=== PATIENT | female | born 1965 | race Caucasian/White ===

== ENCOUNTER 2023-09-03 10:05 | Outpatient (OUT) | payer OTHER, SELFPAY ==
[2023-09-03 11:19] LABS: Basophils Absolute Auto 0.1 10^3/uL (0.0-0.1); Basophils Percent Auto 0.9 % (0.2-2.0); Eosinophils Absolute Auto 0.2 10^3/uL (0.0-0.7); Eosinophils Percent Auto 3.5 % (0.9-7.0); Hematocrit 45.5 % (36.0-48.0); Hemoglobin 14.6 g/dL (12.0-16.0); Immature Granulocytes Abs Auto 0.02 10^3/uL (0.00-0.03); Immature Granulocytes Pct Auto 0.3 % (0.0-0.5); Lymphocytes Absolute Auto 1.7 10^3/uL (1.2-3.8); Lymphocytes Percent Auto 25.4 % (20.5-60.0); Mean Corpuscular HGB Conc 32.1 g/dL (29.9-35.2); Mean Corpuscular Hemoglobin 28.2 pg (26.7-34.0); Mean Platelet Volume 10.2 fL (9.5-13.5); Monocytes Absolute Auto 0.7 10^3/uL (0.3-0.8); Monocytes Percent Auto 10.6 % (1.7-12.0); Neutrophils Absolute Auto 3.9 10^3/uL (1.4-6.5); Neutrophils Percent Auto 59.3 % (43.0-75.0); Platelet Count 218 10^3/uL (150-450); Red Blood Count 5.17 10^6/uL (4.20-5.40); Red Cell Distribution Width 13.8 % (11.0-15.0); White Blood Count 6.5 10^3/uL (4.0-11.0)
[2023-09-03 11:46] LABS: Alanine Aminotransferase 18 U/L (14-59); Albumin Level 3.9 g/dL (3.4-5.0); Alkaline Phosphatase 105 U/L (46-116); Anion Gap 13.9; Aspartate Amino Transferase 27 U/L (15-37); BUN Creatinine Ratio 13.2; Bilirubin Total 1.2 mg/dL (0.2-1.0); Calcium 9.4 mg/dL (8.5-10.1); Carbon Dioxide 26.7 mmol/L (21.0-32.0); Chloride 105 mmol/L (98-107); Chol HDL Ratio 2.3; Cholesterol 183 mg/dL (<=200); Estimated GFR (African America >60 (>=60); Estimated GFR (Non-African Ame >60 (>=60); Globulin 4.1 g/dL; Glucose 107 mg/dL (74-106); HDL Cholesterol 79 mg/dL (40-60); Potassium 3.6 mmol/L (3.5-5.1); Sodium 142 mmol/L (136-145); Triglycerides 94 mg/dL (<=150); VLDL CHOLESTEROL 18.8 mg/dL
[2023-09-03 12:11] LABS: Estimated Average Glucose 114 mg/dL; Glycohemoglobin A1C 5.6 % (4.5-6.2)
[2023-09-05 12:07] LABS: Insulin 35.9 uIU/mL (2.6-24.9)
== END 2023-09-03 10:06 | disposition home or self-care (01) ==
LOC: LAB 10:13
PROVIDERS: PCP Family Medicine; Visit Provider Family Medicine
DX: Z00.00 Encounter for general adult medical examination without abnormal findings (principal)
CPT/HCPCS: 36415; 80053; 80061; 82306; 83036; 83525; 83540; 84436; 84443; 84481; 85025

== ENCOUNTER 2023-12-31 10:54 | Outpatient (OUT) | payer OTHER, SELFPAY ==
--- NOTE | 2023-12-31 10:56 | MM_ITS ---
Patient Name: RICHELLE MONTES MR#: [id number] : 1965 Exam Date: 12/31/2023 Ordering Doctor: DR Nick Ledbetter . RADIOLOGY REPORT PROCEDURE: MM TOMOSYNTHESIS SCREENING BI COMPARISON: None. INDICATIONS: Screening Calculator Name NCI Breast Cancer Risk Assessment Tool 5 Year Breast Cancer Risk n/a% Lifetime Breast Cancer Risk n/a% Personal Breast Cancer Yes Personal Ovarian Cancer No Treatments Breast cancer right breast Age 47 Chemo/Radiation with lumpectomy Family Cancers Mother with breast cancer at age 42; Grandmother-maternal with breast cancer at age 73. LOCATION: [facility] BREAST COMPOSITION: Almost entirely fatty. FINDINGS: DIAGNOSTIC CATEGORY 2--BENIGN FINDING: RIGHT BREAST: No significant suspicious finding. Scattered benign-appearing calcifications are present. Stable surgical changes and scarring posterior upper-outer quadrant. No significant change has occurred. LEFT BREAST: No significant suspicious finding. Scattered benign-appearing calcifications are present. No significant change has occurred. RECOMMENDATIONS: ROUTINE MAMMOGRAM AND CLINICAL EVALUATION IN 12 MONTHS. PLEASE NOTE: A NORMAL MAMMOGRAM DOES NOT EXCLUDE THE POSSIBILITY OF BREAST CANCER. A CLINICALLY SUSPICIOUS PALPABLE LUMP SHOULD BE BIOPSIED. Dictated by: Jose M Castillo M.D. on 12/31/2023 at 14:20 Approved by: Jose M Castillo M.D. on 12/31/2023 at 14:23
--- OUTSIDE RECORDS SUMMARY | 2023-12-31 11:15 | XMS_ITS | CCD ---
Author Name Unknown Address [address] [place] [address] Organization [facility] Care Team Providers Care Plastics Engineer Name Role Phone PHYSICIAN, DEFAULT Unavailable Unavailable PHYSICIAN, DEFAULT Unavailable Unavailable JUICE NAPOLES Unavailable Unavailable Heath Silva Unavailable CRISTINA, DR BURNHAM Primary Care Unavailable ENGSHANNAN, DR NORA Zamorano Admitting Unavailable ENGELELeni, DR NORA Zamorano Consulting Unavailable CECILIA, DR NORA Zamorano Attending Unavailable ZIEBER, DR JOSE M Farrar Consulting Unavailable CRISTINA, DR BURNHAM Primary Care Unavailable MISC, DR BOWERS Attending Unavailable MISC, DR BOWERS Admitting Unavailable MISC, DR BOWERS Consulting Unavailable CRISTINA, DR BURNHAM Primary Care Unavailable CRISTINA, DR BURNHAM Consulting Unavailable CRISTINA, DR BURNHAM Attending Unavailable CRISTINA, DR BURNHAM Admitting Unavailable CRISTINA, DR BURNHAM Consulting Unavailable CRISTINA, DR BURNHAM Attending Unavailable CRISTINA, DR BURNHAM Admitting Unavailable CRISTINA, DR BURNHAM Primary Care Unavailable ENGSHANNAN, DR NORA Zamorano Admitting Unavailable ENGELELeni, DR NORA Zamorano Attending Unavailable SHAWANDA, DR JTET Burns Consulting Unavailable CRISTINA, DR BURNHAM Primary Care Unavailable CECILIA, DR NORA Zamorano Consulting Unavailable Chacha Ledbetter MD Primary Care Provider [phone] FAHEEM ROCK Referring Unavailable CHACHA LEDBETTER Primary Care Unavailable Chacha Ledbetter MD Primary Care Provider [phone] JOSUE HINOJOSA Attending Unavailable JOSUE HINOJOSA Attending Unavailable JOSUE HINOJOSA Attending Unavailable Chacha Ledbetter MD Primary Care Provider [phone] Medications Current Medications Medication Drug Class(es) Dates Sig (Normalized) Sig (Original) acetaminophen 325 mg / HYDROcodone bitartrate 5 mg oral tablet (6 sources) Opioid Agonist Start: 07-08-2021 take 1 tablet by mouth every four hours as needed for pain HYDROcodone-Acetam inophen 5-325 MG 1 tablet as needed for pain Orally up to every 4 hrs for 3 days Jun, Active [id number] actuat albuterol 0.09 mg/actuat metered dose inhaler (3 sources) beta2-Adrenergic Agonist Start: 02-13-2019 take 2 puff(s) by inhalation every four hours as needed for wheezing albuterol (PROVENTIL HFA;VENTOLIN HFA) 90 mcg/actuation inhaler Indications: Upper respiratory tract infection, unspecified type , Cough in adult Inhale 2 puffs every 4 (four) hours as needed for wheezing. 18 g 4 02/13/2019 Active Start: 08-13-2017 PROAIR HFA 90 mcg/actuation inhaler albuterol HFA (P roAir HFA) 90 mcg/act inhaler every 4 (four) hours. 0 Active amLODIPine 10 mg oral tablet (8 sources) Dihydropyridine Calcium Channel Thalia Start: 10-13-2020 take 1 tablet by mouth in the morning amLODIPine (Norvasc) 10 MG tablet Take 10 mg by mouth in the morning. 0 03/14/2023 Active Comment on above: TK 1 T PO QD cholecalciferol 0.025 mg oral tablet (3 sources) Vitamin D take 1 tablet by mouth every twenty-four hours Vitamin D3 25 MCG (1000 UT) 1 tablet Orally Once a day Active diclofenac sodium 75 mg delayed release oral tablet (6 sources) Nonsteroidal Anti-inflammatory Drug take 1 tablet by mouth every twelve hours Diclofenac Sodium 75 MG 1 tablet Orally Twice a day Active doxepin hydrochloride 10 mg oral capsule (1 source) Tricyclic Antidepressant take 1 capsule by mouth once daily doxepin (SINEquan) 10 mg capsule Take 1 capsule (10 mg total) by mouth nightly. 0 Active ferrous sulfate 325 mg oral tablet (3 sources) take 1 tablet by mouth every twenty-four hours Iron 325 (65 Fe) MG 1 tablet Orally Once a day Active fluocinonide 0.0005 mg/mg topical ointment (1 source) Corticosteroid Start: 03-10-2023 fluocinonide (Lidex) 0.05 % ointment APPLY TOPICALLY TO HANDS AND KNEES TWICE DAILY 0 03/10/2023 Active Iron (3 sources) take 1 tablet by mouth once daily Iron 325 (65 Fe) MG 1 tablet Orally Once a day Active levoFLOXacin 500 mg oral tablet (1 source) Quinolone Antimicrobial Start: 10-22-2022 take 1 tablet by mouth in the morning levoFLOXacin (Levaquin) 500 MG tablet Take 1 tablet by mouth in the morning. 0 10/22/2022 Active levothyroxine sodium 0.15 mg oral tablet (9 sources) l-Thyroxine Start: 04-16-2023 levothyroxine (SYNTHROID, LEVOTHROID) 150 MCG tablet Indications: Postablative hypothyroidism Take 1 tablet (150 mcg total) by mouth in the morning. 2 tabs on Saturdays and Sundays. 114 tablet 3 09/03/2023 Active Start: 09-19-2012 take 1 tablet by marcelina th once daily levothyroxine (SYNTHROID) 150 mcg tablet Take 1 tablet by mouth once daily. 0 09/19/2012 Active take 1 tablet by marcelina th once daily in the morning Levothyroxine Sodium 150 MCG 1 tablet in the morning on an empty stomach Orally Once a day Active Comment on above: Take 1 tablet by marcelina th once daily. 24 hr metFORMIN hydrochloride 500 mg extended release oral tablet (9 sources) Biguanide Start: 09-03-2023 take 1 tablet by mouth once daily at dinner metFORMIN XR (GLUCOPHAGE XR) 500 mg 24 hr tablet Indications: Type 2 diabetes mellitus without complication, without long-term current use of insulin ([facility]) Take 1 tablet (500 mg total) by mouth daily with dinner. 90 tablet 3 09/03/2023 Active Start: 10-21-2022 take 1 tablet by marcelina th at mealtime metFORMIN (Glucophage) 500 MG tablet Take 500 mg by mouth in the evening. Take with meals. 0 10/21/2022 Active Start: 03-14-2017 take 2 tablets by mo uth twice daily at mealtime metFORMIN ER (GLUCOPHAGE XR) 500 mg 24 hr tablet TK 2 TS PO BID WITH A MEAL 1 03/14/2017 Active take 1 tablet by marcelina th every twenty-four hours metFORMIN HCl ER 500 MG 1 tablet with evening meal Orally Once a day Active Comment on above: TK 2 TS PO BID WITH A MEAL methylPREDNISolone (1 source) Corticosteroid Start: 2021 methylPREDNISolone (Medrol Dospak) 4 MG tablets FOLLOW PACKAGE DIRECTIONS 0 09/11/2022 Active multivitamin capsule (1 source) take 1 capsule by mouth in the morning multivitamin capsule Take 1 capsule by mouth in the morning. 0 Active Multivitamin preparation (6 sources) take 1 tablet by mouth once daily Multi Vitamin - 1 tablet Orally Once a day Active predniSONE 10 mg oral tablet (1 source) Start: 2022 take 2 tablets by mouth twice daily, then take 1 tablet by mouth twice daily, then take 1 tablet by mouth once daily predniSONE (Deltasone) 10 MG tablet Indications: Osteoarthritis of right ankle and foot Take 2 pills by mouth twice daily for 5 days, take 1 pill twice daily for 5 days then 1 pill once daily for 5 days. 35 tablet 1 08/02/2023 Active simvastatin 20 mg oral tablet (7 sources) HMG-CoA Reductase Inhibitor Start: 2022 take 1 tablet by mouth in the evening simvastatin (Zocor) 20 MG tablet Take 20 mg by mouth in the evening. 0 03/18/2023 Active take 1 tablet by marcelina th every twenty-four hours Simvastatin 20 MG 1 tablet in the evenin g Orally Once a day Active 24 hr verapamil hydrochloride 200 mg extended release oral capsule (2 sources) Calcium Channel Thalia Start: 04-18-2019 take 2 capsules by mouth once daily in the evening verapamil HCl ER (VERELAN PM) 200 mg capsule, [address] Indications: Essential hypertension Take 2 capsules (400 mg total) by mouth daily. 180 capsule 0 04/18/2019 Active Start: 09-19-2012 take 200 mg by mouth once daily at bedtime verapamil PM 200 mg CPCT Take 200 mg by mouth daily at bedtime. 0 09/19/2012 Active Comment on above: Take 200 mg by mouth daily at bedtime. Vitamin D3 25 MCG (1000 UT) (3 sources) take 1 tablet by mouth once daily Vitamin D3 25 MCG (1000 UT) 1 tablet Orally Once a day Active Completed/Discontinued Medications Medication Drug Class(es) Dates Sig (Normalized) Sig (Original) amitriptyline hydrochloride 25 mg oral tablet (8 sources) Tricyclic Antidepressant Start: 09-19-2012 take 1 tablet by mouth once daily at bedtime amitriptyline 25 mg tablet Take 1 tablet by mouth daily at bedtime. 0 09/19/2012 Active take 1 tablet by mouth once stephen y amitriptyline (ELAVIL) 10 mg tablet Take 1 tablet (10 mg total) by mouth nightly. 0 Active Comment on above: Take 1 tablet by marcelina th daily at bedtime. lisinopril 5 mg oral tablet (2 sources) Angiotensin Converting Enzyme Inhibitor Start: 04-11-20 take 1 tablet by mouth once daily lisinopril (ZESTRIL, PRINIVIL) 5 mg tablet TK 1 T PO QD 1 04/11/2017 Active Comment on above: TK 1 T PO QD MULTIVITAMIN TABLET (1 source) Start: 07-08-20 MULTIVITAMIN TABLET Triamcinolone (5 sources) Corticosteroid Start: 01-13-20 Kenalog -40 mg Jan, 40 mg Start: 06-17-2021 Kenalog -40 mg Jun, 40 mg Problems Active Problems Problem Classification Problem Date Documented Date Episodic/Chronic Cancer of breast (3 sources) Intraductal carcinoma in situ of breast; Translations: [Intraductal carcinoma in situ of unspecified breast] Onset: 08-11-2013 08-11-2013 Chronic Complications of surgical procedures or medical care (2 sources) Postprocedural hypothyroidism; 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] Onset: 10-08-2018 11-15-2023 Chronic Diabetes mellitus without complication (2 sources) Type 2 diabetes mellitus without complications; Translations: [Type 2 diabetes mellitus] Onset: 05-21-2017 05-21-2017 Chronic Essential hypertension (1 source) Hypertensive disorder; Translations: [Essential (primary) hypertension] Onset: 05-21-2017 05-21-2017 Chronic Menstrual disorders (1 source) Irregular periods; Translations: [Irregular menstruation, unspecified] Onset: 04-20-2013 04-20-2013 Chronic Osteoarthritis (12 sources) Osteoarthritis of left knee joint; Translations: [Unilateral primary osteoarthritis, left knee] Onset: 11-04-2021 Resolved: 02-03-2022 Chronic Other congenital anomalies (1 source) Congenital deformity of toe; Translations: [Congenital deformity of feet, unspecified, unspecified foot] Onset: 04-30-2023 04-30-2023 Chronic Other female genital disorders (1 source) Complex atypical endometrial hyperplasia; 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]] Onset: 10-07-2018 10-07-2018 Chronic Other upper respiratory infections (1 source) Acute sinusitis, unspecified; Translations: [ACUTE SINUSITIS UNSPECIFIED] Onset: 09-30-2022 Episodic Residual codes; unclassified (1 source) Family history of malignant neoplasm of breast; Translations: [FAMILY HX MALIG NEOPLASM OF BREAST] Onset: 12-25-2022 Episodic Thyroid disorders (1 source) Hypothyroidism; Translations: [Hypothyroidism, unspecified] Onset: 10-08-2018 10-08-2018 Chronic Unclassified (3 sources) CONTACT W/AND (SUSP) EXPOS COVID-19; Translations: [CONTACT W/AND (SUSP) EXPOS COVID-19] Onset: 09-30-2022 Past or Other Problems Problem Classification Problem Date Documented Date Episodic/Chronic Cancer of breast (6 sources) Personal history of malignant neoplasm of breast; Translations: [History of malignant neoplasm of breast] Onset: 06-27-2014 Episodic Complications of surgical procedures or medical care (1 source) Non-healing surgical wound; Translations: [Other complications of procedures, not elsewhere classified, initial encounter] Onset: 11-16-2018 11-16-2018 Episodic Joint disorders and dislocations; trauma-related (4 sources) Other tear of medial meniscus, current injury, left knee, subsequent encounter Onset: 10-14-2021 Resolved: 01-12-2022 Episodic Mood disorders (1 source) Mood disorders Onset: 12-17-2017 12-17-2017 Mycoses (1 source) Onychomycosis; Translations: [Tinea unguium] Onset: 04-30-2023 04-30-2023 Episodic Other connective tissue disease (1 source) Pain in both feet; Translations: [Pain in right foot] Onset: 04-30-2023 04-30-2023 Episodic Other connective tissue disease (1 source) Tendinitis of right posterior tibial tendon; Translations: [Posterior tibial tendinitis, right leg] Onset: 04-30-2023 04-30-2023 Episodic Other diseases of veins and lymphatics (1 source) Vascular insufficiency; Translations: [Venous insufficiency (chronic) (peripheral)] Onset: 04-30-2023 04-30-2023 Episodic Other ear and sense organ disorders (1 source) Subjective tinnitus; Translations: [Tinnitus, unspecified ear] Onset: 07-08-2004 07-08-2004 Episodic Other skin disorders (1 source) Callosity; Translations: [Corns and callosities] Onset: 04-30-2023 04-30-2023 Episodic Residual codes; unclassified (4 sources) Other specified postprocedural states Onset: 10-14-2021 Resolved: 01-12-2022 Episodic Respiratory failure; insufficiency; arrest (adult) (1 source) Hypoxemic respiratory failure; Translations: [Respiratory failure, unspecified with hypoxia] Onset: 10-21-2018 10-21-2018 Episodic Unclassified (1 source) CONTACT W/AND (SUSP) EXPOS COVID-19; Translations: [CONTACT W/AND (SUSP) EXPOS COVID-19] Onset: 09-28-2022 Unclassified (1 source) Onset: 05-10-2018 05-10-2018 Results Test Name Value Interpretation Reference Range Facility MICROALBUMIN - ALBUMIN:CREAT ININE URINE RATIOon 11-12-2023 ALB/CREAT RATIO 13.5 mg/g creat Normal 0.0-30.0 [facility] Comment on above: Performed By: #### M ALBU #### [facility] ([id number]) [address] [place] [address], [address] [place] [address] Albumin DL <= 20 mg/L (U) [Mass/Vol] 0.7 mg/dL Normal 0.0-1.9 [facility] Comment on above: Performed By: #### M ALBU #### [facility] ([id number]) [address] [place] [address], [address] [place] [address] URINE CREAT 51.79 mg/dL Normal [facility] Comment on above: Performed By: #### M ALBU #### [facility] ([id number]) [address] [place] [address], [address] [place] [address] THYROID PROFILEon 11-12-2023 Free T4 [Mass/Vol] 1.37 ng/dL Normal 0.61-1.60 [facility] Comment on above: Performed By: #### T HYR #### [facility] ([id number]) [address] [place] [address] TSH 0.06 uIU/mL Low 0.49-4.67 [facility] Comment on above: Performed By: #### T HYR #### [facility] ([id number]) [address] [place] [id number] Binta 04-06-2023 CNPN Telephone (RADTSA) RICHELLE PELAEZ ([id number]) 1965 F Date Time Provider Department 04/06/23 Adam LINDO During your visit today, we recorded the following information about you: Courtney Garcia LPN 04/06/2023 8:48 AM Signed Richelle called wondering if she needs to continue follow up with Dr. Lindo. She said she completed radiation therapy years ago, 2011. She said Dr. Ledbetter is her pcp and she sees him when she needs to. I explained that if Dr. Lindo agrees to releasing her as a patient that Dr. Ledbetter will need to order her yearly mammograms. Please advise. KRISHNA Geronimo LPN 04/06/2023 3:00 PM Signed I left a message notifying Richelle that she can continue follow up with her PCP. She is due for a bilateral mammogram mid Dec 2023 and she will need her PCP to order it. I encouraged her to call with further questions/concerns. Courtney Garcia LPN Allergies As of Date: 04/06/2023 (No Known Allergies) Date Reviewed: 01/15/2022 Reviewed by: Laurie Suresh, AMBER - Fully Assessed Reason for Visit: Patient Question [5817] Prescriptions as of 04/06/2023 - amLODIPine (NORVASC) 10 mg tablet TK 1 T PO QD - PROAIR HFA 90 mcg/actuation inhaler - lisinopril (ZESTRIL, PRINIVIL) 5 mg tablet TK 1 T PO QD - metFORMIN ER (GLUCOPHAGE XR) 500 mg 24 hr tablet TK 2 TS PO BID WITH A MEAL - amitriptyline 25 mg tablet Take 1 tablet by mouth daily at bedtime. - levothyroxine (SYNTHROID) 150 mcg tablet Take 1 tablet by mouth once daily. - verapamil PM 200 mg CPCT Take 200 mg by mouth daily at bedtime. 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 Admission #: [id number] Family : Order #: [id number] CLICK HERE TO VIEW EXAM RADIOLOGY REPORT PROCEDURE: MAMMOGRAM DIAGNOSTIC 3D BILATERAL CAD COMPARISON: MG MAMM DIAGNOSTIC 3D MARGARITA CAD, 01/01/2022. MG MAMM MARGARITA DIAG W CAD, 12/20/2020. INDICATIONS: Personal history of malignant neoplasm of breast Calculator Name NCI Breast Cancer Risk Assessment Tool 5 Year Breast Cancer Risk n/a% Lifetime Breast Cancer Risk n/a% Personal Breast Cancer Yes Personal Ovarian Cancer No Treatments Breast cancer right breast Age 47 Chemo/Radiation with lumpectomy Family Cancers Mother with breast cancer at age 42; Grandmother-maternal with breast cancer at age 73. LOCATION: [facility] BREAST COMPOSITION: Almost entirely fatty. FINDINGS: DIAGNOSTIC CATEGORY 2--BENIGN FINDING. NO CHANGE FROM COMPARISON. Scattered benign-appearing calcifications are present. Scattered benign-appearing lymph nodes are present. RIGHT BREAST: Asymmetrically small. Architectural distortion and microcalcifications quadrant, stable, postsurgical changes. LEFT BREAST: No significant suspicious finding. RECOMMENDATIONS: ROUTINE MAMMOGRAM AND CLINICAL EVALUATION IN 12 MONTHS. PLEASE NOTE: A NORMAL MAMMOGRAM DOES NOT EXCLUDE THE POSSIBILITY OF BREAST CANCER. A CLINICALLY SUSPICIOUS PALPABLE LUMP SHOULD BE BIOPSIED. Dictated by: Jett Magdaleno MD on 12/21/2022 at 13:46 Approved by: Jett Magdaleno MD on 12/21/2022 at 13:48 Normal [facility] Covid-19 PCR (CVDTBH)on 09-09 SARS-CoV-2 (COVID-19) RNA ERIC+probe Ql (Unsp spec) Not detected Normal NOT DETECTED [facility] Comment on above: Result Comment: When diagnostic testing is negative, the possibility of a false negative should be considered in the context of a patient's recent exposures and the presence of clinical signs and symptoms consistent with SARS-CoV-2. This test is not yet approved or cleared by the [place] FDA. When there are no FDA-approved or cleared tests available, and other criteria are met, FDA can make tests available under an emergency access mechanism called an Emergency Use Authorization (EUA). The EUA for this test is supported by the [place] of Health and Human Service's declaration that circumstances exist to justify the emergency use of in vitro diagnostics for the detection and/or diagnosis of the virus that causes COVID-19. This EUA will remain in effect for the duration of the COVID-19 declaration justifying emergency of IVDs, unless it is terminated or revoked by the FDA (after which the test may no longer be used). Performed By: #### C VDTBH #### [facility] [address] [place] [address] Dr. Lisbeth Ramirez INFLUENZA A AND B [facility] 09-28 [facility] SEE BELOW Normal [facility] Comment on above: Result Comment: Nega tive for Flu A protein angiten. Infection due to Flu A cannot be ruled out. Flu A angiten in the sample may be below the detection limit of the test. Performed By: #### I NFLUAB #### [facility] [address] [place] [address] Dr. [facility] Normal [facility] Comment on above: Result Comment: Nega tive for Flu B protein antigen. Infection due to Flu B cannot be ruled out. Flu B antigen in the sample may be below the detection limit of the test. Performed By: #### I NFLUAB #### [facility] [address] [place] [address] Dr. Lisbeth Ramirez INFLUENZA A AG Negative Normal NEGATIVE SEE COMMENT [facility] Comment on above: Performed By: #### I NFLUAB #### [facility] [address] [place] [address] Dr. Lisbeth Ramirez INFLUENZA B AG Negative Normal NEGATIVE SEE COMMENT [facility] Comment on above: Performed By: #### I NFLUAB #### [facility] [address] [place] [address] Dr. Lisbeth Ramirez INTERNAL CONTROLS Within Normal Limits Normal Wi thin Normal Limits [facility] Comment on above: Performed By: #### I NFLUAB #### [facility] [address] [place] [address] Dr. Lisbeth Ramirez INSULINon 08-29-2022 Insulin 30.4 uIU/mL Critically high 2.6-24.9 [facility] Comment on above: Performed By: #### I NSULIN #### [facility] [address] [place] [address] Dr. Lisbeth Ramirez CBC AUTO DIFFon 08-28-2022 BASO # 0.1 103/ul Normal 0.0-0.1 [facility] Comment on above: Performed By: #### C BC #### [facility] [address] [place] [address] Dr. Lisbeth Ramirez Basophils/100 WBC (Bld) 0.8 % Normal 0.2-2.0 [facility] Comment on above: Performed By: #### C BC #### [facility] [address] [place] [address] Dr. Lisbeth Ramirez EO # 0.2 103/ul Normal 0.0-0.7 [facility] Comment on above: Performed By: #### C BC #### [facility] [address] [place] [address] Dr. Lisbeth Ramirez Eosinophils/100 WBC (Bld) 2.5 % Normal 0.9-7.0 [facility] Comment on above: Performed By: #### C BC #### [facility] [address] [place] [address] Dr. Lisbeth Ramirez Erythrocyte distribution width (RBC) [Ratio] 13.0 % Normal 11.0-15.0 [facility] Comment on above: Performed By: #### C BC #### [facility] [address] [place] [address] Dr. Lisbeth Ramirez Hematocrit (Bld) [Volume fraction] 42.1 % Normal 36.0-48.0 [facility] Comment on above: Performed By: #### C BC #### [facility] [address] [place] [address] Dr. Lisbeth Ramirez Hemoglobin (Bld) [Mass/Vol] 14.0 g/dL Normal 12.0-16.0 [facility] Comment on above: Performed By: #### C BC #### [facility] [address] [place] [address] Dr. Lisbeth Ramirez IG # 0.02 10e3/ul Normal 0.00-0.03 [facility] Comment on above: Performed By: #### C BC #### [facility] [address] [place] [address] Dr. Lisbeth Ramirez IG % 0.2 % Normal 0.0-0.5 [facility] Comment on above: Performed By: #### C BC #### [facility] [address] [place] [address] Dr. Lisbeth Ramirez LYMPH # 1.8 103/ul Normal 1.2-3.8 [facility] Comment on above: Performed By: #### C BC #### [facility] [address] [place] [address] Dr. Lisbeth Ramirez Lymphocytes/100 WBC (Bld) 20.9 % Normal 20.5-60.0 [facility] Comment on above: Performed By: #### C BC #### [facility] [address] [place] [address] Dr. Lisbeth Ramirez MANUAL DIFF REQ NO Normal [facility] Comment on above: Performed By: #### C BC #### [facility] [address] [place] [address] Dr. Lisbeth Ramirez MCH (RBC) [Entitic mass] 28.7 pg Normal 26.7-34.0 [facility] Comment on above: Performed By: #### C BC #### [facility] [address] [place] [address] Dr. Lisbeth Ramirez MCHC (RBC) [Mass/Vol] 33.3 g/dL Normal 29.9-35.2 [facility] [facility] Comment on above: Performed By: #### C BC #### [facility] Laboratory [address] [place] [address] Dr. Lisbeth Ramirez MCV (RBC) [Entitic vol] 86.4 fL Normal 81.0-99.0 [facility] Comment on above: Performed By: #### C BC #### [facility] [address] [place] [address] Dr. Lisbeth Ramirez MONO # 0.8 103/ul Normal 0.3-0.8 [facility] Comment on above: Performed By: #### C BC #### [facility] [address] [place] [address] Dr. Lisbeth Ramirez Monocytes/100 WBC (Bld) 8.8 % Normal 1.7-12.0 [facility] Comment on above: Performed By: #### C BC #### [facility] [address] [place] [address] Dr. Lisbeth Ramirez NEUT # 5.8 103/ul Normal 1.4-6.5 [facility] Comment on above: Performed By: #### C BC #### [facility] [address] [place] [address] Dr. Lisbeth Ramirez Neutrophils/100 WBC (Bld) 66.8 % Normal 43.0-75.0 [facility] Comment on above: Performed By: #### C BC #### [facility] [address] [place] [address] Dr. Lisbeth Ramirez Platelet mean volume (Bld) [Entitic vol] 10.5 fL Normal 9.5-13.5 [facility] Comment on above: Performed By: #### C BC #### [facility] [address] [place] [address] Dr. Lisbeth Ramirez PLT 222 103/ul Normal 150-450 [facility] Comment on above: Performed By: #### C BC #### [facility] [address] [address] [address] Lisbeth Ramirez RBC 4.87 106/ul Normal 4.20-5.40 [facility] Comment on above: Performed By: #### C BC #### [facility] [address] [address] [address] Lisbeth Ramirez WBC 8.7 103/ul Normal 4.0-11.0 [facility] Comment on above: Performed By: #### C BC #### [facility] [address] [address] [address] Lisbeth Ramirez FREE THYROXINE INDEX T7on FTI 3.80 Normal 1.30-4.50 [facility] Comment on above: Performed By: #### T SH, CMP, LIPID, T7 ####[facility] [address] [place] [address]Dr. Lisbeth Ramirez T3U 33.0 % Normal 30.0-39.0 [facility] Comment on above: Performed By: #### T SH, CMP, LIPID, T7 ####[facility] [address] [place] [address]Dr. Lisbeth Ramirez T4 [Mass/Vol] 11.50 ug/dL Normal 4.80-13.90 [facility] Comment on above: Performed By: #### T SH, CMP, LIPID, T7 ####[facility] [address] [place] [address]Dr. Lisbeth Ramirez GLYCOHEMOGLOBIN A1Con 2021 ADA RECOMMENDATION SEE BELOW Normal [facility] Comment on above: Result Comment: ADA RECOMMENDED LIMIT 4.0 - 6.0 ADA THERAPEUTIC TARGET < 7.0 ACTION SUGGESTED > 7.0 Performed By: #### A 1C #### [facility] [address] [address] [address] Lisbeth Ramirez Glucose [Mass/Vol] 105 mg/dL Normal [facility] Comment on above: Performed By: #### A 1C #### [facility] [address] [place], [place] [address] Dr. Lisbeth Ramirez HbA1c (Bld) [Mass fraction] 5.3 % Normal 4.5-6.2 [facility] Comment on above: Performed By: #### A 1C #### [facility] [address] [address] Lisbeth Ramirez IRONon 08-28-2022 Iron [Mass/Vol] 54.0 ug/dL Normal 50.0-170.0 [facility] Comment on above: Performed By: #### I DAGO #### [facility] [address] [address] [address] Lisbeth Ramirez LIPID PROFILEon 08-28-2022 CHOL-HDL RATIO NORM SEE BELOW Normal [facility] Comment on above: Result Comment: 3.3 - 4.4 LOW RISK 4.4 - 7.1 AVERAGE RISK 7.1 - 11.0 MODERATE RISK >11.0 HIGH RISK Performed By: #### T SH, CMP, LIPID, T7 ####[facility] [address] [place] [address]Dr. Lisbeth Ramirez Cholesterol [Mass/Vol] 187 mg/dL Normal <=200 [facility] Comment on above: Performed By: #### T SH, CMP, LIPID, T7 ####[facility] [address] [place], [place] [address]Hs. Lisbeth Ramirez Cholesterol in HDL [Mass/Vol] 67 mg/dL Critically high 40-60 [facility] Comment on above: Performed By: #### T SH, CMP, LIPID, T7 ####[facility] [address] [place], [place] [address]Bd. Lisbeth Ramirez Cholesterol in LDL [Mass/Vol] 95.8 mg/dL Normal [facility] Comment on above: Performed By: #### T SH, CMP, LIPID, T7 ####[facility] [address] [place] [address]Dr. Lisbeth Ramirez Cholesterol.total/Cho lesterol in HDL [Mass ratio] 2.8 {ratio} Normal [facility] Comment on above: Performed By: #### T SH, CMP, LIPID, T7 ####[facility] [address] [place] [address]Dr. Lisbeth Ramirez HDL NORMAL > or = 60 mg/dl - LOW CARDIOVASCULAR RISK <40 mg/dl - HIGH CARDIOVASCULAR RISK Normal [facility] Comment on above: Performed By: #### T SH, CMP, LIPID, T7 ####[facility] [address] [place] [address]Dr. Lisbeth Ramirez LDL CALC NORMAL SEE BELOW Normal [facility] Comment on above: Result Comment: <100 mg/dl OPTIMAL 100 - 129 mg/dl NEAR OR ABOVE OPTIMAL 130 - 159 mg/dl BORDERLINE HIGH 160 - 189 mg/dl HIGH >190 mg/dl VERY HIGH Performed By: #### T SH, CMP, LIPID, T7 ####[facility] [address] [place] [address]Dr. Lisbeth Ramirez Triglyceride [Mass/Vol] 121 mg/dL Normal <=150 [facility] Comment on above: Performed By: #### T SH, CMP, LIPID, T7 ####[facility] [address] [place] [address]Dr. Lisbeth Ramirez VLDL CALC 24.2 mg/dL Normal [facility] Comment on above: Performed By: #### T SH, CMP, LIPID, T7 ####[facility] [address] [place] [address]Dr. Lisbeth Ramirez PROF 14(COMP METB)on 022 Albumin [Mass/Vol] 4.1 g/dL Normal 3.4-5.0 [facility] Comment on above: Performed By: #### T SH, CMP, LIPID, T7 ####[facility] [address] [place] [address]Dr. Lisbeth Ramirez Albumin/Globulin [Mass ratio] 0.9 {ratio} Normal [facility] Comment on above: Performed By: #### T SH, CMP, LIPID, T7 ####[facility] [address] [place] [address]Dr. Lisbeth Ramirez ALP [Catalytic activity/Vol] 94 U/L Normal 46-116 [facility] Comment on above: Performed By: #### T SH, CMP, LIPID, T7 ####[facility] [address] [place] [address]Dr. Lisbeth Ramirez ALT [Catalytic activity/Vol] 13 U/L Critically low 14-59 [facility] Comment on above: Performed By: #### T SH, CMP, LIPID, T7 ####[facility] [address] [place] [address]Dr. Lisbeth Ramirez Anion gap [Moles/Vol] 11.4 mmol/L Normal [facility] Comment on above: Performed By: #### T SH, CMP, LIPID, T7 ####[facility] [address] [place] [address]Dr. Lisbeth Ramirez AST [Catalytic activity/Vol] 23 U/L Normal 15-37 [facility] Comment on above: Performed By: #### T SH, CMP, LIPID, T7 ####[facility] [address] [place] [address]Dr. Davidajorge Ramirez Bilirubin [Mass/Vol] 0.7 mg/dL Normal 0.2-1.0 [facility] Comment on above: Performed By: #### T SH, CMP, LIPID, T7 ####[facility] [address] [place] [address]Dr. Davidajorge Ramirez Calcium [Mass/Vol] 9.5 mg/dL Normal 8.5-10.1 [facility] Comment on above: Performed By: #### T SH, CMP, LIPID, T7 ####[facility] [address] [place] [address]Dr. Davidajorge Ramirez Chloride [Moles/Vol] 104 mmol/L Normal 98-107 [facility] Comment on above: Performed By: #### T SH, CMP, LIPID, T7 ####[facility] [address] [place] [address]Dr. Lisbeth Ramirez CO2 [Moles/Vol] 25.9 mmol/L Normal 21.0-32.0 [facility] Comment on above: Performed By: #### T SH, CMP, LIPID, T7 ####[facility] [address] [place] [address]Dr. Lisbeth Ramirez Creatinine [Mass/Vol] 0.67 mg/dL Normal 0.55-1.02 [facility] Comment on above: Performed By: #### T SH, CMP, LIPID, T7 ####[facility] [address] [place] [address]Dr. Lisbeth Ramirez EGFR-AF CANADIAN >60 Normal >=60 [facility] [place] Comment on above: Performed By: #### T SH, CMP, LIPID, T7 ####[facility] [address] [place] [address]Dr. Lisbeth Ramirez EGFR-NON AF CANADIAN >60 Normal >=60 [facility] Comment on above: Performed By: #### T SH, CMP, LIPID, T7 ####[facility] [address] [place] [address]Dr. Lisbeth Ramirez Globulin (S) [Mass/Vol] 4.2 g/dL Normal [facility] Comment on above: Performed By: #### T SH, CMP, LIPID, T7 ####[facility] [address] [address]Dr. Lisbeth Ramirez Glucose [Mass/Vol] 103 mg/dL Normal 74-106 [facility] Comment on above: Performed By: #### T SH, CMP, LIPID, T7 ####[facility] [address] [place] [address]Dr. Davidajorge Ramirez Potassium [Moles/Vol] 3.6 mmol/L Normal 3.5-5.1 [facility] Comment on above: Performed By: #### T SH, CMP, LIPID, T7 ####[facility] [address] [place] [address]Dr. Davidajorge Ramirez Protein [Mass/Vol] 8.3 g/dL Critically high 6.4-8.2 [facility] Comment on above: Performed By: #### T SH, CMP, LIPID, T7 ####[facility] [address] [place] [address]Dr. Lisbeth Ramirez Sodium [Moles/Vol] 138 mmol/L Normal 136-145 [facility] Comment on above: Performed By: #### T SH, CMP, LIPID, T7 ####[facility] [address] [place] [address]Dr. Lisbeth Ramirez Urea nitrogen [Mass/Vol] 12.0 mg/dL Normal 7.0-18.0 [facility] Comment on above: Performed By: #### T SH, CMP, LIPID, T7 ####[facility] [address] [place] [address]Dr. Lisbeth Ramirez Urea nitrogen/Creatinine [Mass ratio] 17.9 mg/mg Normal [facility] Comment on above: Performed By: #### T SH, CMP, LIPID, T7 ####[facility] [address] [place] [address]Dr. Lisbeth Ramirez TSHon 08-28-2022 TSH 0.572 uIU/mL Normal 0.358-3.740 [facility] Comment on above: Performed By: #### T SH, CMP, LIPID, T7 ####[facility] [address] [place] [address]DrJuliana Ramirez UA (CLEAN/CATCH) COURSE INSTRUCTOR/MICRO I F IND.on 06-10-2022 Bilirubin Ql (U) Negative Normal NEGATIVE [facility] Comment on above: Performed By: #### U SUMI UMICRO #### [facility] [address] [place] [address] Dr. Lisbeth Ramirez Clarity (U) CLEAR Normal CLEAR [facility] Comment on above: Performed By: #### U SUMI UMICRO #### [facility] [address] [address] [address] Lisbeth Ramirez Color (U) YELLOW Normal YELLOW [facility] Comment on above: Performed By: #### U ACSBLAISE UMICRO #### [facility] [address] [address] [address] Lisbeth Ramirez Glucose Ql (U) Negative Normal NEGATIVE [facility] Comment on above: Performed By: #### U ACSBLAISE UMICRO #### [facility] [address] [address] [address] Lisbeth Ramirez Hemoglobin Ql (U) MODERATE Abnormal NEGATIVE [facility] Comment on above: Performed By: #### U ACSIND, UMICRO #### [facility] [address] [address] [address] Lisbeth Ramirez Ketones Ql (U) Negative Normal NEGATIVE [facility] Comment on above: Performed By: #### U ACSIND, UMICRO #### [facility] [address] [address] [address] Lisbeth Ramirez LEUKOCYTES TRACE Abnormal NEGATIVE [facility] Comment on above: Performed By: #### U ACSIND, UMICRO #### [facility] [address] [address] [address] Lisbeth Ramirez Nitrite Ql (U) Negative Normal NEGATIVE [facility] Comment on above: Performed By: #### U ACSIND, UMICRO #### [facility] [address] [place] [address] Dr. Lisbeth Ramirez pH (U) 6.0 [pH] Normal 5-9 [facility] Comment on above: Performed By: #### U ACSIND, UMICRO #### [facility] [address] [place] [address] Dr. Lisbeth Ramirez SPEC GRAVITY 1.025 Normal 1.005-<=1.025 [facility] Comment on above: Performed By: #### U ACSIND, UMICRO #### [facility] [address] [place] [address] Dr. Lisbeth Ramirez UA PROTEIN Negative Normal NEGATIVE/ TRACE [facility] Comment on above: Performed By: #### U ACSIND, UMICRO #### [facility] [address] [place] [address] Dr. Lisbeth Ramirez UR MICRO IND INDICATED Normal [facility] Comment on above: Performed By: #### U ACSIND, UMICRO #### [facility] [address] [place] [address] Dr. Lisbeth Ramirez Urobilinogen Qn (U) 0.2 {Ricci'U}/dL Normal 0.2 - 1. 0 [facility] Comment on above: Performed By: #### U ACSIND, UMICRO #### [facility] [address] [address] [address] Lisbeth Ramirez URINE MICROSCOPIC ONLYon BACTERIA NONE SEEN Normal NONE SEEN [facility] Comment on above: Performed By: #### U ACSBLAISE, UMICRO #### [facility] [address] [address] [address] Lisbeth Ramirez Bacteria identified Cx Nom (U) NOT INDICATED Normal [facility] Comment on above: Performed By: #### U ACSBLAISE, UMICRO #### [facility] [address] [place] [address] Dr. Lisbeth Ramirez CAST NONE SEEN Normal NONE SEEN [facility] Comment on above: Performed By: #### U ACSBLAISE, UMICRO #### [facility] [address] [place] [address] Dr. Lisbeth Ramirez Crystals LM Nom (Urine sed) NONE SEEN Normal NONE SEEN [facility] Comment on above: Performed By: #### U ACSBLAISE ICRO #### [facility] [address] [place] [address] Dr. Lisbeth Ramirez Epithelial cells LM Ql (Urine sed) FEW Abnormal NONE SEEN /RARE [facility] Comment on above: Performed By: #### U SUMI ICRO #### [facility] [address] [place] [address] Dr. Lisbeth Ramirez MUCOUS NONE SEEN Normal NONE SEEN [facility] Comment on above: Performed By: #### U SUMI UMICRO #### [facility] [address] [place] [address] Dr. Lisbeth Ramirez RBC 2-5 Abnormal 0-2 [facility] Comment on above: Performed By: #### U SUMI UMICRO #### [facility] [address] [place] [address] Dr. Lisbeth Ramirez WBC 0-2 Abnormal NONE SEEN [facility] Comment on above: Performed By: #### U SUMI UMICRO #### [facility] [address] [place] [address] Dr. Lisbeth Ramirez XR knee LT 2Von 01-12-2022 XR knee LT 2V [facility] Main Surveyor [address] [place] [address] XRay Report Signed Patient: Richelle Pelaez MR#: [id number] : 1965 Acct:[id number] Age/Sex: 56 / F ADM Date: 01/12/22 Loc: [facility] Room: Type: [facility] Attending Dr: Heath Silva MD Ordering Provider: Heath Silva MD Date of Service: 01/12/22 XR/XR knee LT 2V: Other tear of medial meniscus, current injury, left knee, lyons Copies to: Heath Silva MD Left knee 01/12/2022. CLINICAL DATA: Left knee pain. FINDINGS: Standing AP and lateral views of the left knee were obtained. No acute fracture or dislocation is identified. There is loss of the joint space in the medial femorotibial compartment. Marginal osteophyte formation is seen in this location and in the patellofemoral compartment. No bony erosion or destruction is visualized. There are a small amount of fluid and collections of air in the suprapatellar region. XR/XR knee LT 2V IMPRESSION: Degenerative changes. No acute bony abnormality. Subcutaneous air in the suprapatellar region, potentially iatrogenic and related to recent intervention. Impression dictated by: Andrea Carney Jr., M.D.01/12/2022 4:14 PM Dictation Location: [place] [address] Transcribed By: [facility] 01/12/22 1614 Dictated By: Andrea Carney Jr, MD 01/12/22 1608 Signed By: 01/12/22 1614 Normal [facility] MG MAMM DIAGNOSTIC 3D MARGARITA CA Don 01-01-2022 MG MAMM DIAGNOSTIC 3D MARGARITA CAD Patient: RICHELLE PELAEZ Exam Date: 01/01/2022 : 1965 Gender:F Ordering : DR NORA LINDO M.D. Admission #: [id number] Family : Order #: [id number] CLICK HERE TO VIEW EXAM RADIOLOGY REPORT PROCEDURE: MAMMOGRAM DIAGNOSTIC 3D BILATERAL CAD COMPARISON: MG MAMM MARGARITA DIAG W CAD, 12/05/2019. MG MAMM MARGARITA DIAG W CAD, 12/20/2020. INDICATIONS: Personal history of malignant neoplasm of breast Calculator Name NCI Breast Cancer Risk Assessment Tool 5 Year Breast Cancer Risk n/a% Lifetime Breast Cancer Risk n/a% Personal Breast Cancer Yes Personal Ovarian Cancer No Treatments Breast cancer right breast Age 47 Chemo/Radiation with lumpectomy Family Cancers Mother with breast cancer at age 42; Grandmother-maternal with breast cancer at age 73. LOCATION: [facility] BREAST COMPOSITION: Almost entirely fatty. FINDINGS: DIAGNOSTIC CATEGORY 2--BENIGN FINDING: RIGHT BREAST: No significant suspicious finding. Stable surgical scarring within upper-outer quadrant. Scattered benign-appearing calcifications are present and stable. No significant change has occurred. LEFT BREAST: No significant suspicious finding. Scattered benign-appearing calcifications are present. No significant change has occurred. RECOMMENDATIONS: ROUTINE MAMMOGRAM AND CLINICAL EVALUATION IN 12 MONTHS. PLEASE NOTE: A NORMAL MAMMOGRAM DOES NOT EXCLUDE THE POSSIBILITY OF BREAST CANCER. A CLINICALLY SUSPICIOUS PALPABLE LUMP SHOULD BE BIOPSIED. Dictated by: Jose M Castillo M.D. on 01/01/2022 at 15:32 Approved by: Jose M Castillo M.D. on 01/01/2022 at 15:42 Normal [facility] TSHon 05-22-2019 TSH Qn 2.23 uIU/ml Normal 0.47-4.68 [facility] Comment on above: Performed By: #### 7 50, 800, 1000, 1005, 4500, 4520, 4575 #### [facility] Unless Otherwise Noted [address] [place], [place] [id number] / [facility] #1824/CLIA # [id number] VITAMIN B12on 05-22-2019 Cobalamin (Vitamin B12) [Mass/Vol] 713.0 pg/mL Normal 239.0-931.0 [facility] Comment on above: Performed By: #### 7 50, 800, 1000, 1005, 4500, 4520, 4575 #### [facility] Unless Otherwise Noted [address] [address] / [facility] #3424/CLIA # [id number] AFINION A1Con 05-19-2019 HbA1c (Bld) [Mass fraction] 5.6 G/DL Normal 4.5-6.0 [facility] Comment on above: Performed By: #### 7 50, 800, 1000, 1005, 4500, 4520, 4575 #### [facility] Unless Otherwise Noted [address] [place] [address] / [facility] #4724/CLIA # [id number] Comprehensiveon 05-19-2019 Albumin [Mass/Vol] 4.4 g/dL Normal 3.5-5.0 [facility] Comment on above: Performed By: #### 7 50, 800, 1000, 1005, 4500, 4520, 4575 #### [facility] Unless Otherwise Noted [address] [place] [address] / [facility] #4724/CLIA # [id number] ALP [Catalytic activity/Vol] 98.0 U/L Normal 38.0-126.0 [facility] Comment on above: Performed By: #### 7 50, 800, 1000, 1005, 4500, 4520, 4575 #### [facility] Unless Otherwise Noted [address] [address] / [facility] #4724/CLIA # [id number] ALT [Catalytic activity/Vol] 16.0 U/L Normal 13.0-69.0 [facility] Comment on above: Performed By: #### 7 50, 800, 1000, 1005, 4500, 4520, 4575 #### [facility] Unless Otherwise Noted [address] [address] / [facility] #4724/CLIA # [id number] Anion gap [Moles/Vol] 7.0 mmol/L Low 10.0-15.0 [facility] Comment on above: Performed By: #### 7 50, 800, 1000, 1005, 4500, 4520, 4575 #### [facility] Unless Otherwise Noted [address] [address] / [facility] #4724/CLIA # [id number] AST [Catalytic activity/Vol] 39.0 U/L Normal 15.0-46.0 [facility] Comment on above: Performed By: #### 7 50, 800, 1000, 1005, 4500, 4520, 4575 #### [facility] Unless Otherwise Noted [address] [address] / [facility] #4724/CLIA # [id number] Bilirubin Ql (U) 0.40 mg/dL Normal 0.20-1.30 [facility] Comment on above: Performed By: #### 7 50, 800, 1000, 1005, 4500, 4520, 4575 #### [facility] Unless Otherwise Noted [address] [address] / [facility] #4724/CLIA # [id number] BUN/Cre Ratio 18.8 Ratio Normal 7.0-27.0 [facility] Comment on above: Performed By: #### 7 50, 800, 1000, 1005, 4500, 4520, 4575 #### [facility] Unless Otherwise Noted [address] [address] / [facility] #4724/CLIA # [id number] Calcium [Mass/Vol] 9.6 mg/dL Normal 8.4-10.2 [facility] Comment on above: Performed By: #### 7 50, 800, 1000, 1005, 4500, 4520, 4575 #### [facility] Unless Otherwise Noted [address] [place] [address] / COLA #4724/CLIA # [id number] Chloride [Moles/Vol] 107.0 mmol/L Normal 98.0-107.0 [facility] [place] Comment on above: Performed By: #### 7 50, 800, 1000, 1005, 4500, 4520, 4575 #### [facility] Unless Otherwise Noted [address] [place] [address] / COLA #4724/CLIA # [id number] CO2 [Moles/Vol] 28.0 mmol/L Normal 22.0-30.0 [facility] Comment on above: Performed By: #### 7 50, 800, 1000, 1005, 4500, 4520, 4575 #### [facility] Unless Otherwise Noted [address] [place] [address] / COLA #4724/CLIA # [id number] Creatinine [Mass/Vol] 0.8 mg/dL Normal 0.5-1.0 [facility] Comment on above: Performed By: #### 7 50, 800, 1000, 1005, 4500, 4520, 4575 #### [facility] Unless Otherwise Noted [address] [place] [address] / COLA #4724/CLIA # [id number] GFR/1.73 sq M predicted among blacks MDRD (S/P/Bld) [Vol rate/Area] 96.9 ml/m1.73 Normal [facility] Comment on above: Performed By: #### 7 50, 800, 1000, 1005, 4500, 4520, 4575 #### [facility] Unless Otherwise Noted [address] [place] [address] / COLA #4724/CLIA # [id number] GFR/1.73 sq M predicted among non-blacks MDRD (S/P/Bld) [Vol rate/Area] 80.1 ml/m1.73 Normal [facility] Comment on above: Performed By: #### 7 50, 800, 1000, 1005, 4500, 4520, 4575 #### [facility] Unless Otherwise Noted [address] [place] [address] / COLA #4724/CLIA # [id number] GFR/1.73 sq M predicted among non-blacks MDRD (S/P/Bld) [Vol rate/Area] 139.1 ml/m1.73 Normal [facility] Comment on above: Performed By: #### 7 50, 800, 1000, 1005, 4500, 4520, 4575 #### [facility] Unless Otherwise Noted [address] [place] [address] / COLA #4724/CLIA # [id number] Glucose [Mass/Vol] 91.0 mg/dL Normal 74.0-106.0 [facility] Comment on above: Performed By: #### 7 50, 800, 1000, 1005, 4500, 4520, 4575 #### [facility] Unless Otherwise Noted [address] [place] [address] / COLA #4724/CLIA # [id number] Potassium [Moles/Vol] 3.9 mmol/L Normal 3.5-5.1 [facility] Comment on above: Performed By: #### 7 50, 800, 1000, 1005, 4500, 4520, 4575 #### [facility] Unless Otherwise Noted [address] [place] [address] / COLA #4724/CLIA # [id number] Protein [Mass/Vol] 7.6 g/dL Normal 6.3-8.2 [facility] Comment on above: Performed By: #### 7 50, 800, 1000, 1005, 4500, 4520, 4575 #### [facility] Unless Otherwise Noted [address] [place] [address] / COLA #4724/CLIA # [id number] Sodium [Moles/Vol] 142.0 mmol/L Normal 137.0-145.0 End [facility] [place] Comment on above: Performed By: #### 7 50, 800, 1000, 1005, 4500, 4562, 4575 #### [facility] Unless Otherwise Noted [address] [place] [address] / COLA #4724/CLIA # [id number] Urea nitrogen [Mass/Vol] 15.0 mg/dL Normal 7.0-17.0 [facility] Comment on above: Performed By: #### 7 50, 800, 1000, 1005, 4500, 4520, 4575 #### [facility] Unless Otherwise Noted [address] [place] [address] / COLA #4724/CLIA # [id number] [facility] 05-19-2019 Free T4 [Mass/Vol] 1.10 ng/dL Normal 0.64-1.79 [facility] Comment on above: Performed By: #### 7 50, 800, 1000, 1005, 4500, 4520, 4575 #### [facility] Unless Otherwise Noted [address] [address] / COLA #4724/CLIA # [id number] [facility] 05-19-2019 Cholesterol [Mass/Vol] 209.0 mg/dL High 0.0-199.0 [facility] Comment on above: Performed By: #### 7 50, 800, 1000, 1005, 4500, 4520, 4575 #### [facility] Unless Otherwise Noted [address] [address] / COLA #4724/CLIA # [id number] Cholesterol in HDL [Mass/Vol] 66.0 mg/dL High 40.0-60.0 [facility] Comment on above: Performed By: #### 7 50, 800, 1000, 1005, 4500, 4520, 4575 #### [facility] Unless Otherwise Noted [address] [address] / COLA #4724/CLIA # [id number] Cholesterol in LDL [Mass/Vol] 118.4 mg/dL High 0.0-100.0 [facility] Comment on above: Performed By: #### 7 50, 800, 1000, 1005, 4500, 4520, 4575 #### [facility] Unless Otherwise Noted [address] [address] / COLA #4724/CLIA # [id number] Cholesterol in VLDL [Mass/Vol] 24.6 mg/dL Normal [facility] Comment on above: Performed By: #### 7 50, 800, 1000, 1005, 4500, 4520, 4575 #### [facility] Unless Otherwise Noted [address] [address] / COLA #4724/CLIA # [id number] Cholesterol.total/Cho lesterol in HDL [Mass ratio] 3.2 {ratio} Normal [facility] Comment on above: Performed By: #### 7 50, 800, 1000, 1005, 4500, 4520, 4575 #### [facility] Unless Otherwise Noted [address] [address] / COLA #4724/CLIA # [id number] Triglyceride [Mass/Vol] 123.0 mg/dL Normal 0.0-150.0 [facility] Comment on above: Performed By: #### 7 50, 800, 1000, 1005, 4500, 4520, 4575 #### [facility] Unless Otherwise Noted [address] [address] / COLA #4724/CLIA # [id number] NEW MICROALBUMINon 9 Creatinine (U) [Mass/Vol] 128.3 mg/dL Normal [facility] Comment on above: Performed By: #### 7 50, 800, 1000, 1005, 4500, 4520, 4575 #### [facility] Unless Otherwise Noted [address] [address] / COLA #4724/CLIA # [id number] Microalbumin 37.0 mg/L High 0.0-30.0 [facility] Comment on above: Performed By: #### 7 50, 800, 1000, 1005, 4500, 4520, 4575 #### [facility] Unless Otherwise Noted [address] [address] / COLA #4724/CLIA # [id number] Urine A/C Ratio 28.8 mg/g Normal 0.0-30.0 [facility] Comment on above: Performed By: #### 7 50, 800, 1000, 1005, 4500, 4520, 4575 #### [facility] Unless Otherwise Noted [address] [place] [address] / COLA #4724/CLIA # [id number] Vital Signs Date Time Vital Sign Value Performing Clinician Facility 01-12-2022 16:00-0500 Body height 157.48 cm Heath Olexa Other [facility] Other 01-12-2022 16:00-0500 Body mass index (BMI) [Ratio] 45.17 kg/m2 Heath Olexa Other [facility] 01-12-2022 16:00-0500 Body weight 112.04 kg Heath Olexa Other [facility] Other 11-04-2021 10:00-0500 Body height 157.48 cm Heath Olexa Other [facility] Other 11-04-2021 10:00-0500 Body mass index (BMI) [Ratio] 46.82 kg/m2 Heath Olexa Other [facility] Other 11-04-2021 10:00-0500 Body weight 116.12 kg Heath Olexa Other [facility] Other 10-14-2021 14:30-0500 Body height 157.48 cm Heath Olexa Other [facility] Other 10-14-2021 14:30-0500 Body mass index (BMI) [Ratio] 46.16 kg/m2 Heath Olexa Other [facility] Other 10-14-2021 14:30-0500 Body weight 114.49 kg Heath Silva Other [facility] Other 05-19-2019 18:58-0400 Body weight 107.1 Kg [facility] Comment on above: Performed By: #### 750, 800, 1000, 1005, 4500, 4520, 4575 #### [facility] Unless Otherwise Noted [address] [place] [address] / COLA #4724/ANTONY # [id number] Encounters Encounter Date Encounter Type Care Provider Facility Start: 11-26-2023 End: 11-26-2023 Patient encounter procedure Josue Hinojosa DPM Work Phone: [facility] Comment on above: Primary osteoarthrit is, left ankle and foot (Primary Dx); Primary osteoarthritis, right ankle and foot Start: 11-22-2023 End: 11-22-2023 ambulatory JOSUE HINOJOSA Not Available Start: 11-16-2023 End: 11-16-2023 ambulatory JOSUE HINOJOSA Not Available Start: 11-15-2023 Orders Only Faheem willson RADIOLOGY NURSE-SENIOR PROGRAM PLANNER Work Phone: [facility] Comment on above: Postablative hypothy roidism (Primary Dx) Start: 11-12-2023 End: 11-13-2023 ambulatory FAHEEM ROCK [facility] Start: 11-03-2023 End: 11-03-2023 ambulatory JOSUE HINOJOSA Not Available Start: 04-06-2023 Telephone encounter Adam Lindo MD Work Phone: [facility] Oncology Comment on above: Patient Question Start: 12-21-2022 End: 12-22-[address] NORA LINDO Facility:[facility] Start: 09-28-2022 End: 09-28-[address] CHACHA LEDBETTER Facility:[facility] Start: 09-02-2022 Encounter for genera l adult medical examination without abnormal findings DR CHACHA LEDBETTER [facility] Start: 08-28-2022 End: 08-29-[address] CHACAH LEDBETTER Facility:[facility] Start: 08-28-2022 End: 08-29-2022 Encounter for general adult medical examination without abnormal findings DR CHACHA LEDBETTER Facility:[facility] Start: 06-14-2022 Encounter for other preprocedural examination DR DOCTOR SCHULZ [facility] Start: 06-10-2022 End: 06-11-[address] CHACHA LEDBETTER Facility:[facility] Start: 06-10-2022 End: 06-11-2022 Encounter for other preprocedural examination DR CHACHA LEDBETTER Facility:[facility] Start: 02-03-2022 End: 02-03-2022 ambulatory Heath Olexa Other [facility] Other Start: 02-03-2022 Office outpatient vi sit 15 minutes Heath Olexa [facility] Start: 01-12-2022 End: 01-12-2022 ambulatory Heath Olexa Other [facility] Other Start: 01-12-2022 Office outpatient vi sit 15 minutes Heath Olexa [facility] Start: 01-01-2022 End: 01-02-[address] CHACHA LEDBETTER Facility:[facility] Start: 11-04-2021 End: 11-04-2021 ambulatory Heath Olexa Other [facility] Other Start: 11-04-2021 Office outpatient vi sit 15 minutes Heath Olexa [facility] [place] [facility] Start: 10-14-2021 End: 10-14-2021 ambulatory Heath Olexa Other [facility] Other Start: 10-14-2021 Office outpatient vi sit 15 minutes Heath Olexa [facility] [place] [facility] Start: 09-11-2021 End: 09-11-2021 ambulatory Heath Olexa Other [facility] Other Start: 09-11-2021 Telephone encounter Heath [facility] Start: 10-24-2018 End: 10-25-2018 Patient encounter procedure DEFAULT PHYSICIAN Facility:[facility] Start: 10-04-2018 Patient encounter procedure Faheem Yuriy RADIOLOGY NURSE-SENIOR PROGRAM PLANNER Work Phone: [facility] Procedures Date Procedure Procedure Detail Performing Clinician Start: 11-12-2023 Microalbumin [Mass/v olume] in Urine by Test strip Faheemlida Rock RADIOLOGY NURSE-SENIOR PROGRAM PLANNER Work Phone: Start: 11-15-2018 Mammography Faheem Joel chahal RADIOLOGY NURSE-SENIOR PROGRAM PLANNER Work Phone: Plan of Treatment Date Care Activity Detail Author Start: 11-12-2024 Urine screening for protein [facility] Start: 09-03-2024 Adult BMI [facility]ening [facility] Start: 09-03-2024 Diabetic foot examination Diabetic Foot [facility] Start: 09-03-2024 Tobacco Screening [facility] Start: 07-03-2024 End: 07-03-2024 Patient encounter procedure 07/03/2024 3:00 PM EDT Office Visit [facility] [address] [place] [address] Chris Nielsen PA [address] [place] [address] [facility] Start: 03-03-2024 End: 03-03-2024 Patient encounter procedure 03/03/2024 11:45 AM EDT Office Visit [facility] [address] [place] [id number] Nadia Antonio MD [address] [place] [address] [facility] Start: 01-26-2024 End: 01-26-2024 Patient encounter procedure 01/26/2024 4:15 PM EDT Procedure Visit [facility] [address] [place] [phone] Josue Hinojosa DPM [address] [place] [address] [facility] Start: 01-10-2024 End: 11-15-2024 Thyroid profile includes TSH FT4 Thyroid profile includes TSH FT4 Lab Routine Postablative hypothyroidism Expected: 01/10/2024 (Approximate), Expires: 11/15/2024 [facility] Work Phone: Comment on above: Expected: 01/10/2024 (Approximate), Expires: 11/15/2024 Start: 07-09-2023 COVID-19 Vaccine ( season) COVID-[address] () [facility] Start: 07-09-2023 Influenza vaccination [facility] Start: 11-08-2022 DEPRESSION ASSESSMENT DEPRESSION ASS ESSMENT [facility] Start: 01-16-2022 COVID-19 VACCINE (4 - Booster for Pfizer series) COVID-19 VACCINE (4 - Booster for Pfizer series) [facility] Start: 10-04-2021 DIABETES SCREEN DIABETES SCREEN [facility] Start: 11-15-2019 Screening for malign ant neoplasm of breast Mammogram [facility] Start: 2017 SHINGRIX VACCINE (1 of 2) SHINGRIX VACCINE (1 of 2) [facility] Start: 2012 COLOGUARD (FIT-DNA) COLOGUARD (FIT-D NA) [facility] Start: 2012 Colonoscopy COLONOSCOPY [facility] Start: 2012 COLORECTAL CANCER SCREENING COLORECTAL CANCER SCREENING [facility] Start: [address] COLONOGRAPHY [facility] Start: 2012 FECAL OCCULT BLOOD FECAL OCCULT BLOO D [facility] Start: 2012 LIPID SCREEN LIPID SCREEN [facility] Start: 2012 SIGMOIDOSCOPY SIGMOIDOSCOPY [facility] Start: 2007 Mammography MAMMOGRAM [facility] Start: 1997 HPV TESTING HPV TESTING [facility] Start: 1997 Screening for malign ant neoplasm of cervix [facility] Start: 1988 PAP TESTING PAP TESTING [facility] Start: 1988 Screening for malign ant neoplasm of cervix Pap Smear [facility] Start: 1986 Administration of varicella zoster vaccine Zoster (Shingles) Vaccine (1 of 2) [facility] Start: 1986 DTaP,Tdap and Td Vaccines (1 - Tdap) DTaP,Tdap and Td Vaccines (1 - Tdap) [facility] Start: 1986 Urine microalbumin profile DTAP,TDAP,TD (1 - Tdap) [facility] Start: 1985 HEPATITIS C SCREENING HEPATITIS C SC REENING [facility] Start: 1985 HIV SCREENING HIV SCREENING [facility] Start: 1979 Depression Screening Depression Scre ening [facility] Start: 1967 Glaucoma screening Diabetic Op hthalmology Exam [facility] Start: 1967 HEPATITIS B (1 of 3 - 3-dose series) HEPATITIS B (1 of 3 - 3-dose series) [facility] Start: 1967 Screening for malign ant neoplasm of colon [facility] Immunizations Immunization Date Immunization Notes Care Provider Kevin hair NEGATED: Highlighted row has not occurred!10-21-2018 influenza, injectable, quadrivalent, preservative free Faheemlida Rock RADIOLOGY NURSE-SENIOR PROGRAM PLANNER Work Phone: [facility] Comment on above: Deferred: Patient Re fused Payers Date Payer Category Payer Private Health Insurance [facility] [employer] [id number] 2022-Present [phone] [address] [address] [place] [address] [id number] 2020 Unknown 1967 Unknown [id number] [id number]. 2.647 1967 Unknown [id number] [id number]. 2.593 1967 Unknown [id number] [id number]. 2.593 1967 Unknown [id number] 2.16.840.1.682623.3.579. 2.593 1967 Unknown [id number] 2.16.840.1.244937.3.579. 2.593 1967 Unknown [id number] 2.16.840.1.858576.3.579. 2.593 1967 Unknown [id number] 2.16.840.1.353413.3.579. 2.1286 1967 Unknown [id number] 2.16.840.1.996925.3.579. 2.1259 1967 Unknown [id number] 2.16.840.1.086196.3.579. 2.1259 1967 Unknown [id number] 2.16.840.1.295737.3.579. 2.1259 1959 Unknown [id number] [id number] 1959 Unknown [id number] Social History Date Type Detail Facility Start: 10-07-2018 End: 11-03-2023 Sex Assigned At [facility] Other Start: 09-22-2012 End: 04-27-2023 Tobacco smoking status [facility] Never smoked tobacco [facility] Start: 09-22-2012 End: 04-27-2023 Tobacco use and exposure Smokeless tobacco non-user [facility] Start: 06-25-2022 Alcohol intake Not Asked Cleyasmin baron [facility] Start: 1965 Sex Assigned At Not on file [facility] Start: 09-03-2023 End: 11-03-2023 Alcohol intake Current drinker of alcohol (finding) [facility] Start: 10-07-2018 End: 11-03-[address] [facility] Frequency of Alcohol Consumption Never [facility] Start: 11-02-2018 Alcohol Comment [facility] Start: 07-05-2023 Alcohol Comment caffeine intak e: 1-2 cups per day. [facility] Medical Equipment Procedure Code Equipment Code Equipment Origin al Text Equipment Identifier Dates TEST ONCE DAILY [id number] Start: 05-23-2019 Monitor blood lyons gar daily [id number] Start: 11-03-2018 Goals Date Patient Goal Desired Activity /State Personal health goal Comment on above: Formatting of this n ote might be different from the original. Evaluation of progress towards goal:Discharge home self care w/spouse/family support Clinical Notes 10-14-2021 to 11-26-2023 Josue Hinojosa DPM - 11/26/2023 9:30 AM ESTTelephone Encounter - Courtney Garcia LPN - 04/06/2023 2:59 PM EDTTelephone Encounter - Courtney Garcia LPN - 04/06/2023 8:40 AM EDT Note Date & Type Note Facility 11-26-2023 History of Presen t illness Narrative See scanned Op note documented in this encounter [facility] 04-06-2023 Miscellaneous Notes Formattin g of this note might be different from the original. I left a message notifying Richelle that she can continue follow up with her PCP. She is due for a bilateral mammogram mid Dec 2023 and she will need her PCP to order it. I encouraged her to call with further questions/concerns. Courtney Garcia LPN Richelle called wondering if she needs to continue follow up with Dr. Lindo. She said she completed radiation therapy years ago, 2011. She [address] Ledbetter is her pcp and she sees him when she needs to. I explained that if Dr. Lindo agrees to releasing her as a patient that Dr. Ledbetter will need to order her yearly mammograms. Please advise. Courtney Garcia LPN documented in this encounter [facility] 02-03-2022 Evaluation note Encounter Date Diagnosis Assessment Notes Jan, Primary osteoarthritis of left knee (ICD-10 - M17.12) Radiographs reviewed with patient and company as advancing degenerative changes at the knee. The patient is suffering from degenerative arthritis involving the knee. We discussed the conservative treatment options which can be beneficial in relieving pain, including gentle non-impact motion exercise and non-steroidal anti-inflammato ry medication. We discussed the use of occasional cortisone injections that can provide pain relief as well as hyaluronan lubricant injection. Patient today opts to work on weight loss to aid in pain relief at the knee. [facility] Other 03-07-2022 Evaluation note* Encounter Date Diagnosis Assessment Notes Treatment Notes Treatment Clinical Notes Jan, Other tear of medial meniscus, current injury, left knee, subsequent encounter (ICD-10 - S83.242D) We performed a kenalog cortisone injection into the knee joint under sterile technique. Patient tolerated the injection well without adverse reaction. We discussed and demonstrated gentle motion exericses as well as quadriceps and hamstring strengthening exerices. Obtained xrays .Call with any questions or concerns. Jan, Primary osteoarthritis of left knee (ICD-10 - M17.12) Jan, Other specified postprocedural states (ICD-10 - Z98.890) [facility] Other 12-28-2021 Evaluation note* Encounter Date Diagnosis Assessment Notes Treatment Notes Treatment Clinical Notes Oct, Other tear of medial meniscus, current injury, left knee, subsequent encounter (ICD-10 - S83.242D) We discussed and demonstrated gentle motion exericses as well as quadriceps and hamstring strengthening exerices. Oct, Primary osteoarthritis of left knee (ICD-10 - M17.12) Oct, Other specified postprocedural states (ICD-10 - Z98.890) Patient off work until 11/19/21 [facility] Other 12-07-2021 Evaluation note* Encounter Date Diagnosis Assessment Notes Treatment Notes Treatment Clinical Notes Oct, Other specified postprocedural states (ICD-10 - Z98.890) Oct, Other tear of medial meniscus, current injury, left knee, subsequent encounter (ICD-10 - S83.242D) We discussed and demonstrated gentle motion exericses as well as quadriceps and hamstring strengthening exerices. Patient will be sending [employer] paper work for off work until next appointment [facility] Other Evaluation noteNo InformationNort [employer] Other Evaluation note* Diagnosis Postablative hypothyroidism- Primary Other postablative hypothyroidism [facility] this [facility] System[facility] note* Diagnosis Primary osteoarthritis, left ankle and foot- Primary Primary osteoarthritis, right ankle and foot documented in this encounter [facility] N[facility]ative - Reported* Type Description Date Medical History asthma Medical History thyroid disease Medical History high blood pressure Medical History diabetes mallitus Medical History high cholesterol Medical History breast nodule Surgical History hysterectomy Surgical History foot surgeries Surgical History sinus surgery Surgical History left knee arthroscopy, medial m enisecectomy. DOS 07/08/21 [facility] Other InstructionsNot on filedocumented in this encounter [facility] Summary Purpose Family History No Family History Records FoundNo Family History Records FoundNo Family History Records FoundNo Family History Records FoundNo Family History Records FoundNo Family History Records FoundNo Family History Records Found Advance Directives Latest Code Status on File Code Status Date Activated Date Inactivated Comments Full Code 10/21/2018 5:41 AM 10/26/2018 5:32 PM Code Status History Code Status Date Activated Date Inactivated Comments Full Code 10/09/2018 5:39 PM 10/12/2018 6:49 PM Additional Source Comments INFORMATION SOURCE (unrecogn ized section and content) DATE CREATED AUTHOR 10/27/2018 [facility] DATE CREATED AUTHOR AUTHOR'S ORGANIZ ATION 05/29/2019 [facility] DATE CREATED AUTHOR AUTHOR'S ORGANIZ ATION 01/13/2022 [facility] DATE CREATED AUTHOR AUTHOR'S ORGANIZ ATION 12/26/2022 [facility] DATE CREATED AUTHOR AUTHOR'S ORGANIZ ATION 04/16/2023 [facility] DATE CREATED AUTHOR AUTHOR'S ORGANIZ ATION 11/14/2023 [facility] DATE CREATED AUTHOR AUTHOR'S ORGANIZ ATION 11/23/2023 [facility] EPIC REASON FOR VISIT (unrecogniz ed section and content) Reason Comments Patient Question Recheck Left Knee Source Comments (unrecognize d section and content) In the event this informatio n is protected by the Federal Confidentiality of Alcohol and Drug Abuse Patient Records regulations: The Federal rules restrict any use of the information to criminally investigate or prosecute any alcohol or drug abuse patient.[facility] Care Teams (unrecognized sec tion and content) Plastics Engineer Relationship Specialty Start Date End Date Chacha Ledbetter MD PCP - General Family Medicine 08/30/19 Plastics Engineer Relationship Specialty Start Date End Date Chacha Ledbetter MD [address] [place] [id number] PCP - General Family Medicine 10/21/22 Plastics Engineer Relationship Specialty Start Date End Date Chacha Ledbetter MD [address] [place] [phone] PCP - General Family Medicine 04/27/23 FOR RECORDS PERTAINING TO PATIENTS WHO ARE OR HAVE BEEN ENROLLED IN A CHEMICAL DEPENDENCY/SUBSTANCEABUSE PROGRAM, SOME INFORMATION MAY BE OMITTED. This clinical summary was aggregated from multiple sources. Caution should be exercised in using it in the provision of clinical care. This summary normalizes information from multiple sources, and as a consequence, information in this document may materially change the coding, format and clinical context of patient data. In addition, data may be omitted in some cases. CLINICAL DECISIONS SHOULD BE BASED ON THE PRIMARY CLINICAL RECORDS. [facility]. provides no warranty or guarantee of the accuracy or completeness of information in this document.
== END 2023-12-31 10:55 | disposition home or self-care (01) ==
LOC: MAMMO 10:54
PROVIDERS: PCP Family Medicine; Visit Provider Family Medicine
DX: Z12.31 Encounter for screening mammogram for malignant neoplasm of breast (principal); Z80.3 Family history of malignant neoplasm of breast
CPT/HCPCS: 77063; 77067

== ENCOUNTER 2024-08-01 15:18 | Outpatient (OUT) | payer OTHER, SELFPAY ==
--- OUTSIDE RECORDS SUMMARY | 2024-05-25 16:23 | XMS_ITS | CCD ---
Author Organization [place] [facility] Team Providers Care Slag Mixer Name Role Phone PHYSICIAN, DEFAULT Unavailable Unavailable PHYSICIAN, DEFAULT Unavailable Unavailable JUICE NAPOLES Unavailable Unavailable Heath Silva Unavailable CRISTINA, DR BURNHAM Primary Care Unavailable ENGELER, DR NORA Zamorano Admitting Unavailable ENGELER, DR NORA Zamorano Consulting Unavailable ENGELER, DR NORA Zamorano Attending Unavailable ZIEBER, DR JOSE M Farrar Consulting Unavailable CRISTINA, DR BURNHAM Primary Care Unavailable MISC, DR BOWERS Attending Unavailable MISC, DR BOWERS Admitting Unavailable MISC, DR BOWERS Consulting Unavailable CRISTINA, DR BURNHAM Primary Care Unavailable HOY, DR BURNHAM Consulting Unavailable ANNEM-ARIEY, DR BURNHAM Attending Unavailable HOY, DR BURNHAM Admitting Unavailable HOY, DR BURNHAM Consulting Unavailable CRISTINA, DR BURNHAM Attending Unavailable HOY, DR BURNHAM Admitting Unavailable HOY, DR BURNHAM Primary Care Unavailable ENGELER, DR NORA Zamorano Admitting Unavailable ENGELER, DR NORA Zamorano Attending Unavailable WEST, DR JETT Burns Consulting Unavailable CRISTINA, DR BURNHAM Primary Care Unavailable ENGELER, DR NORA Zamorano Consulting Unavailable Chacha Ledbetter MD Primary Care Provider FAHEEM ROCK Referring Unavailable CHACHA LEDBETTER Primary Care Unavailable Chacha Ledbetter MD Primary Care Provider [phone] Chacha Ledbetter MD Primary Care Provider NADIA SOTOMAYOR Attending Unavailable CHACHA LEDBETTER Referring Unavailable CHACHA LEDBETTER Primary Care Unavailable CHACHA LEDBETTER Referring Unavailable CHACHA LEDBETTER Primary Care Unavailable JOSUE HINOJOSA Attending Unavailable JOSUE HINOJOSA Attending Unavailable JOSUE HINOJOSA Attending Unavailable JOSUE HINOJOSA Attending Unavailable JOSUE HINOJOSA Attending Unavailable Medications Current Medications Medication Drug Class(es) Dates Sig (Normalized) Sig (Original) acetaminophen 325 mg / HYDROcodone bitartrate 5 mg oral tablet (6 sources) Opioid Agonist Start: 07-08-2021 take 1 tablet by mouth every four hours as needed for pain HYDROcodone-Acetam inophen 5-325 MG 1 tablet as needed for pain Orally up to every 4 hrs for 3 days Jun, Active [id number] 200 actuat albuterol 0.09 mg/actuat metered dose [...] complication, without long-term current use of insulin ([facility]) Take 1 tablet (500 mg total) by [...] sources) Angiotensin Converting Enzyme Inhibitor Start: 04-11-20 17 take 1 tablet by mouth once daily [...] Complications of surgical procedures or medical care (4 sources) Postprocedural hypothyroidism; 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] Onset: 10-08-2018 11-15-2023 Chronic Diabetes mellitus without complication (4 sources) Type 2 diabetes mellitus without complications; [...] Test Name Value Interpretation Reference Range Facility THYROID PROFILEon 03-03-2024 Free T4 [Mass/Vol] 1.40 ng/dL Normal 0.61-1.60 [facility] Comment on above: Performed By: #### T HYR #### [facility] ([id number]) [address] [place] [address], [address] [address] TSH 0.10 uIU/mL Low 0.49-4.67 [facility] [place] Comment on above: Performed By: #### T HYR #### [facility] ([id number]) [address] [place] [address], [address] [place] [address] MICROALBUMIN - ALBUMIN:CREAT ININE URINE RATIOon 11-12-2023 ALB/CREAT RATIO 13.5 mg/g creat Normal 0.0-30.0 [facility] [place] Comment on above: Performed By: #### M ALBU #### [facility] ([id number]) [address] [place] [address], [address] [place] [address] Albumin DL <= 20 mg/L (U) [Mass/Vol] 0.7 mg/dL Normal 0.0-1.9 [facility] Comment on above: Performed By: #### M ALBU #### [facility] ([id number]) [address], [address] [place] [address] URINE CREAT 51.79 mg/dL Normal [facility] Comment on above: Performed By: #### M ALBU #### [facility] ([id number]) [address], [address] [place] [address] THYROID PROFILEon 11-12-2023 Free T4 [Mass/Vol] 1.37 ng/dL Normal 0.61-1.60 [facility] Comment on above: Performed By: #### T HYR #### [facility] ([id number]) [address] [place] [address] TSH 0.06 uIU/mL Low 0.49-4.67 [facility] Comment on above: Performed By: #### T HYR #### [facility] ([id number]) [address] [place] [address] CNPNon 04-06-2023 YVETTEN Telephone (BHANUA) RICHELLE PELAEZ ([id number]) 1965 F Date Time Provider Department 04/06/23 Adam LINDO During your visit today, we recorded the following information about you: Courtney KRISHNA Garcia 04/06/2023 8:48 AM Jagdish Newman called wondering if she needs to continue [...] Fully Assessed Reason for Visit: Patient Question [7665] Prescriptions as of 04/06/2023 - amLODIPine (NORVASC) [...] Encounter Status:Closed by COURTNEY GARCIA on 04/06/23 [facility] MG MAMM DIAGNOSTIC 3D MARGARITA CA Don 12-21-2022 MG MAMM DIAGNOSTIC 3D MARGARITA CAD Patient: RICHELLE PELAEZ Exam Date: 12/21/2022 : 1965 Gender:F Ordering : DR NORA LINDO M.D. Admission #: [id number] Family : Order #: [id number] CLICK HERE TO VIEW EXAM RADIOLOGY REPORT [...] [facility] Covid-19 PCR (CVDTB)on 09-09 SARS-CoV-2 (COVID-19) RNA ERIC+probe Ql (Unsp [...] for this test is supported by the Inspector Conveyor Line of Health and Human Service's declaration that [...] longer be used). Performed By: #### C VDTB #### [facility] [address] [place] [address] Dr. Lisbeth Ramirez INFLUENZA A AND B AGon 09-28 INFLUANEGH SEE BELOW Normal [facility] Comment on above: Result Comment: Nega tive for Flu A protein angiten. Infection due to Flu A cannot be ruled out. Flu A angiten in the sample may be below the detection limit of the test. Performed By: #### I NFLUAB #### [facility] [address] [place] [address] Dr. Lisbeth Ramirez INFLUBNEG SEE BELOW Normal [facility] Comment on above: Result Comment: Nega tive for Flu B protein antigen. Infection due to Flu B cannot be ruled out. Flu B antigen in the sample may be below the detection limit of the test. Performed By: #### I NFLUAB #### [facility] [address] [place] [address] Dr. Lisbeth Ramirez INFLUENZA A AG Negative Normal NEGATIVE SEE COMMENT [facility] Comment on above: Performed By: #### I NFLUAB #### [facility] [address] [place] [address] Dr. Lisbeth Ramirez INFLUENZA B AG Negative Normal NEGATIVE SEE COMMENT [facility] Comment on above: Performed By: #### I NFLUAB #### [facility] [address] [place] [address] Dr. Lisbeth Ramirez INTERNAL CONTROLS Within Normal Limits Normal Wi thin Normal Limits [facility] Comment on above: Performed By: #### I NFLUAB #### [facility] [address] [place] [address] Dr. Lisbeth Ramirez INSULINon 08-29-2022 Insulin 30.4 uIU/mL Critically high 2.6-24.9 [facility] Comment on above: Performed By: #### I NSULIN #### [facility] [address] [place] [address] Dr. Lisbeth Ramirez CBC AUTO DIFFon 08-28-2022 BASO # 0.1 103/ul Normal 0.0-0.1 [facility] Comment on above: Performed By: #### C BC #### [facility] [address] [place] [address] Dr. Lisbeth Ramirez Basophils/100 WBC (Bld) 0.8 % Normal 0.2-2.0 [facility] Comment on above: Performed By: #### C BC #### [facility] [address] [place] [address] Dr. Lisbeth Ramirez EO # 0.2 103/ul Normal 0.0-0.7 [facility] Comment on above: Performed By: #### C BC #### [facility] [address] [place] [address] Dr. Lisbeth Ramirez Eosinophils/100 WBC (Bld) 2.5 % Normal 0.9-7.0 [facility] Comment on above: Performed By: #### C BC #### [facility] [address] [place] [address] Dr. Lisbeth Ramirez Erythrocyte distribution width (RBC) [Ratio] 13.0 % Normal 11.0-15.0 [facility] Comment on above: Performed By: #### C BC #### [facility] [address] [place] [address] Dr. Lisbeth Ramirez Hematocrit (Bld) [Volume fraction] 42.1 % Normal 36.0-48.0 [facility] Comment on above: Performed By: #### C BC #### [facility] [address] [place] [address] Dr. Lisbeth Ramirez Hemoglobin (Bld) [Mass/Vol] 14.0 g/dL Normal 12.0-16.0 [facility] Comment on above: Performed By: #### C BC #### [facility] [address] [place] [address] Dr. Lisbeth Ramirez IG # 0.02 10e3/ul Normal 0.00-0.03 [facility] Comment on above: Performed By: #### C BC #### [facility] [address] [place] [address] Dr. Lisbeth Ramirez IG % 0.2 % Normal 0.0-0.5 [facility] Comment on above: Performed By: #### C BC #### [facility] [address] [place] [address] Dr. Lisbeth Ramirez LYMPH # 1.8 103/ul Normal 1.2-3.8 [facility] Comment on above: Performed By: #### C BC #### [facility] [address] [place] [address] Dr. Lisbeth Ramirez Lymphocytes/100 WBC (Bld) 20.9 % Normal 20.5-60.0 [facility] Comment on above: Performed By: #### C BC #### [facility] [address] [place] [address] Dr. Lisbeth Ramirez MANUAL DIFF REQ NO Normal [facility] Comment on above: Performed By: #### C BC #### [facility] [address] [place] [address] Dr. Lisbeth Ramirez MCH (RBC) [Entitic mass] 28.7 pg Normal 26.7-34.0 [facility] Comment on above: Performed By: #### C BC #### [facility] [address] [place] [address] Dr. Lisbeth Ramirez MCHC (RBC) [Mass/Vol] 33.3 g/dL Normal 29.9-35.2 [facility] Comment on above: Performed By: #### C BC #### [facility] [address] [place] [address] Dr. Lisbeth Ramirez MCV (RBC) [Entitic vol] 86.4 fL Normal 81.0-99.0 [facility] Comment on above: Performed By: #### C BC #### [facility] [address] [place] [address] Dr. Lisbeth Ramirez MONO # 0.8 103/ul Normal 0.3-0.8 [facility] Comment on above: Performed By: #### C BC #### [facility] [address] [place] [address] Dr. Lisbeth Ramirez Monocytes/100 WBC (Bld) 8.8 % Normal 1.7-12.0 [facility] Comment on above: Performed By: #### C BC #### [facility] [address] [place] [address] Dr. Lisbeth Ramirez NEUT # 5.8 103/ul Normal 1.4-6.5 [facility] Comment on above: Performed By: #### C BC #### [facility] [address] [address] [address] Lisbeth Ramirez Neutrophils/100 WBC (Bld) 66.8 % Normal 43.0-75.0 [facility] Comment on above: Performed By: #### C BC #### [facility] [address] [address] [address] Lisbeth Ramirez Platelet mean volume (Bld) [Entitic vol] 10.5 fL Normal 9.5-13.5 [facility] Comment on above: Performed By: #### C BC #### [facility] [address] [place] [address] Dr. Lisbeth Ramirez PLT 222 103/ul Normal 150-450 [facility] Comment on above: Performed By: #### C BC #### [facility] [address] [place] [address] Dr. Lisbeth Ramirez RBC 4.87 106/ul Normal 4.20-5.40 [facility] Comment on above: Performed By: #### C BC #### [facility] [address] [place] [address] Dr. Lisbeth Ramirez WBC 8.7 103/ul Normal 4.0-11.0 [facility] Comment on above: Performed By: #### C BC #### [facility] [address] [place] [address] Dr. Lisbeth Ramirez FREE THYROXINE INDEX T7on FTI 3.80 Normal 1.30-4.50 [facility] Comment on above: Performed By: #### T SH, CMP, LIPID, T7 ####[facility] [address] [address]Dr. Lisbeth Ramirez T3U 33.0 % Normal 30.0-39.0 [facility] Comment on above: Performed By: #### T SH, CMP, LIPID, T7 ####[facility] [address] [address]Dr. Lisbeth Ramirez T4 [Mass/Vol] 11.50 ug/dL Normal 4.80-13.90 [facility] Comment on above: Performed By: #### T SH, CMP, LIPID, T7 ####[facility] [address] [place], [place] [address]Dr. Lisbeth Ramirez GLYCOHEMOGLOBIN A1Con 2021 ADA RECOMMENDATION SEE BELOW Normal [facility] Comment on above: Result Comment: ADA RECOMMENDED LIMIT 4.0 - 6.0 ADA THERAPEUTIC TARGET < 7.0 ACTION SUGGESTED > 7.0 Performed By: #### A 1C #### [facility] [address] [address] [address] Lisbeth Ramirez Glucose [Mass/Vol] 105 mg/dL Normal [facility] Comment on above: Performed By: #### A 1C #### [facility] [address] [address] [address] Lisbeth Ramirez HbA1c (Bld) [Mass fraction] 5.3 % Normal 4.5-6.2 [facility] Comment on above: Performed By: #### A 1C #### [facility] [address] [address] [address] Lisbeth Ramirez IRONon 08-28-2022 Iron [Mass/Vol] 54.0 ug/dL Normal 50.0-170.0 [facility] Comment on above: Performed By: #### I DAGO #### [facility] [address] [address] [address] Lisbeth Ramirez LIPID PROFILEon 08-28-2022 CHOL-HDL RATIO NORM SEE BELOW Normal [facility] Comment on above: Result Comment: 3.3 - 4.4 LOW RISK 4.4 - 7.1 AVERAGE RISK 7.1 - 11.0 MODERATE RISK >11.0 HIGH RISK Performed By: #### T SH, CMP, LIPID, T7 ####[facility] [address] [place], [place] [address]Dr. Lisbeth Ramirez Cholesterol [Mass/Vol] 187 mg/dL Normal <=200 [facility] Comment on above: Performed By: #### T SH, CMP, LIPID, T7 ####[facility] [address] [place], [place] [address]Cr. Lisbeth Ramirez Cholesterol in HDL [Mass/Vol] 67 mg/dL Critically high 40-60 [facility] Comment on above: Performed By: #### T SH, CMP, LIPID, T7 ####[facility] [address] [place], [place] [address]Kj. Lisbeth Ramirez Cholesterol in LDL [Mass/Vol] 95.8 mg/dL Normal [facility] Comment on above: Performed By: #### T SH, CMP, LIPID, T7 ####[facility] [address] [place], [place] [address]Mc. Lisbeth Ramirez Cholesterol.total/Cho lesterol in HDL [Mass ratio] 2.8 {ratio} Normal [facility] Comment on above: Performed By: #### T SH, CMP, LIPID, T7 ####[facility] [address] [id number]. Lisbeth Ramirez HDL NORMAL > or = 60 mg/dl - LOW CARDIOVASCULAR RISK <40 mg/dl - HIGH CARDIOVASCULAR RISK Normal [facility] Comment on above: Performed By: #### T SH, CMP, LIPID, T7 ####[facility] [address] [phone]. Lisbeth Ramirez LDL CALC NORMAL SEE BELOW Normal [facility] Comment on above: Result Comment: <100 mg/dl OPTIMAL 100 - 129 mg/dl NEAR OR ABOVE OPTIMAL 130 - 159 mg/dl BORDERLINE HIGH 160 - 189 mg/dl HIGH >190 mg/dl VERY HIGH Performed By: #### T SH, CMP, LIPID, T7 ####[facility] [address] [place] [id number]. Lisbeth Ramirez Triglyceride [Mass/Vol] 121 mg/dL Normal <=150 [facility] Comment on above: Performed By: #### T SH, CMP, LIPID, T7 ####[facility] [address] [place] [phone]. Lisbeth Ramirez VLDL CALC 24.2 mg/dL Normal [facility] Comment on above: Performed By: #### T SH, CMP, LIPID, T7 ####[facility] [address] [address]Dr. Lisbeth Ramirez PROF 14(COMP METB)on 022 Albumin [Mass/Vol] 4.1 g/dL Normal 3.4-5.0 [facility] Comment on above: Performed By: #### T SH, CMP, LIPID, T7 ####[facility] [address] [address]Dr. Lisbeth Ramirez Albumin/Globulin [Mass ratio] 0.9 {ratio} Normal [facility] Comment on above: Performed By: #### T SH, CMP, LIPID, T7 ####[facility] [address] [address]Dr. Lisbeth Ramirez ALP [Catalytic activity/Vol] 94 U/L Normal 46-116 [facility] Comment on above: Performed By: #### T SH, CMP, LIPID, T7 ####[facility] [address] [place], [place] [address]Dr. Lisbeth Ramirez ALT [Catalytic activity/Vol] 13 U/L Critically low 14-59 [facility] Comment on above: Performed By: #### T SH, CMP, LIPID, T7 ####[facility] [address] [place], [place] [address]Dr. Lisbeth Ramirez Anion gap [Moles/Vol] 11.4 mmol/L Normal [facility] Comment on above: Performed By: #### T SH, CMP, LIPID, T7 ####[facility] [address] [address]Dr. Lisbeth Ramirez AST [Catalytic activity/Vol] 23 U/L Normal 15-37 [facility] Comment on above: Performed By: #### T SH, CMP, LIPID, T7 ####[facility] [address] [address]Dr. Lisbeth Ramirez Bilirubin [Mass/Vol] 0.7 mg/dL Normal 0.2-1.0 [facility] Comment on above: Performed By: #### T SH, CMP, LIPID, T7 ####[facility] [address] [address]Dr. Lisbeth Ramirez Calcium [Mass/Vol] 9.5 mg/dL Normal 8.5-10.1 [facility] Comment on above: Performed By: #### T SH, CMP, LIPID, T7 ####[facility] [address] [address]Dr. Lisbeth Ramirez Chloride [Moles/Vol] 104 mmol/L Normal 98-107 [facility] Comment on above: Performed By: #### T SH, CMP, LIPID, T7 ####[facility] [address] [address]Dr. Lisbeth Ramirez CO2 [Moles/Vol] 25.9 mmol/L Normal 21.0-32.0 [facility] Comment on above: Performed By: #### T SH, CMP, LIPID, T7 ####[facility] [address] [address]Dr. Lisbeth Ramirez Creatinine [Mass/Vol] 0.67 mg/dL Normal 0.55-1.02 [facility] Comment on above: Performed By: #### T SH, CMP, LIPID, T7 ####[facility] [address] [address]Dr. Lisbeth Ramirez EGFR-AF SOUTH KOREAN >60 Normal >=60 [facility] Comment on above: Performed By: #### T SH, CMP, LIPID, T7 ####[facility] [address] [address]Dr. Lisbeth Ramirez EGFR-NON AF [place]OUTH [place]OREAN >60 Normal >=60 [facility] Comment on above: Performed By: #### T SH, CMP, LIPID, T7 ####[facility] [address] [address]Dr. Lisbeth Ramirez Globulin (S) [Mass/Vol] 4.2 g/dL Normal [facility] Comment on above: Performed By: #### T SH, CMP, LIPID, T7 ####[facility] [address] [address]Dr. Lisbeth Ramirez Glucose [Mass/Vol] 103 mg/dL Normal 74-106 [facility] Comment on above: Performed By: #### T SH, CMP, LIPID, T7 ####[facility] [address] [address]Dr. Lisbeth Ramirez Potassium [Moles/Vol] 3.6 mmol/L Normal 3.5-5.1 [facility] Comment on above: Performed By: #### T SH, CMP, LIPID, T7 ####[facility] [address] [address]Dr. Lisbeth Ramirez Protein [Mass/Vol] 8.3 g/dL Critically high 6.4-8.2 [facility] Comment on above: Performed By: #### T SH, CMP, LIPID, T7 ####[facility] [address] [address]Dr. Lisbeth Ramirez Sodium [Moles/Vol] 138 mmol/L Normal 136-145 [facility] Comment on above: Performed By: #### T SH, CMP, LIPID, T7 ####[facility] [address] [address]Dr. Lisbeth Ramirez Urea nitrogen [Mass/Vol] 12.0 mg/dL Normal 7.0-18.0 [facility] Comment on above: Performed By: #### T SH, CMP, LIPID, T7 ####[facility] [address] [address]Dr. Lisbeth Ramirez Urea nitrogen/Creatinine [Mass ratio] 17.9 mg/mg Normal [facility] Comment on above: Performed By: #### T SH, CMP, LIPID, T7 ####[facility] [address] [address]Dr. Lisbeth Ramirez TSHon 08-28-2022 TSH 0.572 uIU/mL Normal 0.358-3.740 [facility] Comment on above: Performed By: #### T SH, CMP, LIPID, T7 ####[facility] [address] [address]Dr. Lisbeth Ramirez UA (CLEAN/CATCH) BELT MAKER/MICRO I F IND.on 06-10-2022 Bilirubin Ql (U) Negative Normal NEGATIVE [facility] Comment on above: Performed By: #### U ACSIND, UMICRO #### [facility] [address] [address] [address] Lisbeth Ramirez Clarity (U) CLEAR Normal CLEAR [facility] Comment on above: Performed By: #### U ACSIND, UMICRO #### [facility] [address] [address] [address] Lisbeth Ramirez Color (U) YELLOW Normal YELLOW [facility] Comment on above: Performed By: #### U ACSIND, UMICRO #### [facility] [facility] [address] [address] [address] Lisbeth Ramirez Glucose Ql (U) Negative Normal NEGATIVE [facility] Comment on above: Performed By: #### U ACSIND, UMICRO #### [facility] [address] [address] [address] Lisbeth Ramirez Hemoglobin Ql (U) MODERATE Abnormal NEGATIVE [facility] Comment on above: Performed By: #### U ACSIND, UMICRO #### [facility] [address] [address] [address] Lisbeth Ramirez Ketones Ql (U) Negative Normal NEGATIVE [facility] Comment on above: Performed By: #### U ACSIND, UMICRO #### [facility] [address] [place] [address] Dr. Lisbeth Ramirez LEUKOCYTES TRACE Abnormal NEGATIVE [facility] Comment on above: Performed By: #### U ACSIND, UMICRO #### [facility] [address] [address] [address] Lisbeth Ramirez Nitrite Ql (U) Negative Normal NEGATIVE [facility] Comment on above: Performed By: #### U ACSIND, UMICRO #### [facility] [address] [address] [address] Lisbeth Ramirez pH (U) 6.0 [pH] Normal 5-9 [facility] Comment on above: Performed By: #### U ACSIND, UMICRO #### [facility] [address] [address] [address] Lisbeth Ramirez SPEC GRAVITY 1.025 Normal 1.005-<=1.025 [facility] Comment on above: Performed By: #### U ACSIND, UMICRO #### [facility] [address] [address] [address] Lisbeth Ramirez UA PROTEIN Negative Normal NEGATIVE/ TRACE The [facility] Comment on above: Performed By: #### U ACSIND, UMICRO #### [facility] [address] [address] [address] Lisbeth Ramirez UR MICRO IND INDICATED Normal The [facility] Comment on above: Performed By: #### U ACSIND, UMICRO #### [facility] [address] [address] [address] Lisbeth Ramirez Urobilinogen Qn (U) 0.2 {Ricci'U}/dL Normal 0.2 - 1. 0 The [facility] Comment on above: Performed By: #### U ACSIND, UMICRO #### [facility] [address] [place] [address] Dr. Lisbeth Ramirez URINE MICROSCOPIC ONLYon BACTERIA NONE SEEN Normal NONE SEEN The [facility] Comment on above: Performed By: #### U ACSIND, UMICRO #### [facility] [address] [address] [address] Lisbeth Ramirez Bacteria identified Cx Nom (U) NOT INDICATED Normal The [facility] Comment on above: Performed By: #### U ACSIND, UMICRO #### [facility] [address] [place] [address] Dr. Lisbeth Ramirez CAST NONE SEEN Normal NONE SEEN The [facility] Comment on above: Performed By: #### U ACSIND, UMICRO #### [facility] [address] [address] [address] Lisbeth Ramirez Crystals LM Nom (Urine sed) NONE SEEN Normal NONE SEEN The [facility] Comment on above: Performed By: #### U ACSIND, UMICRO #### [facility] [address] [address] [address] Lisbeth Ramirez Epithelial cells LM Ql (Urine sed) FEW Abnormal NONE SEEN /RARE The [facility] Comment on above: Performed By: #### U ACSIND, UMICRO #### [facility] [address] [address] [address] Lisbeth Ramirez MUCOUS NONE SEEN Normal NONE SEEN The [facility] Comment on above: Performed By: #### U SMITA JONASICRO #### [facility] [address] [address] [address] Lisbeth Ramirez RBC 2-5 Abnormal 0-2 The [facility] Comment on above: Performed By: #### U SUMI UMICRO #### [facility] [address] [address] [address] Lisbeth Ramirez WBC 0-2 Abnormal NONE SEEN The [facility] Comment on above: Performed By: #### U SUMI UMICRO #### [facility] [address] [address] [address] Lisbeth Ramirez XR knee LT 2Von 01-12-2022 XR knee LT 2V [facility] [place] [address] XRay Report Signed Patient: Richelle Pelaez MR#: [id number] : 1965 Acct:[id number] Age/Sex: 56 / F ADM Date: 01/12/22 Loc: [facility] Room: Type: [facility] Attending Dr: Heath Silva MD Ordering Provider: [...] Carney Jr., M.D.01/12/2022 4:14 PM Dictation Location: [address] [address] Transcribed By: MARI 01/12/22 1614 Dictated By: Andrea Carney Jr, MD 01/12/22 1608 Signed By: 01/12/22 1614 [facility] MAMM DIAGNOSTIC 3D MARGARITA CA Don 01-01-2022 MG MAMM DIAGNOSTIC 3D MARGARITA CAD Patient: RICHELLE PELAEZ Exam Date: 01/01/2022 : 1965 Gender:F Ordering : DR NORA LINDO M.D. Admission #: [id number] Family : Order #: [id number] CLICK HERE TO VIEW EXAM RADIOLOGY REPORT [...] [facility] Unless Otherwise Noted [address] [place] [address] / [facility] #4724/CLIA # [id number] VITAMIN B12on 05-22-2019 Cobalamin (Vitamin B12) [Mass/Vol] 713.0 pg/mL Normal 239.0-931.0 [facility] Comment on above: Performed By: #### 7 50, 800, 1000, 1005, 4500, 4520, 4575 #### [facility] Unless Otherwise Noted [address] [place] [address] / [facility] #4724/CLIA # [id number] AFINION A1Con 05-19-2019 HbA1c (Bld) [Mass fraction] 5.6 G/DL Normal 4.5-6.0 [facility] Comment on above: Performed By: #### 7 50, 800, 1000, 1005, 4500, 4520, 4575 #### [facility] Unless Otherwise Noted [address] [place] [address] / [facility] #4724/CLIA # [id number] Comprehensiveon 05-19-2019 Albumin [Mass/Vol] 4.4 g/dL Normal 3.5-5.0 Endocr [facility] Comment on above: Performed By: #### 7 50, 800, 1000, 1005, 4500, 4520, 4575 #### [facility] Unless Otherwise Noted [address] [place] [address] / [facility] #4724/CLIA # [id number] ALP [Catalytic activity/Vol] 98.0 U/L Normal 38.0-126.0 [facility] Comment on above: Performed By: #### 7 50, 800, 1000, 1005, 4500, 4520, 4575 #### [facility] Unless Otherwise Noted [address] [place] [address] / [facility] #4724/CLIA # [id number] ALT [Catalytic activity/Vol] 16.0 U/L Normal 13.0-69.0 [facility] Comment on above: Performed By: #### 7 50, 800, 1000, 1005, 4500, 4520, 4575 #### [facility] Unless Otherwise Noted [address] [place] [address] / [facility] #4724/CLIA # [id number] Anion gap [Moles/Vol] 7.0 mmol/L Low 10.0-15.0 End [facility] Comment on above: Performed By: #### 7 50, 800, 1000, 1005, 4500, 4590, 4575 #### [facility] Unless Otherwise Noted [address] [place] [address] / [facility] #4724/CLIA # [id number] AST [Catalytic activity/Vol] 39.0 U/L Normal 15.0-46.0 [facility] Comment on above: Performed By: #### 7 50, 800, 1000, 1005, 4500, 4520, 4575 #### [facility] Unless Otherwise Noted [address] [address] / [facility] #4724/CLIA # [id number] Bilirubin Ql (U) 0.40 mg/dL Normal 0.20-1.30 [facility] Comment on above: Performed By: #### 7 50, 800, 1000, 1005, 4500, 4520, 4575 #### [facility] Unless Otherwise Noted [address] [address] / [facility] #4724/CLIA # [id number] BUN/Cre Ratio 18.8 Ratio Normal 7.0-27.0 Endocrine [facility] Comment on above: Performed By: #### 7 50, 800, 1000, 1005, 4500, 4520, 4575 #### [facility] Unless Otherwise Noted [address] / [facility] #4724/CLIA # [id number] Calcium [Mass/Vol] 9.6 mg/dL Normal 8.4-10.2 [facility] Comment on above: Performed By: #### 7 50, 800, 1000, 1005, 4500, 4520, 4575 #### [facility] Unless Otherwise Noted [address] [address] / [facility] #4724/CLIA # [id number] Chloride [Moles/Vol] 107.0 mmol/L Normal 98.0-107.0 En [facility] Comment on above: Performed By: #### 7 50, 800, 1000, 1005, 4500, 4520, 4575 #### [facility] Unless Otherwise Noted [address] [address] / [facility] #4724/CLIA # [id number] CO2 [Moles/Vol] 28.0 mmol/L Normal 22.0-30.0 Endocrin [facility] Comment on above: Performed By: #### 7 50, 800, 1000, 1005, 4500, 4520, 4575 #### [facility] Unless Otherwise Noted [address] [address] / [facility] #4724/CLIA # [id number] Creatinine [Mass/Vol] 0.8 mg/dL Normal 0.5-1.0 End [facility] Comment on above: Performed By: #### 7 50, 800, 1000, 1005, 4500, 4520, 4575 #### [facility] Unless Otherwise Noted [address] [place] [address] / [facility] #4724/CLIA # [id number] GFR/1.73 sq M predicted among blacks MDRD (S/P/Bld) [Vol rate/Area] 96.9 ml/m1.73 Normal [facility] Comment on above: Performed By: #### 7 50, 800, 1000, 1005, 4500, 4520, 4575 #### [facility] Unless Otherwise Noted [address] [place] [address] / [facility] #4724/CLIA # [id number] GFR/1.73 sq M predicted among non-blacks MDRD (S/P/Bld) [Vol rate/Area] 80.1 ml/m1.73 Normal [facility] Comment on above: Performed By: #### 7 50, 800, 1000, 1005, 4500, 4520, 4575 #### [facility] Unless Otherwise Noted [address] [place] [address] / [facility] #4724/CLIA # [id number] GFR/1.73 sq M predicted among non-blacks MDRD (S/P/Bld) [Vol rate/Area] 139.1 ml/m1.73 Normal [facility] Comment on above: Performed By: #### 7 50, 800, 1000, 1005, 4500, 4520, 4575 #### Endocrine and Diabetes [facility] Unless Otherwise Noted [address] / [facility] #4724/CLIA # [id number] Glucose [Mass/Vol] 91.0 mg/dL Normal 74.0-106.0 [facility] Comment on above: Performed By: #### 7 50, 800, 1000, 1005, 4500, 4520, 4575 #### [facility] Unless Otherwise Noted [address] / [facility] #4724/CLIA # [id number] Potassium [Moles/Vol] 3.9 mmol/L Normal 3.5-5.1 End [facility] Comment on above: Performed By: #### 7 50, 800, 1000, 1005, 4500, 4520, 4575 #### [facility] Unless Otherwise Noted [address] [address] / [facility] #4724/CLIA # [id number] Protein [Mass/Vol] 7.6 g/dL Normal 6.3-8.2 [facility] Comment on above: Performed By: #### 7 50, 800, 1000, 1005, 4500, 4520, 4575 #### Endocrine and [facility] Unless Otherwise Noted [address] / [facility] #4724/CLIA # [id number] Sodium [Moles/Vol] 142.0 mmol/L Normal 137.0-145.0 End [facility] Comment on above: Performed By: #### 7 50, 800, 1000, 1005, 4500, 4520, 4575 #### Endocrine and [facility] Unless Otherwise Noted [address] / [facility] #4724/CLIA # [id number] Urea nitrogen [Mass/Vol] 15.0 mg/dL Normal 7.0-17.0 [facility] Comment on above: Performed By: #### 7 50, 800, 1000, 1005, 4500, 4520, 4575 #### [facility] Unless Otherwise Noted [address] [place] [address] / [facility] #4724/CLIA # [id number] FT4on 05-19-2019 Free T4 [Mass/Vol] 1.10 ng/dL Normal 0.64-1.79 [facility] Comment on above: Performed By: #### 7 50, 800, 1000, 1005, 4500, 4520, 4575 #### [facility] Unless Otherwise Noted [address] [place] [address] / [facility] #4724/CLIA # [id number] Lipidson 05-19-2019 Cholesterol [Mass/Vol] 209.0 mg/dL High 0.0-199.0 [facility] Comment on above: Performed By: #### 7 50, 800, 1000, 1005, 4500, 4520, 4575 #### [facility] and Diabetes [facility] Unless Otherwise Noted [address] [place] [address] / [facility] #4724/CLIA # [id number] Cholesterol in HDL [Mass/Vol] 66.0 mg/dL High 40.0-60.0 [facility] Comment on above: Performed By: #### 7 50, 800, 1000, 1005, 4500, 4520, 4575 #### [facility] Unless Otherwise Noted [address] [address] / [facility] #4724/CLIA # [id number] Cholesterol in LDL [Mass/Vol] 118.4 mg/dL High 0.0-100.0 [facility] Comment on above: Performed By: #### 7 50, 800, 1000, 1005, 4500, 4520, 4575 #### [facility] Unless Otherwise Noted [address] [address] / [facility] #4724/CLIA # [id number] Cholesterol in VLDL [Mass/Vol] 24.6 mg/dL Normal [facility] Comment on above: Performed By: #### 7 50, 800, 1000, 1005, 4500, 4520, 4575 #### [facility] Unless Otherwise Noted [address] [address] / [facility] #4724/CLIA # [id number] Cholesterol.total/Cho lesterol in HDL [Mass ratio] 3.2 {ratio} Normal [facility] Comment on above: Performed By: #### 7 50, 800, 1000, 1005, 4500, 4520, 4575 #### [facility] Unless Otherwise Noted [address] [address] / [facility] #4724/CLIA # [id number] Triglyceride [Mass/Vol] 123.0 mg/dL Normal 0.0-150.0 [facility] Comment on above: Performed By: #### 7 50, 800, 1000, 1005, 4500, 4520, 4575 #### [facility] Unless Otherwise Noted [address] [address] / [facility] #4724/CLIA # [id number] NEW MICROALBUMINon 9 Creatinine (U) [Mass/Vol] 128.3 mg/dL Normal [facility] Comment on above: Performed By: #### 7 50, 800, 1000, 1005, 4500, 4520, 4575 #### [facility] Unless Otherwise Noted [address] [address] / [facility] #4724/CLIA # [id number] Microalbumin 37.0 mg/L High 0.0-30.0 [facility] Comment on above: Performed By: #### 7 50, 800, 1000, 1005, 4500, 4520, 4575 #### [facility] Unless Otherwise Noted [address] [place] [address] / [facility] #4724/CLIA # [id number] Urine A/C Ratio 28.8 mg/g Normal 0.0-30.0 [facility] Comment on above: Performed By: #### 7 50, 800, 1000, 1005, 4500, 4520, 4575 #### [facility] Unless Otherwise Noted [address] [place], [place] [address] / [facility] #4724/CLIA # [id number] Vital Signs Date Time Vital Sign Value Performing Clinician Facility 01-12-2022 16:00-0500 Body height 157.48 cm Heath Silva Other [facility] Other 01-12-2022 16:00-0500 Body mass index (BMI) [Ratio] 45.17 kg/m2 Heath Silva Other [facility] Other 01-12-2022 16:00-0500 Body weight 112.04 kg Heath Silva Other [facility] Other 11-04-2021 10:00-0500 Body height 157.48 cm Heath Olexa Other [facility] Other 11-04-2021 10:00-0500 Body mass index (BMI) [Ratio] 46.82 kg/m2 Heath Olexa Other [facility] Other 11-04-2021 10:00-0500 Body weight 116.12 kg Heath Olexa Other [facility] Other 10-14-2021 14:30-0500 Body height 157.48 cm Heath Olexa Other [facility] Other 10-14-2021 14:30-0500 Body mass index (BMI) [Ratio] 46.16 kg/m2 Heath Olexa Other [facility] Other 10-14-2021 14:30-0500 Body weight 114.49 kg Heath Olexa Other [facility] Other 05-19-2019 18:58-0400 Body weight 107.1 Kg [facility] Comment on above: Performed By: #### 750, 800, 1000, 1005, 4500, 4520, 4575 #### [facility] Unless Otherwise Noted [address] [place] [address] / [facility] #4724/IONAIA # [id number] Encounters Encounter Date Encounter Type Care Provider Facility Start: 04-27-2024 End: 04-27-2024 ambulatory JOSUE HINOJOSA Not Available Start: 03-03-2024 End: 03-04-2024 ambulatory [facility] Start: 01-26-2024 End: 01-26-2024 ambulatory JOSUE HINOJOSA Not Available Start: 11-26-2023 End: 11-26-2023 Patient encounter procedure Josue Hinojosa DPM Work Phone: [facility] Comment on above: Primary osteoarthrit is, left ankle and foot (Primary Dx); Primary osteoarthritis, right ankle and foot Start: 11-22-2023 End: 11-22-2023 ambulatory JOSUE HINOJOSA Not Available Start: 11-16-2023 End: 11-16-2023 ambulatory JOSUE HINOJOSA Not Available Start: 11-15-2023 Orders Only Faheem willson FOREST RANGER-PROCESS COORDINATOR Work Phone: [facility] Comment on above: Postablative hypothy roidism (Primary Dx) Start: 11-12-2023 End: 11-13-2023 ambulatory FAHEEM ROCK [facility] Start: 11-03-2023 End: 11-03-2023 ambulatory JOSUE HINOJOSA Not Available Start: 04-06-2023 Telephone encounter Adam Lindo MD Work Phone: Radiation Oncology Comment on above: Patient Question Start: 12-21-2022 End: 12-22-[address] NORA LINDO Facility:[facility] Start: 09-28-2022 End: 09-28-[address] CHACHA LEDBETTER Facility:[facility] Start: 09-02-2022 Encounter for genera l adult medical examination without abnormal findings DR CHACHA LEDBETTER [facility] Start: 08-28-2022 End: 08-29-[address] CHACHA LEDBETTER Facility:[facility] Start: 08-28-2022 End: 08-29-2022 Encounter for general adult medical examination without abnormal findings DR CHACHA LEDBETTER Facility:[facility] Start: 06-14-2022 Encounter for other preprocedural examination DR DOCTOR SCHULZ [facility] Start: 06-10-2022 End: 06-11-[address] CHACHA LEDBETTER Facility:[facility] Start: 06-10-2022 End: 06-11-2022 Encounter for other preprocedural examination DR CHACHA LEDBETTER Facility:[facility] Start: 02-03-2022 End: 02-03-2022 ambulatory Heath Silva Other [facility] Other Start: 02-03-2022 Office outpatient vi sit 15 minutes Heath Olexa [facility] Start: 01-12-2022 End: 01-12-2022 ambulatory Heath Olexa Other [facility] Other Start: 01-12-2022 Office outpatient vi sit 15 minutes Heath Olexa [facility] Start: 01-01-2022 End: 01-02-[address] CHACHA LEDBETTER Facility: Start: 11-04-2021 End: 11-04-2021 ambulatory Heath Olexa Other [facility] Other Start: 11-04-2021 Office outpatient vi sit 15 minutes Heath Olexa [facility] Start: 10-14-2021 End: 10-14-2021 ambulatory Heath Olexa Other [facility] Other Start: 10-14-2021 Office outpatient vi sit 15 minutes Heath Olexa [facility] Start: 09-11-2021 End: 09-11-2021 ambulatory Heath Olexa Other [facility] Other Start: 09-11-2021 Telephone encounter Heath Olexa [facility] Start: 10-24-2018 End: 10-25-2018 Patient encounter procedure DEFAULT PHYSICIAN Facility:[facility] Start: 10-04-2018 Patient encounter procedure Faheem Rock FOREST RANGER-PROCESS COORDINATOR Work Phone: [facility] Procedures Date Procedure Procedure Detail Performing Clinician Start: 11-12-2023 Microalbumin [Mass/v olume] in Urine by Test strip Faheem Rock FOREST RANGER-PROCESS COORDINATOR Work Phone: Start: 11-15-2018 Mammography Faheem chahal FOREST RANGER-PROCESS COORDINATOR Work Phone: Plan of Treatment Date Care Activity Detail Author Start: 11-12-2024 Urine screening for protein Urine Microalbumin [facility] Start: 09-03-2024 Adult BMI Screening Adult BMI Screen ing [facility] Start: 09-03-2024 Diabetic foot examination Diabetic Foot Exam [facility] Start: 09-03-2024 Tobacco Screening Tobacco Screening [facility] Start: 07-03-2024 End: 07-03-2024 Patient encounter procedure 07/03/2024 3:00 PM EDT Office Visit [facility] [address] [facility] [address] [place] [address] Chris Nielsen PA [address] [facility] [address] [place] [address] [facility] Start: 03-03-2024 End: 03-03-2024 Patient encounter procedure 03/03/2024 11:45 AM EDT Office Visit [facility] [address] [place] [address] Nadia Sotomayor MD [address] [place] [address] [facility] Start: 01-26-2024 End: 01-26-2024 Patient encounter procedure 01/26/2024 4:15 PM EDT Procedure Visit [facility] [address] [place] [address] Josue Hinojosa DPM [address] [place] [address] [facility] Start: 01-10-2024 End: 11-15-2024 Thyroid profile includes TSH FT4 Thyroid profile includes TSH FT4 Lab Routine Postablative hypothyroidism Expected: 01/10/2024 (Approximate), Expires: 11/15/2024 [facility] Work Phone: Comment on above: Expected: 01/10/2024 (Approximate), Expires: 11/15/2024 Start: 07-09-2023 COVID-19 Vaccine () COVID-19 Vaccine () [facility] Start: 07-09-2023 Influenza vaccination [facility] Start: 11-08-2022 DEPRESSION ASSESSMENT DEPRESSION ASS ESSMENT [facility] Start: 01-16-2022 COVID-19 VACCINE (4 - Booster for Pfizer series) COVID-19 VACCINE (4 - Booster for Pfizer series) [facility] Start: 10-04-2021 DIABETES SCREEN DIABETES SCREEN [facility] Start: 11-15-2019 Screening for malign ant neoplasm of breast Mammogram [facility] Start: 2017 SHINGRIX VACCINE (1 of 2) SHINGRIX VACCINE (1 of 2) [facility] Start: 2012 COLOGUARD (FIT-DNA) COLOGUARD (FIT-D NA) [facility] Start: 2012 Colonoscopy COLONOSCOPY [facility] Start: 2012 COLORECTAL CANCER SCREENING COLORECTAL CANCER SCREENING [facility] Start: [address] COLONOGRAPHY [facility] Start: 2012 FECAL OCCULT BLOOD FECAL OCCULT BLOO D [facility] Start: 2012 LIPID SCREEN LIPID SCREEN [facility] Start: 2012 SIGMOIDOSCOPY SIGMOIDOSCOPY [facility] Start: 2007 Mammography MAMMOGRAM [facility] Start: 1997 HPV TESTING HPV TESTING [facility] Start: 1997 Screening for malign ant neoplasm of cervix [facility] Start: 1988 PAP TESTING PAP TESTING [facility] Start: 1988 Screening for malign ant neoplasm of cervix Pap Smear [facility] Start: 1986 Administration of varicella zoster vaccine Zoster (Shingles) Vaccine (1 of 2) [facility] Start: 1986 DTaP,Tdap and Td Vaccines (1 - Tdap) DTaP,Tdap and Td Vaccines (1 - Tdap) [facility] Start: 1986 Urine microalbumin profile DTAP,TDAP,TD (1 - Tdap) [facility] Start: 1985 HEPATITIS C SCREENING HEPATITIS C SC REENING [facility] Start: 1985 HIV SCREENING HIV SCREENING [facility] Start: 1979 Depression Screening Depression Scre ening [facility] Start: 1967 Glaucoma screening Diabetic Op hthalmology Exam [facility] Start: 1967 HEPATITIS B (1 of 3 - 3-dose series) HEPATITIS B (1 of 3 - 3-dose series) [facility] Start: 1967 Screening for malign ant neoplasm of colon [facility] Immunizations Immunization Date Immunization Notes Care Provider Kevin hair NEGATED: Highlighted row has not occurred!10-21-2018 influenza, injectable, quadrivalent, preservative free Faheem Rock FOREST RANGER-PROCESS COORDINATOR Work Phone: [facility] Comment on above: Deferred: Patient Re fused Payers Date Payer Category Payer Private Health [facility] [id number] 2022-Present [phone] [address] [address] [place] [address] [id number] 2020 Unknown 1967 Unknown [id number] 2.16.840.1.686147.3.579. 2.647 1967 Unknown [id number] 2.16.840.1.011161.3.579. 2.593 1967 Unknown [id number] 2.16.840.1.114890.3.579. 2.593 1967 Unknown [id number] 2.16.840.1.431249.3.579. 2.593 1967 Unknown [id number] 2.16.840.1.958122.3.579. 2.593 1967 Unknown [id number] 2.16.840.1.755542.3.579. 2.593 1967 Unknown [id number] 2.16.840.1.447597.3.579. 2.1286 1967 Unknown [id number] 2.16.840.1.412110.3.579. 2.1286 1967 Unknown [id number] 2.16.840.1.086800.3.579. 2.1286 1967 Unknown [id number] 2.16.840.1.263756.3.579. 2.9 1967 Unknown [id number] 2.16.840.1.788346.3.579. 2.1258 1967 Unknown [id number] 2.16.840.1.413473.3.579. 2.1258 1967 Unknown [id number] 2.16.840.1.880391.3.579. 2.1258 1967 Unknown [id number] 2.16.840.1.116713.3.579. 2.1259 1959 Unknown [id number] 2.16.840.1.121279.19 1959 Unknown [id number] Social History Date Type Detail Facility Start: 10-07-2018 End: 11-03-2023 Sex Assigned At [facility] Other Start: 09-22-2012 End: 04-27-2023 Tobacco smoking status [facility] Never smoked tobacco [facility] Start: 09-22-2012 End: 04-27-2023 Tobacco use and exposure Smokeless tobacco non-user [facility] Start: 06-25-2022 [facility] intake [facility] Start: 1965 Sex Assigned At Not on file [facility] Start: 09-03-2023 End: 11-03-2023 Alcohol intake Current drinker of alcohol (finding) [facility] Start: 10-07-2018 End: 11-03-2023 History of Social function [facility] Frequency of Alcohol Consumption Never [facility] Start: 11-02-2018 Alcohol Comment Rarely [facility] Start: 07-05-2023 Alcohol Comment caffeine intak e: 1-2 cups per day. [facility] Medical Equipment Procedure Code Equipment Code Equipment Origin al Text Equipment Identifier Dates TEST ONCE DAILY [id number] Start: 05-23-2019 Monitor blood [facility] daily [id number] Start: 11-03-2018 Goals Date Patient Goal Desired [...] scanned Op note documented in this encounter [facility] 04-06-2023 Miscellaneous Notes Formattin g of this [...] Courtney Garcia LPN documented in this encounter [facility] 02-03-2022 Evaluation note Encounter Date Diagnosis [...] aid in pain relief at the knee. [employer] Other 03-07-2022 Evaluation note* Encounter Date Diagnosis [...] Other specified postprocedural states (ICD-10 - Z98.890) [employer] Other 12-28-2021 Evaluation note* Encounter Date Diagnosis [...] - Z98.890) Patient off work until 11/19/21 [employer] Other 12-07-2021 Evaluation note* Encounter Date Diagnosis [...] work for off work until next appointment [employer] Other Evaluation noteNo InformationNort [employer] Other Evaluation note* Diagnosis Postablative hypothyroidism- Primary Other postablative hypothyroidism [facility] Primary osteoarthritis, left ankle [...] knee arthroscopy, medial m enisecectomy. DOS 07/08/21 [employer] Other InstructionsNot on filedocumented in this encounter [facility] [employer] [facility] Summary Purpose Family History No Family History Records FoundNo Family History Records FoundNo Family History Records FoundNo Family History Records FoundNo Family History Records FoundNo Family History Records FoundNo Family History Records FoundNo Family History Records FoundNo Family History Records Found Advance Directives No Advanced Directives Records FoundLatest Code Status on File Code Status Date Activated Date Inactivated Comments Full Code 10/21/2018 5:41 AM 10/26/2018 5:32 PM Code Status History Code Status Date Activated Date Inactivated Comments Full Code 10/09/2018 5:39 PM 10/12/2018 6:49 PM Additional Source Comments INFORMATION SOURCE (unrecogn ized section and content) DATE CREATED AUTHOR 10/27/2018 [facility] DATE CREATED AUTHOR AUTHOR'S ORGANIZ ATION 05/29/2019 [facility] DATE CREATED AUTHOR AUTHOR'S ORGANIZ ATION 01/13/2022 [facility] DATE CREATED AUTHOR AUTHOR'S ORGANIZ ATION 12/26/2022 [facility] DATE CREATED AUTHOR AUTHOR'S ORGANIZ ATION 04/16/2023 [facility] DATE CREATED AUTHOR AUTHOR'S ORGANIZ ATION 11/14/2023 [facility] DATE CREATED AUTHOR AUTHOR'S ORGANIZ ATION 03/05/2024 [facility] DATE CREATED AUTHOR AUTHOR'S ORGANIZ ATION 03/05/2024 [facility] DATE CREATED AUTHOR AUTHOR'S ORGANIZ ATION 04/29/2024 [facility] EPIC REASON FOR VISIT (unrecogniz [...] or prosecute any alcohol or drug abuse patient.[facility] Care Teams (unrecognized sec tion and content) [employer]ag [employer] Relationship Specialty Start Date End Date Chacha Ledbetter MD PCP - General Family Medicine 08/30/19 [employer] Relationship Specialty Start Date End Date Chacha Ledbetter MD [address] [place] [id number] PCP - General Family Medicine 10/21/22 [employer] Relationship Specialty Start Date End Date Chacha Ledbetter MD [address] [place] [phone] PCP - General Family Medicine 04/27/23 FOR [...] BE BASED ON THE PRIMARY CLINICAL RECORDS. [employer] [facility]. provides no warranty or guarantee of the accuracy or completeness of information in this document.
--- OUTSIDE RECORDS SUMMARY | 2024-08-01 15:29 | XMS_ITS | CCD ---
Author Organization [facility] Team Providers Care Blueberry Grower Name Role Phone PHYSICIAN, DEFAULT Unavailable Unavailable [...] Care Unavailable HOY, DR BURNHAM Consulting Unavailable CRISTINA, DR BURNHAM Attending Unavailable HOY, DR BURNHAM Admitting Unavailable HOY, DR BURNHAM Consulting Unavailable HOY, DR BURNHAM Attending Unavailable HOY, DR BURNHAM Admitting Unavailable HOY, DR BURNHAM Primary Care Unavailable ENGELER, DR NORA Zamorano Admitting Unavailable ENGELER, DR NORA Zamorano Attending Unavailable SHAWANDA, DR JETT Burns Consulting Unavailable CRISTINA, DR BURNHAM Primary Care Unavailable ENGELER, DR NORA Zamorano Consulting Unavailable Chacha Ledbetter MD Primary Care Provider [phone] [place]EM R[place] Referring Unavailable CHACHA LEDBETTER Primary Care Unavailable Chacha Ledbetter MD Primary Care Provider [phone] Chacha Ledbetter MD Primary Care Provider [phone] NADIA SOTOMAYOR Attending Unavailable CHACHA LEDBETTER Referring Unavailable CHACHA LEDBETTER Primary Care Unavailable CHACHA LEDBETTER Referring Unavailable CHACHA LEDBETTRE Primary Care Unavailable JOSUE HINOJOSA Attending Unavailable JOSUE HINOJOSA Attending Unavailable JOSUE HINOJOSA Attending Unavailable JOSUE HINOJOSA Attending Unavailable JOSUE HINOJOSA Attending Unavailable DIEGO DUNNE Attending Unavailable JOSUE HINOJOSA Attending Unavailable Medications [...] 4 hrs for 3 days Jun, Active [id number] actuat albuterol 0.09 mg/actuat metered dose [...] complication, without long-term current use of insulin ([facility]) Take 1 tablet (500 mg total) by mouth daily with dinner. 90 tablet 3 09/03/2023 Active Start: 10-21-2022 take 1 tablet by marcelina th at mealtime metFORMIN (Glucophage) 500 MG tablet Take 500 mg by mouth in the evening. Take with meals. 0 10/21/2022 Active Start: 03-14-2017 take 2 tablets by mo [facility] twice daily at mealtime metFORMIN ER (GLUCOPHAGE [...] Free T4 [Mass/Vol] 1.40 ng/dL Normal 0.61-1.60 [facility] Comment on above: Performed By: #### T HYR #### [facility] ([id number]) [address] [facility], [address] [place] [address] TSH 0.10 uIU/mL Low 0.49-4.67 [facility] Comment on above: Performed By: #### T HYR #### [facility] ([id number]) [address] [facility], [address] [place] [address] MICROALBUMIN - ALBUMIN:CREAT ININE URINE RATIOon 11-12-2023 ALB/CREAT RATIO 13.5 mg/g creat Normal 0.0-30.0 [facility] Comment on above: Performed By: #### M ALBU #### [facility] ([id number]) [address] [facility], [address] [place] [address] Albumin DL <= 20 mg/L (U) [Mass/Vol] 0.7 mg/dL Normal 0.0-1.9 [facility] Comment on above: Performed By: #### M ALBU #### [facility] ([id number]) [address] [place] [address], [address] [place] [address] URINE CREAT 51.79 mg/dL Normal [facility] Comment on above: Performed By: #### M ALBU #### [facility] ([id number]) [address] [place] [address], [address] [place] [address] THYROID PROFILEon 11-12-2023 Free T4 [Mass/Vol] 1.37 ng/dL Normal 0.61-1.60 [facility] Comment on above: Performed By: #### T HYR #### [facility] ([id number]) [address] [place] [address] TSH 0.06 uIU/mL Low 0.49-4.67 [facility] Comment on above: Performed By: #### T HYR #### [facility] ([id number]) [address] [place] [address] [facility] 04-06-2023 YVETTEN Telephone (BHANUA) RICHELLE PELAEZ ([id number]) 1965 F Date Time Provider Department 04/06/23 Adam LINDO During your visit today, we recorded the following information about you: Courtneythom Garcia LPN 04/06/2023 8:48 AM Jagdish Newman called wondering [...] Fully Assessed Reason for Visit: Patient Question [5314] Prescriptions as of 04/06/2023 - amLODIPine (NORVASC) [...] Status:Closed by COURTNEY GARCIA on 04/06/23 Normal [facility] MG MAMM DIAGNOSTIC 3D MARGARITA CA Don 12-21-2022 MG MAMM DIAGNOSTIC 3D MARGARITA CAD Patient: RICHELLE PELAEZ Exam Date: 12/21/2022 : 1965 Gender:F Ordering : DR NORA LINDO M.D. Admission #: [id number] Family : Order #: [id number] CLICK HERE TO VIEW EXAM RADIOLOGY REPORT [...] breast cancer at age 75. LOCATION: [facility] BREAST COMPOSITION: Almost entirely fatty. FINDINGS: DIAGNOSTIC [...] MD on 12/21/2022 at 13:48 Normal [facility] Covid-19 PCR (CVDTB)on 09-09 SARS-CoV-2 (COVID-19) RNA ERIC+probe Ql (Unsp spec) Not detected Normal NOT DETECTED [facility] Comment on above: Result Comment: When diagnostic [...] for this test is supported by the [place] Inspector of Health and Human Service's declaration that [...] used). Performed By: #### C VDTBH #### [facility] [address] [place] [address] Dr. Lisbeth Ramirez INFLUENZA A AND B AGon 09-28 INFLUANE SEE BELOW Normal [facility] Comment on above: Result Comment: Nega tive for Flu A protein angiten. Infection due to Flu A cannot be ruled out. Flu A angiten in the sample may be below the detection limit of the test. Performed By: #### I NFLUAB #### [facility] [address] [place] [address] Dr. Lisbeth Ramirez INFLUBNEG SEE BELOW Normal [facility] Comment on above: Result Comment: Nega tive for Flu B protein antigen. Infection due to Flu B cannot be ruled out. Flu B antigen in the sample may be below the detection limit of the test. Performed By: #### I NFLUAB #### [facility] [address] [place] [address] Dr. iLsbeth Ramirez INFLUENZA A AG Negative Normal NEGATIVE SEE COMMENT [facility] Comment on above: Performed By: #### I NFLUAB #### [facility] [address] [place] [address] Dr. Lisbeth Ramirez INFLUENZA B AG Negative Normal NEGATIVE SEE COMMENT [facility] Comment on above: Performed By: #### I NFLUAB #### [facility] [address] [place] [address] Dr. Lisbeth Ramirez INTERNAL CONTROLS Within Normal Limits Normal Wi thin Normal Limits [facility] Comment on above: Performed By: #### I NFLUAB #### [facility] [address] [place] [address] Dr. Lisbeth Ramirez INSULINon 08-29-2022 Insulin 30.4 uIU/mL Critically high 2.6-24.9 [facility] Comment on above: Performed By: #### I NSULIN #### [facility] [address] [place] [address] Dr. Lisbeth Ramirez CBC AUTO DIFFon 08-28-2022 BASO # 0.1 103/ul Normal 0.0-0.1 [facility] Comment on above: Performed By: #### C BC #### [facility] [address] [place] [address] Dr. Lisbeth Ramirez Basophils/100 WBC (Bld) 0.8 % Normal 0.2-2.0 [facility] Comment on above: Performed By: #### C BC #### [facility] [address] [place] [address] Dr. Lisbeth Ramirez EO # 0.2 103/ul Normal 0.0-0.7 [facility] Comment on above: Performed By: #### C BC #### [facility] [address] [place] [address] Dr. Lisbeth Ramirez Eosinophils/100 WBC (Bld) 2.5 % Normal 0.9-7.0 [facility] Comment on above: Performed By: #### C BC #### [facility] [address] [place] [address] Dr. Lisbeth Ramirze Erythrocyte distribution width (RBC) [Ratio] 13.0 % Normal 11.0-15.0 [facility] Comment on above: Performed By: #### C BC #### [facility] [address] [place] [address] Dr. Lisbeth Ramirez Hematocrit (Bld) [Volume fraction] 42.1 % Normal 36.0-48.0 [facility] Comment on above: Performed By: #### C BC #### [facility] [address] [place] [address] Dr. Lisbeth Ramirez Hemoglobin (Bld) [Mass/Vol] 14.0 g/dL Normal 12.0-16.0 [facility] Comment on above: Performed By: #### C BC #### [facility] [address] [place] [address] Dr. Lisbeth Ramirez IG # 0.02 10e3/ul Normal 0.00-0.03 [facility] Comment on above: Performed By: #### C BC #### [facility] [address] [place] [address] Dr. Lisbeth Ramirez IG % 0.2 % Normal 0.0-0.5 [facility] Comment on above: Performed By: #### C BC #### [facility] [address] [address] [address] Lisbeth Ramirez LYMPH # 1.8 103/ul Normal 1.2-3.8 [facility] Comment on above: Performed By: #### C BC #### [facility] [address] [address] [address] Lisbeth Ramirez Lymphocytes/100 WBC (Bld) 20.9 % Normal 20.5-60.0 [facility] Comment on above: Performed By: #### C BC #### [facility] [address] [place] [address] Dr. Lisbeth Ramirez MANUAL DIFF REQ NO Normal [facility] Comment on above: Performed By: #### C BC #### [facility] [address] [place] [address] Dr. Lisbeth Ramirez MCH (RBC) [Entitic mass] 28.7 pg Normal 26.7-34.0 [facility] Comment on above: Performed By: #### C BC #### [facility] [address] [place] [address] Dr. Lisbeth Ramirez MCHC (RBC) [Mass/Vol] 33.3 g/dL Normal 29.9-35.2 [facility] Comment on above: Performed By: #### C BC #### [facility] [address] [place] [address] Dr. Lisbeth Ramirez MCV (RBC) [Entitic vol] 86.4 fL Normal 81.0-99.0 [facility] Comment on above: Performed By: #### C BC #### [facility] [address] [place] [address] Dr. Lisbeth Ramirez MONO # 0.8 103/ul Normal 0.3-0.8 [facility] Comment on above: Performed By: #### C BC #### [facility] [address] [place] [address] Dr. Lisbeth Ramirez Monocytes/100 WBC (Bld) 8.8 % Normal 1.7-12.0 [facility] Comment on above: Performed By: #### C BC #### [facility] [address] [address] [address] Lisbeth Ramirez NEUT # 5.8 103/ul Normal 1.4-6.5 [facility] Comment on above: Performed By: #### C BC #### [facility] [address] [address] [address] Lisbeth Ramirez Neutrophils/100 WBC (Bld) 66.8 % Normal 43.0-75.0 [facility] Comment on above: Performed By: #### C BC #### [facility] [address] [address] [address] Lisbeth Ramirez Platelet mean volume (Bld) [Entitic vol] 10.5 fL Normal 9.5-13.5 [facility] Comment on above: Performed By: #### C BC #### [facility] [address] [address] [address] Lisbeth Ramirez PLT 222 103/ul Normal 150-450 [facility] Comment on above: Performed By: #### C BC #### [facility] [address] [address] [address] Lisbeth Ramirez RBC 4.87 106/ul Normal 4.20-5.40 [facility] Comment on above: Performed By: #### C BC #### [facility] [address] [address] [address] Lisbeth Ramirez WBC 8.7 103/ul Normal 4.0-11.0 [facility] Comment on above: Performed By: #### C BC #### [facility] [address] [address] [address] Lisbeth Ramirez FREE THYROXINE INDEX T7on FTI 3.80 Normal 1.30-4.50 [facility] Comment on above: Performed By: #### T SH, CMP, LIPID, T7 ####[facility] [address] [id number]. Lisbeth Ramirez T3U 33.0 % Normal 30.0-39.0 [facility] Comment on above: Performed By: #### T SH, CMP, LIPID, T7 ####[facility] [address] [place], [place] [address]OaDr. Lisbeth Ramirez T4 [Mass/Vol] 11.50 ug/dL Normal 4.80-13.90 [facility] Comment on above: Performed By: #### T SH, CMP, LIPID, T7 ####[facility] [address] [place], [place] [address]ZoDr. Lisbeth Ramirez GLYCOHEMOGLOBIN A1Con 2021 ADA RECOMMENDATION SEE BELOW Normal [facility] Comment on above: Result Comment: ADA RECOMMENDED LIMIT 4.0 - 6.0 ADA THERAPEUTIC TARGET < 7.0 ACTION SUGGESTED > 7.0 Performed By: #### A 1C #### [facility] [address] [address] [address] Lisbeth Ramirez Glucose [Mass/Vol] 105 mg/dL Normal [facility] Comment on above: Performed By: #### A 1C #### [facility] [address] [address] [address] Lisbeth Ramirez HbA1c (Bld) [Mass fraction] 5.3 % Normal 4.5-6.2 [facility] Comment on above: Performed By: #### A 1C #### [facility] [address] [address] [address] Lisbeth Ramirez IRONon 08-28-2022 Iron [Mass/Vol] 54.0 ug/dL Normal 50.0-170.0 [facility] Comment on above: Performed By: #### I DAGO #### [facility] [address] [address] [address] Lisbeth Ramirez LIPID PROFILEon 08-28-2022 CHOL-HDL RATIO NORM SEE BELOW Normal [facility] Comment on above: Result Comment: 3.3 - 4.4 LOW RISK 4.4 - 7.1 AVERAGE RISK 7.1 - 11.0 MODERATE RISK >11.0 HIGH RISK Performed By: #### T SH, CMP, LIPID, T7 ####[facility] [address] [place], [place] [address]Dr. Lisbeth Ramirez Cholesterol [Mass/Vol] 187 mg/dL Normal <=200 [facility] Comment on above: Performed By: #### T SH, CMP, LIPID, T7 ####[facility] [address] [place], [place] [address]Xr. Lisbeth Ramirez Cholesterol in HDL [Mass/Vol] 67 mg/dL Critically high 40-60 [facility] Comment on above: Performed By: #### T SH, CMP, LIPID, T7 ####[facility] [address] [place], [place] [address]Hs. Lisbeth Ramirez Cholesterol in LDL [Mass/Vol] 95.8 mg/dL Normal [facility] Comment on above: Performed By: #### T SH, CMP, LIPID, T7 ####[facility] [address] [id number]. Lisbeth Ramirez Cholesterol.total/Cho lesterol in HDL [Mass ratio] 2.8 {ratio} Normal [facility] Comment on above: Performed By: #### T SH, CMP, LIPID, T7 ####[facility] [address] [id number]. Lisbeth Ramirez HDL NORMAL > or = 60 mg/dl - LOW CARDIOVASCULAR RISK <40 mg/dl - HIGH CARDIOVASCULAR RISK Normal [facility] Comment on above: Performed By: #### T SH, CMP, LIPID, T7 ####[facility] [address] [place] [id number]. Lisbeth Ramirez LDL CALC NORMAL SEE BELOW Normal [facility] [place] Comment on above: Result Comment: <100 mg/dl OPTIMAL 100 - 129 mg/dl NEAR OR ABOVE OPTIMAL 130 - 159 mg/dl BORDERLINE HIGH 160 - 189 mg/dl HIGH >190 mg/dl VERY HIGH Performed By: #### T SH, CMP, LIPID, T7 ####[facility] [address] [place] [id number]. Lisbeth Ramirez Triglyceride [Mass/Vol] 121 mg/dL Normal <=150 [facility] Comment on above: Performed By: #### T SH, CMP, LIPID, T7 ####[facility] [address] [id number]. Lisbeth Ramirez VLDL CALC 24.2 mg/dL Normal [facility] Comment on above: Performed By: #### T SH, CMP, LIPID, T7 ####[facility] [address] [place] [address]Dr. Lisbeth Ramirez PROF 14(COMP METB)on 022 Albumin [Mass/Vol] 4.1 g/dL Normal 3.4-5.0 [facility] Comment on above: Performed By: #### T SH, CMP, LIPID, T7 ####[facility] [address] [place] [address]Dr. Lisbeth Ramirez Albumin/Globulin [Mass ratio] 0.9 {ratio} Normal [facility] Comment on above: Performed By: #### T SH, CMP, LIPID, T7 ####[facility] [address] [place] [address]Dr. Lisbeth Ramirez ALP [Catalytic activity/Vol] 94 U/L Normal 46-116 [facility] Comment on above: Performed By: #### T SH, CMP, LIPID, T7 ####[facility] [address] [place] [address]Dr. Lisbeth Ramirez ALT [Catalytic activity/Vol] 13 U/L Critically low 14-59 [facility] Comment on above: Performed By: #### T SH, CMP, LIPID, T7 ####[facility] [address] [place] [address]Dr. Lisbeth Ramirez Anion gap [Moles/Vol] 11.4 mmol/L Normal [facility] Comment on above: Performed By: #### T SH, CMP, LIPID, T7 ####[facility] [address] [address]Dr. Lisbeth Ramirez AST [Catalytic activity/Vol] 23 U/L Normal 15-37 [facility] Comment on above: Performed By: #### T SH, CMP, LIPID, T7 ####[facility] [address] [place] [address]Dr. Lisbeth Ramirez Bilirubin [Mass/Vol] 0.7 mg/dL Normal 0.2-1.0 [facility] Comment on above: Performed By: #### T SH, CMP, LIPID, T7 ####[facility] [address] [place] [address]Dr. Lisbeth Ramirez Calcium [Mass/Vol] 9.5 mg/dL Normal 8.5-10.1 [facility] Comment on above: Performed By: #### T SH, CMP, LIPID, T7 ####[facility] [address] [place] [address]Dr. Lisbeth Ramirez Chloride [Moles/Vol] 104 mmol/L Normal 98-107 [facility] Comment on above: Performed By: #### T SH, CMP, LIPID, T7 ####[facility] [address] [place] [address]Dr. Lisbeth Ramirez CO2 [Moles/Vol] 25.9 mmol/L Normal 21.0-32.0 [facility] Comment on above: Performed By: #### T SH, CMP, LIPID, T7 ####[facility] [address] [place] [address]Dr. Lisbeth Ramirez Creatinine [Mass/Vol] 0.67 mg/dL Normal 0.55-1.02 [facility] Comment on above: Performed By: #### T SH, CMP, LIPID, T7 ####[facility] [address] [place] [address]Dr. Lisbeth Ramirez EGFR-AF CITIZEN [place] >60 Normal >=60 [facility] Comment on above: Performed By: #### T SH, CMP, LIPID, T7 ####[facility] [address] [place] [address]Dr. Lisbeth Ramirez EGFR-NON AF CITIZEN OF [place] >60 Normal >=60 [facility] Comment on above: Performed By: #### T SH, CMP, LIPID, T7 ####[facility] [address] [place] [address]Dr. Lisbeth Ramirez Globulin (S) [Mass/Vol] 4.2 g/dL Normal [facility] Comment on above: Performed By: #### T SH, CMP, LIPID, T7 ####[facility] [address] [address]Dr. Lisbeth Ramirez Glucose [Mass/Vol] 103 mg/dL Normal 74-106 [facility] Comment on above: Performed By: #### T SH, CMP, LIPID, T7 ####[facility] [address] [place] [address]Dr. Lisbeth Ramirez Potassium [Moles/Vol] 3.6 mmol/L Normal 3.5-5.1 [facility] Comment on above: Performed By: #### T SH, CMP, LIPID, T7 ####[facility] [address] [place] [address]Dr. Lisbeth Ramirez Protein [Mass/Vol] 8.3 g/dL Critically high 6.4-8.2 [facility] Comment on above: Performed By: #### T SH, CMP, LIPID, T7 ####[facility] [address] [place] [address]Dr. Lisbeth Ramirez Sodium [Moles/Vol] 138 mmol/L Normal 136-145 [facility] Comment on above: Performed By: #### T SH, CMP, LIPID, T7 ####[facility] [address] [address]Dr. Lisbeth Ramirez Urea nitrogen [Mass/Vol] 12.0 mg/dL Normal 7.0-18.0 [facility] Comment on above: Performed By: #### T SH, CMP, LIPID, T7 ####[facility] [address] [place], [place] [address]Dr. Lisbeth Ramirez Urea nitrogen/Creatinine [Mass ratio] 17.9 mg/mg Normal [facility] Comment on above: Performed By: #### T SH, CMP, LIPID, T7 ####[facility] [address] [address]Dr. Lisbeth Ramirez TSHon 08-28-2022 TSH 0.572 uIU/mL Normal 0.358-3.740 [facility] Comment on above: Performed By: #### T SH, CMP, LIPID, T7 ####[facility] [address] [place] [address]Dr. Lisbeth Ramirez UA (CLEAN/CATCH) RECORDS ADMINISTRATOR/MICRO I F IND.on 06-10-2022 Bilirubin Ql (U) Negative Normal NEGATIVE [facility] Comment on above: Performed By: #### U ACSIND, UMICRO #### [facility] [address] [address] [address] Lisbeth Ramirez Clarity (U) CLEAR Normal CLEAR [facility] Comment on above: Performed By: #### U ACSIND, UMICRO #### [facility] [address] [address] [address] Lisbeth Ramirez Color (U) YELLOW Normal YELLOW [facility] Comment on above: Performed By: #### U ACSIND, UMICRO #### [facility] [address] [address] [address] Lisbeth Ramirez Glucose Ql (U) Negative Normal NEGATIVE [facility] Comment on above: Performed By: #### U ACSIND, UMICRO #### [facility] [facility] [address] [place] [address] Dr. Lisbeth Ramirez Hemoglobin Ql (U) MODERATE Abnormal NEGATIVE [facility] Comment on above: Performed By: #### U ACSIND, UMICRO #### [facility] [address] [place] [address] Dr. Lisbeth Ramirez Ketones Ql (U) Negative Normal NEGATIVE [facility] Comment on above: Performed By: #### U ACSIND, UMICRO #### [facility] [address] [address] [address] Lisbeth Ramirez LEUKOCYTES TRACE Abnormal NEGATIVE [facility] Comment on above: Performed By: #### U ACSIND, UMICRO #### [facility] [address] [address] [address] Lisbeth Ramirez Nitrite Ql (U) Negative Normal NEGATIVE [facility] Comment on above: Performed By: #### U ACSIND, UMICRO #### [facility] [address] [address] [address] Lisbeth Ramirez pH (U) 6.0 [pH] Normal 5-9 [facility] Comment on above: Performed By: #### U ACSIND, UMICRO #### [facility] [address] [address] [address] Lisbeth Ramirez SPEC GRAVITY 1.025 Normal 1.005-<=1.025 The [facility] Comment on above: Performed By: #### U ACSIND, UMICRO #### [facility] [address] [place] [address] Dr. Lisbeth Ramirez UA PROTEIN Negative Normal NEGATIVE/ TRACE [facility] Comment on above: Performed By: #### U ACSIND, UMICRO #### [facility] [address] [place] [address] Dr. Lisbeth Ramirez UR MICRO IND INDICATED Normal [facility] Comment on above: Performed By: #### U ACSIND, UMICRO #### [facility] [address] [place] [address] Dr. Lisbeth Ramirez Urobilinogen Qn (U) 0.2 {Ricci'U}/dL Normal 0.2 - 1. 0 [facility] Comment on above: Performed By: #### U ACSIND, UMICRO #### [facility] [address] [place] [address] Dr. Lisbeth Ramirez URINE MICROSCOPIC ONLYon BACTERIA NONE SEEN Normal NONE SEEN [facility] Comment on above: Performed By: #### U ACSIND, UMICRO #### [facility] [address] [place] [address] Dr. Lisbeth Ramirez Bacteria identified Cx Nom (U) NOT INDICATED Normal [facility] Comment on above: Performed By: #### U ACSIND, UMICRO #### [facility] [address] [place] [address] Dr. Lisbeth Ramirez CAST NONE SEEN Normal NONE SEEN [facility] Comment on above: Performed By: #### U ACSIND, UMICRO #### [facility] [address] [place] [address] Dr. Lisbeth Ramirez Crystals LM Nom (Urine sed) NONE SEEN Normal NONE SEEN [facility] Comment on above: Performed By: #### U ACSIND, UMICRO #### [facility] [address] [place] [address] Dr. Lisbeth Ramirez Epithelial cells LM Ql (Urine sed) FEW Abnormal NONE SEEN /RARE [facility] Comment on above: Performed By: #### U ACSIND, UMICRO #### [facility] [address] [address] [address] Lisbeth Ramirez MUCOUS NONE SEEN Normal NONE SEEN The [facility] Comment on above: Performed By: #### U ACSIND, UMICRO #### [facility] [address] [place], [place] [address] Dr. Lisbeth Ramirez RBC 2-5 Abnormal 0-2 [facility] Comment on above: Performed By: #### U ACSBLAISE, UMICRO #### [facility] [address] [address] [address] Lisbeth Ramirez WBC 0-2 Abnormal NONE SEEN [facility] Comment on above: Performed By: #### U ACSBLAISE, UMICRO #### [facility] [address] [address] [address] Lisbeth Ramirez XR knee LT 2Von 01-12-2022 XR knee LT 2V [place] [address] XRay Report Signed Patient: Richelle Pelaez MR#: [id number] : 1965 Acct:[id number] Age/Sex: 56 / F ADM Date: 01/12/22 Loc: [facility] Room: Type: [facility] Attending Dr: Heath Silva MD Ordering Provider: Heath Silva MD Date of Service: 01/12/22 XR/XR knee LT 2V: Other tear of medial meniscus, current injury, left knee, lyons Copies to: Heath Silav MD Left knee 01/12/2022. CLINICAL DATA: Left [...] Carney Jr., M.D.01/12/2022 4:14 PM Dictation Location: [place] [address] Transcribed By: [facility] 01/12/22 1614 Dictated By: Andrea Carney Jr, MD 01/12/22 1608 Signed By: 01/12/[address] [facility] MG MAMM DIAGNOSTIC 3D MARGARITA CA Don 01-01-2022 MG MAMM DIAGNOSTIC 3D MARGARITA CAD Patient: RICHELLE PELAEZ Exam Date: 01/01/2022 : 1965 Gender:F Ordering : DR NORA LINDO M.D. Admission #: [id number] Family : Order #: [id number] CLICK HERE TO VIEW EXAM RADIOLOGY REPORT [...] breast cancer at age 75. LOCATION: [facility] BREAST COMPOSITION: Almost entirely fatty. FINDINGS: DIAGNOSTIC [...] M.D. on 01/01/2022 at 15:42 Normal [facility] TSHon 05-22-2019 TSH Qn 2.23 uIU/ml Normal 0.47-4.68 [facility] Comment on above: Performed By: #### 7 50, 800, 1000, 1005, 4500, 4520, 4575 #### [facility] Unless Otherwise Noted [address] [place] [address] / [facility] #4724/CLIA # [id number] VITAMIN B12on 05-22-2019 Cobalamin (Vitamin B12) [Mass/Vol] 713.0 pg/mL Normal 239.0-931.0 [facility] Comment on above: Performed By: #### 7 50, 800, 1000, 1005, 4500, 4520, 4575 #### [facility] Unless Otherwise Noted [address] [place] [address] / [facility] #4724/CLIA # [id number] AFINION A1Con 05-19-2019 HbA1c (Bld) [Mass fraction] 5.6 G/DL Normal 4.5-6.0 [facility] Comment on above: Performed By: #### 7 50, 800, 1000, 1005, 4500, 4520, 4575 #### [facility] Unless Otherwise Noted [address] [place] [address] / [facility] #4724/CLIA # [id number] Comprehensiveon 05-19-2019 Albumin [Mass/Vol] 4.4 g/dL Normal 3.5-5.0 [facility] Comment on above: Performed By: #### 7 50, 800, 1000, 1005, 4500, 4520, 4575 #### [facility] Unless Otherwise Noted [address] [place] [address] / [facility] #4724/CLIA # [id number] ALP [Catalytic activity/Vol] 98.0 U/L Normal 38.0-126.0 [facility] Comment on above: Performed By: #### 7 50, 800, 1000, 1005, 4500, 4520, 4575 #### [facility] Unless Otherwise Noted [address] [place] [address] / [facility] #4724/CLIA # [id number] ALT [Catalytic activity/Vol] 16.0 U/L Normal 13.0-69.0 [facility] Comment on above: Performed By: #### 7 50, 800, 1000, 1005, 4500, 4520, 4575 #### [facility] Unless Otherwise Noted [address] [place] [address] / [facility] #4724/CLIA # [id number] Anion gap [Moles/Vol] 7.0 mmol/L Low 10.0-15.0 End [facility] Comment on above: Performed By: #### 7 50, 800, 1000, 1005, 4500, 4520, 4575 #### [facility] Unless Otherwise Noted [address] [place] [address] / [facility] #4724/CLIA # [id number] AST [Catalytic activity/Vol] 39.0 U/L Normal 15.0-46.0 [facility] Comment on above: Performed By: #### 7 50, 800, 1000, 1005, 4500, 4520, 4575 #### [facility] Unless Otherwise Noted [address] [place] [address] / [facility] #4724/CLIA # [id number] Bilirubin Ql (U) 0.40 mg/dL Normal 0.20-1.30 [facility] Comment on above: Performed By: #### 7 50, 800, 1000, 1005, 4500, 4520, 4575 #### [facility] Unless Otherwise Noted [address] [address] / [facility] #4724/CLIA # [id number] BUN/Cre Ratio 18.8 Ratio Normal 7.0-27.0 Endocrine [facility] Diabetes [facility] Comment on above: Performed By: #### 7 50, 800, 1000, 1005, 4500, 4520, 4575 #### [facility] Unless Otherwise Noted [address] [address] / [facility] #4724/CLIA # [id number] Calcium [Mass/Vol] 9.6 mg/dL Normal 8.4-10.2 [facility] Comment on above: Performed By: #### 7 50, 800, 1000, 1005, 4500, 4520, 4575 #### [facility] Unless Otherwise Noted [address] [address] / [facility] #4724/CLIA # [id number] Chloride [Moles/Vol] 107.0 mmol/L Normal 98.0-107.0 En [facility] Comment on above: Performed By: #### 7 50, 800, 1000, 1005, 4500, 4520, 4575 #### [facility] Unless Otherwise Noted [address] [address] / [facility] #4724/CLIA # [id number] CO2 [Moles/Vol] 28.0 mmol/L Normal 22.0-30.0 Endocrin [facility] Comment on above: Performed By: #### 7 50, 800, 1000, 1005, 4500, 4520, 4575 #### [facility] Unless Otherwise Noted [address] [address] / [facility] #4724/CLIA # [id number] Creatinine [Mass/Vol] 0.8 mg/dL Normal 0.5-1.0 End [facility] Comment on above: Performed By: #### 7 50, 800, 1000, 1005, 4500, 4520, 4575 #### [facility] [place] Unless Otherwise Noted [address] [place] [address] / [facility] #4724/CLIA # [id number] GFR/1.73 sq M predicted among blacks MDRD (S/P/Bld) [Vol rate/Area] 96.9 ml/m1.[address] [facility] Comment on above: Performed By: #### 7 50, 800, 1000, 1005, 4500, 4520, 4575 #### [facility] Unless Otherwise Noted [address] [place] [address] / [facility] #4724/CLIA # [id number] GFR/1.73 sq M predicted among non-blacks MDRD (S/P/Bld) [Vol rate/Area] 80.1 ml/m1.[address] [facility] Comment on above: Performed By: #### 7 50, 800, 1000, 1005, 4500, 4520, 4575 #### [facility] [place] Unless Otherwise Noted [address] [place] [address] / [facility] #4724/CLIA # [id number] GFR/1.73 sq M predicted among non-blacks MDRD (S/P/Bld) [Vol rate/Area] 139.1 ml/m1.[address] [facility] Comment on above: Performed By: #### 7 50, 800, 1000, 1005, 4500, 4520, 4575 #### [facility] Unless Otherwise Noted [address] [address] / [facility] #4724/CLIA # [id number] Glucose [Mass/Vol] 91.0 mg/dL Normal 74.0-106.0 [facility] Comment on above: Performed By: #### 7 50, 800, 1000, 1005, 4500, 4520, 4575 #### [facility] Unless Otherwise Noted [address] [address] / [facility] #4724/CLIA # [id number] Potassium [Moles/Vol] 3.9 mmol/L Normal 3.5-5.1 End [facility] Comment on above: Performed By: #### 7 50, 800, 1000, 1005, 4500, 4520, 4575 #### [facility] Unless Otherwise Noted [address] [address] / [facility] #4724/CLIA # [id number] Protein [Mass/Vol] 7.6 g/dL Normal 6.3-8.2 [facility] Comment on above: Performed By: #### 7 50, 800, 1000, 1005, 4500, 4520, 4575 #### [facility] Unless Otherwise Noted [address] [address] / [facility] #4724/CLIA # [id number] Sodium [Moles/Vol] 142.0 mmol/L Normal 137.0-145.0 End [facility] Comment on above: Performed By: #### 7 50, 800, 1000, 1005, 4500, 4520, 4575 #### [facility] Unless Otherwise Noted [address] [address] / [facility] #4724/CLIA # [id number] Urea nitrogen [Mass/Vol] 15.0 mg/dL Normal 7.0-17.0 [facility] Comment on above: Performed By: #### 7 50, 800, 1000, 1005, 4500, 4520, 4575 #### [facility] [place] Unless Otherwise Noted [address] [address] / [facility] #4724/CLIA # [id number] FT4on 05-19-2019 Free T4 [Mass/Vol] 1.10 ng/dL Normal 0.64-1.79 [facility] Comment on above: Performed By: #### 7 50, 800, 1000, 1005, 4500, 4520, 4575 #### [facility] and [facility] Unless Otherwise Noted [address] [address] / [facility] #4724/CLIA # [id number] Lipidson 05-19-2019 Cholesterol [Mass/Vol] 209.0 mg/dL High 0.0-199.0 [facility] Comment on above: Performed By: #### 7 50, 800, 1000, 1005, 4500, 4520, 4575 #### [facility] and [facility] Unless Otherwise Noted [address] [address] / [facility] #4724/CLIA # [id number] Cholesterol in HDL [Mass/Vol] 66.0 mg/dL High 40.0-60.0 [facility] Comment on above: Performed By: #### 7 50, 800, 1000, 1005, 4500, 4520, 4575 #### [facility] and [facility] Unless Otherwise Noted [address] [address] / [facility] #4724/CLIA # [id number] Cholesterol in LDL [Mass/Vol] 118.4 mg/dL High 0.0-100.0 [facility] Comment on above: Performed By: #### 7 50, 800, 1000, 1005, 4500, 4520, 4575 #### [facility] Unless Otherwise Noted [address] [address] / [facility] #4724/CLIA # [id number] Cholesterol in VLDL [Mass/Vol] 24.6 mg/dL Normal [facility] Comment on above: Performed By: #### 7 50, 800, 1000, 1005, 4500, 4520, 4575 #### [facility] Unless Otherwise Noted [address] [address] / [facility] #4724/CLIA # [id number] Cholesterol.total/Cho lesterol in HDL [Mass ratio] 3.2 {ratio} Normal [facility] and Diabetes [facility] Comment on above: Performed By: #### 7 50, 800, 1000, 1005, 4500, 4520, 4575 #### [facility] Unless Otherwise Noted [address] [address] / [facility] #4724/CLIA # [id number] Triglyceride [Mass/Vol] 123.0 mg/dL Normal 0.0-150.0 [facility] Comment on above: Performed By: #### 7 50, 800, 1000, 1005, 4500, 4520, 4575 #### [facility] Unless Otherwise Noted [address] [address] / [facility] #9624/CLIA # [id number] NEW MICROALBUMINon 9 Creatinine (U) [Mass/Vol] 128.3 mg/dL Normal [facility] Comment on above: Performed By: #### 7 50, 800, 1000, 1005, 4500, 4520, 4575 #### [facility] and [facility] Unless Otherwise Noted [address] [address] / [facility] #4724/CLIA # [id number] Microalbumin 37.0 mg/L High 0.0-30.0 Endocrine [facility] Diabetes [facility] Comment on above: Performed By: #### 7 50, 800, 1000, 1005, 4500, 4520, 4575 #### Endocrine and Diabetes [facility] Unless Otherwise Noted [address] [place] [address] / [facility] #4724/CLIA # [id number] Urine A/C Ratio 28.8 mg/g Normal 0.0-30.0 [facility] and [facility] Comment on above: Performed By: #### 7 50, 800, 1000, 1005, 4500, 4520, 4575 #### [facility] and [facility] Unless Otherwise Noted [address] [place] [address] / [facility] #4724/CLIA # [id number] Vital Signs Date Time Vital Sign Value Performing Clinician Facility 01-12-2022 16:00-0500 Body height 157.48 cm Heath Silva Other [facility] Other 01-12-2022 16:00-0500 Body mass index (BMI) [Ratio] 45.17 kg/m2 Heath Silva Other [facility] Other 01-12-2022 16:00-0500 Body weight 112.04 kg Heath Silva Other [facility] Other 11-04-2021 10:00-0500 Body height 157.48 cm Heath Olexa Other [facility] Other 11-04-2021 10:00-0500 Body mass index (BMI) [Ratio] 46.82 kg/m2 Heath Olexa Other [facility] Other 11-04-2021 10:00-0500 Body weight 116.12 kg Heath Olexa Other [facility] Other 10-14-2021 14:30-0500 Body height 157.48 cm Heath Olexa Other [facility] Other 10-14-2021 14:30-0500 Body mass index (BMI) [Ratio] 46.16 kg/m2 Heath Olexa Other [facility] Other 10-14-2021 14:30-0500 Body weight 114.49 kg Heath Olexa Other [facility] Other 05-19-2019 18:58-0400 Body weight 107.1 Kg [facility] Comment on above: Performed By: #### 750, 800, 1000, 1005, 4500, 4520, 4575 #### [facility] Unless Otherwise Noted [address] [place] [address] / [facility] #4724/CLIA # [id number] Encounters Encounter Date Encounter Type Care Provider Facility Start: 07-24-2024 End: 07-24-2024 ambulatory JOSUE HINOJOSA Not Available Start: 07-04-2024 End: 07-04-2024 ambulatory DIEGO DUNNE Not Available Start: 04-27-2024 End: 04-27-2024 ambulatory JOSUE HINOJOSA Not Available Start: 03-03-2024 End: 03-04-2024 ambulatory [facility] Start: 01-26-2024 End: [...] Available Start: 11-15-2023 Orders Only Faheem willson CHAINSTITCH SEWING MACHINE OPERATOR-TELEMETRY NURSE Work Phone: [facility] Comment on above: Postablative hypothy roidism (Primary Dx) Start: 11-12-2023 End: 11-13-2023 ambulatory FAHEEM ROCK [facility] Start: 11-03-2023 End: 11-03-2023 ambulatory JOSUE HINOJOSA Not Available Start: 04-06-2023 Telephone encounter G Yuri Lindo MD Work Phone: Radiation Oncology Comment on above: Patient Question Start: 12-21-2022 End: 12-22-[address] NORA LINDO Facility:[facility] Start: 09-28-2022 End: 09-28-[address] CHACHA LEDBETTER Facility:[facility] Start: 09-02-2022 Encounter for genera l adult medical examination without abnormal findings DR CHACHA LEDBETTER [facility] Start: 08-28-2022 End: 08-29-[address] CHACHA LEDBETTER Facility:[facility] Start: 08-28-2022 End: 08-29-2022 Encounter for general adult medical examination without abnormal findings DR CHACHA LEDBETTER Facility:[facility] Start: 06-14-2022 Encounter for other preprocedural examination DR DOCTOR SCHULZ [facility] Start: 06-10-2022 End: 06-11-[address] CHACHA LEDBETTER Facility:[facility] Start: 06-10-2022 End: 06-11-2022 Encounter for other preprocedural examination DR CHACHA LEDBETTER Facility:[facility] Start: 02-03-2022 End: 02-03-2022 ambulatory Heath Olexa Other [facility] Other Start: 02-03-2022 Office outpatient vi sit 15 minutes Heath Olexa [facility] Start: 01-12-2022 End: 01-12-2022 ambulatory Heath Olexa Other [facility] Other Start: 01-12-2022 Office outpatient vi sit 15 minutes Heath Olexa [facility] Start: 01-01-2022 End: 01-02-[address] CHACHA LEDBETTER Facility:[facility] Start: 11-04-2021 End: 11-04-2021 ambulatory Heath Olexa Other [facility] Other Start: 11-04-2021 Office outpatient vi sit 15 minutes Heath Olexa [facility] Start: 10-14-2021 End: 10-14-2021 ambulatory Heath Olexa Other [facility] Other Start: 10-14-2021 Office outpatient vi sit 15 minutes Heath Olexa [facility] Start: 09-11-2021 End: 09-11-2021 ambulatory Heath Olexa Other [facility] Other Start: 09-11-2021 Telephone encounter Heath Olexa [facility] Start: 10-24-2018 End: 10-25-2018 Patient encounter procedure DEFAULT PHYSICIAN Facility:[facility] Start: 10-04-2018 Patient encounter procedure Faheem Rock CHAINSTITCH SEWING MACHINE OPERATOR-TELEMETRY NURSE Work Phone: [facility] Procedures Date Procedure Procedure Detail Performing Clinician Start: 11-12-2023 Microalbumin [Mass/v olume] in Urine by Test strip Faheem Rock CHAINSTITCH SEWING MACHINE OPERATOR-TELEMETRY NURSE Work Phone: Start: 11-15-2018 Mammography Faheem chahal CHAINSTITCH SEWING MACHINE OPERATOR-TELEMETRY NURSE Work Phone: Plan of Treatment Date Care Activity Detail Author Start: 11-12-2024 Urine screening for protein Urine Microalbumin [facility] Start: 09-03-2024 Adult BMI Screening Adult BMI Screen ing [facility] Start: 09-03-2024 Diabetic foot examination Diabetic Foot Exam [facility] Start: 09-03-2024 Tobacco Screening Tobacco Screening [facility] Start: 07-03-2024 End: 07-03-2024 Patient encounter procedure 07/03/2024 3:00 PM EDT Office Visit [facility] [address] [facility] [address] [place] [address] Chris Nielsen PA [address] [place] [address] [facility] Start: 03-03-2024 End: 03-03-2024 Patient encounter procedure 03/03/2024 11:45 AM EDT Office Visit [facility] [address] [place] [address] Nadia Sotomayor MD [address] [place] [address] [facility] Start: 01-26-2024 End: 01-26-2024 Patient encounter procedure 01/26/2024 4:15 PM EDT Procedure Visit [facility] [address] [place] [address] Josue Hinojosa DPM [address] [place] [address] [facility] Start: 01-10-2024 End: 11-15-2024 Thyroid profile includes TSH FT4 Thyroid profile includes TSH FT4 Lab Routine Postablative hypothyroidism Expected: 01/10/2024 (Approximate), Expires: 11/15/2024 [facility] Work Phone: Comment on above: Expected: 01/10/2024 (Approximate), Expires: 11/15/2024 Start: 07-09-2023 COVID-19 Vaccine ( season) COVID-19 Vaccine ( season) [facility] Start: 07-09-2023 Influenza vaccination [facility] Start: 11-08-2022 DEPRESSION ASSESSMENT DEPRESSION ASS ESSMENT [facility] Start: 01-16-2022 COVID-19 VACCINE (4 - Booster for Pfizer series) COVID-19 VACCINE (4 - Booster for Pfizer series) [facility] Start: 10-04-2021 DIABETES SCREEN DIABETES SCREEN [facility] Start: 11-15-2019 Screening for malign ant neoplasm of breast Mammogram [facility] Start: 2017 SHINGRIX VACCINE (1 of 2) SHINGRIX VACCINE (1 of 2) [facility] Start: 2012 COLOGUARD (FIT-DNA) COLOGUARD (FIT-D NA) [facility] Start: 2012 Colonoscopy COLONOSCOPY [facility] Start: 2012 COLORECTAL CANCER SCREENING COLORECTAL CANCER SCREENING [facility] Start: [address] COLONOGRAPHY [facility] Start: 2012 FECAL OCCULT BLOOD FECAL OCCULT BLOO D [facility] Start: 2012 LIPID SCREEN LIPID SCREEN [facility] Start: 2012 SIGMOIDOSCOPY SIGMOIDOSCOPY [facility] Start: 2007 Mammography MAMMOGRAM [facility] Start: 1997 HPV TESTING HPV TESTING [facility] Start: 1997 Screening for malign ant neoplasm of cervix [facility] Start: 1988 PAP TESTING PAP TESTING [facility] Start: 1988 Screening for malign ant neoplasm of cervix Pap Smear [facility] Start: 1986 Administration of varicella zoster vaccine Zoster (Shingles) Vaccine (1 of 2) [facility] Start: 1986 DTaP,Tdap and Td Vaccines (1 - Tdap) DTaP,Tdap and Td Vaccines (1 - Tdap) [facility] Start: 1986 Urine microalbumin profile DTAP,TDAP,TD (1 - Tdap) [facility] Start: 1985 HEPATITIS C SCREENING HEPATITIS C SC REENING [facility] Start: 1985 HIV SCREENING HIV SCREENING [facility] Start: 1979 Depression Screening Depression Scre ening [facility] Start: 1967 Glaucoma screening Diabetic Op hthalmology Exam [facility] Start: 1967 HEPATITIS B (1 of 3 - 3-dose series) HEPATITIS B (1 of 3 - 3-dose series) [facility] Start: 1967 Screening for malign ant neoplasm of colon [facility] Immunizations Immunization Date Immunization Notes Care Provider Fa reginaldo NEGATED: Highlighted row has not occurred!10-21-2018 influenza, injectable, quadrivalent, preservative free Faheemlida Rock CHAINSTITCH SEWING MACHINE OPERATOR-TELEMETRY NURSE Work Phone: [facility] Comment on above: Deferred: Patient Re fused Payers Date Payer Category Payer Private Health [facility] [id number] 2022-Present [phone] [address] [address] [place] [address] [id number] 2020 Unknown 1967 Unknown [id number] 2.16.840.1.263085.3.579. 2.647 1967 Unknown [id number] 2.16.840.1.071281.3.579. 2.593 1967 Unknown [id number] 2.16.840.1.718709.3.579. 2.593 1967 Unknown [id number] 2.16.840.1.837624.3.579. 2.593 1967 Unknown [id number] 2.16.840.1.649002.3.579. 2.593 1967 Unknown [id number] 2.16.840.1.489726.3.579. 2.593 1967 Unknown [id number] 2.16.840.1.412973.3.579. 2.1286 1967 Unknown [id number] 2.16.840.1.982336.3.579. 2.6 1967 Unknown [id number] 2.16.840.1.652853.3.579. 2.6 1967 Unknown [id number] 2.16.840.1.598567.3.579. 2.1258 1967 Unknown [id number] 2.16.840.1.360215.3.579. 2.1258 1967 Unknown [id number] 2.16.840.1.098235.3.579. 2.1258 1967 Unknown [id number] 2.16.840.1.098140.3.579. 2.1258 1967 Unknown [id number] 2.16.840.1.636006.3.579. 2.1258 1967 Unknown [id number] 2.16.840.1.905317.3.579. 2.1258 1967 Unknown [id number] 2.16.840.1.041387.3.579. 2.1259 1959 Unknown [id number] 2.16.840.1.754321.19 1959 Unknown [id number] Social History Date Type Detail Facility Start: 10-07-2018 End: 11-03-2023 Sex Assigned At [facility] [employer] Other Start: 09-22-2012 End: 04-27-2023 Tobacco smoking status WAIS Never smoked tobacco [facility] Start: 09-22-2012 End: 04-27-2023 Tobacco use and exposure Smokeless tobacco non-user [facility] Start: 06-25-2022 Alcohol intake Not Asked Iraida baron [facility] Start: 1965 Sex Assigned At Not on file [facility] Start: 09-03-2023 End: 11-03-2023 Alcohol intake Current drinker of alcohol (finding) [facility] Start: 10-07-2018 End: 11-03-2023 History of Social function [facility] Frequency of Alcohol Consumption Never [facility] Start: 11-02-2018 [facility] Start: 07-05-2023 Alcohol Comment caffeine intak e: 1-2 cups per day. [facility] Medical Equipment Procedure Code Equipment Code Equipment Origin al Text Equipment Identifier Dates TEST ONCE DAILY [id number] Start: 05-23-2019 Monitor blood [facility] daily [id number] Start: 11-03-2018 Goals Date Patient Goal Desired [...] scanned Op note documented in this encounter [facility] 04-06-2023 Miscellaneous Notes Formattin g of [...] Courtney Garcia LPN documented in this encounter [facility] 02-03-2022 Evaluation note Encounter Date Diagnosis Assessment [...] aid in pain relief at the knee. [employer] Other 03-07-2022 Evaluation note* Encounter Date Diagnosis [...] Other specified postprocedural states (ICD-10 - Z98.890) [employer] Other 12-28-2021 Evaluation note* Encounter Date Diagnosis [...] - Z98.890) Patient off work until 11/19/21 [employer] Other 12-07-2021 Evaluation note* Encounter Date Diagnosis [...] work for off work until next appointment [employer] Other Evaluation noteNo InformationN[employer] Other Evaluation note* Diagnosis Postablative hypothyroidism- Primary Other postablative hypothyroidism documented in this encounter [employer]* Diagnosis Primary osteoarthritis, left ankle [...] knee arthroscopy, medial m enisecectomy. DOS 07/08/21 [employer] Other InstructionsNot on filedocumented in this encounter [employer] Summary Purpose Family History No Family History [...] section and content) DATE CREATED AUTHOR 10/27/2018 [facility] DATE CREATED AUTHOR AUTHOR'S ORGANIZ ATION 05/29/2019 [facility] DATE CREATED AUTHOR AUTHOR'S ORGANIZ ATION 01/13/2022 [facility] DATE CREATED AUTHOR AUTHOR'S ORGANIZ ATION 12/26/2022 [facility] DATE CREATED AUTHOR AUTHOR'S ORGANIZ ATION 04/16/2023 [facility] DATE CREATED AUTHOR AUTHOR'S ORGANIZ ATION 11/14/2023 [facility] DATE CREATED AUTHOR AUTHOR'S ORGANIZ ATION 03/05/2024 [facility] DATE CREATED AUTHOR AUTHOR'S ORGANIZ ATION 03/05/2024 [facility] DATE CREATED AUTHOR AUTHOR'S ORGANIZ ATION 07/26/2024 [facility] d[facility] Specialists EPIC REASON FOR VISIT [...] or prosecute any alcohol or drug abuse patient.[facility] Care Teams (unrecognized sec tion and content) [employer] Relationship Specialty Start Date End Date Chacha Ledbetter MD PCP - General Family Medicine 08/30/19 [employer] Relationship Specialty Start Date End Date Chacha Ledbetter MD [address] [place] [id number] PCP - General Family Medicine 10/21/22 [employer] Relationship Specialty Start Date End Date Chacha Ledbetter MD [address] [place] [id number] PCP - General Family Medicine 04/27/23 FOR [...] BE BASED ON THE PRIMARY CLINICAL RECORDS. [employer] [facility]. provides no warranty or guarantee of the accuracy or completeness of information in this document.
[2024-08-01 15:53] LABS: Anion Gap 12.4; Calcium 9.8 mg/dL (8.5-10.1); Carbon Dioxide 28.1 mmol/L (21.0-32.0); Chloride 102 mmol/L (98-107); Estimated GFR (African America 59 (>=60); Estimated GFR (Non-African Ame 49 (>=60); Glucose 95 mg/dL (74-106); Potassium 3.5 mmol/L (3.5-5.1); Sodium 139 mmol/L (136-145)
== END 2024-08-01 15:19 | disposition home or self-care (01) ==
LOC: LAB 15:18
PROVIDERS: PCP Family Medicine
DX: Z01.818 Encounter for other preprocedural examination (principal)
CPT/HCPCS: 36415; 80048

== ENCOUNTER 2024-08-02 15:45 | Outpatient (OUT) | payer OTHER, SELFPAY ==
--- OUTSIDE RECORDS SUMMARY | 2024-08-02 15:54 | XMS_ITS | CCD ---
Author Organization [facility] Care Team Providers Care Machine Adjuster Leader Name Role Phone PHYSICIAN, DEFAULT Unavailable Unavailable [...] Unavailable ENGELER, DR NORA Zamorano Consulting Unavailable Chcaha Ledbetter MD Primary Care Provider FAHEEM ROCK Referring Unavailable CHACHA LEDBETTER Primary Care Unavailable Chacha Ledbetter MD Primary Care Provider [phone] Chacha Ledbetter MD Primary Care Provider NADIA [...] 4 hrs for 3 days Jun, Active [id number] 200 actuat albuterol 0.09 mg/actuat metered dose [...] complication, without long-term current use of insulin ([facility]) Take 1 tablet (500 mg total) by mouth daily with dinner. 90 tablet 3 09/03/2023 Active Start: 10-21-2022 take 1 tablet by marcelina th at mealtime metFORMIN (Glucophage) 500 MG tablet Take 500 mg by mouth in the evening. Take with meals. 0 10/21/2022 Active Start: 03-14-2017 take 2 tablets by mo [facility] twice daily at mealtime metFORMIN ER [...] Free T4 [Mass/Vol] 1.40 ng/dL Normal 0.61-1.60 [facility] Comment on above: Performed By: #### T HYR #### [facility] ([id number]) [address] [facility] [place] [address] TSH 0.10 uIU/mL Low 0.49-4.67 [facility] Comment on above: Performed By: #### T HYR #### [facility] ([id number]) [address] [facility], [address] [place] [address] MICROALBUMIN - ALBUMIN:CREAT ININE URINE RATIOon 11-12-2023 ALB/CREAT RATIO 13.5 mg/g creat Normal 0.0-30.0 [facility] Comment on above: Performed By: #### M ALBU #### [facility] ([id number]) [address] [address] [place] [address] Albumin DL <= 20 mg/L (U) [Mass/Vol] 0.7 mg/dL Normal 0.0-1.9 [facility] Comment on above: Performed By: #### M ALBU #### [facility] ([id number]) [address] [place] [address], [address] [place] [address] URINE CREAT 51.79 mg/dL Normal [facility] Comment on above: Performed By: #### M ALBU #### [facility] ([id number]) [address] [place] [address], [address] [place] [address] THYROID PROFILEon 11-12-2023 Free T4 [Mass/Vol] 1.37 ng/dL Normal 0.61-1.60 [facility] Comment on above: Performed By: #### T HYR #### [facility] ([id number]) [address] [place] [address] TSH 0.06 uIU/mL Low 0.49-4.67 [facility] Comment on above: Performed By: #### T HYR #### [facility] ([id number]) [address] [place] [address] [facility] 04-06-2023 YVETTEN Telephone (BHANUA) RICHELLE PELAEZ ([id number]) 1965 F Date Time Provider Department 04/06/23 [...] encouraged her to call with further questions/concerns. oCurtney Garcia LPN Allergies As of Date: 04/06/2023 (No Known Allergies) Date Reviewed: 01/15/2022 Reviewed by: Laurie Suresh, AMBER - Fully Assessed Reason for Visit: Patient Question [[id number]] Prescriptions as of 04/06/2023 - amLODIPine (NORVASC) [...] Status:Closed by COURTNEY GARCIA on 04/06/23 Normal [facility] MG MAMM DIAGNOSTIC 3D MARGARITA CA Don 12-21-2022 MG MAMM DIAGNOSTIC 3D MARGARITA CAD Patient: RICHELLE PELAEZ Exam Date: 12/21/2022 : 1965 Gender:F Ordering : DR NORA LINDO M.D. Admission #: [id number] Family : Order #: [id number] CLICK HERE TO VIEW EXAM RADIOLOGY REPORT [...] breast cancer at age 75. LOCATION: [facility] BREAST COMPOSITION: Almost entirely fatty. FINDINGS: DIAGNOSTIC [...] MD on 12/21/2022 at 13:48 Normal [facility] Covid-19 PCR (CVDTB)on 09-09 SARS-CoV-2 (COVID-19) RNA ERIC+probe Ql (Unsp spec) Not detected Normal NOT DETECTED [facility] Comment on above: Result Comment: When diagnostic [...] for this test is supported by the Transmission Line Engineer of Health and Human Service's declaration that [...] used). Performed By: #### C VDTBH #### [facility] [address] [place] [address] Dr. Lisbeth Ramirez INFLUENZA A AND B AGon 09-28 INFLUANE SEE BELOW Normal [facility] Comment on above: Result Comment: Nega tive for Flu A protein angiten. Infection due to Flu A cannot be ruled out. Flu A angiten in the sample may be below the detection limit of the test. Performed By: #### I NFLUAB #### [facility] [address] [place] [address] Dr. Lisbeth Ramirez INFLUBNEG SEE BELOW Normal [facility] Comment on above: Result Comment: Nega tive for Flu B protein antigen. Infection due to Flu B cannot be ruled out. Flu B antigen in the sample may be below the detection limit of the test. Performed By: #### I NFLUAB #### [facility] [address] [place] [address] Dr. Lisbeth Ramirez INFLUENZA A AG Negative Normal NEGATIVE SEE COMMENT [facility] Comment on above: Performed By: #### I NFLUAB #### [facility] [address] [place] [address] Dr. Lisbeth Ramirez INFLUENZA B AG Negative Normal NEGATIVE SEE COMMENT [facility] Comment on above: Performed By: #### I NFLUAB #### [facility] [address] [place] [address] Dr. Lisbeth Ramirez INTERNAL CONTROLS Within Normal Limits Normal Wi thin Normal Limits [facility] Comment on above: Performed By: #### I NFLUAB #### [facility] [address] [place] [address] Dr. Lisbeth Ramirez INSULINon 08-29-2022 Insulin 30.4 uIU/mL Critically high 2.6-24.9 [facility] Comment on above: Performed By: #### I NSULIN #### [facility] [address] [place] [address] Dr. Lisbeth Ramirez CBC AUTO DIFFon 08-28-2022 BASO # 0.1 103/ul Normal 0.0-0.1 [facility] Comment on above: Performed By: #### C BC #### [facility] [address] [place] [address] Dr. Lisbeth Ramirez Basophils/100 WBC (Bld) 0.8 % Normal 0.2-2.0 [facility] Comment on above: Performed By: #### C BC #### [facility] [address] [place] [address] Dr. Lisbeth Ramirez EO # 0.2 103/ul Normal 0.0-0.7 [facility] Comment on above: Performed By: #### C BC #### [facility] [address] [place] [address] Dr. Lisbeth Ramirez Eosinophils/100 WBC (Bld) 2.5 % Normal 0.9-7.0 [facility] Comment on above: Performed By: #### C BC #### [facility] [address] [place] [address] Dr. Lisbeth Ramirez Erythrocyte distribution width (RBC) [Ratio] 13.0 % Normal 11.0-15.0 [facility] Comment on above: Performed By: #### C BC #### [facility] [address] [place] [address] Dr. Lisbeth Ramirez Hematocrit (Bld) [Volume fraction] 42.1 % Normal 36.0-48.0 [facility] Comment on above: Performed By: #### C BC #### [facility] [address] [place] [address] Dr. Lisbeth Ramirez Hemoglobin (Bld) [Mass/Vol] 14.0 g/dL Normal 12.0-16.0 [facility] Comment on above: Performed By: #### C BC #### [facility] [address] [place] [address] Dr. Lisbeth Ramirez IG # 0.02 10e3/ul Normal 0.00-0.03 [facility] Comment on above: Performed By: #### C BC #### [facility] [address] [place] [address] Dr. Lisbeth Ramirez IG % 0.2 % Normal 0.0-0.5 [facility] Comment on above: Performed By: #### C BC #### [facility] [address] [address] [address] Lisbeth Ramirez LYMPH # 1.8 103/ul Normal 1.2-3.8 [facility] Comment on above: Performed By: #### C BC #### [facility] [address] [address] [address] Lisbeth Ramirez Lymphocytes/100 WBC (Bld) 20.9 % Normal 20.5-60.0 [facility] Comment on above: Performed By: #### C BC #### [facility] [address] [place] [address] Dr. Lisbeth Ramirez MANUAL DIFF REQ NO Normal [facility] Comment on above: Performed By: #### C BC #### [facility] [address] [place] [address] Dr. Lisbeth Ramirez MCH (RBC) [Entitic mass] 28.7 pg Normal 26.7-34.0 [facility] Comment on above: Performed By: #### C BC #### [facility] [address] [place] [address] Dr. Lisbeth Ramirez MCHC (RBC) [Mass/Vol] 33.3 g/dL Normal 29.9-35.2 [facility] Comment on above: Performed By: #### C BC #### [facility] [address] [place] [address] Dr. Lisbeth Ramirez MCV (RBC) [Entitic vol] 86.4 fL Normal 81.0-99.0 [facility] Comment on above: Performed By: #### C BC #### [facility] [address] [place] [address] Dr. Lisbeth Ramirez MONO # 0.8 103/ul Normal 0.3-0.8 [facility] Comment on above: Performed By: #### C BC #### [facility] [address] [place] [address] Dr. Lisbeth Ramirez Monocytes/100 WBC (Bld) 8.8 % Normal 1.7-12.0 [facility] Comment on above: Performed By: #### C BC #### [facility] [address] [address] [address] Lisbeth Ramirez NEUT # 5.8 103/ul Normal 1.4-6.5 [facility] Comment on above: Performed By: #### C BC #### [facility] [address] [address] [address] Lisbeth Ramirez Neutrophils/100 WBC (Bld) 66.8 % Normal 43.0-75.0 [facility] Comment on above: Performed By: #### C BC #### [facility] [address] [address] [address] Lisbeth Ramirez Platelet mean volume (Bld) [Entitic vol] 10.5 fL Normal 9.5-13.5 [facility] Comment on above: Performed By: #### C BC #### [facility] [address] [address] [address] Lisbeth Ramirez PLT 222 103/ul Normal 150-450 [facility] Comment on above: Performed By: #### C BC #### [facility] [address] [address] [address] Lisbeth Ramirez RBC 4.87 106/ul Normal 4.20-5.40 [facility] Comment on above: Performed By: #### C BC #### [facility] [address] [address] [address] Lisbeth Ramirez WBC 8.7 103/ul Normal 4.0-11.0 [facility] Comment on above: Performed By: #### C BC #### [facility] [address] [address] [address] Lisbeth Ramirez FREE THYROXINE INDEX T7on FTI 3.80 Normal 1.30-4.50 [facility] Comment on above: Performed By: #### T SH, CMP, LIPID, T7 ####[facility] [address] [place] [id number]. Lisbeth Ramirez T3U 33.0 % Normal 30.0-39.0 [facility] Comment on above: Performed By: #### T SH, CMP, LIPID, T7 ####[facility] [address] [place], [place] [address]Dr. Lisbeth Ramirez T4 [Mass/Vol] 11.50 ug/dL Normal 4.80-13.90 [facility] Comment on above: Performed By: #### T SH, CMP, LIPID, T7 ####[facility] [address] [place], [place] [address]Dr. Lisbeth Ramirez GLYCOHEMOGLOBIN A1Con 2021 ADA RECOMMENDATION SEE BELOW Normal [facility] Comment on above: Result Comment: ADA RECOMMENDED LIMIT 4.0 - 6.0 ADA THERAPEUTIC TARGET < 7.0 ACTION SUGGESTED > 7.0 Performed By: #### A 1C #### [facility] [address] [address] [address] Lisbeth Ramirez Glucose [Mass/Vol] 105 mg/dL Normal [facility] Comment on above: Performed By: #### A 1C #### [facility] [address] [address] [address] Lisbeth Ramirez HbA1c (Bld) [Mass fraction] 5.3 % Normal 4.5-6.2 [facility] Comment on above: Performed By: #### A 1C #### [facility] [address] [address] [address] Lisbeth Ramirez IRONon 08-28-2022 Iron [Mass/Vol] 54.0 ug/dL Normal 50.0-170.0 [facility] Comment on above: Performed By: #### I DAGO #### [facility] [address] [address] [address] Lisbeth Ramirez LIPID PROFILEon 08-28-2022 CHOL-HDL RATIO NORM SEE BELOW Normal [facility] Comment on above: Result Comment: 3.3 - 4.4 LOW RISK 4.4 - 7.1 AVERAGE RISK 7.1 - 11.0 MODERATE RISK >11.0 HIGH RISK Performed By: #### T SH, CMP, LIPID, T7 ####[facility] [address] [place], [place] [address]LgDr. Lisbeth Ramirez Cholesterol [Mass/Vol] 187 mg/dL Normal <=200 [facility] Comment on above: Performed By: #### T SH, CMP, LIPID, T7 ####[facility] [address] [place], [place] [address]Ay. Lisbeth Ramirez Cholesterol in HDL [Mass/Vol] 67 mg/dL Critically high 40-60 [facility] Comment on above: Performed By: #### T SH, CMP, LIPID, T7 ####[facility] [address] [place], [place] [address]Na. Lisbeth Ramirez Cholesterol in LDL [Mass/Vol] 95.8 mg/dL Normal [facility] Comment on above: Performed By: #### T SH, CMP, LIPID, T7 ####[facility] [address] [place] [id number]. Lisbeth Ramirez Cholesterol.total/Cho lesterol in HDL [Mass ratio] 2.8 {ratio} Normal [facility] Comment on above: Performed By: #### T SH, CMP, LIPID, T7 ####[facility] [address] [place] [id number]. Lisbeth Ramirez HDL NORMAL > or = 60 mg/dl - LOW CARDIOVASCULAR RISK <40 mg/dl - HIGH CARDIOVASCULAR RISK Normal [facility] Comment on above: Performed By: #### T SH, CMP, LIPID, T7 ####[facility] [address] [place] [id number]. Lisbeth Ramirez LDL CALC NORMAL SEE BELOW Normal [facility] Comment on above: Result Comment: <100 mg/dl OPTIMAL 100 - 129 mg/dl NEAR OR ABOVE OPTIMAL 130 - 159 mg/dl BORDERLINE HIGH 160 - 189 mg/dl HIGH >190 mg/dl VERY HIGH Performed By: #### T SH, CMP, LIPID, T7 ####[facility] [address] [place] [id number]. Lisbeth Ramirez Triglyceride [Mass/Vol] 121 mg/dL Normal <=150 [facility] Comment on above: Performed By: #### T SH, CMP, LIPID, T7 ####[facility] [address] [place] [id number]. Lisbeth Ramirez VLDL CALC 24.2 mg/dL Normal [facility] Comment on above: Performed By: #### T SH, CMP, LIPID, T7 ####[facility] [address] [place] [address]Dr. Lisbeth Ramirez PROF 14(COMP METB)on 022 Albumin [Mass/Vol] 4.1 g/dL Normal 3.4-5.0 [facility] Comment on above: Performed By: #### T SH, CMP, LIPID, T7 ####[facility] [address] [place] [address]Dr. Lisbeth Ramirez Albumin/Globulin [Mass ratio] 0.9 {ratio} Normal [facility] Comment on above: Performed By: #### T SH, CMP, LIPID, T7 ####[facility] [address] [address]Dr. Lisbeth Ramirez ALP [Catalytic activity/Vol] 94 U/L Normal 46-116 [facility] Comment on above: Performed By: #### T SH, CMP, LIPID, T7 ####[facility] [address] [place] [address]Dr. Lisbeth Ramirez ALT [Catalytic activity/Vol] 13 U/L Critically low 14-59 [facility] Comment on above: Performed By: #### T SH, CMP, LIPID, T7 ####[facility] [address] [place] [address]Dr. Lisbeth Ramirez Anion gap [Moles/Vol] 11.4 mmol/L Normal [facility] Comment on above: Performed By: #### T SH, CMP, LIPID, T7 ####[facility] [address] [place] [address]Dr. Lisbeth Ramirez AST [Catalytic activity/Vol] 23 U/L Normal 15-37 [facility] Comment on above: Performed By: #### T SH, CMP, LIPID, T7 ####[facility] [address] [address]Dr. Lisbeth Ramirez Bilirubin [Mass/Vol] 0.7 mg/dL Normal 0.2-1.0 [facility] Comment on above: Performed By: #### T SH, CMP, LIPID, T7 ####[facility] [address] [place] [address]Dr. Lisbeth Ramirez Calcium [Mass/Vol] 9.5 mg/dL Normal 8.5-10.1 [facility] Comment on above: Performed By: #### T SH, CMP, LIPID, T7 ####[facility] [address] [place] [address]Dr. Lisbeth Ramirez Chloride [Moles/Vol] 104 mmol/L Normal 98-107 [facility] Comment on above: Performed By: #### T SH, CMP, LIPID, T7 ####[facility] [address] [place] [address]Dr. Lisbeth Ramirez CO2 [Moles/Vol] 25.9 mmol/L Normal 21.0-32.0 [facility] Comment on above: Performed By: #### T SH, CMP, LIPID, T7 ####[facility] [address] [place] [address]Dr. Lisbeth Ramirez Creatinine [Mass/Vol] 0.67 mg/dL Normal 0.55-1.02 [facility] Comment on above: Performed By: #### T SH, CMP, LIPID, T7 ####[facility] [address] [place] [address]Dr. Lisbeth Ramirez EGFR-AF MOZAMBICAN >60 Normal >=60 [facility] Comment on above: Performed By: #### T SH, CMP, LIPID, T7 ####[facility] [address] [place] [address]Dr. Lisbeth Ramirez EGFR-NON AF MOZAMBICAN >60 Normal >=60 [facility] Comment on above: Performed By: #### T SH, CMP, LIPID, T7 ####[facility] [address] [place] [address]Dr. Lisbeth Ramirez Globulin (S) [Mass/Vol] 4.2 g/dL Normal [facility] Comment on above: Performed By: #### T SH, CMP, LIPID, T7 ####[facility] [address] [place] [address]Dr. Lisbeth Ramirez Glucose [Mass/Vol] 103 mg/dL Normal 74-106 [facility] Comment on above: Performed By: #### T SH, CMP, LIPID, T7 ####[facility] [address] [place] [address]Dr. Lisbeth Ramirez Potassium [Moles/Vol] 3.6 mmol/L Normal 3.5-5.1 [facility] Comment on above: Performed By: #### T SH, CMP, LIPID, T7 ####[facility] [address] [place] [address]Dr. Lisbeth Ramirez Protein [Mass/Vol] 8.3 g/dL Critically high 6.4-8.2 [facility] Comment on above: Performed By: #### T SH, CMP, LIPID, T7 ####[facility] [address] [place] [address]Dr. Lisbeth Ramirez Sodium [Moles/Vol] 138 mmol/L Normal 136-145 [facility] Comment on above: Performed By: #### T SH, CMP, LIPID, T7 ####[facility] [address] [place] [address]Dr. Lisbeth Ramirez Urea nitrogen [Mass/Vol] 12.0 mg/dL Normal 7.0-18.0 [facility] Comment on above: Performed By: #### T SH, CMP, LIPID, T7 ####[facility] [address] [place], [place] [address]Dr. Lisbeth Ramirez Urea nitrogen/Creatinine [Mass ratio] 17.9 mg/mg Normal [facility] Comment on above: Performed By: #### T SH, CMP, LIPID, T7 ####[facility] [address] [place] [address]Dr. Lisbeth Ramirez TSHon 08-28-2022 TSH 0.572 uIU/mL Normal 0.358-3.740 [facility] Comment on above: Performed By: #### T SH, CMP, LIPID, T7 ####[facility] [address] [place] [address]Dr. Lisbeth Ramirez UA (CLEAN/CATCH) DIRECTOR OF ENTERPRISE ARCHITECTURE/MICRO I F IND.on 06-10-2022 Bilirubin Ql (U) Negative Normal NEGATIVE [facility] Comment on above: Performed By: #### U ACSIND, UMICRO #### [facility] [address] [address] [address] Lisbeth Ramirez Clarity (U) CLEAR Normal CLEAR [facility] Comment on above: Performed By: #### U ACSIND, UMICRO #### [facility] [address] [address] [address] Lisbeth Ramirez Color (U) YELLOW Normal YELLOW [facility] Comment on above: Performed By: #### U ACSIND, UMICRO #### [facility] [address] [address] [address] Lisbeth Ramirez Glucose Ql (U) Negative Normal NEGATIVE [facility] Comment on above: Performed By: #### U ACSIND, UMICRO #### [facility] [address] [place] [address] Dr. Lisbeth Ramirez Hemoglobin Ql (U) MODERATE Abnormal NEGATIVE [facility] Comment on above: Performed By: #### U ACSIND, UMICRO #### [facility] [address] [place] [address] Dr. Lisbeth Ramirez Ketones Ql (U) Negative Normal NEGATIVE [facility] Comment on above: Performed By: #### U ACSIND, UMICRO #### [facility] [address] [address] [address] Lisbeth Ramirez LEUKOCYTES TRACE Abnormal NEGATIVE [facility] Comment on above: Performed By: #### U ACSIND, UMICRO #### [facility] [address] [address] [address] Lisbeth Ramirez Nitrite Ql (U) Negative Normal NEGATIVE [facility] Comment on above: Performed By: #### U ACSIND, UMICRO #### [facility] [address] [address] [address] Lisbeth Ramirez pH (U) 6.0 [pH] Normal 5-9 [facility] Comment on above: Performed By: #### U ACSIND, UMICRO #### [facility] [address] [address] [address] Lisbeth Ramirez SPEC GRAVITY 1.025 Normal 1.005-<=1.025 [facility] Comment on above: Performed By: #### U ACSIND, UMICRO #### [facility] [address] [place] [address] Dr. Lisbeth Ramirez UA PROTEIN Negative Normal NEGATIVE/ TRACE [facility] Comment on above: Performed By: #### U ACSIND, UMICRO #### [facility] [address] [place] [address] Dr. Lisbeth Ramirez UR MICRO IND INDICATED Normal [facility] Comment on above: Performed By: #### U ACSIND, UMICRO #### [facility] [address] [place] [address] Dr. Lisbeth Ramirez Urobilinogen Qn (U) 0.2 {Ricci'U}/dL Normal 0.2 - 1. 0 [facility] Comment on above: Performed By: #### U ACSIND, UMICRO #### [facility] [address] [place] [address] Dr. Lisbeth Ramirez URINE MICROSCOPIC ONLYon BACTERIA NONE SEEN Normal NONE SEEN [facility] Comment on above: Performed By: #### U ACSIND, UMICRO #### [facility] [address] [place] [address] Dr. Lisbeth Ramirez Bacteria identified Cx Nom (U) NOT INDICATED Normal [facility] Comment on above: Performed By: #### U ACSIND, UMICRO #### [facility] [address] [place] [address] Dr. Lisbeth Ramirez CAST NONE SEEN Normal NONE SEEN [facility] Comment on above: Performed By: #### U ACSIND, UMICRO #### [facility] [address] [place] [address] Dr. Lisbeth Ramirez Crystals LM Nom (Urine sed) NONE SEEN Normal NONE SEEN [facility] Comment on above: Performed By: #### U ACSIND, UMICRO #### [facility] [address] [place] [address] Dr. Lisbeth Ramirez Epithelial cells LM Ql (Urine sed) FEW Abnormal NONE SEEN /RARE [facility] Comment on above: Performed By: #### U ACSIND, UMICRO #### [facility] [address] [address] [address] Lisbeth Ramirez MUCOUS NONE SEEN Normal NONE SEEN [facility] Comment on above: Performed By: #### U ACSIND, UMICRO #### [facility] [address] [place], [place] [address] Dr. Lisbeth Ramirez RBC 2-5 Abnormal 0-2 [facility] Comment on above: Performed By: #### U ACSBLAISE, UMICRO #### [facility] [address] [address] [address] Lisbeth Ramirez WBC 0-2 Abnormal NONE SEEN [facility] Comment on above: Performed By: #### U ACSBLAISE, UMICRO #### [facility] [address] [address] [address] Lisbeth Ramirez XR knee LT 2Von 01-12-2022 XR knee LT 2V [facility] [place] [address] XRay Report Signed Patient: Richelle Pelaez MR#: [id number] : 1965 Acct:[id number] Age/Sex: 56 / F ADM Date: 01/12/22 Loc: [facility] Room: Type: [facility] Attending Dr: Heath Silva MD Ordering Provider: [...] Carney Jr., M.D.01/12/2022 4:14 PM Dictation Location: [place] [address] Transcribed By: [facility] 01/12/22 1614 Dictated By: Andrea Carney Jr, MD 01/12/22 1608 Signed By: 01/12/22 1614 [facility] MG MAMM DIAGNOSTIC 3D MARGARITA CA Don 01-01-2022 MG MAMM DIAGNOSTIC 3D MARGARITA CAD Patient: RICHELLE PELAEZ Exam Date: 01/01/2022 : 1965 Gender:F Ordering : DR NORA LINDO M.D. Admission #: [id number] Family : Order #: [id number] CLICK HERE TO VIEW EXAM RADIOLOGY REPORT [...] breast cancer at age 75. LOCATION: [facility] BREAST COMPOSITION: Almost entirely fatty. FINDINGS: DIAGNOSTIC [...] M.D. on 01/01/2022 at 15:42 Normal [facility] TSHon 05-22-2019 TSH Qn 2.23 uIU/ml Normal 0.47-4.68 [facility] Comment on above: Performed By: #### 7 50, 800, 1000, 1005, 4500, 4520, 4575 #### [facility] Unless Otherwise Noted [address] [place] [address] / [facility] #4724/CLIA # [id number] VITAMIN B12on 05-22-2019 Cobalamin (Vitamin B12) [Mass/Vol] 713.0 pg/mL Normal 239.0-931.0 [facility] Comment on above: Performed By: #### 7 50, 800, 1000, 1005, 4500, 4520, 4575 #### [facility] Unless Otherwise Noted [address] [place] [address] / COLA #4724/CLIA # [id number] AFINION A1Con 05-19-2019 HbA1c (Bld) [Mass fraction] 5.6 G/DL Normal 4.5-6.0 [facility] Comment on above: Performed By: #### 7 50, 800, 1000, 1005, 4500, 4520, 4575 #### [facility] Unless Otherwise Noted [address] [place] [address] / COLA #4724/CLIA # [id number] Comprehensiveon 05-19-2019 Albumin [Mass/Vol] 4.4 g/dL Normal 3.5-5.0 [facility] Comment on above: Performed By: #### 7 50, 800, 1000, 1005, 4500, 4520, 4575 #### [facility] Unless Otherwise Noted [address] [place] [address] / COLA #4724/CLIA # [id number] ALP [Catalytic activity/Vol] 98.0 U/L Normal 38.0-126.0 [facility] Comment on above: Performed By: #### 7 50, 800, 1000, 1005, 4500, 4520, 4575 #### [facility] Unless Otherwise Noted [address] [place] [address] / COLA #4724/CLIA # [id number] ALT [Catalytic activity/Vol] 16.0 U/L Normal 13.0-69.0 [facility] Comment on above: Performed By: #### 7 50, 800, 1000, 1005, 4500, 4520, 4575 #### [facility] Unless Otherwise Noted [address] [place] [address] / COLA #4724/CLIA # [id number] Anion gap [Moles/Vol] 7.0 mmol/L Low 10.0-15.0 End [facility] Comment on above: Performed By: #### 7 50, 800, 1000, 1005, 4500, 4520, 4575 #### [facility] Unless Otherwise Noted [address] [place] [address] / COLA #4724/CLIA # [id number] AST [Catalytic activity/Vol] 39.0 U/L Normal 15.0-46.0 [facility] Comment on above: Performed By: #### 7 50, 800, 1000, 1005, 4500, 4520, 4575 #### [facility] Unless Otherwise Noted [address] [place] [address] / COLA #4724/CLIA # [id number] Bilirubin Ql (U) 0.40 mg/dL Normal 0.20-1.30 [facility] Comment on above: Performed By: #### 7 50, 800, 1000, 1005, 4500, 4520, 4575 #### [facility] Unless Otherwise Noted [address] [address] / COLA #4724/CLIA # [id number] BUN/Cre Ratio 18.8 Ratio Normal 7.0-27.0 Endocrine [facility] Comment on above: Performed By: #### 7 50, 800, 1000, 1005, 4500, 4520, 4575 #### [facility] Unless Otherwise Noted [address] [address] / COLA #4724/CLIA # [id number] Calcium [Mass/Vol] 9.6 mg/dL Normal 8.4-10.2 [facility] Comment on above: Performed By: #### 7 50, 800, 1000, 1005, 4500, 4520, 4575 #### [facility] Unless Otherwise Noted [address] [address] / COLA #4724/CLIA # [id number] Chloride [Moles/Vol] 107.0 mmol/L Normal 98.0-107.0 En [facility] Comment on above: Performed By: #### 7 50, 800, 1000, 1005, 4500, 4520, 4575 #### [facility] Unless Otherwise Noted [address] [address] / COLA #4724/CLIA # [id number] CO2 [Moles/Vol] 28.0 mmol/L Normal 22.0-30.0 Endocrin [facility] Comment on above: Performed By: #### 7 50, 800, 1000, 1005, 4500, 4520, 4575 #### [facility] Unless Otherwise Noted [address] [address] / COLA #4724/CLIA # [id number] Creatinine [Mass/Vol] 0.8 mg/dL Normal 0.5-1.0 End [facility] Comment on above: Performed By: #### 7 50, 800, 1000, 1005, 4500, 4520, 4575 #### [facility] Unless Otherwise Noted [address] [place] [address] / COLA #4724/CLIA # [id number] GFR/1.73 sq M predicted among blacks MDRD (S/P/Bld) [Vol rate/Area] 96.9 ml/m1.73 Normal [facility] Comment on above: Performed By: #### 7 50, 800, 1000, 1005, 4500, 4520, 4575 #### Endocrine [facility] Diabetes [facility] Unless Otherwise Noted [address] [place] [address] / COLA #4724/CLIA # [id number] GFR/1.73 sq M predicted among non-blacks MDRD (S/P/Bld) [Vol rate/Area] 80.1 ml/m1.73 Normal [facility] Comment on above: Performed By: #### 7 50, 800, 1000, 1005, 4500, 4520, 4575 #### [facility] Unless Otherwise Noted [address] [place] [address] / COLA #4724/CLIA # [id number] GFR/1.73 sq M predicted among non-blacks MDRD (S/P/Bld) [Vol rate/Area] 139.1 ml/m1.73 Normal [facility] Comment on above: Performed By: #### 7 50, 800, 1000, 1005, 4500, 4520, 4575 #### [facility] Unless Otherwise Noted [address] [address] / COLA #4724/CLIA # [id number] Glucose [Mass/Vol] 91.0 mg/dL Normal 74.0-106.0 [facility] Comment on above: Performed By: #### 7 50, 800, 1000, 1005, 4500, 4520, 4575 #### [facility] Unless Otherwise Noted [address] [address] / COLA #4724/CLIA # [id number] Potassium [Moles/Vol] 3.9 mmol/L Normal 3.5-5.1 End [facility] Comment on above: Performed By: #### 7 50, 800, 1000, 1005, 4500, 4520, 4575 #### [facility] Unless Otherwise Noted [address] [address] / COLA #4724/CLIA # [id number] Protein [Mass/Vol] 7.6 g/dL Normal 6.3-8.2 [facility] Comment on above: Performed By: #### 7 50, 800, 1000, 1005, 4500, 4520, 4575 #### [facility] Unless Otherwise Noted [address] [address] / COLA #4724/CLIA # [id number] Sodium [Moles/Vol] 142.0 mmol/L Normal 137.0-145.0 End [facility] Comment on above: Performed By: #### 7 50, 800, 1000, 1005, 4500, 4520, 4575 #### [facility] Unless Otherwise Noted [address] [address] / COLA #4724/CLIA # [id number] Urea nitrogen [Mass/Vol] 15.0 mg/dL Normal 7.0-17.0 [facility] Comment on above: Performed By: #### 7 50, 800, 1000, 1005, 4500, 4520, 4575 #### [facility] [place] Unless Otherwise Noted [address] [address] / COL[facility] #4724/CLIA # [id number] FT4on 05-19-2019 Free T4 [Mass/Vol] 1.10 ng/dL Normal 0.64-1.79 [facility] Comment on above: Performed By: #### 7 50, 800, 1000, 1005, 4500, 4520, 4575 #### [facility] Unless Otherwise Noted [address] [address] / COLA #4724/CLIA # [id number] Lipidson 05-19-2019 Cholesterol [Mass/Vol] 209.0 mg/dL High 0.0-199.0 [facility] Comment on above: Performed By: #### 7 50, 800, 1000, 1005, 4500, 4520, 4575 #### [facility] Unless Otherwise Noted [address] [address] / COLA #4724/CLIA # [id number] Cholesterol in HDL [Mass/Vol] 66.0 mg/dL High 40.0-60.0 [facility] Comment on above: Performed By: #### 7 50, 800, 1000, 1005, 4500, 4520, 4575 #### [facility] Unless Otherwise Noted [address] [address] / COLA #4724/CLIA # [id number] Cholesterol in LDL [Mass/Vol] 118.4 mg/dL High 0.0-100.0 [facility] Comment on above: Performed By: #### 7 50, 800, 1000, 1005, 4500, 4520, 4575 #### [facility] Unless Otherwise Noted [address] [address] / [facility] #4724/CLIA # [id number] Cholesterol in VLDL [Mass/Vol] 24.6 mg/dL Normal [facility] Comment on above: Performed By: #### 7 50, 800, 1000, 1005, 4500, 4520, 4575 #### [facility] Unless Otherwise Noted [address] [address] / [facility] #4724/CLIA # [id number] Cholesterol.total/Cho lesterol in HDL [Mass ratio] 3.2 {ratio} Normal [facility] Comment on above: Performed By: #### 7 50, 800, 1000, 1005, 4500, 4520, 4575 #### [facility] Unless Otherwise Noted [address] [address] / [facility] #4724/CLIA # [id number] Triglyceride [Mass/Vol] 123.0 mg/dL Normal 0.0-150.0 [facility] Comment on above: Performed By: #### 7 50, 800, 1000, 1005, 4500, 4520, 4575 #### [facility] Unless Otherwise Noted [address] [address] / COLA #7224/CLIA # [id number] NEW MICROALBUMINon 9 Creatinine (U) [Mass/Vol] 128.3 mg/dL Normal [facility] Comment on above: Performed By: #### 7 50, 800, 1000, 1005, 4500, 4520, 4575 #### [facility] Unless Otherwise Noted [address] [address] / COLA #4724/CLIA # [id number] Microalbumin 37.0 mg/L High 0.0-30.0 Endocrine [facility] Comment on above: Performed By: #### 7 50, 800, 1000, 1005, 4500, 4520, 4575 #### Endocrine and Diabetes [facility] Unless Otherwise Noted [address] [place] [address] / COLA #4724/CLIA # [id number] Urine A/C Ratio 28.8 mg/g Normal 0.0-30.0 [facility] Comment on above: Performed By: #### 7 50, 800, 1000, 1005, 4500, 4520, 4575 #### [facility] Unless Otherwise Noted [address] [place] [address] / COL[facility] #4724/CLIA # [id number] Vital Signs Date Time Vital Sign Value Performing Clinician Facility 01-12-2022 16:00-0500 Body height 157.48 cm Heath Silva Other [employer] Other 01-12-2022 16:00-0500 Body mass index (BMI) [Ratio] 45.17 kg/m2 Heath Silva Other [employer] Other 01-12-2022 16:00-0500 Body weight 112.04 kg Heath Silva Other [employer] Other 11-04-2021 10:00-0500 Body height 157.48 cm Heath Olexa Other [employer] Other 11-04-2021 10:00-0500 Body mass index (BMI) [Ratio] 46.82 kg/m2 Heath Olexa Other [employer] Other 11-04-2021 10:00-0500 Body weight 116.12 kg Heath Olexa Other [employer] Other 10-14-2021 14:30-0500 Body height 157.48 cm Heath Olexa Other [employer] Other 10-14-2021 14:30-0500 Body mass index (BMI) [Ratio] 46.16 kg/m2 Heath Olexa Other [employer] Other 10-14-2021 14:30-0500 Body weight 114.49 kg Heath Olexa Other [employer] Other 05-19-2019 18:58-0400 Body weight 107.1 Kg [facility] Comment on above: Performed By: #### 750, 800, 1000, 1005, 4500, 4520, 4575 #### [facility] Unless Otherwise Noted [address] [place] [address] / [facility] #4724/CLIA # [id number] Encounters Encounter Date Encounter Type Care Provider Facility Start: 07-24-2024 End: 07-24-2024 ambulatory JOSUE HINOJOSA Not Available Start: 07-04-2024 End: 07-04-2024 ambulatory DIEGO DUNNE Not Available Start: 04-27-2024 End: 04-27-2024 ambulatory JOSUE HINOJOSA Not Available Start: 03-03-2024 End: 03-04-2024 ambulatory [facility] Start: 01-26-2024 End: 01-26-2024 [...] Available Start: 11-15-2023 Orders Only Faheem willson [employer] Work Phone: [facility] Comment on above: Postablative hypothy roidism (Primary Dx) Start: 11-12-2023 End: 11-13-2023 ambulatory FAHEEM ROCK [facility] Start: 11-03-2023 End: 11-03-2023 ambulatory JOSUE HINOJOSA Not Available Start: 04-06-2023 Telephone encounter G Yuri Lindo MD Work Phone: Radiation Oncology Comment on above: Patient Question Start: 12-21-2022 End: 12-22-[address] NORA LINDO Facility:[facility] Start: 09-28-2022 End: 09-28-[address] CHACHA LEDBETTER Facility:[facility] Start: 09-02-2022 Encounter for genera l adult medical examination without abnormal findings DR CHACHA LEDBETTER [facility] Start: 08-28-2022 End: 08-29-[address] CHACHA LEDBETTER Facility:[facility] Start: 08-28-2022 End: 08-29-2022 Encounter for general adult medical examination without abnormal findings DR CHACHA LEDBETTER Facility:[facility] Start: 06-14-2022 Encounter for other preprocedural examination DR DOCTOR SCHULZ [facility] Start: 06-10-2022 End: 06-11-[address] CHACHA LEDBETTER Facility:[facility] Start: 06-10-2022 End: 06-11-2022 Encounter for other preprocedural examination DR CHACHA LEDBETTER Facility:[facility] Start: 02-03-2022 End: 02-03-2022 ambulatory Heath Olexa Other [employer] Other Start: 02-03-2022 Office outpatient vi sit 15 minutes Heath Olexa [facility] Start: 01-12-2022 End: 01-12-2022 ambulatory Heath Olexa Other [employer] Other Start: 01-12-2022 Office outpatient vi sit 15 minutes Heath Olexa [facility] Start: 01-01-2022 End: 01-02-[address] CHACHA LEDBETTER Facility:[facility] Start: 11-04-2021 End: 11-04-2021 ambulatory Heath Olexa Other [employer] Other Start: 11-04-2021 Office outpatient vi sit 15 minutes Heath Olexa [facility] Start: 10-14-2021 End: 10-14-2021 ambulatory Heath Olexa Other [employer] Other Start: 10-14-2021 Office outpatient vi sit 15 minutes Heath Olexa [facility] Start: 09-11-2021 End: 09-11-2021 ambulatory Heath Olexa Other [employer] Other Start: 09-11-2021 Telephone encounter Heath Olexa [facility] Start: 10-24-2018 End: 10-25-2018 Patient encounter procedure DEFAULT PHYSICIAN Facility:[facility] Start: 10-04-2018 Patient encounter procedure Faheem Rock [employer] Work Phone: [employer] Procedures Date Procedure Procedure Detail Performing Clinician Start: 11-12-2023 Microalbumin [Mass/v olume] in Urine by Test strip Faheem Rock [employer] Work Phone: Start: 11-15-2018 Mammography Faheem chahal [employer] Work Phone: Plan of Treatment Date Care Activity Detail Author Start: 11-12-2024 Urine screening for protein Urine Microalbumin [facility] Start: 09-03-2024 Adult BMI Screening Adult BMI Screen ing [facility] Start: 09-03-2024 Diabetic foot examination Diabetic Foot Exam [facility] Start: 09-03-2024 Tobacco Screening Tobacco Screening [facility] Start: 07-03-2024 End: 07-03-2024 Patient encounter procedure 07/03/2024 3:00 PM EDT Office Visit [facility] [address] [facility] [address] [place] [address] Chris Nielsen PA [address] [place] [address] [facility] Start: 03-03-2024 End: 03-03-2024 Patient encounter procedure 03/03/2024 11:45 AM EDT Office Visit [facility] [address] [place] [address] Nadia Sotomayor MD [address] [place] [address] [facility] Start: 01-26-2024 End: 01-26-2024 Patient encounter procedure 01/26/2024 4:15 PM EDT Procedure Visit [facility] [address] [place] [address] Josue Hinojoas DPM [address] [place] [address] [facility] Start: 01-10-2024 End: 11-15-2024 Thyroid profile includes TSH FT4 Thyroid profile includes TSH FT4 Lab Routine Postablative hypothyroidism Expected: 01/10/2024 (Approximate), Expires: 11/15/2024 [facility] Work Phone: Comment on above: Expected: 01/10/2024 (Approximate), Expires: 11/15/2024 Start: 07-09-2023 COVID-19 Vaccine ( season) COVID-19 Vaccine ( season) [facility] Start: 07-09-2023 Influenza vaccination [facility] Start: 11-08-2022 DEPRESSION ASSESSMENT DEPRESSION ASS ESSMENT [facility] Start: 01-16-2022 COVID-19 VACCINE (4 - Booster for Pfizer series) COVID-19 VACCINE (4 - Booster for Pfizer series) [facility] Start: 10-04-2021 DIABETES SCREEN DIABETES SCREEN [facility] Start: 11-15-2019 Screening for malign ant neoplasm of breast Mammogram [facility] Start: 2017 SHINGRIX VACCINE (1 of 2) SHINGRIX VACCINE (1 of 2) [facility] Start: 2012 COLOGUARD (FIT-DNA) COLOGUARD (FIT-D NA) [facility] Start: 2012 Colonoscopy COLONOSCOPY [facility] Start: 2012 COLORECTAL CANCER SCREENING COLORECTAL CANCER SCREENING [facility] Start: [address] COLONOGRAPHY [facility] Start: 2012 FECAL OCCULT BLOOD FECAL OCCULT BLOO D [facility] Start: 2012 LIPID SCREEN LIPID SCREEN [facility] Start: 2012 SIGMOIDOSCOPY SIGMOIDOSCOPY [facility] Start: 2007 Mammography MAMMOGRAM [facility] Start: 1997 HPV TESTING HPV TESTING [facility] Start: 1997 Screening for malign ant neoplasm of cervix [facility] Start: 1988 PAP TESTING PAP TESTING [facility] Start: 1988 Screening for malign ant neoplasm of cervix Pap Smear [facility] Start: 1986 Administration of varicella zoster vaccine Zoster (Shingles) Vaccine (1 of 2) [facility] Start: 1986 DTaP,Tdap and Td Vaccines (1 - Tdap) DTaP,Tdap and Td Vaccines (1 - Tdap) [facility] Start: 1986 Urine microalbumin profile DTAP,TDAP,TD (1 - Tdap) [facility] Start: 1985 HEPATITIS C SCREENING HEPATITIS C SC REENING [facility] Start: 1985 HIV SCREENING HIV SCREENING [facility] Start: 1979 Depression Screening Depression Scre ening [facility] Start: 1967 Glaucoma screening Diabetic Op hthalmology Exam [facility] Start: 1967 HEPATITIS B (1 of 3 - 3-dose series) HEPATITIS B (1 of 3 - 3-dose series) [facility] Start: 1965 Screening for malign ant neoplasm of colon [facility] Immunizations Immunization Date Immunization Notes Care Provider Fa reginaldo NEGATED: Highlighted row has not occurred!10-21-2018 influenza, injectable, quadrivalent, preservative free Faheemlida Rock [employer] Work Phone: [facility] Comment on above: Deferred: Patient Re fused Payers Date Payer Category Payer Private Health [facility] [id number] 2022-Present [phone] [address] [address] [place] [address] [id number] 2020 Unknown 1965 Unknown [id number] 2.16.840.1.886924.3.579. 2.647 1965 Unknown [id number] 2.16.840.1.707172.3.579. 2.593 1965 Unknown [id number] 2.16.840.1.024406.3.579. 2.593 1967 Unknown [id number] 2.16.840.1.268902.3.579. 2.593 1967 Unknown [id number] 2.16.840.1.527858.3.579. 2.593 1967 Unknown [id number] 2.16.840.1.602368.3.579. 2.593 1967 Unknown [id number] 2.16.840.1.999314.3.579. 2.1286 1967 Unknown [id number] 2.16.840.1.825220.3.579. 2.6 1965 Unknown [id number] 2.16.840.1.234696.3.579. 2.6 1965 Unknown [id number] 2.16.840.1.811929.3.579. 2.1258 1967 Unknown [id number] 2.16.840.1.443243.3.579. 2.1258 1967 Unknown [id number] 2.16.840.1.905607.3.579. 2.1258 1967 Unknown [id number] 2.16.840.1.633498.3.579. 2.1258 1967 Unknown [id number] 2.16.840.1.921491.3.579. 2.1258 1967 Unknown [id number] 2.16.840.1.038201.3.579. 2.1258 1967 Unknown [id number] 2.16.840.1.748180.3.579. 2.1259 1959 Unknown [id number] 2.16.840.1.033320.19 1959 Unknown [id number] Social History Date Type Detail Facility Start: 10-07-2018 End: 11-03-2023 Sex Assigned At [facility] [employer] Other Start: 09-22-2012 End: 04-27-2023 Tobacco smoking status NJIS Never smoked tobacco [facility] Start: 09-22-2012 End: 04-27-2023 Tobacco use and exposure Smokeless tobacco non-user [facility] Start: 06-25-2022 Alcohol intake Not Asked Iraida baron [facility] Start: 1965 Sex Assigned At Not on file [facility] Start: 09-03-2023 End: 11-03-2023 Alcohol intake Current drinker of alcohol (finding) [facility] Start: 10-07-2018 End: 11-03-2023 History of Social function [facility] Frequency of Alcohol Consumption Never [facility] Start: 11-02-2018 Alcohol Comment [facility] Start: 07-05-2023 Alcohol Comment caffeine intak e: 1-2 cups per day. [facility] Medical Equipment Procedure Code Equipment Code Equipment Origin al Text Equipment Identifier Dates TEST ONCE DAILY [id number] Start: 05-23-2019 Monitor blood [facility] daily [id number] Start: 11-03-2018 Goals Date Patient Goal Desired [...] scanned Op note documented in this encounter [facility] 04-06-2023 Miscellaneous Notes Formattin g of [...] Courtney Garcia LPN documented in this encounter [facility] 02-03-2022 Evaluation note Encounter Date Diagnosis [...] aid in pain relief at the knee. [employer] Other 03-07-2022 Evaluation note* Encounter Date Diagnosis [...] Other specified postprocedural states (ICD-10 - Z98.890) [employer] Other 12-28-2021 Evaluation note* Encounter Date Diagnosis [...] - Z98.890) Patient off work until 11/19/21 [employer] Other 12-07-2021 Evaluation note* Encounter Date Diagnosis [...] work for off work until next appointment [employer] Other Evaluation noteNo InformationNort [employer] Other Evaluation note* Diagnosis Postablative hypothyroidism- Primary Other postablative hypothyroidism documented in this encounter [employer] System[facility] note* Diagnosis Primary osteoarthritis, left ankle [...] knee arthroscopy, medial m enisecectomy. DOS 07/08/21 [employer] Other InstructionsNot on filedocumented in this encounter [employer] Summary Purpose Family History No Family History [...] section and content) DATE CREATED AUTHOR 10/27/2018 [facility] DATE CREATED AUTHOR AUTHOR'S ORGANIZ ATION 05/29/2019 [facility] DATE CREATED AUTHOR AUTHOR'S ORGANIZ ATION 01/13/2022 [facility] DATE CREATED AUTHOR AUTHOR'S ORGANIZ ATION 12/26/2022 [facility] DATE CREATED AUTHOR AUTHOR'S ORGANIZ ATION 04/16/2023 [facility] DATE CREATED AUTHOR AUTHOR'S ORGANIZ ATION 11/14/2023 [facility] DATE CREATED AUTHOR AUTHOR'S ORGANIZ ATION 03/05/2024 [facility] DATE CREATED AUTHOR AUTHOR'S ORGANIZ ATION 03/05/2024 [facility] DATE CREATED AUTHOR AUTHOR'S ORGANIZ ATION 07/26/2024 [facility] EPIC REASON FOR VISIT [...] or prosecute any alcohol or drug abuse patient.[facility] Care Teams (unrecognized sec tion and content) Machine Adjuster Leader Relationship Specialty Start Date End Date Chacha Ledbetter MD PCP - General Family Medicine 08/30/19 Machine Adjuster Leader Relationship Specialty Start Date End Date Chacha Ledbetter MD [address] [place] [id number] PCP - General Family Medicine 10/21/22 Machine Adjuster Leader Relationship Specialty Start Date End Date Chacha Ledbetter MD [address] [place] [id number] PCP - General Family Medicine 04/27/23 FOR [...] BE BASED ON THE PRIMARY CLINICAL RECORDS. [email or web address] [facility]. provides no warranty or guarantee of the accuracy or completeness of information in this document.
[2024-08-02 16:30] LABS: Anion Gap 10.2; BUN Creatinine Ratio 20.7; Calcium 9.6 mg/dL (8.5-10.1); Carbon Dioxide 27.5 mmol/L (21.0-32.0); Chloride 105 mmol/L (98-107); Estimated GFR (African America >60 (>=60); Estimated GFR (Non-African Ame >60 (>=60); Glucose 94 mg/dL (74-106); Potassium 3.7 mmol/L (3.5-5.1); Sodium 139 mmol/L (136-145)
== END 2024-08-02 15:46 | disposition home or self-care (01) ==
LOC: LAB 15:45
PROVIDERS: PCP Family Medicine; Visit Provider Family Medicine
DX: G43.909 Migraine, unspecified, not intractable, without status migrainosus (principal)
CPT/HCPCS: 36415; 80048

== ENCOUNTER 2024-09-30 14:13 | Outpatient (OUT) | payer OTHER, SELFPAY ==
--- OUTSIDE RECORDS SUMMARY | 2024-09-29 16:05 | XMS_ITS | CCD ---
Author Organization [facility] CliniSytn Care Team Providers Care Store Facility Technician Name Role Phone PHYSICIAN, DEFAULT Unavailable Unavailable [...] Care Unavailable HOY, DR BURNHAM Consulting Unavailable HOY, DR BURNHAM Attending Unavailable HOY, DR BURNHAM Admitting Unavailable HOY, DR BURNHAM Consulting Unavailable HOY, DR BURNHAM Attending Unavailable HOMichelle, DR BURNHAM Admitting Unavailable CRISTINA, DR BURNHAM Primary Care Unavailable ENGELER, DR NORA Zamorano Admitting Unavailable ENGELER, DR NORA Zamorano Attending Unavailable WEST, DR JETT Burns Consulting Unavailable CRISTINA, DR BURNHAM Primary Care Unavailable ENGSHANNAN, DR NORA Zamorano Consulting Unavailable Chacha Ledbetter MD Primary Care Provider [phone] FAHEEM ROCK Referring Unavailable CAHCHA LEDBETTER Primary Care Unavailable Chacha Ledbetter MD Primary Care Provider [phone] Chacha Ledbetter MD Primary Care Provider [phone] Diego Dunne DO Unavailable Chacha Ledbetter MD Primary Care Provider [phone] NADIA SOTOMAYOR Attending Unavailable CHACHA LEDBETTER Referring Unavailable CHACHA LEDBETTER Primary Care Unavailable FAHEEM ROCK Attending Unavailable CHACHA LEDBETTER Referring Unavailable CHACHA LEDBETTER Primary Care Unavailable CHACHA LEDBETTER Referring Unavailable CHACHA LEDBETTER Primary Care Unavailable CHACHA LEDBETTER Referring Unavailable CHACHA LEDBETTER Primary Care Unavailable JOSUE HINOJOSA Attending Unavailable JOSUE HINOJOSA Attending Unavailable JOSUE HINOJOSA Attending Unavailable JOSUE HINOJOSA Attending Unavailable JOSUE HINOJOSA Attending Unavailable DIEGO DUNNE Attending Unavailable JOSUE HINOJOSA Attending Unavailable JOSUE HINOJOSA Attending Unavailable JOSUE HINOJOSA Attending Unavailable PERI NIELSEN Attending Unavailable PERI NIELSEN Referring Unavailable JOSUE HINOJOSA Attending Unavailable JOSUE HINOJOSA Attending Unavailable Medications Current Medications Medication Drug Class(es) Dates Sig (Normalized) Sig (Original) [id number] actuat albuterol 0.09 mg/actuat metered dose inhaler (20 sources) beta2-Adrenergic Agonist Start: 02-13-2019 take 2 [...] 90 mcg/act inhaler every 4 (four) hours. Active amLODIPine 10 mg oral tablet (20 sources) Dihydropyridine Calcium Channel Thalia Start: 10-13-2020 take 1 tablet by mouth in the morning amLODIPine (Norvasc) 10 MG tablet Take 10 mg by mouth in the morning. 03/14/2023 Active Comment on above: TK 1 [...] Active doxepin hydrochloride 10 mg oral capsule (19 sources) Tricyclic Antidepressant Start: 07-04-2024 doxepin (SINEquan) 10 MG capsule Indications: Insomnia, unspecified type 2 po q hs 180 capsule 1 07/04/2024 Active take 1 capsule by mouth once george ly doxepin (SINEquan) 10 mg capsule Take 1 capsule (10 mg total) by mouth nightly. Active ferrous sulfate 325 mg oral tablet (3 sources) take 1 tablet by mouth every twenty-four hours Iron 325 (65 Fe) MG 1 tablet Orally Once a day Active fluocinonide 0.0005 mg/mg topical ointment (16 sources) Corticosteroid Start: 023 fluocinonide (Lidex) 0.05 % ointment APPLY TOPICALLY TO HANDS AND KNEES TWICE DAILY 03/10/2023 Active Iron (3 sources) take 1 tablet by mouth once daily Iron 325 (65 Fe) MG 1 tablet Orally Once a day Active levoFLOXacin 500 mg oral tablet (16 sources) Quinolone Antimicrobial Start: 022 take 1 tablet by mouth in the morning levoFLOXacin (Levaquin) 500 MG tablet Take 1 tablet by mouth in the morning. 10/22/2022 Active levothyroxine sodium 0.15 mg oral tablet (20 sources) l-Thyroxine Start: 024 levothyroxine (SYNTHROID, LEVOTHROID) 150 MCG tablet Indications: Postablative hypothyroidism TAKE 1 TABLET BY MOUTH EVERY MORNING EXCEPT TAKE 2 TABLETS ON SATURDAYS AND SUNDAYS 114 tablet 3 09/19/2024 Active Start: 04-16-2023 End: 09-19-2024 levothyroxine (SYNTHROID, LE VOTHROID) 150 MCG tablet Indications: Postablative hypothyroidism Take 1 tablet (150 mcg total) by mouth in the morning. 2 tabs on Saturdays and Sundays. 114 tablet 3 09/03/2023 09/19/2024 Discontinued Start: 09-19-2012 take 1 tablet by marcelina [...] hydrochloride 500 mg extended release oral tablet (20 sources) Biguanide Start: 09-03-2023 End: 08-21-2024 take 1 tablet by mouth once daily at dinner metFORMIN XR (GLUCOPHAGE XR) 500 mg 24 hr tablet Indications: Type 2 diabetes mellitus without complication, without long-term current use of insulin ([facility]) TAKE 1 TABLET(500 MG) BY MOUTH DAILY WITH DINNER 90 tablet 3 08/21/2024 Active Start: 10-21-2022 take 1 tablet by marcelina th at mealtime metFORMIN (Glucophage) 500 MG tablet Take 500 mg by mouth in the evening. Take with meals. 10/21/2022 Active Start: 03-14-2017 take 2 tablets [...] 2 TS PO BID WITH A MEAL multivitamin capsule (4 sources) take 1 capsule by mouth in the morning multivitamin capsule Take 1 capsule by mouth in the morning. Active take 1 capsule by mouth in the m orning multivitamin capsule Take 1 capsule by mouth in the morning. 0 Active Multivitamin preparation (6 sources) take 1 tablet by mouth once daily Multi Vitamin - 1 tablet Orally Once a day Active rimegepant 75 mg disintegrating oral tablet (15 sources) Start: 4 End: 4 take 1 tablet by mouth once daily as needed, then take 1 tablet by mouth every other day as needed Rimegepant Sulfate (Nurtec) 75 MG tablet dispersible Indications: Insomnia, unspecified type Take 75 mg by mouth Daily as needed (migraine qod) 15 tablet 2 07/04/2024 10/02/2024 Active simvastatin 20 mg oral tablet (20 sources) HMG-CoA Reductase Inhibitor Start: 3 take 1 tablet by mouth in the evening simvastatin (Zocor) 20 MG tablet Take 20 mg by mouth in the evening. 03/18/2023 Active take 1 tablet by marcelina th every twenty-four hours Simvastatin 20 MG 1 tablet in the evenin g Orally Once a day Active 24 hr verapamil hydrochloride 200 mg extended release oral capsule (5 sources) Calcium Channel Thalia Start: 04-18-2019 take 2 capsules by mouth once daily in the evening verapamil HCl ER (VERELAN PM) 200 mg capsule, [address] Indications: Essential hypertension Take 2 capsules (400 mg total) by mouth daily. 180 capsule 04/18/2019 Active Start: 09-19-2012 take 200 mg [...] / HYDROcodone bitartrate 5 mg oral tablet (11 sources) Opioid Agonist Start: 08-10-2024 End: 08-15-2024 take 1 tablet by mouth every six hours for pain HYDROcodone-aceta minophen ([place]) 5-325 MG tablet Indications: Exostosis of left foot Take 1 tablet by mouth every 6 (six) hours if needed for severe pain for up to 5 days 20 tablet 08/10/2024 08/15/2024 Start: 07-08-2021 take 1 tablet by marcelina th every four hours as needed for pain HYDROcodone-Acetaminophen 5-325 MG 1 tab let as needed for pain Orally up to every 4 hrs for 3 days Jun, Active amitriptyline hydrochloride 25 mg oral tablet (11 sources) Tricyclic Antidepressant Start: 09-19-2012 take 1 tablet by mouth once daily at bedtime amitriptyline 25 mg tablet Take 1 tablet by mouth daily at bedtime. 0 09/19/2012 Active take 1 tablet by mouth once stephen y amitriptyline (ELAVIL) 10 mg tablet Take 1 tablet (10 mg total) by mouth nightly. Active Comment on above: Take 1 tablet by marcelina th daily at bedtime. lisinopril 5 mg oral tablet (5 sources) Angiotensin Converting Enzyme Inhibitor Start: 2016 take 1 tablet by mouth once daily lisinopril (ZESTRIL, PRINIVIL) 5 mg tablet TK 1 T PO QD 1 04/11/2017 Active Comment on above: TK 1 T PO QD methylPREDNISolone (10 sources) Corticosteroid Start: 2021 End: 2023 methylPREDNISolone (Medrol Dospak) 4 MG tablets FOLLOW PACKAGE DIRECTIONS 09/11/2022 08/16/2024 Discontinued (Therapy completed) Start: 09-11-2022 methylPREDNISo lone (Medrol Dospak) 4 MG tablets FOLLOW PACKAGE DIRECTIONS 09/11/2022 Active Start: 09-11-2022 methylPREDNISo lone (Medrol Dospak) 4 MG tablets FOLLOW PACKAGE DIRECTIONS 0 09/11/2022 Active MULTIVITAMIN TABLET (1 source) Start: 07-08-2004 MULTIVITAMIN T ABLET predniSONE 10 mg oral tablet (10 sources) Start: 08-02-2023 End: 08-16-2024 take 2 tablets by mouth twice daily, [...] for 5 days. 35 tablet 1 08/02/2023 08/16/2024 Discontinued (Therapy completed) Triamcinolone (5 sources) Corticosteroid Start: 01-12-2022 Kenalog -40 mg Jan, 40 mg Start: 06-17-2021 Kenalog -40 mg Jun, 40 mg Problems Active Problems Problem Classification Problem Date Documented Date Episodic/Chronic Cancer of breast (9 sources) Intraductal carcinoma in situ of breast; Translations: [Intraductal carcinoma in situ of unspecified breast] Onset: 08-11-2013 08-11-2013 Chronic Complications of surgical procedures or medical care (6 sources) Postprocedural hypothyroidism; 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] Onset: 10-08-2018 11-15-2023 Chronic Diabetes mellitus without complication (10 sources) Type 2 diabetes mellitus without complications; Translations: [Type 2 diabetes mellitus] Onset: 05-21-2017 05-21-2017 Chronic Essential hypertension (4 sources) Hypertensive disorder; Translations: [Essential (primary) hypertension] Onset: 05-21-2017 05-21-2017 Chronic Menstrual disorders (1 source) Irregular periods; Translations: [Irregular menstruation, unspecified] Onset: 04-20-2013 04-20-2013 Chronic Osteoarthritis (16 sources) Osteoarthritis of left knee joint; Translations: [Unilateral primary osteoarthritis, left knee] Onset: 11-04-2021 Resolved: 02-03-2022 Chronic Other aftercare (6 sources) Surgical follow-up; Translations: [Encounter for follow-up examination after completed treatment for conditions other than malignant neoplasm] 08-17-2024 Episodic Other bone disease and musculoskeletal deformities (8 sources) Exostosis of left foot; Translations: [Other specified disorders of bone, ankle and foot] 08-10-2024 Episodic Other congenital anomalies (16 sources) Congenital deformity of toe; Translations: [Congenital deformity of feet, unspecified, unspecified foot] Onset: 04-30-2023 04-30-2023 Chronic Other connective tissue disease (8 sources) Pain in left foot; Translations: [Pain in left foot] 08-10-2024 Episodic Other female genital disorders (4 sources) Complex atypical endometrial hyperplasia; 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]] Onset: 10-07-2018 10-07-2018 Chronic Other non-traumatic joint disorders (2 sources) Pain in left knee; Translations: [Pain in joint, lower leg] 08-15-2024 Episodic Other upper respiratory infections (1 source) Acute sinusitis, unspecified; Translations: [ACUTE SINUSITIS UNSPECIFIED] Onset: 09-30-2022 Episodic Residual codes; unclassified (1 source) Family history of malignant neoplasm of breast; Translations: [FAMILY HX MALIG NEOPLASM OF BREAST] Onset: 12-25-2022 Episodic Thyroid disorders (4 sources) Hypothyroidism; Translations: [Hypothyroidism, unspecified] Onset: 10-08-2018 10-08-2018 Chronic Unclassified (3 sources) CONTACT W/AND (SUSP) EXPOS COVID-19; Translations: [CONTACT W/AND (SUSP) EXPOS COVID-19] Onset: 09-30-2022 Past or Other Problems Problem Classification Problem Date Documented Date Episodic/Chronic Cancer of breast (9 sources) Personal history of malignant neoplasm of breast; Translations: [History of malignant neoplasm of breast] Onset: 06-27-2014 Episodic Complications of surgical procedures or medical care (4 sources) Non-healing surgical wound; Translations: [Other complications of procedures, not elsewhere classified, initial encounter] Onset: 11-16-2018 11-16-2018 Episodic Joint disorders and dislocations; trauma-related (4 sources) Other tear of medial meniscus, current injury, left knee, subsequent encounter Onset: 10-14-2021 Resolved: 01-12-2022 Episodic Mood disorders (4 sources) Mood disorders Onset: 12-17-2017 12-17-2017 Mycoses (16 sources) Onychomycosis; Translations: [Tinea unguium] Onset: 04-30-2023 04-30-2023 Episodic Other connective tissue disease (16 sources) Pain in both feet; Translations: [Pain in right foot] Onset: 04-30-2023 04-30-2023 Episodic Other connective tissue disease (16 sources) Tendinitis of right posterior tibial tendon; Translations: [Posterior tibial tendinitis, right leg] Onset: 04-30-2023 04-30-2023 Episodic Other diseases of veins and lymphatics (16 sources) Vascular insufficiency; Translations: [Venous insufficiency (chronic) (peripheral)] Onset: 04-30-2023 04-30-2023 Episodic Other ear and sense organ disorders (1 source) Subjective tinnitus; Translations: [Tinnitus, unspecified ear] Onset: 07-08-2004 07-08-2004 Episodic Other skin disorders (16 sources) Callosity; Translations: [Corns and callosities] Onset: 04-30-2023 04-30-2023 Episodic Residual codes; unclassified (4 sources) Other specified postprocedural states Onset: 10-14-2021 Resolved: 01-12-2022 Episodic Respiratory failure; insufficiency; arrest (adult) (4 sources) Hypoxemic respiratory failure; Translations: [Respiratory failure, unspecified with hypoxia] Onset: 10-21-2018 10-21-2018 Episodic Unclassified (1 source) CONTACT W/AND (SUSP) EXPOS COVID-19; Translations: [CONTACT W/AND (SUSP) EXPOS COVID-19] Onset: 09-28-2022 Unclassified (4 sources) Onset: 05-10-2018 05-10-2018 Results Test Name Value Interpretation Reference Range Facility COMPREHENSIVE METABOLIC PANE Nehemiah 08-25-2024 Albumin [Mass/Vol] 4.1 g/dL Normal 3.2-5.3 [facility] Comment on above: Performed By: #### C LIZETH, THYR, 2-9 #### [facility] ([id number]) [address], [address] [place] [address] ALP [Catalytic activity/Vol] 81 U/L Normal 39-130 [facility] Comment on above: Performed By: #### C LIZETH THYR, 2132-07 #### [facility] ([id number]) [address], [address] [place] [address] ALT [Catalytic activity/Vol] 13 U/L Normal 0-31 [facility] Comment on above: Performed By: #### C LIZETH THYR, 2132-07 #### [facility] ([id number]) [address], [address] [place] [address] Anion gap [Moles/Vol] 10 mmol/L Normal 5-15 [facility] Comment on above: Performed By: #### C LIZETH THYR, 2132-07 #### [facility] ([id number]) [address], [address] [place] [address] AST [Catalytic activity/Vol] 22 U/L Normal 0-41 [facility] Comment on above: Performed By: #### C LIZETH, THYR, 2132-07 #### [facility] ([id number]) [address], [address] [place] [address] Bilirubin [Mass/Vol] 0.8 mg/dL Normal 0.3-1.2 [facility] Comment on above: Performed By: #### Smitha STANLEY THYR, 2132-07 #### [facility] ([id number]) [address], [address] [place] [address] Calcium [Mass/Vol] 9.0 mg/dL Normal 8.5-10.5 [facility] Comment on above: Performed By: #### C LIZETH THYR, 2132-07 #### [facility] ([id number]) [address], [address] [place] [address] Chloride [Moles/Vol] 104 mmol/L Normal 98-109 [facility] Comment on above: Performed By: #### Smitha STANLEY, THYR, 2132-07 #### [facility] ([id number]) [address], [address] [place] [address] CO2 [Moles/Vol] 27 mmol/L Normal 22-32 [facility] Comment on above: Performed By: #### C ASHLEY STANLEY, 2132-07 #### [facility] ([id number]) [address], [address] [place] [address] Creatinine [Mass/Vol] 0.90 mg/dL Normal 0.40-1.00 [facility] Comment on above: Result Comment: METH OD TRACEABLE TO IDMS STANDARD Performed By: #### C ASHLEY STANLEY, 2132-07 #### [facility] ([id number]) [address], [address] [place] [address] GFR/1.73 sq M.predicted among non-blacks MDRD (S/P/Bld) [Vol rate/Area] 75 mL/min/{1.73_m2} Normal >59 [facility] Comment on above: Result Comment: Reported eGFR is based on the CKD-EPI 2020 equation that does not use a race coefficient. Performed By: #### C ASHLEY STANLEY, 2132-07 #### [facility] ([id number]) [address], [address] [place] [address] Glucose [Mass/Vol] 101 mg/dL High 65-99 [facility] Comment on above: Performed By: #### C ASHLEY STANLEY, 2132-07 #### [facility] ([id number]) [address], [address] [place] [address] Potassium [Moles/Vol] 3.8 mmol/L Normal 3.5-5.0 [facility] Comment on above: Performed By: #### C ASHLEY STANLEY, 2132-07 #### [facility] ([id number]) [address], [address] [place] [address] Protein [Mass/Vol] 6.8 g/dL Normal 6.0-8.0 [facility] Comment on above: Performed By: #### C LIZETH THYLeni, 2132-07 #### [facility] ([id number]) [address], [address] [place] [address] Sodium [Moles/Vol] 141 mmol/L Normal 134-146 [facility] Comment on above: Performed By: #### C LIZETH THYLeni, 2132-07 #### [facility] ([id number]) [address], [address] [place] [address] Urea nitrogen [Mass/Vol] 22 mg/dL Normal 5-23 [facility] Comment on above: Performed By: #### C LIZETH THYLeni, 2132-07 #### [facility] ([id number]) [address], [address] [place] [address] MICROALBUMIN - ALBUMIN:CREAT ININE URINE RATIOon 08-25-2024 ALB/CREAT RATIO 12.6 mg/g creat Normal 0.0-30.0 [facility] Comment on above: Performed By: #### M ALBU #### [facility] ([id number]) [address], [address] [place] [address] Albumin DL <= 20 mg/L (U) [Mass/Vol] 2.3 mg/dL High 0.0-1.9 [facility] Comment on above: Performed By: #### M ALBU #### [facility] ([id number]) [address], [address] [place] [address] URINE CREAT 183.00 mg/dL Normal [facility] Comment on above: Performed By: #### M ALBU #### [facility] ([id number]) [address], [address] [place] [address] POCT Glucose Fingerstickon 1 Glucose [Mass/Vol] 145 mg/dL Abnormal 65 - 99 mg/dL [facility] Interpretation and review of laboratory results Abnormal [facility] POCT Hemoglobin A1con 2023 HbA1c (Bld) [Mass fraction] 5.7 % 4 - 7 % [facility] Interpretation and review of laboratory results Abnormal [facility] THYROID PROFILEon 08-25-2024 Free T4 [Mass/Vol] 1.23 ng/dL Normal 0.61-1.60 [facility] Comment on above: Performed By: #### C MP, THYR, 2132-07 #### [facility] ([id number]) [address], [address] [place] [address] TSH 2.05 uIU/mL Normal 0.49-4.67 [facility] Comment on above: Performed By: #### C MP, THYR, 2132-07 #### [facility] ([id number]) [address], [address] [place] [address] VITAMIN B12on 08-25-2024 Cobalamin (Vitamin B12) [Mass/Vol] 619 pg/mL Normal 180-914 [facility] Comment on above: Performed By: #### C , THYR, 2132-07 #### [facility] ([id number]) [address], [address] [place] [address] XR Foot - left 3 [facility] Result: Three views of the left foot: AP, MO, LAT were performed today in the office. Radiographs were read by myself and demonstrate: No evidence of acute fracture or dislocation. Normal joint spaces noted with no evidence of narrowing or osteophyte formation. Resection of the exostosis and bone along the end of the 3rd digit left. 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 Radiographs were read by myself and demonstrate: No evidence of acute fracture or dislocation. Narrowing to the tarsometatarsal joint left. 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 There is enlargement and prominence to the distal left 3rd digit [facility] Radiology Study observation (narrative) [facility] THYROID PROFILEon 03-03-2024 Free T4 [Mass/Vol] 1.40 ng/dL Normal 0.61-1.60 [facility] Comment on above: Performed By: #### T HYR #### [facility] ([id number]) [address], [address] [place] [address] TSH 0.10 uIU/mL Low 0.49-4.67 [facility] Comment on above: Performed By: #### T HYR #### [facility] ([id number]) [address] [place] [address] MICROALBUMIN - ALBUMIN:CREAT ININE URINE RATIOon 11-12-2023 ALB/CREAT RATIO 13.5 mg/g creat Normal 0.0-30.0 [facility] Comment on above: Performed By: #### M ALBU #### [facility] ([id number]) [address], [address] [place] [address] Albumin DL <= 20 mg/L (U) [Mass/Vol] 0.7 mg/dL Normal 0.0-1.9 [facility] Comment on above: Performed By: #### M ALBU #### [facility] ([id number]) [address], [address] [place] [address] URINE CREAT 51.79 mg/dL Normal [facility] Comment on above: Performed By: #### M ALBU #### [facility] ([id number]) [address], [address] [place] [address] THYROID PROFILEon 11-12-2023 Free T4 [Mass/Vol] 1.37 ng/dL Normal 0.61-1.60 [facility] Comment on above: Performed By: #### T HYR #### [facility] ([id number]) [address] [place] [address] TSH 0.06 uIU/mL Low 0.49-4.67 [facility] Comment on above: Performed By: #### T HYR #### [facility] ([id number]) [address] [place] [address] CNPNon 04-06-2023 CNPN Telephone (RADTSA) RICHELLE PELAEZ ([id number]) 1965 F Date Time Provider Department 04/06/23 [...] Fully Assessed Reason for Visit: Patient Question [5197] Prescriptions as of 04/06/2023 - amLODIPine (NORVASC) [...] Encounter Status:Closed by COURTNEY GARCIA on 04/06/23 [facility] MG MAMM DIAGNOSTIC 3D MARGARITA CA Don 12-21-2022 MG MAMM DIAGNOSTIC 3D MARGARITA CAD Patient: RICHELLE PELAEZ Exam Date: 12/21/2022 : 1965 Gender:F Ordering : DR NORA LINDO M.D. Admission #: [id number] Family : Order #: [id number] CLICK HERE TO VIEW EXAM RADIOLOGY REPORT [...] breast cancer at age 75. LOCATION: [facility] BREAST COMPOSITION: Almost entirely fatty. FINDINGS: DIAGNOSTIC [...] MD on 12/21/2022 at 13:48 Normal [facility] Covid-19 PCR (CVDTBH)on 09-09 SARS-CoV-2 (COVID-19) RNA ERIC+probe Ql (Unsp spec) Not detected Normal NOT DETECTED [facility] Comment on above: Result Comment: When diagnostic [...] for this test is supported by the Poultry Picker of Health and Human Service's declaration that [...] used). Performed By: #### C VDTBH #### [facility] [address] [place] [address] Dr. Lisbeth Ramirez INFLUENZA A AND B AGon 09-28 INFLUBANNER SEE BELOW Normal [facility] Comment on above: Result Comment: Nega tive for Flu A protein angiten. Infection due to Flu A cannot be ruled out. Flu A angiten in the sample may be below the detection limit of the test. Performed By: #### I NFLUAB #### [facility] [address] [place] [address] Dr. Lis[facility] BEL[facility] Normal [facility] Comment on above: Result Comment: Nega tive for Flu B protein antigen. Infection due to Flu B cannot be ruled out. Flu B antigen in the sample may be below the detection limit of the test. Performed By: #### I NFLUAB #### [facility] [address] [place] [address] Dr. Lisbeth Ramirez INFLUENZA A AG Negative Normal NEGATIVE SEE COMMENT [facility] Comment on above: Performed By: #### I NFLUAB #### [facility] [address] [place] [address] Dr. Lisbeth Ramirez INFLUENZA B AG Negative Normal NEGATIVE SEE COMMENT [facility] Comment on above: Performed By: #### I NFLUAB #### [facility] [address] [place] [address] Dr. Lisbeth Ramirez INTERNAL CONTROLS Within Normal Limits Normal Wi thin Normal Limits [facility] Comment on above: Performed By: #### I NFLUAB #### [facility] [address] [place] [address] Dr. Lisbeth Ramirez INSULINon 08-29-2022 Insulin 30.4 uIU/mL Critically high 2.6-24.9 [facility] [facility] Comment on above: Performed By: #### I NSULIN #### [facility] [place] [facility] [address] [place] [address] Dr. Lisbeth Ramirez CBC AUTO DIFFon 08-28-2022 BASO # 0.1 103/ul Normal 0.0-0.1 [facility] Comment on above: Performed By: #### C BC #### [facility] [place] [facility] [address] [place] [address] Dr. Lisbeth Ramirez Basophils/100 WBC (Bld) 0.8 % Normal 0.2-2.0 [facility] Comment on above: Performed By: #### C BC #### [facility] [place] [facility] [address] [place] [address] Dr. Lisbeth Ramirez EO # 0.2 103/ul Normal 0.0-0.7 [facility] Comment on above: Performed By: #### C BC #### [facility] [place] [facility] [address] [place] [address] Dr. Lisbeth Ramirez Eosinophils/100 WBC (Bld) 2.5 % Normal 0.9-7.0 [facility] Comment on above: Performed By: #### C BC #### [facility] [place] [facility] [address] [place] [address] Dr. Lisbeth Ramirez Erythrocyte distribution width (RBC) [Ratio] 13.0 % Normal 11.0-15.0 [facility] Comment on above: Performed By: #### C BC #### [facility] [place] [facility] [address] [place] [address] Dr. Lisbeth Ramirez Hematocrit (Bld) [Volume fraction] 42.1 % Normal 36.0-48.0 [facility] Comment on above: Performed By: #### C BC #### [facility] [place] [facility] [address] [place] [address] Dr. Lisbeth Ramirez Hemoglobin (Bld) [Mass/Vol] 14.0 g/dL Normal 12.0-16.0 [facility] Comment on above: Performed By: #### C BC #### [facility] [place] [facility] [address] [place] [address] Dr. Lisbeth Ramirez IG # 0.02 10e3/ul Normal 0.00-0.03 [facility] Comment on above: Performed By: #### C BC #### [facility] [place] [facility] [address] [place] [address] Dr. Lisbeth Ramirez IG % 0.2 % Normal 0.0-0.5 [facility] Comment on above: Performed By: #### C BC #### [facility] [place] [facility] [address] [place] [address] Dr. Lisbeth Ramirez LYMPH # 1.8 103/ul Normal 1.2-3.8 [facility] Comment on above: Performed By: #### C BC #### [facility] [place] [facility] [address] [place] [address] Dr. Lisbeth Ramirez Lymphocytes/100 WBC (Bld) 20.9 % Normal 20.5-60.0 [facility] Comment on above: Performed By: #### C BC #### [facility] [place] [facility] [address] [place] [address] Dr. Lisbeth Ramirez MANUAL DIFF REQ NO Normal [facility] Comment on above: Performed By: #### C BC #### [facility] [place] [facility] [address] [address] [address] Lisbeth Ramirez MCH (RBC) [Entitic mass] 28.7 pg Normal 26.7-34.0 [facility] Comment on above: Performed By: #### C BC #### [facility] [place] [facility] [address] [place] [address] Dr. Lisbeth Ramirez MCHC (RBC) [Mass/Vol] 33.3 g/dL Normal 29.9-35.2 [facility] [place] [facility] Comment on above: Performed By: #### C BC #### [facility] [place] [facility] [address] [place] [address] Dr. Lisbeth Ramirez MCV (RBC) [Entitic vol] 86.4 fL Normal 81.0-99.0 [facility] Comment on above: Performed By: #### C BC #### [facility] [place] [facility] [address] [place] [address] Dr. Lisbeth Ramirez MONO # 0.8 103/ul Normal 0.3-0.8 [facility] [place] [facility] Comment on above: Performed By: #### C BC #### [facility] [address] [place] [address] Dr. Lisbeth Ramirez Monocytes/100 WBC (Bld) 8.8 % Normal 1.7-12.0 [facility] Comment on above: Performed By: #### C BC #### [facility] [place] [facility] [address] [place] [address] Dr. Lisbeth Ramirez NEUT # 5.8 103/ul Normal 1.4-6.5 [facility] [place] [facility] Comment on above: Performed By: #### C BC #### [facility] [address] [place] [address] Dr. Lisbeth Ramirez Neutrophils/100 WBC (Bld) 66.8 % Normal 43.0-75.0 [facility] Comment on above: Performed By: #### C BC #### [facility] [address] [place] [address] Dr. Lisbeth Ramirez Platelet mean volume (Bld) [Entitic vol] 10.5 fL Normal 9.5-13.5 [facility] Comment on above: Performed By: #### C BC #### [facility] [address] [address] [address] Lisbeth Ramirez PLT 222 103/ul Normal 150-450 [facility] Comment on above: Performed By: #### C BC #### [facility] [place] [facility] [address] [id number] [address] Lisbeth Ramirez RBC 4.87 106/ul Normal 4.20-5.40 [facility] Comment on above: Performed By: #### C BC #### [facility] [place] [facility] [address] [address] [address] Lisbeth Ramirez WBC 8.7 103/ul Normal 4.0-11.0 [facility] Comment on above: Performed By: #### C BC #### [facility] [address] [address] [address] Lisbeth Ramirez FREE THYROXINE INDEX T7on FTI 3.80 Normal 1.30-4.50 [facility] Comment on above: Performed By: #### T SH, CMP, LIPID, T7 ####[facility] [place] [facility] [address] [place], [place] [address]IvDr. Lisbeth Ramirez T3U 33.0 % Normal 30.0-39.0 [facility] Comment on above: Performed By: #### T SH, CMP, LIPID, T7 ####[facility] [place] [facility] [address] [place], [place] [address]VdDr. Lisbeth Ramirez T4 [Mass/Vol] 11.50 ug/dL Normal 4.80-13.90 [facility] Comment on above: Performed By: #### T SH, CMP, LIPID, T7 ####[facility] [place] [facility] [address] [place], [place] [address]AvDr. Lisbeth Ramirez GLYCOHEMOGLOBIN A1Con 2021 ADA RECOMMENDATION SEE BELOW Normal [facility] Comment on above: Result Comment: ADA RECOMMENDED LIMIT 4.0 - 6.0 ADA THERAPEUTIC TARGET < 7.0 ACTION SUGGESTED > 7.0 Performed By: #### A 1C #### [facility] [place] [facility] [address] [address] [address] Lisbeth Ramirez Glucose [Mass/Vol] 105 mg/dL Normal [facility] Comment on above: Performed By: #### A 1C #### [facility] [place] [facility] [address] [id number] Lisbeth Ramirez HbA1c (Bld) [Mass fraction] 5.3 % Normal 4.5-6.2 [facility] Comment on above: Performed By: #### A 1C #### [facility] [place] [facility] [address] [id number] Lisbeth Ramirez IRONon 08-28-2022 Iron [Mass/Vol] 54.0 ug/dL Normal 50.0-170.0 [facility] Comment on above: Performed By: #### I DAGO #### [facility] [address] [address] [address] Lisbeth Ramirez LIPID PROFILEon 08-28-2022 CHOL-HDL RATIO NORM SEE BELOW Normal [facility] Comment on above: Result Comment: 3.3 - 4.4 LOW RISK 4.4 - 7.1 AVERAGE RISK 7.1 - 11.0 MODERATE RISK >11.0 HIGH RISK Performed By: #### T SH, CMP, LIPID, T7 ####[facility] [place] [facility] [address] [id number] Ramirez Cholesterol [Mass/Vol] 187 mg/dL Normal <=200 [facility] Comment on above: Performed By: #### T SH, CMP, LIPID, T7 ####[facility] [place] [facility] [address] [id number] Ramirez Cholesterol in HDL [Mass/Vol] 67 mg/dL Critically high 40-60 [facility] Comment on above: Performed By: #### T SH, CMP, LIPID, T7 ####[facility] [place] [facility] [address] [place] [id number] Ramirez Cholesterol in LDL [Mass/Vol] 95.8 mg/dL Normal [facility] Comment on above: Performed By: #### T SH, CMP, LIPID, T7 ####[facility] [place] [facility] [address] [place] [id number] Ramirez Cholesterol.total/Ch olesterol in HDL [Mass ratio] 2.8 {ratio} Normal [facility] Comment on above: Performed By: #### T SH, CMP, LIPID, T7 ####[facility] [place] [facility] [address] [address]Dr. Lisbeth Ramirez HDL NORMAL > or = 60 mg/dl - LOW CARDIOVASCULAR RISK <40 mg/dl - HIGH CARDIOVASCULAR RISK Normal [facility] Comment on above: Performed By: #### T SH, CMP, LIPID, T7 ####[facility] [place] [facility] [address] [address]Dr. Lisbeth Ramirez LDL CALC NORMAL SEE BELOW Normal [facility] Comment on above: Result Comment: <100 mg/dl OPTIMAL 100 - 129 mg/dl NEAR OR ABOVE OPTIMAL 130 - 159 mg/dl BORDERLINE HIGH 160 - 189 mg/dl HIGH >190 mg/dl VERY HIGH Performed By: #### T SH, CMP, LIPID, T7 ####[facility] [place] [facility] [address] [address]Dr. Lisbeth Ramirez Triglyceride [Mass/Vol] 121 mg/dL Normal <=150 [facility] Comment on above: Performed By: #### T SH, CMP, LIPID, T7 ####[facility] [place] [facility] [address] [address]Dr. Lisbeth Ramirez VLDL CALC 24.2 mg/dL Normal [facility] Comment on above: Performed By: #### T SH, CMP, LIPID, T7 ####[facility] [place] [facility] [address] [address]Dr. Lisbeth Ramirez PROF 14(COMP METB)on 022 Albumin [Mass/Vol] 4.1 g/dL Normal 3.4-5.0 [facility] Comment on above: Performed By: #### T SH, CMP, LIPID, T7 ####[facility] [place] [facility] [address] [address]Dr. Lisbeth Ramirez Albumin/Globulin [Mass ratio] 0.9 {ratio} Normal [facility] Comment on above: Performed By: #### T SH, CMP, LIPID, T7 ####[facility] [place] [facility] [address] [address]Dr. Lisbeth Ramirez ALP [Catalytic activity/Vol] 94 U/L Normal 46-116 [facility] [place] [facility] Comment on above: Performed By: #### T SH, CMP, LIPID, T7 ####[facility] [place] [facility] [address] [address]Dr. Lisbeth Ramirez ALT [Catalytic activity/Vol] 13 U/L Critically low 14-59 [facility] [place] [facility] Comment on above: Performed By: #### T SH, CMP, LIPID, T7 ####[facility] [place] [facility] [address] [address]Dr. Lisbeth Ramirez Anion gap [Moles/Vol] 11.4 mmol/L Normal [facility] Comment on above: Performed By: #### T SH, CMP, LIPID, T7 ####[facility] [place] [facility] [address] [address]Dr. Lisbeth Ramirez AST [Catalytic activity/Vol] 23 U/L Normal 15-37 [facility] [place] [facility] Comment on above: Performed By: #### T SH, CMP, LIPID, T7 ####[facility] [place] [facility] [address] [address]Dr. Lisbeth Ramirez Bilirubin [Mass/Vol] 0.7 mg/dL Normal 0.2-1.0 [facility] Comment on above: Performed By: #### T SH, CMP, LIPID, T7 ####[facility] [place] [facility] [address] [address]Dr. Lisbeth Ramirez Calcium [Mass/Vol] 9.5 mg/dL Normal 8.5-10.1 [facility] Comment on above: Performed By: #### T SH, CMP, LIPID, T7 ####[facility] [place] [facility] [address] [address]Dr. Lisbeth Ramirez Chloride [Moles/Vol] 104 mmol/L Normal 98-107 [facility] [place] [facility] Comment on above: Performed By: #### T SH, CMP, LIPID, T7 ####[facility] [place] [facility] [address] [address]Dr. Lisbeth Ramirez CO2 [Moles/Vol] 25.9 mmol/L Normal 21.0-32.0 [facility] Comment on above: Performed By: #### T SH, CMP, LIPID, T7 ####[facility] [place] [facility] [address] [address]Dr. Lisbeth Ramirez Creatinine [Mass/Vol] 0.67 mg/dL Normal 0.55-1.02 [facility] Comment on above: Performed By: #### T SH, CMP, LIPID, T7 ####[facility] [place] [facility] [address] [address]Dr. Lisbeth James EGFR-AF BURKINAN >60 Normal >=60 [facility] Comment on above: Performed By: #### T SH, CMP, LIPID, T7 ####[facility] [place] [facility] [address] [address]Dr. Lisbeth James EGFR-NON AF BURKINAN >60 Normal >=60 [facility] Comment on above: Performed By: #### T SH, CMP, LIPID, T7 ####[facility] [place] [facility] [address] [address]Dr. Lisbeth James Globulin (S) [Mass/Vol] 4.2 g/dL Normal [facility] Comment on above: Performed By: #### T SH, CMP, LIPID, T7 ####[facility] [place] [facility] [address] [place], [place] [address]Dr. Lisbeth James Glucose [Mass/Vol] 103 mg/dL Normal 74-106 [facility] Comment on above: Performed By: #### T SH, CMP, LIPID, T7 ####[facility] [place] [facility] [address] [address]Dr. Lisbeth Ramirez Potassium [Moles/Vol] 3.6 mmol/L Normal 3.5-5.1 [facility] Comment on above: Performed By: #### T SH, CMP, LIPID, T7 ####[facility] [place] [facility] [address] [place], [place] [address]Dr. Davidajorge Ramirez Protein [Mass/Vol] 8.3 g/dL Critically high 6.4-8.2 [facility] Comment on above: Performed By: #### T SH, CMP, LIPID, T7 ####[facility] [place] [facility] [address] [address]Dr. Lisbeth Ramirez Sodium [Moles/Vol] 138 mmol/L Normal 136-145 [facility] Comment on above: Performed By: #### T SH, CMP, LIPID, T7 ####[facility] [place] [facility] [address] [address]Dr. Lisbeth Ramirez Urea nitrogen [Mass/Vol] 12.0 mg/dL Normal 7.0-18.0 [facility] Comment on above: Performed By: #### T SH, CMP, LIPID, T7 ####[facility] [place] [facility] [address] [address]Dr. Lisbeth Ramirez Urea nitrogen/Creatinine [Mass ratio] 17.9 mg/mg Normal [facility] Comment on above: Performed By: #### T SH, CMP, LIPID, T7 ####[facility] [place] [facility] [address] [address]Dr. Lisbeth Ramirez TSHon 08-28-2022 TSH 0.572 uIU/mL Normal 0.358-3.740 [facility] Comment on above: Performed By: #### T SH, CMP, LIPID, T7 ####[facility] [place] [facility] [address] [address]Dr. 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 Lisbeth Ramirez Clarity (U) CLEAR Normal CLEAR [facility] Comment on above: Performed By: #### U ACSIND, UMICRO #### [facility] [place] [facility] [address] [address] [address] Lisbeth Ramirez Color (U) YELLOW Normal YELLOW [facility] Comment on above: Performed By: #### U ACSIND, UMICRO #### [facility] [place] [facility] [address] [address] [address] Lisbeth Ramirez Glucose Ql (U) Negative Normal NEGATIVE [facility] Comment on above: Performed By: #### U ACSIND, UMICRO #### [facility] [place] [facility] [address] [address] [address] Lisbeth Ramirez Hemoglobin Ql (U) MODERATE Abnormal NEGATIVE [facility] Comment on above: Performed By: #### U ACSIND, UMICRO #### [facility] [place] [facility] [address] [address] [address] Lisbeth Ramirez Ketones Ql (U) Negative Normal NEGATIVE [facility] Comment on above: Performed By: #### U ACSIND, UMICRO #### [facility] [address] [address] [address] Lisbeth Ramirez LEUKOCYTES TRACE Abnormal NEGATIVE [facility] Comment on above: Performed By: #### U ACSIND, UMICRO #### [facility] [place] [facility] [address] [place] [address] Dr. Lisbeth Ramirez Nitrite Ql (U) Negative Normal NEGATIVE [facility] Comment on above: Performed By: #### U ACSBLAISE ICRO #### [facility] [place] [facility] [address] [place] [address] Dr. Lisbeth Ramirez pH (U) 6.0 [pH] Normal 5-9 [facility] Comment on above: Performed By: #### U ACSBLAISE, ICRO #### [facility] [address] [place] [address] Dr. Lisbeth Ramirez SPEC GRAVITY 1.025 Normal 1.005-<=1.025 [facility] Comment on above: Performed By: #### U ACSBLAISE UMICRO #### [facility] [address] [place] [address] Dr. Lisbeth Ramirez UA PROTEIN Negative Normal NEGATIVE/ TRACE [facility] Comment on above: Performed By: #### U ACSBLAISE, UMICRO #### [facility] [address] [place] [address] Dr. Lisbeth Ramirez UR MICRO IND INDICATED Normal [facility] Comment on above: Performed By: #### U ACSBLAISE, UMICRO #### [facility] [address] [place] [address] Dr. Lisbeth Ramirez Urobilinogen Qn (U) 0.2 {Ricci'U}/dL Normal 0.2 - 1. 0 [facility] Comment on above: Performed By: #### U ACSIND, UMICRO #### [facility] [address] [place] [address] Dr. Lisbeth Ramirez URINE MICROSCOPIC ONLYon BACTERIA NONE SEEN Normal NONE SEEN [facility] Comment on above: Performed By: #### U ACSIND, UMICRO #### [facility] [address] [place] [address] Dr. Lisbeth Ramirez Bacteria identified Cx Nom (U) NOT INDICATED Normal [facility] Comment on above: Performed By: #### U ACSIND, UMICRO #### [facility] [address] [place] [address] Dr. Lisbeth Ramirez CAST NONE SEEN Normal NONE SEEN [facility] Comment on above: Performed By: #### U ACSIND, UMICRO #### [facility] [address] [place] [address] Dr. Lisbeth Ramirez Crystals LM Nom (Urine sed) NONE SEEN Normal NONE SEEN [facility] Comment on above: Performed By: #### U ACSIND UMICRO #### [facility] [address] [place] [address] Dr. Lisbeth Ramirez Epithelial cells LM Ql (Urine sed) FEW Abnormal NONE SEEN /RARE [facility] Comment on above: Performed By: #### U ACSBLAISE, UMICRO #### [facility] [address] [place] [address] Dr. Lisbeth Ramirez MUCOUS NONE SEEN Normal NONE SEEN [facility] Comment on above: Performed By: #### U ACSIND, UMICRO #### [facility] [address] [place] [address] Dr. Lisbeth Ramirez RBC 2-5 Abnormal 0-2 [facility] Comment on above: Performed By: #### U ACSIND, UMICRO #### [facility] [address] [place] [address] Dr. Lisbeth Ramirez WBC 0-2 Abnormal NONE SEEN [facility] Comment on above: Performed By: #### U ACSIND, UMICRO #### [facility] [address] [address] [address] Lisbeth Ramirez XR knee LT 2Von 01-12-2022 XR knee LT 2V [facility] [address] [place] [address] XRay Report Signed Patient: Richelle Pelaez MR#: [id number] : 1965 Acct:[id number] Age/Sex: 56 / F ADM Date: 01/12/22 Loc: [facility] Room: Type: [facility] CLI Attending Dr: Heath Silva MD Ordering Provider: [...] Carney Jr., M.D.01/12/2022 4:14 PM Dictation Location: [place] [address] Transcribed By: [facility] 01/12/22 1614 Dictated By: Andrea Carney Jr, MD 01/12/22 1608 Signed By: 01/12/22 1614 Normal [facility] MG [facility] DIAGNOSTIC 3D MARGARITA CA Don 01-01-2022 MG [facility]AMM DIAGNOSTIC 3D MARGARITA CAD Patient: RICHELLE PELAEZ Exam Date: 01/01/2022 : 1965 Gender:F Ordering : DR NORA LINDO M.D. Admission #: [id number] Family : Order #: [id number] CLICK HERE TO VIEW EXAM RADIOLOGY REPORT [...] breast cancer at age 75. LOCATION: [facility] BREAST COMPOSITION: Almost entirely fatty. FINDINGS: DIAGNOSTIC [...] M.D. on 01/01/2022 at 15:42 Normal [facility] TSHon 05-22-2019 TSH Qn 2.23 uIU/ml Normal 0.47-4.68 [facility] Comment on above: Performed By: #### 7 50, 800, 1000, 1005, 4500, 4520, 4575 #### [facility] Unless Otherwise Noted [address] [place] [address] / [facility] #4724/CLIA # [id number] VITAMIN B12on 05-22-2019 Cobalamin (Vitamin B12) [Mass/Vol] 713.0 pg/mL Normal 239.0-931.0 [facility] Comment on above: Performed By: #### 7 50, 800, 1000, 1005, 4500, 4520, 4575 #### [facility] Unless Otherwise Noted [address] [address] / [facility] #4724/CLIA # [id number] AFINION [facility] 05-19-2019 HbA1c (Bld) [Mass fraction] 5.6 G/DL Normal 4.5-6.0 [facility] Comment on above: Performed By: #### 7 50, 800, 1000, 1005, 4500, 4520, 4575 #### [facility] Unless Otherwise Noted [address] [address] / [facility] #4724/CLIA # [id number] [facility] Albumin [Mass/Vol] 4.4 g/dL Normal 3.5-5.0 [facility] Comment on above: Performed By: #### 7 50, 800, 1000, 1005, 4500, 4520, 4575 #### [facility] Unless Otherwise Noted [address] [address] / [facility] #4724/CLIA # [id number] ALP [Catalytic activity/Vol] 98.0 U/L Normal 38.0-126.0 [facility] Comment on above: Performed By: #### 7 50, 800, 1000, 1005, 4500, 4520, 4575 #### [facility] Unless Otherwise Noted [address] [address] / [facility] #4724/CLIA # [id number] ALT [Catalytic activity/Vol] 16.0 U/L Normal 13.0-69.0 [facility] Comment on above: Performed By: #### 7 50, 800, 1000, 1005, 4500, 4520, 4575 #### [facility] Unless Otherwise Noted [address] [address] / [facility] #4724/CLIA # [id number] Anion gap [Moles/Vol] 7.0 mmol/L Low 10.0-15.0 [facility] Comment on above: Performed By: #### 7 50, 800, 1000, 1005, 4500, 4520, 4575 #### [facility] Unless Otherwise Noted [address] / [facility] #4724/CLIA # [id number] AST [Catalytic activity/Vol] 39.0 U/L Normal 15.0-46.0 [facility] Comment on above: Performed By: #### 7 50, 800, 1000, 1005, 4500, 4520, 4575 #### [facility] Unless Otherwise Noted [address] / [facility] #4724/CLIA # [id number] Bilirubin Ql (U) 0.40 mg/dL Normal 0.20-1.30 [facility] Comment on above: Performed By: #### 7 50, 800, 1000, 1005, 4500, 4520, 4575 #### [facility] Unless Otherwise Noted [address] / [facility] #4724/CLIA # [id number] BUN/Cre Ratio 18.8 Ratio Normal 7.0-27.0 [facility] Comment on above: Performed By: #### 7 50, 800, 1000, 1005, 4500, 4520, 4575 #### [facility] Unless Otherwise Noted [address] / [facility] #4724/CLIA # [id number] Calcium [Mass/Vol] 9.6 mg/dL Normal 8.4-10.2 [facility] Comment on above: Performed By: #### 7 50, 800, 1000, 1005, 4500, 4520, 4575 #### [facility] Unless Otherwise Noted [address] [address] / [facility] #4724/CLIA # [id number] Chloride [Moles/Vol] 107.0 mmol/L Normal 98.0-107.0 [facility] Comment on above: Performed By: #### 7 50, 800, 1000, 1005, 4500, 4520, 4575 #### [facility] Unless Otherwise Noted [address] [address] / [facility] #4724/CLIA # [id number] CO2 [Moles/Vol] 28.0 mmol/L Normal 22.0-30.0 [facility] Comment on above: Performed By: #### 7 50, 800, 1000, 1005, 4500, 4520, 4575 #### [facility] Unless Otherwise Noted [address] [address] / [facility] #4724/CLIA # [id number] Creatinine [Mass/Vol] 0.8 mg/dL Normal 0.5-1.0 [facility] Comment on above: Performed By: #### 7 50, 800, 1000, 1005, 4500, 4520, 4575 #### [facility] Unless Otherwise Noted [address] [address] / COLA #4724/CLIA # [id number] GFR/1.73 sq M predicted among blacks MDRD (S/P/Bld) [Vol rate/Area] 96.9 ml/m1.73 Normal [facility] Comment on above: Performed By: #### 7 50, 800, 1000, 1005, 4500, 4520, 4575 #### [facility] Unless Otherwise Noted [address] [address] / COLA #4724/CLIA # [id number] GFR/1.73 sq M predicted among non-blacks MDRD (S/P/Bld) [Vol rate/Area] 80.1 ml/m1.73 Normal [facility] Comment on above: Performed By: #### 7 50, 800, 1000, 1005, 4500, 4520, 4575 #### [facility] Unless Otherwise Noted [address] [address] / COLA #4724/CLIA # [id number] GFR/1.73 sq M predicted among non-blacks MDRD (S/P/Bld) [Vol rate/Area] 139.1 ml/m1.73 Normal [facility] Comment on above: Performed By: #### 7 50, 800, 1000, 1005, 4500, 4520, 4575 #### [facility] Unless Otherwise Noted 2099 [place] [address] / COLA #4724/CLIA # [id number] Glucose [Mass/Vol] 91.0 mg/dL Normal 74.0-106.0 [facility] Comment on above: Performed By: #### 7 50, 800, 1000, 1005, 4500, 4520, 4575 #### [facility] Unless Otherwise Noted [address] [address] / COLA #4724/CLIA # [id number] Potassium [Moles/Vol] 3.9 mmol/L Normal 3.5-5.1 [facility] Comment on above: Performed By: #### 7 50, 800, 1000, 1005, 4500, 4520, 4575 #### [facility] Unless Otherwise Noted [address] [address] / COLA #4724/CLIA # [id number] Protein [Mass/Vol] 7.6 g/dL Normal 6.3-8.2 [facility] Comment on above: Performed By: #### 7 50, 800, 1000, 1005, 4500, 4520, 4575 #### [facility] Unless Otherwise Noted [address] [address] / COLA #4724/CLIA # [id number] Sodium [Moles/Vol] 142.0 mmol/L Normal 137.0-145.0 [facility] Comment on above: Performed By: #### 7 50, 800, 1000, 1005, 4500, 4520, 4575 #### [facility] Unless Otherwise Noted [address] [address] / COLA #4724/CLIA # [id number] Urea nitrogen [Mass/Vol] 15.0 mg/dL Normal 7.0-17.0 [facility] Comment on above: Performed By: #### 7 50, 800, 1000, 1005, 4500, 4520, 4575 #### [facility] Unless Otherwise Noted [address] [address] / COLA #4724/CLIA # [id number] 4on 05-19-2019 Free T4 [Mass/Vol] 1.10 ng/dL Normal 0.64-1.79 [facility] Comment on above: Performed By: #### 7 50, 800, 1000, 1005, 4500, 4520, 4575 #### [facility] Unless Otherwise Noted [address] [address] / COLA #4724/CLIA # [id number] Lipidson 05-19-2019 Cholesterol [Mass/Vol] 209.0 mg/dL High 0.0-199.0 [facility] Comment on above: Performed By: #### 7 50, 800, 1000, 1005, 4500, 4520, 4575 #### [facility] Unless Otherwise Noted [address] [address] / COLA #4724/CLIA # [id number] Cholesterol in HDL [Mass/Vol] 66.0 mg/dL High 40.0-60.0 [facility] Comment on above: Performed By: #### 7 50, 800, 1000, 1005, 4500, 4520, 4575 #### [facility] Unless Otherwise Noted [address] [address] / COLA #4724/CLIA # [id number] Cholesterol in LDL [Mass/Vol] 118.4 mg/dL High 0.0-100.0 [facility] Comment on above: Performed By: #### 7 50, 800, 1000, 1005, 4500, 4520, 4575 #### [facility] Unless Otherwise Noted [address] [address] / COLA #4724/CLIA # [id number] Cholesterol in VLDL [Mass/Vol] 24.6 mg/dL Normal [facility] Comment on above: Performed By: #### 7 50, 800, 1000, 1005, 4500, 4520, 4575 #### [facility] Unless Otherwise Noted [address] [place] [address] / COLA #4724/CLIA # [id number] Cholesterol.total/Ch olesterol in HDL [Mass ratio] 3.2 {ratio} Normal [facility] Comment on above: Performed By: #### 7 50, 800, 1000, 1005, 4500, 4520, 4575 #### [facility] Unless Otherwise Noted [address] [address] / COLA #4724/CLIA # [id number] Triglyceride [Mass/Vol] 123.0 mg/dL Normal 0.0-150.0 [facility] Comment on above: Performed By: #### 7 50, 800, 1000, 1005, 4500, 4520, 4575 #### [facility] Unless Otherwise Noted [address] [place] [address] / COLA #4724/CLIA # [id number] NEW MICROALBUMINon 9 Creatinine (U) [Mass/Vol] 128.3 mg/dL Normal [facility] Comment on above: Performed By: #### 7 50, 800, 1000, 1005, 4500, 4520, 4575 #### [facility] Unless Otherwise Noted [address] [address] / COLA #4724/CLIA # [id number] Microalbumin 37.0 mg/L High 0.0-30.0 [facility] Comment on above: Performed By: #### 7 50, 800, 1000, 1005, 4500, 4520, 4575 #### [facility] Unless Otherwise Noted 2100 [facility] [address] [place] [address] / COLA #4724/CLIA # [id number] Urine A/C Ratio 28.8 mg/g Normal 0.0-30.0 [facility] Comment on above: Performed By: #### 7 50, 800, 1000, 1005, 4500, 4520, 4575 #### [facility] Unless Otherwise Noted 2099 [facility] 100 [place] [address] / COLA #4724/CLIA # [id number] Vital Signs Date Time Vital Sign Value Performing Clinician Facility 08-25-2024 12:39-0400 Body mass index (BMI) [Ratio] 43.48 kg/m2 Faheem Rock [employer] Work Phone: [facility] 08-25-2024 12:39-0400 Body weight 107.86 kg Faheem Rock [employer] Work Phone: [facility] 08-25-2024 12:39-0400 Diastolic blood pressure 85 mm[Hg] Faheem Rock [employer] Work Phone: [facility] 08-25-2024 12:39-0400 Heart rate 88 /min Faheem Rock [employer] Work Phone: [facility] 08-25-2024 12:39-0400 Systolic blood pressure 128 mm[Hg] Faheem Rock [employer] Work Phone: [facility] 01-12-2022 16:00-0500 Body height 157.48 cm Heath Silva Other [facility] Other 01-12-2022 16:00-0500 Body mass index (BMI) [Ratio] 45.17 kg/m2 Heath Silva Other [facility] Other 01-12-2022 16:00-0500 Body weight 112.04 kg Heath Olexa Other [facility] Other 11-04-2021 10:00-0500 Body height 157.48 cm Heath Olexa Other [facility] Other 11-04-2021 10:00-0500 Body mass index (BMI) [Ratio] 46.82 kg/m2 Heath Olexa Other [facility] Other 11-04-2021 10:00-0500 Body weight 116.12 kg Heath Olexa Other [facility] Other 10-14-2021 14:30-0500 Body height 157.48 cm Heath Olexa Other [facility] Other 10-14-2021 14:30-0500 Body mass index (BMI) [Ratio] 46.16 kg/m2 Heath Olexa Other [facility] Other 10-14-2021 14:30-0500 Body weight 114.49 kg Heath Olexa Other [facility] Other 05-19-2019 18:58-0400 Body weight 107.1 Kg [facility] Comment on above: Performed By: #### 750, 800, 1000, 1005, 4500, 4520, 4575 #### [facility] Unless Otherwise Noted [address] [place] [address] [place], [place] [id number] / WILLIE #4724/ANTONY # [id number] Encounters Encounter Date Encounter Type Care Provider Facility Start: 09-19-2024 End: 09-19-2024 Miguel Rock [employer] Work Phone: [facility] Comment on above: Postablative hypothy roidism Start: 09-04-2024 End: 09-04-2024 ambulatory JOSUE HINOJOSA Not Available Start: 09-04-2024 End: 09-04-2024 Postop follow up visit related to original px Josue Hinojosa DPM Work Phone: [facility] Comment on above: Surgery follow-up ex amination (Primary Dx); Exostosis of left foot; Left foot pain Start: 09-04-2024 End: 09-04-2024 Bamboo flowsheet Josue uHber Ashish DPM Work Phone: [facility] Start: 09-04-2024 End: 09-04-2024 Bamboo flowsheet Josue Huber Ashish DPM Work Phone: [facility] Start: 08-25-2024 End: 08-25-2024 ambulatory [facility] Start: 08-25-2024 End: 08-25-2024 Office outpatient visit 25 minutes Faheem Rock [employer]N Work Phone: [facility] Comment on above: Type 2 diabetes lisa itus without complication, without long- term current use of insulin ([facility]) (Primary Dx); Postablative hypothyroidism Start: 08-25-2024 End: 08-25-2024 ambulatory [facility] Start: 08-21-2024 End: 08-21-2024 Postop follow up visit related to original px Josue Hinojosa DPM Work Phone: [facility] Comment on above: Surgery follow-up ex amination (Primary Dx); Exostosis of left foot; Left foot pain Start: 08-21-2024 End: 08-21-2024 ambulatory JOSUE HINOJOSA Not Available Start: 08-21-2024 End: 08-21-2024 Bamboo flowsheet Josue Huber Ashish DPM Work Phone: [facility] Start: 08-21-2024 End: 08-21-2024 Bamboo flowsheet Josue Hinojosa DPM Work Phone: [facility] Start: 08-20-2024 End: 08-21-2024 Refill Faheem Rock [employer]N [facility] Comment on above: Type 2 diabetes lisa itus without complication, without long- term current use of insulin ([facility]) Start: 08-16-2024 End: 08-16-2024 Office outpatient visit 15 minutes Peri VALDEZ Work Phone: [facility] Comment on above: Acute pain of left k nee (Primary Dx); History of left knee replacement Start: 08-16-2024 End: 08-16-2024 ambulatory PERI NIELSEN Not Available Start: 08-16-2024 End: 08-16-2024 Bamboo flowsheet Peri VALDEZ Work Phone: [facility] Start: 08-16-2024 End: 08-16-2024 Bamboo flowsheet Peri Nielsen PA Work Phone: [facility] Start: 08-14-2024 End: 08-14-2024 Postop follow up visit related to original px Josue Hinojosa DPM Work Phone: [facility] Comment on above: Surgery follow-up ex amination (Primary Dx); Exostosis of left foot; Left foot pain Start: 08-14-2024 End: 08-14-2024 ambulatory JOSUE HINOJOSA Not Available Start: 08-14-2024 End: 08-14-2024 Bamboo flowsheet Josue Hinojosa DPM Work Phone: [facility] Start: 08-14-2024 End: 08-14-2024 Bamboo flowsheet Josue Hinojosa DPM Work Phone: [facility] Start: 08-10-2024 End: 08-10-2024 Bamboo flowsheet Josue Hinojosa DPM Work Phone: [facility] Start: 08-10-2024 End: 08-10-2024 Bamboo flowsheet Josue Hinojosa DPM Work Phone: [facility] Start: 08-10-2024 End: 08-10-2024 ambulatory JOSUE HINOJOSA Not Available Start: 08-10-2024 End: 08-10-2024 Office outpatient visit 15 minutes Josue Hinojosa DPM Work Phone: [facility] Comment on above: Exostosis of left fo ot (Primary Dx); Left foot pain; Osteoarthritis of midtarsal joint of left foot; Osteoarthritis of right ankle and foot Start: 07-24-2024 End: 07-24-2024 ambulatory JOSUE HINOJOSA Not Available Start: 07-04-2024 End: 07-04-2024 ambulatory DIEGO UDNNE Not Available Start: 04-27-2024 End: 04-27-2024 ambulatory JOSUE HINOJOSA Not Available Start: 03-03-2024 End: 03-03-2024 ambulatory [facility] Start: 01-26-2024 End: 01-26-2024 ambulatory JOSUE HINOJOSA Not Available Start: 11-26-2023 End: 11-26-2023 Patient encounter procedure Josue Hinojosa DPM Work Phone: [facility] Comment on above: Primary osteoarthrit is, left ankle and foot (Primary Dx); Primary osteoarthritis, right ankle and foot Start: 11-22-2023 End: 11-22-2023 ambulatory JOSUE HINOJOSA Not Available Start: 11-16-2023 End: 11-16-2023 ambulatory JOSUE HINOJOSA Not Available Start: 11-15-2023 Orders Only Faheem willson [employer]ARDENER [employer]N Work Phone: [facility] Comment on above: Postablative hypothy roidism (Primary Dx) Start: 11-12-2023 End: 11-13-2023 ambulatory FAHEEM ROCK [facility] Start: 11-03-2023 End: 11-03-2023 ambulatory JOSUE Huber ASHISH Not Available Start: 04-06-2023 Telephone encounter G Yuri Lindo MD Work Phone: [facility] Comment on above: Patient Question Start: 12-21-2022 End: 12-22-[address] NORA LINDO Facility:[facility] Start: 09-28-2022 End: 09-28-[address] CHACHA LEDBETTER Facility:[facility] Start: 09-02-2022 Encounter for genera l adult medical examination without abnormal findings DR CHACHA LEDBETTER [facility] Start: 08-28-2022 End: 08-29-[address] CHACHA LEDBETTER Facility:[facility] Start: 08-28-2022 End: 08-29-2022 Encounter for general adult medical examination without abnormal findings DR CHACHA LEDBETTER Facility:[facility] Start: 06-14-2022 Encounter for other preprocedural examination DR DOCTOR SCHULZ [facility] Start: 06-10-2022 End: 06-11-[address] CHACHA LEDBETTER Facility:[facility] Start: 06-10-2022 End: 06-11-2022 Encounter for other preprocedural examination DR CHACHA LEDBETTER Facility:[facility] Start: 02-03-2022 End: 02-03-2022 ambulatory Heath Olexa Other [facility] Other Start: 02-03-2022 Office outpatient vi sit 15 minutes Heath Olexa [facility] Start: 01-12-2022 End: 01-12-2022 ambulatory Heath Olexa Other [facility] Other Start: 01-12-2022 Office outpatient vi sit 15 minutes Heath Olexa [facility] Start: 01-01-2022 End: 01-02-[address] CHACHA LEDBETTER Facility:[facility] Start: 11-04-2021 End: 11-04-2021 ambulatory Heath Olexa Other [facility] Other Start: 11-04-2021 Office outpatient vi sit 15 minutes Heath Olexa [facility] Start: 10-14-2021 End: 10-14-2021 ambulatory Heath Silva Other [facility] Other Start: 10-14-2021 Office outpatient vi sit 15 minutes Heath Silva [facility] Start: 09-11-2021 End: 09-11-2021 ambulatory Heath Silva Other [facility] Other Start: 09-11-2021 Telephone encounter Heath Silva [facility] Start: 10-24-2018 End: 10-25-2018 Patient encounter procedure DEFAULT PHYSICIAN Facility:[facility] Start: 10-04-2018 Patient encounter procedure Faheem Rock [employer] INTERN Work Phone: [facility] Procedures Date Procedure Procedure Detail Performing Clinician Start: 08-25-2024 Gluc bld gluc mntr dev cleared fda spec home use Faheem Rock [employer]N Work Phone: Start: 08-25-2024 Microalbumin [Mass/volume] in Urine by Test strip Faheem Rock [employer]N Work Phone: Start: 08-17-2024 Radex foot complete minimum 3 views Josue Hinojosa DPM Work Phone: Start: 08-10-2024 Radex foot complete minimum 3 views Josue Hinojosa DPM Work Phone: Start: 11-12-2023 Microalbumin [Mass/volume] in Urine by Test strip Faheem Rock [employer] INTERN Work Phone: Start: 11-15-2018 Mammography Faheem Rock [employer]ENER [employer] INTERN Work Phone: History of operative procedure on knee History of left knee replacement Peri VALDEZ Work Phone: Plan of Treatment Date Care Activity Detail Author Start: 08-25-2025 Adult BMI Screening [facility] Start: 08-25-2025 Diabetic foot examination [facility] Start: 08-25-2025 Tobacco Screening [facility] Start: 08-25-2025 Urine screening for protein Urine Microalbumin [facility] Start: 08-17-2025 End: 08-17-2025 Patient encounter procedure 08/17/2025 11:30 AM EDT Office Visit [facility] [address] [facility] [place] [address] Peri Nielsne, PA [address] [facility] [address] [place] [address] [facility] Start: 04-27-2025 End: 04-27-2025 Patient encounter procedure 04/27/2025 11:30 AM EDT Office Visit [facility] [address] [facility] [address] [place] [address] Nadia Sotomayor MD [address] [facility] [address] [place] [address] [facility] Start: 03-03-2025 Adult BMI Screening Adult BMI Screen ing [facility] Start: 03-03-2025 Tobacco Screening Tobacco Screening [facility] Start: 12-29-2024 End: 12-29-2024 Patient encounter procedure 12/29/2024 2:00 PM EST Office Visit [facility] [address] [facility] [address] [place] [address] Faheem Rock, HARDENER HEL[employer]FINANCE INTERN [address] [facility] [place] [address] [facility] Start: 11-12-2024 Urine screening for protein Urine Microalbumin [facility] Start: 10-25-2024 End: 10-25-2024 Patient encounter procedure 10/25/2024 4:15 PM EST Procedure Visit [facility] [address] [place] [address] [place] [address] Josue Hinojosa DPM [address] [place] [address] [place] [address] [facility] Start: 09-27-2024 End: 09-27-2024 Patient encounter procedure 09/27/2024 4:00 PM EST Office Visit [facility] [address] [place] [phone] Josue Hinojosa, DPM [address] [place] [address] [place] [address] [facility] Start: 09-12-2024 End: 09-12-2024 Patient encounter procedure 09/12/2024 5:45 PM EST Office Visit [facility] [address] [facility] [address] [place] [phone] Diego Dunne, DO [address] [place] [address] [facility] Start: 09-04-2024 End: 09-04-2024 Patient encounter procedure 09/04/2024 4:00 PM EDT Office Visit [facility] [address] [place] [phone] Josue Hinojosa, DPM [address] [place] [place] [address] [facility] Start: 09-03-2024 Adult BMI Screening Adult BMI Screen ing [facility] Start: 09-03-2024 Diabetic foot examination Diabetic Foot Exam [facility] Start: 09-03-2024 Tobacco Screening Tobacco Screening [facility] Start: 08-28-2024 End: 08-28-2024 Patient encounter procedure 08/28/2024 4:00 PM EDT Office Visit [facility] [address] [place] [phone] Josue Hinojosa, DPM [address] [place] [place] [address] [facility] Start: 08-25-2024 End: 08-25-2024 Patient encounter procedure 08/25/2024 1:30 PM EDT Office Visit [facility] [address] [place] [place] [address] Faheem Rock, [employer]ENER [employer] INTERN [address] [place] [place] [address] [facility] Start: 08-21-2024 End: 08-21-2024 Patient encounter procedure [facility] Comment on above: Arrived Start: 08-16-2024 End: 08-16-2024 Patient encounter procedure [facility] Comment on above: Acute pain of left k nee (Primary Dx); History of left knee replacement Start: 08-14-2024 End: 08-14-2024 Patient encounter procedure [facility] Comment on above: Arrived Start: 08-11-2024 End: 08-11-2024 Patient encounter procedure 08/11/2024 7:30 AM EDT Procedure Visit [facility] Josue Hinojosa, DPSerge [address] [place] [address] [facility] Start: 07-09-2024 COVID-19 Vaccine ( season) COVID-19 Vaccine ( season) [facility] Start: 07-09-2024 COVID-19 Vaccine ( season) COVID-19 Vaccine ( season) [facility] Start: 07-09-2024 Influenza [facility] Start: 07-03-2024 End: 07-03-2024 Patient encounter procedure 07/03/2024 3:00 PM EDT Office Visit [facility] [address] [facility] 150 [place] [address] Peri Nielsen, PA [address] [place] [facility] [address] [place] [address] [facility] Start: 03-03-2024 End: 03-03-2024 Patient encounter procedure 03/03/2024 11:45 AM EDT Office Visit [facility] [address] [place] [phone] Nadia Sotomayor MD [address] [place] [address] [facility] Start: 01-26-2024 End: 01-26-2024 Patient encounter procedure 01/26/2024 4:15 PM EDT Procedure Visit [facility] [address] [place] [address] Josue Hinojosa DPM [address] [place] [address] [facility] Start: 01-10-2024 End: 11-15-2024 Thyroid profile includes TSH FT4 Thyroid profile includes TSH FT4 Lab Routine Postablative hypothyroidism Expected: 01/10/2024 (Approximate), Expires: 11/15/2024 [facility] Work Phone: Comment on above: Expected: 01/10/2024 (Approximate), Expires: 11/15/2024 Start: 07-09-2023 COVID-19 Vaccine ( season) COVID-19 Vaccine ( season) [facility] Start: 07-09-[address] [facility] Start: 05-05-2023 Screening for malign ant neoplasm of cervix [facility] Start: 11-08-2022 DEPRESSION ASSESSMENT DEPRESSION ASS ESSMENT [facility] Start: 01-16-2022 COVID-19 VACCINE (4 - Booster for Pfizer series) COVID-19 VACCINE (4 - Booster for Pfizer series) [facility] Start: 10-04-2021 DIABETES SCREEN DIABETES SCREEN [facility] Start: 11-15-2019 Screening for malign ant neoplasm of breast Mammogram [facility] Start: 2017 SHINGRIX VACCINE (1 of 2) SHINGRIX VACCINE (1 of 2) [facility] Start: 2012 COLOGUARD (FIT-DNA) COLOGUARD (FIT-D NA) [facility] Start: 2012 Colonoscopy COLONOSCOPY [facility] Start: 2012 COLORECTAL CANCER SCREENING COLORECTAL CANCER SCREENING [facility] Start: [address] [facility] Start: 2012 FECAL OCCULT BLOOD FECAL OCCULT BLOO D [facility] Start: 2012 LIPID SCREEN LIPID SCREEN [facility] Start: 2012 SIGMOIDOSCOPY SIGMOIDOSCOPY [facility] Start: 2007 Mammography MAMMOGRAM [facility] Start: 1997 HPV TESTING HPV TESTING [facility] Start: 1997 Screening for malign ant neoplasm of cervix [facility] Start: 1988 PAP TESTING PAP TESTING [facility] Start: 1988 Screening for malign ant neoplasm of cervix Pap Smear [facility] Start: 1986 Administration of varicella zoster vaccine Zoster (Shingles) Vaccine (1 of 2) [facility] Start: 1986 DTaP,Tdap and Td Vaccines (1 - Tdap) DTaP,Tdap and Td Vaccines (1 - Tdap) [facility] Start: 1986 Urine microalbumin profile DTAP,TDAP,TD (1 - Tdap) [facility] Start: 1985 HEPATITIS C SCREENING HEPATITIS C SC REENING [facility] Start: 1985 HIV SCREENING HIV SCREENING [facility] Start: 1979 Depression Screening Depression Scre ening [facility] Start: 1967 Glaucoma screening Diabetic Op hthalmology Exam [facility] Start: 1967 HEPATITIS B (1 of 3 - 3-dose series) HEPATITIS B (1 of 3 - 3-dose series) [facility] Start: 1967 Screening for malign ant neoplasm of colon [facility] End: 08-25-2025 Comprehensive metabolic 2000 panel - Serum or Plasma Comprehensive metabolic panel Lab Routine Type 2 diabetes mellitus without complication, without long-term current use of insulin (CMS-HCC) 1 Occurrences starting 08/25/2024 until 08/25/2025 [employer] Work Phone: Comment on above: 1 Occurrences starti ng 08/25/2024 until 08/25/2025 End: 08-25-2025 Cyanocobalamin vitamin b-12 Vitamin B12 Lab Routine Type 2 diabetes mellitus without complication, without long-term current use of insulin ([facility]) 1 Occurrences starting 08/25/2024 until 08/25/2025 [facility] Comment on above: 1 Occurrences starti ng 08/25/2024 until 08/25/2025 End: 08-25-2025 Lipid 1996 panel - Serum or Plasma Lipid profile Lab Routine Type 2 diabetes mellitus without complication, without long-term current use of insulin ([facility]) 1 Occurrences starting 08/25/2024 until 08/25/2025 [facility] Comment on above: 1 Occurrences starti ng 08/25/2024 until 08/25/2025 End: 08-25-2025 Microalbumin - Albumin: Creatinine Urine Ratio Microalbumin - Albumin: Creatinine Urine Ratio Lab Routine Type 2 diabetes mellitus without complication, without long-term current use of insulin ([facility]) 1 Occurrences starting 08/25/2024 until 08/25/2025 [facility] Comment on above: 1 Occurrences starti ng 08/25/2024 until 08/25/2025 End: 08-25-2025 Thyroid profile includes TSH FT4 Thyroid profile includes TSH FT4 Lab Routine Postablative hypothyroidism 1 Occurrences starting 08/25/2024 until 08/25/2025 [facility] Comment on above: 1 Occurrences starti ng 08/25/2024 until 08/25/2025 XR Knee - left 1 or 2 Views XR knee 1 or 2 views left Imaging Routine Acute pain of left knee 08/16/2024 3:04 PM EDT [facility] Work Phone: Immunizations Immunization Date Immunization Notes Care Provider Fa cility NEGATED: Highlighted row has not occurred!10-21-2018 influenza, injectable, quadrivalent, preservative free Faheem Rock [employer] Work Phone: [employer] Comment on above: Deferred: Patient Re fused Payers Date Payer Category Payer Managed Care Other (unspecified) [employer] [id number] 2022 Private Health Insurance [id number] 2020 Unknown 1967 Unknown [id number] 2.16.840.1.781545.3.579. 2.647 1967 Unknown [id number] 2.16.840.1.001031.3.579. 2.593 1967 Unknown [id number] 2.16.840.1.563627.3.579. 2.593 1967 Unknown [id number] 2.16.840.1.912163.3.579. 2.593 1967 Unknown [id number] 2.16.840.1.151952.3.579. 2.593 1967 Unknown [id number] 2.16.840.1.297247.3.579. 2.593 1967 Unknown [id number] 2.16.840.1.717007.3.579. 2.1286 1967 Unknown [id number] 2.16.840.1.674145.3.579. 2.1286 1967 Unknown [id number] 2.16.840.1.516027.3.579. 2.1286 1967 Unknown [id number] 2.16.840.1.131471.3.579. 2.1286 1967 Unknown [id number] 2.16.840.1.573282.3.579. 2.1285 1967 Unknown [id number] 2.16.840.1.478022.3.579. 2.1258 1967 Unknown [id number] 2.16.840.1.694040.3.579. 2.1258 1967 Unknown [id number] 2.16.840.1.801913.3.579. 2.1258 1967 Unknown [id number] 2.16.840.1.541763.3.579. 2.1258 1967 Unknown [id number] 2.16.840.1.127432.3.579. 2.1258 1967 Unknown [id number] 2.16.840.1.030837.3.579. 2.1258 1967 Unknown [id number] 2.16.840.1.218847.3.579. 2.1258 1967 Unknown [id number] 2.16.840.1.379574.3.579. 2.1258 1967 Unknown [id number] 2.16.840.1.543446.3.579. 2.1258 1967 Unknown [id number] 2.16.840.1.571409.3.579. 2.1258 1967 Unknown [id number] 2.16.840.1.035217.3.579. 2.1258 1967 Unknown [id number] 2.16.840.1.377850.3.579. 2.1258 1967 Unknown [id number] 2.16.840.1.909728.3.579. 2.1259 1959 Unknown [id number] 2.16.840.1.882300.19 1959 Unknown [id number] Social History Date Type Detail Facility Start: 10-07-2018 End: 12-19-2020 Sex Assigned At [facility] Jeannine [employer] Other Start: 09-22-2012 End: 10-21-2022 Tobacco smoking status NHIS Never smoked tobacco [facility] Start: 09-22-2012 End: 10-21-2022 Tobacco use and exposure Smokeless tobacco non-user [facility] Start: 06-25-2022 Alcohol intake Not Asked Iraida baron [facility] Start: 1965 Sex Assigned At Not on file [facility] Start: 09-03-2023 End: 08-25-2024 Alcohol intake Current drinker of alcohol (finding) [facility] Start: 10-07-2018 End: 12-19-2020 History of Social function [facility] Frequency of Alcohol Consumption Never [facility] Start: 11-02-2018 Alcohol Comment Rarely [facility] Start: 07-05-2023 Alcohol Comment caffeine intak e: 1-2 cups per day. [facility] Start: 06-13-2015 Sex Female (finding) [facility] Medical Equipment Procedure Code Equipment Code Equipment Origin al Text Equipment Identifier Dates TEST ONCE DAILY [id number] Start: 05-23-2019 Monitor blood [facility] daily [id number] Start: 11-03-2018 Goals Date Patient Goal Desired Activity /State Personal health goal Comment on above: Formatting of this n ote might be different from the original. Evaluation of progress towards goal:Discharge home self care w/spouse/family support Clinical Notes 10-14-2021 to 09-04-2024 Josue Hinojosa DPM - 09/04/2024 4:00 PM Concepción Hinojosa DPM - 08/21/2024 4:30 PM COURTNEY Richards - 08/16/2024 3:15 PM Concepción Hinojosa DPM - 08/14/2024 4:15 PM EDT Note Date & Type Note Facility 09-04-2024 History of Presen t illness Narrative Images from the original note were not included. HPI: Richelle Pelaez presents today for post-op appointment of removal of bone left 3rd toe. Surgery was performed on 08/11/2024 at [facility]. Patient complains of pain 0. Current symptoms are dull. Majority of her symptoms are along the surgical sites. Patient has been elevating as instructed. Examination: General Examination: GENERAL EXAMINATION: awake, aware of surroundings, in no acute distress. Foot exam: 09/04/24 Vascular: DORSALIS PEDIS PULSE: 2/4, bilaterally. POSTERIOR TIBIAL PULSE: 1/4, right 0/4 left. TEMPERATURE GRADIENT: warm to cool. EDEMA: moderate to the bilateral ankle. CAPILLARY FILLING TIME(sec): capillary fill intact bilateral digits less than 3 secs. Neurologic: NEUROLOGIC: light touch is intact to the plantar foot. Dermatologic: SKIN FINDINGS: incision site to the 3rd digit is well healed. There is dried blood along the incision that was removed. No underlying opening noted. Hyperkeratosis along the distal digit is loosening from surgery and loosened skin was removed. HYPERKERATOSIS: distal 2nd digit left NAIL PATHOLOGY: digits 1, 5 bilateral, for right are intact. NAIL PATHOLOGY: Nails 1 bilateral, Fifth left, forth right are thickened, discolored, dystrophic crumbly and with subungual debris. Orthopedic: FOOT MORPHOLOGY:Cavus. JOINT RANGE OF MOTION:Limited range of motion to the lesser MPJs, mostly second and third, normal range of motion to the ankle and subtalar joint bilateral. 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 PAIN ELICITED WITH PALPATION OFalong the callous sites bilateral foot. PAIN ELICITED WITH ROM:tarsometatarsal joint bilateral ankle. MUSCLE STRENGTH5/5 for all pedal groups tested. Orthotics fit well with no evidence of rubbing and good support noted to the arch with adequate width and length. Assessments: ICD-10-CM 1. Surgery follow-up examination Z09 2. 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 Left foot pain M79.672 Plan: Surgery Follow-up Examination: Dried blood and callous along the 3rd toe was removed. The toe is in a good anatomic position with no residual evidence of pressure. Patient has return to normal shoe gear, activity and bathing without any restrictions. They should follow-up if they notice any persistent pain or problems. Patient will return to work on Wednesday without any restrictions. She has a [place] appointment in 3 weeks and will follow-up then. documented in this encounter [facility] 08-21-2024 History of Presen t illness Narrative Images from the original note were not included. HPI: Richelle Pelaez presents today for post-op appointment of removal of bone left 3rd toe. Surgery was performed on 08/11/2024 at [facility]. Patient complains of pain 4. Current symptoms are pulling, tightness . Majority of her symptoms are along the surgical sites. Patient has been icing and elevating as instructed. Examination: General Examination: GENERAL EXAMINATION: awake, aware of surroundings, in no acute distress. Foot exam: 08/17/24 Vascular: DORSALIS PEDIS PULSE: 2/4, bilaterally. POSTERIOR TIBIAL PULSE: 1/4, right 0/4 left. TEMPERATURE GRADIENT: warm to cool. EDEMA: to the left foot CAPILLARY FILLING TIME(sec): capillary fill intact bilateral digits less than 3 secs. Neurologic: NEUROLOGIC: light touch is intact to the plantar foot. Dermatologic: SKIN FINDINGS: Incision to the distal third digit is well coapted with sutures intact. There is mild ecchymosis around the third toe. No evidence of streaking or warmth is noted. HYPERKERATOSIS: Distal aspect of the second, third stomp bilateral NAIL PATHOLOGY: digits 1, 5 bilateral, for right are intact. NAIL PATHOLOGY: Nails 1 bilateral, Fifth left, forth right are thickened, discolored, dystrophic crumbly and with subungual debris. Orthopedic: FOOT MORPHOLOGY:Cavus. JOINT RANGE OF MOTION:Limited range of motion to the lesser MPJs, mostly second and third, normal range of motion to the ankle and subtalar joint bilateral. 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 PAIN ELICITED WITH PALPATION OF: along the callous sites bilateral foot. PAIN ELICITED WITH ROM: tarsometatarsal joint bilateral ankle. MUSCLE STRENGTH: 5/5 for all pedal groups tested. Assessments: ICD-10-CM 1. Surgery follow-up examination Z09 2. 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 Left foot pain M79.671 Plan: Surgery Follow-up Examination: Sutures were removed from the incision site. Advised that she can begin to get the area wet, but to avoid soaking for the next 2-3 weeks until the skin is completely healed. She can start light touch massage to help prevent nerve pain or symptoms along the incision site. Patient can return to normal shoe gear as long as she does not have any increased pain or symptoms. RTC: 3 weeks. documented in this encounter [facility] 08-16-2024 History of Presen t illness Narrative HISTORY OF PRESENT ILLNESS: EST PT Richelle Pelaez is an 59 y.o. @ female. EST PT HERE FOR YEARLY RECHECK (L) TKA 07/02/22 (2YRS)- DOING WELL XRAY LT KNEE TODAY 08/16/24 EPIC XRAY LT KNEE CHANGE 07/05/23 XRAY EXA 11/03/22 XRAYS, (L) KNEE 09/14/22 IN EXA XRAYS, (L) HIP 09/11/22 IN EXA C/O PAIN AND SWELLING LATERAL KNEE-SOME WEAKNESS PT IS WEARING A SURGICAL SHOE ON LT FOOT; RECENT FOOT SURGERY 08/12/24 SASCHA: PT NOTES INCREASE PAIN AFTER SHE WAS SQUATTING TO PUT AIR IN HER TIRE. ALLERGIES: No Known Allergies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 - General Family Medicine 04/27/23 Diego Dunne DO [address] [place] [address] Referring Physician Neurology 01/04/24 Store Facility Technician Relationship Specialty Start Date End Date Chacha Ledbetter MD [address] [facility] [place] [address] PCP - General Family Medicine 04/27/23 Diego Dunne DO [address] [place] [address] Referring Physician Neurology 01/04/24 Store Facility Technician Relationship Specialty Start Date End Date Chacha Ledbetter MD [address] [facility] [place] [address] PCP - General Family Medicine 04/27/23 Diego Dunne DO [address] [place] [address] Referring Physician Neurology 01/04/24 Store Facility Technician Relationship Specialty Start Date End Date Chacha Ledbetter MD PCP - General Family Medicine 10/21/22 Store Facility Technician Relationship Specialty Start Date End Date Chacha Ledbetter MD [address] [facility] [place] [address] PCP - General Family Medicine 04/27/23 Diego Dunne DO [address] [place] [address] Referring Physician Neurology 01/04/24 Store Facility Technician Relationship Specialty Start Date End Date Chacha Ledbetter MD PCP - General Family Medicine 10/21/22 Store Facility Technician Relationship Specialty Start Date End Date Chacha Ledbetter MD [address] [place] [address] [place] [address] PCP - General Family Medicine 04/27/23 Diego Dunne DO [address] [place] [address] Referring Physician Neurology 01/04/24 Store Facility Technician Relationship Specialty Start Date End Date Chacha Ledbetter MD PCP - General Family Medicine 10/21/22 FOR RECORDS PERTAINING TO PATIENTS WHO ARE [...] BE BASED ON THE PRIMARY CLINICAL RECORDS. [employer] [facility] provides no warranty or guarantee of the accuracy or completeness of information in this document.
[2024-09-30 10:10] LABS: Basophils Absolute Auto 0.1 10^3/uL (0.0-0.1); Basophils Percent Auto 0.9 % (0.2-2.0); Eosinophils Absolute Auto 0.2 10^3/uL (0.0-0.7); Eosinophils Percent Auto 2.6 % (0.9-7.0); Hematocrit 44.7 % (36.0-48.0); Hemoglobin 14.8 g/dL (12.0-16.0); Immature Granulocytes Abs Auto 0.02 10^3/uL (0.00-0.03); Immature Granulocytes Pct Auto 0.3 % (0.0-0.5); Lymphocytes Absolute Auto 1.7 10^3/uL (1.2-3.8); Lymphocytes Percent Auto 22.8 % (20.5-60.0); Mean Corpuscular HGB Conc 33.1 g/dL (29.9-35.2); Mean Corpuscular Hemoglobin 29.7 pg (26.7-34.0); Mean Corpuscular Volume 89.8 fL (81.0-99.0); Mean Platelet Volume 10.6 fL (9.5-13.5); Monocytes Absolute Auto 0.7 10^3/uL (0.3-0.8); Monocytes Percent Auto 9.8 % (1.7-12.0); Neutrophils Absolute Auto 4.8 10^3/uL (1.4-6.5); Neutrophils Percent Auto 63.6 % (43.0-75.0); Platelet Count 198 10^3/uL (150-450); Red Blood Count 4.98 10^6/uL (4.20-5.40); Red Cell Distribution Width 14.4 % (11.0-15.0); White Blood Count 7.6 10^3/uL (4.0-11.0)
[2024-09-30 10:23] LABS: Estimated Average Glucose 114 mg/dL; Glycohemoglobin A1C 5.6 % (4.5-6.2)
[2024-09-30 10:46] LABS: Chol HDL Ratio 1.7; Cholesterol 183 mg/dL (<=200); HDL Cholesterol 105 mg/dL (40-60); Triglycerides 53 mg/dL (<=150); VLDL CHOLESTEROL 10.6 mg/dL
[2024-09-30 10:54] LABS: Alanine Aminotransferase 16 U/L (14-59); Albumin Globulin Ratio 1.1; Albumin Level 3.9 g/dL (3.4-5.0); Alkaline Phosphatase 89 U/L (46-116); Anion Gap 14.7; Aspartate Amino Transferase 27 U/L (15-37); BUN Creatinine Ratio 15.6; Bilirubin Total 1.3 mg/dL (0.2-1.0); Calcium 9.2 mg/dL (8.5-10.1); Carbon Dioxide 27.3 mmol/L (21.0-32.0); Chloride 106 mmol/L (98-107); Estimated GFR (African America >60 (>=60 mL/min/1.73m^2); Estimated GFR (Non-African Ame >60 (>=60 mL/min/1.73m^2); Free T3 2.97 pg/mL (2.18-3.98); Globulin 3.5 g/dL; Glucose 107 mg/dL (74-106); Sodium 144 mmol/L (136-145); Thyroid Stimulating Hormone 0.341 uIU/mL (0.358-3.740); Total Protein 7.4 g/dL (6.4-8.2)
--- OUTSIDE RECORDS SUMMARY | 2024-10-04 14:34 | XMS_ITS | CCD ---
Author Organization [facility] [employer] Care Team Providers Care Kickboxing Instructor Name Role Phone PHYSICIAN, DEFAULT Unavailable Unavailable [...] Unavailable Chacha Ledbetter MD Primary Care Provider [phone] Chacha Ledbetter MD Primary Care Provider [phone] Diego Dunne DO Unavailable Chacha Ledbetter MD Primary Care Provider [phone] NADIA SOTOMAYOR Attending Unavailable HCACHA LEDBETTER Referring Unavailable CHACHA LEDBETTER Primary Care [...] Drug Class(es) Dates Sig (Normalized) Sig (Original) [id number] 200 actuat albuterol 0.09 mg/actuat metered dose [...] complication, without long-term current use of insulin ([facility]) TAKE 1 TABLET(500 MG) BY [...] every six hours for pain HYDROcodone-aceta minophen ([employer]) 5-325 MG tablet Indications: Exostosis of left [...] 08-25-2024 Albumin [Mass/Vol] 4.1 g/dL Normal 3.2-5.3 [facility] Comment on above: Performed By: #### C LIZETH, THYR, 2-9 #### [facility] ([id number]) [address], [address] [place] [address] ALP [Catalytic activity/Vol] 81 U/L Normal 39-130 [facility] Comment on above: Performed By: #### C LIZETH THYR, 2132-07 #### [facility] ([id number]) [address], [address] [place] [address] ALT [Catalytic activity/Vol] 13 U/L Normal 0-31 [facility] Comment on above: Performed By: #### C LIZETH THYR, 2132-07 #### [facility] ([id number]) [address], [address] [place] [address] Anion gap [Moles/Vol] 10 mmol/L Normal 5-15 [facility] Comment on above: Performed By: #### C LIZETH THYR, 2132-07 #### [facility] ([id number]) [address], [address] [place] [address] AST [Catalytic activity/Vol] 22 U/L Normal 0-41 [facility] Comment on above: Performed By: #### C LIZETH, THYR, 2132-07 #### [facility] ([id number]) [address], [address] [place] [address] Bilirubin [Mass/Vol] 0.8 mg/dL Normal 0.3-1.2 [facility] Comment on above: Performed By: #### Smitha STANLEY THYR, 2132-07 #### [facility] ([id number]) [address], [address] [place] [address] Calcium [Mass/Vol] 9.0 mg/dL Normal 8.5-10.5 [facility] Comment on above: Performed By: #### C LIZETH THYR, 2132-07 #### [facility] ([id number]) [address], [address] [place] [address] Chloride [Moles/Vol] 104 mmol/L Normal 98-109 [facility] Comment on above: Performed By: #### Smitha STANLEY, THYR, 2132-07 #### [facility] ([id number]) [address], [address] [place] [address] CO2 [Moles/Vol] 27 mmol/L Normal 22-32 [facility] Comment on above: Performed By: #### C ASHLEY STANLEY, 2132-07 #### [facility] ([id number]) [address], [address] [place] [address] Creatinine [Mass/Vol] 0.90 mg/dL Normal 0.40-1.00 [facility] Comment on above: Result Comment: METH OD TRACEABLE TO IDMS STANDARD Performed By: #### C ASHLEY STANLEY, 2132-07 #### [facility] ([id number]) [address], [address] [place] [address] GFR/1.73 sq M.predicted among non-blacks MDRD (S/P/Bld) [Vol rate/Area] 75 mL/min/{1.73_m2} Normal >59 [facility] Comment on above: Result Comment: Reported eGFR is based on the CKD-EPI 2020 equation that does not use a race coefficient. Performed By: #### C ASHLEY STANLEY, 2132-07 #### [facility] ([id number]) [address], [address] [place] [address] Glucose [Mass/Vol] 101 mg/dL High 65-99 [facility] Comment on above: Performed By: #### C ASHLEY STANLEY, 2132-07 #### [facility] ([id number]) [address], [address] [place] [address] Potassium [Moles/Vol] 3.8 mmol/L Normal 3.5-5.0 [facility] Comment on above: Performed By: #### C ASHLEY STANLEY, 2132-07 #### [facility] ([id number]) [address], [address] [place] [address] Protein [Mass/Vol] 6.8 g/dL Normal 6.0-8.0 [facility] Comment on above: Performed By: #### C LIZETH THYLeni, 2132-07 #### [facility] ([id number]) [address], [address] [place] [address] Sodium [Moles/Vol] 141 mmol/L Normal 134-146 [facility] Comment on above: Performed By: #### C LIZETH THYLeni, 2132-07 #### [facility] ([id number]) [address], [address] [place] [address] Urea nitrogen [Mass/Vol] 22 mg/dL Normal 5-23 [facility] Comment on above: Performed By: #### C LIZETH THYLeni, 2132-07 #### [facility] ([id number]) [address], [address] [place] [address] MICROALBUMIN - ALBUMIN:CREAT ININE URINE RATIOon 08-25-2024 ALB/CREAT RATIO 12.6 mg/g creat Normal 0.0-30.0 [facility] Comment on above: Performed By: #### M ALBU #### [facility] ([id number]) [address], [address] [place] [address] Albumin DL <= 20 mg/L (U) [Mass/Vol] 2.3 mg/dL High 0.0-1.9 [facility] Comment on above: Performed By: #### M ALBU #### [facility] ([id number]) [address], [address] [place] [address] URINE CREAT 183.00 mg/dL Normal [facility] Comment on above: Performed By: #### M ALBU #### [facility] ([id number]) [address], [address] [place] [address] POCT Glucose Fingerstickon 1 Glucose [Mass/Vol] 145 mg/dL Abnormal 65 - 99 mg/dL [facility] Interpretation and review of laboratory results Abnormal [facility] POCT Hemoglobin A1con 2023 HbA1c (Bld) [Mass fraction] 5.7 % 4 - 7 % [facility] Interpretation and review of laboratory results Abnormal [facility] THYROID PROFILEon 08-25-2024 Free T4 [Mass/Vol] 1.23 ng/dL Normal 0.61-1.60 [facility] Comment on above: Performed By: #### C MP, THYR, 2132-07 #### [facility] ([id number]) [address], [address] [place] [address] TSH 2.05 uIU/mL Normal 0.49-4.67 [facility] Comment on above: Performed By: #### C MP, THYR, 2132-07 #### [facility] ([id number]) [address], [address] [place] [address] VITAMIN B12on 08-25-2024 Cobalamin (Vitamin B12) [Mass/Vol] 619 pg/mL Normal 180-914 [facility] Comment on above: Performed By: #### C , THYR, 2132-07 #### [facility] ([id number]) [address], [address] [place] [address] XR Foot - left 3 [facility] [...] of the ends of the toes 2,3,4 [facility] [facility] Radiology Study observation (narrative) [employer] XR Foot - left 3 [employer] [facility] Result: Three views of the left foot: AP, MO, LAT were performed today in the office. Radiographs were read by myself and demonstrate: No evidence of acute fracture or dislocation. Narrowing to the tarsometatarsal joint left. 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 There is enlargement and prominence to the distal left 3rd digit [facility] Radiology Study observation (narrative) [facility] THYROID PROFILEon 03-03-2024 Free T4 [Mass/Vol] 1.40 ng/dL Normal 0.61-1.60 [facility] Comment on above: Performed By: #### T HYR #### [facility] ([id number]) [address], [address] [place] [address] TSH 0.10 uIU/mL Low 0.49-4.67 [facility] Comment on above: Performed By: #### T HYR #### [facility] ([id number]) [address] [place] [address] MICROALBUMIN - ALBUMIN:CREAT ININE URINE RATIOon 11-12-2023 ALB/CREAT RATIO 13.5 mg/g creat Normal 0.0-30.0 [facility] Comment on above: Performed By: #### M ALBU #### [facility] ([id number]) [address], [address] [place] [address] Albumin DL <= 20 mg/L (U) [Mass/Vol] 0.7 mg/dL Normal 0.0-1.9 [facility] Comment on above: Performed By: #### M ALBU #### [facility] ([id number]) [address], [address] [place] [address] URINE CREAT 51.79 mg/dL Normal [facility] Comment on above: Performed By: #### M ALBU #### [facility] ([id number]) [address], [address] [place] [address] THYROID PROFILEon 11-12-2023 Free T4 [Mass/Vol] 1.37 ng/dL Normal 0.61-1.60 [facility] Comment on above: Performed By: #### T HYR #### [facility] ([id number]) [address] [place] [address] TSH 0.06 uIU/mL Low 0.49-4.67 [facility] Comment on above: Performed By: #### T HYR #### [facility] ([id number]) [address] [place] [address] CNPNon 04-06-2023 CNPN Telephone (RADTSA) RICHELLE PELAEZ ([id number]) 1965 F Date Time Provider Department 04/06/23 [...] Fully Assessed Reason for Visit: Patient Question [6747] Prescriptions as of 04/06/2023 - amLODIPine (NORVASC) [...] Encounter Status:Closed by COURTNEY GARCIA on 04/06/23 [facility] MG MAMM DIAGNOSTIC 3D MARGARITA CA Don 12-21-2022 MG MAMM DIAGNOSTIC 3D MARGARITA CAD Patient: RICHELLE PELAEZ Exam Date: 12/21/2022 : 1965 Gender:F Ordering : DR NORA LINDO M.D. Admission #: [id number] Family : Order #: [id number] CLICK HERE TO VIEW EXAM RADIOLOGY REPORT [...] breast cancer at age 75. LOCATION: [facility] BREAST COMPOSITION: Almost entirely fatty. FINDINGS: [...] MD on 12/21/2022 at 13:48 Normal [facility] Covid-19 PCR (CVDTBH)on 09-09 SARS-CoV-2 (COVID-19) RNA ERIC+probe Ql (Unsp spec) Not detected Normal NOT DETECTED [facility] Comment on above: Result Comment: When [...] for this test is supported by the Airplane Cabin Attendant of Health and Human Service's declaration that [...] used). Performed By: #### C VDTBH #### [facility] [address] [place] [address] Dr. Lisbeth Ramirez INFLUENZA A AND B AGon 09-[facility] SEE BELOW Normal [facility] Comment on above: Result Comment: Nega tive for Flu A protein angiten. Infection due to Flu A cannot be ruled out. Flu A angiten in the sample may be below the detection limit of the test. Performed By: #### I NFLUAB #### [facility] [address] [place] [address] Dr. Lisbeth [facility] Normal [facility] Comment on above: Result Comment: Nega tive for Flu B protein antigen. Infection due to Flu B cannot be ruled out. Flu B antigen in the sample may be below the detection limit of the test. Performed By: #### I NFLUAB #### [facility] [address] [place] [address] Dr. Lisbeth Ramirez INFLUENZA A AG Negative Normal NEGATIVE SEE COMMENT [facility] Comment on above: Performed By: #### I NFLUAB #### [facility] [address] [place] [address] Dr. Lisbeth Ramirez INFLUENZA B AG Negative Normal NEGATIVE SEE COMMENT [facility] Comment on above: Performed By: #### I NFLUAB #### [facility] [address] [place] [address] Dr. Lisbeth Ramirez INTERNAL CONTROLS Within Normal Limits Normal Wi thin Normal Limits [facility] Comment on above: Performed By: #### I NFLUAB #### [facility] [address] [place] [address] Dr. Lisbeth Ramirez INSULINon 08-29-2022 Insulin 30.4 uIU/mL Critically high 2.6-24.9 [facility] Comment on above: Performed By: #### I NSULIN #### [facility] [address] [place] [address] Dr. Lisbeth Ramirez CBC AUTO DIFFon 08-28-2022 BASO # 0.1 103/ul Normal 0.0-0.1 [facility] Comment on above: Performed By: #### C BC #### [facility] [address] [place] [address] Dr. Lisbeth Ramirez Basophils/100 WBC (Bld) 0.8 % Normal 0.2-2.0 [facility] Comment on above: Performed By: #### C BC #### [facility] [address] [place] [address] Dr. Lisbeth Ramirez EO # 0.2 103/ul Normal 0.0-0.7 [facility] Comment on above: Performed By: #### C BC #### [facility] [address] [place] [address] Dr. Lisbeth Ramirez Eosinophils/100 WBC (Bld) 2.5 % Normal 0.9-7.0 [facility] Comment on above: Performed By: #### C BC #### [facility] [address] [place] [address] Dr. iLsbeth Ramirez Erythrocyte distribution width (RBC) [Ratio] 13.0 % Normal 11.0-15.0 [facility] Comment on above: Performed By: #### C BC #### [facility] [address] [place] [address] Dr. Lisbeth Ramirez Hematocrit (Bld) [Volume fraction] 42.1 % Normal 36.0-48.0 [facility] Comment on above: Performed By: #### C BC #### [facility] [address] [place] [address] Dr. Lisbeth Ramirez Hemoglobin (Bld) [Mass/Vol] 14.0 g/dL Normal 12.0-16.0 [facility] Comment on above: Performed By: #### C BC #### [facility] [address] [place] [address] Dr. Lisbeth Ramirez IG # 0.02 10e3/ul Normal 0.00-0.03 [facility] Comment on above: Performed By: #### C BC #### [facility] [address] [place] [address] Dr. Lisbeth Ramirez IG % 0.2 % Normal 0.0-0.5 [facility] Comment on above: Performed By: #### C BC #### [facility] [address] [place] [address] Dr. Lisbeth Ramirez LYMPH # 1.8 103/ul Normal 1.2-3.8 [facility] Comment on above: Performed By: #### C BC #### [facility] [address] [place] [address] Dr. Lisbeth Ramirez Lymphocytes/100 WBC (Bld) 20.9 % Normal 20.5-60.0 [facility] Comment on above: Performed By: #### C BC #### [facility] [address] [place] [address] Dr. Lisbeth Ramirez MANUAL DIFF REQ NO Normal [facility] Comment on above: Performed By: #### C BC #### [facility] [address] [address] [address] Lisbeth Ramirez MCH (RBC) [Entitic mass] 28.7 pg Normal 26.7-34.0 [facility] Comment on above: Performed By: #### C BC #### [facility] [address] [place] [address] Dr. Lisbeth Ramirez MCHC (RBC) [Mass/Vol] 33.3 g/dL Normal 29.9-35.2 [facility] Comment on above: Performed By: #### C BC #### [facility] [address] [place] [address] Dr. Lisbeth Ramirez MCV (RBC) [Entitic vol] 86.4 fL Normal 81.0-99.0 [facility] Comment on above: Performed By: #### C BC #### [facility] [address] [place] [address] Dr. Lisbeth Ramirez MONO # 0.8 103/ul Normal 0.3-0.8 [facility] Comment on above: Performed By: #### C BC #### [facility] [address] [place] [address] Dr. Lisbeth Ramirez Monocytes/100 WBC (Bld) 8.8 % Normal 1.7-12.0 [facility] Comment on above: Performed By: #### C BC #### [facility] [address] [place] [address] Dr. Lisbeth Ramirez NEUT # 5.8 103/ul Normal 1.4-6.5 [facility] Comment on above: Performed By: #### C BC #### [facility] [address] [place] [address] Dr. Lisbeth Ramirez Neutrophils/100 WBC (Bld) 66.8 % Normal 43.0-75.0 [facility] Comment on above: Performed By: #### C BC #### [facility] [address] [place] [address] Dr. Lisbeth Ramirez Platelet mean volume (Bld) [Entitic vol] 10.5 fL Normal 9.5-13.5 [facility] Comment on above: Performed By: #### C BC #### [facility] [address] [address] [address] Lisbeth Ramirez PLT 222 103/ul Normal 150-450 [facility] Comment on above: Performed By: #### C BC #### [facility] [id number] Lisbeth Ramirez RBC 4.87 106/ul Normal 4.20-5.40 [facility] Comment on above: Performed By: #### C BC #### [facility] [address] [address] [address] Lisbeth Ramirez WBC 8.7 103/ul Normal 4.0-11.0 [facility] Comment on above: Performed By: #### C BC #### [facility] [address] [address] [address] Lisbeth Ramirez FREE THYROXINE INDEX T7on FTI 3.80 Normal 1.30-4.50 [facility] Comment on above: Performed By: #### T SH, CMP, LIPID, T7 ####[facility] [address] [place], [place] [address]OrDr. Lisbeth Ramirez T3U 33.0 % Normal 30.0-39.0 [facility] Comment on above: Performed By: #### T SH, CMP, LIPID, T7 ####[facility] [address] [place], [place] [address]YgDr. Lisbeth Ramirez T4 [Mass/Vol] 11.50 ug/dL Normal 4.80-13.90 [facility] Comment on above: Performed By: #### T SH, CMP, LIPID, T7 ####[facility] [address] [place], [place] [address]SyDr. Lisbeth Ramirez GLYCOHEMOGLOBIN A1Con 2021 ADA RECOMMENDATION SEE BELOW Normal [facility] Comment on above: Result Comment: ADA RECOMMENDED LIMIT 4.0 - 6.0 ADA THERAPEUTIC TARGET < 7.0 ACTION SUGGESTED > 7.0 Performed By: #### A 1C #### [facility] [address] [address] [address] Lisbeth Ramirez Glucose [Mass/Vol] 105 mg/dL Normal [facility] Comment on above: Performed By: #### A 1C #### [facility] [id number] Lisbeth Ramirez HbA1c (Bld) [Mass fraction] 5.3 % Normal 4.5-6.2 [facility] Comment on above: Performed By: #### A 1C #### [facility] [id number] Lisbeth Ramirez IRONon 08-28-2022 Iron [Mass/Vol] 54.0 ug/dL Normal 50.0-170.0 [facility] Comment on above: Performed By: #### I DAGO #### [facility] [address] [address] [address] Lisbeth Ramirez LIPID PROFILEon 08-28-2022 CHOL-HDL RATIO NORM SEE BELOW Normal [facility] Comment on above: Result Comment: 3.3 - 4.4 LOW RISK 4.4 - 7.1 AVERAGE RISK 7.1 - 11.0 MODERATE RISK >11.0 HIGH RISK Performed By: #### T SH, CMP, LIPID, T7 ####[facility] [address] [id number] Ramirez Cholesterol [Mass/Vol] 187 mg/dL Normal <=200 [facility] Comment on above: Performed By: #### T SH, CMP, LIPID, T7 ####[facility] [address] [id number] Ramirez Cholesterol in HDL [Mass/Vol] 67 mg/dL Critically high 40-60 [facility] Comment on above: Performed By: #### T SH, CMP, LIPID, T7 ####[facility] [address] [id number] Ramirez Cholesterol in LDL [Mass/Vol] 95.8 mg/dL Normal [facility] Comment on above: Performed By: #### T SH, CMP, LIPID, T7 ####[facility] [address] [place] [id number] Ramirez Cholesterol.total/Ch olesterol in HDL [Mass ratio] 2.8 {ratio} Normal [facility] Comment on above: Performed By: #### T SH, CMP, LIPID, T7 ####[facility] [address] [address]Dr. Lisbeth Ramirez HDL NORMAL > or = 60 mg/dl - LOW CARDIOVASCULAR RISK <40 mg/dl - HIGH CARDIOVASCULAR RISK Normal [facility] Comment on above: Performed By: #### T SH, CMP, LIPID, T7 ####[facility] [address] [address]Dr. Lisbeth Ramirez LDL CALC NORMAL SEE BELOW Normal [facility] Comment on above: Result Comment: <100 mg/dl OPTIMAL 100 - 129 mg/dl NEAR OR ABOVE OPTIMAL 130 - 159 mg/dl BORDERLINE HIGH 160 - 189 mg/dl HIGH >190 mg/dl VERY HIGH Performed By: #### T SH, CMP, LIPID, T7 ####[facility] [address] [address]Dr. Lisbeth Ramirez Triglyceride [Mass/Vol] 121 mg/dL Normal <=150 [facility] Comment on above: Performed By: #### T SH, CMP, LIPID, T7 ####[facility] [address] [address]Dr. Lisbeth Ramirez VLDL CALC 24.2 mg/dL Normal [facility] Comment on above: Performed By: #### T SH, CMP, LIPID, T7 ####[facility] [address] [address]Dr. Lisbeth Ramirez PROF 14(COMP METB)on 022 Albumin [Mass/Vol] 4.1 g/dL Normal 3.4-5.0 [facility] Comment on above: Performed By: #### T SH, CMP, LIPID, T7 ####[facility] [address] [address]Dr. Lisbeth Ramirez Albumin/Globulin [Mass ratio] 0.9 {ratio} Normal [facility] Comment on above: Performed By: #### T SH, CMP, LIPID, T7 ####[facility] [address] [address]Dr. Lisbeth Ramirez ALP [Catalytic activity/Vol] 94 U/L Normal 46-116 [facility] Comment on above: Performed By: #### T SH, CMP, LIPID, T7 ####[facility] [address] [address]Dr. Lisbeth Ramirez ALT [Catalytic activity/Vol] 13 U/L Critically low 14-59 [facility] Comment on above: Performed By: #### T SH, CMP, LIPID, T7 ####[facility] [address] [address]Dr. Lisbeth Ramirez Anion gap [Moles/Vol] 11.4 mmol/L Normal [facility] Comment on above: Performed By: #### T SH, CMP, LIPID, T7 ####[facility] [address] [address]Dr. Lisbeth Ramirez AST [Catalytic activity/Vol] 23 U/L Normal 15-37 [facility] Comment on above: Performed By: #### T SH, CMP, LIPID, T7 ####[facility] [address] [place] [address]Dr. Lisbeth Ramirez Bilirubin [Mass/Vol] 0.7 mg/dL Normal 0.2-1.0 [facility] Comment on above: Performed By: #### T SH, CMP, LIPID, T7 ####[facility] [address] [place] [address]Dr. Lisbeth Ramirez Calcium [Mass/Vol] 9.5 mg/dL Normal 8.5-10.1 [facility] Comment on above: Performed By: #### T SH, CMP, LIPID, T7 ####[facility] [address] [place] [address]Dr. Lisbeth Ramirez Chloride [Moles/Vol] 104 mmol/L Normal 98-107 [facility] Comment on above: Performed By: #### T SH, CMP, LIPID, T7 ####[facility] [address] [place] [address]Dr. Lisbeth Ramirez CO2 [Moles/Vol] 25.9 mmol/L Normal 21.0-32.0 [facility] Comment on above: Performed By: #### T SH, CMP, LIPID, T7 ####[facility] [address] [place] [address]Dr. Lisbeth Ramirez Creatinine [Mass/Vol] 0.67 mg/dL Normal 0.55-1.02 [facility] Comment on above: Performed By: #### T SH, CMP, LIPID, T7 ####[facility] [address] [place] [address]Dr. Lisbeth James EGFR-AF CYPRIOT >60 Normal >=60 [facility] Comment on above: Performed By: #### T SH, CMP, LIPID, T7 ####[facility] [address] [place] [address]Dr. Lisbeth James EGFR-NON AF CYPRIOT >60 Normal >=60 [facility] Comment on above: Performed By: #### T SH, CMP, LIPID, T7 ####[facility] [address] [place] [address]Dr. Lisbeth James Globulin (S) [Mass/Vol] 4.2 g/dL Normal [facility] Comment on above: Performed By: #### T SH, CMP, LIPID, T7 ####[facility] [address] [place], [place] [address]Dr. Lisbeth James Glucose [Mass/Vol] 103 mg/dL Normal 74-106 [facility] Comment on above: Performed By: #### T SH, CMP, LIPID, T7 ####[facility] [address] [place] [address]Dr. Lisbeth Ramirez Potassium [Moles/Vol] 3.6 mmol/L Normal 3.5-5.1 [facility] Comment on above: Performed By: #### T SH, CMP, LIPID, T7 ####[facility] [address] [place], [place] [address]Dr. Davidajorge Ramirez Protein [Mass/Vol] 8.3 g/dL Critically high 6.4-8.2 [facility] Comment on above: Performed By: #### T SH, CMP, LIPID, T7 ####[facility] [address] [place] [address]Dr. Lisbeth Ramirez Sodium [Moles/Vol] 138 mmol/L Normal 136-145 [facility] Comment on above: Performed By: #### T SH, CMP, LIPID, T7 ####[facility] [address] [place] [address]Dr. Lisbeth Ramirez Urea nitrogen [Mass/Vol] 12.0 mg/dL Normal 7.0-18.0 [facility] Comment on above: Performed By: #### T SH, CMP, LIPID, T7 ####[facility] [address] [place] [address]Dr. Lisbeth Ramirez Urea nitrogen/Creatinine [Mass ratio] 17.9 mg/mg Normal [facility] Comment on above: Performed By: #### T SH, CMP, LIPID, T7 ####[facility] [address] [place] [address]Dr. Lisbeth Ramirez TSHon 08-28-2022 TSH 0.572 uIU/mL Normal 0.358-3.740 [facility] Comment on above: Performed By: #### T SH, CMP, LIPID, T7 ####[facility] [address] [place] [address]Dr. Lisbeth Ramirez UA (CLEAN/CATCH) FLOOR PLAN ADJUSTER/MICRO I F IND.on 06-10-2022 Bilirubin Ql (U) Negative Normal NEGATIVE [facility] Comment on above: Performed By: #### U ACSBLAISE, UMICRO #### [facility] [address] [place] [address] Dr. Lisbeth Ramirez Clarity (U) CLEAR Normal CLEAR [facility] Comment on above: Performed By: #### U ACSIND, UMICRO #### [facility] [address] [address] [address] Lisbeth Ramirez Color (U) YELLOW Normal YELLOW [facility] Comment on above: Performed By: #### U ACSIND, UMICRO #### [facility] [address] [address] [address] Lisbeth Ramirez Glucose Ql (U) Negative Normal NEGATIVE [facility] Comment on above: Performed By: #### U ACSIND, UMICRO #### [facility] [address] [address] [address] Lisbeth Ramirez Hemoglobin Ql (U) MODERATE Abnormal NEGATIVE [facility] Comment on above: Performed By: #### U ACSIND, UMICRO #### [facility] [address] [address] [address] Lisbeth Ramirez Ketones Ql (U) Negative Normal NEGATIVE [facility] Comment on above: Performed By: #### U ACSIND, UMICRO #### [facility] [address] [address] [address] Lisbeth Ramirez LEUKOCYTES TRACE Abnormal NEGATIVE [facility] Comment on above: Performed By: #### U ACSIND, UMICRO #### [facility] [address] [place] [address] Dr. Lisbeth Ramirez Nitrite Ql (U) Negative Normal NEGATIVE [facility] Comment on above: Performed By: #### U ACSBLAISE ICRO #### [facility] [address] [place] [address] Dr. Lisbeth Ramirez pH (U) 6.0 [pH] Normal 5-9 [facility] Comment on above: Performed By: #### U ACSBLAISE, ICRO #### [facility] [address] [place] [address] Dr. Lisbeth Ramirez SPEC GRAVITY 1.025 Normal 1.005-<=1.025 [facility] Comment on above: Performed By: #### U ACSBLAISE UMICRO #### [facility] [address] [place] [address] Dr. Lisbeth Ramirez UA PROTEIN Negative Normal NEGATIVE/ TRACE [facility] Comment on above: Performed By: #### U ACSBLAISE, UMICRO #### [facility] [address] [place] [address] Dr. Lisbeth Ramirez UR MICRO IND INDICATED Normal [facility] Comment on above: Performed By: #### U ACSBLAISE, UMICRO #### [facility] [address] [place] [address] Dr. Lisbeth Ramirez Urobilinogen Qn (U) 0.2 {Ricci'U}/dL Normal 0.2 - 1. 0 [facility] Comment on above: Performed By: #### U ACSIND, UMICRO #### [facility] [address] [place] [address] Dr. Lisbeth Ramirez URINE MICROSCOPIC ONLYon BACTERIA NONE SEEN Normal NONE SEEN [facility] Comment on above: Performed By: #### U ACSIND, UMICRO #### [facility] [address] [place] [address] Dr. Lisbeth Ramirez Bacteria identified Cx Nom (U) NOT INDICATED Normal [facility] Comment on above: Performed By: #### U ACSIND, UMICRO #### [facility] [address] [place] [address] Dr. Lisbeth Ramirez CAST NONE SEEN Normal NONE SEEN [facility] Comment on above: Performed By: #### U ACSIND, UMICRO #### [facility] [address] [place] [address] Dr. Lisbeth Ramirez Crystals LM Nom (Urine sed) NONE SEEN Normal NONE SEEN [facility] Comment on above: Performed By: #### U ACSIND UMICRO #### [facility] [address] [place] [address] Dr. Lisbeth Ramirez Epithelial cells LM Ql (Urine sed) FEW Abnormal NONE SEEN /RARE [facility] Comment on above: Performed By: #### U ACSBLAISE, UMICRO #### [facility] [address] [place] [address] Dr. Lisbeth Ramirez MUCOUS NONE SEEN Normal NONE SEEN [facility] Comment on above: Performed By: #### U ACSIND, UMICRO #### [facility] [address] [place] [address] Dr. Lisbeth Ramirez RBC 2-5 Abnormal 0-2 [facility] Comment on above: Performed By: #### U ACSIND, UMICRO #### [facility] [address] [place] [address] Dr. Lisbeth Ramirez WBC 0-2 Abnormal NONE SEEN [facility] Comment on above: Performed By: #### U ACSIND, UMICRO #### [facility] [address] [address] [address] Lisbeth Ramirez XR knee LT 2Von 01-12-2022 XR knee LT 2V [facility] [place] [address] [place] [address] XRay Report Signed Patient: Richelle Pelaez MR#: [id number] : 1965 Acct:[id number] Age/Sex: 56 / F ADM Date: 01/12/22 Loc: [facility] Room: Type: [facility] CLI Attending [...] Carney Jr., M.D.01/12/2022 4:14 PM Dictation Location: [place] [address] Transcribed By: [facility] 01/12/22 1614 Dictated By: Andrea Carney Jr, MD 01/12/22 1608 Signed By: 01/12/22 1614 Normal [facility] MG MAMM DIAGNOSTIC 3D MARGARITA CA Don 01-01-2022 MG MAMM DIAGNOSTIC 3D MARGARITA CAD Patient: RICHELLE PELAEZ Exam Date: 01/01/2022 : 1965 Gender:F Ordering : DR NORA LINDO M.D. Admission #: [id number] Family : Order #: [id number] CLICK HERE TO VIEW EXAM RADIOLOGY REPORT [...] breast cancer at age 75. LOCATION: [facility] BREAST COMPOSITION: Almost entirely fatty. FINDINGS: [...] M.D. on 01/01/2022 at 15:42 Normal [facility] TSHon 05-22-2019 TSH Qn 2.23 uIU/ml Normal 0.47-4.68 [facility] Comment on above: Performed By: #### 7 50, 800, 1000, 1005, 4500, 4520, 4575 #### [facility] Unless Otherwise Noted [address] [place] [address] / COLA #4724/CLIA # [id number] VITAMIN B12on 05-22-2019 Cobalamin (Vitamin B12) [Mass/Vol] 713.0 pg/mL Normal 239.0-931.0 [facility] Comment on above: Performed By: #### 7 50, 800, 1000, 1005, 4500, 4520, 4575 #### [facility] Unless Otherwise Noted [address] [address] / COLA #4724/CLIA # [id number] AFINION [facility] 05-19-2019 HbA1c (Bld) [Mass fraction] 5.6 G/DL Normal 4.5-6.0 [facility] Comment on above: Performed By: #### 7 50, 800, 1000, 1005, 4500, 4520, 4575 #### [facility] Unless Otherwise Noted [address] [address] / COLA #4724/CLIA # [id number] [facility] Albumin [Mass/Vol] 4.4 g/dL Normal 3.5-5.0 [facility] Comment on above: Performed By: #### 7 50, 800, 1000, 1005, 4500, 4520, 4575 #### [facility] Unless Otherwise Noted [address] [address] / COLA #4724/CLIA # [id number] ALP [Catalytic activity/Vol] 98.0 U/L Normal 38.0-126.0 [facility] Comment on above: Performed By: #### 7 50, 800, 1000, 1005, 4500, 4520, 4575 #### [facility] Unless Otherwise Noted [address] [address] / COLA #4724/CLIA # [id number] ALT [Catalytic activity/Vol] 16.0 U/L Normal 13.0-69.0 [facility] Comment on above: Performed By: #### 7 50, 800, 1000, 1005, 4500, 4520, 4575 #### [facility] Unless Otherwise Noted [address] [address] / COLA #4724/CLIA # [id number] Anion gap [Moles/Vol] 7.0 mmol/L Low 10.0-15.0 [facility] Comment on above: Performed By: #### 7 50, 800, 1000, 1005, 4500, 4520, 4575 #### [facility] Unless Otherwise Noted [address] / COLA #4724/CLIA # [id number] AST [Catalytic activity/Vol] 39.0 U/L Normal 15.0-46.0 [facility] Comment on above: Performed By: #### 7 50, 800, 1000, 1005, 4500, 4520, 4575 #### [facility] [place] Unless Otherwise Noted [address] / COLA #4724/CLIA # [id number] Bilirubin Ql (U) 0.40 mg/dL Normal 0.20-1.30 [facility] Comment on above: Performed By: #### 7 50, 800, 1000, 1005, 4500, 4520, 4575 #### [facility] Unless Otherwise Noted [address] / COLA #4724/CLIA # [id number] BUN/Cre Ratio 18.8 Ratio Normal 7.0-27.0 [facility] Comment on above: Performed By: #### 7 50, 800, 1000, 1005, 4500, 4520, 4575 #### [facility] Unless Otherwise Noted [address] / COLA #4724/CLIA # [id number] Calcium [Mass/Vol] 9.6 mg/dL Normal 8.4-10.2 [facility] Comment on above: Performed By: #### 7 50, 800, 1000, 1005, 4500, 4520, 4575 #### [facility] Unless Otherwise Noted [address] [address] / COLA #4724/CLIA # [id number] Chloride [Moles/Vol] 107.0 mmol/L Normal 98.0-107.0 [facility] Comment on above: Performed By: #### 7 50, 800, 1000, 1005, 4500, 4520, 4575 #### [facility] Unless Otherwise Noted [address] [address] / COLA #4724/CLIA # [id number] CO2 [Moles/Vol] 28.0 mmol/L Normal 22.0-30.0 [facility] Comment on above: Performed By: #### 7 50, 800, 1000, 1005, 4500, 4520, 4575 #### [facility] Unless Otherwise Noted [address] [address] / COLA #4724/CLIA # [id number] Creatinine [Mass/Vol] 0.8 mg/dL Normal 0.5-1.0 [facility] Comment on above: Performed By: #### 7 50, 800, 1000, 1005, 4500, 4520, 4575 #### [facility] Unless Otherwise Noted [address] [address] / COLA #4724/CLIA # [id number] GFR/1.73 sq M predicted among blacks MDRD (S/P/Bld) [Vol rate/Area] 96.9 ml/m1.73 Normal [facility] Comment on above: Performed By: #### 7 50, 800, 1000, 1005, 4500, 4520, 4575 #### [facility] Unless Otherwise Noted [address] [address] / COLA #4724/CLIA # [id number] GFR/1.73 sq M predicted among non-blacks MDRD (S/P/Bld) [Vol rate/Area] 80.1 ml/m1.73 Normal [facility] Comment on above: Performed By: #### 7 50, 800, 1000, 1005, 4500, 4520, 4575 #### [facility] Unless Otherwise Noted [address] [address] / COL[facility] #4724/CLIA # [id number] GFR/1.73 sq M predicted among non-blacks MDRD (S/P/Bld) [Vol rate/Area] 139.1 ml/m1.73 Normal [facility] Comment on above: Performed By: #### 7 50, 800, 1000, 1005, 4500, 4520, 4575 #### [facility] Unless Otherwise Noted [address] [place] [address] / COLA #4724/CLIA # [id number] Glucose [Mass/Vol] 91.0 mg/dL Normal 74.0-106.0 [facility] Comment on above: Performed By: #### 7 50, 800, 1000, 1005, 4500, 4520, 4575 #### [facility] Unless Otherwise Noted [address] [address] / COLA #4724/CLIA # [id number] Potassium [Moles/Vol] 3.9 mmol/L Normal 3.5-5.1 [facility] Comment on above: Performed By: #### 7 50, 800, 1000, 1005, 4500, 4520, 4575 #### [facility] Unless Otherwise Noted [address] [address] / COLA #4724/CLIA # [id number] Protein [Mass/Vol] 7.6 g/dL Normal 6.3-8.2 [facility] Comment on above: Performed By: #### 7 50, 800, 1000, 1005, 4500, 4520, 4575 #### [facility] Unless Otherwise Noted [address] [address] / COLA #4724/CLIA # [id number] Sodium [Moles/Vol] 142.0 mmol/L Normal 137.0-145.0 [facility] Comment on above: Performed By: #### 7 50, 800, 1000, 1005, 4500, 4520, 4575 #### [facility] Unless Otherwise Noted [address] [address] / COLA #4724/CLIA # [id number] Urea nitrogen [Mass/Vol] 15.0 mg/dL Normal 7.0-17.0 [facility] Comment on above: Performed By: #### 7 50, 800, 1000, 1005, 4500, 4520, 4575 #### [facility] Unless Otherwise Noted [address] [address] / COLA #4724/CLIA # [id number] 4on 05-19-2019 Free T4 [Mass/Vol] 1.10 ng/dL Normal 0.64-1.79 [facility] Comment on above: Performed By: #### 7 50, 800, 1000, 1005, 4500, 4520, 4575 #### [facility] Unless Otherwise Noted [address] [address] / COLA #4724/CLIA # [id number] Lipidson 05-19-2019 Cholesterol [Mass/Vol] 209.0 mg/dL High 0.0-199.0 [facility] Comment on above: Performed By: #### 7 50, 800, 1000, 1005, 4500, 4520, 4575 #### [facility] [place] Unless Otherwise Noted [address] [address] / COLA #4724/CLIA # [id number] Cholesterol in HDL [Mass/Vol] 66.0 mg/dL High 40.0-60.0 [facility] Comment on above: Performed By: #### 7 50, 800, 1000, 1005, 4500, 4520, 4575 #### [facility] Unless Otherwise Noted [address] [address] / COLA #4724/CLIA # [id number] Cholesterol in LDL [Mass/Vol] 118.4 mg/dL High 0.0-100.0 [facility] Comment on above: Performed By: #### 7 50, 800, 1000, 1005, 4500, 4520, 4575 #### [facility] Unless Otherwise Noted [address] [address] / COLA #4724/CLIA # [id number] Cholesterol in VLDL [Mass/Vol] 24.6 mg/dL Normal [facility] Comment on above: Performed By: #### 7 50, 800, 1000, 1005, 4500, 4520, 4575 #### [facility] Unless Otherwise Noted [address] [place] [address] / COLA #4724/CLIA # [id number] Cholesterol.total/Ch olesterol in HDL [Mass ratio] 3.2 {ratio} Normal [facility] Comment on above: Performed By: #### 7 50, 800, 1000, 1005, 4500, 4520, 4575 #### [facility] Unless Otherwise Noted [address] [address] / [facility]A #4724/CLIA # [id number] Triglyceride [Mass/Vol] 123.0 mg/dL Normal 0.0-150.0 [facility] Comment on above: Performed By: #### 7 50, 800, 1000, 1005, 4500, 4520, 4575 #### [facility] Unless Otherwise Noted [address] [place] [address] / COL[facility] #4724/CLIA # [id number] NEW MICROALBUMINon 9 Creatinine (U) [Mass/Vol] 128.3 mg/dL Normal [facility] Comment on above: Performed By: #### 7 50, 800, 1000, 1005, 4500, 4520, 4575 #### [facility] Unless Otherwise Noted [address] [address] / [facility] #4724/CLIA # [id number] Microalbumin 37.0 mg/L High 0.0-30.0 [facility] Comment on above: Performed By: #### 7 50, 800, 1000, 1005, 4500, 4520, 4575 #### [facility] Unless Otherwise Noted [address] [facility] [address] [place] [address] / COLA #4724/CLIA # [id number] Urine A/C Ratio 28.8 mg/g Normal 0.0-30.0 [facility] Comment on above: Performed By: #### 7 50, 800, 1000, 1005, 4500, 4520, 4575 #### [facility] Unless Otherwise Noted 20[address] [facility] 100 [place] [address] / COLA #4724/CLIA # [id number] Vital Signs Date Time Vital Sign Value Performing Clinician Facility 08-25-2024 12:39-0400 Body mass index (BMI) [Ratio] 43.48 kg/m2 Faheem Rock LASTING ROOM SUPERVISOR-[employer]ET [employer]ADER Work Phone: [employer] 08-25-2024 12:39-0400 Body weight 107.86 kg Faheem Rock LASTING ROOM SUPERVISOR-[employer]ADER Work Phone: [employer] 08-25-2024 12:39-0400 Diastolic blood pressure 85 mm[Hg] Faheem Rock LASTING ROOM SUPERVISOR-[employer]ASKET GRADER Work Phone: [employer] 08-25-2024 12:39-0400 Heart rate 88 /min Faheem Rock LASTING ROOM SUPERVISOR-[employer]ASKET [employer]ADER Work Phone: [employer] 08-25-2024 12:39-0400 Systolic blood pressure 128 mm[Hg] Faheem Rock LASTING ROOM SUPERVISOR-[employer]ASKET GRADER Work Phone: [employer] 01-12-2022 16:00-0500 Body height 157.48 cm Heath Silva Other [facility] Other 01-12-2022 16:00-0500 Body mass index (BMI) [Ratio] 45.17 kg/m2 Heath Silva Other [facility] Other 01-12-2022 16:00-0500 Body weight 112.04 kg Heath Olexa Other [facility] Other 11-04-2021 10:00-0500 Body height 157.48 cm Heath Olexa Other [facility] Other 11-04-2021 10:00-0500 Body mass index (BMI) [Ratio] 46.82 kg/m2 Heath Olexa Other [facility] Other 11-04-2021 10:00-0500 Body weight 116.12 kg Heath Olexa Other [facility] Other 10-14-2021 14:30-0500 Body height 157.48 cm Heath Olexa Other [facility] Other 10-14-2021 14:30-0500 Body mass index (BMI) [Ratio] 46.16 kg/m2 Heath Olexa Other [facility] Other 10-14-2021 14:30-0500 Body weight 114.49 kg Heath Olexa Other [facility] Other 05-19-2019 18:58-0400 Body weight 107.1 Kg [facility] Comment on above: Performed By: #### 750, 800, 1000, 1005, 4500, 4520, 4575 #### [facility] Unless Otherwise Noted [address] [place] [address] [place], [place] [address] / WILLIE #4724/ANTONY # [id number] Encounters Encounter Date Encounter Type Care Provider Facility Start: 09-19-2024 End: 09-19-2024 Miguel Rock LASTING ROOM SUPERVISOR-[employer]ASKET [employer]ADER Work Phone: [facility] Comment on above: Postablative hypothy roidism Start: 09-04-2024 End: 09-04-2024 ambulatory JOSUE HINOJOSA Not Available Start: 09-04-2024 End: 09-04-2024 Postop follow up visit related to original px Josue Hinojosa DPM Work Phone: [facility] Comment on above: Surgery follow-up ex amination (Primary Dx); Exostosis of left foot; Left foot pain Start: 09-04-2024 End: 09-04-2024 Bamboo flowsheet Josue Huber Ashish DPM Work Phone: [facility] Start: 09-04-2024 End: 09-04-2024 Bamboo flowsheet Josue Huber Ashish DPM Work Phone: [facility] Start: 08-25-2024 End: 08-25-2024 ambulatory [facility] Start: 08-25-2024 End: 08-25-2024 Office outpatient visit 25 minutes Faheem Rock LASTING ROOM SUPERVISOR-BASKET GRADER Work Phone: [facility] Comment on above: Type 2 diabetes lisa itus without complication, without long- term current use of insulin ([facility]) (Primary Dx); Postablative hypothyroidism Start: 08-25-2024 End: 08-25-2024 ambulatory [facility] Start: 08-21-2024 End: 08-21-2024 Postop follow up visit related to original px Josue Hinojosa DPM Work Phone: [facility] Comment on above: Surgery follow-up ex amination (Primary Dx); Exostosis of left foot; Left foot pain Start: 08-21-2024 End: 08-21-2024 ambulatory JOSUE HINOJOSA Not Available Start: 08-21-2024 End: 08-21-2024 Bamboo flowsheet Josue Huber Ashish DPM Work Phone: [facility] Start: 08-21-2024 End: 08-21-2024 Bamboo flowsheet Josue Hinojosa DPM Work Phone: [facility] Start: 08-20-2024 End: 08-21-2024 Refill Faheem Rock LASTING ROOM SUPERVISOR-BASKET GRADER Work Phone: [facility] Comment on above: Type 2 diabetes lisa itus without complication, without long- term current use of insulin ([facility] Start: 08-16-2024 End: 08-16-2024 Office outpatient visit 15 minutes Peri VALDEZ Work Phone: [facility] Comment on above: Acute pain of left k nee (Primary Dx); History of left knee replacement Start: 08-16-2024 End: 08-16-2024 ambulatory PERI NIELSEN Not Available Start: 08-16-2024 End: 08-16-2024 Bamboo flowsheet Peri VALDEZ Work Phone: [facility] Start: 08-16-2024 End: 08-16-2024 Bamboo flowsheet Peri Nielsen PA Work Phone: [facility] Start: 08-14-2024 End: 08-14-2024 Postop follow up visit related to original px Josue Hinojosa DPM Work Phone: [facility] Comment on above: Surgery follow-up ex amination (Primary Dx); Exostosis of left foot; Left foot pain Start: 08-14-2024 End: 08-14-2024 ambulatory JOSUE HINOJOSA Not Available Start: 08-14-2024 End: 08-14-2024 Bamboo flowsheet Josue Hinojosa DPM Work Phone: [facility] Start: 08-14-2024 End: 08-14-2024 Bamboo flowsheet Josue Hinojosa DPM Work Phone: [facility] Start: 08-10-2024 End: 08-10-2024 Bamboo flowsheet Josue Hinojosa DPM Work Phone: [facility] Start: 08-10-2024 End: 08-10-2024 Bamboo flowsheet Josue Hinojosa DPM Work Phone: [facility] Start: 08-10-2024 End: 08-10-2024 ambulatory JOSUE HINOJOSA Not Available Start: 08-10-2024 End: 08-10-2024 Office outpatient visit 15 minutes Josue Hinojosa DPM Work Phone: [facility] Comment on above: Exostosis of left fo ot (Primary Dx); Left foot pain; Osteoarthritis of midtarsal joint of left foot; Osteoarthritis of right ankle and foot Start: 07-24-2024 End: 07-24-2024 ambulatory JOSUE HINOJOSA Not Available Start: 07-04-2024 End: 07-04-2024 ambulatory DIEGO DUNNE Not Available Start: 04-27-2024 End: 04-27-2024 ambulatory JOSUE HINOJOSA Not Available Start: 03-03-2024 End: 03-03-2024 ambulatory [facility] Start: 01-26-2024 End: 01-26-2024 ambulatory JOSUE HINOJOSA Not Available Start: 11-26-2023 End: 11-26-2023 Patient encounter procedure Josue Hinojosa DPM Work Phone: [facility] Comment on above: Primary osteoarthrit is, left ankle and foot (Primary Dx); Primary osteoarthritis, right ankle and foot Start: 11-22-2023 End: 11-22-2023 ambulatory JOSUE HINOJOSA Not Available Start: 11-16-2023 End: 11-16-2023 ambulatory JOSUE HINOJOSA Not Available Start: 11-15-2023 Orders Only Faheem willson LASTING ROOM SUPERVISOR-BASKET GRADER Work Phone: [facility] Comment on above: Postablative hypothy roidism (Primary Dx) Start: 11-12-2023 End: 11-13-2023 ambulatory FAHEEM ROCK [facility] Start: 11-03-2023 End: 11-03-2023 ambulatory JOSUE Huber ASHISH Not Available Start: 04-06-2023 Telephone encounter G Yuri Lindo MD Work Phone: Radiation Oncology Comment on above: Patient Question Start: 12-21-2022 End: 12-22-[address] NORA LINDO Facility:[facility] Start: 09-28-2022 End: 09-28-[address] CHACHA LEDBETTER Facility:[facility] Start: 09-02-2022 Encounter for genera l adult medical examination without abnormal findings DR CHACHA LEDBETTER [facility] Start: 08-28-2022 End: 08-29-[address] CHACHA LEDBETTER Facility:[facility] Start: 08-28-2022 End: 08-29-2022 Encounter for general adult medical examination without abnormal findings DR CHACHA LEDBETTER Facility:[facility] Start: 06-14-2022 Encounter for other preprocedural examination DR DOCTOR SCHULZ [facility] Start: 06-10-2022 End: 06-11-[address] CHACHA LEDBETTER Facility:[facility] Start: 06-10-2022 End: 06-11-2022 Encounter for other preprocedural examination DR CHACHA LEDBETTER Facility:[facility] Start: 02-03-2022 End: 02-03-2022 ambulatory Heath Olexa Other [facility] Other Start: 02-03-2022 Office outpatient vi sit 15 minutes Heath Olexa [facility] [place] [facility] Start: 01-12-2022 End: 01-12-2022 ambulatory Heath Olexa Other [facility] Other Start: 01-12-2022 Office outpatient vi sit 15 minutes Heath Olexa [facility] Start: 01-01-2022 End: 01-02-[address] CHACHA LEDBETTER Facility:[facility] Start: 11-04-2021 End: 11-04-2021 ambulatory Heath Olexa Other [facility] Other Start: 11-04-2021 Office outpatient vi sit 15 minutes Heath Olexa [facility] [place] [facility] Start: 10-14-2021 End: 10-14-2021 ambulatory Heath Silva Other [facility] Other Start: 10-14-2021 Office outpatient vi sit 15 minutes Heath Silva [facility] [place] [facility] [place] Start: 09-11-2021 End: 09-11-2021 ambulatory Heath Silva Other [facility] Other Start: 09-11-2021 Telephone encounter Heath Silva [facility] [place] [facility] Start: 10-24-2018 End: 10-25-2018 Patient encounter procedure DEFAULT PHYSICIAN Facility:[facility] Start: 10-04-2018 Patient encounter procedure Faheem Rock LASTING ROOM SUPERVISOR-BASKET GRADER Work Phone: [facility] Procedures Date Procedure Procedure Detail Performing Clinician Start: 08-25-2024 Gluc bld gluc mntr dev cleared fda spec home use Faheem Rock LASTING ROOM SUPERVISOR-BASKET GRADER Work Phone: Start: 08-25-2024 Microalbumin [Mass/volume] in Urine by Test strip Faheem Rock LASTING ROOM SUPERVISOR-BASKET GRADER Work Phone: Start: 08-17-2024 Radex foot complete minimum 3 views Josue Hinoojsa DPM Work Phone: Start: 08-10-2024 Radex foot complete minimum 3 views Josue Hinojosa DPM Work Phone: Start: 11-12-2023 Microalbumin [Mass/volume] in Urine by Test strip Faheem Rock LASTING ROOM SUPERVISOR-BASKET GRADER Work Phone: Start: 11-15-2018 Mammography Faheem Rock LASTING ROOM SUPERVISOR-BASKET GRADER Work Phone: History of operative procedure on knee History of left knee replacement Peri VALDEZ Work Phone: Plan of Treatment Date Care Activity Detail Author Start: 08-25-2025 Adult BMI Screening [facility] Start: 08-25-2025 Diabetic foot examination [facility] Start: 08-25-2025 [facility] Start: 08-25-2025 Urine screening for protein Urine Microalbumin [facility] Start: 08-17-2025 End: 08-17-2025 Patient encounter procedure 08/17/2025 11:30 AM EDT Office Visit [facility] [address] [facility] [place] [address] Peri Nielsen, PA [address] [facility] [address] [place] [address] [facility] Start: 04-27-2025 End: 04-27-2025 Patient encounter procedure 04/27/2025 11:30 AM EDT Office Visit [facility] [address] [facility] [address] [place] [address] Nadia Sotomayor MD [address] [facility] [address] [place] [address] [facility] Start: 03-03-2025 Adult BMI Screening Adult BMI Screen ing [facility] Start: 03-03-2025 Tobacco Screening Tobacco Screening [facility] Start: 12-29-2024 End: 12-29-2024 Patient encounter procedure 12/29/2024 2:00 PM EST Office Visit [facility] [address] [facility] [address] [place] [address] Faheem Rock, LASTING ROOM SUPERVISOR-BASKET GRADER [address] [facility] [address] [place] [address] [facility] Start: 11-12-2024 Urine screening for protein Urine Microalbumin [facility] Start: 10-25-2024 End: 10-25-2024 Patient encounter procedure 10/25/2024 4:15 PM EST Procedure Visit [facility] [address] [place] [address] Josue Hinojosa DPM [address] [place] [address] [facility] Start: 09-27-2024 End: 09-27-2024 Patient encounter procedure 09/27/2024 4:00 PM EST Office Visit [facility] [address] [place] [phone] Josue Hinojosa, DPM [address] [place] [address] [facility] Start: 09-12-2024 End: 09-12-2024 Patient encounter procedure 09/12/2024 5:45 PM EST Office Visit [facility] [address] [facility] [address] [place] [phone] Diego Dunne, DO [address] [place] [address] [facility] Start: 09-04-2024 End: 09-04-2024 Patient encounter procedure 09/04/2024 4:00 PM EDT Office Visit [facility] [address] [place] [address] Josue Hinojosa, DPM [address] [place] [address] [facility] Start: 09-03-2024 Adult BMI Screening Adult BMI Screen ing [facility] Start: 09-03-2024 Diabetic foot examination Diabetic Foot Exam [facility] Start: 09-03-2024 Tobacco Screening Tobacco Screening [facility] Start: 08-28-2024 End: 08-28-2024 Patient encounter procedure 08/28/2024 4:00 PM EDT Office Visit [facility] [address] [place] [phone] Josue Hinojosa, DPM [address] [place] [address] [facility] Start: 08-25-2024 End: 08-25-2024 Patient encounter procedure 08/25/2024 1:30 PM EDT Office Visit [facility] [address] [place] [address] Faheem Rock, LASTING ROOM SUPERVISOR-BASKET GRADER [address] [place] [address] [facility] Start: 08-21-2024 End: [...] DPSerge [address] [place] [address] [facility] Start: 07-09-2024 COVID-19 Vaccine ( season) COVID-19 Vaccine ( season) [facility] Start: 07-09-2024 COVID-19 Vaccine ( season) COVID-19 Vaccine ( season) [facility] Start: 07-09-2024 Influenza [facility] Start: 07-03-2024 End: 07-03-2024 Patient encounter procedure 07/03/2024 3:00 PM EDT Office Visit [facility] [address] [facility] [address] [place] [address] Peri Nielsen, PA [address] [facility] [address] [place] [address] [facility] Start: 03-03-2024 End: 03-03-2024 Patient encounter procedure 03/03/2024 11:45 AM EDT Office Visit [facility] [address] [place] [phone] Nadia Sotomayor MD [address] [place] [address] [facility] Start: 01-26-2024 End: 01-26-2024 Patient encounter procedure 01/26/2024 4:15 PM EDT Procedure Visit [facility] [address] [place] [address] Josue Hinojosa DPM [address] [place] [address] [facility] Start: 01-10-2024 End: 11-15-2024 Thyroid profile includes TSH FT4 Thyroid profile includes TSH FT4 Lab Routine Postablative hypothyroidism Expected: 01/10/2024 (Approximate), Expires: 11/15/2024 [facility] Work Phone: Comment on above: Expected: 01/10/2024 (Approximate), Expires: 11/15/2024 Start: 07-09-2023 COVID-19 Vaccine ( season) COVID-19 Vaccine ( season) [facility] Start: 07-09-2023 Influenza vaccination [facility] Start: 05-05-2023 Screening for malign ant neoplasm of cervix [facility] Start: 11-08-2022 DEPRESSION ASSESSMENT DEPRESSION ASS ESSMENT [facility] Start: 01-16-2022 COVID-19 VACCINE (4 - Booster for Pfizer series) COVID-19 VACCINE (4 - Booster for Pfizer series) [facility] Start: 10-04-2021 DIABETES SCREEN DIABETES SCREEN [facility] Start: 11-15-2019 Screening for malign ant neoplasm of breast Mammogram [facility] Start: 2017 SHINGRIX VACCINE (1 of 2) SHINGRIX VACCINE (1 of 2) [facility] Start: 2012 COLOGUARD (FIT-DNA) COLOGUARD (FIT-D NA) [facility] Start: [address] [facility] Start: 2012 COLORECTAL CANCER SCREENING COLORECTAL CANCER SCREENING [facility] Start: [address] COLONOGRAPHY [facility] Start: 2012 FECAL OCCULT BLOOD FECAL OCCULT BLOO D [facility] Start: 2012 LIPID SCREEN LIPID SCREEN [facility] Start: 2012 SIGMOIDOSCOPY SIGMOIDOSCOPY [facility] Start: [address] [facility] Start: 1997 HPV TESTING HPV TESTING [facility] Start: 1997 Screening for malign ant neoplasm of cervix [facility] Start: 1988 PAP TESTING PAP TESTING [facility] Start: 1988 Screening for malign ant neoplasm of cervix Pap Smear [facility] Start: 1986 Administration of varicella zoster vaccine Zoster (Shingles) Vaccine (1 of 2) [facility] Start: 1986 DTaP,Tdap and Td Vaccines (1 - Tdap) DTaP,Tdap and Td Vaccines (1 - Tdap) [facility] Start: 1986 Urine microalbumin profile DTAP,TDAP,TD (1 - Tdap) [facility] Start: 1985 HEPATITIS C SCREENING HEPATITIS C SC REENING [facility] Start: 1985 HIV SCREENING HIV SCREENING [facility] Start: 1979 Depression Screening Depression Scre ening [facility] Start: 1967 Glaucoma screening Diabetic Op hthalmology Exam [facility] Start: 1967 HEPATITIS B (1 of 3 - 3-dose series) HEPATITIS B (1 of 3 - 3-dose series) [facility] Start: 1967 Screening for malign ant neoplasm of colon [facility] End: 08-25-2025 Comprehensive metabolic 2000 panel - Serum or Plasma Comprehensive metabolic panel Lab Routine Type 2 diabetes mellitus without complication, without long-term current use of insulin (CMS-HCC) 1 Occurrences starting 08/25/2024 until 08/25/2025 [employer] Work Phone: Comment on above: 1 Occurrences starti ng 08/25/2024 until 08/25/2025 End: 08-25-2025 Cyanocobalamin vitamin b-12 Vitamin B12 Lab Routine Type 2 diabetes mellitus without complication, without long-term current use of insulin ([facility]) 1 Occurrences starting 08/25/2024 until 08/25/2025 [facility] Comment on above: 1 Occurrences starti ng 08/25/2024 until 08/25/2025 End: 08-25-2025 Lipid 1996 panel - Serum or Plasma Lipid profile Lab Routine Type 2 diabetes mellitus without complication, without long-term current use of insulin ([facility]) 1 Occurrences starting 08/25/2024 until 08/25/2025 [facility] Comment on above: 1 Occurrences starti ng 08/25/2024 until 08/25/2025 End: 08-25-2025 Microalbumin - Albumin: Creatinine Urine Ratio Microalbumin - Albumin: Creatinine Urine Ratio Lab Routine Type 2 diabetes mellitus without complication, without long-term current use of insulin ([facility]) 1 Occurrences starting 08/25/2024 until 08/25/2025 [facility] Comment on above: 1 Occurrences starti ng 08/25/2024 until 08/25/2025 End: 08-25-2025 Thyroid profile includes TSH FT4 Thyroid profile includes TSH FT4 Lab Routine Postablative hypothyroidism 1 Occurrences starting 08/25/2024 until 08/25/2025 [facility] Comment on above: 1 Occurrences starti ng 08/25/2024 until 08/25/2025 XR Knee - left 1 or 2 Views XR knee 1 or 2 views left Imaging Routine Acute pain of left knee 08/16/2024 3:04 PM EDT [facility] Work Phone: Immunizations Immunization Date Immunization Notes Care Provider Fa cility NEGATED: Highlighted row has not occurred!10-21-2018 influenza, injectable, quadrivalent, preservative free 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 2022 Private Health Insurance [id number] 2020 Unknown 1967 Unknown [id number] 2.16.840.1.389868.3.579. 2.647 1967 Unknown [id number] 2.16.840.1.446747.3.579. 2.593 1967 Unknown [id number] 2.16.840.1.770946.3.579. 2.593 1967 Unknown [id number] 2.16.840.1.826058.3.579. 2.593 1967 Unknown [id number] 2.16.840.1.557262.3.579. 2.593 1967 Unknown [id number] 2.16.840.1.849988.3.579. 2.593 1967 Unknown [id number] 2.16.840.1.988816.3.579. 2.1286 1967 Unknown [id number] 2.16.840.1.208554.3.579. 2.1286 1967 Unknown [id number] 2.16.840.1.417287.3.579. 2.1286 1967 Unknown [id number] 2.16.840.1.463433.3.579. 2.1286 1967 Unknown [id number] 2.16.840.1.339460.3.579. 2.1285 1967 Unknown [id number] 2.16.840.1.148416.3.579. 2.1258 1967 Unknown [id number] 2.16.840.1.017661.3.579. 2.1258 1967 Unknown [id number] 2.16.840.1.680711.3.579. 2.1258 1967 Unknown [id number] 2.16.840.1.089634.3.579. 2.1258 1967 Unknown [id number] 2.16.840.1.950060.3.579. 2.1258 1967 Unknown [id number] 2.16.840.1.397688.3.579. 2.1258 1967 Unknown [id number] 2.16.840.1.986012.3.579. 2.1258 1967 Unknown [id number] 2.16.840.1.383398.3.579. 2.1258 1967 Unknown [id number] 2.16.840.1.656303.3.579. 2.1258 1967 Unknown [id number] 2.16.840.1.777854.3.579. 2.1258 1967 Unknown [id number] 2.16.840.1.840462.3.579. 2.1258 1967 Unknown [id number] 2.16.840.1.875520.3.579. 2.1258 1967 Unknown [id number] 2.16.840.1.316621.3.579. 2.1259 1959 Unknown [id number] 2.16.840.1.714824.19 1959 Unknown [id number] Social History Date Type Detail Facility Start: 10-07-2018 End: 12-19-2020 Sex Assigned At [facility] Jeannine [employer] Other Start: 09-22-2012 End: 10-21-2022 Tobacco smoking status NHIS Never smoked tobacco [facility] Start: 09-22-2012 End: 10-21-2022 Tobacco use and exposure Smokeless tobacco non-user [facility] Start: 06-25-2022 Alcohol intake Not Asked Iraida baron [facility] Start: 1965 Sex Assigned At Not on file [facility] Start: 09-03-2023 End: 08-25-2024 Alcohol intake Current drinker of alcohol (finding) [facility] Start: 10-07-2018 End: 12-19-2020 History of Social function [facility] Frequency of Alcohol Consumption Never [facility] Start: 11-02-2018 Alcohol Comment Rarely [facility] Start: 07-05-2023 Alcohol Comment caffeine intak e: 1-2 cups per day. [facility] Start: 06-13-2015 Sex Female (finding) [facility] Medical Equipment Procedure Code Equipment Code Equipment Origin al Text Equipment Identifier Dates TEST ONCE DAILY [id number] Start: 05-23-2019 Monitor blood lyons gar daily [id number] Start: 11-03-2018 Goals Date Patient Goal Desired [...] toe. Surgery was performed on 08/11/2024 at [facility]. Patient complains of pain 0. Current symptoms [...] will follow-up then. documented in this encounter [facility] 08-21-2024 History of Presen t illness Narrative Images from the original note were not included. HPI: Richelle Pelaez presents today for post-op appointment of removal of bone left 3rd toe. Surgery was performed on 08/11/2024 at [facility]. Patient complains of pain 4. Current symptoms [...] 3+ views left 3. Left foot pain M79.678 Plan: Surgery Follow-up Examination: Sutures were removed [...] RTC: 3 weeks. documented in this encounter [facility] 08-16-2024 History of Presen t illness Narrative [...] Use: Not At Risk (10/07/2018) Received from [employer], [facility] Frequency of Alcohol Consumption: Never Average [...] requiring urgent evaluation. documented in this encounter [facility] 08-14-2024 History of Presen t illness Narrative Images from the original note were not included. HPI: Richelle Pelaez presents today for post-op appointment of removal of bone left 3rd toe. Surgery was performed on 08/11/2024 at [facility]. Patient complains of pain 8. Current symptoms [...] for suture removal. documented in this encounter [facility] 08-10-2024 History of Presen t illness Narrative Images from the original note were not included. HPI: Patient presents today for their pre-operative appointment. The patient is scheduled for removal of bone left 3rd toe at [facility] with Dr. Hinojosa on 08/11/2024 at 7:30 [...] Patient was dispensed their postoperative prescriptions including: [employer]. A post-operative shoe was also dispensed for [...] days after surgery. documented in this encounter [facility] 03-03-2024 History of Presen t illness Narrative [...] Medical History: Diagnosis Date Asthma Breast cancer ([facility]) Right breast 2011 DCIS Depression Disease of thyroid gland DM type 2 (diabetes mellitus, type 2) ([facility]) Dry skin Endometrial hyperplasia GERD (gastroesophageal reflux [...] pg/mL Final Lab Results Component Value Date TIOBRUK4O 5.7 08/25/2024 EJSRIAD4H 5.5 03/03/2024 GOHSQCZ4H 5.6 09/03/2023 Hemoglobin A1C Date Value Ref [...] complication, without long-term current use of insulin ([facility]) - POCT Glucose Fingerstick - POCT Hemoglobin [...] injury. RETURN TO CLINIC: 4 months RAYNA Guaamn 08/25/24 1256 documented in this encounter [facility] 11-26-2023 History of Presen t illness Narrative See scanned Op note documented in this encounter [facility] 04-06-2023 Miscellaneous Notes I left a message [...] Courtney Garcia LPN documented in this encounter [facility] 02-03-2022 Evaluation note Encounter Date Diagnosis [...] aid in pain relief at the knee. [facility] Other 03-07-2022 Evaluation note* Encounter Date Diagnosis [...] Other specified postprocedural states (ICD-10 - Z98.890) [facility] Other 12-28-2021 Evaluation note* Encounter Date Diagnosis [...] - Z98.890) Patient off work until 11/19/21 [facility] Other 12-07-2021 Evaluation note* Encounter Date Diagnosis [...] work for off work until next appointment [facility] Other Evaluation noteNo [employer]Nort [employer] Other Evaluation note* Diagnosis Postablative hypothyroidism- Primary Other postablative hypothyroidism [facility]* Diagnosis Primary osteoarthritis, left ankle and foot- Primary Primary osteoarthritis, right ankle and foot documented in this encounter [facility]* Diagnosis Exostosis of left foot- Primary Left foot pain Pain in soft tissues of limb Osteoarthritis of midtarsal joint of left foot Osteoarthritis of right ankle and foot documented in this encounter [facility] Healthcare[facility] note* Diagnosis Acute pain of left knee- Primary History of left knee replacement documented in this encounter [facility] HealthcareEvaluation note* Diagnosis Surgery follow-up examination- Primary Follow-up examination, following unspecified surgery Exostosis of left foot Left foot pain Pain in soft tissues of limb documented in this encounter [facility] HealthcareEvaluation note* Diagnosis Type 2 diabetes mellitus without complication, without long-term current use of insulin ([facility]) Type 2 diabetes mellitus without complication, without long-term current use of insulin ([facility])- Primary Postablative hypothyroidism Other postablative hypothyroidism documented in this encounter [facility]* Diagnosis Surgery follow-up examination- Primary Follow-up examination, following unspecified surgery Exostosis of left foot Left foot pain Pain in soft tissues of limb documented in this encounter [facility] HealthcareEvaluation note* Diagnosis Type 2 diabetes mellitus without complication, without long-term current use of insulin ([facility])- Primary Postablative hypothyroidism Other postablative hypothyroidism documented in [facility] Diagnosis Postablative hypothyroidism Other postablative hypothyroidism documented in this encounter [facility] Narrative - Reported* Type Description Date Medical History asthma Medical History thyroid disease Medical History high blood pressure Medical History diabetes mallitus Medical History high cholesterol Medical History breast nodule Surgical History hysterectomy Surgical History foot surgeries Surgical History sinus surgery Surgical History left knee arthroscopy, medial m enisecectomy. DOS 07/08/21 [facility] Other InstructionsNot on filedocumented in this encounter [facility] SystemInstructionsNot on filedocumented in this encounter [facility] Summary Purpose Family History No Family [...] section and content) DATE CREATED AUTHOR 10/27/2018 [facility] DATE CREATED AUTHOR AUTHOR'S ORGANIZ ATION [facility] DATE CREATED AUTHOR AUTHOR'S ORGANIZ ATION 01/13/2022 [facility] DATE CREATED AUTHOR AUTHOR'S ORGANIZ ATION 12/26/2022 [facility] DATE CREATED AUTHOR AUTHOR'S ORGANIZ ATION 04/16/2023 [facility] DATE CREATED AUTHOR AUTHOR'S ORGANIZ ATION 11/14/2023 [facility] DATE CREATED AUTHOR AUTHOR'S ORGANIZ ATION 08/28/2024 [facility] DATE CREATED AUTHOR AUTHOR'S ORGANIZ ATION 08/28/2024 [facility] DATE CREATED AUTHOR AUTHOR'S ORGANIZ ATION 09/05/2024 [facility] EPIC REASON FOR VISIT (unrecogniz [...] or prosecute any alcohol or drug abuse patient.[facility] Care Teams (unrecognized sec tion and content) Kickboxing Instructor Relationship Specialty Start Date End Date Chacha Ledbetter MD PCP - General Family Medicine 08/30/19 Kickboxing Instructor Relationship Specialty Start Date End Date Chacha Ledbetter MD [address] [place] [address] PCP - General Family Medicine 10/21/22 Kickboxing Instructor Relationship Specialty Start Date End Date Chacha Ledbetter MD [address] [place] [address] PCP - General Family Medicine 04/27/23 Kickboxing Instructor Relationship Specialty Start Date End Date Chacha Ledbetter MD [address] [place] [address] PCP - General Family Medicine 04/27/23 Diego Dunne DO [address] [place] [address] Referring Physician Neurology 01/04/24 Kickboxing Instructor Relationship Specialty Start Date End Date Chacha Ledbetter MD [address] [place] [facility] [address] PCP - General Family Medicine 04/27/23 Diego Dunne DO [address] [place] [address] Referring Physician Neurology 01/04/24 Kickboxing Instructor Relationship Specialty Start Date End Date Chacha Ledbetter MD [address] [place] [facility] [address] PCP - General Family Medicine 04/27/23 Diego Dunne DO [address] [place] [address] Referring Physician Neurology 01/04/24 Kickboxing Instructor Relationship Specialty Start Date End Date Chacha Ledbetter MD [address] [place] [facility] [address] PCP - General Family Medicine 04/27/23 Diego Dunne DO [address] [place] [address] Referring Physician Neurology 01/04/24 Kickboxing Instructor Relationship Specialty Start Date End Date Chacha Ledbetter MD PCP - General Family Medicine 10/21/22 Kickboxing Instructor Relationship Specialty Start Date End Date Chacha Ledbetter MD [address] [place] [facility] [address] PCP - General Family Medicine 04/27/23 Diego Dunne DO [address] [place] [address] Referring Physician Neurology 01/04/24 Kickboxing Instructor Relationship Specialty Start Date End Date Chacha Ledbetter MD PCP - General Family Medicine 10/21/22 Kickboxing Instructor Relationship Specialty Start Date End Date Chacha Ledbetter MD [address] [place] [address] [place] [address] PCP - General Family Medicine 04/27/23 Diego Dunne DO [address] [place] [address] Referring Physician Neurology 01/04/24 Kickboxing Instructor Relationship Specialty Start Date End Date Chacha [...] BE BASED ON THE PRIMARY CLINICAL RECORDS. [facility]. provides no warranty or guarantee of the accuracy or completeness of information in this document.
== END 2024-09-30 14:14 | disposition home or self-care (01) ==
LOC: LAB 10-04 14:13
PROVIDERS: PCP Family Medicine; Visit Provider Family Medicine
DX: Z00.00 Encounter for general adult medical examination without abnormal findings (principal)
CPT/HCPCS: 36415; 80053; 80061; 83036; 83540; 84436; 84443; 84481; 85025

== ENCOUNTER 2024-11-14 10:44 | Outpatient (OUT) | payer OTHER, SELFPAY ==
[2024-11-14 11:06] LABS: Basophils Absolute Auto 0.1 10^3/uL (0.0-0.1); Eosinophils Absolute Auto 0.2 10^3/uL (0.0-0.7); Eosinophils Percent Auto 2.2 % (0.9-7.0); Hematocrit 44.8 % (36.0-48.0); Hemoglobin 14.7 g/dL (12.0-16.0); Immature Granulocytes Abs Auto 0.03 10^3/uL (0.00-0.03); Immature Granulocytes Pct Auto 0.3 % (0.0-0.5); Lymphocytes Absolute Auto 2.1 10^3/uL (1.2-3.8); Mean Corpuscular HGB Conc 32.8 g/dL (29.9-35.2); Mean Corpuscular Hemoglobin 29.3 pg (26.7-34.0); Mean Corpuscular Volume 89.4 fL (81.0-99.0); Mean Platelet Volume 10.4 fL (9.5-13.5); Neutrophils Absolute Auto 6.5 10^3/uL (1.4-6.5); Neutrophils Percent Auto 65.5 % (43.0-75.0); Platelet Count 186 10^3/uL (150-450); Red Blood Count 5.01 10^6/uL (4.20-5.40); Red Cell Distribution Width 13.4 % (11.0-15.0); White Blood Count 9.9 10^3/uL (4.0-11.0)
--- NOTE | 2024-11-14 11:10 | XR_ITS ---
The [address] [address] Patient Name: RICHELLE MONTES MRN: [id number] date: 1965 Sex: F Assigned Patient Location: LAB Current Patient Location: LAB Accession/Order Number: [id number] Exam Date: 11/14/2024 11:02 Report Date: 11/14/2024 15:21 At the request of: CHACHA EVANS Procedure: XR chest 2V EXAM: XR chest 2V HISTORY: Chest Pain COMPARISON: 11/14/2018 TECHNIQUE: Upright PA and lateral chest x-ray FINDINGS: The heart is not enlarged and the vasculature is not distended. No acute infiltrate, effusion or pneumothorax is identified. The osseous structures are grossly intact. XR/XR chest 2V IMPRESSION: No acute infiltrate or evidence of cardiac decompensation. The overall appearance of the chest is essentially unchanged. Electronically authenticated by: AILYN PETERS Date: 11/14/2024 15:21
[2024-11-14 11:49] LABS: Alanine Aminotransferase 20 U/L (14-59); Albumin Level 3.9 g/dL (3.4-5.0); Alkaline Phosphatase 102 U/L (46-116); Anion Gap 9.6; Aspartate Amino Transferase 27 U/L (15-37); BUN Creatinine Ratio 21.2; Bilirubin Total 0.7 mg/dL (0.2-1.0); C Reactive Protein 0.94 mg/dL (<=0.50); Calcium 9.6 mg/dL (8.5-10.1); Chloride 106 mmol/L (98-107); Estimated GFR (African America >60 (>=60 mL/min/1.73m^2); Estimated GFR (Non-African Ame >60 (>=60 mL/min/1.73m^2); Free T3 2.22 pg/mL (2.18-3.98); Glucose 104 mg/dL (74-106); Potassium 3.6 mmol/L (3.5-5.1); Sodium 143 mmol/L (136-145); Thyroid Stimulating Hormone 1.015 uIU/mL (0.358-3.740); Total Protein 7.9 g/dL (6.4-8.2); Troponin I High Sensitivity 7.8 pg/mL (4.0-51.3)
== END 2024-11-14 10:45 | disposition home or self-care (01) ==
LOC: LAB 10:45
PROVIDERS: PCP Family Medicine; Visit Provider Family Medicine
DX: R07.9 Chest pain, unspecified (principal); I10 Essential (primary) hypertension; I11.0 Hypertensive heart disease with heart failure
CPT/HCPCS: 36415; 71046; 80053; 83690; 83880; 84436; 84443; 84481; 84484; 85025; 86140

== ENCOUNTER 2024-12-04 09:16 | Outpatient (OUT) | payer OTHER, SELFPAY ==
--- NOTE | 2024-12-04 | PCN_ITS ---
CARDIAC STRESS TEST Requesting Physician: Procedure Date: 12/04/2024 INDICATION: Chest pain. METHOD: After risks, benefits, and alternatives were explained, written informed consent was obtained. The patient was brought to the Stress Lab in a resting and fasting state. She was connected to the appropriate hemodynamic and electrocardiographic monitoring. She underwent a Joshua protocol for exercise. At peak exercise, Technetium Cardiolite was injected. She tolerated the procedure well. There were no complications. STRESS TEST INFORMATION: Hemodynamics: The patient exercised for 1 minute and 33 seconds, achieving stage 1 of the Joshua protocol and 4.20 METS. Resting blood pressure was 148/101 with a maximum blood pressure of 160/110. Resting heart rate was 80 beats per minute, increasing to a maximum of 144 beats per minute, which is 88% of maximum predicted heart rate. The patient had shortness of breath which resolved prior to leaving the lab. ELECTROCARDIOGRAPHY: Rest EKG: Showed sinus rhythm, 91 beats per minute, non-specific ST-T wave changes. Abnormal resting EKG. During exercise and recovery: No significant ST-T wave changes noted. Infrequent premature ventricular contractions seen. FINAL IMPRESSIONS: 1. No ischemic ST-T wave changes seen on treadmill Cardiolite stress test. 2. Poor functional capacity. 3. Infrequent premature ventricular contractions. 4. Oneil treadmill score is 1.3. Estimated one year mortality is 1.0-1.1%. Risk category: Moderate risk. Angiography may be indicated. 5. Nuclear images are to be read, interpreted and reported in a separate dictation. [facility]
--- NOTE | 2024-12-04 08:15 | NM_ITS ---
Patient Name: RICHELLE MONTES MR#: [id number] : 1965 Exam Date: 12/04/2024 Ordering Doctor: DR Nick Ledbetter . RADIOLOGY REPORT PROCEDURE: NM OMID PERF SPECT REST STR COMPARISON: None. INDICATIONS: CHEST PAIN TECHNIQUE: Exam Description: Stress/Rest two day protocol gated SPECT Rest Imagin.7 mCi Tc-99m Cardiolite IV on 12/04/2024 Stress Imaging 29.4 mCi Tc-99m Cardiolite IV on 12/04/2024 Exercise Protocol: Modified Joshua Heart Rate (bpm): Rest: 88 Max: 144 PMHR: 88 Blood Pressure: Rest: 148/101 Max: 160/110 Exercise Time: Minutes: 1 Seconds: 33 Stage Reached: Stage: 1 Mets 4.2 Symptoms: Rest and peak stress ECG findings were normal and the exercise portion of the study was normal per attending physician Dr. Daily . For more details please see separate cardiac stress test report. FINDINGS: QUALITY OF STUDY: Good. PERFUSION DEFECT: LOCATION: Mid-anterior. Mid-anteroseptal. Apical inferior. SIZE: Medium (3-4 segments). SEVERITY: Mild. TYPE: Persistent. WALL MOTION: Normal. LV SIZE: Normal. 100 mL. TID / TCD: 0.8 LVEF: Abnormal. Calculated EF 53%. SUMMARY: Myocardial perfusion imaging study has ABNORMAL findings. CONCLUSION: 1. Areas of fixed perfusion abnormality in the anterior and inferior wall detailed above, no redistribution on rest images to suggest reversible ischemia 2. Low left ventricular ejection fraction of 53% 3. Normal exercise test Dictated by: Srinivasan Magdaleno MD on 12/05/2024 at 12:02 Approved by: Srinivasan Magdaleno MD on 12/05/2024 at 12:05
--- NOTE | 2024-12-04 11:25 | PC.NURSE ---
Nursing Note Cardiac Stress Test Reviewed: Medication, allergies and patient history reviewed. Stress Test: [ ] Patient tolerated stress test well. [x ] Patient unable to tolerate walking on treadmill. [ ] No chest pain noted per patient [ ] Chest pain that resolved prior to leaving stress lab. [ ] No dyspnea noted. [ x] Dyspnea that resolved prior to leaving stress lab. [ x] Patient left stress lab asymptomatic and hemodynamically stable. [ ] Patient taken to the Emergency Room due to non-resolving symptoms following stress test. [ x] Patient achieved target heart rate. [ ] Patient unable to achieve target heart rate. [ ] Aminophylline administered as reversal agent to Lexiscan (Regadenoson). [ ] Nitro administered. Nursing Comments: Prior to the initiation of the exam, both Alessia and myself reviewed Carly scan administration, how long it lasts in the body, symptoms and reversal agents with the patient. We also explained the treadmill protocol (ISAURO) and target heart rate with the patient. Patient states I do not want that medication in my system and I will not do the chemical version of the exam, I will only walk on the treadmill. Patient informed staff she has some physical limitations that make walking on the treadmill difficult. Again, we explained the need to get to target heart rate and to walk a minimum of 4 minutes to ensure the blood vessels are dilated. She verbalizes understanding. We informed her that if she is unable to meet those requirements that the exam may not be used diagnostically. She verbalized understanding and stated I did not want to do this test any ways, I do not think I need it and I will deal with my doctor later. Patient was placed on the treadmill, she initially refused to allow the staff to initiate the ISAURO protocol because she felt unsafe on the treadmill. We did verify she wanted to continue to complete the exam and asked if she felt safe to do so, which she stated she did. We did initiate the protocol and she was able to reach target heart rate at which time cardiolyte was injected.
== END 2024-12-04 09:17 | disposition home or self-care (01) ==
LOC: NM 09:16
PROVIDERS: PCP Family Medicine; Visit Provider Family Medicine
DX: R07.9 Chest pain, unspecified (principal)
CPT/HCPCS: 78452; 93017; A9500

== ENCOUNTER 2025-01-30 16:23 | Outpatient (OUT) | payer OTHER, SELFPAY ==
--- NOTE | 2025-01-30 | MM_ITS ---
Patient Name: RICHELLE MONTES MR#: [id number] : 1965 Exam Date: 01/30/2025 Ordering Doctor: DR Nick Ledbetter . RADIOLOGY REPORT PROCEDURE: MM TOMOSYNTHESIS SCREENING BI COMPARISON: MM TOMOSYNTHESIS SCREENING BI, 12/31/2023. MG MAMM DIAGNOSTIC 3D MARGARITA CAD, 12/21/2022. MG MAMM DIAGNOSTIC 3D MARGARITA CAD, 01/01/2022. MG MAMM SCREEN MARGARITA W CAD, 09/26/2011. INDICATIONS: Margarita Screening Mamm Calculator Name [facility] Breast Cancer Risk Assessment Tool 5 Year Breast Cancer Risk n/a% Lifetime Breast Cancer Risk n/a% Personal Breast Cancer Yes Personal Ovarian Cancer No Treatments Breast cancer right breast Age 47 Chemo/Radiation with lumpectomy Family Cancers Mother with breast cancer at age 42; Grandmother-maternal with breast cancer at age 73. LOCATION: [facility] BREAST COMPOSITION: The breasts are almost entirely fatty. FINDINGS: Left biopsy marking clip redemonstrated. Stable benign calcifications. Stable right lumpectomy changes. DIAGNOSTIC CATEGORY 2--BENIGN FINDING: RECOMMENDATIONS: ROUTINE MAMMOGRAM AND CLINICAL EVALUATION IN 12 MONTHS. PLEASE NOTE: A NORMAL MAMMOGRAM DOES NOT EXCLUDE THE POSSIBILITY OF BREAST CANCER. A CLINICALLY SUSPICIOUS PALPABLE LUMP SHOULD BE BIOPSIED. Dictated by: Donn Watts DO on 01/30/2025 at 16:59 Approved by: Donn Watts DO on 01/30/2025 at 17:02
--- OUTSIDE RECORDS SUMMARY | 2025-01-30 16:29 | XMS_ITS | CCD ---
Author Organization [facility] Care Team Providers Care Audio Installer Name Role Phone PHYSICIAN, DEFAULT Unavailable Unavailable PHYSICIAN, DEFAULT Unavailable Unavailable JUICE NAPOLES Unavailable Unavailable Heath Silva Unavailable CRISTINA, DR BURNHAM Primary Care Unavailable ENGELER, DR NORA Zamorano Admitting Unavailable ENGELER, DR NORA Zamorano Consulting Unavailable ENGELER, DR NORA Zamorano Attending Unavailable ZIEBER, DR MOSHE Farrar Consulting Unavailable CRISTINA, DR BURNHAM Primary Care Unavailable MISC, DR BOWERS Attending Unavailable MISC, DR BOWERS Admitting Unavailable MISC, DR BOWERS Consulting Unavailable ANNE-MARIEY, DR BURNHAM Primary Care Unavailable HOY, DR BURNHAM Consulting Unavailable ANNE-MARIEY, DR BURNHAM Attending Unavailable HOY, DR BURNHAM [...] Unavailable Chacha Ledbetter MD Primary Care Provider [phone] Diego Dunne DO Unavailable NADIA SOTOMAYOR Attending Unavailable CHACHA LEDBETTER Referring Unavailable CHACHA LEDBETTER Primary Care Unavailable FAHEEM ROCK Attending Unavailable CHACHA LEDBETTER Referring Unavailable CHACHA LEDBETTER Primary Care Unavailable Chacha Ledbetter MD Primary Care Provider [phone] Chacha Ledbetter MD Primary Care Provider [phone] CHACHA LEDBETTER Referring Unavailable CHACHA LEDBETTER Primary [...] HINOJOSA Attending Unavailable JOSUE HINOJOSA Attending Unavailable DIPESH RASCON Referring Unavailable DIPESH RASCON Attending Unavailable Medications Current Medications Medication Drug Class(es) Dates Sig (Normalized) Sig (Original) [id number] 200 actuat albuterol 0.09 mg/actuat metered dose [...] on above: TK 1 T PO QD amoxicillin 500 mg oral tablet (3 sources) Penicillin-class Antibacterial Start: 11-20-2024 take 4 tablets by mouth once at mealtime amoxicillin (Amoxil) 500 MG tablet Indications: History of left knee replacement 4 tabs PO once 30-60 mins before procedure with food 4 tablet 3 11/20/2024 Active cholecalciferol 0.025 mg oral tablet (3 sources) [...] Active doxepin hydrochloride 10 mg oral capsule (20 sources) Tricyclic Antidepressant Start: 07-04-2024 doxepin (SINEquan) 10 MG capsule Indications: Insomnia, unspecified type 2 po q hs 180 capsule 1 07/04/2024 Active Start: 06-21-2024 End: 07-04-2024 take 2 capsules by mouth at bedtime doxepin (SINEquan) 10 MG capsule Indications: Insomnia, unspecified type TAKE 2 CAPSULES BY MOUTH AT BEDTIME 180 capsule 06/21/2024 07/04/2024 Discontinued (Reorder) take 1 capsule by mo uth once daily doxepin (SINEquan) 10 mg capsule Take 1 capsule (10 mg total) by mouth nightly. Active ferrous sulfate 325 mg oral tablet (3 sources) take 1 tablet by mouth every twenty-four hours Iron 325 (65 Fe) MG 1 tablet Orally Once a day Active fluocinonide 0.0005 mg/mg topical ointment (20 sources) Corticosteroid Start: 023 fluocinonide (Lidex) 0.05 % ointment APPLY TOPICALLY TO HANDS AND KNEES TWICE DAILY 03/10/2023 Active Iron (3 sources) take 1 tablet by mouth once daily Iron 325 (65 Fe) MG 1 tablet Orally Once a day Active levoFLOXacin 500 mg oral tablet (20 sources) Quinolone Antimicrobial Start: 022 take 1 tablet by mouth in the morning levoFLOXacin (Levaquin) 500 MG tablet Take 1 tablet by mouth in the morning. 10/22/2022 Active levothyroxine sodium 0.15 mg oral tablet (20 sources) l-Thyroxine Start: 023 End: 024 levothyroxine (Synthroid, Levoxyl) 150 MCG tablet Daily. 04/16/2023 Active Start: 09-19-2012 take 1 tablet by marcelina once daily levothyroxine (SYNTHROID) 150 mcg tablet Take 1 tablet by mouth once daily. 0 09/19/2012 Active take 1 tablet by marcelina once daily in the morning Levothyroxine Sodium 150 MCG 1 tablet in the morning on an empty stomach Orally Once a day Active Comment on above: Take 1 tablet by marcelina once daily. 24 hr metFORMIN hydrochloride 500 mg extended release oral tablet (20 sources) Biguanide Start: 09-03-2023 End: 08-21-2024 take 1 tablet by mouth once daily at dinner metFORMIN XR (GLUCOPHAGE XR) 500 mg 24 hr tablet Indications: Type 2 diabetes mellitus without complication, without long-term current use of insulin ([facility]) TAKE 1 TABLET(500 MG) BY MOUTH DAILY WITH DINNER 90 tablet 3 08/21/2024 Active Start: 10-21-2022 take 1 tablet by marcelina at mealtime metFORMIN (Glucophage) 500 MG tablet Take 500 mg by mouth in the evening. Take with meals. 10/21/2022 Active Start: 03-14-2017 take 2 tablets by mo [facility] twice daily at mealtime metFORMIN ER (GLUCOPHAGE XR) 500 mg 24 hr tablet TK 2 TS PO BID WITH A MEAL 1 03/14/2017 Active take 1 tablet by marcelina every twenty-four hours metFORMIN HCl ER 500 MG 1 tablet with evening meal Orally Once a day Active Comment on above: TK 2 TS PO BID WITH A MEAL 24 hr metoprolol succinate 50 mg extended release oral tablet (1 source) beta-Adrenergic Thalia Start: End: 6 take 1 tablet by mouth every twenty-four hours in the morning metoprolol succinate XL (TOPROL XL) 50 mg 24 hr tablet Take 1 tablet (50 mg total) by mouth in the morning. 12/15/2024 12/15/2025 Active multivitamin capsule (6 sources) take 1 capsule by mouth in [...] Active rimegepant 75 mg disintegrating oral tablet (20 sources) Start: 07-04-2024 rimegepant (NURTEC ODT) 75 mg tablet,disintegrating DISSOLVE 1 TABLET ON THE TONGUE DAILY EVERY OTHER DAY NEEDED FOR MIGRAINE 07/04/2024 Active Start: 03-24-2024 End: 10-02-2024 take 1 tablet by mouth once daily as needed, then take 1 tablet by mouth every other day as needed Rimegepant Sulfate (Nurtec) 75 MG tablet dispersible Indications: Insomnia, unspecified type Take 75 mg by mouth Daily as needed (migraine qod) 15 tablet 2 07/04/2024 10/02/2024 Active simvastatin 20 mg oral tablet (20 sources) HMG-CoA Reductase Inhibitor Start: 03-18-2023 take 1 tablet by mouth in the evening simvastatin (Zocor) 20 MG tablet Take 20 mg by mouth in the evening. 03/18/2023 Active 24 hr verapamil hydrochloride 200 mg extended release oral capsule (7 sources) Calcium Channel Thalia Start: 04-18-2019 take [...] every six hours for pain HYDROcodone-aceta minophen ([place]) 5-325 MG tablet Indications: Exostosis of left [...] Active amitriptyline hydrochloride 25 mg oral tablet (13 sources) Tricyclic Antidepressant Start: 09-19-2012 take 1 [...] at bedtime. lisinopril 5 mg oral tablet (7 sources) Angiotensin Converting Enzyme Inhibitor Start: 2016 take 1 tablet by mouth once daily lisinopril (ZESTRIL, PRINIVIL) 5 mg tablet TK 1 T PO QD 1 04/11/2017 Active Comment on above: TK 1 T PO QD methylPREDNISolone (15 sources) Corticosteroid Start: 2021 End: 2023 methylPREDNISolone (Medrol Dospak) 4 MG tablets FOLLOW PACKAGE DIRECTIONS 09/11/2022 08/16/2024 Discontinued (Therapy completed) Start: 09-11-2022 methylPREDNISo lone (Medrol Dospak) 4 MG tablets FOLLOW PACKAGE DIRECTIONS 09/11/2022 Active Start: 09-11-2022 methylPREDNISo lone (Medrol Dospak) 4 MG tablets FOLLOW PACKAGE DIRECTIONS 0 09/11/2022 Active MULTIVITAMIN TABLET (1 source) Start: 07-08-2004 MULTIVITAMIN T ABLET predniSONE 10 mg oral tablet (15 sources) Start: 08-02-2023 End: 08-16-2024 take 2 [...] Date Documented Date Episodic/Chronic Cancer of breast (13 sources) Intraductal carcinoma in situ of breast; Translations: [Intraductal carcinoma in situ of unspecified breast] Onset: 08-11-2013 08-11-2013 Chronic Complications of surgical procedures or medical care (8 sources) Postprocedural hypothyroidism; 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] Onset: 10-08-2018 09-19-2024 Chronic Diabetes mellitus without complication (20 sources) Type 2 diabetes mellitus without complications; Translations: [Diabetes mellitus] Onset: 05-21-2017 05-21-2017 Chronic Essential hypertension (8 sources) Hypertensive disorder; Translations: [Essential (primary) hypertension] Onset: 05-21-2017 05-21-2017 Chronic Headache; including migraine (4 sources) Migraine without aura, not refractory ; Translations: [Chronic migraine without aura, not intractable, without status migrainosus] 07-04-2024 Chronic Menstrual disorders (1 source) Irregular periods; Translations: [Irregular menstruation, unspecified] Onset: 04-20-2013 04-20-2013 Chronic Miscellaneous mental health disorders (2 sources) Primary insomnia; Translations: [Primary insomnia] 07-04-2024 Chronic Mycoses (20 sources) Onychomycosis; Translations: [Tinea unguium] Onset: 04-30-2023 04-30-2023 Episodic Osteoarthritis (20 sources) Osteoarthritis of left knee joint; Translations: [Unilateral primary osteoarthritis, left knee] Onset: 11-04-2021 Resolved: 02-03-2022 Chronic Other aftercare (10 sources) Surgical follow-up; Translations: [Encounter for follow-up examination after completed treatment for conditions other than malignant neoplasm] 08-17-2024 Episodic Other bone disease and musculoskeletal deformities (12 sources) Exostosis of left foot; Translations: [Other specified disorders of bone, ankle and foot] 08-10-2024 Episodic Other congenital anomalies (20 sources) Congenital deformity of toe; Translations: [Congenital deformity of feet, unspecified, unspecified foot] Onset: 04-30-2023 04-30-2023 Chronic Other connective tissue disease (20 sources) Pain in both feet; Translations: [Pain in right foot] Onset: 04-30-2023 04-30-2023 Episodic Other connective tissue disease (10 sources) Pain in left foot; Translations: [Pain in left foot] 08-10-2024 Episodic Other female genital disorders (6 sources) Complex atypical endometrial hyperplasia; 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]] Onset: 10-07-2018 10-07-2018 Chronic Other non-traumatic joint disorders (2 sources) Pain in left knee; Translations: [Pain in joint, lower leg] 08-15-2024 Episodic Other screening for suspected conditions (not mental disorders or infectious disease) (2 sources) Abnormal result of other cardiovascular function study; Translations: [Abnormal result of other cardiovascular function study] Onset: 12-17-2024 Episodic Other skin disorders (20 sources) Callosity; Translations: [Corns and callosities] Onset: 04-30-2023 04-30-2023 Episodic Other upper respiratory infections (1 source) Acute sinusitis, unspecified; Translations: [ACUTE SINUSITIS UNSPECIFIED] Onset: 09-30-2022 Episodic Residual codes; unclassified (1 source) Family history of malignant neoplasm of breast; Translations: [FAMILY HX MALIG NEOPLASM OF BREAST] Onset: 12-25-2022 Episodic Thyroid disorders (6 sources) Hypothyroidism; Translations: [Hypothyroidism, unspecified] Onset: 10-08-2018 10-08-2018 Chronic Unclassified (3 sources) CONTACT W/AND (SUSP) EXPOS COVID-19; Translations: [CONTACT W/AND (SUSP) EXPOS COVID-19] Onset: 09-30-2022 Past or Other Problems Problem Classification Problem Date Documented Date Episodic/Chronic Cancer of breast (11 sources) Personal history of malignant neoplasm of breast; Translations: [History of malignant neoplasm of breast] Onset: 06-27-2014 Episodic Complications of surgical procedures or medical care (6 sources) Non-healing surgical wound; Translations: [Other complications of procedures, not elsewhere classified, initial encounter] Onset: 11-16-2018 11-16-2018 Episodic Joint disorders and dislocations; trauma-related (4 sources) Other tear of medial meniscus, current injury, left knee, subsequent encounter Onset: 10-14-2021 Resolved: 01-12-2022 Episodic Mood disorders (6 sources) Mood disorders Onset: 12-17-2017 12-17-2017 Other connective tissue disease (20 sources) Tendinitis of right posterior tibial tendon; Translations: [Posterior tibial tendinitis, right leg] Onset: 04-30-2023 04-30-2023 Episodic Other diseases of veins and lymphatics (20 sources) Vascular insufficiency; Translations: [Venous insufficiency (chronic) (peripheral)] Onset: 04-30-2023 04-30-2023 Episodic Other ear and sense organ disorders (1 source) Subjective tinnitus; Translations: [Tinnitus, unspecified ear] Onset: 07-08-2004 07-08-2004 Episodic Residual codes; unclassified (4 sources) Other specified postprocedural states Onset: 10-14-2021 Resolved: 01-12-2022 Episodic Residual codes; unclassified (2 sources) Insomnia; Translations: [Insomnia, unspecified] 07-04-2024 Episodic Respiratory failure; insufficiency; arrest (adult) (6 sources) Hypoxemic respiratory failure; Translations: [Respiratory failure, unspecified with hypoxia] Onset: 10-21-2018 10-21-2018 Episodic Unclassified (1 source) CONTACT W/AND (SUSP) EXPOS COVID-19; Translations: [CONTACT W/AND (SUSP) EXPOS COVID-19] Onset: 09-28-2022 Unclassified (6 sources) Onset: 05-10-2018 05-10-2018 Results Test Name Value Interpretation Reference Range Facility CREATININE, SERUMon 01-26-20 25 Creatinine [Mass/Vol] 0.68 mg/dL Normal 0.60-1.20 [facility] Comment on above: Performed By: #### L [id number] #### [facility] (BEAKER) [address] [place] [address] GLOMERULAR FILTRATION RATE ML/MIN/1.73 SQ M.PREDICTED 101.5 mL/min/1.73m*2 Normal >60.0 [facility] Comment on above: Result Comment: The [facility]???s estimated glomerular filtration rate (eGFR) will no longer include consideration of race in its calculation. The National Kid[employer] Foundation???s eGFR Task Force developed new recommendations for the estimation of the glomerular filtration rate in the [place] They recommend immediate implementation of the new equation refit without the race variable in all laboratories because the calculation does not include race. In addition to not including race in the calculation and reporting, it included diversity in its development, and has acceptable performance characteristics and potential consequences that do not disproportionately affect any one group of individuals. Performed By: #### L [id number] #### [facility] ([facility]) [address] [place] [address] CTA HEART CORONARY W IV CONT RAST W OR WO FFRCTon 01-25-2025 CTA HEART CORONARY W IV CONTRAST W OR WO FFRCT CTA HEART CORONARY W IV CONTRAST W OR WO FFRCT 01/25/2025 8:15 AM CLINICAL INDICATIONS: Abnormal stress test. TECHNOLOGIST COMMENTS: Abnormal stress test. QUESTION FOR RADIOLOGIST: Evaluate possibility of coronary artery stenosis PROTOCOL: Gated pre and postcontrast CTA evaluation of the heart CONTRAST: 100 mL Omnipaque 350 TECHNIQUE: Multidetector CT angiogram was obtained using retrospective ECG gating. Imaging was performed from the level of the clavicles to the level of the hemidiaphragms. In order to provide better evaluation of the anatomy and disease process, advanced off-line 3-D post-processing techniques, including 3-D volume rendered images, currently analysis of the coronary arteries, stenosis calculation, ejection fraction evaluation and calcium scoring were performed. Medication administered in preparation for the examination is located in nursing documentation. All CT scans at this facility use dose modulation, iterative reconstruction, and/or weight based dosing when appropriate to reduce radiation dose to as low as reasonably achievable COMPARISON: None. CORONARY ARTERY ANGIOGRAM FINDINGS: Stenoses are reported as maximum percentage diameter stenosis. Stenosis grading is reported using the following scheme: Normal: no stenosis Mild: 1-49% stenosis Moderate: 50-70% stenosis Severe: >70% stenosis Occluded Dominance of the coronary artery system: right with normal origins and course. Left Main: The left main is a normal caliber vessel which gives rise to the LAD and circumflex arteries The left main with no significant plaque. No significant stenosis Left Anterior Descending Artery: The proximal left anterior descending artery and first diagonal branch with minimal plaque. The mid-distal LAD, D2 and D3 branches with minimal plaque. There is a no evidence of myocardial bridge in the LAD segment. There is mild stenosis in the mid LAD segment at the area of kinking in the course of the vessel of approximately 42%. Left Circumflex Artery: The left circumflex artery and its obtuse marginal branches with minimal plaque. There is mild stenosis in the left circumflex of approximately 30%. The vessel terminates as small obtuse marginal branch. Right Coronary Artery: The right coronary artery and acute marginal branches with mild plaque. There is mild stenosis in the proximal RCA of approximately 43%. Cardiac Morphology: The right atrium is normal. The right ventricle is normal. The left atrium is normal. The left ventricle is normal. The pericardium is normal and there is no pericardial effusion. Cardiac Function: {reported only if retrospective ECG gating has been used} The calculated left ventricular ejection fraction is 48%, the left ventricular end-diastolic volume is 167 mL, and the left ventricular end-systolic volume is 87 mL. Stroke volume is 80 mL. There is normal wall motion of the left ventricle. Cardiac Devices and Indwelling Central Venous Lines: No central lines or pacer devices. Noncontrast gated calcium scoring part of the study did not reveal any calcification in the coronary arteries. Therefore, total calcium scoring is 0 and likelihood of any significant coronary artery stenosis is unlikely. Heart no road map overview suggests mild stenosis in the distal RCA between 30 and 49%. LAD and left circumflex appeared grossly unremarkable without significant stenosis. Therefore, FFR was not performed. EXTRACARDIAC FINDINGS: Other lung findings: Visualized part of the lungs appear clear. Airway: Normal. Pleura: Visualized part of the pleura appear unremarkable. Thoracic aorta and great vessels: Normal in diameter. Pulmonary arteries: Normal. Heart and pericardium: Normal. Lymph nodes: No enlarged thoracic lymph nodes. Thoracic spine: Normal. Chest wall: Normal. Visualized upper abdomen: Normal. IMPRESSION: 1. Normal coronary CTA without evidence for coronary artery significant stenosis.. Minimal plaquing and mild stenosis in the coronary arteries as listed above. 2. Normal global and regional wall motion and function of the LV. Ejection fraction of 48% which is slightly reduced due to including part of the aortic root within the left ventricular ejection fraction calculation. 3. No other acute pathology in the visualized part of the chest and upper abdomen. 4. Total calcium scoring of 0. Electronically signed: Nidhi Aldridge MD. Not Vldtd Invalid Interpretation Code [facility] Labon 01-25-2025 Lab [id number] Richelle Pelaez ae 1965 F Date Provider Department [place] 01/25/20252244-[facility] LAB RESOURCE [facility] PR Medical C Family History Problem Relation Age of Onset Breast cancer Mother Family Status - Relation Status Age at Mother Normal [facility] POCT Glucose Fingerstickon 0 2-21-2025 Glucose [Mass/Vol] 114 mg/dL Abnormal 65 - 99 mg/dL [facility] System Interpretation and review of laboratory results Abnormal [facility] POCT Hemoglobin A1con 2024 HbA1c (Bld) [Mass fraction] 5.9 % 4 - 7 % [facility] Office Visiton 12-15-2024 Follow-up visit [id number] Richelle Pelaez Serge moss 1965 F Date Provider Department Center 12/15/2024 [id number] RASCON [facility] Family History Problem Relation Age of Onset Breast cancer Mother Family Status - Relation Status Age at Mother Level of Service:[id number] ID OFFICE/OUTPATIENT NEW MODERATE MDM 45 MINUTES Reason for Visit and Comments: Chest Pain [597325] - Denies chest pain and SOB. Had stress test last week. Hypertension [679468] Hyperlipidemia [182] - Had lipids in Sep 2024 Normal [facility] COMPREHENSIVE METABOLIC PANE Nehemiah 08-25-2024 Albumin [Mass/Vol] 4.1 g/dL Normal 3.2-5.3 [facility] Comment on above: Performed By: #### C ASHLEY STANLEY, 2132-07 #### [facility] ([id number]) [address], [address] [place] [address] ALP [Catalytic activity/Vol] 81 U/L Normal 39-130 [facility] Comment on above: Performed By: #### C ASHLEY STANLEY, 2132-07 #### [facility] ([id number]) [address], [address] [place] [address] ALT [Catalytic activity/Vol] 13 U/L Normal 0-31 [facility] Comment on above: Performed By: #### C ASHLEY STANLEY, 2132-07 #### [facility] ([id number]) [address], [address] [place] [address] Anion gap [Moles/Vol] 10 mmol/L Normal 5-15 [facility] Comment on above: Performed By: #### C ASHLEY STANLEY, 2132-07 #### [facility] ([id number]) [address], [address] [place] [address] AST [Catalytic activity/Vol] 22 U/L Normal 0-41 [facility] Comment on above: Performed By: #### C LIZETH THYR, 2132-07 #### [facility] ([id number]) [address], [address] [place] [address] Bilirubin [Mass/Vol] 0.8 mg/dL Normal 0.3-1.2 [facility] Comment on above: Performed By: #### C LIZETH THYR, 2132-07 #### [facility] ([id number]) [address], [address] [place] [address] Calcium [Mass/Vol] 9.0 mg/dL Normal 8.5-10.5 [facility] Comment on above: Performed By: #### C LIZETH THYR, 2132-07 #### [facility] ([id number]) [address], [address] [place] [address] Chloride [Moles/Vol] 104 mmol/L Normal 98-109 [facility] Comment on above: Performed By: #### C LIZETH THYR, 2132-07 #### [facility] ([id number]) [address], [address] [place] [address] CO2 [Moles/Vol] 27 mmol/L Normal 22-32 [facility] Comment on above: Performed By: #### C LIZETH THYR, 2132-07 #### [facility] ([id number]) [address], [address] [place] [address] Creatinine [Mass/Vol] 0.90 mg/dL Normal 0.40-1.00 [facility] Comment on above: Result Comment: METH OD TRACEABLE TO IDMS STANDARD Performed By: #### C LIZETH THYR, 2132-07 #### [facility] ([id number]) [address], [address] [place] [address] GFR/1.73 sq M.predicted among non-blacks MDRD (S/P/Bld) [Vol rate/Area] 75 mL/min/{1.73_m2} Normal >59 [facility] Comment on above: Result Comment: Reported eGFR is based on the CKD-EPI 2020 equation that does not use a race coefficient. Performed By: #### C ASHLEY STANLEY, 2132-07 #### [facility] ([id number]) [address], [address] [place] [address] Glucose [Mass/Vol] 101 mg/dL High 65-99 [facility] Comment on above: Performed By: #### C ASHLEY STANLEY, 2132-07 #### [facility] ([id number]) [address], [address] [place] [address] Potassium [Moles/Vol] 3.8 mmol/L Normal 3.5-5.0 [facility] Comment on above: Performed By: #### C ASHLEY STANLEY, 2132-07 #### [facility] ([id number]) [address], [address] [place] [address] Protein [Mass/Vol] 6.8 g/dL Normal 6.0-8.0 [facility] Comment on above: Performed By: #### C ASHLEY STANLEY, 2132-07 #### [facility] ([id number]) [address], [address] [place] [address] Sodium [Moles/Vol] 141 mmol/L Normal 134-146 [facility] Comment on above: Performed By: #### C ASHLEY STANLEY, 2132-07 #### [facility] ([id number]) [address], [address] [place] [address] Urea nitrogen [Mass/Vol] 22 mg/dL Normal 5-23 [facility] Comment on above: Performed By: #### C LIZETH, THYR, 2132-07 #### [facility] ([id number]) [address], [address] [place] [address] MICROALBUMIN - ALBUMIN:CREAT ININE URINE RATIOon 08-25-2024 ALB/CREAT RATIO 12.6 mg/g creat Normal 0.0-30.0 [facility] Comment on above: Performed By: #### M ALBU #### [facility] ([id number]) [address], [address] [place] [address] Albumin DL <= 20 mg/L (U) [Mass/Vol] 2.3 mg/dL High 0.0-1.9 [facility] Comment on above: Performed By: #### M ALBU #### [facility] ([id number]) [address] [place] [address] URINE CREAT 183.00 mg/dL Normal [facility] Comment on above: Performed By: #### M ALBU #### [facility] ([id number]) [address] [place] [address] POCT Glucose Fingerstickon 1 Glucose [Mass/Vol] 145 mg/dL Abnormal 65 - 99 mg/dL [facility] Interpretation and review of laboratory results Abnormal [facility] POCT Hemoglobin A1con 2023 HbA1c (Bld) [Mass fraction] 5.7 % 4 - 7 % [facility] Interpretation and review of laboratory results Abnormal [facility] THYROID PROFILEon 08-25-2024 Free T4 [Mass/Vol] 1.23 ng/dL Normal 0.61-1.60 [facility] Comment on above: Performed By: #### C LIZETH, THYR, 2132-07 #### [facility] ([id number]) [address], [address] [place] [address] TSH 2.05 uIU/mL Normal 0.49-4.67 [facility] Comment on above: Performed By: #### C MP, THYR, 2132-07 #### [facility] ([id number]) [address], [address] [place] [address] VITAMIN B12on 08-25-2024 Cobalamin (Vitamin B12) [Mass/Vol] 619 pg/mL Normal 180-914 [facility] Comment on above: Performed By: #### C MP, THYR, 2132-07 #### [facility] ([id number]) [address], [address] [place] [address] XR Foot - left 3 [facility] [...] of the ends of the toes 2,3,4 [facility] Radiology Study observation (narrative) [facility] XR Foot - left 3 [facility] Imaging Result: Three views of the left foot: AP, MO, LAT were performed today in the office. Radiographs were read by myself and demonstrate: No evidence of acute fracture or dislocation. Narrowing to the tarsometatarsal joint left. 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 There is enlargement and prominence to the distal left 3rd digit [facility] Radiology Study observation (narrative) [facility] POCT Glucose Fingerstickon 0 03-03-2024 Glucose [Mass/Vol] 94 mg/dL 65 - 99 mg/dL [facility] POCT Hemoglobin A1con 2023 HbA1c (Bld) [Mass fraction] 5.5 g/dL 4 - 7 g/dL [facility] THYROID PROFILEon 03-03-2024 Free T4 [Mass/Vol] 1.40 ng/dL Normal 0.61-1.60 [facility] Comment on above: Performed By: #### T HYR #### [facility] ([id number]) [address] [place] [address] [address] [place] [address] TSH 0.10 uIU/mL Low 0.49-4.67 [facility] Comment on above: Performed By: #### T HYR #### [facility] ([id number]) [address] [place] [address] [address] [place] [address] MICROALBUMIN - ALBUMIN:CREAT ININE URINE RATIOon 11-12-2023 ALB/CREAT RATIO 13.5 mg/g creat Normal 0.0-30.0 [facility] Comment on above: Performed By: #### M ALBU #### [facility] ([id number]) [address] [place] [address], [address] [place] [address] Albumin DL <= 20 mg/L (U) [Mass/Vol] 0.7 mg/dL Normal 0.0-1.9 [facility] Comment on above: Performed By: #### M ALBU #### [facility] ([id number]) [address] [place] [address] URINE CREAT 51.79 mg/dL Normal [facility] Comment on above: Performed By: #### M ALBU #### [facility] ([id number]) [address] [place] [address] [address] [place] [address] THYROID PROFILEon 11-12-2023 Free T4 [Mass/Vol] 1.37 ng/dL Normal 0.61-1.60 [facility] Comment on above: Performed By: #### T HYR #### [facility] ([id number]) [address] [place] [address] TSH 0.06 uIU/mL Low 0.49-4.67 [facility] Comment on above: Performed By: #### T HYR #### [facility] ([id number]) [address] [place] [address] Binta 04-06-2023 SHANNA Telephone (RADTSA) RICHELLE PELAEZ ([id number]) 1965 F Date Time Provider Department 04/06/23 [...] Date Reviewed: 01/15/2022 Reviewed by: Laurie Suresh, RN - Fully Assessed Reason for Visit: Patient Question [0718] Prescriptions as of 04/06/2023 - amLODIPine (NORVASC) [...] Status:Closed by COURTNEY GARCIA on 04/06/23 Normal [facility] MG MAMM DIAGNOSTIC 3D MARGARITA CA Don 12-21-2022 MG MAMM DIAGNOSTIC 3D MARGARITA CAD Patient: RICHELLE PELAEZ Exam Date: 12/21/2022 : 1965 Gender:F Ordering : DR NORA LINDO M.D. Admission #: [id number] Family : Order #: [id number] CLICK HERE TO VIEW EXAM RADIOLOGY REPORT [...] breast cancer at age 75. LOCATION: [facility] BREAST COMPOSITION: Almost entirely fatty. FINDINGS: [...] MD on 12/21/2022 at 13:48 Normal [facility] Covid-19 PCR (CVDTBH)on 09-09 SARS-CoV-2 (COVID-19) RNA ERIC+probe Ql (Unsp spec) Not detected Normal NOT DETECTED [facility] Comment on above: Result Comment: When [...] for this test is supported by the [place] of Health and Human Service's declaration that [...] used). Performed By: #### C VDTB #### [facility] [address] [place] [address] Dr. Lisbeth Ramirez INFLUENZA A AND B AGon 09-28 [facility] SEE BELOW Normal [facility] Comment on above: Result Comment: Nega tive for Flu A protein angiten. Infection due to Flu A cannot be ruled out. Flu A angiten in the sample may be below the detection limit of the test. Performed By: #### I NFLUAB #### [facility] [address] [place] [address] Dr. Lisbeth [facility] Normal [facility] Comment on above: Result Comment: Nega tive for Flu B protein antigen. Infection due to Flu B cannot be ruled out. Flu B antigen in the sample may be below the detection limit of the test. Performed By: #### I NFLUAB #### [facility] [address] [place] [address] Dr. Lisbeth Ramirez INFLUENZA A AG Negative Normal NEGATIVE SEE COMMENT [facility] Comment on above: Performed By: #### I NFLUAB #### [facility] [address] [place] [address] Dr. Lsibeth Ramirez INFLUENZA B AG Negative Normal NEGATIVE SEE COMMENT [facility] Comment on above: Performed By: #### I NFLUAB #### [facility] [address] [place] [address] Dr. Lisbeth Ramirez INTERNAL CONTROLS Within Normal Limits Normal Wi thin Normal Limits [facility] Comment on above: Performed By: #### I NFLUAB #### [facility] [address] [place] [address] Dr. Lisbeth Ramirez INSULINon 08-29-2022 Insulin 30.4 uIU/mL Critically high 2.6-24.9 [facility] Comment on above: Performed By: #### I NSULIN #### [facility] [address] [place] [address] Dr. Lisbeth Ramirez CBC AUTO DIFFon 08-28-2022 BASO # 0.1 103/ul Normal 0.0-0.1 [facility] Comment on above: Performed By: #### C BC #### [facility] [address] [place] [address] Dr. Lisbeth Ramirez Basophils/100 WBC (Bld) 0.8 % Normal 0.2-2.0 [facility] Comment on above: Performed By: #### C BC #### [facility] [address] [place] [address] Dr. Lisbeth Ramirez EO # 0.2 103/ul Normal 0.0-0.7 [facility] Comment on above: Performed By: #### C BC #### [facility] [address] [place] [address] Dr. Lisbeth Ramirez Eosinophils/100 WBC (Bld) 2.5 % Normal 0.9-7.0 [facility] Comment on above: Performed By: #### C BC #### [facility] [address] [place] [address] Dr. Lisbeth Ramirez Erythrocyte distribution width (RBC) [Ratio] 13.0 % Normal 11.0-15.0 [facility] Comment on above: Performed By: #### C BC #### [facility] [address] [place] [address] Dr. Lisbeth Ramirez Hematocrit (Bld) [Volume fraction] 42.1 % Normal 36.0-48.0 [facility] Comment on above: Performed By: #### C BC #### [facility] [address] [place] [address] Dr. Lisbeth Ramirez Hemoglobin (Bld) [Mass/Vol] 14.0 g/dL Normal 12.0-16.0 [facility] Comment on above: Performed By: #### C BC #### [facility] [address] [place] [address] Dr. Lisbeth Ramirez IG # 0.02 10e3/ul Normal 0.00-0.03 [facility] Comment on above: Performed By: #### C BC #### [facility] [address] [place] [address] Dr. Lisbeth Ramirez IG % 0.2 % Normal 0.0-0.5 [facility] Comment on above: Performed By: #### C BC #### [facility] [address] [place] [address] Dr. Lisbeth Ramirez LYMPH # 1.8 103/ul Normal 1.2-3.8 [facility] Comment on above: Performed By: #### C BC #### [facility] [address] [place] [address] Dr. Lisbeth Ramirez Lymphocytes/100 WBC (Bld) 20.9 % Normal 20.5-60.0 [facility] Comment on above: Performed By: #### C BC #### [facility] [address] [place] [address] Dr. Lisbeth Ramirez MANUAL DIFF REQ NO Normal [facility] Comment on above: Performed By: #### C BC #### [facility] [address] [place] [address] Dr. Lisbeth Ramirez MCH (RBC) [Entitic mass] 28.7 pg Normal 26.7-34.0 [facility] Comment on above: Performed By: #### C BC #### [facility] [address] [place] [address] Dr. Lisbeth Ramirez MCHC (RBC) [Mass/Vol] 33.3 g/dL Normal 29.9-35.2 [facility] Comment on above: Performed By: #### C BC #### [facility] [address] [place] [address] Dr. Lisbeth Ramirez MCV (RBC) [Entitic vol] 86.4 fL Normal 81.0-99.0 [facility] Comment on above: Performed By: #### C BC #### [facility] [address] [place] [address] Dr. Lisbeth Ramirez MONO # 0.8 103/ul Normal 0.3-0.8 [facility] Comment on above: Performed By: #### C BC #### [facility] [address] [place] [address] Dr. Lisbeth Ramirez Monocytes/100 WBC (Bld) 8.8 % Normal 1.7-12.0 [facility] Comment on above: Performed By: #### C BC #### [facility] [address] [place] [address] Dr. Lisbeth Ramirez NEUT # 5.8 103/ul Normal 1.4-6.5 [facility] Comment on above: Performed By: #### C BC #### [facility] [address] [place] [address] Dr. Lisbeth Ramirez Neutrophils/100 WBC (Bld) 66.8 % Normal 43.0-75.0 [facility] Comment on above: Performed By: #### C BC #### [facility] [address] [place] [address] Dr. Lisbeth Ramirez Platelet mean volume (Bld) [Entitic vol] 10.5 fL Normal 9.5-13.5 [facility] Comment on above: Performed By: #### C BC #### [facility] [address] [place] [address] Dr. Lisbeth Ramirez PLT 222 103/ul Normal 150-450 [facility] Comment on above: Performed By: #### C BC #### [facility] [address] [place] [address] Dr. Lisbeth Ramirez RBC 4.87 106/ul Normal 4.20-5.40 [facility] Comment on above: Performed By: #### C BC #### [facility] [address] [address] [address] Lisbeth Ramirez WBC 8.7 103/ul Normal 4.0-11.0 [facility] Comment on above: Performed By: #### C BC #### [facility] [address] [address] [address] Lisbeth Ramirez FREE THYROXINE INDEX T7on FTI 3.80 Normal 1.30-4.50 [facility] Comment on above: Performed By: #### T SH, CMP, LIPID, T7 ####[facility] [address] [place] [address] [address]Dr. Lisbeth Ramirez T3U 33.0 % Normal 30.0-39.0 [facility] Comment on above: Performed By: #### T SH, CMP, LIPID, T7 ####[facility] [address] [place] [address]Dr. Lisbeth Ramirez T4 [Mass/Vol] 11.50 ug/dL Normal 4.80-13.90 [facility] Comment on above: Performed By: #### T SH, CMP, LIPID, T7 ####[facility] [address] [address]Dr. Lisbeth Ramirez GLYCOHEMOGLOBIN A1Con 2021 ADA RECOMMENDATION SEE BELOW Normal [facility] Comment on above: Result Comment: ADA RECOMMENDED LIMIT 4.0 - 6.0 ADA THERAPEUTIC TARGET < 7.0 ACTION SUGGESTED > 7.0 Performed By: #### A 1C #### [facility] [address] [address] [address] Lisbeth Ramirez Glucose [Mass/Vol] 105 mg/dL Normal [facility] Comment on above: Performed By: #### A 1C #### [facility] [address] [address] [address] Lisbeth Ramirez HbA1c (Bld) [Mass fraction] 5.3 % Normal 4.5-6.2 [facility] Comment on above: Performed By: #### A 1C #### [facility] [address] [address] [address] Lisbeth Ramirez IRONon 08-28-2022 Iron [Mass/Vol] 54.0 ug/dL Normal 50.0-170.0 [facility] Comment on above: Performed By: #### I DAGO #### [facility] [address] [address] [address] Lisbeth Ramirez LIPID PROFILEon 08-28-2022 CHOL-HDL RATIO NORM SEE BELOW Normal [facility] Comment on above: Result Comment: 3.3 - 4.4 LOW RISK 4.4 - 7.1 AVERAGE RISK 7.1 - 11.0 MODERATE RISK >11.0 HIGH RISK Performed By: #### T SH, CMP, LIPID, T7 ####[facility] [address] [id number]. Lisbeth Ramirez Cholesterol [Mass/Vol] 187 mg/dL Normal <=200 [facility] Comment on above: Performed By: #### T SH, CMP, LIPID, T7 ####[facility] [address] [address]Dr. Lisbeth Ramirez Cholesterol in HDL [Mass/Vol] 67 mg/dL Critically high 40-60 [facility] Comment on above: Performed By: #### T SH, CMP, LIPID, T7 ####[facility] [address] [address]Dr. Davidajorge Ramirez Cholesterol in LDL [Mass/Vol] 95.8 mg/dL Normal [facility] Comment on above: Performed By: #### T SH, CMP, LIPID, T7 ####[facility] [address] [address]Dr. Davidajorge Ramirez Cholesterol.total/C holesterol in HDL [Mass ratio] 2.8 {ratio} Normal [facility] Comment on above: Performed By: #### T SH, CMP, LIPID, T7 ####[facility] [address] [address]Dr. Davidalan Ramirez HDL NORMAL > or = 60 mg/dl - LO W CARDIOVASCULAR RISK <40 mg/dl - HIGH CARDIOVASCULAR RISK Normal [facility] Comment on above: Performed By: #### T SH, CMP, LIPID, T7 ####[facility] [address] [place] [address]Dr. Lisbeth Ramirez LDL CALC NORMAL SEE BELOW Normal [facility] Comment on above: Result Comment: <100 mg/dl OPTIMAL 100 - 129 mg/dl NEAR OR ABOVE OPTIMAL 130 - 159 mg/dl BORDERLINE HIGH 160 - 189 mg/dl HIGH >190 mg/dl VERY HIGH Performed By: #### T SH, CMP, LIPID, T7 ####[facility] [address] [place] [address]Dr. Lisbeth Ramirez Triglyceride [Mass/Vol] 121 mg/dL Normal <=150 [facility] Comment on above: Performed By: #### T SH, CMP, LIPID, T7 ####[facility] [address] [place] [address] [address]Dr. Lisbeth Ramirez VLDL CALC 24.2 mg/dL Normal [facility] Comment on above: Performed By: #### T SH, CMP, LIPID, T7 ####[facility] [address] [address]Dr. Lisbeth Ramirez PROF 14(COMP METB)on 022 Albumin [Mass/Vol] 4.1 g/dL Normal 3.4-5.0 [facility] Comment on above: Performed By: #### T SH, CMP, LIPID, T7 ####[facility] [address] [address]Dr. Lisbeth Ramirez Albumin/Globulin [Mass ratio] 0.9 {ratio} Normal [facility] Comment on above: Performed By: #### T SH, CMP, LIPID, T7 ####[facility] [address] [place] [address]Dr. Lisbeth Ramirez ALP [Catalytic activity/Vol] 94 U/L Normal 46-116 [facility] Comment on above: Performed By: #### T SH, CMP, LIPID, T7 ####[facility] [address] [place] [address]Dr. Lisbeth Ramirez ALT [Catalytic activity/Vol] 13 U/L Critically low 14-59 [facility] Comment on above: Performed By: #### T SH, CMP, LIPID, T7 ####[facility] [address] [place] [address]Dr. Lisbeth Ramirez Anion gap [Moles/Vol] 11.4 mmol/L Normal [facility] Comment on above: Performed By: #### T SH, CMP, LIPID, T7 ####[facility] [address] [place] [address]Dr. Lisbeth Ramirez AST [Catalytic activity/Vol] 23 U/L Normal 15-37 [facility] Comment on above: Performed By: #### T SH, CMP, LIPID, T7 ####[facility] [address] [place] [address]Dr. Lisbeth Ramirez Bilirubin [Mass/Vol] 0.7 mg/dL Normal 0.2-1.0 [facility] Comment on above: Performed By: #### T SH, CMP, LIPID, T7 ####[facility] [address] [place], [place] [address]Dr. Lisbeth Ramirez Calcium [Mass/Vol] 9.5 mg/dL Normal 8.5-10.1 [facility] Comment on above: Performed By: #### T SH, CMP, LIPID, T7 ####[facility] [address] [place], [place] [address]Dr. Lisbeth Ramirez Chloride [Moles/Vol] 104 mmol/L Normal 98-107 [facility] Comment on above: Performed By: #### T SH, CMP, LIPID, T7 ####[facility] [address] [place], [place] [address]Dr. Lisbeth Ramirez CO2 [Moles/Vol] 25.9 mmol/L Normal 21.0-32.0 [facility] Comment on above: Performed By: #### T SH, CMP, LIPID, T7 ####[facility] [address] [place] [address]Dr. Lisbeth Ramirez Creatinine [Mass/Vol] 0.67 mg/dL Normal 0.55-1.02 [facility] Comment on above: Performed By: #### T SH, CMP, LIPID, T7 ####[facility] [address] [place] [id number]. Lisbeth Ramirez EGFR-AF MOZAMBICAN >60 Normal >=60 [facility] Comment on above: Performed By: #### T SH, CMP, LIPID, T7 ####[facility] [address] [place] [address]Dr. Lisbeth Ramirez EGFR-NON AF MOZAMBICAN >60 Normal >=60 [facility] Comment on above: Performed By: #### T SH, CMP, LIPID, T7 ####[facility] [address] [place] [address]Dr. Lisbeth Ramirez Globulin (S) [Mass/Vol] 4.2 g/dL Normal [facility] Comment on above: Performed By: #### T SH, CMP, LIPID, T7 ####[facility] [address] [place] [address]Dr. Lisbeth Ramirez Glucose [Mass/Vol] 103 mg/dL Normal 74-106 [facility] Comment on above: Performed By: #### T SH, CMP, LIPID, T7 ####[facility] [address] [place], [place] [address]Dr. Lisbeth Ramirze Potassium [Moles/Vol] 3.6 mmol/L Normal 3.5-5.1 [facility] Comment on above: Performed By: #### T SH, CMP, LIPID, T7 ####[facility] [address] [place] [address]Dr. Lisbeth Ramirez Protein [Mass/Vol] 8.3 g/dL Critically high 6.4-8.2 [facility] Comment on above: Performed By: #### T SH, CMP, LIPID, T7 ####[facility] [address] [place] [address]Dr. Lisbeth Ramirez Sodium [Moles/Vol] 138 mmol/L Normal 136-145 [facility] Comment on above: Performed By: #### T SH, CMP, LIPID, T7 ####[facility] [address] [place] [address]Dr. Lisbeth Ramirez Urea nitrogen [Mass/Vol] 12.0 mg/dL Normal 7.0-18.0 [facility] Comment on above: Performed By: #### T SH, CMP, LIPID, T7 ####[facility] [address] [place] [address]Dr. Lisbeth Ramirez Urea nitrogen/Creatinine [Mass ratio] 17.9 mg/mg Normal [facility] Comment on above: Performed By: #### T SH, CMP, LIPID, T7 ####[facility] [address] [place] [address]Dr. Lisbeth Ramirez TSHon 08-28-2022 TSH 0.572 uIU/mL Normal 0.358-3.740 [facility] Comment on above: Performed By: #### T SH, CMP, LIPID, T7 ####[facility] [address] [place] [address]Dr. Lsibeth Ramirez UA (CLEAN/CATCH) VISITOR SERVICES COORDINATOR/MICRO I F IND.on 06-10-2022 Bilirubin Ql (U) Negative Normal NEGATIVE [facility] Comment on above: Performed By: #### U ACSIND UMICRO #### [facility] [address] [address] [address] Lisbeth Ramirez Clarity (U) CLEAR Normal CLEAR [facility] Comment on above: Performed By: #### U ACSBLAISE, UMICRO #### [facility] [address] [address] [address] Lisbeth Ramirez Color (U) YELLOW Normal YELLOW [facility] Comment on above: Performed By: #### U ACSBLAISE UMICRO #### [facility] [address] [address] [address] Lisbeth Ramirez Glucose Ql (U) Negative Normal NEGATIVE [facility] Comment on above: Performed By: #### U ACSBLAISE, UMICRO #### [facility] [address] [address] [address] Lisbeth Ramirez Hemoglobin Ql (U) MODERATE Abnormal NEGATIVE [facility] Comment on above: Performed By: #### U ACSIND, UMICRO #### [facility] [address] [address] [address] Lisbeth Ramirez Ketones Ql (U) Negative Normal NEGATIVE [facility] Comment on above: Performed By: #### U ACSIND, UMICRO #### [facility] [address] [place] [address] Dr. Lisbeth Ramirez LEUKOCYTES TRACE Abnormal NEGATIVE [facility] Comment on above: Performed By: #### U ACSIND, UMICRO #### [facility] [address] [place] [address] Dr. Lisbeth Ramirez Nitrite Ql (U) Negative Normal NEGATIVE [facility] Comment on above: Performed By: #### U ACSBLAISE, UMICRO #### [facility] [address] [place] [address] Dr. Lisbeth Ramirez pH (U) 6.0 [pH] Normal 5-9 [facility] Comment on above: Performed By: #### U ACSBLAISE, UMICRO #### [facility] [address] [place] [address] Dr. Lisbeth Ramirez SPEC GRAVITY 1.025 Normal 1.005-<=1.025 [facility] Comment on above: Performed By: #### U ACSBLAISE, UMICRO #### [facility] [address] [place] [address] Dr. Lisbeth Ramirez UA PROTEIN Negative Normal NEGATIVE/ TRACE [facility] Comment on above: Performed By: #### U ACSBLAISE, UMICRO #### [facility] [address] [place] [address] Dr. Lisbeth Ramirez UR MICRO IND INDICATED Normal [facility] Comment on above: Performed By: #### U ACSBLAISE, UMICRO #### [facility] [address] [place] [address] Dr. Lisbeth Ramirez Urobilinogen Qn (U) 0.2 {Ricci'U}/dL Normal 0.2 - 1. 0 [facility] Comment on above: Performed By: #### U ACSBLAISE, UMICRO #### [facility] [address] [place] [address] Dr. Lisbeth Ramirez URINE MICROSCOPIC ONLYon BACTERIA NONE SEEN Normal NONE SEEN [facility] Comment on above: Performed By: #### U ACSBLAISE, UMICRO #### [facility] [address] [address] [address] Lisbeth Ramirez Bacteria identified Cx Nom (U) NOT INDICATED Normal [facility] Comment on above: Performed By: #### U ACSIND, UMICRO #### [facility] [address] [address] [address] Lisbeth Ramirez CAST NONE SEEN Normal NONE SEEN [facility] Comment on above: Performed By: #### U ACSIND, UMICRO #### [facility] [address] [address] [address] Lisbeth Ramirez Crystals LM Nom (Urine sed) NONE SEEN Normal NONE SEEN [facility] Comment on above: Performed By: #### U ACSIND, UMICRO #### [facility] [address] [place] [address] Dr. Lisbeth Ramirez Epithelial cells LM Ql (Urine sed) FEW Abnormal NONE SEEN /RARE [facility] Comment on above: Performed By: #### U ACSBLAISE, UMICRO #### [facility] [address] [address] [address] Lisbeth Ramirez MUCOUS NONE SEEN Normal NONE SEEN [facility] Comment on above: Performed By: #### U ACSBLAISE, UMICRO #### [facility] [address] [address] [address] Lisbeth Ramirez RBC 2-5 Abnormal 0-2 [facility] Comment on above: Performed By: #### U ACSBLAISE UMICRO #### [facility] [address] [address] [address] Lisbeth Ramirez WBC 0-2 Abnormal NONE SEEN [facility] Comment on above: Performed By: #### U ACSIND, UMICRO #### [facility] [address] [address] [address] Lisbeth Ramirez XR knee LT 2Von 01-12-2022 XR knee LT 2V [facility] [place] [address] XRay Report Signed Patient: Richelle Pelaez MR#: [id number] : 1965 Acct:[id number] Age/Sex: 56 / F ADM Date: 01/12/22 Loc: SOXD Room: Type: [facility] Attending Dr: Heath Silva MD Ordering Provider: Heath Silva MD Date of Service: 01/12/22 XR/XR knee LT 2V: Other tear of medial meniscus, current injury, left knee, loyns Copies to: Heath Silva MD Left knee [...] Carney Jr., M.D.01/12/2022 4:14 PM Dictation Location: [place] [address] Transcribed By: [facility] 01/12/22 1614 Dictated By: Andrea Carney Jr, MD 01/12/22 1608 Signed By: 01/12/22 1614 [facility] MG MAMM DIAGNOSTIC 3D MARGARITA CA Don 01-01-2022 MG MAMM DIAGNOSTIC 3D MARGARITA CAD Patient: RICHELLE PELAEZ Exam Date: 01/01/2022 : 1965 Gender:F Ordering : DR NORA LINDO M.D. Admission #: [id number] Family : Order #: [id number] CLICK HERE TO VIEW EXAM RADIOLOGY REPORT [...] breast cancer at age 75. LOCATION: [facility] BREAST COMPOSITION: Almost entirely fatty. FINDINGS: [...] PALPABLE LUMP SHOULD BE BIOPSIED. Dictated by: Moshe Castillo M.D. on 01/01/2022 at 15:32 Approved by: Moshe Castillo M.D. on 01/01/2022 at 15:42 Normal [facility] TSHon 05-22-2019 TSH Qn 2.23 uIU/ml Normal 0.47-4.68 [facility] Comment on above: Performed By: #### 7 50, 800, 1000, 1005, 4500, 4520, 4578 #### [facility] Unless Otherwise Noted [address] [address] / COLA #4724/CLIA # [id number] VITAMIN B12on 05-22-2019 Cobalamin (Vitamin B12) [Mass/Vol] 713.0 pg/mL Normal 239.0-931.0 [facility] Comment on above: Performed By: #### 7 50, 800, 1000, 1005, 4500, 4596, 4573 #### [facility] Unless Otherwise Noted [address] [address] / COLA #4724/CLIA # [id number] AFINION A1Con 05-19-2019 HbA1c (Bld) [Mass fraction] 5.6 G/DL Normal 4.5-6.0 [facility] Comment on above: Performed By: #### 7 50, 800, 1000, 1005, 4500, 4520, 4575 #### [facility] Unless Otherwise Noted [address] [place] [address] / COLA #4724/CLIA # [id number] [facility] 05-19-2019 Albumin [Mass/Vol] 4.4 g/dL Normal 3.5-5.0 [facility] Comment on above: Performed By: #### 7 50, 800, 1000, 1005, 4500, 4520, 4575 #### [facility] Unless Otherwise Noted [address] [place], [place] [address] / COLA #4724/CLIA # [id number] ALP [Catalytic activity/Vol] 98.0 U/L Normal 38.0-126.0 [facility] Comment on above: Performed By: #### 7 50, 800, 1000, 1005, 4500, 4573, 4575 #### [facility] Unless Otherwise Noted [address] [place] [address] / COLA #4724/CLIA # [id number] ALT [Catalytic activity/Vol] 16.0 U/L Normal 13.0-69.0 [facility] Diabetes [facility] Comment on above: Performed By: #### 7 50, 800, 1000, 1005, 4500, 4520, 4575 #### [facility] Unless Otherwise Noted [address] [place] [address] / COLA #4724/CLIA # [id number] Anion gap [Moles/Vol] 7.0 mmol/L Low 10.0-15.0 [facility] Comment on above: Performed By: #### 7 50, 800, 1000, 1005, 4500, 4520, 4575 #### [facility] Unless Otherwise Noted [address] [address] / COLA #4724/CLIA # [id number] AST [Catalytic activity/Vol] 39.0 U/L Normal 15.0-46.0 [facility] Diabetes [facility] Comment on above: Performed By: #### 7 50, 800, 1000, 1005, 4500, 4520, 4575 #### [facility] Unless Otherwise Noted [address] [address] / COLA #4724/CLIA # [id number] Bilirubin Ql (U) 0.40 mg/dL Normal 0.20-1.30 [facility] Comment on above: Performed By: #### 7 50, 800, 1000, 1005, 4500, 4520, 4575 #### [facility] Unless Otherwise Noted [address] [address] / COLA #4724/CLIA # [id number] BUN/Cre Ratio 18.8 Ratio Normal 7.0-27.0 [facility] Diabetes [facility] Comment on above: Performed By: #### 7 50, 800, 1000, 1005, 4500, 4520, 4575 #### [facility] Unless Otherwise Noted [address] [address] / COLA #4724/CLIA # [id number] Calcium [Mass/Vol] 9.6 mg/dL Normal 8.4-10.2 [facility] Comment on above: Performed By: #### 7 50, 800, 1000, 1005, 4500, 4520, 4575 #### [facility] Unless Otherwise Noted [address] [address] / COLA #4724/CLIA # [id number] Chloride [Moles/Vol] 107.0 mmol/L Normal 98.0-107.0 [facility] and Diabetes [facility] Comment on above: Performed By: #### 7 50, 800, 1000, 1005, 4500, 4520, 4575 #### [facility] [place] [place] Unless Otherwise Noted [address] [place] [address] / COLA #4724/CLIA # [id number] CO2 [Moles/Vol] 28.0 mmol/L Normal 22.0-30.0 [facility] Comment on above: Performed By: #### 7 50, 800, 1000, 1005, 4500, 4520, 4575 #### [facility] Unless Otherwise Noted [address] [place] [address] / COLA #4724/CLIA # [id number] Creatinine [Mass/Vol] 0.8 mg/dL Normal 0.5-1.0 [facility] Diabetes [facility] Comment on above: Performed By: #### 7 50, 800, 1000, 1005, 4500, 4520, 4575 #### [facility]ocrine [facility] Diabetes [facility] Unless Otherwise Noted [address] [address] / COLA #4724/CLIA # [id number] GFR/1.73 sq M predicted among blacks MDRD (S/P/Bld) [Vol rate/Area] 96.9 ml/m1.73 Normal [facility] and Diabetes [facility] Comment on above: Performed By: #### 7 50, 800, 1000, 1005, 4500, 4520, 4575 #### [facility] Unless Otherwise Noted [address] [address] / COLA #4724/CLIA # [id number] GFR/1.73 sq M predicted among non-blacks MDRD (S/P/Bld) [Vol rate/Area] 80.1 ml/m1.73 Normal [facility] Diabetes [facility] Comment on above: Performed By: #### 7 50, 800, 1000, 1005, 4500, 4520, 4575 #### [facility] Diabetes [facility] Unless Otherwise Noted [address] [place] [address] / COLA #4724/CLIA # [id number] GFR/1.73 sq M predicted among non-blacks MDRD (S/P/Bld) [Vol rate/Area] 139.1 ml/m1.73 Normal [facility] and Diabetes [facility] Comment on above: Performed By: #### 7 50, 800, 1000, 1005, 4500, 4520, 4575 #### [facility] Unless Otherwise Noted [address] [place] [address] / COLA #4724/CLIA # [id number] Glucose [Mass/Vol] 91.0 mg/dL Normal 74.0-106.0 [facility] Comment on above: Performed By: #### 7 50, 800, 1000, 1005, 4500, 4520, 4575 #### [facility] Unless Otherwise Noted [address] [place] [address] / COLA #4724/CLIA # [id number] Potassium [Moles/Vol] 3.9 mmol/L Normal 3.5-5.1 [facility] Comment on above: Performed By: #### 7 50, 800, 1000, 1005, 4500, 4520, 4575 #### [facility] Unless Otherwise Noted [address] [place] [address] / COLA #4724/CLIA # [id number] Protein [Mass/Vol] 7.6 g/dL Normal 6.3-8.2 [facility] Comment on above: Performed By: #### 7 50, 800, 1000, 1005, 4500, 4520, 4575 #### [facility] [place] Unless Otherwise Noted [address] [address] / COLA #4724/CLIA # [id number] Sodium [Moles/Vol] 142.0 mmol/L Normal 137.0-145.0 [facility] Comment on above: Performed By: #### 7 50, 800, 1000, 1005, 4500, 4520, 4571 #### [facility] Diabetes [facility] Unless Otherwise Noted [address] [address] / COLA #4724/CLIA # [id number] Urea nitrogen [Mass/Vol] 15.0 mg/dL Normal 7.0-17.0 [facility] Comment on above: Performed By: #### 7 50, 800, 1000, 1005, 4500, 4520, 4575 #### [facility] [place] Unless Otherwise Noted [address] [address] / COLA #4724/CLIA # [id number] [facility] 05-19-2019 Free T4 [Mass/Vol] 1.10 ng/dL Normal 0.64-1.79 [facility] Comment on above: Performed By: #### 7 50, 800, 1000, 1005, 4500, 4520, 4575 #### [facility] [place] Unless Otherwise Noted [address] [address] / COLA #4724/CLIA # [id number] [facility] 05-19-2019 Cholesterol [Mass/Vol] 209.0 mg/dL High 0.0-199.0 [facility] Comment on above: Performed By: #### 7 50, 800, 1000, 1005, 4500, 4520, 4575 #### [facility] Unless Otherwise Noted [address] [address] / COLA #4724/CLIA # [id number] Cholesterol in HDL [Mass/Vol] 66.0 mg/dL High 40.0-60.0 [facility] Comment on above: Performed By: #### 7 50, 800, 1000, 1005, 4500, 4520, 4575 #### [facility] Unless Otherwise Noted [address] [address] / COLA #4724/CLIA # [id number] Cholesterol in LDL [Mass/Vol] 118.4 mg/dL High 0.0-100.0 [facility] Comment on above: Performed By: #### 7 50, 800, 1000, 1005, 4500, 4520, 4575 #### [facility] Unless Otherwise Noted [address] [address] / COLA #4724/CLIA # [id number] Cholesterol in VLDL [Mass/Vol] 24.6 mg/dL Normal [facility] and Diabetes [facility] Comment on above: Performed By: #### 7 50, 800, 1000, 1005, 4500, 4520, 4575 #### [facility] Unless Otherwise Noted [address] [address] / COLA #4724/CLIA # [id number] Cholesterol.total/C holesterol in HDL [Mass ratio] 3.2 {ratio} Normal [facility] Comment on above: Performed By: #### 7 50, 800, 1000, 1005, 4500, 4520, 4575 #### [facility] Unless Otherwise Noted [address] [place] [address] / COLA #4724/CLIA # [id number] Triglyceride [Mass/Vol] 123.0 mg/dL Normal 0.0-150.0 [facility] Comment on above: Performed By: #### 7 50, 800, 1000, 1005, 4500, 4520, 4575 #### [facility] Unless Otherwise Noted [address] [place] [address] / COLA #4724/CLIA # [id number] NEW MICROALBUMINon 9 Creatinine (U) [Mass/Vol] 128.3 mg/dL Normal [facility] Comment on above: Performed By: #### 7 50, 800, 1000, 1005, 4500, 4520, 4575 #### [facility] Unless Otherwise Noted [address] [place] [address] / COLA #4724/CLIA # [id number] Microalbumin 37.0 mg/L High 0.0-30.0 [facility] Comment on above: Performed By: #### 7 50, 800, 1000, 1005, 4500, 4520, 4575 #### [facility] Unless Otherwise Noted [address] [address] / COLA #4724/CLIA # [id number] Urine A/C Ratio 28.8 mg/g Normal 0.0-30.0 [facility] Comment on above: Performed By: #### 7 50, 800, 1000, 1005, 4500, 4520, 4575 #### [facility] [place], [facility]. Unless Otherwise Noted [address] [place] [address] / WILLIE #4724/ANTONY # [id number] Vital Signs Date Time Vital Sign Value Performing Clinician Facility 12-29-2024 13:47-0500 Body mass index (BMI) [Ratio] 44.07 kg/m2 Faheem Rock DIE DRAWING CHECKER-SITE ACQUISITION SPECIALIST Work Phone: [facility] 12-29-2024 13:47-0500 Body weight 109.32 kg Faheem Rock DIE DRAWING CHECKER-SITE ACQUISITION SPECIALIST Work Phone: [facility] [employer] [facility] 12-29-2024 13:47-0500 Diastolic blood pressure 83 mm[Hg] Faheem Rock DIE DRAWING CHECKER-SITE ACQUISITION SPECIALIST Work Phone: [facility] [employer] [facility] 12-29-2024 13:47-0500 Heart rate 91 /min Faheem Rock DIE DRAWING CHECKER-SITE ACQUISITION SPECIALIST Work Phone: [facility] 12-29-2024 13:47-0500 Systolic blood pressure 132 mm[Hg] Faheem Rock DIE DRAWING CHECKER-SITE ACQUISITION SPECIALIST Work Phone: [facility] 08-25-2024 12:39-0400 Body mass index (BMI) [Ratio] 43.48 kg/m2 Faheem Rock DIE DRAWING CHECKER-SITE ACQUISITION SPECIALIST Work Phone: [facility] [employer] [facility] 08-25-2024 12:39-0400 Body weight 107.86 kg Faheem Rock DIE DRAWING CHECKER-SITE ACQUISITION SPECIALIST Work Phone: [facility] [employer] [facility] 08-25-2024 12:39-0400 Diastolic blood pressure 85 mm[Hg] Faheem Rock DIE DRAWING CHECKER-SITE ACQUISITION SPECIALIST [facility] 08-25-2024 12:39-0400 Heart rate 88 /min Faheem Rock DIE DRAWING CHECKER-SITE ACQUISITION SPECIALIST Work Phone: [facility] 08-25-2024 12:39-0400 Systolic blood pressure 128 mm[Hg] Faheem Rock DIE DRAWING CHECKER-SITE ACQUISITION SPECIALIST Work Phone: [facility] 07-04-2024 16:34-0400 Diastolic blood pressure 98 mm[Hg] Diego Yenifer DO Work Phone: [facility] 07-04-2024 16:34-0400 Heart rate 88 /min Diego Yenifer DO Work Phone: [facility] 07-04-2024 16:34-0400 SaO2% (BldA) [Mass fraction] 98 % Diego Yenifer DO Work Phone: [facility] 07-04-2024 16:34-0400 Systolic blood pressure 146 mm[Hg] Diego Yenifer DO Work Phone: [facility] 03-03-2024 12:05-0400 Body mass index (BMI) [Ratio] 42.53 kg/m2 Nadia Sotomayor MD Work Phone: [facility] [employer] [facility] 03-03-2024 12:05-0400 Body weight 105.51 kg Nadia Sotomayor MD Work Phone: [facility] 03-03-2024 12:05-0400 Diastolic blood pressure 85 mm[Hg] Nadia Sotomayor MD Work Phone: [facility] 03-03-2024 12:05-0400 Heart rate 73 /min Nadia Sotomayor MD Work Phone: [facility] [employer] [facility] 03-03-2024 12:05-0400 Systolic blood pressure 123 mm[Hg] Nadia Sotomayor MD Work Phone: [facility] [employer] 01-12-2022 16:00-0500 Body height 157.48 cm Heath Silva Other [employer] Other 01-12-2022 16:00-0500 Body mass index (BMI) [Ratio] 45.17 kg/m2 Heath Silva Other [employer] Other 01-12-2022 16:00-0500 Body weight 112.04 kg Heath Olexa Other [employer] Other 11-04-2021 10:00-0500 Body height 157.48 cm Heath Olexa Other [employer] Other 11-04-2021 10:00-0500 Body mass index (BMI) [Ratio] 46.82 kg/m2 Heath Olexa Other [employer] Other 11-04-2021 10:00-0500 Body weight 116.12 kg Heath Olexa Other [employer] Other 10-14-2021 14:30-0500 Body height 157.48 cm Heath Olexa Other [employer] Other 10-14-2021 14:30-0500 Body mass index (BMI) [Ratio] 46.16 kg/m2 Heath Olexa Other [employer] Other 10-14-2021 14:30-0500 Body weight 114.49 kg Heath Olexa Other [employer] Other 05-19-2019 18:58-0400 Body weight 107.1 Kg [facility] Comment on above: Performed By: #### 750, 800, 1000, 1005, 4500, 4520, 4575 #### [facility] Unless Otherwise Noted [address] [place] [address] / WILLIE #4724/ANTNOY # [id number] Encounters Encounter Date Encounter Type Care Provider Facility Start: 01-25-2025 End: 01-25-2025 ambulatory [facility] Start: 01-10-2025 End: 01-10-2025 ambulatory JOSUE HINOJOSA Not Available Start: 01-10-2025 End: 01-10-2025 Patient encounter procedure Josue Hinojosa DPM Work Phone: [facility] Comment on above: Onychomycosis (Prima ry Dx); Corns and callosities; Pain in both feet; Type 2 diabetes mellitus without complication, without long-term current use of insulin ([facility]) Start: 01-10-2025 End: 01-10-2025 Bamboo flowsheet Josue Hinojosa DPM Work Phone: [facility] Start: 01-10-2025 End: 01-10-2025 Bamboo flowsheet Josue Hinojosa DPM Work Phone: [facility] Start: 12-29-2024 End: 12-29-2024 Office outpatient visit 25 minutes Faheem Rock DIE DRAWING CHECKER-SITE ACQUISITION SPECIALIST Work Phone: [facility] Adult [facility]ocrinology, A Department of [facility] Comment on above: Type 2 diabetes lisa itus without complication, without long- term current use of insulin ([facility]) (Primary Dx); Postablative hypothyroidism Start: 12-29-2024 End: 12-29-2024 ambulatory FAHEEM ROCK [facility] Start: 12-15-2024 End: 12-15-2024 ambulatory [facility] Start: 11-20-2024 End: 11-21-2024 Telephone encounter Peri VALDEZ Work Phone: [facility] Comment on above: dentist Start: 11-02-2024 End: 11-02-2024 Bamboo flowsheet Josue Hinojosa DPM Work Phone: [facility] Start: 11-02-2024 End: 11-02-2024 Bamboo flowsmanuel Hinojosa DPM Work Phone: [facility] Start: 11-02-2024 End: 11-02-2024 Postop follow up visit related to original px Josue Hinojosa DPM Work Phone: [facility] Comment on above: Surgery follow-up ex amination (Primary Dx); Exostosis of left foot; Osteoarthritis of midtarsal joint of left foot; Osteoarthritis of right ankle and foot; Onychomycosis; Corns and callosities; Pain in both feet; Type 2 diabetes mellitus without complication, without long-term current use of insulin ([facility]) Start: 11-02-2024 End: 11-02-2024 ambulatory JOSUE HINOJOSA Not Available Start: 10-09-2024 End: 10-09-2024 ambulatory JOSUE HINOJOSA Not Available Start: 10-09-2024 End: 10-09-2024 Postop follow up visit related to original px Josue Hinojosa DPM Work Phone: [facility] Comment on above: Surgery follow-up ex amination (Primary Dx); Exostosis of left foot; Left foot pain Start: 10-09-2024 End: 10-09-2024 Bamboo flowsheet Josue Hinojosa DPM Work Phone: [facility] Start: 10-09-2024 End: 10-09-2024 Bamboo flowsheet Josue Hinojosa DPM Work Phone: [facility] Start: 09-19-2024 End: 09-19-2024 Miguel Rock DIE DRAWING CHECKER-SITE ACQUISITION SPECIALIST Work Phone: [facility] Comment on above: Postablative hypothy roidism Start: 09-04-2024 End: 09-04-2024 ambulatory JOSUE HINOJOSA Not Available Start: 09-04-2024 End: 09-04-2024 Postop follow up visit related to original px Josue Hinojosa DPM Work Phone: [facility] Comment on above: Surgery follow-up ex amination (Primary Dx); Exostosis of left foot; Left foot pain Start: 09-04-2024 End: 09-04-2024 Bamboo flowsheet Josue Hinojosa DPM Work Phone: [facility] Start: 09-04-2024 End: 09-04-2024 Bamboo flowsheet Josue Hinojosa DPM Work Phone: [facility] Start: 08-25-2024 End: 08-25-2024 ambulatory CHACHA Valentine Michelle [facility] Start: 08-25-2024 End: 08-25-2024 Office outpatient visit 25 minutes Faheem Rock DIE DRAWING CHECKER-SITE ACQUISITION SPECIALIST Work Phone: [facility] Comment on above: Type 2 diabetes lisa itus without complication, without long- term current use of insulin ([facility]) (Primary Dx); Postablative hypothyroidism Start: 08-25-2024 End: 08-25-2024 ambulatory [facility] Start: 08-21-2024 End: 08-21-2024 Postop follow up visit related to original px Josue Hinojosa DPM Work Phone: [facility] Comment on above: Surgery follow-up ex amination (Primary Dx); Exostosis of left foot; Left foot pain Start: 08-21-2024 End: 08-21-2024 ambulatory JOSUE HINOJOSA Not Available Start: 08-21-2024 End: 08-21-2024 Bamboo flowsheet Josue Hinojosa DPM Work Phone: [facility] Start: 08-21-2024 End: 08-21-2024 Bamboo flowsheet Josue Hinojosa DPM Work Phone: [facility] Start: 08-20-2024 End: 08-21-2024 Refill Faheem Rock DIE DRAWING CHECKER-SITE ACQUISITION SPECIALIST Work Phone: [facility] Comment on above: Type 2 diabetes lisa itus without complication, without long- term current use of insulin ([facility]) Start: 08-16-2024 End: 08-16-2024 Office outpatient visit 15 minutes Peri VALDEZ Work Phone: [facility] Comment on above: Acute pain of left k nee (Primary Dx); History of left knee replacement Start: 08-16-2024 End: 08-16-2024 ambulatory PERI NIELSEN Not Available Start: 08-16-2024 End: 08-16-2024 Bamboo flowsheet Peri Nielsen PA Work Phone: [facility] Start: 08-16-2024 End: 08-16-2024 Bamboo flowsheet Peri Nielsen PA Work Phone: [facility] Start: 08-14-2024 End: 08-14-2024 Postop follow up visit related to original px Josue Hinojosa DPM Work Phone: [facility] Comment on above: Surgery follow-up ex amination (Primary Dx); Exostosis of left foot; Left foot pain Start: 08-14-2024 End: 08-14-2024 ambulatory JOSUE HINOJOSA Not Available Start: 08-14-2024 End: 08-14-2024 Bamboo flowsheet Josue Hinojosa DPM Work Phone: [facility] Start: 08-14-2024 End: 08-14-2024 Bamboo flowsheet Josue Hinojosa DPM Work Phone: [facility] Start: 08-10-2024 End: 08-10-2024 Bamboo flowsheet Josue Hinojosa DPM Work Phone: [facility] Start: 08-10-2024 End: 08-10-2024 Bamboo flowsheet Josue Hinojosa DPM Work Phone: [facility] Start: 08-10-2024 End: 08-10-2024 ambulatory JOSUE HINOJOSA Not Available Start: 08-10-2024 End: 08-10-2024 Office outpatient visit 15 minutes Josue Hinojosa DPM Work Phone: [facility] Comment on above: Exostosis of left fo ot (Primary Dx); Left foot pain; Osteoarthritis of midtarsal joint of left foot; Osteoarthritis of right ankle and foot Start: 07-24-2024 End: 07-24-2024 ambulatory JOSUE HINOJOSA Not Available Start: 07-24-2024 End: 07-24-2024 Patient encounter procedure Josue Hinojosa DPM Work Phone: [facility] Comment on above: Onychomycosis (Prima ry Dx); Pain in both feet; Corns and callosities Start: 07-24-2024 End: 07-24-2024 Bamboo flowsheet Josue Hinojosa DPM Work Phone: [facility] Start: 07-24-2024 End: 07-24-2024 Bamboo flowsheet Josue Hinojosa DPM Work Phone: [facility] Start: 07-04-2024 End: 07-04-2024 Office outpatient visit 15 minutes Diego Dunne DO Work Phone: [facility] [employer] [address] Comment on above: Insomnia, unspecifie d type; Chronic migraine without aura without status migrainosus, not intractable (CMS/HCC); Tension headache; Primary insomnia Start: 07-04-2024 End: 07-04-2024 ambulatory DIEGO YENIFER Not Available Start: 07-04-2024 End: 07-04-2024 Bamboo flowsheet Diego Yenifer DO Work Phone: [facility] [employer] [address] Start: 07-04-2024 End: 07-04-2024 Bamboo flowsheet Diego Yenifer DO [facility] Start: 04-27-2024 End: 04-27-2024 ambulatory JOSUE HINOJOSA Not Available Start: 03-03-2024 End: 03-03-2024 ambulatory NADIA SOTOMAYOR [facility] Start: 03-03-2024 End: 03-03-2024 Office outpatient visit 25 minutes Nadia Sotomayor MD Work Phone: [facility] Comment on above: Type 2 diabetes lisa itus without complication, without long- term current use of insulin ([facility]) (Primary Dx); Postablative hypothyroidism Start: 01-26-2024 End: 01-26-2024 ambulatory JOSUE HINOJOSA Not Available Start: 11-26-2023 End: 11-26-2023 Patient encounter procedure Josue Hinojosa DPM Work Phone: [facility] Comment on above: Primary osteoarthrit is, left ankle and foot (Primary Dx); Primary osteoarthritis, right ankle and foot Start: 11-15-2023 Orders Only Faheem willson DIE DRAWING CHECKER-SITE ACQUISITION SPECIALIST Work Phone: [facility] Comment on above: Postablative hypothy roidism (Primary Dx) Start: 11-12-2023 End: 11-13-2023 ambulatory FAHEEM ROCK [facility] Start: 04-06-2023 Telephone encounter Adam Lindo MD Work Phone: Radiation Oncology Comment on above: Patient Question Start: 12-21-2022 End: 12-22-[address] NORA LINDO Facility:[facility] Start: 09-28-2022 End: 09-28-[address] CHACHA LEDBETTER Facility:[facility] Start: 09-02-2022 Encounter for genera l adult medical examination without abnormal findings DR CHACHA LEDBETTER [facility] Start: 08-28-2022 End: 08-29-[address] CHACHA LEDBETTER Facility:[facility] Start: 08-28-2022 End: 08-29-2022 Encounter for general adult medical examination without abnormal findings DR CHACHA LEDBETTER Facility:[facility] Start: 06-14-2022 Encounter for other preprocedural examination DR DOCTOR SCHULZ [facility] Start: 06-10-2022 End: 06-11-[address] CHACHA LEDBETTER Facility:[facility] Start: 06-10-2022 End: 06-11-2022 Encounter for other preprocedural examination DR CHACHA LEDBETTER Facility:[facility] Start: 02-03-2022 End: 02-03-2022 ambulatory Heath Silva Other [employer] Other Start: 02-03-2022 Office outpatient vi sit 15 minutes Heath Olexa [facility] Start: 01-12-2022 End: 01-12-2022 ambulatory Heath Olexa Other [employer] Other Start: 01-12-2022 Office outpatient vi sit 15 minutes Heath Olexa [facility] Start: 01-01-2022 End: 01-02-[address] CHACHA LEDBETTER Facility: Start: 11-04-2021 End: 11-04-2021 ambulatory Heath Olexa Other [employer] Other Start: 11-04-2021 Office outpatient vi sit 15 minutes Heath Olexa [facility] Start: 10-14-2021 End: 10-14-2021 ambulatory Heath Olexa Other [employer] Other Start: 10-14-2021 Office outpatient vi sit 15 minutes Heath Olexa [facility] Start: 09-11-2021 End: 09-11-2021 ambulatory Heath Olexa Other [employer] Other Start: 09-11-2021 Telephone encounter Heath Olexa [facility] Start: 10-24-2018 End: 10-25-2018 Patient encounter procedure DEFAULT PHYSICIAN Facility:[facility] Start: 10-04-2018 Patient encounter procedure Faheem Rock DIE DRAWING CHECKER-SITE ACQUISITION SPECIALIST Work Phone: [facility] Procedures Date Procedure Procedure Detail Performing Clinician Start: 12-29-2024 End: 12-29-2024 Gluc bld gluc mntr dev cleared fda spec home use Faheem Rock DIE DRAWING CHECKER-SITE ACQUISITION SPECIALIST Work Phone: Start: 08-25-2024 Gluc bld gluc mntr dev cleared fda spec home use Faheem Rock DIE DRAWING CHECKER-SITE ACQUISITION SPECIALIST Work Phone: Start: 08-25-2024 Microalbumin [Mass/volume] in Urine by Test strip Faheem Rock DIE DRAWING CHECKER-SITE ACQUISITION SPECIALIST Work Phone: Start: 08-17-2024 Radex foot complete minimum 3 views Josue Hinojosa DPM Work Phone: Start: 08-10-2024 Radex foot complete minimum 3 views Josue Hinojosa DPM Work Phone: Start: 03-03-2024 End: 03-03-2024 Gluc bld gluc mntr dev cleared fda spec home use Nadia Sotomayor MD Work Phone: Start: 11-12-2023 Microalbumin [Mass/volume] in Urine by Test strip Faheem Rock DIE DRAWING CHECKER-SITE ACQUISITION SPECIALIST Work Phone: Start: 11-15-2018 Mammography Josue Hinojosa DPM Work Phone: History of operative procedure on knee History of left knee replacement Peri VALDEZ Work Phone: History of operative procedure on knee History of left knee replacement Peri VALDEZ Work Phone: Plan of Treatment Date Care Activity Detail Author Start: 12-29-2025 Adult BMI Screening Adult BMI Screen ing [facility] Register My Info [facility] Start: 12-29-2025 Tobacco Screening Tobacco Screening [facility] Start: 08-25-2025 Adult BMI Screening Adult BMI Screen ing [facility] Start: 08-25-2025 Diabetic foot examination Diabetic Foot Exam [facility] Register My Info [facility] Start: 08-25-2025 Tobacco Screening Tobacco Screening [facility] Start: 08-25-2025 Urine screening for protein Urine Microalbumin [facility] Register My Info [facility] Start: 08-17-2025 End: 08-17-2025 Patient encounter procedure 08/17/2025 11:30 AM EDT Office Visit [facility] [address] [place] [address] Peri Nielsen, PA [address] [place] [address] [facility] Start: 04-27-2025 End: 04-27-2025 Patient encounter procedure [facility] Start: 04-19-2025 End: 04-19-2025 Patient encounter procedure 04/19/2025 3:45 PM EDT Procedure Visit [facility] [address] [place] [phone] Josue Hinojosa, DPM [address] [place] [address] [facility] Start: 03-03-2025 Adult BMI Screening Adult BMI Screen ing [facility] Start: 03-03-2025 Tobacco Screening Tobacco Screening [facility] Start: 01-11-2025 End: 01-11-2025 Patient encounter procedure 01/11/2025 3:45 PM EST Procedure Visit [facility] [address] [place] [phone] Josue Hinojosa, DPM [address] [place] [address] [facility] Start: 12-29-2024 End: 12-29-2024 Patient encounter procedure 12/29/2024 2:00 PM EST Office Visit [facility] [address] [place] [address] Faheem Rock, DIE DRAWING CHECKER-SITE ACQUISITION SPECIALIST [address] [place] [address] [facility] Start: 11-12-2024 Urine screening for protein Urine Microalbumin [facility] Start: 11-02-2024 End: 11-02-2024 Patient encounter procedure 11/02/2024 11:30 AM EST Office Visit [facility] [address] [place] [phone] Josue Hinojosa, DPM [address] [place] [address] Arrived [facility] Comment on above: Arrived Start: 10-25-2024 End: 10-25-2024 Patient encounter procedure 10/25/2024 4:15 PM EST Procedure Visit [facility] [address] [place] [phone] Josue Hinojosa, DPM [address] [place] [address] [facility] Start: 09-27-2024 End: 09-27-2024 Patient encounter procedure 09/27/2024 4:00 PM EST Office Visit [facility] [address] [place] [phone] Josue Hinojosa, DPM [address] [place] [address] [facility] Start: 09-12-2024 End: 09-12-2024 Patient encounter procedure 09/12/2024 5:45 PM EST Office Visit [facility] [address] [place] [phone] Diego Dunne DO [address] [place] [address] [facility] Start: 09-04-2024 End: 09-04-2024 Patient encounter procedure 09/04/2024 4:00 PM EDT Office Visit [facility] [address] [place] [address] Josue Hinojosa, DPM [address] [place] [address] [facility] Start: 09-03-2024 Adult BMI Screening Adult BMI Screen ing [facility] Start: 09-03-2024 Diabetic foot examination Diabetic Foot Exam [facility] Start: 09-03-2024 Tobacco Screening Tobacco Screening [facility] Start: 08-28-2024 End: 08-28-2024 Patient encounter procedure 08/28/2024 4:00 PM EDT Office Visit [facility] [address] [place] [phone] Josue Hinojosa, DPM [address] [place] [address] [facility] Start: 08-25-2024 End: 08-25-2024 Patient encounter procedure 08/25/2024 1:30 PM EDT Office Visit [facility] [address] [place] [address] Faehem Rock, DIE DRAWING CHECKER-SITE ACQUISITION SPECIALIST [address] [place] [address] [facility] Start: 08-21-2024 End: [...] Procedure Visit [facility] Josue Hinojosa, DPM [address] [place] [address] [facility] Start: 08-10-2024 End: 08-10-2024 Patient encounter procedure 08/10/2024 9:45 AM EDT Office Visit [facility] [address] [place] [phone] Hinojosa, Josue H, DPM [address] [place] [address] [facility] Start: 07-24-2024 End: 07-24-2024 Patient encounter procedure 07/24/2024 4:15 PM EDT Procedure Visit [facility] [address] [place] [phone] Josue Hinojosa Huber, DPM [address] [place] [address] [facility] Start: 07-09-2024 COVID-19 Vaccine ( season) COVID-19 Vaccine ( season) [facility] Start: 07-09-2024 COVID-19 Vaccine ( season) COVID-19 Vaccine () [facility] Start: 07-09-2024 Influenza vaccination N [facility] Start: 07-04-2024 End: 07-04-2024 Patient encounter procedure 07/04/2024 4:30 PM EDT [facility] [address] [place] [address] Diego Dunne DO [address] [place] [address] [facility] Comment on above: Arrived Start: 07-03-2024 End: 07-03-2024 Patient encounter procedure 07/03/2024 3:00 PM EDT Office Visit [facility] [address] [facility] [address] [place] [phone] Peri Nielsen PA [address] [place] [address] [facility] Start: 03-03-2024 End: 03-03-2024 Patient encounter procedure 03/03/2024 11:45 AM EDT Office Visit [facility] [address] [place] [phone] Nadia Sotomayor MD [address] [place] [address] [facility] Start: 01-26-2024 End: 01-26-2024 Patient encounter procedure 01/26/2024 4:15 PM EDT Procedure Visit [facility] [address] [place] [phone] Josue Hinojosa DPM [address] [place] [address] [facility] Start: 01-10-2024 End: 11-15-2024 Thyroid profile includes TSH FT4 Thyroid profile includes TSH FT4 Lab Routine Postablative hypothyroidism Expected: 01/10/2024 (Approximate), Expires: 11/15/2024 [facility] Work Phone: Comment on above: Expected: 01/10/2024 (Approximate), Expires: 11/15/2024 Start: 07-09-2023 COVID-19 Vaccine ( season) COVID-19 Vaccine ( season) [facility] Start: 07-09-2023 Influenza vaccination C [facility] Start: 05-05-2023 Screening for malign ant neoplasm of cervix [facility] Start: 11-08-2022 DEPRESSION ASSESSMENT DEPRESSION ASS ESSMENT [facility] Start: 01-16-2022 COVID-19 VACCINE (4 - Booster for Pfizer series) COVID-19 VACCINE (4 - Booster for Pfizer series) [facility] Start: 10-04-2021 DIABETES SCREEN DIABETES SCREEN [facility] Start: 11-15-2019 Screening for malign ant neoplasm of breast Mammogram [facility] Start: 2017 SHINGRIX VACCINE (1 of 2) SHINGRIX VACCINE (1 of 2) [facility] Start: 2012 COLOGUARD (FIT-DNA) COLOGUARD (FIT-D NA) [facility] Start: 2012 Colonoscopy COLONOSCOPY [facility] Start: 2012 COLORECTAL CANCER SCREENING COLORECTAL CANCER SCREENING [facility] Start: [address] COLONOGRAPHY [facility] Start: 2012 FECAL OCCULT BLOOD FECAL OCCULT BLOO D [facility] Start: 2012 LIPID SCREEN LIPID SCREEN [facility] Start: 2012 SIGMOIDOSCOPY SIGMOIDOSCOPY [facility] Start: 2007 Mammography MAMMOGRAM [facility] Start: 1997 HPV TESTING HPV TESTING [facility] Start: 1997 Screening for malign ant neoplasm of cervix [facility] Start: 1988 PAP TESTING PAP TESTING [facility] Start: 1988 Screening for malign ant neoplasm of cervix Pap Smear [facility] Start: 1986 Administration of varicella zoster vaccine Zoster (Shingles) Vaccine (1 of 2) [facility] Start: 1986 DTaP,Tdap and Td Vaccines (1 - Tdap) DTaP,Tdap and Td Vaccines (1 - Tdap) [facility] Start: 1986 Urine microalbumin profile DTAP,TDAP,TD (1 - Tdap) [facility] Start: 1985 HEPATITIS C SCREENING HEPATITIS C SC REENING [facility] Start: 1985 HIV SCREENING HIV SCREENING [facility] Start: 1979 Depression Screening Depression Scre ening [facility] Start: 1967 Glaucoma screening Diabetic Op hthalmology Exam [facility] Start: 1967 HEPATITIS B (1 of 3 - 3-dose series) HEPATITIS B (1 of 3 - 3-dose series) [facility] Start: 1967 Screening for malign ant neoplasm of colon [facility] End: 08-25-2025 Comprehensive metabolic 2000 panel - Serum or Plasma Comprehensive metabolic panel Lab Routine Type 2 diabetes mellitus without complication, without long-term current use of insulin (CMS-HCC) 1 Occurrences starting 08/25/2024 until 08/25/2025 [email or web address] Work Phone: Comment on above: 1 Occurrences starti ng 08/25/2024 until 08/25/2025 End: 08-25-2025 Cyanocobalamin vitamin b-12 Vitamin B12 Lab Routine Type 2 diabetes mellitus without complication, without long-term current use of insulin ([facility]) 1 Occurrences starting 08/25/2024 until 08/25/2025 [facility] Comment on above: 1 Occurrences starti ng 08/25/2024 until 08/25/2025 End: 08-25-2025 Lipid 1996 panel - Serum or Plasma Lipid profile Lab Routine Type 2 diabetes mellitus without complication, without long-term current use of insulin ([facility]) 1 Occurrences starting 08/25/2024 until 08/25/2025 [facility] Comment on above: 1 Occurrences starti ng 08/25/2024 until 08/25/2025 End: 08-25-2025 Microalbumin - Albumin: Creatinine Urine Ratio Microalbumin - Albumin: Creatinine Urine Ratio Lab Routine Type 2 diabetes mellitus without complication, without long-term current use of insulin ([facility]) 1 Occurrences starting 08/25/2024 until 08/25/2025 [facility] Comment on above: 1 Occurrences starti ng 08/25/2024 until 08/25/2025 End: 08-25-2025 Thyroid profile includes TSH FT4 Thyroid profile includes TSH FT4 Lab Routine Postablative hypothyroidism 1 Occurrences starting 08/25/2024 until 08/25/2025 [facility] Comment on above: 1 Occurrences starti ng 08/25/2024 until 08/25/2025 XR Knee - left 1 or 2 Views XR knee 1 or 2 views left Imaging Routine Acute pain of left knee 08/16/2024 3:04 PM EDT [facility] Work Phone: Immunizations Immunization Date Immunization Notes Care Provider Fa cility NEGATED: Highlighted row has not occurred!10-21-2018 influenza, injectable, quadrivalent, preservative free 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 2022 Private Health Insurance [id number] 2020 Unknown 1967 Unknown [id number] 2.16.840.1.064560.3.579. 2.647 1967 Unknown [id number] 2.16.840.1.419467.3.579. 2.593 1967 Unknown [id number] 2.16.840.1.545135.3.579. 2.593 1967 Unknown [id number] 2.16.840.1.224799.3.579. 2.593 1967 Unknown [id number] 2.16.840.1.157813.3.579. 2.593 1967 Unknown [id number] 2.16.840.1.173621.3.579. 2.593 1967 Unknown [id number] 2.16.840.1.554140.3.579. 2.1286 1967 Unknown [id number] 2.16.840.1.989433.3.579. 2.128 1967 Unknown [id number] 2.16.840.1.661421.3.579. 2.1285 1967 Unknown [id number] 2.16.840.1.186727.3.579. 2.128 1967 Unknown [id number] 2.16.840.1.233192.3.579. 2.1285 1967 Unknown [id number] 2.16.840.1.532170.3.579. 2.1286 1967 Unknown [id number] 2.16.840.1.656523.3.579. 2.1258 1967 Unknown [id number] 2.16.840.1.446752.3.579. 2.1258 1967 Unknown [id number] 2.16.840.1.671640.3.579. 2.1258 1967 Unknown [id number] 2.16.840.1.143071.3.579. 2.1258 1967 Unknown [id number] 2.16.840.1.240881.3.579. 2.1258 1967 Unknown [id number] 2.16.840.1.975257.3.579. 2.1258 1967 Unknown [id number] 2.16.840.1.068510.3.579. 2.1258 1967 Unknown [id number] 2.16.840.1.556710.3.579. 2.1258 1967 Unknown [id number] 2.16.840.1.024627.3.579. 2.1258 1967 Unknown [id number] 2.16.840.1.217371.3.579. 2.1258 1967 Unknown [id number] 2.16.840.1.277103.3.579. 2.1258 1967 Unknown [id number] 2.16.840.1.684573.3.579. 2.1258 1967 Unknown [id number] 2.16.840.1.839403.3.579. 2.1259 1959 Unknown [id number] 2.16.840.1.922832.19 1959 Unknown [id number] Social History Date Type Detail Facility Start: 11-03-2023 End: 01-10-2025 Sex Assigned At [facility] Other Start: 09-22-2012 End: 04-27-2023 Tobacco smoking status NHIS Never smoked tobacco [facility] Start: 09-22-2012 End: 04-27-2023 Tobacco use and exposure Smokeless tobacco non-user [facility] Start: 06-25-2022 Alcohol intake Not Asked [facility] Start: 1965 Sex [facility]igned At [facility] Start: 11-03-2023 End: 01-10-2025 Alcohol intake Current drinker of alcohol (finding) [facility] Start: 11-03-2023 End: 01-10-2025 History of Social function [facility] Start: 07-05-2023 Alcohol Comment caffeine intak e: 1-2 cups per day. [facility] Frequency of Alcohol Consumption Never [facility] Start: 11-02-2018 Alcohol Comment Rarely [facility] Start: 06-13-2015 Sex Female (finding) [facility] Medical Equipment Procedure Code Equipment Code Equipment Origin al Text Equipment Identifier Dates [id number], [id number] Star t: 11-03-2018 Goals Date Patient Goal Desired Activity /State Personal health goal Comment on above: Formatting of this n ote might be different from the original. Evaluation of progress towards goal:Discharge home self care w/spouse/family support Clinical Notes 10-14-2021 to 01-10-2025 Josue Hinojosa DPM - 01/10/2025 4:15 PM Hussein Rock APRN-[place] - 12/29/2024 2:00 PM ESTTelephone Encounter - COURTNEY Washburn - 11/20/2024 10:24 PM EST Note Date & Type Note Facility 01-10-2025 History of Presen t illness Narrative Images from the original note were not included. HPI: Richelle Pelaez presents today for post-op appointment of removal of bone left 3rd toe as well as toenail care. Surgery was performed on 08/11/2024 at [facility]. Patient complains of pain 0. Current symptoms are dull. Majority of her symptoms are along the surgical sites. Patient has been elevating as instructed. Diabetic nail care Patient presents in office today for routine toenail care. No other complaints. Side: bilateral. Location: nails on bilateral feet. Duration: ongoing. Severity of symptoms: mild. Onset: gradual. Status: no change. Context: hard to trim, hard to reach. NAILS: thickened, discolored, pain. Relieved by: debridement, filing down nails, clipping nails. History of ulcers/wounds: no. PCP: Hoy. Alcantararonbetsy Sotomayor Date of Last visit: 03/03/2024 Aggravated byshoe gear, pressure. Risk factorswearing enclosed shoes. Examination: General Examination: GENERAL EXAMINATION: awake, aware of surroundings, in no acute distress. Foot exam: 01/11/25 Vascular: DORSALIS PEDIS PULSE: 2/4, bilaterally. POSTERIOR TIBIAL PULSE: 1/4, right 0/4 left. TEMPERATURE GRADIENT: warm to cool. EDEMA: moderate to the bilateral ankle. CAPILLARY FILLING TIME(sec): capillary fill intact bilateral digits less than 3 secs. Neurologic: NEUROLOGIC: light touch is intact to the plantar foot. Dermatologic: SKIN FINDINGS: incision site to the 3rd digit is well healed. Hyperkeratosis along the distal digit is loosening [...] adequate width and length. Assessments: ICD-10-CM 1. Onychomycosis B35.1 2. Corns and callosities L84 3. Pain in both feet M79.671 M79.672 4. Type 2 diabetes mellitus without complication, without long-term current use of insulin ([facility]) E11.9 Plan: Diabetes, Onychomycosis: 1. Nails were debrided in length and thickness by manual and mechanical means. 2. Advised patient on continued proper diabetic foot care including daily monitoring of their feet for any new complaints or concerns that may arise. 3. Discussed importance of tight blood sugar control to prevent future complications. 4. RTC: 9-12 weeks or as needed if problems arise. Callous: 1. Hyperkeratosis/porokeratosis as above noted was debrided. 2. Instructed patient on use of aperture pads or Silipos padding/toe spacers to prevent rubbing and continued development of the hyperkeratosis. 3. Also discussed use of moisturizing creams for overall increased hydration to the skin. 4. Discussed continued use of proper foot gear to avoid excess pressure over the callous site. documented in this encounter [facility] 12-29-2024 History of Presen t illness Narrative REASON FOR VISIT: Richelle Pelaez is seen in follow-up today for hypothyroidism and Type 2 Diabetes. HPI: Last seen 08/25/24. Hgb A1c is 5.9% today, from 5.7% at last visit. She is taking metformin [...] total) by mouth nightly., Disp: , Rfl: amLODIPine (NORVASC) 10 mg tablet, Take 1 tablet (10 mg total) by mouth., Disp: , Rfl: blood sugar diagnostic (FREESTYLE LITE STRIPS) strip, TEST ONCE DAILY, Disp: 200 strip, Rfl: 0 doxepin (SINEquan) 10 mg capsule, Take 1 capsule (10 mg total) by mouth nightly., Disp: , Rfl: lancets (accu-chek soft touch) [facility] [place], Monitor blood sugar daily, Disp: 100 each, Rfl: 5 levothyroxine (SYNTHROID, LEVOTHROID) 150 MCG tablet, TAKE 1 TABLET BY MOUTH EVERY MORNING EXCEPT TAKE 2 TABLETS ON SATURDAYS AND SUNDAYS, Disp: 114 tablet, Rfl: 3 lisinopril (PRINIVIL,ZESTRIL) 5 mg tablet, Take 1 tablet (5 mg total) by mouth in the morning., Disp: , Rfl: metFORMIN XR (GLUCOPHAGE XR) 500 mg 24 hr tablet, TAKE 1 TABLET(500 MG) BY MOUTH DAILY WITH DINNER, Disp: 90 tablet, Rfl: 3 metoprolol succinate XL (TOPROL XL) 50 mg 24 hr tablet, Take 1 tablet (50 mg total) by mouth in the morning., Disp: , Rfl: multivitamin capsule, Take 1 capsule by mouth in the morning., Disp: , Rfl: rimegepant (NURTEC ODT) 75 mg tablet,disintegrating, DISSOLVE 1 TABLET ON THE TONGUE DAILY EVERY OTHER DAY NEEDED FOR MIGRAINE, Disp: , Rfl: verapamil HCl ER (VERELAN PM) 200 mg capsule, [address], Take 2 capsules (400 mg total) by mouth daily., Disp: 180 capsule, Rfl: 0 simvastatin (ZOCOR) 20 mg tablet, Take 1 tablet (20 mg total) by mouth., Disp: , Rfl: PAST MEDICAL HISTORY: Past Medical History: Diagnosis Date Asthma Breast cancer ([facility]) Right breast 2012 DCIS Depression Disease of thyroid gland DM type 2 (diabetes mellitus, type 2) ([facility]) Dry skin Endometrial hyperplasia GERD (gastroesophageal reflux [...] diminished Vibratory sensation diminished Filament test diminished 09/30/24: TSH 0.34, T4 15.5 TSH Date Value Ref Range Status 08/25/2024 2.05 0.49 - 4.67 uIU/mL Final 03/03/2024 0.10 (L) 0.49 - 4.67 uIU/mL Final 11/12/2023 0.06 (L) 0.49 - 4.67 uIU/mL Final T4, free Date Value Ref Range Status 08/25/2024 1.23 0.61 - 1.60 ng/dL Final 03/03/2024 1.40 0.61 - 1.60 ng/dL Final 11/12/2023 1.37 0.61 - 1.60 ng/dL Final T3, free Date Value Ref Range Status 05/18/2017 2.96 2.50 - 3.90 pg/mL Final Lab Results Component Value Date HMHOLHI5A 5.9 12/29/2024 EQGHYAZ8C 5.7 08/25/2024 [id number] 5.5 03/03/2024 Hemoglobin A1C Date Value Ref Range Status 06/04/2022 5.8 4.4 - 6.4 % Final CMP: Lab Results Component Value Date SODIUM 141 08/25/2024 K 3.8 08/25/2024 CL 104 08/25/2024 CO2 27 08/25/2024 ANIONGAP 10 08/25/2024 BUN 22 08/25/2024 CREATININE 0.90 08/25/2024 GLU 114 (A) 12/29/2024 CALCIUM 9.0 08/25/2024 TOTALPROTEI 6.8 08/25/2024 ALBUMIN 4.1 08/25/2024 ALKPHOS 81 08/25/2024 AST 22 08/25/2024 ALT 13 08/25/2024 EGFR 75 08/25/2024 LIPID: Lab Results Component Value Date CHOL 167 09/03/2023 TRIG 106 09/03/2023 HDL 67 09/03/2023 LDLCALC 79 09/03/2023 Urine Microalbumin: Lab Results Component Value Date MICROALBUR 2.3 (H) 08/25/2024 URINECREAT 183.00 08/25/2024 ALBCREATRA 12.6 08/25/2024 TSH Lab Results Component Value Date TSH 2.05 08/25/2024 T4 Lab Results Component Value Date T4 1.23 08/25/2024 ASSESSMENT/PLAN: 1. Type 2 diabetes mellitus without complication, without long-term current use of insulin ([facility]) - POCT Hemoglobin A1c - POCT Glucose Fingerstick 2. Postablative hypothyroidism A1c stable. Continue current medications Decrease sugar/carbohydrates in diet and increase physical activity Schedule dilated eye exam Continue levothyroxine. Will call for recent thyroid labs. A1c elevation is associated with significant risk [...] RETURN TO CLINIC: 4 months RAYNA Guaman 12/29/24 1401 documented in this encounter [facility] 12-15-2024 Note [facility] Note Reason for cardiology consult: Abnormal stress test Chief Complaint: Weakness and chest pressure HPI: Richelle Pelaez is a 59 y.o. female with history of hypertension, type 2 diabetes mellitus, asthma and hypothyroidism. She has history of right breast cancer in 2011 The patient reports that about 2 to 3 weeks ago she was not feeling well, tired all over, no energy, slightly dizzy and with slight chest pressure underneath the left chest. It lasted couple days therefore she decided to go to her PCP. On exam according to the patient she had chest wall tenderness to palpation. The PCP ordered stress test. The patient states that the symptoms resolved after that and never occurred again. She is not sure if she had viral infection however she denies any fever or chills or cough or nausea or vomiting or diarrhea. She had treadmill nuclear stress test however she was able to walk on treadmill only for the 1 minute and 30 seconds but she achieved 85% of age-predicted maximum heart rate. She did not have chest pain or shortness of breath but she states that she was not able to coordinate her legs walking on treadmill. The EKG portion of stress test was normal. The nuclear images showed evidence of anterior, apical and inferoapical fixed defect but normal ejection fraction therefore she was sent for further cardiology evaluation. The patient does not exercise on regular basis however she is physically active at work and she actually works for long hours. She denies chest pain or shortness of breath at rest or with exertion except for the chest pressure she had the 2 days mentioned above. She denies orthopnea or paroxysmal nocturnal dyspnea or dizziness or palpitations. She wears compression stocking because of long hours of standing and she denies legs edema or leg discomfort with exertion She admits snoring. She denies being sleepy or tired during the daytime. She reports that she had a sleep study which was negative. She never been a smoker. She denies alcohol or illicit drugs Regarding family history her grandmother had some type of heart disease. She reports that she had abnormal stress test in the past probably 8 to 9 years ago and at that time she was sent to [facility] and she had cardiac catheterization which was normal. Cardiology ROS: GENERAL: Denies fever, chills, night sweats, weight loss. HEENT: Denies changes in vision, photophobia, changes in hearing, epistaxis, oral bleeding. CARDIOVASCULAR: Denies chest pain, exertional dyspnea, orthopnea/PND, lower extremity edema, palpitations, lightheadedness/dizziness. RESPIRATORY: Denies SOB, coughing, wheezing GI: Denies abdominal pain, nausea/vomiting, heartburn, melena/hematochezia. RENAL: Denies dysuria, hematuria, flank pain. MSK: Denies muscle weakness/pain, arthralgias/joint pain. NEUROLOGIC: Denies LOC, weakness, numbness, headaches. SKIN: Denies abnormal rashes or bleeding. PSYCH: Denies significant anxiety, depression, sleep disturbances. Past Medical History She has a past medical history of Asthma, Cancer ([facility]), Diabetes mellitus ([facility]), Hypertension, and Hypothyroid. Surgical History She has a past surgical history that includes Replacement total knee oncologic; Foot surgery; and Hysterectomy. Social History She reports that she does not have a smoking history on file. She has never used smokeless tobacco. She reports that she does not currently use alcohol. No history on file for drug use. Family History Family History Problem Relation Name Age of Onset Breast cancer Mother Allergies Patient has no known allergies. Medications Current Outpatient Medications: amLODIPine (Norvasc) 10 mg tablet, Take 10 mg by mouth in the morning., Disp: , Rfl: doxepin (SINEquan) 10 mg capsule, Take 20 mg by mouth at bedtime., Disp: , Rfl: levothyroxine (Synthroid, Levoxyl) 150 mcg tablet, Take 150 mcg by mouth before breakfast., Disp: , Rfl: metFORMIN (Glucophage) 500 mg tablet, Use 1 tablet in the mouth or throat 1 (one) time each day., Disp: , Rfl: Nurtec ODT 75 mg tablet,disintegrating, DISSOLVE 1 TABLET ON THE TONGUE DAILY EVERY OTHER DAY NEEDED FOR MIGRAINE, Disp: , Rfl: ProAir HFA 90 mcg/actuation inhaler, Inhale 2 puffs every 4 (four) hours., Disp: , Rfl: simvastatin (Zocor) 20 mg tablet, Take 20 mg by mouth in the evening., Disp: , Rfl: metoprolol succinate XL (Toprol-XL) 50 mg 24 hr tablet, Take 1 tablet (50 mg) by mouth in the morning. Do not crush or chew., Disp: 30 tablet, Rfl: 11 Last Recorded Vitals Visit Vitals BP (!) 145/95 (BP Location: Left arm, Patient Position: Sitting) Pulse 88 Ht 1.575 m (5' 2 ) Wt 111 kg (244 lb) SpO2 97% BMI 44.63 kg/m??? Smoking Status Never Assessed BSA 2.2 m??? Physical Examination: GENERAL: alert and oriented x3, well developed, in no acute distress. HEAD: atraumatic, normocephalic. EYES (more content not included)... [facility] 11-20-2024 Telephone encounter Note Rx sent to pharmacy [facility] 11-20-2024 Miscellaneous Notes Rx sent to pharmacy Patient called requesting antibiotic sent over to [facility] for her dentist appointment. documented in this encounter [facility] 11-20-2024 Telephone encounter Note Patient called requesting antibiotic sent over to [facility] for her dentist appointment. [facility] 11-02-2024 History of Presen t illness Narrative Images from the original note were not included. HPI: Richelle Pelaez presents today for post-op appointment of removal of bone left 3rd toe as well as toenail care. Surgery was performed on 08/11/2024 at [facility]. Patient complains of pain 0. Current symptoms are dull. Majority of her symptoms are along the surgical sites. Patient has been elevating as instructed. Diabetic nail care Patient presents in office today for routine toenail care. No other complaints. Side: bilateral. Location: nails on bilateral feet. Duration: ongoing. Severity of symptoms: mild. Onset: gradual. Status: no change. Context: hard to trim, hard to reach. NAILS: thickened, discolored, pain. Relieved by: debridement, filing down nails, clipping nails. History of ulcers/wounds: no. PCP: Hoy. Alcantararonbetsy Sotomayor Date of Last visit: 03/03/2024 Aggravated byshoe gear, pressure. Risk factorswearing enclosed shoes. Examination: General Examination: GENERAL EXAMINATION: awake, aware of surroundings, in no acute distress. Foot exam: 11/02/24 Vascular: DORSALIS PEDIS PULSE: 2/4, bilaterally. POSTERIOR TIBIAL PULSE: 1/4, right 0/4 left. TEMPERATURE GRADIENT: warm to cool. EDEMA: moderate to the bilateral ankle. CAPILLARY FILLING TIME(sec): capillary fill intact bilateral digits less than 3 secs. Neurologic: NEUROLOGIC: light touch is intact to the plantar foot. Dermatologic: SKIN FINDINGS: incision site to the 3rd digit is well healed. Hyperkeratosis along the distal digit is loosening [...] 2. 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 Onychomycosis B35.1 6. Corns and callosities L84 7. Pain in both feet M79.671 M79.672 Plan: Diabetes, Onychomycosis: 1. Nails were debrided in length and thickness by manual and mechanical means. 2. Advised patient on continued proper diabetic foot care including daily monitoring of their feet for any new complaints or concerns that may arise. 3. Discussed importance of tight blood sugar control to prevent future complications. 4. RTC: 9-12 weeks or as needed if problems arise. Callous: 1. Hyperkeratosis/porokeratosis as above noted was debrided. 2. Instructed patient on use of aperture pads or Silipos padding/toe spacers to prevent rubbing and continued development of the hyperkeratosis. 3. Also discussed use of moisturizing creams for overall increased hydration to the skin. 4. Discussed continued use of proper foot gear to avoid excess pressure over the callous site. She is doing well post-op and has returned to normal shoes and activity. Continue with massage to help with the skin resorption around the surgical sites. Patient would like to proceed with surgery on the right foot in the summer and will follow-up for that next spring. documented in this encounter [facility] 10-09-2024 History of Presen t illness Narrative Images from the original note were not included. HPI: Richelle Pelaez presents today for post-op appointment of removal of bone left 3rd toe. Surgery was performed on 08/11/2024 at [facility]. Patient complains of pain 0. Current symptoms are dull. Majority of her symptoms are along the surgical sites. Patient has been elevating as instructed. Examination: General Examination: GENERAL EXAMINATION: awake, aware of surroundings, in no acute distress. Foot exam: 10/10/24 Vascular: DORSALIS PEDIS PULSE: 2/4, bilaterally. POSTERIOR [...] foot pain M79.672 Plan: Surgery Follow-up Examination: Callous to the plantar foot was removed, no significant depth noted. Most of the callous was removed, no evidence of increased depth. I dispensed a gel pad to apply over the toe to help with the swelling and prevent pressure to the area. We also discussed manipulation and massage to help reduce some of the excess skin to the end of the toe. She will follow-up in 2-3 weeks for recheck. documented in this encounter [facility] 09-04-2024 History of Presen t illness Narrative Images from the original note were not included. HPI: Richelle Pelaez presents today for post-op appointment of removal of bone left 3rd toe. Surgery was performed on 08/11/2024 at [facility]. Patient complains of pain 0. Current [...] will follow-up then. documented in this encounter [facility] 08-21-2024 History of Presen t illness Narrative Images from the original note were not included. HPI: Richelle Pelaez presents today for post-op appointment of removal of bone left 3rd toe. Surgery was performed on 08/11/2024 at [facility]. Patient complains of pain 4. Current [...] foot pain M79.672 Plan: Surgery Follow-up Examination: Sutures were removed [...] RTC: 3 weeks. documented in this encounter [facility] 08-16-2024 History of Presen t illness [...] Use: Not At Risk (10/07/2018) Received from [facility], [facility] Frequency of Alcohol Consumption: Never Average [...] requiring urgent evaluation. documented in this encounter [facility] 08-14-2024 History of Presen t illness Narrative Images from the original note were not included. HPI: Richelle Pelaez presents today for post-op appointment of removal of bone left 3rd toe. Surgery was performed on 08/11/2024 at [facility]. Patient complains of pain 8. Current [...] for suture removal. documented in this encounter [facility] 08-10-2024 History of Presen t illness Narrative Images from the original note were not included. HPI: Patient presents today for their pre-operative appointment. The patient is scheduled for removal of bone left 3rd toe at [facility] with Dr. Hinojosa on 08/11/2024 at 7:30 [...] Patient was dispensed their postoperative prescriptions including: [place]. A post-operative shoe was also dispensed for [...] days after surgery. documented in this encounter [facility] 07-24-2024 History of Presen t illness Narrative Images from the original note were not included. HPI: Diabetic nail care Patient presents in office today for routine toenail care. No other complaints. Side: bilateral. Location: nails on bilateral feet. Duration: ongoing. Severity of symptoms: mild. Onset: gradual. Status: no change. Context: hard to trim, hard to reach. NAILS: thickened, discolored, pain. Relieved by: debridement, filing down nails, clipping nails. History of ulcers/wounds: no. PCP: Hoy. Bam Sotomayor Date of Last visit: 03/03/2024 Aggravated byshoe gear, pressure. Risk factorswearing enclosed shoes. Last blood sugar reading: unknown Examination: General Examination: GENERAL EXAMINATION: awake, aware of surroundings, in no acute distress. Foot exam: 07/25/24 Vascular: DORSALIS PEDIS PULSE: 2/4, bilaterally. POSTERIOR [...] adequate width and length. Assessments: ICD-10-CM 1. Onychomycosis B35.1 2. Pain in both feet M79.671 M79.672 3. Corns and callosities L84 Plan: 1. All mycotic and/or dystrophic nails were debrided in length and thickness by manual and mechanical means. 2. Advised patient of proper foot care to prevent any future complications including daily monitoring of the feet. 3. RTC: 9-12 weeks or as needed if problems arise as patient would like to continue to come in for routine nail care appointments to prevent future pain and problems developing from the overgrowth of the toenails. Callous: 1. Hyperkeratosis/porokeratosis as above noted was debrided. 2. Instructed patient on use of aperture pads or Silipos padding/toe spacers to prevent rubbing and continued development of the hyperkeratosis. 3. Also discussed use of moisturizing creams for overall increased hydration to the skin. 4. Discussed continued use of proper foot gear to avoid excess pressure over the callous site. documented in this encounter [facility] 07-04-2024 History of Presen t illness Narrative Images from the original note were not included. Chief Complaint Patient presents with Migraine Subjective Richelle Pelaez, 59 y.o., female HPI She has had a few headaches over the last year. Patient states that she had a migraine a week ago at work. This was one of the more severe migraines like she had in 2018. She took the Nurtec and states that she felt better in about 10-15 minutes. Patient states that she sleeps about 6-7 hours a night. It depends on the night. More often closer to 7, last night 7.5 hours. Patient states that her sleep is okay. She still has some issues due to the ringing in her ears, she states that it can take her awhile to fall sleep. Pt states that her doxepin does help with her sleep. She has been eating more salad and healthy diet and has lost some weight. She has not been working out like she should. Past Medical History: Diagnosis Date Asthma (CMS/HCC) Breast cancer (CMS/HCC) Diabetes (CMS/HCC) Hypertension (CMS/HCC) Ovarian cancer (CMS/HCC) Thyroid nodule (CMS/HCC) Past Surgical History: Procedure Laterality Date BREAST LUMPECTOMY Right 2012 FOOT SURGERY Bilateral 1989 HYSTERECTOMY 09/2018 ID KNEE SCOPE,CLEAN/DRAIN Left 2020 ID NASAL SURG PROC UNLISTED TOTAL KNEE ARTHROPLASTY Left 06/2022 Family History Adopted: Yes Problem Relation Name Age of Onset Breast cancer Mother Heart disease Father Stroke Maternal Grandmother Diabetes Maternal Grandmother Cancer Maternal Grandmother Stroke Maternal Grandfather Social History Tobacco Use Smoking status: Never Smokeless tobacco: Never Substance Use Topics Alcohol use: Yes Comment: caffeine intake: 1-2 cups per day. Allergies: Patient has no known allergies. General: No fever or chills HEENT: No nasal congestion or runny nose Pulmonary: No shortness of breath or cough Cardiovascular: No chest pain or palpitations GI: No nausea or vomiting : No dysuria or hematuria Musculoskeletal: No new aches or pains or muscle weakness Infectious: no recurrent fevers or infections Dermatologic: No rashes or skin lesions Neurologic: No new headaches or dizziness Vitals: 07/04/24 1634 BP: (!) 146/98 Pulse: 88 SpO2: 98% There is no height or weight on file to calculate BMI. Neurologic exam: General: Normal body habitus, cooperative, pleasant Mental status: Awake, alert to person, place and time. Recent and remote memory are intact. Attention and concentration are normal. Fund of knowledge is appropriate for level of education. HEENT: NC/AT Cranial nerves: CN II: Visual jaimes full to confrontation. No loss of vision CN III, IV, : pupils equal round and reactive to light. Extraocular movements intact. No ptosis present. CN V: Facial sensation is normal. CN VII: Full and symmetric facial movement. CN VIII: Hearing is normal CN IX and X: Palate elevates symmetrically. CN XI: Shoulder shrug is normal bilaterally. CN XII: Tongue is midline without atrophy or fasciculation. Speech: Clear and fluent no aphasia or dysarthria Pronator drift: Negative bilateral upper extremity Coordination: Intact, no signs of dysmetria Good finger to nose and rapid alternating movements Sensory: Sensation is intact to light, temperature and vibratory touch throughout four extremities. Pinprick intact in all four extremities. Motor: LUE 5/5 RUE 5/5 LLE 5/5 RLE 5/5 Tone: Physiologic, no tremor, bradykinesia or rigidity DTR: Bilateral Biceps 2/4 Bilateral BR 2/4 Bilateral Patellar 2/4 No spasticity Gait: Normal to casual gait Romberg's Negative Review and summary of old records: Assessment/Plan Diagnoses and all orders for this visit: Insomnia, unspecified type - doxepin (SINEquan) 10 MG capsule; 2 po q hs - Rimegepant Sulfate (Nurtec) 75 MG tablet dispersible; Take 75 mg by mouth Daily as needed (migraine qod) Chronic migraine without aura without status migrainosus, not intractable (CMS/HCC) Tension headache Primary insomnia 1. Migraine - G43.909 (Primary), [id number]- 2. Insomnia, unspecified - G47.00, [id number]- 58 year old female with headaches made up of migraines amd some tension headaches. These are stable with the current medications. They can fluctuate in frequency but overall doing well. She does have some insomnia in the doxepin helps with that. She is getting around 7 hours of sleep She has been a little more aggressive with diet exercise and has had a little bit of weight loss. She has been tested for SANJUANA in the past and did not have it she does not want repeat tested . She still has the ringing in her ears. ENT could not find anything wrong. 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 She has worked there since age 21. Likely the sound of working there many years has done some damage. . . . Plan Cont with diet exercise and wt loss program continue Nurtec 75 mg 1 at onset of migraine Continue Doxepin 10mg 1-2 po q hs The patient was counseled on proper sleep hygiene and adequate hours of sleep. exercise Clean living in whole foods diet This was discussed with the patient, all questions were answered and they agreed with the treatment plan. The patient is to call with any worsening of the condition or new symptoms. The patient was counseled to monitor their blood pressure and to follow up with PCP regarding the same. The diagnosis was all discussed with the patient. All questions were answered and they agreed with the treatment plan. Patient will call if there are any new issues or questions. Pt has been fully educated on their diagnosis, treatment options, follow up plan, and return instructions Return to clinic: 6 months documented in this encounter [facility] 03-03-2024 History of Presen t illness [...] capsule, Rfl: 0 lancets (accu-chek soft touch) mis, Monitor blood sugar daily (Patient not taking: Reported on 08/25/2024), Disp: 100 each, Rfl: 5 PAST MEDICAL HISTORY: Past Medical History: Diagnosis Date Asthma Breast cancer ([facility]) Right breast 2011 DCIS Depression Disease of thyroid gland DM type 2 (diabetes mellitus, type 2) ([facility]) Dry skin Endometrial hyperplasia GERD (gastroesophageal reflux [...] pg/mL Final Lab Results Component Value Date MHTSPZR8B 5.7 08/25/2024 NPQFNUC3I 5.5 03/03/2024 [id number] 5.6 09/03/2023 Hemoglobin A1C Date Value Ref [...] complication, without long-term current use of insulin ([facility]) - POCT Glucose Fingerstick - POCT Hemoglobin [...] Guaman 08/25/24 1256 documented in this encounter [facility] 03-03-2024 History of Presen t illness Narrative REASON FOR VISIT: Richelle Pelaez is seen in follow-up today for hypothyroidism and Type 2 Diabetes. HPI: Last seen September 03, 2023. Hemoglobin A1c at that time was 5.6%. Her HgA1c 5.5%. She is feeling well, sleeping better. She is taking metformin ER 500 mg once a day. No increased thirst/urination. No blurry vision. No neuropathy. Checking blood sugars in the morning 120-140s. Weight stable. Doesn't always eat the best. No regular exercise. She has a history of hypothyroidism following iodine ablation for Graves disease in 2004. Currently taking levothyroxine 150 mcg daily since November. Labs at that time showed a low TSH, so the levothyroxine dose was reduced. No palpitations, tremors, anxiety, sweats, insomnia or changes in bowel habits. Medications: Current Outpatient Medications: albuterol (PROVENTIL HFA;VENTOLIN [...] (GLUCOPHAGE XR) 500 mg 24 hr tablet, Take 1 tablet (500 mg total) by mouth daily with dinner., Disp: 90 tablet, Rfl: 3 multivitamin capsule, Take 1 capsule by mouth in the morning., Disp: , Rfl: verapamil HCl ER (VERELAN PM) 200 mg capsule, [address], Take 2 capsules (400 mg total) by mouth daily., Disp: 180 capsule, Rfl: 0 lancets (accu-chek soft touch) [facility] [place], Monitor blood sugar daily (Patient not taking: Reported on 10/21/2022), Disp: 100 each, Rfl: 5 PAST MEDICAL HISTORY: Past Medical History: Diagnosis Date Asthma Breast cancer ([facility]) Right breast 2012 DCIS Depression Disease of thyroid gland DM type 2 (diabetes mellitus, type 2) ([facility]) Dry skin Endometrial hyperplasia GERD (gastroesophageal reflux [...] alert. Psychiatric: Mood and Affect: Mood normal. TSH Date Value Ref Range Status 11/12/2023 0.06 (L) 0.49 - 4.67 uIU/mL Final 09/03/2023 0.02 (L) 0.49 - 4.67 uIU/mL Final 10/21/2022 0.59 0.49 - 4.67 uIU/mL Final T4, free Date Value Ref Range Status 11/12/2023 1.37 0.61 - 1.60 ng/dL Final 09/03/2023 1.93 (H) 0.61 - 1.60 ng/dL Final 10/21/2022 1.07 0.61 - 1.60 ng/dL Final T3, free Date Value Ref Range Status 05/18/2017 2.96 2.50 - 3.90 pg/mL Final Lab Results Component Value Date ZMHSBIK6Y 5.5 03/03/2024 ADXBEGF5O 5.6 09/03/2023 FZWNUPQ6U 5.9 10/21/2022 Hemoglobin A1C Date Value Ref Range Status 06/04/2022 5.8 4.4 - 6.4 % Final CMP: Lab Results Component Value Date SODIUM 143 09/03/2023 K 3.7 09/03/2023 CL 107 09/03/2023 CO2 27 09/03/2023 ANIONGAP 9 09/03/2023 BUN 12 09/03/2023 CREATININE 0.71 09/03/2023 GLU 84 09/03/2023 CALCIUM 9.7 09/03/2023 TOTALPROTEI 7.4 09/03/2023 ALBUMIN 4.4 09/03/2023 ALKPHOS 86 09/03/2023 AST 26 09/03/2023 ALT 13 09/03/2023 EGFR >90 09/03/2023 LIPID: Lab Results Component Value Date CHOL 167 09/03/2023 TRIG 106 09/03/2023 HDL 67 09/03/2023 LDLCALC 79 09/03/2023 Urine Microalbumin: Lab Results Component Value Date MICROALBUR 0.7 11/12/2023 URINECREAT 51.79 11/12/2023 ALBCREATRA 13.5 11/12/2023 TSH Lab Results Component Value Date TSH 0.06 (L) 11/12/2023 T4 Lab Results Component Value Date T4 1.37 11/12/2023 ASSESSMENT/PLAN: Clinically stable. Due for updated labs with her thyroid. Continue to take metformin, work on diet/exercise. 1. Type 2 diabetes mellitus without complication, without long-term current use of insulin ([facility]) - POCT Hemoglobin A1c 2. Postablative hypothyroidism - POCT Hemoglobin A1c - TSH; Future - T4, free; Future RETURN TO CLINIC: 6 months documented in this encounter [facility] 03-03-2024 Miscellaneous Notes Addended by: KRISTAL OLIVER on: 03/03/2024 12:37 PM Modules accepted: Orders documented in this encounter [facility] 03-03-2024 Note Addended by: KRISTAL OVIEDO on: 03/03/2024 12:37 PM Modules accepted: Orders [facility] 11-26-2023 History of Presen t illness Narrative See scanned Op note documented in this encounter [facility] 04-06-2023 Miscellaneous Notes I left a [...] LPN documented in this encounter [facility] 02-03-2022 Evaluation note Encounter Date Diagnosis Assessment [...] aid in pain relief at the knee. [employer] [facility] 03-07-2022 Evaluation note* Encounter Date Diagnosis [...] Other specified postprocedural states (ICD-10 - Z98.890) [employer] [facility] 12-28-2021 Evaluation note* Encounter Date Diagnosis [...] - Z98.890) Patient off work until 11/19/21 [employer] [facility] 12-07-2021 Evaluation note* Encounter Date Diagnosis [...] work for off work until next appointment [employer] Other Evaluation noteNo [employer] Other Evaluation note* Diagnosis Primary osteoarthritis, left ankle and foot- Primary Primary osteoarthritis, right ankle and foot [facility] Diagnosis Exostosis of left foot- Primary Left foot pain Pain in soft tissues of limb Osteoarthritis of midtarsal joint of left foot Osteoarthritis of right ankle and foot [facility] Diagnosis Acute pain of left knee- Primary History of left knee replacement [facility] Diagnosis Surgery follow-up examination- Primary Follow-up examination, following unspecified surgery Exostosis of left foot Left foot pain Pain in soft tissues of limb [facility] Diagnosis Surgery follow-up examination- Primary Follow-up examination, following unspecified surgery Exostosis of left foot Left foot pain Pain in soft tissues of limb documented in this encounter [facility]* Diagnosis Postablative hypothyroidism Other postablative hypothyroidism documented in this encounter [facility]* Diagnosis Surgery follow-up examination- Primary Follow-up examination, following unspecified surgery Exostosis of left foot Left foot pain Pain in soft tissues of limb documented in this encounter [facility]* Diagnosis Onychomycosis- Primary Dermatophytosis of nail Pain in both feet Corns and callosities documented in this encounter [facility]* Diagnosis Insomnia, unspecified type Chronic migraine without aura without status migrainosus, not intractable ([facility]) Tension headache Primary insomnia Persistent disorder of initiating or maintaining sleep documented in this encounter [facility]* Diagnosis Surgery follow-up examination- Primary Follow-up examination, following unspecified surgery 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 Onychomycosis Dermatophytosis of nail Corns and callosities Pain in both feet Type 2 diabetes mellitus without complication, without long-term current use of insulin ([facility]) documented in this encounter [facility]* Diagnosis History of left knee replacement- Primary documented in this encounter [facility]* Diagnosis Type 2 diabetes mellitus without complication, without long-term current use of insulin ([facility])- Primary Postablative hypothyroidism Other postablative hypothyroidism documented in this encounter [facility]* Diagnosis Postablative hypothyroidism- Primary Other postablative hypothyroidism documented in this encounter [facility]* Diagnosis Type 2 diabetes mellitus without complication, without long-term current use of insulin ([facility]) Type 2 diabetes mellitus without complication, without long-term current use of insulin ([facility])- Primary Postablative hypothyroidism Other postablative hypothyroidism documented in this encounter [facility]* Diagnosis Type 2 diabetes mellitus without complication, without long-term current use of insulin ([facility])- Primary Postablative hypothyroidism Other postablative hypothyroidism documented in this encounter [facility] note* Diagnosis Type 2 diabetes mellitus without complication, without long-term current use of insulin ([facility])- Primary Postablative hypothyroidism Other postablative hypothyroidism [facility] Diagnosis Onychomycosis- Primary Dermatophytosis of nail Corns and callosities Pain in both feet Type 2 diabetes mellitus without complication, without long-term current use of insulin (CMS/HCC) [facility] - Reported* Type Description Date Medical History asthma Medical History thyroid disease Medical History high blood pressure Medical History diabetes mallitus Medical History high cholesterol Medical History breast nodule Surgical History hysterectomy Surgical History foot surgeries Surgical History sinus surgery Surgical History left knee arthroscopy, medial m enisecectomy. DOS 07/08/21 [employer] Other InstructionsNot on filedocumented in this encounter [facility] filedocument[facility] in [facility] [employer] SystemInstructionsNot on filedocumented in this encounter [facility] Summary Purpose Family History No Family History Records FoundNo Family History Records FoundNo Family History Records FoundNo Family History Records FoundNo Family History Records FoundNo Family History Records FoundNo Family History Records FoundNo Family History Records FoundNo Family History Records FoundNo Family History Records Found Advance Directives No Advanced Directives Records Found Date Activated Date Inactivated Comments 10/21/2018 5:41 AM 10/26/2018 5:32 PM Date Activated Date Inactivated Comments 10/09/2018 5:39 PM 10/12/2018 6:49 PM Latest Code Status on File Code Status Date Activated Date Inactivated Comments Full Code 10/21/2018 5:41 AM 10/26/2018 5:32 PM Code Status History Code Status Date Activated Date Inactivated Comments Full Code 10/09/2018 5:39 PM 10/12/2018 6:49 PM Additional Source Comments INFORMATION SOURCE (unrecogn ized section and content) DATE CREATED AUTHOR 10/27/2018 [facility] DATE CREATED AUTHOR AUTHOR'S ORGANIZ ATION 05/29/[facility] DATE CREATED AUTHOR AUTHOR'S ORGANIZ ATION 01/13/2022 [facility] DATE CREATED AUTHOR AUTHOR'S ORGANIZ ATION 12/26/2022 [facility] DATE CREATED AUTHOR AUTHOR'S ORGANIZ ATION 04/16/2023 [facility] DATE CREATED AUTHOR AUTHOR'S ORGANIZ ATION 11/14/2023 [facility] DATE CREATED AUTHOR AUTHOR'S ORGANIZ ATION 08/28/2024 [facility] DATE CREATED AUTHOR AUTHOR'S ORGANIZ ATION 12/31/2024 [facility] DATE CREATED AUTHOR AUTHOR'S ORGANIZ ATION 01/12/2025 [facility] DATE CREATED AUTHOR AUTHOR'S ORGANIZ ATION 01/29/2025 [facility] REASON FOR VISIT (unrecogniz ed section and content) Reason Comments Diabetes Reason Onset Date Comments 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/2024 Reason Comments Migraine Reason Comments Med Refill Reason Comments Pain Reason Comments Patient Question Recheck Left Knee Source Comments (unrecognize d section and content) In the event this informatio n is protected by the Federal Confidentiality of Alcohol and Drug Abuse Patient Records regulations: The Federal rules restrict any use of the information to criminally investigate or prosecute any alcohol or drug abuse patient.[facility] Care Teams (unrecognized sec tion and content) Audio Installer Relationship Specialty Start Date End Date Chacha Ledbetter MD PCP - General Family Medicine 08/30/19 Audio Installer Relationship Specialty Start Date End Date Chacha Ledbetter MD [address] [place] [address] PCP - General Family Medicine 04/27/23 Audio Installer Relationship Specialty Start Date End Date Chacha Ledbetter MD [address] [place] [address] PCP - General Family Medicine 04/27/23 Diego Dunne DO [address] [place] [address] Referring Physician Neurology 01/04/24 Audio Installer Relationship Specialty Start Date End Date Chacha Ledbetter MD [address] [facility] [place] [address] PCP - General Family Medicine 04/27/23 Diego Dunne DO [address] [place] [address] Referring Physician Neurology 01/04/24 Audio Installer Relationship Specialty Start Date End Date Chacha Ledbetter MD [address] [facility] [place] [address] PCP - General Family Medicine 04/27/23 Diego Dunne DO [address] [place] [address] Referring Physician Neurology 01/04/24 Audio Installer Relationship Specialty Start Date End Date Chacha Ledbetter MD [address] [facility] [place] [address] PCP - General Family Medicine 04/27/23 Diego Dunne DO [address] [place] [address] Referring Physician Neurology 01/04/24 Audio Installer Relationship Specialty Start Date End Date Chacha Ledbetter MD [address] [facility] [place] [address] PCP - General Family Medicine 04/27/23 Diego Dunne DO [address] [place] [address] Referring Physician Neurology 01/04/24 Audio Installer Relationship Specialty Start Date End Date Chacha Ledbetter MD [address] [facility] [place] [address] PCP - General Family Medicine 04/27/23 Diego Dunne DO [address] [place] [address] Referring Physician Neurology 01/04/24 Audio Installer Relationship Specialty Start Date End Date Chacha Ledbetter MD PCP - General Family Medicine 10/21/22 Audio Installer Relationship Specialty Start Date End Date Chacha Ledbetter MD [address] [facility] [place] [address] PCP - General Family Medicine 04/27/23 Diego Dunne DO [address] [place] [address] Referring Physician Neurology 01/04/24 Audio Installer Relationship Specialty Start Date End Date Chacha Ledbetter MD [address] [facility] [place] [address] PCP - General Family Medicine 04/27/23 Diego Dunne DO [address] [place] [address] Referring Physician Neurology 01/04/24 Audio Installer Relationship Specialty Start Date End Date Chacha Ledbetter MD [address] [facility] [place] [address] PCP - General Family Medicine 04/27/23 Diego Dunne DO [address] [place] [address] Referring Physician Neurology 01/04/24 Audio Installer Relationship Specialty Start Date End Date Chacha Ledbetter MD [address] [place] [address] PCP - General Family Medicine 04/27/23 Diego Dunne DO [address] [place] [address] Referring Physician Neurology 01/04/24 Audio Installer Relationship Specialty Start Date End Date Chacha Ledbetter MD [address] [place] [address] PCP - General Family Medicine 04/27/23 Diego Dunne DO [address] [place] [address] Referring Physician Neurology 01/04/24 Audio Installer Relationship Specialty Start Date End Date Chacha Ledbetter MD [address] [place] [address] PCP - General Family Medicine 10/21/22 Audio Installer Relationship Specialty Start Date End Date Chacha Ledbetter MD [address] [place] [address] PCP - General Family Medicine 10/21/22 Audio Installer Relationship Specialty Start Date End Date Chacha Ledbetter MD PCP - General Family Medicine 10/21/22 Audio Installer Relationship Specialty Start Date End Date Chacha Ledbetter MD PCP - General Family [facility] 10/21/22 Audio Installer Relationship Specialty Start Date End Date Chacha Ledbetter MD PCP - General Family [facility] 10/21/22 Audio Installer Relationship Specialty Start Date End Date Chacha Ledbetter MD [address] [place] [address] PCP - General Family [facility] 04/27/23 Diego Dunne DO [address] [place] [address] Referring Physician Neurology 01/04/24 Audio Installer Relationship Specialty Start Date End Date Chacha Ledbetter MD [address] [place] [address] PCP - General Family [facility] 04/27/23 Diego Dunne DO [address] [place] [address] Referring Physician Neurology 01/04/24 FOR RECORDS PERTAINING TO PATIENTS WHO ARE [...] BE BASED ON THE PRIMARY CLINICAL RECORDS. [facility] [employer] [facility]. provides no warranty or guarantee of the accuracy or completeness of information in this document.
== END 2025-01-30 16:24 | disposition home or self-care (01) ==
LOC: MAMMO 16:23
PROVIDERS: PCP Family Medicine; Visit Provider Family Medicine
DX: Z12.31 Encounter for screening mammogram for malignant neoplasm of breast (principal); Z85.3 Personal history of malignant neoplasm of breast; Z80.3 Family history of malignant neoplasm of breast
CPT/HCPCS: 77063; 77067

== ENCOUNTER 2025-08-16 09:32 | Outpatient (OUT) | payer OTHER, SELFPAY ==
--- OUTSIDE RECORDS SUMMARY | 2025-08-16 09:37 | XMS_ITS | CCD ---
Author Organization [facility] Care Team Providers Care Proof Carrier Name Role Phone PHYSICIAN, DEFAULT Unavailable Unavailable [...] Attending Unavailable CRISTINA, DR BURNHAM Admitting Unavailable HOMichelle, DR BURNHAM Primary Care Unavailable ENGELER, DR NORA Zamorano Admitting Unavailable ENGELER, DR NORA Zamorano Attending Unavailable WEST, DR JETT Burns Consulting Unavailable CRISTINA, DR BURNHAM Primary Care Unavailable ENGSHANNAN, DR NORA Zamorano Consulting Unavailable Chacha Ledbetter MD Primary Care Provider FAHEEM ROCK Referring Unavailable CHACHA LEDBETTER Primary Care Unavailable Chacha Ledbetter MD Primary Care Provider [phone] DO Unavailable NADIA SOTOMAYOR Attending Unavailable CHACHA LEDBETTER Referring Unavailable CHACHA LEDBETTER Primary Care Unavailable FAHEEM ROCK Attending Unavailable CHACHA LEDBETTER Referring Unavailable CHACHA LEDBETTER Primary Care Unavailable Chacha Ledbetter MD Primary Care Provider [phone] Chacha Ledbetter MD Primary Care Provider [phone] CHACHA LEDBETTER Referring Unavailable CHACHA LEDBETTER Primary Care Unavailable CHACHA LEDBETTER Referring Unavailable CHACHA LEDBETTER Primary Care Unavailable FAHEEM ROCK Attending Unavailable CHACHA LEDBETTER Referring Unavailable CHACHA LEDBETTER Primary Care Unavailable DIPESH ARSCON Attending Unavailable DIPESH RASCON Attending Unavailable DIPESH RASCON Referring Unavailable Chacha Ledbetter MD Primary Care Provider [phone] Chacha Ledbetter MD Primary Care Provider [phone] Chacha Ledbetter MD Primary Care Provider [phone] DO Attending Provider [phone] JOSUE HINOJOSA Attending Unavailable JOSUE HINOJOSA Attending Unavailable JOSUE HINOJOSA Attending Unavailable JOSUE HINOJOSA Attending Unavailable JOSUE HINOJOSA Attending Unavailable JOSUE HINOJOSA Attending Unavailable PERI NIELSEN Attending Unavailable PERI NIELSEN Referring Unavailable JOSUE HINOJOSA Attending Unavailable JOSUE HINOJOSA Attending Unavailable JOSUE HINOJOSA Attending Unavailable JOSUE HINOJOSA Attending Unavailable Medications Current Medications Medication Drug Class(es) Dates Sig (Normalized) Sig (Original) [id number] 200 actuat albuterol 0.09 mg/actuat metered dose [...] PO QD amoxicillin 500 mg oral tablet (10 sources) Penicillin-class Antibacterial Start: 11-20-2024 take 4 tablets by mouth once at mealtime amoxicillin (Amoxil) 500 MG tablet Indications: History of left knee replacement 4 tabs PO once 30-60 mins before procedure with food 4 tablet 3 11/20/2024 Active aspirin 81 mg delayed release oral tablet (1 source) Platelet Aggregation Inhibitor, Nonsteroidal Anti-inflammatory Drug Start: 06-25-2025 take 1 tablet by mouth once daily Aspirin 81 mg tablet,delayed release (DR/EC) Active 81 MG PO Daily June 25, 2025 12:00am Complies with drug therapy cholecalciferol 0.025 mg oral tablet (3 sources) [...] oral capsule (20 sources) Tricyclic Antidepressant Start: 03-19-2025 End: 06-25-2025 doxepin (SINEquan) 10 MG capsule Indications: Insomnia, unspecified type Take 1-3 capsules at bed time 120 capsule 1 03/19/2025 Active Start: 07-04-2024 doxepin (SINEq uan) 10 MG capsule Indications: Insomnia, unspecified type 2 po q hs 180 capsule 1 07/04/2024 Active Start: 06-21-2024 End: 07-04-2024 take 2 capsules by mouth at bedtime doxepin (SINEquan) 10 MG capsule Indications: Insomnia, unspecified type TAKE 2 CAPSULES BY MOUTH AT BEDTIME 180 capsule 06/21/2024 07/04/2024 Discontinued (Reorder) ferrous sulfate 325 mg oral tablet (3 [...] mg oral tablet (20 sources) l-Thyroxine Start: 025 take 1 tablet by mouth once daily Levothyroxine 150 mcg tablet Active 150 MCG PO Daily June 25, 2025 12:00am Complies with drug therapy Start: 06-19-2025 levothyroxine (SYNTHROID, LEVOTHROID) 150 MCG tablet Indications: Postablative hypothyroidism TAKE 1 TABLET BY MOUTH EVERY MORNING EXCEPT TAKE 2 TABLETS ON SATURDAYS AND SUNDAYS. 112 tablet 1 06/19/2025 Active Start: 04-16-2023 End: 06-19-2025 levothyroxine (Synthroid, Le voxyl) 150 MCG tablet Daily. 04/16/2023 Active Start: [...] release oral tablet (20 sources) Biguanide Start: 06-25-2025 take 1 tablet by mouth every twenty-four hours Metformin 500 mg tablet extended release 24 hr Active MG PO June 25, 2025 12:00am Complies with drug therapy Start: 09-03-2023 End: 08-21-2024 take 1 tablet by mouth once daily at dinner metFORMIN XR (GLUCOPHAGE XR) 500 mg 24 hr tablet Indications: Type 2 diabetes mellitus without complication, without long-term current use of insulin ([facility]) TAKE 1 TABLET(500 MG) BY MOUTH DAILY [...] succinate 50 mg extended release oral tablet (4 sources) beta-Adrenergic Thalia Start: 5 End: 6 take 1 tablet by mouth every twenty-four hours Metoprolol Succinate 50 mg tablet extended release 24 hr Active MG PO June 25, 2025 12:00am Complies with drug therapy multivitamin capsule (8 sources) take 1 capsule by mouth in [...] mg disintegrating oral tablet (20 sources) Start: 06-25-2025 Rimegepant (Nurtec Odt) 75 mg tablet,disintegrating Active 75 MG PO Every 48 hours as needed for migraine headache June 25, 2025 12:00am Complies with drug therapy Start: 07-04-2024 rimegepant (NU RTEC ODT) 75 mg tablet,disintegrating DISSOLVE 1 TABLET [...] hydrochloride 200 mg extended release oral capsule (9 sources) Calcium Channel Thalia Start: 04-18-2019 take [...] every six hours for pain HYDROcodone-aceta minophen ([place]) 5-325 MG tablet Indications: Exostosis of left [...] Active amitriptyline hydrochloride 25 mg oral tablet (15 sources) Tricyclic Antidepressant Start: 09-19-2012 take 1 [...] at bedtime. lisinopril 5 mg oral tablet (9 sources) Angiotensin Converting Enzyme Inhibitor Start: 2016 [...] Problem Classification Problem Date Documented Date Episodic/Chronic Acquired foot deformities (2 sources) Tailor's bunion of right foot; Translations: [Bunionette of right foot] 02-26-2025 Episodic Cancer of breast (17 sources) Intraductal carcinoma in situ of breast; Translations: [Intraductal carcinoma in situ of unspecified breast] Onset: 08-11-2013 08-11-2013 Chronic Complications of surgical procedures or medical care (10 sources) Postprocedural hypothyroidism; 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] Onset: 10-08-2018 09-19-2024 Chronic Coronary atherosclerosis and other heart disease (2 sources) 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; Translations: [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] Onset: 02-05-2025 Chronic Diabetes mellitus without complication (20 sources) Type 2 diabetes mellitus without complications; Translations: [Diabetes mellitus] Onset: 05-21-2017 05-21-2017 Chronic Disorders of lipid metabolism (2 sources) Pure hypercholesterolemia, unspecified; Translations: [Pure hypercholesterolemia, unspecified] Onset: 12-17-2024 Chronic Essential hypertension (10 sources) Hypertensive disorder; Translations: [Essential (primary) hypertension] [...] foot] 08-10-2024 Episodic Other female genital disorders (8 sources) Complex atypical endometrial hyperplasia; Translations: [Endometrial [...] OF BREAST] Onset: 12-25-2022 Episodic Thyroid disorders (8 sources) Hypothyroidism; Translations: [Hypothyroidism, unspecified] Onset: 10-08-2018 10-08-2018 Chronic Unclassified (3 sources) CONTACT W/AND (SUSP) EXPOS COVID-19; Translations: [CONTACT W/AND (SUSP) EXPOS COVID-19] Onset: 09-30-2022 Past or Other Problems Problem Classification Problem Date Documented Date Episodic/Chronic Cancer of breast (13 sources) Personal history of malignant neoplasm of breast; Translations: [History of malignant neoplasm of breast] Onset: 06-27-2014 Episodic Complications of surgical procedures or medical care (8 sources) Non-healing surgical wound; Translations: [Other complications of procedures, not elsewhere classified, initial encounter] Onset: 11-16-2018 11-16-2018 Episodic Joint disorders and dislocations; trauma-related (4 sources) Other tear of medial meniscus, current injury, left knee, subsequent encounter Onset: 10-14-2021 Resolved: 01-12-2022 Episodic Mood disorders (8 sources) Mood disorders Onset: 12-17-2017 12-17-2017 Other [...] 07-04-2024 Episodic Respiratory failure; insufficiency; arrest (adult) (8 sources) Hypoxemic respiratory failure; Translations: [Respiratory failure, unspecified with hypoxia] Onset: 10-21-2018 10-21-2018 Episodic Unclassified (1 source) CONTACT W/AND (SUSP) EXPOS COVID-19; Translations: [CONTACT W/AND (SUSP) EXPOS COVID-19] Onset: 09-28-2022 Unclassified (8 sources) Onset: 05-10-2018 05-10-2018 Results Test Name Value Interpretation Reference Range Facility Office Visiton 02-05-2025 Follow-up visit [id number] Richelle Pelaez 1965 F Date Provider Department [facility] 02/05/2025 DIPESH FAULKNER [facility] Family History Problem Relation Age of Onset Breast cancer Mother Heart disease Father Family Status - Relation Status Age at Mother Father Alive Level of Service:53024 DC OFFICE/OUTPATIENT ESTABLISHED MOD MDM 30 MIN Reason for Visit and Comments: Hypertension [866326] Chest Pain [626207] Normal [facility] CREATININE, SERUMon 01-26-20 25 Creatinine [Mass/Vol] 0.68 mg/dL Normal 0.60-1.20 [facility] Comment on above: Performed By: #### L [id number] #### [facility] ([facility]AKER) [address] [place] [address] GLOMERULAR FILTRATION RATE ML/MIN/1.73 SQ M.PREDICTED 101.5 mL/min/1.73m*2 Normal >60.0 [facility] Comment on above: Result Comment: [facility]???s estimated glomerular filtration rate (eGFR) will no [...] individuals. Performed By: #### L [id number] #### [facility] (NAFISA) [address] [place] [address] CTA HEART CORONARY W IV CONT RAST [...] Aldridge MD. Not Vldtd Invalid Interpretation Code [facility] Labon 01-25-2025 Lab [id number] Richelle Pelaez ae 1965 F Date Provider Department [facility] 01/25/2025 1356-[facility] RESOURCE [facility] NE Medical C Family History Problem Relation Age of Onset Breast cancer Mother Family Status - Relation Status Age at Mother Normal [facility] POCT Glucose Fingerstickon 0 12-29-2024 Glucose [Mass/Vol] 114 mg/dL Abnormal 65 - 99 mg/dL [employer] [facility] Interpretation and review of laboratory results Abnormal [facility] POCT Hemoglobin A1con 2024 HbA1c (Bld) [Mass fraction] 5.9 % 4 - 7 % [facility] [employer] [facility] Office Visiton 12-15-2024 Follow-up visit [id number] Richelle Pelaez ae 1965 F Date Provider Department Center 12/15/2024 [id number] RASCON Family History Problem Relation Age of Onset Breast cancer Mother Family Status - Relation Status Age at Mother Level of Service:92329 DC OFFICE/OUTPATIENT NEW MODERATE MDM 45 MINUTES Reason for Visit and Comments: Chest Pain [382050] - Denies chest pain and SOB. Had stress test last week. Hypertension [730795] Hyperlipidemia [182] - Had lipids in Sep 2024 Normal [facility] COMPREHENSIVE METABOLIC PANE Nehemiah 08-25-2024 Albumin [Mass/Vol] 4.1 g/dL Normal 3.2-5.3 [facility] Comment on above: Performed By: #### C LIZETH, THYR, 2132-07 #### [facility] ([id number]) [address], [address] [place] [address] ALP [Catalytic activity/Vol] 81 U/L Normal 39-130 [facility] Comment on above: Performed By: #### C MP, THYR, 2132-07 #### [facility] ([id number]) [address] [place] [address] ALT [Catalytic activity/Vol] 13 U/L Normal 0-31 [facility] Comment on above: Performed By: #### C MP, THYR, 2132-07 #### [facility] ([id number]) [address], [address] [place] [address] Anion gap [Moles/Vol] 10 mmol/L Normal 5-15 [facility] Comment on above: Performed By: #### C LIZETH THYR, 2132-07 #### [facility] ([id number]) [address], [address] [place] [address] AST [Catalytic activity/Vol] 22 U/L Normal 0-41 [facility] Comment on above: Performed By: #### C LIZETH, THYR, 2132-07 #### [facility] ([id number]) [address], [address] [place] [address] Bilirubin [Mass/Vol] 0.8 mg/dL Normal 0.3-1.2 [facility] Comment on above: Performed By: #### Smitha STANLEY THYR, 2132-07 #### [facility] ([id number]) [address], [address] [place] [address] Calcium [Mass/Vol] 9.0 mg/dL Normal 8.5-10.5 [facility] Comment on above: Performed By: #### C LIZETH THYR, 2132-07 #### [facility] ([id number]) [address], [address] [place] [address] Chloride [Moles/Vol] 104 mmol/L Normal 98-109 [facility] Comment on above: Performed By: #### Smitha STANLEY THYR, 2132-07 #### [facility] ([id number]) [address], [address] [place] [address] CO2 [Moles/Vol] 27 mmol/L Normal 22-32 [facility] Comment on above: Performed By: #### C LIZETH, THYR, 2132-07 #### [facility] ([id number]) [address] [place] [address] Creatinine [Mass/Vol] 0.90 mg/dL Normal 0.40-1.00 [facility] Comment on above: Result Comment: METH OD TRACEABLE TO IDMS STANDARD Performed By: #### C ASHLEY STANLEY, 2132-07 #### [facility] ([id number]) [address], [address] [place] [address] GFR/1.73 sq M.predicted among non-blacks MDRD (S/P/Bld) [Vol rate/Area] 75 mL/min/{1.73_m2} Normal >59 [facility] Comment on above: Result Comment: Reported eGFR is based on the CKD-EPI 2020 equation that does not use a race coefficient. Performed By: #### C ASHLEY STANLEY, 2132-07 #### [facility] ([id number]) [address], [address] [place] [address] Glucose [Mass/Vol] 101 mg/dL High 65-99 [facility] Comment on above: Performed By: #### ASHLEY Bone MP, 2132-07 #### [facility] ([id number]) [address], [address] [place] [address] Potassium [Moles/Vol] 3.8 mmol/L Normal 3.5-5.0 [facility] Comment on above: Performed By: #### ASHLEY Bone MP, 2132-07 #### [facility] ([id number]) [address], [address] [place] [address] Protein [Mass/Vol] 6.8 g/dL Normal 6.0-8.0 [facility] Comment on above: Performed By: #### ASHLEY Bone MP, 2132-07 #### [facility] ([id number]) [address], [address] [place] [address] Sodium [Moles/Vol] 141 mmol/L Normal 134-146 [facility] Comment on above: Performed By: #### ASHLEY Bone MP, 2132-07 #### [facility] ([id number]) [address], [address] [place] [address] Urea nitrogen [Mass/Vol] 22 mg/dL Normal 5-23 [facility] Comment on above: Performed By: #### C MP, THYR, 2132-07 #### [facility] ([id number]) [address], [address] [place] [address] MICROALBUMIN - ALBUMIN:CREAT ININE URINE RATIOon 08-25-2024 ALB/CREAT RATIO 12.6 mg/g creat Normal 0.0-30.0 [facility] Comment on above: Performed By: #### M ALBU #### [facility] ([id number]) [address], [address] [place] [address] Albumin DL <= 20 mg/L (U) [Mass/Vol] 2.3 mg/dL High 0.0-1.9 [facility] Comment on above: Performed By: #### M ALBU #### [facility] ([id number]) [address], [address] [place] [address] URINE CREAT 183.00 mg/dL Normal [facility] Comment on above: Performed By: #### M ALBU #### [facility] ([id number]) [address], [address] [place] [address] POCT Glucose Fingerstickon 1 Glucose [Mass/Vol] 145 mg/dL Abnormal 65 - 99 mg/dL [facility] Interpretation and review of laboratory results Abnormal [facility] POCT Hemoglobin A1con 2023 HbA1c (Bld) [Mass fraction] 5.7 % 4 - 7 % [facility] Interpretation and review of laboratory results Abnormal [facility] THYROID PROFILEon 08-25-2024 Free T4 [Mass/Vol] 1.23 ng/dL Normal 0.61-1.60 [facility] Comment on above: Performed By: #### C MP, THYR, 2132-07 #### [facility] ([id number]) [address], [address] [place] [address] TSH 2.05 uIU/mL Normal 0.49-4.67 [facility] Comment on above: Performed By: #### C MP, THYR, 2132-07 #### [facility] ([id number]) [address], [address] [place] [address] VITAMIN B12on 08-25-2024 Cobalamin (Vitamin B12) [Mass/Vol] 619 pg/mL Normal 180-914 [facility] Comment on above: Performed By: #### C MP, THYR, 2132-07 #### [facility] ([id number]) [address], [address] [place] [address] XR Foot - left 3 [facility] [...] of the ends of the toes 2,3,4 [facility] Radiology Study observation (narrative) [facility] XR Foot - left 3 [facility] Result: Three views of the left foot: AP, MO, LAT were performed today in the office. Radiographs were read by myself and demonstrate: No evidence of acute fracture or dislocation. Narrowing to the tarsometatarsal joint left. 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 There is enlargement and prominence to the distal left 3rd digit [facility] Radiology Study observation (narrative) [facility] POCT Glucose Fingerstickon 0 03-03-2024 Glucose [Mass/Vol] 94 mg/dL 65 - 99 mg/dL [facility] POCT Hemoglobin A1con 2023 HbA1c (Bld) [Mass fraction] 5.5 g/dL 4 - 7 g/dL [facility] THYROID PROFILEon 03-03-2024 Free T4 [Mass/Vol] 1.40 ng/dL Normal 0.61-1.60 [facility] Comment on above: Performed By: #### T HYR #### [facility] ([id number]) [address] [place] [address], [facility] [address] [place] [address] TSH 0.10 uIU/mL Low 0.49-4.67 [facility] Comment on above: Performed By: #### T HYR #### [facility] ([id number]) [address] [place] [address] [address] [place] [address] MICROALBUMIN - ALBUMIN:CREAT ININE URINE RATIOon 11-12-2023 ALB/CREAT RATIO 13.5 mg/g creat Normal 0.0-30.0 [facility] Comment on above: Performed By: #### M ALBU #### [facility] ([id number]) [address] [place] [address], [address] [place] [address] Albumin DL <= 20 mg/L (U) [Mass/Vol] 0.7 mg/dL Normal 0.0-1.9 [facility] Comment on above: Performed By: #### M ALBU #### [facility] ([id number]) [address] [place] [address] [address] [place] [address] URINE CREAT 51.79 mg/dL Normal [facility] Comment on above: Performed By: #### M ALBU #### [facility] ([id number]) [address] [place] [address] [address] [place] [address] THYROID PROFILEon 11-12-2023 Free T4 [Mass/Vol] 1.37 ng/dL Normal 0.61-1.60 [facility] Comment on above: Performed By: #### T HYR #### [facility] ([id number]) [address] [place] [address] TSH 0.06 uIU/mL Low 0.49-4.[address] [facility] Comment on above: Performed By: #### T HYR #### [facility] ([id number]) [address] [place] [address] Binta 04-06-2023 CNPN Telephone (RADTSA) RCIHELLE PELAEZ ([id number]) 1965 F Date Time Provider Department 04/06/23 [...] Fully Assessed Reason for Visit: Patient Question [5777] Prescriptions as of 04/06/2023 - amLODIPine (NORVASC) [...] Encounter Status:Closed by COURTNEY GARCIA on 04/06/23 [facility] MG MAMM DIAGNOSTIC 3D MARGARITA CA Don 12-21-2022 MG MAMM DIAGNOSTIC 3D MARGARITA CAD Patient: RICHELLE PELAEZ Exam Date: 12/21/2022 : 1965 Gender:F Ordering : DR NORA LINDO M.D. Admission #: [id number] Family : Order #: [id number] CLICK HERE TO VIEW EXAM RADIOLOGY REPORT [...] breast cancer at age 75. LOCATION: [facility] BREAST COMPOSITION: Almost entirely fatty. [...] MD on 12/21/2022 at 13:48 Normal [facility] Covid-19 PCR (CVDTBH)on 09-09 SARS-CoV-2 (COVID-19) RNA ERIC+probe Ql (Unsp spec) Not detected Normal NOT DETECTED [facility] Comment on above: Result Comment: [...] for this test is supported by the [place] of Health and Human Service's declaration that [...] used). Performed By: #### C VDTB #### [facility] [address] [place] [address] Dr. Lisbeth Ramirez INFLUENZA A AND B [facility] 09-28 [facility] SEE BELOW Normal [facility] Comment on above: Result Comment: Nega tive for Flu A protein angiten. Infection due to Flu A cannot be ruled out. Flu A angiten in the sample may be below the detection limit of the test. Performed By: #### I NFLUAB #### [facility] [address] [place] [address] Dr. Lisbeth Ramirez INFLUBANNER SEE BELOW Normal [facility] Comment on above: Result Comment: Nega tive for Flu B protein antigen. Infection due to Flu B cannot be ruled out. Flu B antigen in the sample may be below the detection limit of the test. Performed By: #### I NFLUAB #### [facility] [address] [place] [address] Dr. Lisbeth Ramirez INFLUENZA A AG Negative Normal NEGATIVE SEE COMMENT [facility] Comment on above: Performed By: #### I NFLUAB #### [facility] [address] [place] [address] Dr. Lisbeth Ramirez INFLUENZA B AG Negative Normal NEGATIVE SEE COMMENT [facility] Comment on above: Performed By: #### I NFLUAB #### [facility] [address] [place] [address] Dr. Lisbeth Ramirez INTERNAL CONTROLS Within Normal Limits Normal Wi thin Normal Limits [facility] Comment on above: Performed By: #### I NFLUAB #### [facility] [address] [place] [address] Dr. Lisbeth Ramirez INSULINon 08-29-2022 Insulin 30.4 uIU/mL Critically high 2.6-24.9 [facility] Comment on above: Performed By: #### I NSULIN #### [facility] [address] [place] [address] Dr. Lisbeth Ramirez CBC AUTO DIFFon 08-28-2022 BASO # 0.1 103/ul Normal 0.0-0.1 [facility] Comment on above: Performed By: #### C BC #### [facility] [address] [place] [address] Dr. Lisbeth Ramirez Basophils/100 WBC (Bld) 0.8 % Normal 0.2-2.[address] [facility] Comment on above: Performed By: #### C BC #### [facility] [address] [place] [address] Dr. Lisbeth Ramirez EO # 0.2 103/ul Normal 0.0-0.[address] [facility] Comment on above: Performed By: #### C BC #### [facility] [address] [place] [address] Dr. Lisbeth Ramirez Eosinophils/100 WBC (Bld) 2.5 % Normal 0.9-7.[address] [facility] Comment on above: Performed By: #### C BC #### [facility] [address] [place] [address] Dr. Lisbeth Ramirez Erythrocyte distribution width (RBC) [Ratio] 13.0 % Normal 11.0-15.0 [facility] Comment on above: Performed By: #### C BC #### [facility] [address] [place] [address] Dr. Lisbeth Ramirez Hematocrit (Bld) [Volume fraction] 42.1 % Normal 36.0-48.0 [facility] Comment on above: Performed By: #### C BC #### [facility] [address] [place] [address] Dr. Lisbeth Ramirez Hemoglobin (Bld) [Mass/Vol] 14.0 g/dL Normal 12.0-16.[address] [facility] Comment on above: Performed By: #### C BC #### [facility] [address] [place] [address] Dr. Lisbeth Ramirez IG # 0.02 10e3/ul Normal 0.00-0.03 [facility] Comment on above: Performed By: #### C BC #### [facility] [address] [place] [address] Dr. Lisbeth Ramirez IG % 0.2 % Normal 0.0-0.5 [facility] Comment on above: Performed By: #### C BC #### [facility] [address] [place] [address] Dr. Lisbeth Ramirez LYMPH # 1.8 103/ul Normal 1.2-3.[address] [facility] Comment on above: Performed By: #### C BC #### [facility] [address] [place] [address] Dr. Lisbeth Ramirez Lymphocytes/100 WBC (Bld) 20.9 % Normal 20.5-60.[address] [facility] Comment on above: Performed By: #### C BC #### [facility] [address] [place] [address] Dr. Lisbeth Ramirez MANUAL DIFF REQ NO Normal The [facility] Comment on above: Performed By: #### C BC #### [facility] [address] [place] [address] Dr. Lisbeth Ramirez MCH (RBC) [Entitic mass] 28.7 pg Normal 26.7-34.0 [facility] Comment on above: Performed By: #### C BC #### [facility] [address] [place] [address] Dr. Lisbeth Ramirez MCHC (RBC) [Mass/Vol] 33.3 g/dL Normal 29.9-35.2 [facility] Comment on above: Performed By: #### C BC #### [facility] [address] [place] [address] Dr. Lisbeth Ramirez MCV (RBC) [Entitic vol] 86.4 fL Normal 81.0-99.0 [facility] Comment on above: Performed By: #### C BC #### [facility] [address] [place] [address] Dr. Lisbeth Ramirez MONO # 0.8 103/ul Normal 0.3-0.8 [facility] Comment on above: Performed By: #### C BC #### [facility] [address] [place] [address] Dr. Lisbeth Ramirez Monocytes/100 WBC (Bld) 8.8 % Normal 1.7-12.0 [facility] Comment on above: Performed By: #### C BC #### [facility] [address] [place] [address] Dr. Lisbeth Ramirez NEUT # 5.8 103/ul Normal 1.4-6.5 [facility] Comment on above: Performed By: #### C BC #### [facility] [address] [place] [address] Dr. Lisbeth Ramirez Neutrophils/100 WBC (Bld) 66.8 % Normal 43.0-75.0 [facility] Comment on above: Performed By: #### C BC #### [facility] [address] [place] [address] Dr. Lisbeth Ramirez Platelet mean volume (Bld) [Entitic vol] 10.5 fL Normal 9.5-13.5 [facility] Comment on above: Performed By: #### C BC #### [facility] [address] [place] [address] Dr. Lisbeth Ramirez PLT 222 103/ul Normal 150-450 [facility] Comment on above: Performed By: #### C BC #### [facility] [address] [address] [address] Lisbeth Ramirez RBC 4.87 106/ul Normal 4.20-5.40 [facility] Comment on above: Performed By: #### C BC #### [facility] [address] [address] [address] Lisbeth Ramirez WBC 8.7 103/ul Normal 4.0-11.0 [facility] Comment on above: Performed By: #### C BC #### [facility] [address] [address] [address] Lisbeth Ramirez FREE THYROXINE INDEX T7on FTI 3.80 Normal 1.30-4.50 [facility] Comment on above: Performed By: #### T SH, CMP, LIPID, T7 ####[facility] [address] [address]Dr. Lisbeth Ramirez T3U 33.0 % Normal 30.0-39.0 [facility] Comment on above: Performed By: #### T SH, CMP, LIPID, T7 ####[facility] [address] [id number]. Lisbeth Ramirez T4 [Mass/Vol] 11.50 ug/dL Normal 4.80-13.90 [facility] Comment on above: Performed By: #### T SH, CMP, LIPID, T7 ####[facility] [address] [place] [id number]. Lisbeth Ramirez GLYCOHEMOGLOBIN A1Con 2021 ADA RECOMMENDATION SEE BELOW Normal [facility] Comment on above: Result Comment: ADA RECOMMENDED LIMIT 4.0 - 6.0 ADA THERAPEUTIC TARGET < 7.0 ACTION SUGGESTED > 7.0 Performed By: #### A 1C #### [facility] [address] [address] [address] Lisbeth Ramirez Glucose [Mass/Vol] 105 mg/dL Normal [facility] Comment on above: Performed By: #### A 1C #### [facility] [address] [place], [place] [address] Dr. Lisbeth Ramirez HbA1c (Bld) [Mass fraction] 5.3 % Normal 4.5-6.2 [facility] Comment on above: Performed By: #### A 1C #### [facility] [address] [place], [place] [address] Dr. Lisbeth Ramirez IRONon 08-28-2022 Iron [Mass/Vol] 54.0 ug/dL Normal 50.0-170.0 [facility] Comment on above: Performed By: #### I DAGO #### [facility] [address] [address] [address] Lisbeth Ramirez LIPID PROFILEon 08-28-2022 CHOL-HDL RATIO NORM SEE BELOW Normal [facility] Comment on above: Result Comment: 3.3 - 4.4 LOW RISK 4.4 - 7.1 AVERAGE RISK 7.1 - 11.0 MODERATE RISK >11.0 HIGH RISK Performed By: #### T SH, CMP, LIPID, T7 ####[facility] [address] [place] [id number]. Lisbeth Ramirez Cholesterol [Mass/Vol] 187 mg/dL Normal <=200 [facility] Comment on above: Performed By: #### T SH, CMP, LIPID, T7 ####[facility] [address] [place], [place] [address]Xa. Lisbeth Ramirez Cholesterol in HDL [Mass/Vol] 67 mg/dL Critically high 40-60 [facility] Comment on above: Performed By: #### T SH, CMP, LIPID, T7 ####[facility] [address] [place], [place] [address]Mb. Lisbeth Ramirez Cholesterol in LDL [Mass/Vol] 95.8 mg/dL Normal [facility] Comment on above: Performed By: #### T SH, CMP, LIPID, T7 ####[facility] [address] [place], [place] [address]Li. Lisbeth Ramirez Cholesterol.total/C holesterol in HDL [Mass ratio] 2.8 {ratio} Normal [facility] Comment on above: Performed By: #### T SH, CMP, LIPID, T7 ####[facility] [address] [place] [id number]. Lisbeth Ramirez HDL NORMAL > or = 60 mg/dl - LO W CARDIOVASCULAR RISK <40 mg/dl - HIGH CARDIOVASCULAR RISK Normal [facility] Comment on above: Performed By: #### T SH, CMP, LIPID, T7 ####[facility] [address] [place] [id number]. Lisbeth Ramirez LDL CALC NORMAL SEE BELOW Normal [facility] Comment on above: Result Comment: <100 mg/dl OPTIMAL 100 - 129 mg/dl NEAR OR ABOVE OPTIMAL 130 - 159 mg/dl BORDERLINE HIGH 160 - 189 mg/dl HIGH >190 mg/dl VERY HIGH Performed By: #### T SH, CMP, LIPID, T7 ####[facility] [address] [address]Dr. Lisbeth Ramirez Triglyceride [Mass/Vol] 121 mg/dL Normal <=150 [facility] Comment on above: Performed By: #### T SH, CMP, LIPID, T7 ####[facility] [address] [address]Dr. Lisbeth Ramirez VLDL CALC 24.2 mg/dL Normal [facility] Comment on above: Performed By: #### T SH, CMP, LIPID, T7 ####[facility] [address] [place] [address]Dr. Lisbeth Ramirez PROF 14(COMP METB)on 022 Albumin [Mass/Vol] 4.1 g/dL Normal 3.4-5.0 [facility] Comment on above: Performed By: #### T SH, CMP, LIPID, T7 ####[facility] [address] [place] [phone]. Lisbeth Ramirez Albumin/Globulin [Mass ratio] 0.9 {ratio} Normal [facility] Comment on above: Performed By: #### T SH, CMP, LIPID, T7 ####[facility] [address] [place] [id number]. Lisbeth Ramirez ALP [Catalytic activity/Vol] 94 U/L Normal 46-[address] [facility] Comment on above: Performed By: #### T SH, CMP, LIPID, T7 ####[facility] [address] [place] [address]Dr. Lisbeth Ramirez ALT [Catalytic activity/Vol] 13 U/L Critically low 14-59 [facility] Comment on above: Performed By: #### T SH, CMP, LIPID, T7 ####[facility] [address] [place] [address]Dr. Lisbeth Ramirez Anion gap [Moles/Vol] 11.4 mmol/L Normal [facility] Comment on above: Performed By: #### T SH, CMP, LIPID, T7 ####[facility] [address] [place] [address]Dr. Lisbeth Ramirez AST [Catalytic activity/Vol] 23 U/L Normal 15-[address] [facility] Comment on above: Performed By: #### T SH, CMP, LIPID, T7 ####[facility] [address] [place], [place] [address]Dr. Lisbeth Ramirez Bilirubin [Mass/Vol] 0.7 mg/dL Normal 0.2-1.0 [facility] Comment on above: Performed By: #### T SH, CMP, LIPID, T7 ####[facility] [address] [place], [place] [address]Dr. Lisbeth Ramirez Calcium [Mass/Vol] 9.5 mg/dL Normal 8.5-10.1 [facility] Comment on above: Performed By: #### T SH, CMP, LIPID, T7 ####[facility] [address] [place] [address]Dr. Lisbeth Ramirez Chloride [Moles/Vol] 104 mmol/L Normal 98-[address] [facility] Comment on above: Performed By: #### T SH, CMP, LIPID, T7 ####[facility] [address] [place], [place] [address]Dr. Lisbeth Ramirez CO2 [Moles/Vol] 25.9 mmol/L Normal 21.0-32.0 [facility] Comment on above: Performed By: #### T SH, CMP, LIPID, T7 ####[facility] [address] [place] [address]Dr. Lisbeth Ramirez Creatinine [Mass/Vol] 0.67 mg/dL Normal 0.55-1.02 [facility] Comment on above: Performed By: #### T SH, CMP, LIPID, T7 ####[facility] [address] [place] [address]Dr. Lisbeth Ramirez EGFR-AF ALGERIAN >60 Normal >=[address] [facility] Comment on above: Performed By: #### T SH, CMP, LIPID, T7 ####[facility] [address] [place] [address]Dr. Lisbeth Ramirez EGFR-NON AF ALGERIAN >60 Normal >=[address] [facility] Comment on above: Performed By: #### T SH, CMP, LIPID, T7 ####[facility] [address] [place] [address]Dr. Lisbeth Ramirez Globulin (S) [Mass/Vol] 4.2 g/dL Normal [facility] Comment on above: Performed By: #### T SH, CMP, LIPID, T7 ####[facility] [address] [place] [address]Dr. Lisbeth Ramirez Glucose [Mass/Vol] 103 mg/dL Normal 74-106 [facility] Comment on above: Performed By: #### T SH, CMP, LIPID, T7 ####[facility] [address] [place] [address]Dr. Lisbeth Ramirez Potassium [Moles/Vol] 3.6 mmol/L Normal 3.5-5.1 [facility] Comment on above: Performed By: #### T SH, CMP, LIPID, T7 ####[facility] [address] [place] [address]Dr. Lisbeth Ramirez Protein [Mass/Vol] 8.3 g/dL Critically high 6.4-8.2 [facility] Comment on above: Performed By: #### T SH, CMP, LIPID, T7 ####[facility] [address] [place] [address]Dr. Lisbeth Ramirez Sodium [Moles/Vol] 138 mmol/L Normal 136-145 [facility] Comment on above: Performed By: #### T SH, CMP, LIPID, T7 ####[facility] [address] [place] [address]Dr. Lisbeth Ramirez Urea nitrogen [Mass/Vol] 12.0 mg/dL Normal 7.0-18.0 [facility] Comment on above: Performed By: #### T SH, CMP, LIPID, T7 ####[facility] [address] [address]Dr. Lisbeth Ramirez Urea nitrogen/Creatinine [Mass ratio] 17.9 mg/mg Normal [facility] Comment on above: Performed By: #### T SH, CMP, LIPID, T7 ####[facility] [address] [address]Dr. Lisbeth Ramirez TSHon 08-28-2022 TSH 0.572 uIU/mL Normal 0.358-3.740 [facility] Comment on above: Performed By: #### T SH, CMP, LIPID, T7 ####[facility] [address] [place] [address]DrJuliana Ramirez UA (CLEAN/CATCH) TRY ON BASTER/MICRO I F IND.on 06-10-2022 Bilirubin Ql (U) Negative Normal NEGATIVE [facility] Comment on above: Performed By: #### U ACSBLAISE ICRO #### [facility] [address] [place] [address] Dr. Lisbeth Ramirez Clarity (U) CLEAR Normal CLEAR [facility] Comment on above: Performed By: #### U ACSBLAISE UMICRO #### [facility] [address] [place] [address] Dr. Lisbeth Ramirez Color (U) YELLOW Normal YELLOW [facility] Comment on above: Performed By: #### U ACSBLAISE UMICRO #### [facility] [address] [place] [address] Dr. Lisbeth Ramirez Glucose Ql (U) Negative Normal NEGATIVE [facility] Comment on above: Performed By: #### U ACSIND, UMICRO #### [facility] [address] [address] [address] Lisbeth Ramirez Hemoglobin Ql (U) MODERATE Abnormal NEGATIVE [facility] [place] Comment on above: Performed By: #### U ACSIND, UMICRO #### [facility] [address] [address] [address] Lisbeth Ramirez Ketones Ql (U) Negative Normal NEGATIVE [facility] Comment on above: Performed By: #### U ACSIND, UMICRO #### [facility] [address] [address] [address] Lisbeth Ramirez LEUKOCYTES TRACE Abnormal NEGATIVE [facility] Comment on above: Performed By: #### U ACSIND, UMICRO #### [facility] [address] [address] [address] Lisbeth Ramirez Nitrite Ql (U) Negative Normal NEGATIVE [facility] Comment on above: Performed By: #### U ACSIND, UMICRO #### [facility] [address] [place] [address] Dr. Lisbeth Ramirez pH (U) 6.0 [pH] Normal 5-9 [facility] Comment on above: Performed By: #### U ACSIND, UMICRO #### [facility] [address] [place] [address] Dr. Lisbeth Ramirez SPEC GRAVITY 1.025 Normal 1.005-<=1.025 [facility] Comment on above: Performed By: #### U ACSIND, UMICRO #### [facility] [address] [place] [address] Dr. Lisbeth Ramirez UA PROTEIN Negative Normal NEGATIVE/ TRACE [facility] Comment on above: Performed By: #### U ACSIND, UMICRO #### [facility] [address] [address] [address] Lisbeth Ramirez UR MICRO IND INDICATED Normal [facility] Comment on above: Performed By: #### U ACSIND, UMICRO #### [facility] [address] [place] [address] Dr. Lisbeth Ramirez Urobilinogen Qn (U) 0.2 {Ricci'U}/dL Normal 0.2 - 1. 0 [facility] Comment on above: Performed By: #### U ACSIND, UMICRO #### [facility] [address] [address] [address] Lisbeth Ramirez URINE MICROSCOPIC ONLYon BACTERIA NONE SEEN Normal NONE SEEN [facility] Comment on above: Performed By: #### U ACSBLAISE, UMICRO #### [facility] [address] [place] [address] Dr. Lisbeth aRmirez Bacteria identified Cx Nom (U) NOT INDICATED Normal [facility] Comment on above: Performed By: #### U ACSIND, UMICRO #### [facility] [address] [place] [address] Dr. Lisbeth Ramirez CAST NONE SEEN Normal NONE SEEN [facility] Comment on above: Performed By: #### U ACSBLAISE, UMICRO #### [facility] [address] [place] [address] Dr. Lisbeth Ramirez Crystals LM Nom (Urine sed) NONE SEEN Normal NONE SEEN [facility] Comment on above: Performed By: #### U ACSBLAISE UMICRO #### [facility] [address] [place] [address] Dr. Lisbeth Ramirez Epithelial cells LM Ql (Urine sed) FEW Abnormal NONE SEEN /RARE [facility] Comment on above: Performed By: #### U ACSBLAISE, UMICRO #### [facility] [address] [place] [address] Dr. Lisbeth Ramirez MUCOUS NONE SEEN Normal NONE SEEN [facility] Comment on above: Performed By: #### U ACSBLAISE UMICRO #### [facility] [address] [place] [address] Dr. Lisbeth Ramirez RBC 2-5 Abnormal 0-[address] [facility] Comment on above: Performed By: #### U ACSBLAISE UMICRO #### [facility] [address] [place] [address] Dr. Lisbeth Ramirez WBC 0-2 Abnormal NONE SEEN [facility] Comment on above: Performed By: #### U ACSBLAISE, UMICRO #### [facility] [address] [place] [address] Dr. Lisbeth Ramirez XR knee LT 2Von 01-12-2022 XR knee LT 2V [facility] [place] [address] XRay Report Signed Patient: Richelle Pelaez MR#: [id number] : 1965 Acct:[id number] Age/Sex: 56 / F ADM Date: 01/12/22 [place] [facility] [place]: Type: [facility] Attending Dr: Heath Silva MD Ordering [...] Carney Jr., M.D.01/12/2022 4:14 PM Dictation Location: [place] [address] Transcribed By: [facility] 01/12/22 1614 Dictated By: Andrea Carney Jr, MD 01/12/22 1608 Signed By: 01/12/22 1614 Normal [facility] MG MAMM DIAGNOSTIC 3D MARGARITA CA Don 01-01-2022 MG MAMM DIAGNOSTIC 3D MARGARITA CAD Patient: RICHELLE PELAEZ Exam Date: 01/01/2022 : 1965 Gender:F Ordering : DR NORA LINDO M.D. Admission #: [id number] Family : Order #: [id number] CLICK HERE TO VIEW EXAM RADIOLOGY REPORT [...] breast cancer at age 75. LOCATION: [facility] BREAST COMPOSITION: Almost entirely fatty. [...] M.D. on 01/01/2022 at 15:42 Normal [address] [facility] TSHon 05-22-2019 TSH Qn 2.23 uIU/ml Normal 0.47-4.68 [facility] Comment on above: Performed By: #### 7 50, 800, 1000, 1005, 4500, 4520, 4575 #### [facility] Unless Otherwise Noted [address] [id number] / COLA #4724/CLIA # [id number] VITAMIN B12on 05-22-2019 Cobalamin (Vitamin B12) [Mass/Vol] 713.0 pg/mL Normal 239.0-931.0 [facility] Comment on above: Performed By: #### 7 50, 800, 1000, 1005, 4500, 4520, 4575 #### [facility] Unless Otherwise Noted [address] [id number] / [facility] #4724/CLIA # [id number] AFINION A1Con 05-19-2019 HbA1c (Bld) [Mass fraction] 5.6 G/DL Normal 4.5-6.0 [facility] Comment on above: Performed By: #### 7 50, 800, 1000, 1005, 4500, 4520, 4575 #### [facility] Unless Otherwise Noted [address] [place] [address] / COLA #4724/CLIA # [id number] Comprehensiveon 05-19-2019 Albumin [Mass/Vol] 4.4 g/dL Normal 3.5-5.0 [facility] Comment on above: Performed By: #### 7 50, 800, 1000, 1005, 4500, 4520, 4575 #### [facility] Unless Otherwise Noted [address] [place] [address] / COL[facility] #4724/CLIA # [id number] ALP [Catalytic activity/Vol] 98.0 U/L Normal 38.0-126.0 [facility] Comment on above: Performed By: #### 7 50, 800, 1000, 1005, 4500, 4520, 4575 #### [facility] Unless Otherwise Noted [address] [place] [address] / [facility]A #4724/CLIA # [id number] ALT [Catalytic activity/Vol] 16.0 U/L Normal 13.0-69.0 [facility] Comment on above: Performed By: #### 7 50, 800, 1000, 1005, 4500, 4520, 4575 #### [facility] Unless Otherwise Noted [address] [address] / COLA #4724/CLIA # [id number] Anion gap [Moles/Vol] 7.0 mmol/L Low 10.0-15.0 [facility] Comment on above: Performed By: #### 7 50, 800, 1000, 1005, 4500, 4520, 4575 #### [facility] Unless Otherwise Noted [address] [address] / COLA #4724/CLIA # [id number] AST [Catalytic activity/Vol] 39.0 U/L Normal 15.0-46.0 [facility] Comment on above: Performed By: #### 7 50, 800, 1000, 1005, 4500, 4520, 4575 #### [facility] Unless Otherwise Noted [address] [address] / COLA #4724/CLIA # [id number] Bilirubin Ql (U) 0.40 mg/dL Normal 0.20-1.30 [facility] Comment on above: Performed By: #### 7 50, 800, 1000, 1005, 4500, 4520, 4575 #### [facility] Unless Otherwise Noted [address] [address] / COLA #4724/CLIA # [id number] BUN/Cre Ratio 18.8 Ratio Normal 7.0-27.0 [facility] Comment on above: Performed By: #### 7 50, 800, 1000, 1005, 4500, 4520, 4575 #### [facility] Unless Otherwise Noted [address] [address] / COLA #4724/CLIA # [id number] Calcium [Mass/Vol] 9.6 mg/dL Normal 8.4-10.2 [facility] Comment on above: Performed By: #### 7 50, 800, 1000, 1005, 4500, 4520, 4575 #### [facility] Unless Otherwise Noted [address] [place] [address] / COLA #4724/CLIA # [id number] Chloride [Moles/Vol] 107.0 mmol/L Normal 98.0-107.0 [facility] Comment on above: Performed By: #### 7 50, 800, 1000, 1005, 4500, 4520, 4575 #### [facility] and Diabetes [facility] Unless Otherwise Noted [address] [place] [address] / COLA #4724/CLIA # [id number] CO2 [Moles/Vol] 28.0 mmol/L Normal 22.0-30.0 [facility] Comment on above: Performed By: #### 7 50, 800, 1000, 1005, 4500, 4520, 4575 #### [facility] and Diabetes [facility] Unless Otherwise Noted [address] [place] [address] / COLA #4724/CLIA # [id number] Creatinine [Mass/Vol] 0.8 mg/dL Normal 0.5-1.0 [facility] Comment on above: Performed By: #### 7 50, 800, 1000, 1005, 4500, 4520, 4575 #### Endocrine and Diabetes [facility] Unless Otherwise Noted [address] [address] / COLA #4724/CLIA # [id number] GFR/1.73 sq M predicted among blacks MDRD (S/P/Bld) [Vol rate/Area] 96.9 ml/m1.73 Normal [facility] Comment on above: Performed By: #### 7 50, 800, 1000, 1005, 4500, 4520, 4575 #### [facility] Unless Otherwise Noted [address] [place] [address] / COLA #4724/CLIA # [id number] GFR/1.73 sq M predicted among non-blacks MDRD (S/P/Bld) [Vol rate/Area] 80.1 ml/m1.73 Normal [facility] Comment on above: Performed By: #### 7 50, 800, 1000, 1005, 4500, 4520, 4575 #### [facility] Unless Otherwise Noted [address] [place] [address] / COLA #4724/CLIA # [id number] GFR/1.73 sq M predicted among non-blacks MDRD (S/P/Bld) [Vol rate/Area] 139.1 ml/m1.73 Normal [facility] Diabetes [facility] Comment on above: Performed By: #### 7 50, 800, 1000, 1005, 4500, 4520, 4575 #### [facility] Unless Otherwise Noted [address] [place] [address] / COLA #4724/CLIA # [id number] Glucose [Mass/Vol] 91.0 mg/dL Normal 74.0-106.0 [facility] Diabetes [facility] Comment on above: Performed By: #### 7 50, 800, 1000, 1005, 4500, 4520, 4575 #### [facility] Unless Otherwise Noted [address] [place] [address] / COLA #4724/CLIA # [id number] Potassium [Moles/Vol] 3.9 mmol/L Normal 3.5-5.1 [facility] Comment on above: Performed By: #### 7 50, 800, 1000, 1005, 4500, 4520, 4575 #### [facility] Unless Otherwise Noted [address] [place] [address] / COLA #4724/CLIA # [id number] Protein [Mass/Vol] 7.6 g/dL Normal 6.3-8.2 [facility] Comment on above: Performed By: #### 7 50, 800, 1000, 1005, 4500, 4520, 4575 #### [facility] Unless Otherwise Noted [address] [place] [address] / COLA #4724/CLIA # [id number] Sodium [Moles/Vol] 142.0 mmol/L Normal 137.0-145.0 [facility] Comment on above: Performed By: #### 7 50, 800, 1000, 1005, 4500, 4597, 4575 #### [facility] Unless Otherwise Noted [address] [place] [address] / COLA #4724/CLIA # [id number] Urea nitrogen [Mass/Vol] 15.0 mg/dL Normal 7.0-17.0 [facility] Comment on above: Performed By: #### 7 50, 800, 1000, 1005, 4500, 4520, 4575 #### [facility] Unless Otherwise Noted [address] [place] [address] / COLA #4724/CLIA # [id number] [facility] Free T4 [Mass/Vol] 1.10 ng/dL Normal 0.64-1.79 [facility] Comment on above: Performed By: #### 7 50, 800, 1000, 1005, 4500, 4520, 4575 #### [facility] Unless Otherwise Noted [address] [address] / COLA #4724/CLIA # [id number] Lipidson 05-19-2019 Cholesterol [Mass/Vol] 209.0 mg/dL High 0.0-199.0 [facility] Comment on above: Performed By: #### 7 50, 800, 1000, 1005, 4500, 4520, 4575 #### [facility] Unless Otherwise Noted [address] [address] / COLA #4724/CLIA # [id number] Cholesterol in HDL [Mass/Vol] 66.0 mg/dL High 40.0-60.0 [facility] Comment on above: Performed By: #### 7 50, 800, 1000, 1005, 4500, 4520, 4575 #### [facility] Unless Otherwise Noted [address] [address] / COLA #4724/CLIA # [id number] Cholesterol in LDL [Mass/Vol] 118.4 mg/dL High 0.0-100.0 [facility] Comment on above: Performed By: #### 7 50, 800, 1000, 1005, 4500, 4520, 4575 #### [facility] Unless Otherwise Noted [address] [address] / COLA #4724/CLIA # [id number] Cholesterol in VLDL [Mass/Vol] 24.6 mg/dL Normal [facility] Comment on above: Performed By: #### 7 50, 800, 1000, 1005, 4500, 4520, 4575 #### [facility] Unless Otherwise Noted [address] [address] / COLA #4724/CLIA # [id number] Cholesterol.total/C holesterol in HDL [Mass ratio] 3.2 {ratio} Normal [facility] Comment on above: Performed By: #### 7 50, 800, 1000, 1005, 4500, 4520, 4575 #### [facility] Unless Otherwise Noted [address] [address] / COLA #4724/CLIA # [id number] Triglyceride [Mass/Vol] 123.0 mg/dL Normal 0.0-150.0 [facility] Comment on above: Performed By: #### 7 50, 800, 1000, 1005, 4500, 4520, 4575 #### [facility] Unless Otherwise Noted [address] [address] / COLA #4724/CLIA # [id number] NEW MICROALBUMINon 9 Creatinine (U) [Mass/Vol] 128.3 mg/dL Normal [facility] Comment on above: Performed By: #### 7 50, 800, 1000, 1005, 4500, 4520, 4575 #### [facility] Unless Otherwise Noted [address] [address] / COLA #4724/CLIA # [id number] Microalbumin 37.0 mg/L High 0.0-30.0 [facility] Comment on above: Performed By: #### 7 50, 800, 1000, 1005, 4500, 4520, 4575 #### [facility] Unless Otherwise Noted [address] [address] / COLA #4724/CLIA # [id number] Urine A/C Ratio 28.8 mg/g Normal 0.0-30.0 [facility] Comment on above: Performed By: #### 7 50, 800, 1000, 1005, 4500, 4520, 4575 #### [facility] Unless Otherwise Noted [address] [place] [address] / COLA #4724/CLIA # [id number] Vital Signs Date Time Vital Sign Value Performing Clinician Facility 06-25-2025 16:12-0400 Body height 157.48 cm Chacha Ledbetter MD Work Phone: [facility] 06-25-2025 16:12-0400 Body mass index (BMI) [Ratio] 42.6 kg/m2 Chacha Ledbetter MD Work Phone: [facility] 06-25-2025 16:12-0400 Body weight 105.68 kg Chacha Ledbetter MD Work Phone: [facility] 06-25-2025 16:12-0400 Diastolic blood pressure 100 mm[Hg] Chacha Ledbetter MD Work Phone: [facility] 06-25-2025 16:12-0400 Heart rate 88 /min Chacha Ledbetter MD Work Phone: [facility] 06-25-2025 16:12-0400 Respiratory rate 18 /min Chacha Ledbetter MD Work Phone: [facility] 06-25-2025 16:12-0400 SaO2% (BldA) [Mass fraction] 99 % Chacha Ledbetter MD Work Phone: [facility] 06-25-2025 16:12-0400 Systolic blood pressure 126 mm[Hg] Chacha Ledbetter MD Work Phone: [facility] 12-29-2024 13:47-0500 Body mass index (BMI) [Ratio] 44.07 kg/m2 Faheem WAY Work Phone: [facility] [employer] 12-29-2024 13:47-0500 Body weight 109.32 kg Faheem Rock REGIONAL MAINTENANCE MANAGER-[employer]IL [employer]NER INSTALLER Work Phone: [facility] [employer] 12-29-2024 13:47-0500 Diastolic blood pressure 83 mm[Hg] Faheem Rock REGIONAL MAINTENANCE MANAGER-[employer]IL BURNER INSTALLER Work Phone: [facility] [employer] 12-29-2024 13:47-0500 Heart rate 91 /min Faheem Rock REGIONAL MAINTENANCE MANAGER-OIL BURNER INSTALLER Work Phone: [facility] 12-29-2024 13:47-0500 Systolic blood pressure 132 mm[Hg] Faheemlida Rock REGIONAL MAINTENANCE MANAGER-OIL BURNER INSTALLER Work Phone: [facility] 08-25-2024 12:39-0400 Body mass index (BMI) [Ratio] 43.48 kg/m2 Faheem Rock REGIONAL MAINTENANCE MANAGER-OIL BURNER INSTALLER Work Phone: [facility] 08-25-2024 12:39-0400 Body weight 107.86 kg Faheem Rock REGIONAL MAINTENANCE MANAGER-[employer] BURNER INSTALLER Work Phone: [facility] [employer] 08-25-2024 12:39-0400 Diastolic blood pressure 85 mm[Hg] Faheem Rock REGIONAL MAINTENANCE MANAGER-OIL BURNER INSTALLER Work Phone: [facility] 08-25-2024 12:39-0400 Heart rate 88 /min Faheem Rock REGIONAL MAINTENANCE MANAGER-OIL BURNER INSTALLER Work Phone: [facility] 08-25-2024 12:39-0400 Systolic blood pressure 128 mm[Hg] Faheem Rock REGIONAL MAINTENANCE MANAGER-OIL BURNER INSTALLER Work Phone: [facility] 07-04-2024 16:34-0400 Diastolic blood pressure 98 mm[Hg] Alma Yenifer DO Work Phone: [facility] 07-04-2024 16:34-0400 Heart rate 88 /min Alma Yenifer DO Work Phone: [facility] 07-04-2024 16:34-0400 SaO2% (BldA) [Mass fraction] 98 % Alma Street DO Work Phone: [facility] [employer] 07-04-2024 16:34-0400 Systolic blood pressure 146 mm[Hg] Alma Street DO Work Phone: [facility] 03-03-2024 12:05-0400 Body mass index (BMI) [Ratio] 42.53 kg/m2 [facility] 12:05-0400 Body weight 105.51 kg Nadia Sotomayor MD Work Phone: [facility] 03-03-2024 12:05-0400 Diastolic blood pressure 85 mm[Hg] Nad[facility]or [facility] 03-03-2024 12:05-0400 Heart rate 73 /min Nadia [facility]or [facility] 03-03-2024 12:05-0400 Systolic blood pressure 123 mm[Hg] Nadia Sotomayor MD Work Phone: [facility] 01-12-2022 16:00-0500 Body height 157.48 cm Heath Olexa Other [facility] Other 01-12-2022 16:00-0500 Body mass index (BMI) [Ratio] 45.17 kg/m2 Heath Olexa Other [facility] Other 01-12-2022 16:00-0500 Body weight 112.04 kg Heath Olexa Other [facility] Other 11-04-2021 10:00-0500 Body height 157.48 cm Heath Olexa Other [facility] Other 11-04-2021 10:00-0500 Body mass index (BMI) [Ratio] 46.82 kg/m2 Heath Olexa Other [facility] Other 11-04-2021 10:00-0500 Body weight 116.12 kg Heath Olexa Other [facility] Other 10-14-2021 14:30-0500 Body height 157.48 cm Heath Olexa Other [facility] Other 10-14-2021 14:30-0500 Body mass index (BMI) [Ratio] 46.16 kg/m2 Heath Olexa Other [facility] Other 10-14-2021 14:30-0500 Body weight 114.49 kg Heath Heckxa Other [facility] Other 05-19-2019 18:58-0400 Body weight 107.1 Kg [facility] Comment on above: Performed By: #### 750, 800, 1000, 1005, 4500, 4520, 4575 #### [facility] Unless Otherwise Noted [address] [place] [address] / COLA #4724/IONAIA # [id number] Encounters Encounter Date Encounter Type Care Provider Facility Start: 07-30-2025 End: 07-30-2025 Patient encounter procedure Josue Hinojosa DPM Work Phone: [facility] Comment on above: Corns and callositie s (Primary Dx); Pain in both feet; Onychomycosis; Type 2 diabetes mellitus without complication, without long-term current use of insulin ([facility]) Start: 07-30-2025 End: 07-30-2025 ambulatory JOSUE HINOJOSA Not Available Start: 07-30-2025 End: 07-30-2025 Bamboo flowsheet Josue Hinojosa DPM Work Phone: [facility] Start: 07-30-2025 End: 07-30-2025 Bamboo flowsheet Josue Hinojosa DPM Work Phone: [facility] Start: 06-25-2025 End: 06-25-2025 ambulatory Chacha Ledbetter MD Work Phone: [facility] Work Phone: Start: 06-25-2025 End: 06-25-20[address] encounter [address] [facility] Work Phone: Start: 06-19-2025 End: 06-19-2025 Refill Leilani Purcell RN OSTOMY [facility] Adult Endocrinology, A Department of [facility] Comment on above: Postablative hypothy roidism Start: 04-19-2025 End: 04-19-2025 ambulatory JOSUE HINOJOSA Not Available Start: 04-19-2025 End: 04-19-2025 Patient encounter procedure Josue Hinojosa DPM Work Phone: [facility] Comment on above: Corns and callositie s (Primary Dx); Pain in both feet; Type 2 diabetes mellitus without complication, without long-term current use of insulin (HCC); Onychomycosis Start: 04-19-2025 End: 04-19-2025 Bamboo flowsheet Josue Hinojosa DPM Work Phone: [facility] Start: 04-19-2025 End: 04-19-2025 Bamboo flowsheet Josue Hinojosa DPM Work Phone: [facility] Start: 03-18-2025 End: 03-19-2025 Refill Faheem Rock REGIONAL MAINTENANCE MANAGER-[employer]NER INSTALLER Work Phone: [facility] Adult [facility] Comment on above: Postablative hypothy roidism Start: 02-26-2025 End: 02-26-2025 Office outpatient visit 15 minutes Josue Hinojosa DPM Work Phone: [facility] Comment on above: Osteoarthritis of mi dtarsal joint of left foot (Primary Dx); Osteoarthritis of right ankle and foot; Pain in both feet; Tailor's bunion of right foot Start: 02-26-2025 End: 02-26-2025 ambulatory JOSUE HINOJOSA Not Available Start: 02-26-2025 End: 02-26-2025 Bamboo flowsheet Josue Hinojosa DPM Work Phone: [facility] Start: 02-26-2025 End: 02-26-2025 Bamboo flowsheet Josue Hinojosa DPM Work Phone: [facility] Start: 02-05-2025 End: 02-06-2025 ambulatory [facility] Start: 01-25-2025 End: 01-25-2025 ambulatory [facility] Start: 01-10-2025 End: 01-10-2025 ambulatory JOSUE HINOJOSA Not Available Start: 01-10-2025 End: 01-10-2025 Patient encounter procedure Josue Hinojosa DPM Work Phone: [facility] Comment on above: Onychomycosis (Prima ry Dx); Corns and callosities; Pain in both feet; Type 2 diabetes mellitus without complication, without long-term current use of insulin ([facility]) Start: 01-10-2025 End: 01-10-2025 Bamboo flowsheet Josue Hinojosa DPM Work Phone: [facility] Start: 01-10-2025 End: 01-10-2025 Bamboo flowsheet Josue Hinojosa DPM Work Phone: [facility] Start: 12-29-2024 End: 12-29-2024 Office outpatient visit 25 minutes Faheem Rock APRN-OIL BURNER INSTALLER Work Phone: [facility] Adult Endocrinology, A Department of [facility] Comment on above: Type 2 diabetes lisa itus without complication, without long- term current use of insulin ([facility]) (Primary Dx); Postablative hypothyroidism Start: 12-29-2024 End: 12-29-2024 ambulatory FAHEEM ROCK [facility] Start: 12-15-2024 End: 12-15-2024 ambulatory [facility] Start: 11-20-2024 End: 11-21-2024 Telephone encounter Peri VALDEZ Work Phone: [facility] Comment on above: dentist Start: 11-02-2024 End: 11-02-2024 Bamboo flowsheet Josue Hinojosa DPM Work Phone: [facility] Start: 11-02-2024 End: 11-02-2024 Bamboo flowsheet Josue Hinojosa DPM Work Phone: [facility] Start: 11-02-2024 End: 11-02-2024 Postop follow up visit related to original px Josue Hinojosa DPM Work Phone: [facility] Comment on above: Surgery follow-up ex amination (Primary Dx); Exostosis of left foot; Osteoarthritis of midtarsal joint of left foot; Osteoarthritis of right ankle and foot; Onychomycosis; Corns and callosities; Pain in both feet; Type 2 diabetes mellitus without complication, without long-term current use of insulin ([facility]) Start: 11-02-2024 End: 11-02-2024 ambulatory JOSUE HINOJOSA Not Available Start: 10-09-2024 End: 10-09-2024 ambulatory JOSUE HINOJOSA Not Available Start: 10-09-2024 End: 10-09-2024 Postop follow up visit related to original px Josue Hinojosa DPM Work Phone: [facility] Comment on above: Surgery follow-up ex amination (Primary Dx); Exostosis of left foot; Left foot pain Start: 10-09-2024 End: 10-09-2024 Bamboo flowsheet Josue Hinojosa DPM Work Phone: [facility] Start: 10-09-2024 End: 10-09-2024 Bamboo flowsheet Josue H Ashish DPM Work Phone: [facility] Start: 09-19-2024 End: 09-19-2024 Refill Faheem Rock REGIONAL MAINTENANCE MANAGER-OIL BURNER INSTALLER Work Phone: [facility] Comment on above: Postablative hypothy roidism Start: 09-04-2024 End: 09-04-2024 ambulatory JOSUE Ngo HINOJOSA Not Available Start: 09-04-2024 End: 09-04-2024 Postop follow up visit related to original px Josue Ngo Hionjosa DPM Work Phone: [facility] Comment on above: Surgery follow-up ex amination (Primary Dx); Exostosis of left foot; Left foot pain Start: 09-04-2024 End: 09-04-2024 Bamboo flowsheet Josue Huber Hinojosa DPM Work Phone: [facility] Start: 09-04-2024 End: 09-04-2024 Bamboo flowsheet Josue H Hinojosa DPM Work Phone: [facility] Start: 08-25-2024 End: 08-25-2024 ambulatory [facility] Start: 08-25-2024 End: 08-25-2024 Office outpatient visit 25 minutes Faheem Rock REGIONAL MAINTENANCE MANAGER-OIL BURNER INSTALLER Work Phone: [facility] Comment on above: Type 2 diabetes lisa itus without complication, without long- term current use of insulin ([facility]) (Primary Dx); Postablative hypothyroidism Start: 08-25-2024 End: 08-25-2024 ambulatory FAHEEM ROCK [facility] Start: 08-21-2024 End: 08-21-2024 Postop follow up visit related to original px Josue Hinojosa DPM Work Phone: [facility] Comment on above: Surgery follow-up ex amination (Primary Dx); Exostosis of left foot; Left foot pain Start: 08-21-2024 End: 08-21-2024 ambulatory JOSUE HINOJOSA Not Available Start: 08-21-2024 End: 08-21-2024 Bamboo flowsheet Josue Hinojosa DPM Work Phone: [facility] Start: 08-21-2024 End: 08-21-2024 Bamboo flowsheet Josue Hinojosa DPM Work Phone: [facility] Start: 08-20-2024 End: 08-21-2024 Refill Faheem Rock REGIONAL MAINTENANCE MANAGER-OIL BURNER INSTALLER Work Phone: [facility] Comment on above: Type 2 diabetes lisa itus without complication, without long- term current use of insulin ([facility]) Start: 08-16-2024 End: 08-16-2024 Office outpatient visit 15 minutes Peri VALDEZ Work Phone: [facility] Comment on above: Acute pain of left k nee (Primary Dx); History of left knee replacement Start: 08-16-2024 End: 08-16-2024 ambulatory PERI NIELSEN Not Available Start: 08-16-2024 End: 08-16-2024 Bamboo flowsheet Peri VALDEZ Work Phone: [facility] Start: 08-16-2024 End: 08-16-2024 Bamboo flowsheet Peri VALDEZ Work Phone: [facility] Start: 08-14-2024 End: 08-14-2024 Postop follow up visit related to original px Josue Hinojosa DPM Work Phone: [facility] Comment on above: Surgery follow-up ex amination (Primary Dx); Exostosis of left foot; Left foot pain Start: 08-14-2024 End: 08-14-2024 ambulatory JOSUE HINOJOSA Not Available Start: 08-14-2024 End: 08-14-2024 Bamboo flowsheet Josue Hinojosa DPM Work Phone: [facility] Start: 08-14-2024 End: 08-14-2024 Bamboo flowsheet Josue Hinojosa DPM Work Phone: [facility] Start: 08-10-2024 End: 08-10-2024 Bamboo flowsheet Josue Hinojosa DPM Work Phone: [facility] Start: 08-10-2024 End: 08-10-2024 Bamboo flowsheet Josue Hinojosa DPM Work Phone: [facility] Start: 08-10-2024 End: 08-10-2024 ambulatory JOSUE HINOJOSA Not Available Start: 08-10-2024 End: 08-10-2024 Office outpatient visit 15 minutes Josue Hinojosa DPM Work Phone: [facility] Comment on above: Exostosis of left fo ot (Primary Dx); Left foot pain; Osteoarthritis of midtarsal joint of left foot; Osteoarthritis of right ankle and foot Start: 07-24-2024 End: 07-24-2024 Patient encounter procedure Josue Hinojosa DPM Work Phone: [facility] Comment on above: Onychomycosis (Prima ry Dx); Pain in both feet; Corns and callosities Start: 07-24-2024 End: 07-24-2024 Bamboo flowsheet Josue Hinojosa DPM Work Phone: [facility] Start: 07-24-2024 End: 07-24-2024 Bamboo flowsheet Josue Hinojosa DPM Work Phone: [facility] Start: 07-04-2024 End: 07-04-2024 Office outpatient visit [address] DO Work Phone: [facility] Comment on above: Insomnia, unspecifie d type; Chronic migraine without aura without status migrainosus, not intractable (CMS/HCC); Tension headache; Primary insomnia Start: 07-04-2024 End: 07-04-[address] DO Work Phone: [facility] Start: 07-04-2024 End: 07-04-[address] DO Work Phone: [facility] Start: 03-03-2024 End: 03-03-2024 ambulatory NADIA SOTOMAYOR [facility] Start: 03-03-2024 End: 03-03-2024 Office outpatient visit 25 minutes Nadia Sotomayor MD Work Phone: [facility] Comment on above: Type 2 diabetes lisa itus without complication, without long- term current use of insulin ([facility]) (Primary Dx); Postablative hypothyroidism Start: 11-26-2023 End: 11-26-2023 Patient encounter procedure Josue Hinojosa DPM Work Phone: [facility] Comment on above: Primary osteoarthrit is, left ankle and foot (Primary Dx); Primary osteoarthritis, right ankle and foot Start: 11-15-2023 Orders Only Faheem willson REGIONAL MAINTENANCE MANAGER-OIL BURNER INSTALLER Work Phone: [facility] Comment on above: Postablative hypothy roidism (Primary Dx) Start: 11-12-2023 End: 11-13-2023 ambulatory FAHEEM ROCK [facility] Start: 04-06-2023 Telephone encounter Adam Lindo MD Work Phone: [facility] Comment on above: Patient Question Start: 12-21-2022 End: 12-22-[address] NORA LINDO Facility:[facility] Start: 09-28-2022 End: 09-28-[address] CHACHA LEDBETTER Facility:[facility] Start: 09-02-2022 Encounter for genera l adult medical examination without abnormal findings DR CHACHA LEDBETTER [facility] Start: 08-28-2022 End: 08-29-[address] CHACHA LEDBETTER Facility:[facility] Start: 08-28-2022 End: 08-29-2022 Encounter for general adult medical examination without abnormal findings DR CHACHA LEDBETTER Facility:[facility] Start: 06-14-2022 Encounter for other preprocedural examination DR BOWERS [facility] Start: 06-10-2022 End: 06-11-[address] CHACHA LEDBETTER Facility:[facility] Start: 06-10-2022 End: 06-11-2022 Encounter for other preprocedural examination DR CHACHA LEDBETTER Facility:[facility] Start: 02-03-2022 End: 02-03-2022 ambulatory Heath Olexa Other [facility] Other Start: 02-03-2022 Office outpatient vi sit 15 minutes Heath Olexa [facility] Start: 01-12-2022 End: 01-12-2022 ambulatory Heath Olexa Other [facility] Other Start: 01-12-2022 Office outpatient vi sit 15 minutes Ehath Olexa [facility] Start: 01-01-2022 End: 01-02-[address] CHACHA LEDBETTER Facility:[facility] Start: 11-04-2021 End: 11-04-2021 ambulatory Heath Olexa Other [facility] Other Start: 11-04-2021 Office outpatient vi sit 15 minutes Heath Olexa [facility] [facility] Start: 10-14-2021 End: 10-14-2021 ambulatory Heath Olexa Other [facility] Other Start: 10-14-2021 Office outpatient vi sit 15 minutes Heath Olexa [facility] [place] Start: 09-11-2021 End: 09-11-2021 ambulatory Heath Olexa Other [facility] Other Start: 09-11-2021 Telephone encounter Heath Olexa [facility] Start: 10-24-2018 End: 10-25-2018 Patient encounter procedure DEFAULT PHYSICIAN Facility:[facility] Start: 10-04-2018 Patient encounter procedure Faheem Rock REGIONAL MAINTENANCE MANAGER-OIL BURNER INSTALLER Work Phone: [employer] [facility] Procedures Date Procedure Procedure Detail Performing Clinician Start: 12-29-2024 End: 12-29-2024 Gluc bld gluc mntr dev cleared fda spec home use Faheem Schroeder Yuriy REGIONAL MAINTENANCE MANAGER-OIL BURNER INSTALLER Work Phone: Start: 08-25-2024 Gluc bld gluc mntr dev cleared fda spec home use Faheemlida Rock REGIONAL MAINTENANCE MANAGER-OIL BURNER INSTALLER Work Phone: Start: 08-25-2024 Microalbumin [Mass/volume] in Urine by Test strip Faheem Rock REGIONAL MAINTENANCE MANAGER-OIL BURNER INSTALLER Work Phone: Start: 08-17-2024 Radex foot complete minimum 3 views Josue Hinojosa DPM Work Phone: Start: 08-10-2024 Radex foot complete minimum 3 views Josue Hinojosa DPM Work Phone: Start: 03-03-2024 End: 03-03-2024 Gluc bld gluc mntr dev cleared fda spec home use Nadia Sotomayor MD Work Phone: Start: 11-12-2023 Microalbumin [Mass/volume] in Urine by Test strip Faheem Rock REGIONAL MAINTENANCE MANAGER-OIL BURNER INSTALLER Work Phone: Start: 11-15-2018 Mammography Josue Hinojosa DPM Work Phone: History of operative procedure on knee History of left knee replacement Peri VALDEZ Work Phone: History of operative procedure on knee History of left knee replacement Peri VALDEZ Work Phone: Plan of Treatment Date Care Activity Detail Author Start: 12-29-2025 Adult BMI Screening [facility] Start: 12-29-2025 Diabetic foot examination [facility] Start: 12-29-2025 Statin Use: Diabetic Statin Use: Juanis betic [facility] Start: 12-29-2025 Tobacco Screening [facility] Start: 11-05-2025 End: 11-05-2025 Patient encounter procedure 11/05/2025 4:30 PM EST Procedure Visit [facility] [address] [place] [address] Josue Hinojosa DPM [address] [place] [address] [facility] Start: 09-21-2025 End: 09-21-2025 Patient encounter procedure 09/21/2025 11:30 AM EST Office Visit [facility] [address] [facility] [place] [address] Peri Nielsen PA [address] [place] [address] [facility] Start: 09-17-2025 End: 09-17-2025 Patient encounter procedure 09/17/2025 4:15 PM EST Office Visit [facility] [address] [place] [address] Josue Hinojosa DPM [address] [place] [address] [facility] Start: 09-04-2025 End: 09-04-2025 Patient encounter procedure 09/04/2025 4:45 PM EDT Office Visit [facility] [address] [place] [address] Josue Hinojosa DPM [address] [place] [address] [facility] Start: 08-25-2025 Adult BMI Screening Adult BMI Screen ing [facility] Start: 08-25-2025 Diabetic foot examination Diabetic Foot Exam [facility] Start: 08-25-2025 Tobacco Screening Tobacco Screening [facility] Start: 08-25-2025 Urine screening for protein Urine Microalbumin [facility] Start: 08-17-2025 End: 08-17-2025 Patient encounter procedure 08/17/2025 11:30 AM EDT Office Visit [facility] [address] [place] [phone] Peri Nielsen PA [address] [facility] [address] [place] [address] [facility] Start: 07-30-2025 End: 07-30-2025 Patient encounter procedure 07/30/2025 4:00 PM EDT Procedure Visit [facility] [address] [facility] [address] [place] [address] Josue Hinojosa DPM [address] [facility] [address] [place] [address] Arrived [facility] Comment on above: Arrived Start: 07-09-2025 Influenza vaccination N [facility] Start: 06-11-2025 End: 06-11-2025 Patient encounter procedure 06/11/2025 3:30 PM EDT Office Visit [facility] Adult Endocrinology, A Department of [facility] [address] [facility] [address] [place] [address] Nadia Sotomayor MD [address] [facility] [address] [place] [address] [facility] Adult Endocrinology, A Department of [facility] Start: 04-27-2025 End: 04-27-2025 Patient encounter procedure [facility] Start: 04-25-2025 End: 04-25-2025 Patient encounter procedure 04/25/2025 4:30 PM EDT Office Visit [facility] [address] [facility] [address] [place] [phone], [address] [place] [address] [facility] Start: 04-19-2025 End: 04-19-2025 Patient encounter procedure 04/19/2025 3:45 PM EDT Procedure Visit [facility] [address] [place] [phone] Josue Hinojosa, DPM [address] [place] [address] [facility] Start: 03-03-2025 Adult BMI Screening Adult BMI Screen ing [facility] Start: 03-03-2025 Tobacco Screening Tobacco Screening [facility] Start: 02-26-2025 End: 02-26-2025 Patient encounter procedure 02/26/2025 4:00 PM EDT Office Visit [facility] [address] [place] [phone] Josue Hinojosa, DPM [address] [place] [address] Arrived [facility] Comment on above: Arrived Start: 01-11-2025 End: 01-11-2025 Patient encounter procedure 01/11/2025 3:45 PM EST Procedure Visit [facility] [address] [place] [address] Josue Hinojosa, DPM [address] [place] [address] [facility] Start: 12-29-2024 End: 12-29-2024 Patient encounter procedure 12/29/2024 2:00 PM EST Office Visit [facility] [address] [place] [phone] Faheem Rock, REGIONAL MAINTENANCE MANAGER-OIL BURNER INSTALLER [address] [place] [address] [facility] Start: 11-12-2024 Urine screening for protein Urine Microalbumin [facility] Start: 11-02-2024 End: 11-02-2024 Patient encounter procedure 11/02/2024 11:30 AM EST Office Visit [facility] [address] [place] [address] Josue Hinojosa, DPM [address] [place] [address] Arrived [facility] Comment on above: Arrived Start: 10-25-2024 End: 10-25-2024 Patient encounter procedure 10/25/2024 4:15 PM EST Procedure Visit [facility] [address] [place] [address] Josue Hinojosa, DPM [address] [place] [address] [facility] Start: 09-27-2024 End: 09-27-2024 Patient encounter procedure 09/27/2024 4:00 PM EST Office Visit [facility] [address] [place] [address] Josue Hinojosa, DPM [address] [place] [address] [facility] Start: 09-12-2024 End: 09-12-2024 Patient encounter procedure 09/12/2024 5:45 PM EST Office [facility] [address] [place] [phone] [address] DO [address] [place] [address] [facility] Start: 09-04-2024 End: 09-04-2024 Patient encounter procedure 09/04/2024 4:00 PM EDT Office Visit [facility] [address] [place] [address] Josue Hinojosa, DPM [address] [place] [address] [facility] Start: 09-03-2024 Adult BMI Screening Adult BMI Screen ing [facility] Start: 09-03-2024 Diabetic foot examination Diabetic Foot Exam [facility] Start: 09-03-2024 Tobacco Screening Tobacco Screening [facility] Start: 08-28-2024 End: 08-28-2024 Patient encounter procedure 08/28/2024 4:00 PM EDT Office Visit [facility] [address] [place] [address] Josue Hinojosa, DPM [address] [place] [address] [facility] Start: 08-25-2024 End: 08-25-2024 Patient encounter procedure 08/25/2024 1:30 PM EDT Office Visit [facility] [address] [place] [address] Faheem Rock, REGIONAL MAINTENANCE MANAGER-OIL BURNER INSTALLER [address] [place] [address] [facility] Start: 08-21-2024 End: [...] [address] [place] [address] [facility] Start: 08-10-2024 End: 08-10-2024 Patient encounter procedure 08/10/2024 9:45 AM EDT Office Visit [facility] [address] [place] [address] Josue Hinojosa, DPM [address] [place] [address] [facility] Start: 07-24-2024 End: 07-24-2024 Patient encounter procedure 07/24/2024 4:15 PM EDT Procedure Visit [facility] [address] [place] [address] Josue Hinojosa, DPM [address] [place] [address] [facility] Start: 07-09-2024 COVID-19 Vaccine ( season) COVID-19 Vaccine ( season) [facility] Start: 07-09-2024 COVID-19 Vaccine ( season) COVID-19 Vaccine ( season) [facility] Start: 07-09-2024 Influenza vaccination N [facility] Start: 07-04-2024 End: 07-04-2024 Patient encounter procedure 07/04/2024 4:30 PM EDT Office Visit [facility] [place] [facility] [address] [place] [address] DO [address] [place] [address] Arrived [facility] [place] [facility] Comment on above: Arrived Start: 07-03-2024 End: 07-03-2024 Patient encounter procedure 07/03/2024 3:00 PM EDT Office Visit [facility] [address] [facility] [address] [place] [address] Peri Nielsen PA [address] [place] [address] [facility] Start: 03-03-2024 End: 03-03-2024 Patient encounter procedure 03/03/2024 11:45 AM EDT Office Visit [facility] [address] [place] [address] Nadia Sotomayor MD [address] [place] [address] [facility] Start: 01-26-2024 End: 01-26-2024 Patient encounter procedure 01/26/2024 4:15 PM EDT Procedure Visit [facility] [address] [place] [address] Josue Hinojosa DPM [address] [place] [address] [facility] Start: 01-10-2024 End: 11-15-2024 Thyroid profile includes TSH FT4 Thyroid profile includes TSH FT4 Lab Routine Postablative hypothyroidism Expected: 01/10/2024 (Approximate), Expires: 11/15/2024 [facility] Work Phone: Comment on above: Expected: 01/10/2024 (Approximate), Expires: 11/15/2024 Start: 07-09-2023 COVID-19 Vaccine ( season) COVID-19 Vaccine ( season) [facility] Start: 07-09-2023 Influenza vaccination C [facility] Start: 05-05-2023 Screening for malign ant neoplasm of cervix [facility] Start: 01-01-2023 DEPRESSION ASSESSMENT DEPRESSION ASS ESSMENT [facility] Start: 01-16-2022 COVID-19 VACCINE (4 - Booster for Pfizer series) COVID-19 VACCINE (4 - Booster for Pfizer series) [facility] Start: 10-04-2021 DIABETES SCREEN DIABETES SCREEN [facility] Start: 11-15-2019 Screening for malign ant neoplasm of breast Mammogram [facility] Start: 2017 SHINGRIX VACCINE (1 of 2) SHINGRIX VACCINE (1 of 2) [facility] Start: 2012 COLOGUARD (FIT-DNA) COLOGUARD (FIT-D NA) [facility] Start: 2012 Colonoscopy COLONOSCOPY [facility] Start: 2012 COLORECTAL CANCER SCREENING COLORECTAL CANCER SCREENING [facility] Start: [address] COLONOGRAPHY [facility] Start: 2012 FECAL OCCULT BLOOD FECAL OCCULT BLOO D [facility] Start: 2012 LIPID SCREEN LIPID SCREEN [facility] Start: 2012 SIGMOIDOSCOPY SIGMOIDOSCOPY [facility] Start: 2007 Mammography MAMMOGRAM [facility] Start: 1997 HPV TESTING HPV TESTING [facility] Start: 1997 Screening for malign ant neoplasm of cervix [facility] Start: 1988 PAP TESTING PAP TESTING [facility] Start: 1988 Screening for malign ant neoplasm of cervix Pap Smear [facility] Start: 1986 Administration of varicella zoster vaccine Zoster (Shingles) Vaccine (1 of 2) [facility] Start: 1986 DTaP,Tdap and Td Vaccines (1 - Tdap) DTaP,Tdap and Td Vaccines (1 - Tdap) [facility] Start: 1986 Urine microalbumin profile DTAP,TDAP,TD (1 - Tdap) [facility] Start: 1985 HEPATITIS C SCREENING HEPATITIS C SC REENING [facility] Start: 1985 HIV SCREENING HIV SCREENING [facility] Start: 1979 Depression Screening Depression Scre ening [facility] Start: 1967 Glaucoma screening Diabetic Op hthalmology Exam [facility] Start: 1967 HEPATITIS B (1 of 3 - 3-dose series) HEPATITIS B (1 of 3 - 3-dose series) [facility] Start: 1967 Screening for malign ant neoplasm of colon [facility] End: 08-25-2025 Comprehensive metabolic 2000 panel - Serum or Plasma Comprehensive metabolic panel Lab Routine Type 2 diabetes mellitus without complication, without long-term current use of insulin ([facility]) 1 Occurrences starting 08/25/2024 until 08/25/2025 [employer] Work Phone: Comment on above: 1 Occurrences starti ng 08/25/2024 until 08/25/2025 End: 08-25-2025 Cyanocobalamin vitamin b-12 Vitamin B12 Lab Routine Type 2 diabetes mellitus without complication, without long-term current use of insulin ([facility]) 1 Occurrences starting 08/25/2024 until 08/25/2025 [facility] on above: 1 Occurrences starti ng 08/25/2024 until 08/25/2025 End: 08-25-2025 Lipid 1996 panel - Serum or Plasma Lipid profile Lab Routine Type 2 diabetes mellitus without complication, without long-term current use of insulin ([facility]) 1 Occurrences starting 08/25/2024 until 08/25/2025 [facility] Comment on above: 1 Occurrences starti ng 08/25/2024 until 08/25/2025 End: 08-25-2025 Microalbumin - Albumin: Creatinine Urine Ratio Microalbumin - Albumin: Creatinine Urine Ratio Lab Routine Type 2 diabetes mellitus without complication, without long-term current use of insulin ([facility]) 1 Occurrences starting 08/25/2024 until 08/25/2025 [facility] Comment on above: 1 Occurrences starti ng 08/25/2024 until 08/25/2025 End: 08-25-2025 Thyroid profile includes TSH FT4 Thyroid profile includes TSH FT4 Lab Routine Postablative hypothyroidism 1 Occurrences starting 08/25/2024 until 08/25/2025 [facility] Comment on above: 1 Occurrences starti ng 08/25/2024 until 08/25/2025 XR Knee - left 1 or 2 Views XR knee 1 or 2 views left Imaging Routine Acute pain of left knee 08/16/2024 3:04 PM EDT [facility] [employer] Work Phone: Immunizations Immunization Date Immunization Notes Care Provider Fa cility NEGATED: Highlighted row has not occurred!10-21-2018 influenza, injectable, quadrivalent, preservative free Faheem Yuriy REGIONAL MAINTENANCE MANAGER-OIL BURNER INSTALLER Work Phone: [facility] Comment on above: Deferred: Patient Re fused Payers Date Payer Category Payer Managed Care Other (unspecified) [employer] [id number] 2022 Private Health Insurance [id number] 2020 Unknown 1967 Unknown [id number] 2.16.840.1.597593.3.579. 2.647 1967 Unknown [id number] 2.16.840.1.617714.3.579. 2.593 1967 Unknown [id number] 2.16.840.1.259929.3.579. 2.593 1967 Unknown [id number] 2.16.840.1.489824.3.579. 2.593 1967 Unknown [id number] 2.16.840.1.673140.3.579. 2.593 1967 Unknown [id number] 2.16.840.1.214140.3.579. 2.593 1967 Unknown [id number] 2.16.840.1.029622.3.579. 2.1286 1967 Unknown [id number] 2.16.840.1.114452.3.579. 2.1285 1967 Unknown [id number] 2.16.840.1.496448.3.579. 2.1285 1967 Unknown [id number] 2.16.840.1.109133.3.579. 2.1285 1967 Unknown [id number] 2.16.840.1.426068.3.579. 2.1285 1967 Unknown [id number] 2.16.840.1.770501.3.579. 2.1285 1967 Unknown [id number] 2.16.840.1.449285.3.579. 2.1258 1967 Unknown [id number]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 Specialty Start Date End Date Chacha Ledbetter MD [address] [facility] [place] [address] PCP - General Family Medicine 04/27/[address] DO [address] [place] [address] Referring Physician Neurology 01/04/24 Proof Carrier Relationship Specialty Start Date End Date Chacha Ledbetter MD [address] [facility] [place] [address] PCP - General Family Medicine 04/27/[address] DO [address] [place] [address] Referring Physician Neurology 01/04/24 Proof Carrier Relationship Specialty Start Date End Date Chacha Ledbetter MD [address] [facility] [place] [address] PCP - General Family Medicine 04/27/[address] DO [address] [place] [address] Referring Physician Neurology 01/04/24 Proof Carrier Relationship Specialty Start Date End Date Chacha Ledbetter MD PCP - General Family Medicine 10/21/22 Proof Carrier Relationship Specialty Start Date End Date Chacha Ledbetter MD [address] [facility] [place] [address] PCP - General Family Medicine 04/27/[address] DO [address] [place] [address] Referring Physician Neurology 01/04/24 Proof Carrier Relationship Specialty Start Date End Date Chacha Ledbetter MD [address] [facility] [place] [address] PCP - General Family Medicine 04/27/[address] DO [address] [place] [address] Referring Physician Neurology 01/04/24 Proof Carrier Relationship Specialty Start Date End Date Chacha Ledbetter MD [address] [facility] [place] [address] PCP - General Family Medicine 04/27/[address] DO [address] [place] [address] Referring Physician Neurology 01/04/24 Proof Carrier Relationship Specialty Start Date End Date Chacha Ledbetter MD [address] [facility] [place] [address] PCP - General Family Medicine 04/27/[address] DO [address] [place] [address] Referring Physician Neurology 01/04/24 Proof Carrier Relationship Specialty Start Date End Date Chacha Ledbetter MD [facility] [place] [address] PCP - General Family Medicine 04/27/[address] DO [address] [place] [address] Referring Physician Neurology 01/04/24 Proof Carrier Relationship Specialty Start Date End Date Chacha Ledbetter MD [address] [place] [address] PCP - General Family Medicine 10/21/22 Proof Carrier Relationship Specialty Start Date End Date Chacha Ledbetter MD [address] [place] [address] PCP - General Family Medicine 10/21/22 Proof Carrier Relationship Specialty Start Date End Date Chacha Ledbetter MD PCP - General Family Medicine 10/21/22 Proof Carrier Relationship Specialty Start Date End Date Chacha Ledbetter MD PCP - General Family Medicine 10/21/22 Proof Carrier Relationship Specialty Start Date End Date Chacha Ledbetter MD PCP - General Family Medicine 10/21/22 Proof Carrier Relationship Specialty Start Date End Date Chacha Ledbetter MD [address] [facility] [place] [address] PCP - General Family Medicine 04/27/[address] DO [address] [place] [address] Referring Physician Neurology 01/04/24 Proof Carrier Relationship Specialty Start Date End Date Chacha Ledbetter MD [address] [facility] [place] [address] PCP - General Family Medicine 04/27/[address] DO [address] [place] [address] Referring Physician Neurology 01/04/24 Proof Carrier Relationship Specialty Start Date End Date Chacha Ledbetter MD [address] [facility] [place] [address] PCP - General Family Medicine 04/13/[address] DO [address] [place] [address] Referring Physician Neurology 01/04/24 Proof Carrier Relationship Specialty Start Date End Date Chacha Ledbetter MD [address] [place] [address] PCP - General Family Medicine 04/13/[address] DO [address] [place] [address] Referring Physician Neurology 01/04/24 Team Status: Active Member Role Status Dates Chacha Ledbetter MD Primary Care Provider Active Team Status: Inactive Member Role Status Dates Chacha Ledbetter MD Primary Care Provider Active Start: June 25, 2025 End: June 25, [address] DO Attending Provider Active Sta rt: June 25, 2025 End: June 25, 2025 Proof Carrier Relationship Specialty Start Date End Date Chacha Ledbetter MD [address] [place] [address] PCP - General Family Medicine 04/13/[address] DO [address] [place] [address] Referring Physician Neurology 01/04/24 Proof Carrier Relationship Specialty Start Date End Date Chacha Ledbetter MD [address] [place] [address] PCP - General Family Medicine 04/13/[address] DO [address] [place] [address] Referring Physician Neurology 01/04/24 Goals (unrecognized section and content) Goals may be documented in a n alternate section FOR RECORDS PERTAINING TO PATIENTS WHO ARE [...] BE BASED ON THE PRIMARY CLINICAL RECORDS. [employer] provides no warranty or guarantee of the accuracy or completeness of information in this document.
[2025-08-16 10:15] LABS: Alanine Aminotransferase 20 U/L (14-59); Aspartate Amino Transferase 22 U/L (15-37); Cholesterol 182 mg/dL (<=200); HDL Cholesterol 83 mg/dL (40-60); Triglycerides 101 mg/dL (<=150); VLDL CHOLESTEROL 20.2 mg/dL
== END 2025-08-16 09:33 | disposition home or self-care (01) ==
LOC: LAB 09:33
PROVIDERS: PCP Family Medicine; Visit Provider Internal Medicine Cardiovascular Disease
DX: I25.118 Atherosclerotic heart disease of native coronary artery with other forms of angina pectoris (principal); E78.00 Pure hypercholesterolemia, unspecified
CPT/HCPCS: 36415; 80061; 84450; 84460

== ENCOUNTER 2025-10-03 09:27 | Outpatient (OUT) | payer OTHER, SELFPAY ==
--- OUTSIDE RECORDS SUMMARY | 2025-09-21 11:15 | XMS_ITS | Encounter Summary ---
Author Organization [facility] Address [address] [place] [address] Care Team Providers Care Real Estate Developer Name Role Phone Alma Street DO Unavailable [phone] Nick Ledbetter MD Primary Care Provider [phone] Encounter Details DateTypeDepartmentCare Team (Latest Contact Info)Yyytxoaooal63/14/2025 11:15 [address]Ancillary Procedure [facility] [address] [place] [address] Social History Tobacco UseTypesPacks/DayYears UsedDateSmoking Tobacco: NeverSmokeless Tobacco: NeverAlcohol UseStandard Drinks/WeekCommentsYes0 (1 standard drink = 0.6 oz pure alcohol)caffeine intake: 1-2 cups per day.CommentsUnknownSex and Gender InformationValueDate RecordedSex Assigned at BirthNot on fileLegal SexFemale 01/20/2023 6:52 PM EDTGender IdentityNot on fileSexual OrientationNot on file documented as of this encounter Plan of Treatment DateTypeDepartmentCare Team (Latest Contact Info)Bnonlcatmps84/15/2025 2:30 PM ESTOffice Visit [facility] [address] [place] [address] Meghann Hinojosa DPM [address] [place] [address] 11/05/2025 4:30 PM ESTProcedure Visit [facility] [address] [place] [phone] Meghann Hinojosa DPM [address] [facility] [address] [place] [address] 09/19/2027 11:30 AM ESTOffice Visit [facility] [address] [place] [address] Chris Nielsen PA [address] [place] [address] documented as of this encounter Procedures Procedure NamePriorityDate/TimeAssociated DiagnosisCommentsXR KNEE 1-2 VIEWS RDKFQayhwwy09/14/2025 11:13 AM EST Acute pain of left knee documented in this encounter Results * XR knee 1 or 2 views left (09/21/2025 11:13 AM EST)Anatomical RegionLaterality ModalityLower Extremities, KneeLeftRadiographic ImagingSpecimen (Source) Anatomical Location / LateralityCollection Method / VolumeCollection Time Received Time Narrative 09/21/2025 3:58 PM EST Imaging Result: AP and Lateral of left knee: Surgical position and alignment of prosthetic components without evidence of loosening or wear to femora, tibial or patellar components, The alignment appears to be anatomic. No evidence of accelerated or asymmetric wear to tibial tray or patella button. No evidence of fracture or dislocation. Impression: Unremarkable left total knee arthroplasty Authorizing ProviderResult TypeResult StatusMatthew Alexandre Nielsen PAIMG XR PROCEDURES Final Result documented in this encounter Visit Diagnoses Not on filedocumented in this encounter Care Teams Team MemberRelationshipSpecialtyStart DateEnd Date Nick Ledbetter MD [address] [facility] [address] PCP - GeneralFamily Medicine04/13/[address] DO [address] [place] [address] Referring PhysicianNeurology2/documented as of this encounter
--- OUTSIDE RECORDS SUMMARY | 2025-09-21 11:30 | XMS_ITS | Encounter Summary ---
Author Organization [facility] Address [address] [place] [address] Care Team Providers Care Racehorse Trainer Name Role Phone Alma Street DO Unavailable [phone] Nick Ledbetter MD Primary Care Provider [phone] Reason for Visit * ReasonCommentsPain Encounter Details DateTypeDepartmentCare Team (Latest Contact Info)Qgvqyjntiif00/14/2025 11:30 AM ESTOffice Visit [facility] [address] [place] [address] Chris Nielsen PA [address] [place] [address] Acute pain of left knee (Primary Dx); History of left knee replacement Social History Tobacco UseTypesPacks/DayYears UsedDateSmoking Tobacco: NeverSmokeless Tobacco: NeverAlcohol UseStandard Drinks/WeekCommentsYes0 (1 standard drink = 0.6 oz pure alcohol)caffeine intake: 1-2 cups per day.CommentsUnknownSex and Gender InformationValueDate RecordedSex Assigned at BirthNot on fileLegal SexFemale 01/20/2023 6:52 PM EDTGender IdentityNot on fileSexual OrientationNot on file documented as of this encounter Progress Notes * COURTNEY Washburn - 09/21/2025 11:30 AM EST Images from the original note were not included. Orthopedic Office note: NAME: Paty Pelaez : 1965 EST PT HERE FOR YEARLY RECHECK (L) TKA 07/02/22 (~3YRS 2.5MO)- C/O STIFFNESS XRAY LT KNEE TODAY EPIC 09/21/25 XRAY LT KNEE 08/16/24 EPIC XRAY LT KNEE CHANGE 07/05/23 XRAY EXA 11/03/22 XRAYS, (L) KNEE 09/14/22 IN EXA XRAYS, (L) HIP 09/11/22 IN EXA INTERMITTENT SWELLING- DIFFICULTY WITH HER STAIRS AT HOME- +IBUPROFEN PRN - PT HAD ANOTHER RECENT FOOT SURGERY SASCHA: PT NOTES INCREASE PAIN AFTER SHE WAS SQUATTING TO PUT AIR IN HER TIRE. Knee Musculoskeletal Exam Gait Gait is normal. Inspection Leg length disparity: no discrepancy Left Erythema: none Effusion: none Edema: none Ecchymosis: none Deformity: none Alignment: normal Previous incision: anterior Incision: well-healed Palpation Left Left knee palpation is unremarkable. Increased warmth: none Masses: none Tenderness: none Range of Motion Left Left knee range of motion is normal and full. Active extension: 0 Passive extension: 0 Active flexion: 120 Passive flexion: 120 Strength Left Left knee strength is normal. [...] affect Neurological: alert Skin: intact Lymphadenopathy: none Orders Placed This Encounter Procedures XR knee 1 or 2 views left Views: AP Views: Lateral Reason for exam:: PAIN Is the patient ?: No Procedures Results - Imaging: - X-rays of the left total knee arthroplasty discussed at the bedside with the patient and her mother ICD-10-CM 1. Acute pain of left knee M25.562 XR knee 1 or 2 views left 2. History of left knee replacement Z96.652 Assessment & Plan Post-operative status following left total knee arthroplasty She reports no fevers, chills, or signs of infection. She experiences stiffness after prolonged sitting and some difficulty with steeper steps at home but no issues with steps at work. She has recently transitioned to a sit-down job and has noted some recent weight gain. She is pleased with her prosthesis and states that the symptoms of stiffness have been unchanged from prior and she has no difficulty standing or walking. Treatment plan: Encouraged to resume an exercise routine, focus on healthy weight loss, and maintain motivation for movement and joint health. Discussed the importance of regular physical activity toimprove joint function and overall health. Recommended low-impact exercises such as swimming or cycling to avoid excessive strain on the knee. Advised to monitor weight and consider dietary modifications to support weight loss. Provided education on the benefits of maintaining a healthy weight for joint health and overall well-being. Follow-up: No further concerns or questions were raised. PROCEDURE Procedure Performed Left total knee arthroplasty Questions answered in laymen terms at the bedside. The diagnosis, home exercise plan and any ongoing restrictions/ recommendations reviewed. If unable to be reached in office, I recommend evaluation at nearest Emergency Room if any symptoms worsened or new symptoms develop for requiring urgent evaluation. Visit was preformed using [employer]-automatic pilot mechanic speech recognition. documented in this encounter Plan of Treatment DateTypeDepartmentCare Team (Latest Contact Info)Cgwhovakena97/15/2025 2:30 PM ESTOffice Visit [facility] [address] [place] [address] Meghann Hinojosa DPM [address] [place] [address] 11/05/2025 4:30 PM ESTProcedure Visit [facility] [address] [place] [address] Meghann Hinojosa DPM [address] [place] [address] 09/19/2027 11:30 AM ESTOffice Visit [facility] [address] [place] [address] Chris Nielsen PA [address] [place] [address] documented as of this encounter Procedures Procedure NamePriorityDate/TimeAssociated DiagnosisCommentsXR KNEE 1-2 VIEWS XXVDYehbgqh37/14/2025 11:13 AM EST Acute pain of left [...] arthroplasty Authorizing ProviderResult TypeResult StatusMatthew Alexandre Nielsen PAI XR PROCEDURES Final Result documented in this encounter Visit Diagnoses Diagnosis Acute pain of left knee- Primary History of left knee replacement documented in this encounter Care Teams Team MemberRelationshipSpecialtyStart DateEnd Date Nick Ledbetter MD [address] [place] [address] PCP - GeneralFamily Medicine04/13/[address] DO [address] [place] [address] Referring PhysicianNeurolog01/04/24documented as of this encounter
--- OUTSIDE RECORDS SUMMARY | 2025-09-25 14:00 | XMS_ITS | Encounter Summary ---
Author Organization [facility] Address [address] [place] [address] Care Team Providers Care Immigration Paralegal Name Role Phone Alma Street DO Unavailable [phone] Nick Ledbetter MD Primary Care Provider [phone] Encounter Details DateTypeDepartmentCare Team (Latest Contact Info)Vocqstlmkut52/18/2025 2:00 PM ESTOffice Visit [facility] [address] [place] [address] Meghann Hinojosa DPM [address] [place] [address] Surgery follow-up examination (Primary Dx); Tailor's bunion [...] midfoot. Surgery was performed on 09/14/2025 at [facility]. Patient complains of pain 10. Current symptoms [...] Plan of Treatment DateTypeDepartmentCare Team (Latest Contact Info)Zntkmohniaw05/15/2025 2:30 PM ESTOffice Visit [facility] [address] [place] [address] Meghann Hinojosa DPM [address] [place] [address] 11/05/2025 4:30 PM ESTProcedure Visit [facility] [place] [facility] [address] [place] [address] Meghann Hinojosa DPM [address] [place] [address] 09/19/2027 11:30 AM ESTOffice Visit [facility] [address] [facility] [place] [address] Chris Nielsen PA [address] [place] [address] documented as of this encounter Visit Diagnoses Diagnosis Surgery follow-up examination- Primary Follow-up examination, following unspecified surgery Tailor's bunion of right foot Right foot pain Pain in soft tissues of limb documented in this encounter Care Teams Team MemberRelationshipSpecialtyStart DateEnd Date Nick Ledbetter MD [address] [facility] [place] [address] PCP - GeneralFamily Medicine04/13/[address] DO [address] [place] [address] Referring PhysicianNeurology2/documented as of this encounter
--- OUTSIDE RECORDS SUMMARY | 2025-10-01 06:15 | XMS_ITS ---
Author Organization [facility] in [place] Address [address] [place] [address] Care Team Providers Care Sofa Back Upholsterer Name Role Phone Volodymyr Ledbetter Primary Care Provider [phone] Allergies No Known Allergies REASON FOR VISIT Presents to office alone for yearly wellness Medications Medication SIG (Take, Route, Frequency, Duration) Notes Start Date End Date Status Doxepin HCl 10 MG Oral; Duration: 30 Days ActiveLevothyroxine Sodium 150 MCGOral; Duration: 90 DaysActiveAlbuterol Sulfate HFA 108 (90 Base) MCG/ACTINHALE 2 PUFFS BY MOUTH EVERY 4 HOURS NEEDED; Duration: 16ActiveamLODIPine Besylate 10 MG1 tablet Orally Once a day; Duration: 90 days06/11/2023ctiveSimvastatin 20 MG1 tablet in the evening Orally Once a day; Duration: 90 days03/18/2023ctiveNurtec 75 MG1 tablet on the tongue and allow to dissolve Orally PRN; Duration: 30 [id number] HCl 500 MG1 tablet with a meal Orally Once a day; Duration: 30 days09/03/2023ctive Metoprolol Succinate ER 50 MG1 tablet Orally Once a dayCardioActive Social History Tobacco Use: Social History Observation Description Date Details (start date - stop date) Never Smoker NA - NA Tobacco Use/Smoking Question Answer Notes Patient is a nonsmoker AUDIT-C (Standard) Question Answer Notes Did you have a drink containing alcohol in the p ast year? Yes How often did you have six or more drinks on one occasion in the past year?Never (0 point)How many drinks did you have on a typical day when you were drinking in the past year?1 or 2 drinks (0 point)How often did you have a drink containing alcohol in the past year?2 to 4 times a month (2 points)Xgfjyj1Qblgbgrvmaroty Negative Vital Signs Blood pressure systolic 128 mm Hg 10/01/20 25 Blood pressure diastolic 80 mm Hg 025 Height 62 in 10/01/2025 Weight 237.8 lbs 10/01/2025 BMI 43.49 kg/m2 10/01/2025 Encounters Encounter Location Date Provider Diagnosis [facility] [address] [place] [address] 10/01/2025 Volodymyr Ledbetter Well adult Z00.00 ; Diabetes mellitus E11.9 and Hypothyroidism E03.9 Assessments Encounter Date Diagnosis (ICD Code) Assessment Notes Treatment Notes Treatment Clinical Notes Section Notes 10/01/2025 Well adult (ICD-10 - Z00.00) 10/01/2025Diabetes mellitus (ICD-10 - E11.9)10/01/2025Hypothyroidism (ICD-10 - E03.9) Plan Of Treatment Pending Test Test Name Order Date HEMOGLOBIN A1C (GLYCO) 10/01/2025 IRON, TOTAL 10/01/2025 LIPID PANEL (CHOL/TRIG/HDL/LDL) 10/01/20 25 VITAMIN D, 25 LEVEL (TOTAL) 10/01/2025 Insulin Level 10/01/2025 STOOL OCCULT BLOOD 10/01/2025 THYROID PANEL (T4/TSH/FREE T3) 5 CMP (COMP MET MA) w/eGFR CKD-EPI 2024 CBC WITH DIFF 10/01/2025 Progress Notes * Mili PELAEZ:1965 (60 yo F)Acc No.[id number]:10/01/2025 Progress Note Patient: Paty NIX :?Nick Ledbetter ([facility]), MDDOB:1965???Age: 60 Y???Sex:FemaleDate:10/01/2025Phone:[phone]:[id number] [id number] In:11:10 AM Mary Out:11:53 AM EST Subjective: * Chief Complaints: * P resents to office alone for yearly wellness * HPI: ???General:? well adult - no issues other than feet - seeing surgeon. * ROS: ???EENT:?hearing changes?denies.?visual changes?denies. non-healing mouth sores?denies.?swollen glands or neck lumps?denies.?hoarseness?denies.?sore throat?denies.?difficulty swallowing?denies.?nose bleeds?denies.?nasal congestion?denies.?ear ache?denies.?ear discharge denies.?ringing in ears?denies.?light sensitivity?denies.?eye pain?denies.?blurring?denies.?eye irritation?denies.?double vision?denies. vision loss?denies.?General/Constitutional:?Sweats:?Denies.?Fatigue?denies.?Sleep proble ms?denies.?Anorexia?denies.?Malaise?denies.?Weight loss?denies. Fatigue or Weakness?denies.?Fever or Chills?denies.?Cardiovascular:?Shortness of Breath w/lying flat?denies.?Lightheadedne ss/dizziness?denies.?Chest tightness/ heavy pressure?denies.?Swelling of legs, a nkles, or feet?denies.?Waking up with shortness of breath?denies.?Chest pain&#16 0;denies.?Palpitations?denies.?Weight gain?denies.?Respiratory:?Chronic or frequent cough?denies.?Coughing up blood&#1 60;denies.?Difficulty breathing?denies.?Productive cough?denies.?Snoring&#1 60;denies.?Shortness of breath that awakens from sleep (PND)?denies.?Chest pain? denies.?Sputum production?denies.?Wheezing?denies.?Musculoskeletal:?Joint pain?denies.?Joint Fluid?denies.?Backpain?denies.?Knee pain?denies.?Neck pain?denies.?Joint Stiffness?denies.?Muscle cramps?denies.?Weakness of muscles?denies.?Arthritis?denies.?Muscle aches?denies.?Pain in shoulder(s)?denies.?Swollen joints?denies.? * Active Problem List G47.00 Insomnia, unspecifie d Modified On:06/10/2023/U Status:scnzrgfpwX62.90Thyrotoxicosis, unspecified without thyrotoxic crisis or storm Modified On:09/06/2023 Status:oopnzrmzqS19.909Migraine, unspecified, not intractable, without status migrainosus Modified On:01/06/2024U Status:domucuwlxE77.909Asthma Modified On:08/02/2024U Status:guvyyncvjO24.00Well adult Modified On:09/29/2024U Status:rkejbtxuoN02.9Chest pain Modified On:11/14/2024/U Status:psnkwnachH50.9Hypothyroidism Modified On:01/01/2025U Status:oixlidatfP14.9Diabetes mellitus Modified On:01/01/2025/U Status:wpwzuykxsR91.11Bunion of right foot Modified On:08/20/2025 Status:confirmed * Medical History: * Surgical History: L eft knee replacement Total Hysterectomy Left foot- 3rd toe surgery 2023growth removal from right foot 2024 * Hospitalization/Major Diagno stic Procedure: * Family History: M other: , breast cancer. * Social History: ???Tobacco Use:?Tobacco Use/Smoking?Patient is a?nonsmoker ???Drug/Alcohol:?AUDIT-C (Standard)?Did you have a drink containing alcohol in the past year??Yes ?How often did you have six or more drinks on one occasion in the past year??Never (0 point) ?How many drinks did you have on a typical daywhen you were drinking in the past year??1 or 2 drinks (0 point) ?How often did you have a drink containing alcohol in the past year??2 to 4 times a month (2 points) ?Points?2 ?Interpretation?Negative * Medications: T akingAlbuterol Sulfate HFA 108 (90 Base) MCG/ACT Aerosol Solution INHALE 2 PUFFS BY MOUTH EVERY 4 HOURS NEEDED amLODIPine Besylate 10 MG Tablet 1 tablet Orally Once a day Doxepin HCl 10 MG Capsule Oral Levothyroxine Sodium 150 MCG Tablet Oral metFORMIN HCl 500 MG Tablet 1 tablet with a meal Orally Once a day Metoprolol Succinate ER 50 MG Tablet Extended Release 24 Hour 1 tablet Orally Once a day , Notes to Pharmacist: CardioNurtec(Rimegepant Sulfate) 75 MG Tablet Disintegrating 1 tablet on the tongue and allow to dissolve Orally PRN , Notes to Pharmacist: PRNSimvastatin 20 MG Tablet 1 tablet in the evening Orally Once a day Medication List reviewed and reconciled with the patientTaking Albuterol Sulfate HFA 108 (90 Base) MCG/ACT Aerosol Solution INHALE 2 PUFFS BY MOUTH EVERY 4 HOURS NEEDED Taking amLODIPine Besylate 10 MG Tablet 1 tablet Orally Once a day Taking Doxepin HCl 10 MG Capsule Oral Taking Levothyroxine Sodium 150 MCG Tablet Oral Taking metFORMIN HCl 500 MG Tablet 1 tablet with a meal Orally Once a day Taking Metoprolol Succinate ER 50 MG Tablet Extended Release 24 Hour 1 tablet Orally Once a day , Notes to Pharmacist: CardioTaking Nurtec(Rimegepant Sulfate) 75 MG Tablet Disintegrating 1 tablet on the tongue and allow to dissolve Orally PRN , Notes to Pharmacist: PRNTaking Simvastatin 20 MG Tablet 1 tablet in the evening Orally Once a day Medication List reviewed and reconciled with the patient * Allergies: N .K.D.A.no[Allergies Verified] Objective: * Vitals: W t:237.8lbs, Ht: 62 in, BP:128/80mm Hg, BMI:43.49Index, Ht-cm: 157.48 cm, Wt-k.87 kg. * Examination: ???Physical Exam: ?GENERAL:?well developed, well nourished, in no acute distress.?HEAD:?normocephalic/atraumatic.?EYES:?pupils equal, round and reactive to light, conjunctivae and sclerae normal.?EARS:?no deformity or lesion of external ear, canals and TM appear normal bilaterally, TM's intact, not inflamed with normal light reflex, hearing grossly normal to conversational speech.?NOSE:?no deformity, discharge, inflammation, or lesions. ?MOUTH:?mucous membranes moist, normal oropharynx and posterior pharynx without lesions or exudates, tongue normal, dentition normal.?NECK:?neck supple, no masses or palpable cervical nodes, trachea midline, thyroid without nodules, masses, tenderness, or enlargement.?CHEST:?no chest wall deformity, no chest wall tenderness. ?LUNGS:?normal respiratory effort and clear to auscultation, no wheezes, rales, or rhonchi, good air exchange.?CARDIO:?regular rate and rhythm, normal S1 and S2, nor murmur, rub, or gallop.?PULSES:?normal capillary refill.?ABDOMEN:?soft, non-distended, non-tender, no masses.?MUSCULOSKELETAL:?no deformity or scoliosis noted, normal range of motion, joints normal, no erythema, edema, effusion, or ecchymosis.?EXTREMITY:?no clubbing, cyanosis, edema, or deformity withnormal ROM in both upper and lower bilateral extremities.?NEUROLOGIC:?grossly normal.?SKIN:?no rashes, ulcerations, or suspicious lesions.?LYMPH NODES:?no cervical adenopathy, nodes normal.?MENTAL STATUS:?alert and oriented x3, normal mood and affect.? Assessment: * Assessment: 1.?Well adult - Z00.00 (Primary)???2.?Diabetes mellitus - E11.9?? ?3.?Hypothyroidism - E03.9??? Plan: * Treatment: ?LAB: HEMOGLOBIN A1C (GLYCO) ?LAB: IRON, TOTAL ?LAB: LIPID PANEL (CHOL/TRIG/HDL/LDL) ?LAB: VITAMIN D, 25 LEVEL (TOTAL) ?LAB: Insulin Level ?LAB: STOOL OCCULT BLOOD ?LAB: THYROID PANEL (T4/TSH/FREE T3) ?LAB: CMP (COMP MET MA) w/eGFR CKD-EPI ?LAB: CBC WITH DIFF * Procedure Codes: * Preventive Medicine: ??Screenings/Counseling:?BMI ACTION PLAN?Above Normal BMI Follow-up?Dietary management education, guidance, and counseling See treatment section of progress note for complete details of management plan. * * Sign off status: CompletedVisit Status:?CHK (Check Out) true * Provider: Rom Ledbetter ([facility])MD Date: 1 12/01/2024 Generated for Printing/Faxing/eTransmitting on:?10/03/2025 09:32 AM EST History and Physical Notes * HPI (History of Present Illness) CategorySub-CategoryDetailNotesCategory NotesGeneralwell adult - no issues other than feet - seeing surgeon Examination CategorySub-CategoryDetailNotesCategory NotesPhysical ExamGENERAL:well developed, well nourished, in no acute distressHEAD:normocephalic/atraumatic EYES:pupils equal, round and reactive to light, conjunctivae and sclerae normal EARS:no deformity or lesion of external ear, canals and TM appear normal bilaterally, TM's intact, not inflamed with normal light reflex, hearing grossly normal to conversational speechNOSE:no deformity, discharge, inflammation, or lesionsMOUTH:mucous membranes moist, normal oropharynx and posterior pharynx without lesions or exudates, tonguenormal, dentition normalNECK:neck supple, no masses or palpable cervical nodes, trachea midline, thyroid without nodules, masses, tenderness, or enlargementCHEST:no chest wall deformity, no chest wall tendernessLUNGS:normal respiratory effort and clear to auscultation, no wheezes, rales, or rhonchi, good air exchangeCARDIO:regular rate and rhythm, normal S1 and S2, nor murmur, rub, or gallopPULSES:normal capillary refillABDOMEN:soft, non-distended, non-tender, no massesRECTAL:MUSCULOSKELETAL:no deformity or scoliosis noted, normal range of motion, joints normal, no erythema, edema, effusion, or ecchymosisEXTREMITY:no clubbing, cyanosis, edema, or deformity with normal ROM in both upper and lower bilateral extremitiesNEUROLOGIC:grossly normalSKIN:no rashes, ulcerations, or suspicious lesionsLYMPH NODES:no cervical adenopathy, nodes normalMENTAL STATUS:alert and oriented x3, normal mood and affect
--- OUTSIDE RECORDS SUMMARY | 2025-10-03 09:31 | XMS_ITS | CCD ---
Author Organization [facility] CliniSyvt Care Team Providers Care Machine Bander And Cellophaner Helper Name Role Phone PHYSICIAN, DEFAULT Unavailable Unavailable [...] Attending Unavailable HOY, DR BURNHAM Admitting Unavailable CRISTINA, DR BURNHAM Primary Care Unavailable ENGELER, DR NORA Zamorano Admitting Unavailable ENGELER, DR NORA Zamorano Attending Unavailable WEST, DR JETT Burns Consulting Unavailable CRISTINA, DR BURNHAM Primary Care Unavailable ENGSHANNAN, DR NORA Zamorano Consulting Unavailable Chacha Evans MD Primary Care Provider FAHEEM ROCK Referring Unavailable CHACHA EVANS Primary Care Unavailable Chacha Evans MD Primary Care Provider [phone] DO Unavailable NADIA SOTOMAYOR Attending Unavailable CHACHA EVANS Referring Unavailable CHACHA EVANS Primary Care Unavailable FAHEEM ROCK Attending Unavailable CHACHA EVANS Referring Unavailable CHACHA EVANS Primary Care Unavailable Chacha Evans MD Primary Care Provider [phone] Chacha Evans MD Primary Care Provider [phone] CHACHA EVANS Referring Unavailable CHACHA EVANS Primary Care Unavailable CHACHA EVANS Referring Unavailable CHACHA EVANS Primary Care Unavailable FHAEEM ROCK Attending Unavailable CHACHA EVANS Referring Unavailable CHACHA EVANS Primary Care Unavailable Chacha Evans MD Primary Care Provider [phone] Chacha Evans MD Primary Care Provider [phone] Chacha Evans MD Primary Care Provider [phone] DO Attending Provider DIPESH RASCON Referring Unavailable DIPESH RASCON Attending Unavailable DIPESH RASCON Attending Unavailable DIPESH RASCON Attending Unavailable [address] DO Unavailable Chacha Evans MD Primary Care Provider [phone] JOSUE HINOJOSA Attending Unavailable JOUSE HINOJOSA Attending Unavailable JOSUE HINOJOSA Attending Unavailable JOSUE HINOJOSA Attending Unavailable JOSUE HINOJOSA Attending Unavailable JOSUE HINOJOSA Attending Unavailable JOSUE HINOJOSA Attending Unavailable JOSUE HINOJOSA Attending Unavailable Medications Current Medications MedicationDrug Class(es)DatesSig (Normalized)Sig (Original)acetaminophen 325 mg / oxyCODONE hydrochloride 5 mg oral tablet (2 sources)Opioid AgonistStart: 09-05-2025 End: 65-68-0902hbiq 1 tablet by mouth every six hoursoxyCODONE-acetaminophen (Percocet) 5-325 MG tablet Indications: Tailor's bunion of right foot Take 1 tablet by mouth every 6 (six) hours for 5 days 20 tablet 09/05/2025 09/10/2025 [id number] 200 actuat albuterol 0.09 mg/actuat metered dose inhaler (20 sources)beta2-Adrenergic AgonistStart: 78-99-6061rzwk 2 puff(s) by inhalation every four hours as needed for wheezingalbuterol (PROVENTIL HFA;VENTOLIN HFA) 90 mcg/actuation inhaler Indications: Upper respiratory tract infection, unspecified type , Cough in adult Inhale 2 puffs every 4 (four) hours as needed for wheezing. 18 g 4 02/13/2019 ActiveStart: 13-89-5323PVAYJP HFA 90 mcg/actuation inhaleralbuterol HFA (ProAir HFA) 90 mcg/act inhaler every 4 (four) hours. ActiveamLODIPine 10 mg oral tablet (20 sources)Dihydropyridine Calcium Channel BlockerStart: 49-83-4832qhNAAPWfxh (NORVASC) 10 mg tablet Take 1 tablet (10 mg total) by mouth. 12/11/2024 Active Comment on above:TK 1 T PO QDamoxicillin 500 mg oral tablet (20 sources)Penicillin-class AntibacterialStart: 98-16-6537asug 4 tablets by mouth once at mealtimeamoxicillin (Amoxil) 500 MG tablet Indications: History of left knee replacement 4 tabs PO once 30-60 mins before procedure with food 4 tablet 3 08/15/2025 Activeaspirin 81 mg delayed release oral tablet (1 source)Platelet Aggregation Inhibitor, Nonsteroidal Anti-inflammatory Drug Start: 71-16-3855mcty 1 tablet by mouth once dailyAspirin 81 mg tablet,delayed release (DR/EC) Active 81 MG PO Daily June 25, 2025 12:00am Complies with drug therapycholecalciferol 0.025 mg oral tablet (3 sources)Vitamin Dtake 1 tablet by mouth every twenty-four hoursVitamin D3 25 MCG (1000 UT) 1 tablet Orally Once a day Activediclofenac sodium 75 mg delayed release oral tablet (6 sources)Nonsteroidal Anti-inflammatory Drugtake 1 tablet by mouth every twelve hoursDiclofenac Sodium 75 MG 1 tablet Orally Twice a day Activedoxepin hydrochloride 10 mg oral capsule (20 sources)Tricyclic AntidepressantStart: 03-19-2025 End: 49-20-6581rckbgzn (SINEquan) 10 MG capsule Indications: Insomnia, unspecified type Take 1-3 capsules at bed time 120 capsule 1 03/19/2025 Active Start: 35-52-8726urdiils (SINEquan) 10 MG capsule Indications: Insomnia, unspecified type 2 po q hs 180 capsule 1 07/04/2024 ActiveStart: 06-21-2024 End: 21-61-1185rels 2 capsules by mouth at bedtimedoxepin (SINEquan) 10 MG capsule Indications: Insomnia, unspecified type TAKE 2 CAPSULES BY MOUTH AT BEDTIME 180 capsule 06/21/2024 07/04/2024 Discontinued (Reorder)ferrous sulfate 325 mg oral tablet (3 sources)take 1 tablet by mouth every twenty-four hoursIron 325 (65 Fe) MG 1 tablet Orally Once a day Activefluocinonide 0.0005 mg/mg topical ointment (20 sources)CorticosteroidStart: 11-25-3284chbsvjoejdal (Lidex) 0.05 % ointment APPLY TOPICALLY TO HANDS AND KNEES TWICE DAILY 03/10/2023 ActiveIron (3 sources)take 1 tablet by mouth once dailyIron 325 (65 Fe) MG 1 tablet Orally Once a day ActivelevoFLOXacin 500 mg oral tablet (20 sources)Quinolone AntimicrobialStart: 15-58-1741hxyj 1 tablet by mouth in the morninglevoFLOXacin (Levaquin) 500 MG tablet Take 1 tablet by mouth in the morning. 10/22/2022 Activelevothyroxine sodium 0.15 mg oral tablet (20 sources)l-ThyroxineStart: 16-98-3806lwygktnbdbwxu (SYNTHROID, LEVOTHROID) 150 MCG tablet Indications: Postablative hypothyroidism TAKE 1 TABLET BY MOUTH EVERY MORNING EXCEPT TAKE 2 TABLETS ON SATURDAYS AND SUNDAYS. 112 tablet 1 09/18/2025 ActiveStart: 04-16-2023 End: 89-68-5161gdzc 1 tablet by mouth once dailyLevothyroxine 150 mcg tablet Active 150 MCG PO Daily June 25, 2025 12:00am Complies with drug therapy Start: 49-83-0378ebvt 1 tablet by mouth once dailylevothyroxine (SYNTHROID) 150 mcg tablet Take 1 tablet by mouth once daily. 0 09/19/2012 Activetake 1 tablet by mouth once daily in the morningLevothyroxine Sodium 150 MCG 1 tablet in the morning on an empty stomach Orally Once a day ActiveComment on above:Take 1 tablet by mouth once daily.24 hr metFORMIN hydrochloride 500 mg extended release oral tablet (20 sources)BiguanideStart: 96-63-6756akkr 1 tablet by mouth every twenty-four hoursMetformin 500 mg tablet extended release 24 hr Active MG PO June 25, 2025 12:00am Complies withdrug therapyStart: 09-03-2023 End: 25-91-6234seoc 1 tablet by mouth once daily at dinnermetFORMIN XR (GLUCOPHAGE XR) 500 mg 24 hr tablet Indications: Type 2 diabetes mellitus without complication, without long-term current use of insulin ([facility]) TAKE 1 TABLET(500 MG) BY MOUTH DAILY WITH DINNER 90 tablet 3 08/21/2024 ActiveStart: 27-88-6713yplj 1 tablet by mouth at mealtimemetFORMIN (Glucophage) 500 MG tablet Take 500 mg by mouth in the evening. Take with meals. 10/21/2022 ActiveStart: 74-76-3396mqqn 2 tablets by mouth twice daily at mealtimemetFORMIN ER (GLUCOPHAGE XR) 500 mg 24 hr tablet TK 2 TS PO BID WITH A MEAL 1 03/14/2017 Activetake 1 tablet by mouth every twenty-four hoursmetFORMIN HCl ER 500 MG 1 tablet with evening meal Orally Once a day ActiveComment on above:TK 2 TS PO BID WITH A MEAL24 hr metoprolol succinate 50 mg extended release oral tablet (5 sources)beta-Adrenergic BlockerStart: 12-15-2024 End: 00-98-7120tgeq 1 tablet by mouth every twenty-four hours in the morning metoprolol succinate XL (TOPROL XL) 50 mg 24 hr tablet Take 1 tablet (50 mg total) by mouth in the morning. 12/15/2024 12/15/2025 Activemultivitamin capsule (9 sources)take 1 capsule by mouth in the morningmultivitamin capsule Take 1 capsule by mouth in the morning. Activetake 1 capsule by mouth in the morning multivitamin capsule Take 1 capsule by mouth in the morning. 0 Active Multivitamin preparation (6 sources)take 1 tablet by mouth once dailyMulti Vitamin - 1 tablet Orally Once a day Activerimegepant 75 mg disintegrating oral tablet (20 sources)Start: 01-83-7984Beoayfgkav (Nurtec Odt) 75 mg tablet,disintegrating Active 75 MG PO Every 48 hours as needed for migraine headache June 25, 2025 12:00am Complies with drug therapyStart: 51-93-1834jzozejzdlv (NURTEC ODT) 75 mg tablet,disintegrating DISSOLVE 1 TABLET ON THE TONGUE DAILY EVERY OTHER DAY NEEDED FOR MIGRAINE 07/04/2024 ActiveStart: 03-24-2024 End: 55-32-1292dure 1 tablet by mouth once daily as needed, then take 1 tablet by mouth every other day as neededRimegepant Sulfate (Nurtec) 75 MG tablet dispersible Indications: Insomnia, unspecified type Take 75 mg by mouth Daily as needed (migraine qod) 15 tablet 2 07/04/2024 10/02/2024 Activesimvastatin 20 mg oral tablet (20 sources)HMG-CoA Reductase InhibitorStart: 38-14-4839magd 1 tablet by mouth in the eveningsimvastatin (Zocor) 20 MG tablet Take 20 mg by mouth in the evening. 03/18/2023 Ffobdg28 hr verapamil hydrochloride 200 mg extended release oral capsule (10 sources)Calcium Channel BlockerStart: 46-83-0392fcho 2 capsules by mouth once daily in the eveningverapamil HCl ER (VERELAN PM) 200 mg capsule, [address] Indications: Essential hypertension Take 2 capsules (400 mg total) by mouth daily. 180 capsule 04/18/2019 ActiveStart: 76-75-1191xjzt 200 mg by mouth once daily at bedtimeverapamil PM 200 mg CPCT Take 200 mg by mouth daily at bedtime. 0 09/19/2012 ActiveComment on above:Take 200 mg by mouth daily at bedtime.Vitamin D3 25 MCG (1000 UT) (3 sources)take 1 tablet by mouth once dailyVitamin D3 25 MCG (1000 UT) 1 tablet Orally Once a day Active Completed/Discontinued Medications MedicationDrug Class(es)DatesSig (Normalized)Sig (Original)acetaminophen 325 mg / HYDROcodone bitartrate 5 mg oral tablet (11 sources)Opioid AgonistStart: 08-10-2024 End: 26-19-6851dpbi 1 tablet by mouth every six hours for painHYDROcodone- acetaminophen ([place]) 5-325 MG tablet Indications: Exostosis of left foot Take 1 tabletby mouth every 6 (six) hours if needed for severe pain for up to 5 days 20 tablet 08/10/2024 08/15/2024 ExpiredStart: 49-04-1723efkx 1 tablet by mouth every four hours as needed for painHYDROcodone-Acetaminophen 5-325 MG 1 tablet as needed for pain Orally up to every 4 hrs for 3 days Jun, Active amitriptyline hydrochloride 25 mg oral tablet (16 sources)Tricyclic AntidepressantStart: 05-80-5143dptf 1 tablet by mouth once daily at bedtimeamitriptyline 25 mg tablet Take 1 tablet by mouth daily at bedtime. 0 09/19/2012 Activetake 1 tablet by mouth once dailyamitriptyline (ELAVIL) 10 mg tablet Take 1 tablet (10 mg total) by mouth nightly. Active Comment on above:Take 1 tablet by mouth daily at bedtime.lisinopril 5 mg oral tablet (10 sources)Angiotensin Converting Enzyme InhibitorStart: 14-91-7789atus 1 tablet by mouth once dailylisinopril (ZESTRIL, PRINIVIL) 5 mg tablet TK 1 T PO QD 1 04/11/2017 ActiveComment on above:TK 1 T PO QDmethylPREDNISolone (15 sources)CorticosteroidStart: 09-11-2022 End: 88-68-2960iqjpfmVVGTQHPjzrme (Medrol Dospak) 4 MG tablets FOLLOW PACKAGE DIRECTIONS 09/11/2022 08/16/2024 Discontinued (Therapy completed)Start: 01-15-3586ghbmspBKNFGQCyqkwu (Medrol Dospak) 4 MG tablets FOLLOW PACKAGE DIRECTIONS 09/11/2022 ActiveStart: 35-35-9360bnvifgPIBTAQLnmmkf (Medrol Dospak) 4 MG tablets FOLLOW PACKAGE DIRECTIONS 0 09/11/2022 ActiveMULTIVITAMIN TABLET (1 source)Start: 23-48-2758SFDVBBIITOQL TABLETpredniSONE 10 mg oral tablet (15 sources)Start: 08-02-2023 End: 32-09-9653nqtv 2 tablets by mouth twice daily, then take 1 tablet by mouth twice daily, then take 1 tablet bymouth once dailypredniSONE (Deltasone) 10 MG tablet Indications: Osteoarthritis of right ankle and foot Take 2 pills by mouth twice daily for 5 days, take 1 pill twice daily for 5 days then 1 pill once daily for 5 days. 35 tablet 1 08/02/2023 08/16/2024 Discontinued (Therapy completed)Triamcinolone (5 sources)CorticosteroidStart: 08-97-9111Ljyzxxu -40 mg Jan, 40 mg Start: 67-27-5517Qhejdxs -40 mg Jun, 40 mg Problems Active Problems Problem ClassificationProblemDateDocumented DateEpisodic/ChronicAcquired foot deformities (4 sources)Tailor's bunion of right foot; Translations: [Bunionette of right foot]13-74-3713HtzllgqaMbqzus of breast (19 sources)Intraductal carcinoma in situ of breast; Translations: [Intraductal carcinoma in situ of unspecified breast]Onset: 320255-16-4838Rkjadrr Complications of surgical procedures or medical care (11 sources)Postprocedural hypothyroidism; 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]Onset: 278885-00-9638IzobjkbTovuyjhy atherosclerosis and other heart disease (4 sources)Atherosclerotic heart disease of hopi coronary artery without angina pectoris; Translations: [Atherosclerotic heart disease of hopi coronary artery with other forms of angina pectoris]Onset: 33-68-4192IevwwlwRijxtjnf mellitus without complication (20 sources)Type 2 diabetes mellitus without complications; Translations: [Diabetes mellitus]Onset: 442856-92-0723YzpqjipEvgeyadri of lipid metabolism (2 sources)Pure hypercholesterolemia, unspecified; Translations: [Pure hypercholesterolemia, unspecified]Onset: 16-14-4991WrbqvhhQzvkusttd hypertension (11 sources)Hypertensive disorder; Translations: [Essential (primary) hypertension]Onset: 311655-45-5622IhsldxrBfqhffwj; including migraine (4 sources)Migraine without aura, not refractory ; Translations: [Chronic migraine without aura, not intractable, without status migrainosus]07-04-2024 ChronicMenstrual disorders (1 source)Irregular periods; Translations: [Irregular menstruation, unspecified] Onset: 651896-10-1134YdhtjpjMwxoklxhzjtpt mental health disorders (2 sources)Primary insomnia; Translations: [Primary insomnia]17-56-3866Rgfpsxg Osteoarthritis (20 sources)Osteoarthritis of left knee joint; Translations: [Unilateral primary osteoarthritis, left knee]Onset: 11-04-2021 Resolved: 21-78-3144CzqorbkTteiu aftercare (12 sources)Surgical follow-up; Translations: [Encounter for follow-up examination after completed treatment for conditions other than malignant neoplasm]89-54-1540JfcusetjNobds bone disease and musculoskeletal deformities (12 sources)Exostosis of left foot; Translations: [Other specified disorders of bone, ankle and foot]90-82-2581SrnahcgdTuvyg congenital anomalies (20 sources)Congenital deformity of toe; Translations: [Congenital deformity of feet, unspecified, unspecified foot]Onset: 264690-09-9839YwcjbjvLpqzm connective tissue disease (10 sources)Pain in left foot; Translations: [Pain in left foot]08-10-2024 EpisodicOther connective tissue disease (2 sources)Pain in right foot; Translations: [Pain in right foot]09-05-2025 EpisodicOther female genital disorders (9 sources)Complex atypical endometrial hyperplasia; 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]]Onset: 790416-52-7232HshtcypJilek non- traumatic joint disorders (2 sources)Pain in left knee; Translations: [Pain in joint, lower leg]08-15-2024 EpisodicOther nutritional; endocrine; and metabolic disorders (2 sources)Morbid (severe) obesity due to excess calories; Translations: [Morbid (severe) obesity due to excess calories]Onset: 17-21-9943DvlbnbiZvmnj upper respiratory infections (1 source)Acute sinusitis, unspecified; Translations: [ACUTE SINUSITIS UNSPECIFIED]Onset: 10-89-2670CvpdzztbHsvwhgmm codes; unclassified (1 source)Family history of malignant neoplasm of breast; Translations: [FAMILY HX MALIG NEOPLASM OF BREAST]Onset: 44-20-0881TefkcyftVxhoupu disorders (11 sources)Hypothyroidism; Translations: [Hypothyroidism, unspecified]Onset: 294398-02-6006YapqzytQbmxfevedosi (3 sources)CONTACT W/AND (SUSP) EXPOS COVID-19; Translations: [CONTACT W/AND (SUSP) EXPOS COVID-19]Onset: 09-30-2022 Past or Other Problems Problem ClassificationProblemDateDocumented DateEpisodic/ChronicCancer of breast (14 sources)Personal history of malignant neoplasm of breast; Translations: [History of malignant neoplasm of breast]Onset: 39-53-4997IfmmnpdtXeaubbgasackt of surgical procedures or medical care (9 sources)Non-healing surgical wound; Translations: [Other complications of procedures, not elsewhere classified, initial encounter]Onset: 11-16-2018 59-11-3259FdthavniIwzeo disorders and dislocations; trauma-related (4 sources)Other tear of medial meniscus, current injury, left knee, subsequent encounterOnset: 10-14-2021 Resolved: 85-53-7579YlsjksfvCyhs disorders (9 sources)Mood disordersOnset: 822075-49-8450Nurkoja (20 sources)Onychomycosis; Translations: [Tinea unguium]Onset: 04-30-2023 24-55-9756XfzgejvxNygrr connective tissue disease (20 sources)Pain in both feet; Translations: [Pain in right foot]Onset: 431447-05-4812EmakgrokIurht connective tissue disease (20 sources)Tendinitis of right posterior tibial tendon; Translations: [Posterior tibial tendinitis, right leg]Onset: 114388-31-4598CmzqmrfgPogwe diseases of veins and lymphatics (20 sources)Vascular insufficiency; Translations: [Venous insufficiency (chronic) (peripheral)]Onset: 521891-64-9685MdbubcszErflw ear and sense organ disorders (1 source)Subjective tinnitus; Translations: [Tinnitus, unspecified ear]Onset: 254024-81-9032GdasyqbaAvrvw screening for suspected conditions (not mental disorders or infectious disease) (2 sources)Abnormal result of other cardiovascular function study; Translations: [Abnormal result of other cardiovascular function study]Onset: 12-17-2024 EpisodicOther skin disorders (20 sources)Callosity; Translations: [Corns and callosities]Onset: 04-30-2023 38-16-0083CkfzxcauJtnuesmh codes; unclassified (4 sources)Other specified postprocedural statesOnset: 10-14-2021 Resolved: 37-09-1564NxdtjmktAbfomehh codes; unclassified (2 sources)Insomnia; Translations: [Insomnia, unspecified]20-85-7880Gpskusoi Respiratory failure; insufficiency; arrest (adult) (9 sources)Hypoxemic respiratory failure; Translations: [Respiratory failure, unspecified with hypoxia]Onset: 773997-71-6905DuldayeqScvemifztynu (1 source)CONTACT W/AND (SUSP) EXPOS COVID-19; Translations: [CONTACT W/AND (SUSP) EXPOS COVID-19]Onset: 68-38-1498Cqwtjbkfuwct (9 sources)Onset: Results Test NameValueInterpretationReference RangeFacilityXR Foot - right 3 Viewson 93-98-5338Suklhrh Result: Three views of the right foot: AP, MO, LAT were performed today in the office. Radiographs were read by myself and demonstrate: No evidence of acute fracture or dislocation. Normal joint spaces noted with no evidence of narrowing or osteophyte formation. Resection of the bone along the lateral 5th metatarsal headDoctors Hospital of Springfield HealthcareRadiology Study observation (narrative)[facility] HospitalOffice Visiton 83-97-1552Npokrl-up visit [id number] Richelle Montes 1965 F Date Provider Department Center 08/17/2025 DIPESH FAULKNER Family History Problem Relation Age of Onset Breast cancer Mother Heart disease Father Family Status - Relation Status Age at Mother Father Alive Level of Service:03339 DE OFFICE/OUTPATIENT ESTABLISHED MOD MDM 30 MIN Reason for Visit and Comments: Follow-up [996207] - Patient is here today for a 6 month follow. Patient need surgery clearance for a Bunionectomy. Patient has no cardiac complaints at this time Hypertension [373585] Hyperlipidemia [182] Coronary Artery Disease [187]NormalUnUpper Valley Medical CenterOrders Onlyon 23-16-1623Drsrya [id number] Richelle Montes 1965 F Date Provider Department Center 08/17/2025 [id number], NAHUN Mann Family History Problem Relation Age of Onset Breast cancer Mother Heart disease Father Family Status - Relation Status Age at Mother Father AliveNormalUniversSelect Medical Specialty Hospital - CantonOffice Visiton 02-05-2025 Follow-up [id number] Richelle Montes 1965 F Date Provider Department Center 02/05/2025 DIPESH FAULKNER Family History Problem Relation Age of Onset Breast cancer Mother Heart disease Father Family Status - Relation Status Age at Mother Father Alive Level of Service:71232 DE OFFICE/OUTPATIENT ESTABLISHED MOD MDM 30 MIN Reason for Visit and Comments: Hypertension [584398] Chest Pain [655657]NormalUnUpper Valley Medical CenterCREATININE, SERUMon 25-20-0149Coerwdbfqz [Mass/Vol]0.68 mg/dLNormal0.60-1.20UnUpper Valley Medical CenterComment on above:Performed By: #### [id number] #### [facility] ([place]) [address] [place], [place] [address]ZUVQWVNIWU FILTRATION RATE ML/MIN/1.73 SQ M.WPXNMXCBE688.5 mL/min/1.73m*2Normal>60.0UnUpper Valley Medical CenterComment on above: Result Comment: [facility]???s estimated glomerular filtration rate (eGFR) will [...] potential consequences that do not disproportionately affect anyone group of individuals.Performed By: #### [id number] #### [facility] ([place]) [address] [place], [place] [address]ZRF HEART CORONARY W IV CONTRAST W OR WO FFRCTon 07-24-0674EMI HEART CORONARY W IV CONTRAST W OR WO FFRCTCTA HEART CORONARY W IV CONTRAST W OR [...] 0. Electronically signed: Nidhi Aldridge MD. Not VldtdInvalid Interpretation CodeUnUpper Valley Medical CenterLabon [id number] Richelle Montes 1965 F Date Provider Department Center 01/25/2025 2245-[facility] OPD LAB RESOURCE [facility] OPD [facility] C Family History Problem Relation Age of Onset Breast cancer Mother Family Status - Relation Status Age at Mother DeceasedNormalUniversSelect Medical Specialty Hospital - CantonPOCT Glucose Fingerstick on 46-35-3398Bzfcmtx [Mass/Vol]114 mg/yTIwemnlbs39 - 99 mg/dLVeterans Health Administration SystemInterpretation and review of laboratory resultsAbnormUniversity of Wisconsin Hospital and Clinics SystemPOCT Hemoglobin A1con 04-75-5119AjL7q (Bld) [Mass fraction]5.9 %4 - 7 %[facility] SystemOffice Visit on 54-40-6891Njjyzz-up [id number] Richelle Montes 1965 F Date Provider Department Center 12/15/2024 [id number] RASCON ALLY [facility] Family History Problem Relation Age of Onset Breast cancer Mother Family Status - Relation Status Age at Mother Level of Service:51829 DE OFFICE/OUTPATIENT NEW MODERATE MDM 45 MINUTES Reason for Visit and Comments: Chest Pain [527418] - Denies chest pain and SOB. Had stress test last week. Hypertension [696085] Hyperlipidemia [182] - Had lipids in Sep 2024NormalUniversSelect Medical Specialty Hospital - CantonCOMPREHENSIVE METABOLIC PANELon 69-67-9006Jlikyvk [Mass/Vol]4.1 g/dLNormal 3.2-5.3ProMedst. vincent's blount [facility] HospitalComment on above:Performed By: #### VALE THYR, 2132-07 #### [facility] ([id number]) [address], [address] [place], [place] [address]FEX [Catalytic activity/Vol]81 U/UCbwnxi30-622LkuMhrfrw [facility] HospitalComment on above:Performed By: #### VALE THYR, 2132-07 #### [facility] ([id number]) [address], [address] [place], [place] [address]YDE [Catalytic activity/Vol]13 U/LNormal0-31ProMedst. vincent's blount Preciado HospitalComment on above:Performed By: #### VALE THYR, 2132-07 #### [facility] ([id number]) [address], [address] [place], [place] [address]Hvaiv gap [Moles/Vol]10 mmol/LNormal5-15ProMedica [facility] HospitalComment on above:Performed By: #### VALE THYLeni, 2132-07 #### [facility] ([id number]) [address], [address] [place], [place] [address]TRB [Catalytic activity/Vol]22 U/LNormal0-41ProMedica [facility] HospitalComment on above:Performed By: #### VALE THYR, 2132-07 #### [facility] ([id number]) [address], [address] [place], [place] [address]Bhmbaknnj [Mass/Vol]0.8 mg/dLNormal0.3-1.2ProMedica Preciado HospitalComment on above:Performed By: #### VALE, THYR, 2132-07 #### [facility] ([id number]) [address], [address] [place], [place] [address]Aabcejk [Mass/Vol]9.0 mg/dLNormal8.5-10.5PPremier Health Miami Valley Hospital SouthComment on above:Performed By: #### VALE THYR, 2132-07 #### [facility] ([id number]) [address], [address] [place], [place] [address]Jncdyukp [Moles/Vol]104 mmol/FDyzquc65-739FstItbndi [facility]edo HospitalComment on above:Performed By: #### VALE THYR, 2132-07 #### [facility] ([id number]) [address] [address] [place], [place] [address]IM5 [Moles/Vol]27 mmol/ZOomxdu92-02HuiRobagmPremier Health [facility] Comment on above:Performed By: #### VALE THYR, 2132-07 #### [facility] ([id number]) [address], [address] [place], [place] [address]Axddayzwpn [Mass/Vol]0.90 mg/dLNormal0.40-1.00ProDunlap Memorial HospitalComment on above:Result Comment: METHOD TRACEABLE TO IDMS STANDARD Performed By: #### VALE THYR, 2132-07 #### [facility] ([id number]) [address], [address] [place], [place] [address]ZNY/1.73 sq M.predicted among non-blacks MDRD (S/P/Bld) [Vol rate/Area]75 mL/min/{1.73_m2}Normal>59ProDunlap Memorial HospitalComment on above: Result Comment: Reported eGFR is based on the CKD-EPI 1 equation that does not use a race coefficient.Performed By: #### VALE, THYR, 2132-07 #### [facility] ([id number]) [address] [place], [place] [address]Zkogznz [Mass/Vol]101 mg/hJKgra33-38IfwIbvfnwParma Community General Hospital Comment on above:Performed By: #### VALE, THYR, 2132-07 #### [facility] ([id number]) [address], [address] [place], [place] [address]Kglycinbd [Moles/Vol]3.8 mmol/LNormal3.5-5.0Pro[facility] HospitalComment on above:Performed By: #### VALE THYR, 2132-07 #### [facility] ([id number]) [address] [place], [place] [address]Xavccmt [Mass/Vol]6.8 g/dLNormal6.0-8.0[facility] [place] [facility] Comment on above:Performed By: #### VALE THYR, 2132-07 #### [facility] ([id number]) [address] [place], [place] [address]Wteifw [Moles/Vol]141 mmol/KHofwdx984-896OyaMtiwij [place] HospitalComment on above:Performed By: #### [facility], 2132-07 #### [facility] ([id number]) [address] [place], [place] [address]Swlr nitrogen [Mass/Vol]22 mg/dLNormal5-23Pro[facility]ica [facility] HospitalComment on above:Performed By: #### VALE, THYR, 2132-07 #### [facility] ([id number]) [address] [facility] [address] [place], [place] [address]UEWYFPKOVCCR - ALBUMIN:CREATININE URINE RATIOon 08-25-2024 ALB/CREAT RATIO12.6 mg/g creatNormal0.0-30.0ProMedica [facility] HospitalComment on above:Performed By: #### MALARTI #### [facility] ([id number]) [address] [place], [place] [address]Pudjtel DL <= 20 mg/L (U) [Mass/Vol]2.3 mg/dLHigh0.0-1.9 [facility] HospitalComment on above:Performed By: #### CEDRIC #### [facility] ([id number]) [address] [place], [place] [address]LEAJC IYTIA560.00 mg/dLNormalParma Community General HospitalComment on above:Performed By: #### CEDRIC #### [facility] ([id number]) [address] [place], [place] [address]VUXO Glucose Fingerstickon 83-74-7422Dhsjhvf [Mass/Vol]145 mg/dL Nliblrxy92 - 99 mg/dLOur Lady of Mercy Hospital - AndersonInterpretation and review of laboratory resultsAbnoRegional Hospital of ScrantonPOCT Hemoglobin A1con 08-14-9017EuM6p (Bld) [Mass fraction]5.7 %4 - 7 %[facility] Administration SystemInterpretation and review of laboratory resultsAbnoRegional Hospital of ScrantonTHYROID PROFILEon 22-83-2796Wuyw T4 [Mass/Vol]1.23 ng/dLNormal0.61-1.60ProDunlap Memorial HospitalComment on above: Performed By: #### VALE, THYR, 2132-07 #### [facility] ([id number]) [address] [place], [place] [address]WOQ4.05 uIU/mLNormal0.49-4.67Par[facility] Community General HospitalComment on above:Performed By: #### VALE, THYR, 2132-07 #### [facility] ([id number]) [address] [place], [place] [address]ACDROEB B12on 40-69-5023Qwtzbpxuj (Vitamin B12) [Mass/Vol]619 pg/jZNofjti469-554OlkEphdiz Toledo HospitalComment on above:Performed By: #### VALE, THYR, 2132-07 #### [facility] ([id number]) [address] [place], [place] [address]YE Foot - left 3 Viewson 66-20-7973Lejpdiw Result: Three views of the left foot: [...] loss of the ends of the toes 2,3,4NOAgnesian HealthCareRadiology Study observation (narrative)[facility] HospitalXR Foot - left 3 Viewson 67-40-5545MJQKGolden Valley Memorial Hospital Imaging Result: Three views of the left foot: AP, MO, LAT were performed today in the office. Radiographs were read by myself and demonstrate: No evidence of acute fracture or dislocation. Narrowing to the tarsometatarsal joint left. 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 There is enlargement and prominence to the distal left 3rd digitNOAgnesian HealthCareRadiology Study observation (narrative)[facility] HealthCT Glucose Fingerstickon 30-96-0874Vkxwtpp [Mass/Vol]94 mg/dL65 - 99 mg/dLFulton County Medical CenterPOCT Hemoglobin A1con 99-70-0252PlO5x (Bld) [Mass fraction]5.5 g/dL4 - 7 g/dLSauk Prairie Memorial Hospital SystemTHYROID PROFILEon 94-28-7008Gcvh T4 [Mass/Vol]1.40 ng/dL Normal0.61-1.60ProDunlap Memorial HospitalComment on above:Performed By: #### THYR #### [facility] ([id number]) [address] [place], [place] [address]YXI6.10 uIU/mLLow0.49-4.67ProDunlap Memorial HospitalComment on above:Performed By: #### THYR #### [facility] ([id number]) [address] [place], [place] [address]LEQKOQKXNFIN - ALBUMIN:CREATININE URINE RATIOon 11-12-2023 ALB/CREAT RATIO13.5 mg/g creatNormal0.0-30.0ProMagruder Memorial HospitalComment on above:Performed By: #### MALBU #### [facility] ([id number]) [address], [address] [place], [place] [address]Ledizzl DL <= 20 mg/L (U) [Mass/Vol]0.7 mg/dLNormal0.0-1.9 [facility] Regional HospitalComment on above:Performed By: #### MALBU #### [facility] ([id number]) [address] [facility], [address] [place], [place] [address]SJOPH CREAT51.79 mg/dLNormalProBlanchard Valley Health System [facility] HospitalComment on above:Performed By: #### MALBU #### [facility] ([id number]) [address] [place] [address], [address] [place], [place] [address]YWTGKRI PROFILEon 31-47-3978Bawz T4 [Mass/Vol]1.37 ng/dLNormal 0.61-1.60ProMagruder Memorial HospitalComment on above:Performed By: #### THYR #### [facility] ([id number]) [address] [place] [address]FHX0.06 uIU/mLLow0.49-4.67ProMagruder Memorial HospitalComment on above:Performed By: #### THYR #### [facility] ([id number]) [address] [place] [address]VYFIbv 84-23-1605TDQXWlhshylkf (RADTSA) RICHELLE MONTES ([id number]) 1965 F Date Time Provider Department 04/06/23 Adam BROOKS During your visit today, we recorded the following information about you: Courtney Schuler LPN 04/06/2023 8:48 AM Signed Richelle called wondering if she needs to continue follow up with Dr. Brooks. She said she completed radiation therapy years ago, 2011. She said Dr. Evans is her pcp and she sees him when she needs to. I explained that if Dr. Brooks agrees to releasing her as a patient that Dr. Evans will need to order her yearly mammograms. Please advise. KRISHNA Geronimo LPN 04/06/2023 3:00 PM Signed I left a message notifying Richelle that she can continue follow up with her PCP. She is due for a bilateral mammogram mid Dec 2023 and she will need her PCP to order it. I encouraged her to call with further questions/concerns. Courtney Schuler LPN Allergies As of Date: 04/06/2023 (No Known Allergies) Date Reviewed: 01/15/2022 Reviewed by: Laurie Suresh RN - Fully Assessed Reason for Visit: Patient Question [3315] Prescriptions as of 04/06/2023 - amLODIPine (NORVASC) [...] cancer [Z85.3] 06/27/2014 Encounter Status:Closed by COURTNEY SCHULER on 04/06/23[facility] MARGARITA CADon [id number] MAMM DIAGNOSTIC 3D MARGARITA CAD Patient: RICHELLE MONTES Robbie Exam Date: 12/21/2022 : 1965 Gender:F Ordering : DR NORA BROOKS M.D. Admission #: [id number] Family : Order #: [id number] CLICK HERE TO VIEW EXAM RADIOLOGY REPORT [...] breast cancer at age 75. LOCATION: [facility] BREAST COMPOSITION: Almost entirely fatty. FINDINGS: [...] by: Jett Magdaleno MD on 12/21/2022 at 13:48NoWexner [facility] Center Covid-[facility] PCR (CVDTBH)on 43-92-8775HTGA-CoV-2 (COVID-19) RNA ERIC+probe Ql (Unsp spec)Not detectedNormalNOT DETECTEDThe [facility] HospitalComment on above:Result Comment: When diagnostic testing is negative, the [...] for this test is supported by the Dive Superintendent of Health and Human Service's declaration that circumstances exist to justify the emergency use of in vitro diagnostics for the detection and/or diagnosis of the virus that causes COVID-19. This EUA will remain in effect for the duration of the COVID-19 declaration justifying emergency of IVDs, unless it is terminated or revoked by the FDA (after which the test may no longer be used).Performed By: #### CVDTBH #### [facility] [address] [place] [address] Dr. Lisbeth Cleaning AND B AGon 21-19-7324YBFIENLIOFBUUHarrison Community HospitalComment on above:Result Comment: Negative for Flu A protein angiten. Infection due to Flu A cannot be ruled out. FluA angiten in the sample may be below the detection limit of the test.Performed By: #### INFLUAB #### [facility] [address] [place] [address] Dr. Lisbeth RamirezINFLUBNEGAkron Children's Hospital on above: Result Comment: Negative for Flu B protein antigen. Infection due to Flu B cannot be ruled out. FluB antigen in the sample may be below the detection limit of the test.Performed By: #### INFLUAB #### [facility] [address] [place] [address] Dr. Lisbeth Cleaning AGNegativeNormalNEGATIVE SEE COMMENTThe [facility] on above:Performed By: #### INFLUAB #### [facility] [address] [place] [address] Dr. Lisbeth Allred AGNegativeNormalNEGATIVE SEE COMMENTThe [facility] HospitalComment on above:Performed By: #### INFLUAB #### [facility] [address] [place] [address] Dr. Lisbeth RaimrezINTERNAL CONTROLSWithin Normal LimitsNormalWithin Normal Limits The [facility] HospitalComment on above:Performed By: #### INFLUAB #### [facility] [address] [place] [address] Dr. Lisbeth RamirezINSULINon 11-02-3946Ugatfqi78.4 uIU/mLCritically high2.6-24.9The Emma HospitalComment on above:Performed By: #### INSULIN #### [facility] [address] [place] [address] Dr. Lisbeth Ching AUTO DIFFon 91-37-2187SLWO #0.1 103/ulNormal0.0-0.1The [facility] HospitalComment on above:Performed By: #### CBC #### [facility] [address] [place] [address] Dr. Lisbeth RamirezBasophils/100 WBC (Bld)0.8 %Normal0.2-2.0The [facility] Comment on above:Performed By: #### CBC #### [facility] [address] [place] [address] Dr. Lisbeth Cagle #0.2 103/ulNormal0.0-0.7The [facility] HospitalComment on above: Performed By: #### CBC #### [facility] [address] [place] [address] Dr. Lisbeth Zaldivarosinophils/100 WBC (Bld)2.5 %Normal0.9-7.0The [facility] Comment on above:Performed By: #### CBC #### [facility] [address] [place] [address] Dr. Lisbeth Zaldivarrythrocyte distribution width (RBC) [Ratio]13.0 %Rgalgf22.0-15.0 The [facility] HospitalComment on above:Performed By: #### CBC #### [facility] [address] [place] [address] Dr. Lisbeth RamirezHematocrit (Bld) [Volume fraction]42.1 %Hhzpty93.0-48.0The [facility] HospitalComment on above:Performed By: #### CBC #### [facility] [address] [place] [address] Dr. Lisbeth RamirezHemoglobin (Bld) [Mass/Vol]14.0 g/bZPojjrx73.0-16.0The [facility] HospitalComment on above:Performed By: #### CBC #### [facility] [address] [place] [address] Dr. Lisbeth Enamorado #0.02 10e3/ulNormal0.00-0.03The [facility] HospitalComment on above:Performed By: #### CBC #### [facility] [address] [place] [address] Dr. Lisbeth Enamorado %0.2 %Normal0.0-0.5The [facility] HospitalComment on above: Performed By: #### CBC #### [facility] [address] [place] [address] Dr. Lisbeth Eastman #1.8 103/ulNormal1.2-3.8The [facility] HospitalComment on above:Performed By: #### CBC #### [facility] [address] [place] [address] Dr. Lisbeth Dempseyhocytes/100 WBC (Bld)20.9 %Zonjbs69.5-60.0The [facility] HospitalComment on above:Performed By: #### CBC #### [facility] [address] [place] [address] Dr. Lisbeth HaydenSOUTHVIEW [facility] DIFF REQNONormalThe [facility] HospitalComment on above: Performed By: #### CBC #### [facility] [address] [place] [address] Dr. Lisbeth Garcia (RBC) [Entitic mass]28.7 wpQsdcry49.7-34.0The [facility] HospitalComment on above:Performed By: #### CBC #### [facility] [address] [place] [address] Dr. Lisbeth Wilkes (RBC) [Mass/Vol]33.3 g/dMJmaciy57.9-35.2The [facility] HospitalComment on above:Performed By: #### CBC #### [facility] [address] [place] [address] Dr. Lisbeth Wilkes (RBC) [Entitic vol]86.4 xLSczzzc54.0-99.0The [facility] HospitalComment on above:Performed By: #### CBC #### [facility] [address] [place] [address] Dr. Lisbeth Sears #0.8 103/ulNormal0.3-0.8The [facility] HospitalComment on above:Performed By: #### CBC #### [facility] [address] [place] [address] Dr. Lisbeth Aliceaocytes/100 WBC (Bld)8.8 %Normal1.7-12.0The [facility] Comment on above:Performed By: #### CBC #### [facility] [address] [place] [address] Dr. Lisbeth Jaramillo #5.8 103/ulNormal1.4-6.5The [facility] HospitalComment on above:Performed By: #### CBC #### [facility] [address] [place] [address] Dr. Lisbeth De La Cruzophils/100 WBC (Bld)66.8 %Oafhby73.0-75.0The [facility] HospitalComment on above:Performed By: #### CBC #### [facility] [address] [place] [address] Dr. Lisbeth Reeder mean volume (Bld) [Entitic vol]10.5 fLNormal9.5-13.5The [facility] HospitalComment on above:Performed By: #### CBC #### [facility] [address] [place] [address] Dr. Lisbeth RamirezPLT222 103/oaKumwrk600-971Zln [facility] HospitalComment on above: Performed By: #### CBC #### [facility] [address] [place] [address] Dr. Lisbeth SampsonC4.87 106/ulNormal4.20-5.40The [facility] HospitalComment on above:Performed By: #### CBC #### [facility] [address] [place] [address] Dr. Lisbeth RamirezWBC8.7 103/ulNormal4.0-11.0The [facility] HospitalComment on above: Performed By: #### CBC #### [facility] [address] [place] [address] Dr. Lisbeth MALLORY INDEX T7on 50-89-2529NKS6.91Phjdqa1.30-4.50The [facility] Mentor Hospitalment on above:Performed By: #### TSH, CMP, LIPID, T7 ####[facility] [address] [place] [address]Dr. Lisbeth RamirezT3U33.0 %Rbctyu53.0-39.0The [facility] HospitalComment on above: Performed By: #### TSH, CMP, LIPID, T7 ####[facility] [address] [place] [address]Dr. Lisbeth RamirezT4 [Mass/Vol]11.50 ug/dLNormal 4.80-13.90The [facility] HospitalComment on above:Performed By: #### TSH, CMP, LIPID, T7 ####[facility] [address] [place] [address]Dr. Lisbeth RamirezGLYCOHEMOGLOBIN A1Con 88-70-2559VKN RECOMMENDATIONSEE BELOW NormalThe [facility] on above:Result Comment: ADA RECOMMENDED LIMIT 4.0 - 6.0 ADA THERAPEUTIC TARGET < 7.0 ACTION SUGGESTED > 7.0Performed By: #### A1C #### [facility] [address] [place] [address] Dr. Lisbeth RamirezGlucose [Mass/Vol]105 mg/dLNormalThe [facility] HospitalComformerly [facility] on above:Performed By: #### A1C #### [facility] [address] [place] [address] Dr. Lisbeth RamirezHbA1c (Bld) [Mass fraction]5.3 %Normal4.5-6.2The [facility] HospitalComment on above:Performed By: #### A1C #### [facility] [address] [place] [address] Dr. Lisbeth Stevenson 47-14-7883Jrad [Mass/Vol]54.0 ug/yPLhjqvx76.0-170.0The [facility] HospitalComment on above:Performed By: #### IRON #### [facility] [address] [place] [address] Dr. Lisbeth RamirezLIPID PROFILEon 88-54-0879EIFN-HDL RATIO NORMSAvita Health System Galion HospitalComment on above:Result Comment: 3.3 - 4.4 LOW RISK 4.4 - 7.1 AVERAGE RISK 7.1 - 11.0 MODERATE RISK >11.0 HIGH RISKPerformed By: #### TSH, CMP, LIPID, T7 ####[facility] [address] [place] [address]Dr. Lisbeth RamirezCholesterol [Mass/Vol]187 mg/dLNormal<=200The [facility] HospitalComment on above:Performed By: #### TSH, CMP, LIPID, T7 ####[facility] [address] [place] [address]Dr. Lisbeth Ramirez Cholesterol in HDL [Mass/Vol]67 mg/dLCritically sfnh24-52MuwSt. Mary'S Medical Center Comment on above:Performed By: #### TSH, CMP, LIPID, T7 ####[facility] [address] [place] [address]Dr. Lisbeth RamirezCholesterol in LDL [Mass/Vol]95.8 mg/dLFostoria City HospitalComment on above:Performed By: #### TSH, CMP, LIPID, T7 ####[facility] [address] [place] [address]Dr. Lisbeth RamirezCholesterol.total/Cholesterol in HDL [Mass ratio]2.8 {ratio}NormalSt. Mary'S Medical CenterComformerly [facility] on above:Performed By: #### TSH, CMP, LIPID, T7 ####[facility] [address] [place] [address]Dr. Lisbeth RamirezHDL NORMAL> or = 60 mg/dl - LOW CARDIOVASCULAR RISK <40 mg/dl - HIGH CARDIOVASCULAR RISKFostoria City HospitalComment on above:Performed By: #### TSH, CMP, LIPID, T7 ####[facility] [address] [place] [address]Dr. Lisbeth RamirezLDL CALC NORMALSEE Glenbeigh HospitalComment on above:Result Comment: <100 mg/dl OPTIMAL 100 - 129 mg/dl NEAR OR ABOVE OPTIMAL 130 - 159 mg/dl BORDERLINE HIGH 160 - 189 mg/dl HIGH >190 mg/dl VERY HIGHPerformed By: #### TSH, CMP, LIPID, T7 ####[facility] [address] [place] [address]Dr. Lisbeth ChangTriglyceride [Mass/Vol]121 mg/dLNormal<=150The [facility] on above:Performed By: #### TSH, CMP, LIPID, T7 ####[facility] [address] [place] [address]Dr. Lisbeth ChangVLDL CALC24.2 mg/dLNormalThe [facility] HospitalComformerly [facility] on above:Performed By: #### TSH, CMP, LIPID, T7 ####[facility] [address] [place] [address]Dr. Lisbeth ChangPROF 14(COMP METB)on 01-90-1599Qtftqqw [Mass/Vol]4.1 g/dLNormal3.4-5.0The [facility] on above:Performed By: #### TSH, CMP, LIPID, T7 ####[facility] [address] [place] [address]Dr. Lisbeth ChangAlbumin/Globulin [Mass ratio]0.9 {ratio}NormalThe [facility] on above:Performed By: #### TSH, CMP, LIPID, T7 ####[facility] [address] [place] [address]Dr. Lisbeth ChangALP [Catalytic activity/Vol]94 U/NXhedrv73-678Vvk [facility] on above:Performed By: #### TSH, CMP, LIPID, T7 ####[facility] [address] [place] [address]Dr. Lisbeth ChangALT [Catalytic activity/Vol]13 U/LCritically vam57-18Nbv [facility] on above:Performed By: #### TSH, CMP, LIPID, T7 ####[facility] [address] [place] [address]Dr. Lisbeth ChangAnion gap [Moles/Vol]11.4 mmol/LNormalThe [facility] HospitalComment on above:Performed By: #### TSH, CMP, LIPID, T7 ####[facility] [address] [place] [address]Dr. Yilan ChangAST [Catalytic activity/Vol]23 U/L Guszro14-63Xvc [facility] HospitalComformerly [facility] on above:Performed By: #### TSH, CMP, LIPID, T7 ####[facility] [address] [place] [address]Dr. Yilan ChangBilirubin [Mass/Vol]0.7 mg/dLNormal0.2-1.0The [facility] HospitalComformerly [facility] on above:Performed By: #### TSH, CMP, LIPID, T7 ####[facility] [address] [place] [address]Dr. Yilan Ramirez Calcium [Mass/Vol]9.5 mg/dLNormal8.5-10.1The [facility] HospitalComformerly [facility] on above: Performed By: #### TSH, CMP, LIPID, T7 ####[facility] [address] [place], [place] [address]Dr. Yilan ChangChloride [Moles/Vol]104 mmol/L Vezwtt93-402Nta [facility] on above:Performed By: #### TSH, CMP, LIPID, T7 ####[facility] [address] [place] [address]Dr. Yilan ChangCO2 [Moles/Vol]25.9 mmol/WIbxqcr20.0-32.0The [facility] on above:Performed By: #### TSH, CMP, LIPID, T7 ####[facility] [address] [place] [address]Dr. Yilan Ramirez Creatinine [Mass/Vol]0.67 mg/dLNormal0.55-1.02The [facility] on above:Performed By: #### TSH, CMP, LIPID, T7 ####[facility] [address] [place] [address]Dr. Yilan ChangEGFR-AF PITCAIRN ISLANDER>60Normal>=60The [facility] Mentor Hospitalment on above:Performed By: #### TSH, CMP, LIPID, T7 ####[facility] [address] [place] [address]Dr. Yilan ChangEGFR-NON AF PITCAIRN ISLANDER>60Normal>=60The [facility] HospitalComment on above:Performed By: #### TSH, CMP, LIPID, T7 ####[facility] [address] [place] [address]Dr. Yilan ChangGlobulin (S) [Mass/Vol]4.2 g/dLNormalThe [facility] HospitalComment on above:Performed By: #### TSH, CMP, LIPID, T7 ####[facility] [address] [place] [address]Dr. Yilan ChangGlucose [Mass/Vol]103 mg/ePUvpwxa90-497Rvj [facility] HospitalComformerly [facility] on above:Performed By: #### TSH, CMP, LIPID, T7 ####[facility] [address] [place], [place] [address]Dr. Yilan ChangPotassium [Moles/Vol]3.6 mmol/LNormal 3.5-5.1The [facility] HospitalComment on above:Performed By: #### TSH, CMP, LIPID, T7 ####[facility] [address] [place], [place] [address]Dr. Yilan ChangProtein [Mass/Vol]8.3 g/dLCritically high6.4-8.2The [facility] on above:Performed By: #### TSH, CMP, LIPID, T7 ####[facility] [address] [place], [place] [address]Dr. Yilan Ramirez Sodium [Moles/Vol]138 mmol/HPkabpv548-052Npm [facility] on above: Performed By: #### TSH, CMP, LIPID, T7 ####[facility] [address] [place], [place] [address]Dr. Yilan ChangUrea nitrogen [Mass/Vol]12.0 mg/dLNormal7.0-18.0The [facility] HospitalComment on above:Performed By: #### TSH, CMP, LIPID, T7 ####[facility] [address] [place], [place] [address]Dr. Yilan ChangUrea nitrogen/Creatinine [Mass ratio]17.9 mg/mgNormal The [facility] HospitalComment on above:Performed By: #### TSH, CMP, LIPID, T7 ####[facility] [address] [place] [address]Dr. Lisbeth ValdiviaHon 07-82-4340EXC5.572 uIU/mLNormal0.358-3.740[facility] Comment on above:Performed By: #### TSH, CMP, LIPID, T7 ####[facility] [address] [address]DrJuliana Gasca (CLEAN/CATCH) ADVERTISING SALES AGENT/MICRO IF IND.on 81-31-2891Zsaoeivdv Ql (U)NegativeNormal NEGATIVESt. Mary'S Medical CenterComment on above:Performed By: #### UACSBLAISE UMICRO #### [facility] [address] [address] [address] Lisbeth RamirezClarity (U)CLEARNormalCLEARSt. Mary'S Medical CenterComment on above: Performed By: #### UACSBLAISE UMICRO #### [facility] [address] [address] [address] Lisbeth Gonzales (U)YELLOWNormalYELLOWSt. Mary'S Medical CenterComment on above: Performed By: #### UACSBLAISE, UMICRO #### [facility] [address] [address] [address] Lisbeth RamirezGlucose Ql (U)NegativeNormalNEGATIVESt. Mary'S Medical CenterComment on above:Performed By: #### UACSIND, UMICRO #### [facility] [address] [address] [address] Lisbeth RamirezHemoglobin Ql (U)MODERATEAbnormalNEGATIVESt. Mary'S Medical [facility] Comment on above:Performed By: #### UACSIND, UMICRO #### [facility] [address] [address] [address] Lisbeth RamirezKetones Ql (U)NegativeNormalNEGATIVESt. Mary'S Medical CenterComment on above:Performed By: #### UACSIND, UMICRO #### [facility] [address] [address] [address] Lisbeth RamirezLEUKOCYTESTRACEAbnormalNEGATIVEThe [facility] HospitalComment on above:Performed By: #### JOSE BARRERARO #### [facility] [address] [address] [address] Lisbeth Aquinotrite Ql (U)NegativeNormalNEGATIVEThe [facility] HospitalComment on above:Performed By: #### JOSE BARRERARO #### [facility] [address] [address] [address] Lisbeth RamirezpH (U)6.0 [pH]Normal5-9The [facility] HospitalComment on above: Performed By: #### JOSE BARRERARO #### [facility] [address] [address] [address] Lisbeth RamirezSPEC GRAVITY1.908Rbudgy3.005-<=1.025The [facility] HospitalComment on above:Performed By: #### JOSE BARRERARO #### [facility] [address] [address] [address] Lisbeth Gasca PROTEINNegativeNormalNEGATIVE/ TRACEThe [facility] Comment on above:Performed By: #### JOSE BARRERARO #### [facility] [address] [address] [address] Lisbeth RamirezUR MICRO INDINDICATEDNormalThe [facility] HospitalComment on above: Performed By: #### JOSE BARRERARO #### [facility] [address] [address] [address] Lisbeth Joshuagen Qn (U)0.2 {Ricci'U}/dLNormal0.2 - 1.0The [facility] HospitalComment on above:Performed By: #### SMITA BARRERAICRO #### [facility] [address] [address] [address] Lisbeth Abdi MICROSCOPIC ONLYon 14-08-9973HREPYLYNLYIZ SEENNormalNONE SEENThe [facility] HospitalComment on above:Performed By: #### JOSHUACSBLAISE UMICRO #### [facility] [address] [address] [address] Lisbeth Morris identified Cx Nom (U)NOT INDICATEDNormalThMartins Ferry HospitalComment on above:Performed By: #### JOSHUACSBLAISE, UMICRO #### [facility] [address] [address] [address] Lisbeth Varma SEENNormalNONE SEENSt. Mary'S Medical CenterComment on above:Performed By: #### JOSHUACSBLAISE, UMICRO #### [facility] [address] [address] [address] Lisbeth Mcintoshystals LM Nom (Urine sed)NONE SEENNormalNONE SEENSt. Mary'S Medical CenterComformerly [facility] on above:Performed By: #### BRUCE UMICRO #### [facility] [address] [address] [address] Bob ChangEpithelial cells LM Ql (Urine sed)FEWAbnormalNONE SEEN /RAREThe [facility] HospitalComment on above:Performed By: #### BRUCE UMICRO #### [facility] [address] [address] [address] Lisbeth TrammellE SEENNormriNONE SEENSt. Mary'S Medical CenterComformerly [facility] on above:Performed By: #### BRUCE UMICRO #### [facility] [address] [address] [address] Lisbeth RamirezRzxjtJAU0-5Bcjrgcrc9-1Gsz [facility] HospitalComment on above:Performed By: #### BRUCE UMICRO #### [facility] [address] [address] [address] Lisbeth RamirezWBC0-2AbnormalNONE SEENSt. Mary'S Medical CenterComformerly [facility] on above: Performed By: #### BRUCE UMICRO #### [facility] [address] [address] [address] Lisbeth RamirezXR knee LT 2Von 11-70-9349IO knee LT [address] [place] [address] XRay Report Signed Patient: Richelle Montes MR#: [id number] : 1965 Acct:[id number] Age/Sex: 56 / F ADM Date: 01/12/22 Loc: SOX Room: Type: [facility] Attending Dr: Heath Silva MD Ordering Provider: Heath Silva MD Date of Service: 01/12/22 XR/XR knee LT 2V: Other tear of medial meniscus, current injury, left knee, lyons Copies to: Heath Sivla MD Left knee 01/12/2022. CLINICAL DATA: Left [...] Carney Jr., M.D.01/12/2022 4:14 PM Dictation Location: [place] [address] Transcribed By: [facility] 01/12/22 1614 Dictated By: Andrea Carney Jr, MD 01/12/22 1608 Signed By: 01/12/22 1614[facility]MG [facility] 3D MARGARITA CADon 10-66-8217SV [facility]AMM DIAGNOSTIC 3D MARGARITA CADPatient: RICHELLE MONTES Exam Date: 01/01/2022 : 1965 Gender:F Ordering : DR NORA BROOKS M.D. Admission #: [id number] Family : Order #: [id number] CLICK HERE TO VIEW EXAM RADIOLOGY REPORT [...] breast cancer at age 75. LOCATION: [facility] BREAST COMPOSITION: Almost entirely fatty. FINDINGS: [...] by: Moshe Castillo M.D. on 01/01/2022 at 15:42[facility] 08-59-0314UBP Qn2.23 uIU/mlNormal0.47-4.68[facility] Care CenterComment on above:Performed By: #### 750, 800, 1000, 1005, 4500, 4520, 4575 #### [facility] Unless Otherwise Noted [address] [place] [address] / COLA #4724/CLIA # [id number] B12on 02-09-4646Fefnaiqda (Vitamin B12) [Mass/Vol]713.0 pg/bNVhtjrm873.0-931.0[facility] Care CenterComment on above:Performed By: #### 750, 800, 1000, 1005, 4500, 4520, 4575 #### [facility] Unless Otherwise Noted [address] [address] / COLA #4724/CLIA # [id number] A1Con 86-79-3247ZeY6c (Bld) [Mass fraction] 5.6 G/DLNormal4.5-6.0[facility] Care CenterComment on above: Performed By: #### 750, 800, 1000, 1005, 4500, 4520, 4575 #### [facility] Unless Otherwise Noted [address] [place] [address] / COLA #4724/CLIA # [id number] 16-68-4540Szpmevv [Mass/Vol]4.4 g/dL Normal3.5-5.0[facility] Care CenterComment on above:Performed By: #### 750, 800, 1000, 1005, 4500, 4520, 4575 #### [facility] Unless Otherwise Noted [address] [place] [address] / COLA #4724/CLIA # [id number] [Catalytic activity/Vol]98.0 U/NYjkdxs78.0-126.0 [facility] Care CenterComment on above:Performed By: #### 750, 800, 1000, 1005, 4500, 4520, 4575 #### [facility] Unless Otherwise Noted [address] [place] [address] / COLA #4724/CLIA # [id number] [Catalytic activity/Vol]16.0 U/FKkzhph60.0-69.0 [facility] Care CenterComment on above:Performed By: #### 750, 800, 1000, 1005, 4500, 4520, 4575 #### [facility] Unless Otherwise Noted [address] [address] / COLA #4724/CLIA # [id number] gap [Moles/Vol]7.0 mmol/LLow10.0-15.0[facility] Care CenterComment on above:Performed By: #### 750, 800, 1000, 1005, 4500, 4520, 4575 #### [facility] Unless Otherwise Noted [address] [place] [address] / COLA #4724/CLIA # [id number] [Catalytic activity/Vol]39.0 U/VAamnrw73.0-46.0 [facility] Care CenterComment on above:Performed By: #### 750, 800, 1000, 1005, 4500, 4520, 4575 #### [facility] Unless Otherwise Noted [address] [place] [address] / COLA #4724/CLIA # [id number] Ql (U)0.40 mg/dLNormal0.20-1.30[facility] Care CenterComment on above:Performed By: #### 750, 800, 1000, 1005, 4500, 4520, 4575 #### [facility] Unless Otherwise Noted [address] [place] [address] / COLA #4724/CLIA # [id number]/Cre Ratio18.8 RatioNormal7.0-27.0[facility] Diabetes Care CenterComment on above:Performed By: #### 750, 800, 1000, 1005, 4500, 4520, 4575 #### [facility] Unless Otherwise Noted [address] [place] [address] / COLA #4724/CLIA # [id number] [Mass/Vol]9.6 mg/dLNormal8.4-10.2[facility] Care CenterComment on above:Performed By: #### 750, 800, 1000, 1005, 4500, 4520, 4575 #### [facility] Unless Otherwise Noted [address] [place] [address] / COLA #4724/CLIA # [id number] [Moles/Vol]107.0 mmol/RUgasub05.0-107.0 [facility] Care CenterComment on above:Performed By: #### 750, 800, 1000, 1005, 4500, 4520, 4575 #### [facility] Unless Otherwise Noted [address] [place] [address] / COLA #4724/CLIA # [id number] [Moles/Vol]28.0 mmol/KLgzdbt78.0-30.0End[facility] Diabetes Care CenterComment on above:Performed By: #### 750, 800, 1000, 1005, 4500, 4520, 4575 #### [facility] Unless Otherwise Noted [address] [place] [address] / COLA #4724/CLIA # [id number] [Mass/Vol]0.8 mg/dLNormal0.5-1.0[facility] Care CenterComment on above:Performed By: #### 750, 800, 1000, 1005, 4500, 4520, 4575 #### [facility] Unless Otherwise Noted [address] [place] [address] / COLA #4724/CLIA # [id number]/1.73 sq M predicted among blacks MDRD (S/P/Bld) [Vol rate/Area]96.9 ml/m1.73NormalEndocrine and Diabetes Care CenterComment on above:Performed By: #### 750, 800, 1000, 1005, 4500, 4520, 4575 #### [facility] Unless Otherwise Noted [address] [place] [address] / COLA #4724/CLIA # [id number]/1.73 sq M predicted among non-blacks MDRD (S/P/Bld) [Vol rate/Area]80.1 ml/m1.73NormalEndocrine and Diabetes Care Center Comment on above:Performed By: #### 750, 800, 1000, 1005, 4500, 4520, 4575 #### [facility] Unless Otherwise Noted [address] [place] [address] / COLA #4724/CLIA # [id number]/1.73 sq M predicted among non-blacks MDRD (S/P/Bld) [Vol rate/Area]139.1 ml/m1.73NormBanner Cardon Children's Medical Centerndocrine and Diabetes Care Center Comment on above:Performed By: #### 750, 800, 1000, 1005, 4500, 4520, 4575 #### [facility] Unless Otherwise Noted [address] [place] [address] / COLA #4724/CLIA # [id number] [Mass/Vol]91.0 mg/aIRarbxv04.0-106.0 [facility] Care CenterComment on above:Performed By: #### 750, 800, 1000, 1005, 4500, 4520, 4575 #### [facility] Unless Otherwise Noted [address] [place] [address] / COLA #4724/CLIA # [id number] [Moles/Vol]3.9 mmol/LNormal3.5-5.1 [facility] Care CenterComment on above:Performed By: #### 750, 800, 1000, 1005, 4500, 4520, 4575 #### [facility] Unless Otherwise Noted [address] [place] [address] / COLA #4724/CLIA # [id number] [Mass/Vol]7.6 g/dLNormal6.3-8.2Endocrine [facility] Diabetes Care CenterComment on above:Performed By: #### 750, 800, 1000, 1005, 4500, 4520, 4575 #### [facility] Unless Otherwise Noted [address] [place] [address] / COLA #4724/CLIA # [id number] [Moles/Vol]142.0 mmol/IMoifaz997.0-145.0 [facility] Diabetes Care CenterComment on above:Performed By: #### 750, 800, 1000, 1005, 4500, 4520, 4575 #### [facility] Unless Otherwise Noted [address] [place] [address] / COLA #4724/CLIA # [id number] nitrogen [Mass/Vol]15.0 mg/dLNormal7.0-17.0 [facility] Care CenterComment on above:Performed By: #### 750, 800, 1000, 1005, 4500, 4520, 4575 #### [facility] Unless Otherwise Noted [address] [place] [address] / COLA #4724/CLIA # [id number] 91-88-4002Xwzh T4 [Mass/Vol]1.10 ng/dLNormal 0.64-1.79End[facility] Diabetes Care CenterComment on above:Performed By: #### 750, 800, 1000, 1005, 4500, 4520, 4575 #### [facility] Unless Otherwise Noted [address] [address] / COLA #4724/CLIA # [id number] 24-04-6269Ugzkwvobeta [Mass/Vol]209.0 mg/dL High0.0-199.0[facility] Diabetes Care CenterComment on above:Performed By: #### 750, 800, 1000, 1005, 4500, 4520, 4575 #### [facility] Unless Otherwise Noted [address] [place] [address] / COLA #4724/CLIA # [id number] in HDL [Mass/Vol]66.0 mg/fJNlei26.0-60.0 [facility] Diabetes Care CenterComment on above:Performed By: #### 750, 800, 1000, 1005, 4500, 4520, 4575 #### [facility] Unless Otherwise Noted [address] [place] [address] / COLA #4724/CLIA # [id number] in LDL [Mass/Vol]118.4 mg/dLHigh 0.0-100.0[facility] Diabetes Care CenterComment on above:Performed By: #### 750, 800, 1000, 1005, 4500, 4520, 4575 #### [facility] Unless Otherwise Noted [address] [address] / COLA #4724/CLIA # [id number] in VLDL [Mass/Vol]24.6 mg/dLNormal [facility] Diabetes Care CenterComment on above:Performed By: #### 750, 800, 1000, 1005, 4500, 4520, 4575 #### [facility] Unless Otherwise Noted [address] [place] [address] / COLA #4724/CLIA # [id number].total/Cholesterol in HDL [Mass ratio]3.2 {ratio}NormalEndocrine and Diabetes Care CenterComment on above:Performed By: #### 750, 800, 1000, 1005, 4500, 4520, 4575 #### [facility] Unless Otherwise Noted [address] [place] [address] / COLA #4724/CLIA # [id number] [Mass/Vol]123.0 mg/dLNormal0.0-150.0 [facility] Care CenterComment on above:Performed By: #### 750, 800, 1000, 1005, 4500, 4520, 4575 #### [facility] Unless Otherwise Noted [address] [place] [address] / COLA #4724/CLIA # [id number] MICROALBUMINon 89-77-7060Lerevivyqz (U) [Mass/Vol]128.3 mg/dLNormalEndocrine and Diabetes Care CenterComment on above: Performed By: #### 750, 800, 1000, 1005, 4500, 4520, 4575 #### [facility] Unless Otherwise Noted [address] [place] [address] / COLA #4724/CLIA # [id number] mg/LHigh0.0-30.0[facility] Diabetes Care CenterComment on above:Performed By: #### 750, 800, 1000, 1005, 4500, 4520, 4575 #### [facility] Unless Otherwise Noted [address] [facility] [address] [place] [address] / COLA #4724/CLIA # [id number] A/C Ratio28.8 mg/gNormal0.0-30.0[facility]ocrine [facility] Diabetes Care CenterComment on above:Performed By: #### 750, 800, 1000, 1005, 4500, 4520, 4575 #### [facility] Unless Otherwise Noted [address] [facility] [address] [place] [address] / COLA #4724/CLIA # [id number] Vital Signs Date TimeVital SignValuePerforming TcqjorkydOpmhnkgj67-04-9385 16:12-0400Body ctzyeb869.48 cmChacha Evans MD Work Phone: [phone]08-18-2025 16:12-0400 Body mass index (BMI) [Ratio]42.6 kg/y5ZkfduspChacha Evans MD Work Phone: [phone]08-18-2025 16:12-0400 Body berpwg925.68 kgChacha Evans MD Work Phone: [phone] [place], [place] [address]208-18-2025 16:12-0400 Diastolic blood oeevwsaz971 mm[Hg]Chacha Evans MD Work Phone: [phone]08-18-2025 16:12-0400 Heart rate88 /Mami Evans MD Work Phone: [phone]08-18-2025 16:12-0400 Respiratory rate18 /Mami Evans MD Work Phone: [phone]08-18-2025 16:12-0400 SaO2% (BldA) [Mass fraction]99 %Chacha Evans MD Work Phone: [phone]08-18-2025 16:12-0400 Systolic blood aziugwbx760 mm[Hg]Chacha Evans MD Work Phone: [facility]02-21-2025 13:47-0500 Body mass index (BMI) [Ratio]44.07 kg/e0FdtnkqFaheem Rock MARKET INTELLIGENCE CONSULTANT-METAL TEMPLATE MAKER Work Phone: [phone]02-21-2025 13:47-0500Body xogijf741.32 kgFaheem Rock MARKET INTELLIGENCE CONSULTANT-METAL TEMPLATE MAKER Work Phone: [phone]02-21-2025 13:47-0500Diastolic blood mm[Hg]Faheem Rock MARKET INTELLIGENCE CONSULTANT-METAL TEMPLATE MAKER Work Phone: [phone] [place], [place] [address]02-21-2025 13:47-0500Heart rate 91 /minFaheem Rock MARKET INTELLIGENCE CONSULTANT-METAL TEMPLATE MAKER Work Phone: [phone]02-21-2025 13:47-0500Systolic blood vywnlzrj464 mm[Hg]Faheem Rock MARKET INTELLIGENCE CONSULTANT-METAL TEMPLATE MAKER Work Phone: [phone] [place], [place] 275[address]10-18-2024 12:39-0400Body mass index (BMI) [Ratio]43.48 kg/p3CcezbvFaheem Rock MARKET INTELLIGENCE CONSULTANT-METAL TEMPLATE MAKER Work Phone: [phone]10-18-2024 12:39-0400Body ecxuid685.86 kgFaheem Rock MARKET INTELLIGENCE CONSULTANT-METAL TEMPLATE MAKER Work Phone: [phone] [place], [place] 275[address]10-18-2024 12:39-0400Diastolic blood yyhagdga16 mm[Hg]Faheem Rock MARKET INTELLIGENCE CONSULTANT-METAL TEMPLATE MAKER Work Phone: [phone] [place], [place] 275[address]10-18-2024 12:39-0400Heart rate 88 /minFaheem Rock MARKET INTELLIGENCE CONSULTANT-METAL TEMPLATE MAKER Work Phone: [phone] [place] [address] [employer] Ghzspk61-73-0697 12:39-0400Systolic blood qaozjelf925 mm[Hg]Faheem Rock MARKET INTELLIGENCE CONSULTANT-METAL TEMPLATE MAKER Work Phone: [phone] [place], [place] 275[address]08-27-2024 16:34-0400Diastolic blood ljbymhrw21 mm[Hg]Alma Street DO Work Phone: [facility] HospitalHdqadlxvwq40-67-8896 16:34-0400Heart rate88 /min [address]ma Street DO Work Phone: noFreeman [facility]opa[facility]ics & Sports MedicineZnintjmgsv25-01-3960 16:34-6230EqS4% (BldA) [Mass fraction]98 %Alma Street DO Work Phone: noFreeman Orthopaedics & Sports MedicineIpxsyxdtxx96-99-2933 16:34-0400Systolic blood mm[Hg]Alma Street DO Work Phone: [facility] HospitalGbjjsyxtaf94-75-7646 12:05-0400Body mass index (BMI) [Ratio]42.53 kg/e1BvepwNadia Sotomayor MD Work Phone: [phone] [place], [place] [address]04-26-2024 12:05-0400Body jlxwec058.51 kgNadia Sotomayor MD Work Phone: [phone] [place], [place] [address]04-26-2024 12:05-0400Diastolic blood nyfojfpg05 mm[Hg]Nadia Sotomayor MD Work Phone: [phone] [place], [place] [address]evidanza Xdilzf41-72-2416 12:05-0400Heart rate 73 /minNadia Sotomayor MD Work Phone: [phone] [place] [address] [employer] Gbhegs14-65-4189 12:05-0400Systolic blood uihwswze939 mm[Hg]Nadia Sotomayor MD Work Phone: [phone] [place], [place] [address]ev[employer]anza Lhlgdg99-25-6663 16:00-0500Body uonbvz977.48 cmThomas Olexa Other [employer] Other 03-07-2022 16:00-0500Body mass index (BMI) [Ratio] 45.17 kg/p1Nnuudx [employer] Other [employer] Other 03-07-2022 16:00-0500Body vgarqa476.04 kgThomas Olexa Other [employer] Other 12-28-2021 10:00-0500Body hogccx222.48 cmThomas Olexa Other [employer] Other 12-28-2021 10:00-0500Body mass index (BMI) [Ratio] 46.82 kg/t3Djmyfk [employer] Other [employer] Other 12-28-2021 10:00-0500Body .12 kgThomas Olexa Other [employer] Other 12-07-2021 14:30-0500Body deghre028.48 cmThomas Olexa Other [employer] Other 12-07-2021 14:30-0500Body mass index (BMI) [Ratio] 46.16 kg/o2Zxxivf [employer] Other [employer] Other 12-07-2021 14:30-0500Body fwstra270.49 kgThomas Olexa Other [employer] Other 07-12-2019 18:58-0400Body nlescv436.1 KgEndocrine and Diabetes Care CenterComment on above:Performed By: #### 750, 800, 1000, 1005, 4500, 4520, 4575 #### [facility] Unless Otherwise Noted [address] [place] [address] / COLBlack #4724/ANTONY # [id number] Encounters Encounter DateEncounter TypeCare ProviderFacilityStart: 09-18-2025 End: 04-05-6888MkyuoiIsdqtcWilfred Mcgill Adult Endocrinology, A Department of [facility] Medical CenteredicLake County Memorial Hospital - WestComment on above:Postablative hypothyroidismStart: 09-17-2025 End: 59-53-7125Dvbxge follow up visit related to original Mattie Hinojosa DPM Work Phone: [facility] PodiatryComment on above:Surgery follow- up examination (Primary Dx)Start: 09-17-2025 End: 26-77-2213heogsxwkgrKBXBQXWEX H SMITHNot AvailableStart: 09-17-2025 End: 06-30-5179Pmhdwj flowsGallo Hinojosa DPM Work Phone: [facility]iatryStart: 09-17-2025 End: 57-21-5565Amqqaz flowsheetJosue Hinojosa DPM Work Phone: [facility] [place] PodiatryStart: 09-04-2025 End: 69-87-8742rwhyoundvoTFVHIZEMW H SMITHNot AvailableStart: 09-04-2025 End: 47-29-5796Llgbul outpatient visit 15 minutesCaalfonso Hinojosa DPM Work Phone: [facility] [place] PodiatryComment on above:Tailor's bunion of right foot (Primary Dx); Right foot painStart: 09-04-2025 End: 66-71-4897Teagvy flowsGallo Hinojosa DPM Work Phone: [facility] [place] PodiatryStart: 09-04-2025 End: 36-73-3095Yicqji Araceli Hinojosa DPM Work Phone: [facility] [place] PodiatryStart: 08-17-2025 End: 37-06-1876roovzsilphGAMWBKindred Healthcaretart: 08-15-2025 End: 68-05-3173Iohhmgkyw encounterMataz VALDEZ Work Phone: [facility] [place] OrthopaedicsComment on above:Med Refill Start: 07-30-2025 End: 22-70-6457Rfyeldl encounter procedureJosue Hinojosa DPM Work Phone: noMS [place] PodiatryComment on above:Corns and callosities (Primary Dx); Pain in both feet; Onychomycosis; Type 2 diabetes mellitus without complication, without long-term current use of insulin (HCC)Start: 07-30-2025 End: 41-69-1565rzxzzdsrdtTWXZIBKNC H SMITHNot AvailableStart: 07-30-2025 End: 14-42-7586Pzpugs Araceli Hinojosa DPM Work Phone: [facility]iatryStart: 07-30-2025 End: 65-86-1727Kgpfzs Araceli Hinojosa DPM Work Phone: [facility]iatryStart: 06-25-2025 End: 37-12-8418sexxeuccjhLlzunte M Hoy MD Work Phone: [facility] Work Phone: Start: 06-25-2025 End: 64-96-7455Dzuuwke encounter procedureNicevelyn Schroeder [facility] Neurology Work Phone: Start: 06-19-2025 End: 95-40-7951FkyvwlDotnpe Hook LPNPLallie Kemp Regional Medical Centerrosio Adult Endocrinology, A Department of [facility] HospitalComment on above:Postablative hypothyroidismStart: 04-19-2025 End: 69-77-3415rfmfecnkphOZIJQBWGJ H SMITHNot AvailableStart: 04-19-2025 End: 80-19-0235Pxqxvfn encounter procedureJosue Hinojosa DPM Work Phone: noms [facility] PODIATRYComment on above:Corns and callosities (Primary Dx); Pain in both feet; Type 2 diabetes mellitus without complication, without long-term current use of insulin (HCC); OnychomycosisStart: 04-19-2025 End: 88-09-8730Wcgbod Araceli BRYANM Work Phone: noms [facility] PODIATRYStart: 04-19-2025 End: 57-45-6537Lvdrzp Araceli Hinojosa DPM Work Phone: [facility] PODIATRYStart: 03-18-2025 End: 25-34-4377XqdhxxDfkbjuJennifer Rock APRN-METAL TEMPLATE MAKER Work Phone: [facility] Adult EndocrinologyComment on above:Postablative hypothyroidismStart: 02-26-2025 End: 98-42-4086Sxcygu outpatient visit 15 minutesCaalfonso BRYANM Work Phone: [facility]oms [facility] PODIATRYComment on above:Osteoarthritis of midtarsal joint of left foot (Primary Dx); Osteoarthritis of right ankle and foot; Pain in both feet; Tailor's bunion of right footStart: 02-26-2025 End: 47-19-2858rmfvtvhkwsAXAYXESXP H SMITHNot AvailableStart: 02-26-2025 End: 11-36-8751Sqsoqv flowsGallo Hinojosa DPM Work Phone: noms [facility] PODIATRYStart: 02-26-2025 End: 69-69-9937Wpycrf flowsGallo Hinojosa DPM Work Phone: noms [facility] PODIATRYStart: 02-05-2025 End: 12-05-8671zyqxmxxmybXXAPTBarnesville Hospitaltart: 01-25-2025 End: 38-04-1340prpfennspsTTNLKBarnesville Hospitaltart: 01-10-2025 End: 27-77-9424azdptrxbdcNTBQHDSCU H SMITHNot AvailableStart: 01-10-2025 End: 53-91-5103Zbicpds encounter procedureJosue Hinojosa DPM Work Phone: noms [facility] PODIATRYComment on above:Onychomycosis (Primary Dx); Corns and callosities; Pain in both feet; Type 2 diabetes mellitus without complication, without long-term current use of insulin ([facility])Start: 01-10-2025 End: 47-04-2741Kmoyua flowsGallo Hinojosa DPM Work Phone: noms [facility] PODIATRYStart: 01-10-2025 End: 19-28-1786Udjaku Araceli Hinojosa DPM Work Phone: noms [facility] PODIATRYStart: 12-29-2024 End: 34-45-7584Ijulqz outpatient visit 25 minutesFaheem Alexandre Yuriy MARKET INTELLIGENCE CONSULTANT-METAL TEMPLATE MAKER Work Phone: proMedst. [facility], A Department of [facility] HospitalComment on above:Type 2 diabetes mellitus without complication, without long-term current use of insulin ([facility]) (Primary Dx); Postablative hypothyroidismStart: 12-29-2024 End: 79-13-1408wxlbljtbunWPEZQR J. PHILLIPSKettering Memorial Hospitaltart: 12-15-2024 End: 26-46-5386phggvmixhcLRKURKindred Healthcaretart: 11-20-2024 End: 83-18-1731Tvtkcoqfg encounterMattstew VALDEZ Work Phone: noms [facility] ORTHOComment on above:dentistStart: 11-02-2024 End: 54-22-1016Hhgjkt Araceli Hinojosa DPM Work Phone: noms [facility] PODIATRYStart: 11-02-2024 End: 04-59-8124Cwilxq Araceli Hinojosa DPM Work Phone: noms [facility] PODIATRYStart: 11-02-2024 End: 03-47-7557Nkxhqs follow up visit related to original Mattie Hinojosa DPM Work Phone: noms [facility] PODIATRYComment on above:Surgery follow-up examination (Primary Dx); Exostosis of left foot; Osteoarthritis of midtarsal joint of left foot; Osteoarthritis of right ankle and foot; Onychomycosis; Corns and callosities; Pain in both feet; Type 2 diabetes mellitus without complication, without long-term current use of insulin ([facility])Start: 11-02-2024 End: 37-65-0942bwckidgiodXQCNZUPEA H SMITHNot AvailableStart: 10-09-2024 End: 74-80-6875mkuirwcgwaICBFHTWBD H SMITHNot AvailableStart: 10-09-2024 End: 28-51-2131Epdidr follow up visit related to original Mattie Hinojosa DPM Work Phone: NOMS [facility] PODIATRYComment on above:Surgery follow-up examination (Primary Dx); Exostosis of left foot; Left foot painStart: 10-09-2024 End: 06-76-9705Rrjhif flowsGallo Hinojosa DPM Work Phone: NOMS [facility] PODIATRYStart: 10-09-2024 End: 68-47-4061Qzjdti flowsGallo Ngo Hinojosa DPM Work Phone: NOMS [facility] PODIATRYStart: 09-19-2024 End: 57-02-7431RokdmaAkiwhr J Phillips MARKET INTELLIGENCE CONSULTANT-SNADEC Work Phone: piLikest. vincent's blount Physicians Adult EndocrinologyComment on above:Postablative hypothyroidismStart: 09-04-2024 End: 13-23-1709Ekepsc follow up visit related to original Mattie Hinojosa DPM Work Phone: NOMS [facility] PODIATRYComment on above:Surgery follow-up examination (Primary Dx); Exostosis of left foot; Left foot painStart: 09-04-2024 End: 57-94-0855Jyetkp flowsGallo Hinojosa DPM Work Phone: NOMS [facility] PODIATRYStart: 09-04-2024 End: 49-92-6171Ygbedv flowsheetJosue Ngo Hinojosa DPM Work Phone: NOMS [facility] PODIATRYStart: 08-25-2024 End: 50-22-4464hirwpxjavlIKUWAZU M HOYProMedAshtabula General Hospital HospitalStart: 08-25-2024 End: 99-67-7865Gznmpg outpatient visit 25 [facility] medical centerFaheem Rock MARKET INTELLIGENCE CONSULTANT-METAL TEMPLATE MAKER Work Phone: pLallie Kemp Regional Medical CenterVenueJam Physicians Adult EndocrinologyComment on above:Type 2 diabetes mellitus without complication, without long-term current use of insulin ([facility]) (Primary Dx); Postablative hypothyroidismStart: 08-25-2024 End: 25-09-4444yyirsoubytQSBLRI [facility] Start: 08-21-2024 End: 33-33-3953Rgdpbk follow up visit related to original Mattie Hinojosa DPM Work Phone: noms SWS PODIATRYComment on above:Surgery follow-up examination (Primary Dx); Exostosis of left foot; Left foot painStart: 08-21-2024 End: 73-51-5296Bcmiod flowsheetJosue Ngo Hinojosa DPM Work Phone: noms SWS PODIATRYStart: 08-21-2024 End: 45-12-3981Qjbajz flowsheetJosue Ngo Hinojosa DPM Work Phone: noms SWS PODIATRYStart: 08-20-2024 End: 36-08-9894YqdlilWcelnt J Phillips MARKET INTELLIGENCE CONSULTANT-METAL TEMPLATE MAKER Work Phone: pW[facility] Physicians Adult EndocrinologyComment on above:Type 2 diabetes mellitus without complication, without long-term current use of insulin ([facility])Start: 08-16-2024 End: 22-48-7047Thkena outpatient visit 15 minutesMataz VALDEZ Work Phone: noms FB ORTHOPAEDICSComment on above:Acute pain of left knee (Primary Dx); History of left knee replacementStart: 08-16-2024 End: 78-53-2499Tircst Mark VALDEZ Work Phone: noms FB ORTHOPAEDICSStart: 08-16-2024 End: 24-88-1646Juqkdc Mark VALDEZ Work Phone: noms FB ORTHOPAEDICSStart: 08-14-2024 End: 95-80-3590Wwuknl follow up visit related to original Mattie Ngo Hinojosa DPM Work Phone: noms SWS PODIATRYComment on above:Surgery follow-up examination (Primary Dx); Exostosis of left foot; Left foot painStart: 08-14-2024 End: 66-04-0735Djhors flowsheetJosue Hinojosa DPM Work Phone: noms [facility] PODIATRYStart: 08-14-2024 End: 42-25-7447Fsvvje flowsheetJosue Hinojosa DPM Work Phone: noms [facility] PODIATRYStart: 08-10-2024 End: 24-98-2549Zoakdi flowsheetJosue Hinojosa DPM Work Phone: noms [facility] PODIATRYStart: 08-10-2024 End: 94-38-3132Gtoaeh flowsheetJosue Hinojosa DPM Work Phone: noms [facility] PODIATRYStart: 08-10-2024 End: 20-23-5034Djvxjv outpatient visit 15 minutesCaalfonso Hinojosa DPM Work Phone: noms [facility] PODIATRYComment on above:Exostosis of left foot (Primary Dx); Left foot pain; Osteoarthritis of midtarsal joint of left foot; Osteoarthritis of right ankle and footStart: 07-24-2024 End: 33-40-3111Zhgprim encounter procedureJosue Hinojosa DPM Work Phone: noms [facility] PODIATRYComment on above:Onychomycosis (Primary Dx); Pain in both feet; Corns and callositiesStart: 07-24-2024 End: 97-04-5598Vurspn flowsGallo Hinojosa DPM Work Phone: noms [facility] PODIATRYStart: 07-24-2024 End: 88-71-8324Fxafhl flowsheetJosue Hinojosa DPM Work Phone: noms [facility] PODIATRYStart: 07-04-2024 End: 38-22-1372Pzmczl outpatient visit 15 minutesNicole Yenifer DO Work Phone: noms [facility] ROUTEComment on above:Insomnia, unspecified type; Chronic migraine without aura without status migrainosus, not intractable ([facility]); Tension headache; Primary insomniaStart: 07-04-2024 End: 55-77-9474Qflkmh flowsheetNicole Yenifer DO Work Phone: noms [facility] ROUTEStart: 07-04-2024 End: 52-46-5756Ypecze flowsheetNicole Yenifer DO Work Phone: noms [facility] ROUTEStart: 03-03-2024 End: 44-19-3848jdzzckeuqgFXKNQ E [facility]CHINSONBl[facility] Start: 03-03-2024 End: 99-98-3120Ridkcq outpatient visit 25 minutesNadia Sotomayor MD Work Phone: piLikelyt Physicians Adult EndocrinologyComment on above:Type 2 diabetes mellitus without complication, without long-term current use of insulin ([facility]) (Primary Dx); Postablative hypothyroidismStart: 11-26-2023 End: 37-43-0848Bhsjamw encounter procedureJosue Hinojosa DPM Work Phone: NONA EXT DEPComment on above:Primary osteoarthritis, left ankle and foot (Primary Dx); Primary osteoarthritis, right ankle and footStart: 22-80-2698Cgvcas Ruperto Rock MARKET INTELLIGENCE CONSULTANT-METAL TEMPLATE MAKER Work Phone: piLikewnl Physicians Adult EndocrinologyComment on above:Postablative hypothyroidism (Primary Dx)Start: 11-12-2023 End: 43-51-4481omiucfuwhjOBQOGG J PHILLIPSAkron Children's Hospital Start: 67-29-5686Jogsnebnh encounterG Yuir Brooks MD Work Phone: Radiation OncologyComment on above:Patient Question Start: 12-21-2022 End: 95-57-5566gaediylexwGS NORA MOSHERRFacility:L2Vabsj: 09-28-2022 End: 38-68-2811rwqjuzjjlcIH CHACHA EVANSFacility:R4Zxisz: 32-45-9676Nsczejcjl for general adult medical examination without abnormal findingsDR CHACHA Arreolae [facility] HospitalStart: 08-28-2022 End: 99-47-6582yttwvitpqmNJ CHACHA HOYFacility:C1Ugutr: 08-28-2022 End: 02-53-2630Hmqjzjsdb for general adult medical examination without abnormal findingsDR CHACHA HOYFacility:G8Wvjbe: 45-79-9885Wswqzzthf for other preprocedural examinationDR DOCTOR ELMORECTtaryn [facility] HospitalStart: 06-10-2022 End: 75-22-4304okgxtyrozyUT CHACHA HOYFacility:N5Dxsfn: 06-10-2022 End: 13-42-7030Udjrborqk for other preprocedural examinationDR CHACHA HOY Facility:P8Ciqtg: 02-03-2022 End: 50-28-3425drpmgxitifUhrhgf Olexa Other [employer] Other Start: 47-72-9186Shjsnc outpatient visit 15 minutes Heath [facility]aval[facility]ky [facility] BellevueStart: 01-12-2022 End: 14-78-2167jghdphgkucIxgecl Olexa Other [employer] Other Start: 22-35-5704Gviwqs outpatient visit 15 minutes Heath [facility] OrthopedicsStart: 01-01-2022 End: 04-49-3146fpcuescrokYQ CHACHA HOYFacility:I7Pxmtk: 11-04-2021 End: 03-88-4053wewnthpytaCnglke Olexa Other [employer] Other Start: 23-85-2251Upgwwg outpatient visit 15 minutes Heath Gtzy OrthopedicsStart: 10-14-2021 End: 71-10-6245xieclaxjyxJdazvr Olexa Other [employer] Other Start: 02-90-9897Qkssju outpatient visit 15 minutes Heath Reyna [place] [facility] BellevueStart: 09-11-2021 End: 77-10-8258dhkarghfwcUprhfm Olexa Other [employer] Other Start: 82-40-2466Dlfyopuhg encounterThomas OlexaLOREE Rojas OrthopedicsStart: 10-24-2018 End: 78-61-0543Gajhhrc encounter procedureDEFAULT PHYSICIANFacility:UTMCStart: 14-16-4744Ilevoef encounter procedureFaheem Rock MARKET INTELLIGENCE CONSULTANT-METAL TEMPLATE MAKER Work Phone: pR[facility] Procedures DateProcedureProcedure DetailPerforming ClinicianStart: 75-75-1330Xnksu foot complete minimum 3 viewsJosue Hinojosa DPM Work Phone: start: 12-29-2024 End: 69-96-2836Oftc bld gluc mntr dev cleared fda spec home useFaheem Rock MARKET INTELLIGENCE CONSULTANT-METAL TEMPLATE MAKER Work Phone: start: 85-19-8715Sofg bld gluc mntr dev cleared fda spec home useFaheem Rock MARKET INTELLIGENCE CONSULTANT-METAL TEMPLATE MAKER Work Phone: start: 52-94-5963Jmkxjgqjozre [Mass/volume] in Urine by Test stripFaheem Rock MARKET INTELLIGENCE CONSULTANT-METAL TEMPLATE MAKER Work Phone: start: 52-85-6478Yktqt foot complete minimum 3 views Josue Hinojosa DPM Work Phone: start: 72-10-9403Afvri foot complete minimum 3 views Josue Hinojosa DPM Work Phone: start: 03-03-2024 End: 70-50-5625Nunb bld gluc mntr dev cleared fda spec home useNadia Sotomayor MD Work Phone: start: 19-95-6275Yhtkdulelvav [Mass/volume] in Urine by Test stripFaheem Rock MARKET INTELLIGENCE CONSULTANT-METAL TEMPLATE MAKER Work Phone: start: 19-11-2850WvrsiqbydazUhaszhjms Smith DPM Work Phone: History of operative procedure on kneeHistory of left knee replacementAgapitotaz Alexandre Morales VALDEZ Work Phone: History of operative procedure on kneeHistory of left knee replacementMataz Alexandre Morales VALDEZ Work Phone: History of operative procedure on kneeHistory of left knee replacementAgapitofaithstew Schroeder Morales VALDEZ Work Phone: Plan of Treatment DateCare ActivityDetailAuthorStart: 64-55-0680Vohjz BMI ScreeningAdult BMI ScreeningVeterans Health Administration SystemStart: 60-62-6054Blzbzoue foot examination Diabetic Foot ExamProDunlap Memorial Hospital SystemStart: 68-81-5831Xytbwg Use: Diabetic Statin Use: DiabeticVeterans Health Administration SystemStart: 99-22-5610Vutmxak Screening Tobacco ScreeningAdventHealth Hendersonvilletart: 11-05-2025 End: 58-28-5255Mjgxaun encounter ynqnfruty83/29/2025 4:30 PM EST Procedure Visit [facility] [address] [place] [address] Josue Hinojosa DPM [address] [place] [address] PANDA [facility] PodiatryStart: 09-21-2025 End: 97-82-5759Usqzzol encounter vcnwhjygi85/14/2025 11:30 AM EST Office Visit [facility] [address] [place] [address] Chris Nielsen PA [address] [place] [address] [facility] OrthopaedicsStart: 09-17-2025 End: 83-06-3898Osyzciv encounter procedureNOMS Rojas PodiatryComment on above:ArrivedStart: 09-04-2025 End: 88-41-3199Orbbuia encounter ucrerecsq21/28/2025 4:45 PM EDT Office Visit [facility] Podiatrluis felipe [address] [place] [address] Josue Hinojosa DPSerge [address] [facility] [address] [place] [address] MARINOJohn Rojas PodiatryStart: 08-25-2025 Adult BMI ScreeningAdult BMI ScreeningProDunlap Memorial Hospital SystemStart: 08-25-2025 Diabetic foot examinationDiabetic Foot ExamProDunlap Memorial Hospital SystemStart: 84-44-0543Fhasulb ScreeningTobacco ScreeningProDunlap Memorial Hospital SystemStart: 98-36-0405Uyurp screening for proteinUrine MicroalbuminOur Lady of Mercy Hospital - [facility] Start: 08-17-2025 End: 86-33-9067Inwgeet encounter tghoelywh12/10/2025 11:30 AM EDT Office Visit [facility] [address] [place] [address] Chris Nielsen, COURTNEY [address] [facility] [address] [place] [address] NOMJohn FB ORTHOPAEDICSStart: 07-30-2025 End: 29-41-2795Nkczwwa encounter ckrcnckuy99/22/2025 4:00 PM EDT Procedure Visit [facility]John [facility] [address] [facility] [address] [place] [address] Josue Hinojosa DPM [address] [facility] [address] [place] [address] ArrivedPANDA Rojas PodiatryComment on above:ArrivedStart: 27-30-6169TDIPY-19 Vaccine ( season)COVID-19 Vaccine ( season)NOMS HealthcareStart: 32-88-8761Ceitijogw vaccinationNOKY HealthcareStart: 06-11-2025 End: 33-95-3594Iqjszeo encounter gbhmsbpmy07/04/2025 3:30 PM EDT Office Visit [facility] [address] [place] [address] Nadia Sotomayor MD [address] [facility] [address] [place] [address] [facility], A Department of [facility] Start: 04-27-2025 End: 35-08-5383Usvgoce encounter procedureProMedica Physicians Adult EndocrinologyStart: 04-25-2025 End: 43-49-7694Fswrlwq encounter lffucevyt44/18/2025 4:30 PM EDT Office Visit [facility] [address] [facility] [address] [place] [address] DO [address] [place] [address] ERIK ZAVALAUSKYStart: 04-19-2025 End: 25-56-6249Uzctbjf encounter cxgotayra24/12/2025 3:45 PM EDT Procedure Visit [facility] [address] [place] [address] Josue Hinojosa DPM [address] [place] [address] NOMS SWS PODIATRYStart: 83-04-1778Bxttl BMI Screening Adult BMI ScreeningVeterans Health Administration SystemStart: 99-96-5019Wdlygsj Screening Tobacco ScreeningProDunlap Memorial Hospital SystemStart: 02-26-2025 End: 96-39-8763Upiveat encounter naptcrxhd05/21/2025 4:00 PM EDT Office Visit [facility] [address] [place] [address] Josue Hinojosa DPM [address] [place] [address] ArrivedNOMS SWS PODIATRYComment on above:ArrivedStart: 01-11-2025 End: 90-29-1041Clclxep encounter ukjdvlljs07/06/2025 3:45 PM EST Procedure Visit [facility] [address] [place] [address] Josue Hinojosa, DPM [address] [place] [address] NOMS SWS PODIATRYStart: 12-29-2024 End: 46-04-7027Uyuumkh encounter segdbylah50/21/2025 2:00 PM EST Office Visit [facility] [address] [place] [address] Faheem Rock, MARKET INTELLIGENCE CONSULTANT-METAL TEMPLATE MAKER [address] [place] [address] [facility] Adult EndocrinologyStart: 51-04-3356Abhil screening for proteinUrine MicroalbuminAdventHealth Hendersonvilletart: 11-02-2024 End: 12-59-6700Ewpkvfl encounter efybagbqx88/26/2024 11:30 AM EST Office Visit [facility] [address] [place] [address] Josue Hinojosa, DPM [address] [place] [address] ArrivedNOMS SWS PODIATRYComment on above:ArrivedStart: 10-25-2024 End: 90-64-4826Upssryl encounter lsilfrcny02/18/2024 4:15 PM EST Procedure Visit [facility] [address] [place] [address] Josue Hinojosa, DPM [address] [place] [address] NOMS SWS PODIATRYStart: 09-27-2024 End: 79-85-8764Vekqcmm encounter jepnxtmdv01/20/2024 4:00 PM EST Office Visit [facility] [address] [place] [address] Josue Hinojosa, DPM [address] [place] [address] [facility] PODIATRYStart: 09-12-2024 End: 57-50-7219Ppzmhtn encounter fckhesnus76/05/2024 5:45 PM EST Office Visit [facility] [address] [place] [address], DO [address] [place] [address] NOMS NEUROLOGYStart: 09-04-2024 End: 05-82-0079Wcapkth encounter vlzabxixe92/28/2024 4:00 PM EDT Office Visit [facility] [address] [place] [address] Josue Hinojosa, DPM [address] [place] [address] NOMS [facility] PODIATRYStart: 43-68-2032Puhhg BMI Screening Adult BMI ScreeningVeterans Health Administration SystemStart: 57-76-1369Iwrnbtjz foot examinationDiabetic Foot ExamProDunlap Memorial Hospital SystemStart: 47-71-0343Pgcktil ScreeningTobacco ScreeningProDunlap Memorial Hospital SystemStart: 08-28-2024 End: 80-28-6563Wuoxcgf encounter vdvamrfvy11/21/2024 4:00 PM EDT Office Visit [facility] [address] [place] [address] Josue Hinojosa, DPM [address] [place] [address] [facility] PODIATRYStart: 08-25-2024 End: 16-66-5441Vlrjqgm encounter rpzpwylrb67/18/2024 1:30 PM EDT Office Visit [facility] [address] [place] [address] Faheem Rock, MARKET INTELLIGENCE CONSULTANT-METAL TEMPLATE MAKER [address] [place] [address] [facility] Adult EndocrinologyStart: 08-21-2024 End: 18-49-1844Uzsriuc encounter procedureNOMS SWS PODIATRYComment on above: ArrivedStart: 08-16-2024 End: 83-17-7898Neqvcjh encounter procedureNOMS FB ORTHOPAEDICSComment on above: Acute pain of left knee (Primary Dx); History of left knee replacementStart: 08-14-2024 End: 29-22-5695Qjfnfpw encounter procedureNOMS SWS PODIATRYComment on above: ArrivedStart: 08-11-2024 End: 23-82-4326Cdeqnxo encounter smbsgfneh21/04/2024 7:30 AM EDT Procedure Visit [facility] Josue Hinojosa, DPM [address] [place] [address] NOMS EXT DEPStart: 08-10-2024 End: 85-16-4908Adzekzz encounter gvqiixqoz95/03/2024 9:45 AM EDT Office Visit [facility] [address] [place] [address] Josue Hinojosa, DPM [address] [place] [address] NOMS SWS PODIATRYStart: 07-24-2024 End: 53-79-2170Rfahfkk encounter fwuwanida05/16/2024 4:15 PM EDT Procedure Visit [facility] [address] [place] [address] Josue Hinojosa, DPM [address] [place] [address] NOMS SWS PODIATRYStart: 36-18-3121VXIZZ-19 Vaccine ( season)COVID-19 Vaccine ( season)[facility] Start: 24-32-0915INGIE-19 Vaccine ( season)COVID-19 Vaccine ( season)[facility] SystemStart: 02-62-8210Cysltvdtm vaccinationGolden Valley Memorial HospitalStart: 07-04-2024 End: 21-04-4076Dwxgcwl encounter fdshlazrw09/27/2024 4:30 PM EDT Office Visit [facility] [address] [place] [address] [facility]eniferAlmaMISSOURI [facility] [address] [place], [place] [address] [facility] ROUTEComment on above: ArrivedStart: 07-03-2024 End: 84-84-3402Vwazene encounter sfiwrcchu91/26/2024 3:00 PM EDT Office Visit [facility] [address] [facility] [address] [place] [address] Chris Nielsen PA [address] [place] [address] NOMS CI ORTHOPAEDICSStart: 03-03-2024 End: 21-02-4511Htmlgnv encounter /26/2024 11:45 AM EDT Office Visit [facility] [address] [place] [address] Nadia Sotomayor MD [address] [place] [address] [facility] Adult EndocrinologyStart: 01-26-2024 End: 25-01-0759Ybyscdr encounter bzezixqlz25/20/2024 4:15 PM EDT Procedure Visit [facility] [address] [place] [address] Josue Hinojosa, DPM [address] [place] [address] PANDA TA PODIATRYStart: 01-10-2024 End: 97-96-5814Qwpnbew profile includes TSH XG5Aktrrra profile includes TSH FT4 Lab Routine Postablative hypothyroidism Expected: 01/10/2024 (Approximate), Expires: 11/15/2024[facility] Work Phone: comment on above:Expected: 01/10/2024 (Approximate), Expires: 11/15/2024Start: 71-00-6167PLYKB-19 Vaccine ( season)COVID- 19 Vaccine ()[facility] SystemStart: 68-10-8450Emvjvjehk vaccinationOhioHealth Grady Memorial Hospitaltart: 05-28-9706Fakngjpmh for malignant neoplasm of cervixNOMS HealthcareStart: 20-30-9472FKIWQVIIYC ASSESSMENTDEPRESSION ASSESSMENTOhioHealth Grady Memorial Hospitaltart: 48-15-1801ZRUWA-19 VACCINE (4 - Booster for Pfizer series)COVID-19 VACCINE (4 - Booster for Pfizer series)[facility] Start: 55-41-0334WDPCOOZY SCREENDIABETES SCREENOhioHealth Grady Memorial Hospitaltart: 11-15-2019 Screening for malignant neoplasm of breastMammogramNOMS HealthcareStart: 20-64-9525SVNJMZTK VACCINE (1 of 2)SHINGRIX VACCINE (1 of 2)[facility] Start: 95-69-6039HNLFOQYIM (FIT-DNA)COLOGUARD (FIT-DNA)[facility]: 90-45-3175CuqeuczkcijIRHPFGKNFCPXsyxnlkmy ClinicStart: 24-73-0216YMTLEDVVHB CANCER SCREENINGCOLORECTAL CANCER SCREENINGOhioHealth Grady Memorial Hospitaltart: 41-42-8634QH COLONOGRAPHYCT COLONOGRAPHYOhioHealth Grady Memorial Hospitaltart: 96-08-8616IYPTL OCCULT BLOOD FECAL OCCULT BLOODOhioHealth Grady Memorial Hospitaltart: 72-82-4226DCXTU SCREENLIPID SCREEN [facility]: 40-46-4594JMVVMUMXZPRJQTLBXGZVYCGMTZXmbazyccx Clinic Start: 47-54-5081TpryxuogtvoJUXBWDBMDQxoijjsuk ClinicStart: 64-97-1834VIX TESTINGHPV TESTINGOhioHealth Grady Memorial Hospitaltart: 15-69-2367Tfzpicjek for malignant neoplasm of cervixNOMS HealthcareStart: 56-17-8026CJE TESTINGPAP TESTING [facility]tart: 46-05-3059Kdhkygakb for malignant neoplasm of cervixPap SmearNOKY HealthcareStart: 28-93-3038Acxmnnduolqhag of varicella zoster vaccine Zoster (Shingles) Vaccine (1 of 2)[facility] 1984 DTaP,Tdap and Td Vaccines (1 - Tdap)DTaP,Tdap and Td Vaccines (1 - Tdap) [facility]: 77-32-4617Ramzeiras B Vaccines (1 of 3 - 19+ 3- dose series)Hepatitis B Vaccines (1 of 3 - 19+ 3-dose series)[facility] Start: 75-56-6085Kvvvo microalbumin profileDTAP,TDAP,TD (1 - Tdap)[facility]: 78-87-1941GDIAWVEQS C SCREENINGHEPATITIS C SCREENINGOhioHealth Grady Memorial Hospitaltart: 37-98-3055KDY SCREENINGHIV SCREENINGOhioHealth Grady Memorial Hospitaltart: 20-41-7885Sgnfkqwsuj ScreeningDepression ScreeningAdventHealth Hendersonvilletart: 70-73-7926GDjC/Tdap/Td Vaccines (1 - Tdap)DTaP/Tdap/Td Vaccines (1 - Tdap)[facility] HospitalStart: 88-89-8397VYR Vaccines (1 of 1 - Standard series)MMR Vaccines (1 of 1 - Standard series)[facility] HospitalStart: 73-27-3717Jithffbx screening Diabetic Ophthalmology ExamAdventHealth Hendersonvilletart: 15-89-1564NPZBIYWAA B (1 of 3 - 3-dose series)HEPATITIS B (1 of 3 - 3-dose series)[facility] Start: 04-35-4574Vulrrnobg for malignant neoplasm of colonNOMS Healthcare End: 66-26-5971Amtiggkipomci metabolic 2000 panel - Serum or PlasmaComprehensive metabolic panel Lab Routine Type 2 diabetes mellitus without complication, without long-term current use of insulin (CMS-HCC) 1 Occurrences starting 08/25/2024 until 08/25/2025[facility] Work Phone: Comment on above:1 Occurrences starting 08/25/2024 until 08/25/2025 End: 27-23-3675Vyhukngrifahkp vitamin b-12Vitamin B12 Lab Routine Type 2 diabetes mellitus without complication, without long-term current use of insulin ([facility]) 1 Occurrences starting 08/25/2024 until 08/25/2025[facility] [employer] SystemComment on above:1 Occurrences starting 08/25/2024 until 08/25/2025 End: 55-68-6145Fduvv 1996 panel - Serum or PlasmaLipid profile Lab Routine Type 2 diabetes mellitus without complication, without long-term current use of insulin ([facility]) 1 Occurrences starting 08/25/2024 until 08/25/2025[facility] [employer] SystemComment on above:1 Occurrences starting 08/25/2024 until 08/25/2025 End: 44-52-1714Qcvqzjwduncd - Albumin: Creatinine Urine RatioMicroalbumin - Albumin: Creatinine Urine Ratio Lab Routine Type 2 diabetes mellitus without complication, without long-term current use of insulin ([facility]) 1 Occurrences starting 08/25/2024 until 08/25/2025[facility] [employer] SystemComment on above:1 Occurrences starting 08/25/2024 until 08/25/2025 End: 65-44-2312Zstgdsy profile includes TSH IU4Xksedxy profile includes TSH FT4 Lab Routine Postablative hypothyroidism 1 Occurrences starting 08/25/2024 until 08/25/2025[facility] SystemComment on above:1 Occurrences starting 08/25/2024 until 08/25/2025XR Knee - left 1 or 2 ViewsXR knee 1 or 2 views left Imaging Routine Acute pain of left knee 08/16/2024 3:04 PM [facility] Work Phone: Immunizations Immunization DateImmunizationNotesCare ProviderFacilityNEGATED: Highlighted row has not occurred!09-70-0182wexbibriu, injectable, quadrivalent, preservative freeFaheem Rock APRN-METAL TEMPLATE MAKER Work Phone: pRiverview Health Institute SystemComment on above:Deferred: Patient Refused Payers DatePayer CategoryPayerPolicy [id number] Care Other (unspecified) [employer] [id number] Private Health [id number] [id number] 2.0.1.694775.3.579.2.647 [id number] 2.0.1.289891.3.57[id number] 2.0.1.236950.3.57[id number] 2.0.1.694722.3.57[id number] 2.0.1.068316.3.57[id number] 2.840.1.777819.3.57[id number] 2.840.1.461907.3.57[id number] 2.0.1.588530.3.57[id number] 2.16.840.1.362617.3.57[id number] 2.16.840.1.387483.3.57[id number] 2.16.840.1.102755.3.57[id number] 2.16.840.1.823035.3.57[id number] 2.16.840.1.470360.3.57[id number] 2.16.840.1.271024.3.57[id number] 2.16.840.1.558149.3.57[id number] 2.16.840.1.826930.3.57[id number] 2.16.840.1.781650.3.57[id number] 2.16.840.1.206999.3.57[id number] 2.16.840.1.191087.3.57[id number] 2..840.1.347932.3.57[id number] 2.840.1.532430.19 [id number] Social History DateTypeDetailFacilityStart: 12-19-2020 End: 31-75-7957Rye Assigned At [facility] [employer] Other Start: 09-22-2012 End: 31-18-1511Nqfjdmg smoking status NHISNever smoked tobaccoHolzer Health System Start: 09-22-2012 End: 23-23-0034Tkbpfpz use and exposureSmokeless tobacco non-userOhioHealth Grady Memorial Hospitaltart: 58-82-8878Pqalvlo intakeNot AskedOhioHealth Grady Memorial Hospitaltart: 1965 Sex Assigned At BirthNot on fileOhioHealth Grady Memorial Hospitaltart: 11-03-2023 End: 37-92-7435Owffutu intakeCurrent drinker of alcohol (finding)[facility] Start: 12-19-2020 End: 56-38-9340Oxobtpb of Social functionMS HealthcareStart: 96-70-9691Nuvvlzj Commentcaffeine intake: 1-2 cups per day.[facility] HospitalStart: 01-20-2023 Frequency of Alcohol ConsumptionNeCarolinas ContinueCARE Hospital at Kings Mountaintart: 11-02-2018 Alcohol CommentRarelUniversity Hospitals Portage Medical Center SystemStart: 22-75-5789RxeGtbxns (finding) [facility] smoking status NHISUnknown if ever smoked [facility] Work Phone: Start: 29-16-8509Guf Assigned At [facility] HospitalFePremier Health Miami Valley HospitalHow often do you have a drink containing alcohol?Never [facility] Medical Equipment Procedure CodeEquipment CodeEquipment Original TextEquipment IdentifierDates [id number], [id number]: 11-03-2018 Goals DatePatient GoalDesired Activity/StatePersonal health goalComment on above: Evaluation of progress towards goal:Discharge home self care w/spouse/family support Clinical Notes 10-14-2021 to 09-18-2025 Note Date & MkatYhrfKmvhisat62-31-7888 Miscellaneous Notes* Telephone Encounter - Leilani Purcell LPN - 09/18/2025 9:34 AM EST PLEASE SIGN AND SEND. THANK YOU. documented in this encounterOur Lady of Mercy [facility] - Anderson11-11-2025 Telephone encounter Note* Telephone Encounter - Leilani Purcell LPN - 09/18/2025 9:34 AM EST PLEASE SIGN AND SEND. THANK YOU. [employer]11-10-2025 History of Present illness Narrative* Josue Hinojosa DPM - 09/17/2025 4:15 PM EST Images from the original note were not included. HPI: Richelle Montes presents today for post-op appointment of correction tailor's bunion right, fluoroscopically guided injection bilateral midfoot. Surgery was performed on 09/14/2025 at [facility]. Patient complains of pain 10. Current symptoms are sharp. Majority of her symptoms are along the surgical sites. Patient has been icing and elevating as instructed. Examination: General Examination: GENERAL EXAMINATION: awake, aware of surroundings, in no acute distress. Foot exam: 09/17/25 Vascular: DORSALIS PEDIS PULSE: 2/4, bilaterally. POSTERIOR [...] examination Osteoarthritis bilateral midfoot Bilateral foot pain Tailor's bunion right foot Right foot pain Plan: Surgery Follow-up Examination: Incision site was dressed with betadine, Adaptic and dry sterile dressing to the right foot. Advised patient to keep the dressing intact and continue to keep it covered when bathing. She can continueweightbearing as tolerated with use of the surgical shoe. Patient was also advised on beginning passive range of motion exercises to the foot and ankle as well as calf squeezes/compression. Patient does not want a refill of her pain medication. Patient will follow-up in 7-10 days for suture removal. documented in this encounterGolden Valley Memorial HospitalAijvfryxbc23-32-7334 History of Present illness Narrative* Josue Hinojosa DPM - 09/04/2025 4:45 PM EDT Images from the original note were not included. HPI: Patient presents today for their pre-operative appointment. The patient is scheduled for correctiontailor's bunion right, fluoroscopically guided injection bilateral midfoot at [facility] with Dr. Hinojosa on 09/14/2025 at 1:00 PM. The patient is here to sign surgery paperwork, receive post-operative shoe (if needed), post-operative instructions and any post-operative prescriptions. Patient presents today for toenail care and callus care. No other concerns. has a past medical history of Asthma (HCC), Breast cancer (HCC), Diabetes (HCC), Hypertension, Ovarian cancer (HCC), and Thyroid nodule. Current Outpatient Medications Medication Instructions albuterol HFA (ProAir HFA) 90 mcg/act inhaler Every 4 hours RT amLODIPine (NORVASC) 10 mg, Oral, Daily amoxicillin (Amoxil) 500 MG tablet 4 tabs PO once 30-60 mins before procedure with food amoxicillin (Amoxil) 500 MG tablet 4 tabs PO once 30-60 mins before procedure with food doxepin (SINEquan) 10 MG capsule Take 1-3 capsules at bed time fluocinonide (Lidex) 0.05 % ointment APPLY TOPICALLY TO HANDS AND KNEES TWICE DAILY levoFLOXacin (Levaquin) 500 MG tablet 1 tablet, Oral, Daily levothyroxine (Synthroid, Levoxyl) 150 MCG tablet Daily RT metFORMIN (GLUCOPHAGE) 500 mg, Oral, Daily with evening meal simvastatin (ZOCOR) 20 mg, Oral, Every evening Allergies: Allergies as of 09/04/2025 (No Known Allergies) family history includes Breast cancer in her mother; Cancer in her maternal grandmother; Diabetes in her maternal grandmother; Heart disease in her father; Stroke in her maternal grandfather and maternal grandmother. She was adopted. reports that she has never smoked. She has never used smokeless tobacco. She reports current alcohol use. She reports that she does not use drugs. 11/03/2022 12:00 PM 12/11/2022 12:00 PM 01/26/2023 [...] surroundings, in no acute distress. Foot exam: 08/29/25 Vascular: DORSALIS PEDIS PULSE: 2/4, bilaterally. POSTERIOR TIBIAL PULSE: 1/4, right 0/4 left. TEMPERATURE GRADIENT: warm to cool. EDEMA: moderate to the bilateral ankle. CAPILLARY FILLING TIME(sec): capillary fill intact bilateral digits less than 3 secs. Neurologic: NEUROLOGIC: light touch is intact to the plantar foot. Dermatologic: SKIN FINDINGS: incision site to the 3rd digit is well healed. Hyperkeratosis along the distal digitis loosening from surgery and loosened skin was [...] foot pain Tailor's bunion right foot Plan: Hallux Valgus: Patient presents today for their pre-operative appointment for proposed procedure: CORRECTION OF TAILOR'S BUNION DEFORMITY right, FLUOROSCOPICALLY GUIDED INJECTION BILATERAL MIDFOOT. Surgical paperwork was completed and signed. The patient elects to proceed with surgical intervention at this time. The risks, complications, benefits, alternatives to surgery including 2nd opinion, OR personnel and yoan and post-op care were discussed in detail with the patient. The elective nature of the procedure was also discussed in detail with the patient. Specific complications related to this surgery werealso discussed including, but not limited to: possible infection, the need for oral or IV antibiotics, hospitalization, additional surgery including removal of hardware, prolonged pain, stiffness or reoccurrence. Other complications include blood clot, hematoma, loss of use, loss of toe, foot and or leg. Possible complications relating to over activity and limitations during the post- operative period were reviewed in detail. We have reviewed the fact that prolonged swelling is possible up to a year after surgery and could delay return to normal shoes and activities. Patient was dispensed their postoperative prescriptions including: Percocet, Phenergan. A post-operative shoe was also dispensed for use after surgery. Patient instructed to bring this with them on the day of surgery. We discussed the postoperative instructions including protected weight bearing on the surgical foot for at least 6-8 weeks with use of a walking boot. The patient was told that no guarantee could be made as to the outcome of the procedure patient consented to the procedure. They will be contacted by the surgery center/hospital regarding their surgical appointment time. Patient was reminded to be NPO at midnight prior to their procedure. Patient will schedule post-op appointment for 3-5 days after surgery. documented in this encounterGolden Valley Memorial HospitalYtdciqxbcm27-03-8649 NoteBellevue Office Cardiology Clinic Note Reason for cardiology visit: Follow-up, she needs cardiac clearance for bunion surgery HPI: 08/17/2025 Patient is here today for follow-up visit and for preop clearance. She states that she has been doing well. She denies any chest pain or shortness of breath at rest or with exertion. She denies orthopnea or paroxysmal nocturnal dyspnea or dizziness or palpitations. She denies legs edema or discomfort on exertion. She has been forgetting to check her blood pressure at home because of the schedule of her work which starts yearly around 4 AM for 2 hours. 02/05/2025 Richelle Montes is a 60 y.o. female with history of hypertension, type [...] at that time she was sent to [facility] and she had cardiac catheterization which [...] a past medical history of Asthma, Cancer ([facility]), Diabetes mellitus ([facility]), Hypertension, and Hypothyroid. Surgical History She has a past surgical history that includes Replacement total knee oncologic; Foot surgery; and Hysterectomy. Social History She reports that she has never smoked. She has never used smokeless tobacco. She reports that she does not currently use alcohol. She reports that she does not use drugs. Family History Family History Problem Relation Name Age of Onset Breast cancer Mother Heart disease Father Allergies Patient has no known allergies. Medications Current Outpatient Medications: amLODIPine (Norvasc) 10 mg tablet, Take 10 mg by mouth in the morning., Disp: , Rfl: aspirin 81 mg EC tablet, Take 1 tablet (81 mg) by mouth in the morning., Disp: 30 tablet, Rfl: 11 doxepin (SINEquan) 10 mg capsule, Take 20 [...] TABLET ON THE TONGUE DAILY EVERY OTHER D (more content not included)...[facility] 08-15-2025 Telephone encounter Note* Telephone Encounter - Miriam Dolan - 08/15/2025 3:46 PM EDT Patient called requesting antibiotic be sent to [facility] for dentist appt. [facility] HospitalWjrlscctbt88-19-9133 Miscellaneous Notes* Telephone Encounter - Miriam Dolan - 08/15/2025 3:46 PM EDT Patient called requesting antibiotic be sent to [facility] for dentist appt. documented in this encounterGolden Valley Memorial HospitalHwgxplxktm84-77-5030 History of Present illness Narrative* Josue Hinojosa DPM - 07/30/2025 4:00 PM EDT Images from the original note were not [...] nails. History of ulcers/wounds: no. PCP: Hoy. Kuhn Nadia CormierSotomayor Date of Last visit: 03/03/2024 Aggravated byshoe [...] is well healed. Hyperkeratosis along the distal digitis loosening from surgery and loosened skin was [...] or Silipos padding/toe spacers to prevent rubbing andcontinued development of the hyperkeratosis. 3. Also discussed use of moisturizing creams for overall increased hydration to the skin. 4. Discussed continued use of proper foot gear to avoid excess pressure over the callous site. documented in this encounterGolden Valley Memorial HospitalLriiaekiid19-58-7814 Miscellaneous Notes* Telephone Encounter - Leilani Purcell LPN - 06/19/2025 9:06 AM EDT PLEASE SIGN AND SEND. THANK YOU. documented in this encounterOur Lady of [facility]08-12-2025 Telephone encounter Note* Telephone Encounter - Leilani Purcell LPN - 06/19/2025 9:06 AM EDT PLEASE SIGN AND SEND. THANK YOU. [facility]06-12-2025 History of Present illness Narrative* Josue Hinojosa DPM - 04/19/2025 3:45 PM EDT Images from the original note were not [...] nails. History of ulcers/wounds: no. PCP: Hoy. Kuhn Nadia Sotomayor Date of Last visit: 03/03/2024 [...] is well healed. Hyperkeratosis along the distal digitis loosening from surgery and loosened skin was [...] or Silipos padding/toe spacers to prevent rubbing andcontinued development of the hyperkeratosis. 3. Also discussed use of moisturizing creams for overall increased hydration to the skin. 4. Discussed continued use of proper foot gear to avoid excess pressure over the callous site. documented in this encounterGolden Valley Memorial [id number] History of Present illness Narrative* Josue Hinojosa DPM - 02/26/2025 4:00 PM EDT Images from the original note were not included. HPI: Patient presents today for their pre-operative appointment. The patient is scheduled for injection bilateral foot at [facility] with Dr. Hinojosa on 03/09/2025 at 8:30AM. [...] is well healed. Hyperkeratosis along the distal digitis loosening from surgery and loosened skin was [...] for their pre-operative appointment for proposed procedure: FluoroscopicallyGuided Injection to the bilateral foot. Surgical paperwork [...] tolerated following the injection. The patient was toldthat no guarantee could be made as to the outcome of the procedure patient consented to the procedure. They will be contacted by the surgery center/hospital regarding their surgical appointment time.Patient was advised that they can eat and drink as tolerated because their procedure is under a local. Patient will follow-up as needed after the injection based on recurrent symptoms. documented in this encounterGolden Valley Memorial HospitalDnodacgind20-08-6348 NoteBellevue Office Cardiology Clinic Note Reason for cardiology visit: Follow-up HPI: Richelle Montes is a 59 y.o. female with history [...] at that time she was sent to [facility] and she had cardiac catheterization which [...] a past medical history of Asthma, Cancer ([facility]/HCC), Diabetes mellitus (CMS/HCC), Hypertension, and Hypothyroid. Surgical [...] CELENA, EOMI. NECK: trac (more content not included)...[facility] 01-10-2025 History of Present illness Narrative* Josue Hinojosa DPM - 01/10/2025 4:15 PM EST Images from the original note were not included. HPI: Richelle Montes presents today for post-op appointment of removal of bone left 3rd toe as well as toenail care. Surgery was performed on 08/11/[address] [facility]. Patient complains of pain 0. Current [...] nails. History of ulcers/wounds: no. PCP: Hoy. Alcantararonolaby Sotomayor Date of Last visit: 03/03/2024 Aggravated [...] is well healed. Hyperkeratosis along the distal digitis loosening from surgery and loosened skin was [...] complication, without long-term current use of insulin ([facility]) E11.9 Plan: Diabetes, Onychomycosis: 1. Nails were [...] or Silipos padding/toe spacers to prevent rubbing andcontinued development of the hyperkeratosis. 3. Also discussed use of moisturizing creams for overall increased hydration to the skin. 4. Discussed continued use of proper foot gear to avoid excess pressure over the callous site. documented in this encounterGolden Valley Memorial [id number] History of Present illness Narrative* Faheem Rock APRN-METAL TEMPLATE MAKER - 12/29/2024 2:00 PM EST REASON FOR VISIT: Richelle Montes is seen in follow-up today for hypothyroidism and Type 2 Diabetes. HPI: Last seen 08/25/24. Hgb A1c is 5.9% today, from 5.7% at last visit. She is taking metformin ER 500 mg once a day. No increased thirst/urination. No blurry vision. Has not been checking blood sugars. Weight stable. Doesn't always eat the best. No regular exercise. Hadtoe surgery 08/11/24, also had cortisone shots. Last eye exam in 2022. Numbness in the feet and toe deformities due to defect. She has a history of hypothyroidism following iodine ablation for Graves disease in 2004. Currentlytaking levothyroxine 150 mcg daily. No palpitations, tremors, [...] Disp: , Rfl: lancets (accu-chek soft touch) [facility], Monitor blood sugar daily, Disp: 100 each, [...] 1 TABLET(500 MG) BY MOUTH DAILY WITH DINNER,Disp: 90 tablet, Rfl: 3 metoprolol succinate XL (TOPROL XL) 50 mg 24 hr tablet, Take 1 tablet (50 mg total) by mouth in themorning., Disp: , Rfl: multivitamin capsule, Take 1 capsule by mouth in the morning., Disp: , Rfl: rimegepant (NURTEC ODT) 75 mg tablet,disintegrating, DISSOLVE 1 TABLET ON THE TONGUE DAILY EVERY OTHER DAY NEEDED FOR MIGRAINE, Disp: , Rfl: verapamil HCl ER (VERELAN PM) 200 mg capsule, [address], Take 2 capsules (400 mg total) bymouth daily., Disp: 180 capsule, Rfl: 0 simvastatin (ZOCOR) 20 mg tablet, Take 1 tablet (20 mg total) by mouth., Disp: , Rfl: PAST MEDICAL HISTORY: Past Medical History: Diagnosis Date Asthma Breast cancer ([facility]) Right breast 2011 DCIS Depression Disease of thyroid gland DM type 2 (diabetes mellitus, type 2) ([facility]) Dry skin Endometrial hyperplasia GERD (gastroesophageal [...] pg/mL Final Lab Results Component Value Date TYUWOTB7I 5.9 12/29/2024 PAPIRYM0Y 5.7 08/25/2024 ULTHZFW0Z 5.5 03/03/2024 Hemoglobin A1C Date Value Ref [...] complication, without long-term current use of insulin ([facility]) - POCT Hemoglobin A1c - POCT Glucose [...] to vision loss, amputation, and renal failure. Theneed for good glucose control to prevent complications is discussed. Ongoing diabetes education is recommended. If possible a minimum of 150 minutes of physical activity per week is encouraged. On going progressive weight loss is advised. The signs symptoms and treatment of hypoglycemia are understood by the patient. The individual should not drive if symptoms of hypoglycemia are precieved and ifpossible the blood glucose should be check before driving or participating in dangerous activity. A diabetes ID is recommended. Yearly dilated eye examination and yearly urine Microalbumin to cr ratio are advised. The blood pressure should be maintained under 140/80. The LDL less than 100 mg/dl forprimary prevention atherosclerosis and < 70 mg/dL as secondary prevention. Daily examination of the feet for signs of injury and inspection of the shoes for foreign body or shoe deformity that could lead to foot injury. RETURN TO CLINIC: 4 months RAYNA Guaman 12/29/24 1401 documented in this encounterOur Lady of Mercy [facility]02-07-2025 NoteBellevue Office Cardiology Clinic Note Reason for cardiology consult: Abnormal stress test Chief Complaint: Weakness and chest pressure HPI: Richelle Montes is a 59 y.o. female with history [...] [facility] which was [...] a past medical history of Asthma, Cancer ([facility]), Diabetes mellitus ([facility]), Hypertension, and Hypothyroid. Surgical History She has [...] HEAD: atraumatic, normocephalic. EYES (more content not included)...[facility]01-13-2025 Telephone encounter Note* Telephone Encounter - COURTNEY Washburn - 11/20/2024 10:24 PM EST Rx sent to pharmacy [facility] [id number] Miscellaneous Notes* Telephone Encounter - COURTNEY Washburn - 11/20/2024 10:24 PM EST Rx sent to pharmacy * Telephone Encounter - Miriam Dolan - 11/20/2024 3:51 PM EST Patient called requesting antibiotic sent over to [facility] in [place] for her dentist appointment. documented in this encounterGolden Valley Memorial HospitalTsogbxgbpp92-90-5594 Telephone encounter Note* Telephone Encounter - Mirima Dolan - 11/20/2024 3:51 PM EST Patient called requesting antibiotic sent over to [facility] for her dentist appointment. [facility] [id number] History of Present illness Narrative* Josue Hinojosa DPM - 11/02/2024 11:30 AM EST Images from the original note were not included. HPI: Richelle Montes presents today for post-op appointment of removal of bone left 3rd toe as well as toenail care. Surgery was performed on 08/11/[address] [facility]. Patient complains of pain 0. Current [...] surroundings, in no acute distress. Foot exam: 12/26/24 Vascular: DORSALIS PEDIS PULSE: 2/4, bilaterally. POSTERIOR TIBIAL PULSE: 1/4, right 0/4 left. TEMPERATURE GRADIENT: warm to cool. EDEMA: moderate to the bilateral ankle. CAPILLARY FILLING TIME(sec): capillary fill intact bilateral digits less than 3 secs. Neurologic: NEUROLOGIC: light touch is intact to the plantar foot. Dermatologic: SKIN FINDINGS: incision site to the 3rd digit is well healed. Hyperkeratosis along the distal digitis loosening from surgery and loosened skin was [...] or Silipos padding/toe spacers to prevent rubbing andcontinued development of the hyperkeratosis. 3. Also discussed [...] for that next spring. documented in this encounterGolden Valley Memorial [id number] History of Present illness Narrative* Josue Hinojosa DPM - 10/09/2024 3:45 PM EST Images from the original note were not included. HPI: Richelle Montes presents today for post-op appointment of removal of bone left 3rd toe. Surgery was performed on 08/11/[address] [facility]. Patient complains of pain 0. Current [...] noted. Hyperkeratosis along the distal digit is looseningfrom surgery and loosened skin was removed. HYPERKERATOSIS: [...] 2-3 weeks for recheck. documented in this [facility]10-28-2024 History of Present illness Narrative* Josue Hinojosa DPM - 09/04/2024 4:00 PM EDT Images from the original note were not included. HPI: Richelle Montes presents today for post-op appointment of removal of bone left 3rd toe. Surgery was performed on 08/11/[address] [facility]. Patient complains of pain 0. Current [...] noted. Hyperkeratosis along the distal digit is looseningfrom surgery and loosened skin was removed. HYPERKERATOSIS: [...] Wednesday without any restrictions. She has a [place] appointment in 3 weeks and will follow-up then. documented in this encounterGolden Valley Memorial [id number] History of Present illness Narrative* Josue Hinojosa DPM - 08/21/2024 4:30 PM EDT Images from the original note were not included. HPI: Richelle Montes presents today for post-op appointment of removal of bone left 3rd toe. Surgery was performed on 08/11/[address] [facility]. Patient complains of pain 4. Current symptoms are pulling, tightness . Majority of her symptoms are along the surgical sites. Patient has been icingand elevating as instructed. Examination: General Examination: GENERAL [...] symptoms. RTC: 3 weeks. documented in this encounterGolden Valley Memorial [id number] History of Present illness Narrative* COURTNEY Washburn - 08/16/2024 3:15 PM EDT HISTORY OF PRESENT ILLNESS: EST PT Richelle Montes is an 59 y.o. @ female. EST [...] Use: Not At Risk (10/07/2018) Received from [employer], [employer] Frequency of Alcohol Consumption: Never Average [...] for requiring urgent evaluation. documented in this encounterGolden Valley Memorial [id number] History of Present illness Narrative* Josue Hinojosa DPM - 08/14/2024 4:15 PM EDT Images from the original note were not included. HPI: Richelle Montes presents today for post-op appointment of removal of bone left 3rd toe. Surgery was performed on 08/11/[address] [facility]. Patient complains of pain 8. Current symptoms are sharp. Majority of her symptoms are along the surgical sites. Patient has been icing and elevatingas instructed. Examination: General Examination: GENERAL EXAMINATION: awake, [...] dry sterile dressing to the left foot. Advisedpatient to keep the dressing intact and continue to keep it covered when bathing. She can continue weightbearing as tolerated with use of the surgical shoe. Patient was also advised on beginning passive range of motion exercises to the foot and ankle as well as calf squeezes/compression. Patient does not want a refill of her pain medication. Patient will follow-up in - days for suture removal. documented in this encounterGolden Valley Memorial [id number] History of Present illness Narrative* Josue Hinojosa DPM - 08/10/2024 9:45 AM EDT Images from the original note were not included. HPI: Patient presents today for their pre-operative appointment. The patient is scheduled for removal ofbone left 3rd toe at [facility] with Dr. Hinojosa on 08/11/2024 at 7:30 [...] daily for 5 days, take 1 pill twicedaily for 5 days then 1 pill once [...] surgical intervention at this time. The risks, compl ications, benefits, alternatives to surgery including 2nd opinion, OR personnel and yoan and post-op care were discussed in detail with the patient. The elective nature of the procedure was also discussed in detail with the patient. Specific complications related to this surgery were also discussedincluding, but not limited to: possible infection, the need for oral or IV antibiotics, hospitalization, additional surgery including removal of hardware, prolonged pain, stiffness or reoccurrence. Other complications include blood clot, hematoma, loss of use, loss of toe, foot and or leg. Possiblecomplications relating to over activity and limitations during the post-operative period were reviewed in detail. We have reviewed the fact that prolonged swelling is possible up to a year after surgery and could delay return to normal shoes and activities. Patient was dispensed their postoperativeprescriptions including: [place]. A post-operative shoe was also dispensed for [...] 3-5 days after surgery. documented in this encounterGolden Valley Memorial [id number] History of Present illness Narrative* Josue Hinojosa DPM - 07/24/2024 4:15 PM EDT Images from the original note were not [...] pain and problems developing from the overgrowth ofthe toenails. Callous: 1. Hyperkeratosis/porokeratosis as above noted was debrided. 2. Instructed patient on use of aperture pads or Silipos padding/toe spacers to prevent rubbing andcontinued development of the hyperkeratosis. 3. Also discussed use of moisturizing creams for overall increased hydration to the skin. 4. Discussed continued use of proper foot gear to avoid excess pressure over the callous site. documented in this [facility]08-27-2024 History of Present illness Narrative* Alma Street DO - 07/04/2024 4:30 PM EDT Images from the original note were not included. Chief Complaint Patient presents with Migraine Subjective Richelleblack Montes, 59 y.o., female HPI She has had [...] BREAST LUMPECTOMY Right 2012 FOOT SURGERY Bilateral 1990 HYSTERECTOMY 09/2018 DE KNEE SCOPE,CLEAN/DRAIN Left 2020 DE NASAL SURG PROC UNLISTED TOTAL KNEE ARTHROPLASTY [...] Primary insomnia 1. Migraine - G43.909 (Primary), [id number] 2. Insomnia, unspecified - G47.00, [id number]- 58 year old female with headaches made up of migraines amd some tension headaches. These are stablewith the current medications. They can fluctuate in frequency but overall doing well. She does havesome insomnia in the doxepin helps with that. [...] find anything wrong. 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 [...] were answered and they agreed with the treatmentplan. The patient is to call with any [...] to clinic: 6 months documented in this encounterGolden Valley Memorial [id number] History of Present illness Narrative* Faheem Rock, MARKET INTELLIGENCE CONSULTANT-METAL TEMPLATE MAKER - 08/25/2024 1:30 PM EDT REASON FOR VISIT: Richelle Montes is seen in follow-up today for hypothyroidism and Type 2 Diabetes. HPI: Last seen 03/03/24. Hgb A1c is 5.7% today, from 5.5% at last visit. She is taking metformin ER 500 mg once a day. No increased thirst/urination. No blurry vision. Has not been checking blood sugars. Weight stable. Doesn't always eat the best. No regular exercise. Hadtoe surgery 08/11/24, also had cortisone shots. Last eye exam in 2022. Numbness in the feet and toe deformities due to defect. She has a history of hypothyroidism following iodine ablation for Graves disease in 2004. Currentlytaking levothyroxine 150 mcg daily. No palpitations, tremors, [...] tablet (150 mcg total) by mouth in themorning. 2 tabs on Saturdays and Sundays., Disp: 114 tablet, Rfl: 3 lisinopril (PRINIVIL,ZESTRIL) 5 mg tablet, Take 1 tablet (5 mg total) by mouth in the morning., Disp: , Rfl: metFORMIN XR (GLUCOPHAGE XR) 500 mg 24 hr tablet, TAKE 1 TABLET(500 MG) BY MOUTH DAILY WITH DINNER,Disp: 90 tablet, Rfl: 3 multivitamin capsule, Take 1 capsule by mouth in the morning., Disp: , Rfl: verapamil HCl ER (VERELAN PM) 200 mg capsule, [address], Take 2 capsules (400 mg total) bymouth daily., Disp: 180 capsule, Rfl: 0 lancets (accu-chek soft touch) misc, Monitor blood sugar daily (Patient not taking: Reported on 08/25/2024), Disp: 100 each, Rfl: 5 PAST MEDICAL HISTORY: Past Medical History: Diagnosis Date Asthma Breast cancer ([facility]) Right breast 2012 DCIS Depression Disease of thyroid gland DM type 2 (diabetes mellitus, type 2) ([facility]) Dry skin Endometrial hyperplasia GERD (gastroesophageal [...] pg/mL Final Lab Results Component Value Date HAZQXUG8T 5.7 08/25/2024 ZXPPASO9H 5.5 03/03/2024 [id number] 5.6 09/03/2023 Hemoglobin A1C Date Value Ref [...] complication, without long-term current use of insulin ([facility]) - POCT Glucose Fingerstick - POCT [...] to vision loss, amputation, and renal failure. Theneed for good glucose control to prevent complications is discussed. Ongoing diabetes education is recommended. If possible a minimum of 150 minutes of physical activity per week is encouraged. On going progressive weight loss is advised. The signs symptoms and treatment of hypoglycemia are understood by the patient. The individual should not drive if symptoms of hypoglycemia are precieved and ifpossible the blood glucose should be check before driving or participating in dangerous activity. A diabetes ID is recommended. Yearly dilated eye examination and yearly urine Microalbumin to cr ratio are advised. The blood pressure should be maintained under 140/80. The LDL less than 100 mg/dl forprimary prevention atherosclerosis and < 70 mg/dL as secondary prevention. Daily examination of the feet for signs of injury and inspection of the shoes for foreign body or shoe deformity that could lead to foot injury. RETURN TO CLINIC: 4 months RAYNA Guaman 08/25/24 1256 documented in this encounterWooster Community HospitalPromoter.io [facility] [id number] History of Present illness Narrative* Nadia Sotomayor MD - 03/03/2024 11:45 AM EDT REASON FOR VISIT: Richelle Montes is seen in follow-up today for hypothyroidism [...] iodine ablation for Graves disease in 2004. Currentlytaking levothyroxine 150 mcg daily since November. Labs [...] tablet (150 mcg total) by mouth in themorning. 2 tabs on Saturdays and Sundays., Disp: [...] CT, Take 2 capsules (400 mg total) bymouth daily., Disp: 180 capsule, Rfl: 0 lancets (accu-chek soft touch) misc, Monitor blood sugar daily (Patient not taking: Reported on 10/21/2022), Disp: 100 each, Rfl: 5 PAST MEDICAL HISTORY: Past Medical History: Diagnosis Date Asthma Breast cancer ([facility]) Right breast 2012 DCIS Depression Disease of thyroid gland DM type 2 (diabetes mellitus, type 2) ([facility]) Dry skin Endometrial hyperplasia GERD (gastroesophageal reflux [...] pg/mL Final Lab Results Component Value Date WLEWPUM0S 5.5 03/03/2024 OKHDTPN0N 5.6 09/03/2023 OYACVBI9R 5.9 10/21/2022 Hemoglobin A1C Date Value Ref [...] complication, without long-term current use of insulin ([facility]) - POCT Hemoglobin A1c 2. Postablative hypothyroidism - POCT Hemoglobin A1c - TSH; Future - T4, free; Future RETURN TO CLINIC: 6 months documented in this [facility]04-26-2024 Miscellaneous Notes* Addendum Note - Kristal Bejarano CMA - 03/03/2024 11:45 AM EDTAddended by: KRISTAL BEJARANO on: 03/03/2024 12:37 PM Modules accepted: Orders documented in this [facility]04-26-2024 Note* Addendum Note - Kristal Bejarano CMA - 03/03/2024 11:45 AM EDTAddended by: KRISTAL BEJARANO on: 03/03/2024 12:37 PM Modules accepted: Orders [facility] [employer] [id number] History of Present illness Narrative* Josue Hinojosa DPM - 11/26/2023 9:30 AM EST See scanned Op note documented in this encounterGolden Valley Memorial [id number] Miscellaneous Notes* Telephone Encounter - Courtney Schuler LPN - 04/06/2023 2:59 PM EDT I left a message notifying Richelle that she can continue follow up with her PCP. She is due for a bilateral mammogram mid Dec 2023 and she will need her PCP to order it. I encouraged her to call with further questions/concerns. Courtney Schuler LPN * Telephone Encounter - Courtney Schuler LPN - 04/06/2023 8:40 AM EDT Richelle called wondering if she needs to continue follow up with Dr. Brooks. She said she completed radiation therapy years ago, 2011. She said Dr. Evans is her pcp and she sees him when she needs to. I explained that if Dr. Brooks agrees to releasing her as a patient that Dr. Evans will need to order her yearly mammograms. Please advise. Courtney Schuler LPN documented in this encounterHolzer [facility] System03-29-2022 Evaluation note* Encounter Date Diagnosis Assessment Notes Treatment Notes Treatment Clinical Notes Jan, Primary osteoarthritis of left k nee (ICD-10 - M17.12) Radiographs reviewed with patient and company as advancing degenerative changes at the knee. The patient is suffering from degenerative arthritis involving the knee. We discussed the conservative treatment options which can be beneficial in relieving pain, including gentle non-impact motion exercise and non-steroidal anti-inflammatory medication. We discussed the use of occasional cortisone injections that can provide pain relief as well as hyaluronan lubricant injection. Patient today opts to work on weight loss to aid in pain relief at the knee. [employer] [facility] Other 03-07-2022 Evaluation note* Encounter Date Diagnosis [...] .Call with any questions or concerns. Jan, rimary osteoarthritis of left knee (ICD-10 - M17.12) Jan,ther specified postprocedural states (ICD-10 - Z98.890) [employer] [facility] Other 12-28-2021 Evaluation note* Encounter Date Diagnosis Assessment Notes Treatment Notes Treatment Clinical Notes Oct, Other tear of medial meniscus, current injury, left knee, subsequent encounter (ICD-10 - S83.242D) We discussed and demonstrated gentle motion exericses as well as quadriceps and hamstring strengthening exerices. Oct,rimary osteoarthritis of left knee (ICD-10 - M17.12) Oct,Other specified postprocedural states (ICD-10 - Z98.890) Patient off work until 11/19/21 [employer] [facility] Other 12-07-2021 Evaluation note* Encounter Date Diagnosis Assessment Notes Treatment Notes Treatment Clinical Notes Oct, Other specified postprocedural s tates (ICD-10 - Z98.890) Oct,Other tear of medial meniscus, current injury, left knee, subsequent encounter (ICD-10 - S83.242D) We discussed and demonstrated gentle motion exericses as well as quadriceps and hamstring strengthening exerices. Patient will be sending [employer] paper work for off work until next appointment [employer] [facility] Other Evaluation noteNo InformationNort Gociety Other Evaluation note* Diagnosis Primary osteoarthritis, left [...] left knee replacement documented in this encounter [facility]Evaluation [facility]* Diagnosis Surgery follow-up examination- Primary Follow-up examination, following unspecified surgery Exostosis of left foot Left foot pain Pain in soft tissues of limb documented in this encounter [facility]* Diagnosis Surgery follow-up examination- Primary Follow-up examination, following unspecified surgery Exostosis of left foot Left foot pain Pain in soft tissues of limb documented in this encounter [facility]Evaluation [facility]* Diagnosis Postablative hypothyroidism Other postablative hypothyroidism [facility]* Diagnosis Surgery follow-up examination- Primary Follow-up examination, following unspecified surgery Exostosis of left foot Left foot pain Pain in soft tissues of limb documented in this encounter [facility]Evaluation [facility]* Diagnosis Onychomycosis- Primary Dermatophytosis of nail Pain in both feet Corns and callosities documented in this encounter [facility]Evaluation note* Diagnosis Insomnia, unspecified type Chronic migraine without aura without status migrainosus, not intractable ([facility]) Tension headache Primary insomnia Persistent disorder of initiating or maintaining sleep documented in this encounter [facility]Evaluation [facility]* Diagnosis Surgery follow-up examination- Primary Follow-up examination, following unspecified surgery 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 Onychomycosis Dermatophytosis of nail Corns and callosities Pain in both feet Type 2 diabetes mellitus without complication, without long-term current use of insulin ([facility]) documented in this encounter [facility]* Diagnosis History of left knee replacement- Primary documented in this encounter [facility]Evaluation [facility]* Diagnosis Type 2 diabetes mellitus without complication, without long-term current use of insulin ([facility])- Primary Postablative hypothyroidism Other postablative hypothyroidism [facility]* Diagnosis Postablative hypothyroidism- Primary Other postablative hypothyroidism [facility]* Diagnosis Type 2 diabetes mellitus without complication, without long-term current use of insulin (CMS-HCC) Type 2 diabetes mellitus without complication, without long-term current use of insulin (CMS-HCC)- Primary Postablative hypothyroidism Other postablative hypothyroidism [facility]* Diagnosis Type 2 diabetes mellitus without complication, without long-term current use of insulin ([facility])- Primary Postablative hypothyroidism Other postablative hypothyroidism [facility]* Diagnosis Type 2 diabetes mellitus without complication, without long-term current use of insulin ([facility])- Primary Postablative hypothyroidism Other postablative hypothyroidism [facility]* Diagnosis Onychomycosis- Primary Dermatophytosis of nail Corns and callosities Pain in both feet Type 2 diabetes mellitus without complication, without long-term current use of insulin (CMS/HCC) documented in this encounter [facility] HealthcareEvaluation note* Diagnosis Osteoarthritis of midtarsal joint of left foot- Primary Osteoarthritis of right ankle and foot Pain in both feet Tailor's bunion of right foot documented in this encounter [facility] HealthcareEvaluation note* Diagnosis Postablative hypothyroidism Other postablative hypothyroidism [facility]* Diagnosis Corns and callosities- Primary Pain in both feet Type 2 diabetes mellitus without complication, without long-term current use of insulin (HCC) Onychomycosis Dermatophytosis of nail documented in this encounter [facility] HealthcareEvaluation noteNo assessment information availableUniversity Hospitals Ahuja Medical Center Work Phone: Evaluation note* Diagnosis Corns and callosities- Primary Pain in both feet Onychomycosis Dermatophytosis of nail Type 2 diabetes mellitus without complication, without long-term current use of insulin (HCC) documented in this encounter [facility] HealthcareEvaluation note* Diagnosis History of left knee replacement- Primary documented in this encounter [facility] HealthcareEvaluation note* Diagnosis Tailor's bunion of right foot- Primary Right foot pain Pain in soft tissues of limb documented in this encounter [facility] HealthcareEvaluation note* Diagnosis Surgery follow-up examination- Primary Follow-up examination, following unspecified surgery documented in this encounter [facility] HealthcareHistory general Narrative - Reported* Type Description Date Medical History asthma Medical Historythyroid diseaseMedical Historyhigh blood pressureMedical History diabetes mallitusMedical Historyhigh cholesterolMedical Historybreast nodule Surgical HistoryhysterectomySurgical Historyfoot surgeriesSurgical Historysinus surgerySurgical Historyleft knee arthroscopy, medial menisecectomy. DOS 07/08/21 [employer] [facility] Other InstructionsNot on filedocumented in this encounter [facility] SystemInstructionsNot on filedocumented in this encounter [facility] SystemInstructionsNot on filedocumented in this encounter [facility] SystemInstructionsNot on filedocumented in this encounter [facility] SystemInstructionsNot on filedocumented in this encounter [facility] SystemReason for referral (narrative)No reason for referral information availableUniversity Hospitals Ahuja [facility] Center Work Phone: Summary Purpose Family History Relationship Condition Age at Onset Recorded Date/T leeanna mother Unknown Malignant neoplasmUnknown Advance Directives Date ActivatedDate PrjovhsufzyVyjkuxxi55/14/2018 5:41 AM10/26/2018 5:32 PMDate ActivatedDate ZwvqtqjtcvhYnfbjexi13/2/2018 5:39 PM10/12/2018 6:49 PMCode Status Date ActivatedDate InactivatedCommentsFull Code10/21/2018 5:41 AM10/26/2018 5:32 PMCode StatusDate ActivatedDate InactivatedCommentsFull Code10/09/2018 5:39 PM 10/12/2018 6:49 PM Advance Directive Response Recorded Date/ Time Advance Directives No August 18, 2019 3:48pm Additional Source Comments INFORMATION SOURCE (unrecogn ized section and content) DATE CREATED AUTHOR 10/27/2018 [facility] DATE CREATED AUTHOR AUTHOR'S ORGANIZ ATION 05/29/2019 [facility] DATE CREATED AUTHOR AUTHOR'S ORGANIZ ATION 01/13/2022 [facility] DATE CREATED AUTHOR AUTHOR'S ORGANIZ ATION 12/26/2022 [facility] DATE CREATED AUTHOR AUTHOR'S ORGANIZ ATION 04/16/2023 [facility] DATE CREATED AUTHOR AUTHOR'S ORGANIZ ATION 11/14/2023 [facility] DATE CREATED AUTHOR AUTHOR'S ORGANIZ ATION 08/28/2024 [facility] DATE CREATED AUTHOR AUTHOR'S ORGANIZ ATION 12/31/2024 [facility] DATE CREATED AUTHOR AUTHOR'S ORGANIZ ATION 08/20/2025 [facility] DATE CREATED AUTHOR AUTHOR'S ORGANIZ ATION 09/18/2025 [facility] EPIC REASON FOR VISIT (unrecogniz ed section and content) ReasonOnset DateCommentsMed Acjoak2309/18/2025ReasonOnset DateCommentsMed Refill 08/15/2025ReasonOnset DateCommentsMed Cnyqkt2206/19/2025ReasonCommentsDiabetes ReasonOnset VpamFfsruwgfqwnnayj81/13/2025ReasonCommentsMigraineReasonCommentsMed RefillReasonCommentsPainReasonCommentsPatient QuestionRecheck Left Knee Source Comments (unrecognize d section and content) In the event this informatio n is protected by the Federal Confidentiality of Alcohol and Drug Abuse Patient Records regulations: The Federal rules restrict any use of the information to criminally investigate or prosecute any alcohol or drug abuse patient.[facility] Care Teams (unrecognized sec tion and content) Team MemberRelationshipSpecialtyStart DateEnd Date Chacha Evans MD PCP - GeneralFamily Ibbhtsuj60/23/19Team MemberRelationshipSpecialtyStart Date End Date Chacha Evans MD [address] [place] [address] PCP - GeneralFamily Medicine04/27/23Team MemberRelationshipSpecialtyStart DateEnd Date Chacha Evans MD [address] [facility] [place] [address] PCP - GeneralFamily Medicine04/27/[address] DO [address] [place] [address] Referring PhysicianNeurology2/Team MemberRelationshipSpecialtyStart DateEnd Date Chacha Evans MD [address] [facility] [place] [address] [facility] - [facility]/27/[address] DO [address] [place] [address] Referring PhysicianNeurology2Team MemberRelationshipSpecialtyStart DateEnd Chacha Evans MD [address] [facility] [place] [address] PCP - GeneralFami Medicine04/27/[address] DO [address] [place] [address] Referring PhysicianNeurology2Team MemberRelationshipSpecialtyStart DateEnd Date Chacha Evans MD [address] [facility] [place] [address] PCP - [facility]Fa[facility]04/27/[address] DO [address] [place] [address] Referring PhysicianNeurology2/27/24Team MemberRelationshipSpecialtyStart DateEnd Date Chacha Evans MD [address] [facility] [place] [address] PCP - GeneralFamily Medicine04/27/[address] DO [address] [place] [address] Referring PhysicianNeurolog01/04/24Team MemberRelationshipSpecialtyStart DateEnd Date Chacha Evans MD [address] [facility] [place] [address] PCP - GeneralFamily Medicine04/27/[address] DO [address] [place] [address] Referring PhysicianNeurology2Team MemberRelationshipSpecialtyStart DateEnd Date Chacha Evans MD PCP - GeneralFamily Tiqdpxqm29/14/22Team MemberRelationshipSpecialtyStart Date End Date Chacha Evans MD [address] [facility] [place] [address] PCP - GeneralFamily Medicine04/27/[address] DO [address] [place] [address] Referring PhysicianNeurology2Team MemberRelationshipSpecialtyStart DateEnd Date Chacha Evans MD [address] [facility] [place] [address] PCP - GeneralFamily Medicine04/27/[address] DO [address] [place] [address] Referring PhysicianNeurology2Team MemberRelationshipSpecialtyStart DateEnd Date Chacha Evans MD [address] [facility] [place] [address] PCP - GeneralFamily Medicine04/27/[address] DO [address] [place] [address] Referring PhysicianNeurology2Team MemberRelationshipSpecialtyStart DateEnd Date Chacha Evans MD [address] [facility] [place] [address] PCP - Generalmi Medicine04/27/[address] DO [address] [place] [address] Referring PhysicianNeurology2Team MemberRelationshipSpecialtyStart DateEnd Date Chacha Evans MD [address] [facility] [place] [address] PCP - GeneralFami Medicine04/27/[address] DO [address] [place] [address] Referring PhysicianNeurology2Team MemberRelationshipSpecialtyStart DateEnd Date Chacha Evans MD [address] [place] [address] PCP - GeneralFamily Juuvdeuc30/14/22Team MemberRelationshipSpecialtyStart Date End Date Chacha Evans MD [address] [place] [address] PCP - GeneralFamily Veuoqvau18/14/22Team MemberRelationshipSpecialtyStart Date End Date Chacha Evans MD PCP - GeneralFamily Evvklqgi46/14/22Team MemberRelationshipSpecialtyStart Date End Date Chacha Evans MD PCP - GeneralFamily Gdacvrhz84/14/22Team MemberRelationshipSpecialtyStart Date End Date Chacha Evans MD PCP - GeneralFamily Vucgoety63/14/22Team MemberRelationshipSpecialtyStart Date End Date Chacha Evans MD [address] [place] [address] PCP - GeneralFamily Medicine04/27/[address] DO [address] [place] [address] Referring PhysicianNeurology2Team MemberRelationshipSpecialtyStart DateEnd Date Chacha Evans MD [address] [place] [address] PCP - GeneralFamily Medicine04/27/[address] DO [address] [place] [address] Referring PhysicianNeurology2Team MemberRelationshipSpecialtyStart DateEnd Chacha Evans MD [address] [facility] [place] [address] PCP - [facility]04/13/[address] DO [address] [place] [address] Referring PhysicianNeuromercy [facility] [place] [facility] [place]/04/24Team MemberRelationshipSpecialtyStart DateEnd Chacha Evans MD [address] [facility] [place] [address] PCP - [facility]04/13/[address] DO [address] [place] [address] Referring PhysicianNeuromercy [facility] [place] [facility] [place]/04/24 Team Status: Active Member Role Status Lindsey Evans MD Primary Care Provider Active Team Status: Inactive Member Role Status Lindsey Evans MD Primary Care Provider Active Start: June 25, 2025 End: June 25, 2025Nicole DO YeniferAttending ProviderActiveStart: June 25, 2025 End: June 25, 2025Team MemberRelationshipSpecialtyStart DateEnd Date Chacha Evans MD [address] [facility] [place] [address] PCP - [facility]04/13/[address] DO [address] [place] [address] Referring PhysicianNeurology2Team MemberRelationshipSpecialtyStart DateEnd Date Chacha Evans MD [address] [facility] [place] [address] PCP - Generalmily Medicine04/13/25 Alma Srteet DO [address] [place] [address] Referring PhysicianNeurology2Team MemberRelationshipSpecialtyStart DateEnd Date Chacha Evans MD [address] [facility] [place] [address] PCP - Generalmily Medicine04/13/[address] DO [address] [place] [address] Referring PhysicianNeurology2Team MemberRelationshipSpecialtyStart DateEnd Chacha Evans MD [address] [facility] [place] [address] PCP - Generalmily Medicine04/13/[address] DO [address] [place] [address] Referring PhysicianNeurology2Team MemberRelationshipSpecialtyStart DateEnd Date Chacha Evans MD [address] [facility] [place] [address] PCP - Generalmily Medicine04/13/[address], [address] [place] [address] Referring PhysicianNeurology2 Goals (unrecognized section and content) Goals may [...] BE BASED ON THE PRIMARY CLINICAL RECORDS. [employer] [facility]. provides no warranty or guarantee of the accuracy or completeness of information in this document.
--- OUTSIDE RECORDS SUMMARY | 2025-10-03 09:32 | XMS_ITS | Patient Health Record ---
Author Organization [facility] in [place] Address [address] [place] [address] Care Team Providers Care Seating Upholsterer Name Role Phone Anatoly Volodymyr Primary Care Provider [phone] Allergies No Known Allergies Results Component Value Reference Range Notes NM micaela perf SPECT rest str Reviewed date:12/05/2024 04:39:45 PM Interpretation: Performing Lab: Notes/Report: Source Facility: [place] [address] Nuclear Medicine Report Signed Patient: RICHELLE PELAEZ MR#: [id number] : 1965 Acct:[id number] Age/Sex: 59 / F ADM Date: 12/04/24 Loc: NM Attending Dr: Chacha Evans M.D. Ordering Physician: Chacha Evans M.D. Date of Service: 12/04/24 Procedure(s): NM micaela perf SPECT rest str Accession Number(s): [id number] cc: Chacha Evans M.D. Patient Name: RICHELLE PELAEZ MR#: [id number] : 1965 Exam Date: 12/04/2024 Ordering Doctor: DR Chacha Evans . RADIOLOGY REPORT PROCEDURE: NM MICAELA PERF SPECT REST STR COMPARISON: None. INDICATIONS: CHEST PAIN TECHNIQUE: Exam Description: Stress/Rest two day protocol gated SPECT Rest Imagin.7 mCi Tc-99m Cardiolite IV on 12/04/2024 Stress Imaging 29.4 mCi Tc-99m Cardiolite IV on 12/04/2024 Exercise Protocol: Modified Joshua Heart Rate (bpm): Rest: 88 Max: 144 PMHR: 88 Blood Pressure: Rest: 148/101 Max: 160/110 Exercise Time: Minutes: 1 Seconds: 33 Stage Reached: Stage: 1 Mets 4.2 Symptoms: Rest and peak stress ECG findings were normal and the exercise portion of the study was normal per attending physician Dr. Daily . For more details please see separate cardiac stress test report. FINDINGS: QUALITY OF STUDY: Good. PERFUSION DEFECT: LOCATION: Mid-anterior. Mid-anteroseptal. Apical inferior. SIZE: Medium (3-4 segments). SEVERITY: Mild. TYPE: Persistent. WALL MOTION: Normal. LV SIZE: Normal. 100 mL. TID / TCD: 0.8 LVEF: Abnormal. Calculated EF 53%. SUMMARY: Myocardial perfusion imaging study has ABNORMAL findings. CONCLUSION: 1. Areas of fixed perfusion abnormality in the anterior and inferior wall detailed above, no redistribution on rest images to suggest reversible ischemia 2. Low left ventricular ejection fraction of 53% 3. Normal exercise test Dictated by: Srinivasan Magdaleno MD on 12/05/2024 at 12:02 Approved by: Srinivasan Magdaleno MD on 12/05/2024 at 12:05 Dictated By: Srinivasan Magdaleno M.D. Signed By: 12/05/24 120 DD/ 04 TD/TT: Education Reporter: LIPID PROFILE Reviewed date:08/16/2025 12:41:35 PM Interpretation: Performing Lab: Notes/Report: [facility] , Triglycerides 101 <=150 mg/dL Bxgakrpxfsp042<=200 mg/dLHDL Ymuaicasczh0556-10 mg/dL <40 mg/dl - HIGH CARDIOVASCULAR RISK > or =60 mg/dl - LOW CARDIOVASCULAR RISK LDL Cholesterol Qvncxaqvol70.0 <100 mg/dl OPTIMAL 100-129 mg/dl NEAR OR ABOVE OPTIMAL 160-189 mg/dl HIGH 130-159 mg/dl BORDERLINE HIGH >190 mg/dl VERY HIGH VLDL IVIDSHOLZBP56.2Chol HDL Ratio2.2 4.4 - 7.1 AVERAGE RISK >11.0 HIGH RISK 3.3 - 4.4 LOW RISK 7.1 - 11.0 MODERATE RISK Performing Lab:see noteML - [facility] LBSGOT Reviewed date:08/16/2025 12:41:35 PM Interpretation: Performing Lab: Notes/Report: [facility] ,Aspartate Amino Qelzuyxegfs9887-17 U/LPerforming Lab:see noteML - [facility] LBSGPT Reviewed date:08/16/2025 12:41:35 PM Interpretation: Performing Lab: Notes/Report: [facility] ,Alanine Mfojsjzxizoxkjgo8396-50 U/LPerforming Lab:see noteML - [facility] LBMM tomosynthesis screening BI Reviewed date:01/30/2025 08:32:23 PM Interpretation: Performing Lab: Notes/Report: Source Facility: [place] [address] [place] [address] Mammography Report Signed Patient: RICHELLE PELAEZ MR#: [id number] : 1965 Acct:[id number] Age/Sex: 59 / F ADM Date: 01/30/25 Loc: MAMMO Attending Dr: Chacha Evans M.D. Ordering Physician: Chacha Evans M.D. Results: Date of Service: 01/30/25 Follow Up: Procedure(s): MM tomosynthesis screening BI Accession Number(s): [id number] cc: Chacha Evans M.D. Patient Name: RICHELLE PELAEZ MR#: [id number] : 1965 Exam Date: 01/30/2025 Ordering Doctor: DR Chacha Evans . RADIOLOGY REPORT PROCEDURE: MM TOMOSYNTHESIS SCREENING BI COMPARISON: MM TOMOSYNTHESIS SCREENING BI, 12/31/2023. MG MAMM DIAGNOSTIC 3D JUSTUS CAD, 12/21/2022. MG MAMM DIAGNOSTIC 3D JUSTUS CAD, 01/01/2022. MG MAMM SCREEN JUSTUS W CAD, 09/26/2011. INDICATIONS: [facility] Screening Mamm Calculator Name NCI Breast Cancer Risk Assessment Tool 5 Year Breast Cancer Risk n/a% Lifetime Breast Cancer Risk n/a% Personal Breast Cancer Yes Personal Ovarian Cancer No Treatments Breast cancer right breast Age 47 Chemo/Radiation with lumpectomy Family Cancers Mother with breast cancer at age 42; Grandmother-maternal with breast cancer at age 73. LOCATION: [facility] BREAST COMPOSITION: The breasts are almost entirely fatty. FINDINGS: Left biopsy marking clip redemonstrated. Stable benign calcifications. Stable right lumpectomy changes. DIAGNOSTIC CATEGORY 2--BENIGN FINDING: RECOMMENDATIONS: ROUTINE MAMMOGRAM AND CLINICAL EVALUATION IN 12 MONTHS. PLEASE NOTE: A NORMAL MAMMOGRAM DOES NOT EXCLUDE THE POSSIBILITY OF BREAST CANCER. A CLINICALLY SUSPICIOUS PALPABLE LUMP SHOULD BE BIOPSIED. Dictated by: Donn Watts DO on 01/30/2025 at 16:59 Approved by: Donn Watts DO on 01/30/2025 at 17:02 Dictated By: Donn Watts D.O. Signed By: 01/30/251702 DD/ 01 TD/TT: Education Reporter:XR chest 2V Reviewed date:11/14/2024 04:08:17 PM Interpretation: Performing Lab: Notes/Report: Source Facility: [place] [address] XRay Report Signed Patient: RICHELLE PELAEZ MR#: [id number] : 1965 Acct:[id number] Age/Sex: 59 / F ADM Date: 11/14/24 Loc: LAB Attending Dr: Chacha Evans M.D. Ordering Physician: Chacha Evans M.D. Date of Service: 11/14/24 Procedure(s): XR chest 2V Accession Number(s): [id number] cc: Chacha Evans M.D. [place] [id number] Patient Name: RICHELLE PELAEZ MRN: [id number] date: 1965 Sex: F Assigned Patient Location: LAB Current Patient Location: LAB Accession/Order Number: [id number] Exam Date: 11/14/2024 11:02 Report Date: 11/14/2024 15:21 At the request of: CHACHA EVANS Procedure: XR chest 2V EXAM: XR chest 2V HISTORY: Chest Pain COMPARISON: 11/14/2018 TECHNIQUE: Upright PA and lateral chest x-ray FINDINGS: The heart is not enlarged and the vasculature is not distended. No acute infiltrate, effusion or pneumothorax is identified. The osseous structures are grossly intact. XR/XR chest 2V IMPRESSION: No acute infiltrate or evidence of cardiac decompensation. The overall appearance of the chest is essentially unchanged. Electronically authenticated by: AILYN [place] Date: 11/14/2024 15:21 Dictated By: Ailyn Oh M.D. Signed By: 11/14/24 1524 DD/ 1521 TD/TT: Education Reporter:Troponin I High Sensitivity Reviewed date:11/14/2024 12:30:28 PM Interpretation: Performing Lab: Notes/Report: [facility] ,Troponin I High Sensitivity7.84.0-51.3 pg/mL NOTE: HIGH-SENSITIVITY TROPONIN ASSAY IS NOT INTENDED TO BE USED IN ISOLATION BUT SHOULD BE INTERPRETED IN CONJUNCTION HAS BEEN CONFIRMED THE DECISION THRESHOLD FOR [place] 99TH PERCENTILE = 51.4 PG/ML PERCENTILE OF cTnI DISTRIBUTION IN A REFERENCE POPULATION, REFERENCE LIMIT (URL) OF TROPONIN, DEFINED THE 99TH CUT-OFF POINTS HAVE BEEN ESTABLISHED BASED ON THE FOURTH DIAGNOSIS. UNIVERSAL DEFINITION OF MYOCARDIAL INFARCTION. THE UPPER WITH OTHER DIAGNOSTIC AND CLINICAL INFORMATION. Performing Lab:see noteML - [facility] LBTSH Reviewed date:11/14/2024 12:30:28 PM Interpretation: Performing Lab: Notes/Report: [facility] ,Thyroid Stimulating Hormone1.0150.358-3.740 uIU/mLPerforming Lab:see noteML - [facility] LBT4 Reviewed date:11/14/2024 12:30:28 PM Interpretation: Performing Lab: Notes/Report: [facility] ,T4 Cryprxhsx32.004.80-13.90 ug/dLPerforming Lab:see noteML - [facility] LBPROF 14(COMP METB) Reviewed date:11/14/2024 12:30:28 PM Interpretation: Performing Lab: Notes/Report: [facility] ,Cycvzj792966-589 mmol/LPotassium3.63.5-5.1 mmol/QKphkymbv18242-991 mmol/LCarbon Ththplq13.021.0-32.0 mmol/LAnion Gap9.8Hagusww31403-906 mg/dLBlood Urea Nitrogen 17.07.0-18.0 mg/dLCreatinine0.800.55-1.02 mg/dLEstimated GFR ( Massiel>60 >=60 mL/min/1.73m 2Estimated GFR (Non- Rita>60>=60 mL/min/1.73m 2BUN Creatinine Ratio21.8Vayhunb3.68.5-10.1 mg/dLBilirubin Total0.70.2-1.0 mg/dL Aspartate Amino Sedjvjvlcsk3373-15 U/LAlanine Uqzxnrezizrnlsxq9976-11 U/L Alkaline Ktafmotlycy18880-625 U/LTotal Protein7.96.4-8.2 g/dLAlbumin Level3.9 3.4-5.0 g/dLGlobulin4.0Albumin Globulin Ratio1.0Performing Lab:see noteML - [facility] LBFREE T3 Reviewed date:11/14/2024 12:30:28 PM Interpretation: Performing Lab: Notes/Report: [facility] ,Free T32.222.18-3.98 pg/mLPerforming Lab:see noteML - [facility] LB CBC AUTO DIFF Reviewed date:11/14/2024 12:30:28 PM Interpretation: Performing Lab: Notes/Report: [facility] ,White Blood Count9.94.0-11.0 10 3/uLRed Blood Count5.014.20-5.40 10 6/uL Ecbdngxwcc46.712.0-16.0 g/pMSlnrvazsgh88.836.0-48.0 %Mean Corpuscular Uoxjmi88.4 81.0-99.0 fLMean Corpuscular Qxyylffntz83.326.7-34.0 pgMean Corpuscular HGB Conc 32.829.9-35.2 g/dLRed Cell Distribution Width13.411.0-15.0 %Platelet Fhtwt128 150-450 10 3/uLMean Platelet Itfbir91.49.5-13.5 fLNeutrophils Percent Auto65.5 43.0-75.0 %Lymphocytes Percent Auto21.020.5-60.0 %Monocytes Percent Auto10.01.7- 12.0 %Eosinophils Percent Auto2.20.9-7.0 %Basophils Percent Auto1.00.2-2.0 % Immature Granulocytes Pct Auto0.30.0-0.5 %Neutrophils Absolute Auto6.51.4-6.5 10 3/uLLymphocytes Absolute Auto2.11.2-3.8 10 3/uLMonocytes Absolute Auto1.00.3-0.8 10 3/uLEosinophils Absolute Auto0.20.0-0.7 10 3/uLBasophils Absolute Auto0.10.0- 0.1 10 3/uLImmature Granulocytes Abs Auto0.030.00-0.03 10 3/uLPerforming Lab:see noteML - [facility] LBLIPASE Reviewed date:11/14/2024 12:30:28 PM Interpretation: Performing Lab: Notes/Report: [facility] ,Xuobzj69.016.0-77.0 U/LPerforming Lab:see noteML - [facility] LBCRP Reviewed date:11/14/2024 12:30:28 PM Interpretation: Performing Lab: Notes/Report: [facility] ,C Reactive Protein0.94<=0.50 mg/dLPerforming Lab:see noteML - [facility] LBBNP Reviewed date:11/14/2024 12:30:28 PM Interpretation: Performing Lab: Notes/Report: [facility] ,NT Pro B Type Natriuretic Pept51.0<=900.0 pg/mLPerforming Lab:see noteML - [facility] LB Reason For Referral Diagnosis 1 Chest pain (R07.9) Referral Organization [facility] Referring Provider First Name Volodymyr Referring Provider Last Name Anatoly [facility]erring [facility] Referred Provider Specialty Cardiology Referral Priority Routine Medications Medication SIG (Take, Route, Frequency, Duration) [...] allow to dissolve Orally PRN; Duration: 30 lhfdQOD87ctivemetFORMIN HCl 500 MG1 tablet with a meal Orally Once a day; Duration: 30 days09/03/2023ctive Metoprolol Succinate ER 50 MG1 tablet Orally Once a dayCardioActive Social History Tobacco Use: Social History Observation Description Date Details (start date - stop date) Never Smoker NA - NA Tobacco Use/Smoking Question Answer Notes Patient is a nonsmoker Alcohol Screen (Audit-C) Question Answer Notes Did you have a drink containing alcohol in the p ast year? Yes How often did you have 6 or more drinks on one occasion in the past year?Never (0 point)How many drinks did you have on a typical day when you were drinking in the past year?1 or 2 drinks (0 point)How often did you have a drink containing alcohol in the past year?Weekly (3 points)Qisunj3JwhnsswtwnxkcuErhdjefvSNAWV-K (Standard) Question Answer Notes Did you have [...] year?2 to 4 times a month (2 points)Vtqbwm1Ecvimmxdxycohn Negative Problems Problem Type SNOMED Code ICD Code Onset Dates Problem Status W/U Status Risk Notes Problem Thyrotoxicosis (31407795) Thyrot oxicosis, unspecified without thyrotoxic crisis or storm (E05.90) ActiveconfirmedProblemMigraine without aura, not refractory (disorder) (277968392)Migraine, unspecified, not intractable, without status migrainosus (G43.909)ActiveconfirmedProblemInsomnia (877874160)Insomnia, unspecified (G47.00)ActiveconfirmedProblemChest pain (72464958)Chest pain (R07.9)Active confirmedProblemAsthma (382065220)Asthma (J45.909)ActiveconfirmedProblem Hypothyroidism (57879013)Hypothyroidism (E03.9)ActiveconfirmedProblemWell adult (819591434)Well adult (Z00.00)ActiveconfirmedProblemAcquired hallux valgus (94864084)Bunion of right foot (M20.11)ActiveconfirmedProblemDiabetes mellitus (09001587)Diabetes mellitus (E11.9)Activeconfirmed Vital Signs Temperature 97.8 degrees Fahrenheit 03/16/2025 Blood pressure mm Hg10/01/20259879Ywdzto94 in10/01/2025lood pressure babcqqkp131 mm Hg10/01/20251757Gbvfgm876.8 lbs112/01/2024BMI43.49 kg/m210/01/2025 Procedures Procedure Date Ordered Date Performed Result Body Sit e CARDIO Stress Test - Cardiolite 11/14/2024 N/RNryrmypkwwkpyj57/01/2025N/AEKG w Interp & Report - gqqwtbetz35/10/2025N/A Encounters Encounter Location Date Provider Diagnosis [facility] [address] [place] [address] 01/01/2025 [facility] [place] [address] 01/30/2025[facility] [facility] [place] [address]/11/2024Doug HoyEjection fraction < 50% R94.30[facility] [facility] [place] [address]/10/2025[facility] [facility] [place] [address]/05/2025 Volodymyr [facility] [facility] [place] [address]/05/2025[facility] [facility] [place] [address]/[facility]oyC[facility] pain R07.9[facility] [place] [address]/11/2024[facility] [facility] [place] [address]/01/2025 [facility] [facility] [address] [place] [address]/05/2025Doug HoyChest pain R07.9B[address] [place] [address]/Doug HoyAcute non-recurrent sinusitis, unspecified location J01.90 and Nasal congestion R09.[address] [place] [address]/07/2025 Volodymyr HoyStrep throat J02.[address] [place] [address]/Doug HoyWell adult Z00.00 ; Diabetes mellitus E11.9 and [address]othy[address] E03.[address] [address]/08/2025Doug HoyPre-procedural examination Z01.818 ; Diabetes mellitus E11.9 and Bunion of right foot M20.11 Assessments Encounter Date Diagnosis (ICD Code) Assessment Notes Treatment Notes Treatment Clinical Notes Section Notes 11/14/2024 Chest pain (ICD-10 - R07.9) 5Acute non-recurrent sinusitis, unspecified location (ICD-10 - J01.90) Rest and drink more liquids, especially water. You may use a humidifier or vaporizer to help keep the drainage moist. Womx-ciq-xyqibzn Nasal Saline may help the stuffy and runny nose. Use Ibuprofen and or Tylenol as needed for fever, chills, body aches or pain. Children 5 years old should not be given vffo-dsb-zuhimdx cough and cold medications such as guaifenesin and dextromethorphan. If you're over age 5, you may try vsye-nlr-fleacvx cold medications such as guaifenesin and dextromethorphan, or multi-symptom cold reliever such as Dayquil to help reduce the symptoms. Antibiotics have been pre scribed. You should take these until completed and follow the directions. Antibiotics can sometimescause upset stomach, and in rare cases, serious allergic reactions or serious gastrointestinal problems. If you start having severe abdominal pain, severe vomiting, or bloody diarrhea, you should be r eevaluated by your physician or urgent care immediately. Follow up with your Primary Care Provider or return to clinic if symptoms do not improve within 3-5 days03/16/2025Strep throat (ICD-10 - J02.0)You have been prescribed antibiotics for strep throat. Antibiotics may bother your stomach, so try taking them with a light meal (unless instructed otherwise by your pharmacist). It is important to take them until they are finished. You can use ukne-nuw-rarywxu acetaminophen or ibuprofen if needed for pain. You can also use throat lozenges or gargle warm water to help with the sore throat. You are contagious until you have been on antibiotics for 24 hours. You should be extra vigilant about hand washing or using hand liquor grinder mill operator gel. You should follow up with your Primary Care Physician or return to clinic if not improving in the next 3-5 days.08/17/2025Pre- procedural examination (ICD-10 - Z01.818)08/17/2025Diabetes mellitus (ICD-10 - E11.9)Cleared for OR - no cd - no llagouk37/28/2025Chest pain (ICD-10 - R07.9) 02/06/2025Ejection fraction < 50% (ICD-10 - R94.30)10/01/2025Well adult (ICD-10 - Z00.00)10/01/2025Diabetes mellitus (ICD-10 - E11.9)10/01/2025Hypothyroidism (ICD-10 - E03.9)5Bunion of right foot (ICD-10 - M20.11)01/05/2025Nasal congestion (ICD-10 - R09.81) Plan Of Treatment Pending Test Test Name Order Date CMP (COMPLETE METABOLIC PANEL) 3 CMP (COMPLETE METABOLIC PANEL) 4 CMP (COMPLETE METABOLIC PANEL) 5 HEMOGLOBIN A1C (GLYCO) 10/01/2025 HEMOGLOBIN A1C (GLYCO) 09/29/2024 HEMOGLOBIN A1C (GLYCO) 09/03/2023 IRON, TOTAL 09/03/2023 IRON, TOTAL 09/29/2024 IRON, TOTAL 10/01/2025 LIPID PANEL (CHOL/TRIG/HDL/LDL) 10/01/20 25 LIPID PANEL (CHOL/TRIG/HDL/LDL) 09/29/20 24 LIPID PANEL (CHOL/TRIG/HDL/LDL) 09/03/20 23 CBC WITH DIFF (EXP 09/2025) 09/03/2023 CBC WITH DIFF (EXP 09/2025) 09/29/2024 CBC WITH DIFF (EXP 09/2025) 11/14/2024 VITAMIN D, 25 LEVEL (TOTAL) 10/01/2025 VITAMIN D, 25 LEVEL (TOTAL) 09/03/2023 Echocardiogram 02/06/2025 EKG w Interp & Report - performed 2024 T3 FREE, T4 FREE and TSH 09/04/2023 CARDIO Stress Test - Cardiolite 11/14/19 25 Insulin Level 09/03/2023 Insulin Level 10/01/2025 High Sensitivity Troponin 11/14/2024 STOOL OCCULT BLOOD 10/01/2025 STOOL OCCULT BLOOD 09/29/2024 XR CHEST 2 V 11/14/2024 THYROID PANEL (T4/TSH/FREE T3) 5 THYROID PANEL (T4/TSH/FREE T3) 5 THYROID PANEL (T4/TSH/FREE T3) 4 THYROID PANEL (T4/TSH/FREE T3) 3 MM screening mammo BI 01/05/2025 CMP (COMP MET MA) w/eGFR CKD-EPI 2024 CBC WITH DIFF 10/01/2025 Insurance Providers Payer Name Payer Address Payer Phone Subscriber Number Group Number Insured Name Patient Relationship to Insured Coverage Start Date Coverage End Date [employer] [address] [address] [place] [address] [phone] [id number] BenignoRichelle Self - patient is the insured 3 Medical (General) History Medical History History ICD Code Insomnia G47.00 Migraine G43.909 COVID-19 U07.1 Asthma J45.909 Diabetes mellitus E11.9 Hypothyroid E03.9 Breast cancer C50.919 Ovarian cancer C56.9 Surgical History Surgery Date(Month/Year) growth removal from right foot 2024 Left foot- 3rd toe surgery 2023 Left knee replacement Total Hysterectomy
--- OUTSIDE RECORDS SUMMARY | 2025-10-03 09:32 | XMS_ITS | Clinical Summary ---
Author Organization [facility] Address [address] [place] [address] Care Team Providers Care Water And Fire Technician Name Role Phone Nick Ledbetter MD Primary Care Provider [phone] Allergies No known active allergies Medications MedicationSigDispense QuantityRefillsLast FilledStart DateEnd DateStatus doxepin (SINEquan) 10 mg capsule Take 20 mg by mouth at bedtime.Active amLODIPine (Norvasc) 10 mg tablet Take 10 mg by mouth in the morning.03/14/2023ctive levothyroxine (Synthroid, Levoxyl) 150 mcg tablet Take 150 mcg by mouth before breakfast.09/19/2012ctive simvastatin (Zocor) 20 mg tablet Take 20 mg by mouth in the evening.Active metFORMIN (Glucophage) 500 mg tablet Use 1 tablet in the mouth or throat 1 (one) time each day.10/21/2022ctive ProAir HFA 90 mcg/actuation inhaler Inhale 2 puffs every 4 (four) hours.08/13/2017Active Nurtec ODT 75 mg tablet,disintegrating DISSOLVE 1 TABLET ON THE TONGUE DAILY EVERY OTHER DAY NEEDED FOR MIGRAINE 07/04/2024ctive aspirin 81 mg EC tablet Indications:Coronary artery disease involving [place] coronary artery of [place] heart with other form of angina pectorisTake 1 tablet (81 mg) by mouth in the morning. 30 tablet 11002/05/63710602/05/2026ctive metoprolol succinate XL (Toprol-XL) 100 mg 24 hr tablet Indications:Essential hypertensionTake 1 tablet (100 mg) by mouth in the morning. Do not crush or chew. 30 tablet 111/696338/ctive Active Problems ProblemNoted DateDiagnosed DateCoronary artery disease involving [place] coronary artery of [place] heart02/17/2025typical chest pain12/17/2024bnormal stress test12/17/20244684Bzvsgbnqqftcsr05/09/2025Morbid cnjnaai8912/17/2024ongenital deformity of toe04/30/2023orns and fentdwjxbbo33/23/7796Esjdkppsoclqy37/23/2023 Pain in both feet04/30/2023osterior tibial tendinitis of right lower extremity 04/30/2023Venous wfvguczmxdxmg91/23/2023Nonhealing surgical wound11/16/2018 Efphzxauach37/01/2018Complex endometrial hyperplasia with ewrxor9010/07/2018Well woman exam (no gynecological exam)10/04/2018Breast axbvgn9205/21/2017 Overview (12/15/2024): Right breast 2011 Diabetes mellitus type II, non insulin ewbvwpdht52/14/2017Essential hypertension 05/21/2017History of breast hnauop3706/27/2014DCIS (ductal carcinoma in situ) 08/11/2013Irregular bxsmrl4304/20/2013Subjective roikquqj20/31/2004 Resolved Problems ProblemNoted DateDiagnosed DateResolved DateRespiratory failure, unspecified with zyszbzq48 Encounters DateTypeDepartmentCare WanhSchlpuryjli10/10/2025 3:00 PM EDTOffice Visit [address] [address] Karen Cruz MD Coronary artery disease involving [place] coronary artery of [place] heart without angina pectoris (Primary Dx); Essential hypertension; Pure hypercholesterolemia; Diabetes mellitus type II, non insulin dependent (CMS/HCC); Morbid obesity (CMS/HCC); Acquired rxojurazysqrlz69/10/2025Orders Only [address] [address] Yuliana Russo MA Hyperlipidemia, unspecified hyperlipidemia type (Primary Dx)08/17/2025Orders Only [address] [address] Karen Flores MD from Last 3 Months Family History Medical HistoryRelationNameCommentsHeart diseaseFatherBreast cancerMother RelationNameStatusCommentsFatherAliveMotherDeceased Social History Tobacco UseTypesPacks/DayYears UsedDateSmoking Tobacco: NeverSmokeless Tobacco: Never Tobacco Cessation:Counseling Given: Not Answered Alcohol UseStandard Drinks/WeekCommentsNot Currently0 (1 standard drink = 0.6 oz pure alcohol)CommentsNoSex and Gender InformationValueDate RecordedSex Assigned at WbjfxPaytac81/20/2025 6:41 AM EDTLegal ZtjCuzkck32/29/2022 10:18 PM EDTGender ZlesompgMlvcii70/20/2025 6:41 AM EDTSexual OrientationChoose not to sjecplyk67/20/2025 6:41 AM EDT Last Filed Vital Signs Vital SignReadingTime TakenCommentsBlood Bwhjczgx504/8510 2:53 PM EDT Llyms951508/17/2025 2:53 PM EDTTemperature--Respiratory Leiy912601/25/2025 8:40 AM EDTOxygen Arszunnvke88%08/17/2025 2:53 PM EDTInhaled Oxygen Concentration-- Qvthwq010 kg (238 lb)08/17/2025 2:53 PM UFBEurqbh227.5 cm (5' 2 )08/17/2025 2:53 PM EDTBody Mass Index43.5308/17/2025 2:53 PM EDT Plan of Treatment Health MaintenanceDue DateLast DoneCommentsCT Tcgmvtvigwjo1967Colonoscopy 1967Colorectal Cancer Mqghiufdb1967Diabetes: Hemoglobin A1C 1967FIT-DNA1967FIT1967FOBT1967 1334Ghuervcveppnk1967 Diabetes: Retinopathy Sytlecxoz16/14/1977Depression Pcmdevdsn23/14/1979Hepatitis B Vaccines (1 of 3 - 19+ 3-dose series)1986Pneumococcal Vaccine: Pediatrics (0 to 5 Years) and At-Risk Patients (6 to 64 Years) (1 of 2 - PCV) 1986Pap Smear1988Adult Asqwtrf2903/21/1989Cervical Cancer Screening 1997HPV/Wvyvod6603/21/1997Zoster Vaccines (1 of 2)2017COVID-19 Vaccine ( season)5011/21/2021, 02/27/2021, 02/06/2021Influenza Vaccine (#1)2025Diabetes: Urine Protein Koplnumyr31/18/430772 QkvzphbgsSccogtqvmgxi63/08/2019HIB VaccinesAged OutNo longer eligible based on patient's age to complete this topicHPV VaccinesAged OutNo longer eligible based on patient's age to complete this topicIPV VaccinesAged OutNo longer eligible based on patient's age to complete this topicMeningococcal B VaccineAged OutNo longer eligible based on patient's age to complete this topicMeningococcal VaccineAged OutNo longer eligible based on patient's age to complete this topic Rotavirus VaccinesAged OutNo longer eligible based on patient's age to complete this topic Procedures Procedure NamePriorityDate/TimeAssociated DiagnosisCommentsECG 12-LEADRoutine 08/17/2025 2:55 PM EDTfrom Last 3 Months Results * ECG 12 lead (08/17/2025 2:55 PM EDT) Narrative Authorizing ProviderResult TypeResult StatusHistorical Provider MDECG ORDERABLES Final Result from Last 3 Months Insurance Care Teams Team MemberRelationshipSpecialtyStart DateEnd Date Nick Ledbetter MD [address] [facility] [address] [address] [facility] - General12/15/24
--- OUTSIDE RECORDS SUMMARY | 2025-10-03 09:32 | XMS_ITS | Encounter Summary ---
Author Organization [facility] Address [address] [place] [address] Care Team Providers Care Dyeing Machine Tender Name Role Phone Alma Street DO Unavailable Nick Ledbetter MD Primary Care Provider [phone] Encounter Details DateTypeDepartmentCare Team (Latest Contact Info)Thbfbpyihyx10/17/2025Travel Social History Tobacco UseTypesPacks/DayYears UsedDateSmoking Tobacco: NeverSmokeless Tobacco: NeverAlcohol UseStandard Drinks/WeekCommentsYes0 (1 standard drink = 0.6 oz pure alcohol)caffeine intake: 1-2 cups per day.CommentsUnknownSex and Gender InformationValueDate RecordedSex Assigned at BirthNot on fileLegal SexFemale 01/20/2023 6:52 PM EDTGender IdentityNot on fileSexual OrientationNot on file documented as of this encounter Plan of Treatment DateTypeDepartmentCare Team (Latest Contact Info)Lygielpwaay14/15/2025 2:30 PM ESTOffice Visit [facility] [place] [facility] [address] [place] [address] Meghann Hinojosa DPM [address] [place] [address] 11/05/2025 4:30 PM ESTProcedure Visit [facility] [place] [facility] [address] [place] [phone] Meghann Hinojosa DPM [address] [facility] [address] [place] [address] 09/19/2027 11:30 AM ESTOffice Visit [facility] [address] [place] [address] Chris Nielsen PA [address] [place] [address] documented as of this encounter Visit Diagnoses Not on filedocumented in this encounter Care Teams Team MemberRelationshipSpecialtyStart DateEnd Date Nick Ledbetter MD [address] [facility] [place] [address] PCP - GeneralFamily Medicine04/13/[address] DO [address] [place] [address] Referring PhysicianNeurology2/documented as of this encounter
--- OUTSIDE RECORDS SUMMARY | 2025-10-03 09:32 | XMS_ITS | Clinical Summary ---
Author Organization [facility] Address [address] [place] [address] Care Team Providers Care Anthropologist Physical Name Role Phone Alma Street DO Unavailable [phone] Nick Ledbetter MD Primary Care Provider [phone] Allergies No known active allergies Medications MedicationSigDispense QuantityRefillsLast FilledStart DateEnd DateStatus fluocinonide (Lidex) 0.05 % ointment APPLY TOPICALLY TO HANDS AND KNEES TWICE DAILY03/10/2023ctive amLODIPine (Norvasc) 10 MG tablet Take 10 mg by mouth in the morning.03/14/2023ctive simvastatin (Zocor) 20 MG tablet Take 20 mg by mouth in the evening.03/18/2023ctive levothyroxine (Synthroid, Levoxyl) 150 MCG tablet Daily.04/16/2023ctive metFORMIN (Glucophage) 500 MG tablet Take 500 mg by mouth in the evening. Take with meals.10/21/2022ctive albuterol HFA (ProAir HFA) 90 mcg/act inhaler every 4 (four) hours.Active levoFLOXacin (Levaquin) 500 MG tablet Take 1 tablet by mouth in the morning.10/22/2022ctive amoxicillin (Amoxil) 500 MG tablet Indications:History of left knee replacement4 tabs PO once 30-60 mins before procedure with food 4 tablet 5Active doxepin (SINEquan) 10 MG capsule Indications:Insomnia, unspecified typeTake 1-3 capsules at bed time 120 capsule 5Active amoxicillin (Amoxil) 500 MG tablet Indications:History of left knee replacement4 tabs PO once 30-60 mins before procedure with food 4 tablet 5Active oxyCODONE-acetaminophen (Percocet) 5-325 MG tablet Indications:Tailor's bunion of right footTake 1 tablet by mouth every 6 (six) hours for 5 days 20 tablet Expired Active Problems ProblemNoted DateDiagnosed DateCorns and vfwyzxgtxhk12/23/2023ain in both feet 04/30/20239811Ivaqihctihmfe97/23/2023Venous mhaarmqipracq95/23/2023osterior tibial tendinitis of right lower veaqqrwpm40/23/2023ongenital deformity of toe 04/30/2023 Encounters DateTypeDepartmentCare EsggHbalslaqgig51/18/2025 2:00 PM ESTOffice Visit [facility] [address] [place] [address] Meghann Hinojosa DPM Surgery follow-up examination (Primary Dx); Tailor's bunion of right foot; Right foot pain09/25/20254476Tubywq15/17/7036Gzzqvo08/14/2025 11:30 AM ESTOffice Visit [facility] [address] [place] [address] Chris Nielsen PA Acute pain of left knee (Primary Dx); History of left knee ifubeooxjqh87/14/2025 11:15 AM ESTAncillary Procedure [facility] [address] [place] [phone] 09/21/2025amboo flowsheet [facility] [address] [place] [address] Chris Nielsen PA 09/21/20256328Npwdis11/10/2025 4:15 PM ESTOffice Visit [facility] [address] [place] [address] Meghann Hinojosa DPM Surgery follow-up examination (Primary Dx)09/17/2025amboo flowsheet [facility] [place] [facility] [address] [place] [address] Meghann Hinojosa DPM 09/17/20258269Ubavki98/08/6116Iyqorg11/05/2025Telephone [facility] [address] [place] [address] Dixie Estrada MA Qcstagpsrsw11/28/2025 4:45 PM EDTOffice Visit [facility] [address] [place] [address] Meghann Hinojosa, DPM Tailor's bunion of right foot (Primary Dx); Right foot pain09/04/2025amboo flowsheet [facility] [address] [place] [address] Meghann Hinojosa DPM 09/04/20253889Iosvny10/25/5666Jnptao74/21/2025bstract [facility] [place] [facility] [address] [place] [address] Meghann Hinojosa DPM 08/15/2025Telephone [facility] [address] [place] [address] Chris Nielsen, [place] Med Togtma6007/30/2025 4:00 PM EDTProcedure Visit [facility] [place] [facility] [address] [place] [address] Meghann Hinojosa, DPM Corns and callosities (Primary Dx); Pain in both feet; Onychomycosis; Type 2 diabetes mellitus without complication, without long-term current use of insulin ([facility])07/30/2025amboo flowsheet [facility] [place] [facility] [address] [place] [address] Meghann Hinojosa DPM 07/30/20254502Vxjnxz08/16/0143Mjbrlc22/12/2025Orders Only [facility] [address] [place] [address] Dixie Estrada MA Pre-op testing (Primary Dx)07/04/2025Telephone [facility] [address] [place] [address] Dixie Estrada MA Schedule Sxfrom Last 3 Months Family History * Patient is adopted Medical HistoryRelationNameCommentsHeart diseaseFatherStrokeMaternal Grandfather CancerMaternal GrandmotherDiabetesMaternal GrandmotherStrokeMaternal Grandmother Breast cancerMotherRelationNameStatusCommentsFatherAliveMaternal Grandfather Maternal GrandmotherMotherDeceased Social History Tobacco UseTypesPacks/DayYears UsedDateSmoking Tobacco: NeverSmokeless Tobacco: Never Tobacco Cessation:Counseling Given: Not Answered Alcohol UseStandard Drinks/WeekCommentsYes0 (1 standard drink = 0.6 oz pure alcohol)caffeine intake: 1-2 cups per day.CommentsUnknownSex and Gender InformationValueDate RecordedSex Assigned at BirthNot on fileLegal SexFemale 01/20/2023 6:52 PM EDTGender IdentityNot on fileSexual OrientationNot on file Last Filed Vital Signs Vital SignReadingTime TakenCommentsBlood Qxewctpk827/9808 4:34 PM EDT Nfhaa077807/04/2024 4:34 PM EDTTemperature--Respiratory Rate--Oxygen Bhkldmcwiw12% 07/04/2024 4:34 PM EDTInhaled Oxygen Concentration--Wvfscu157 kg (230 lb) 07/05/2023 3:19 PM JQWMopzei440.5 cm (5' 2 )07/05/2023 3:19 PM EDTBody Mass Index42.0707/05/2023 3:19 PM EDT Plan of Treatment DateTypeDepartmentCare Team (Latest Contact Info)Wnklbzmgtlv96/15/2025 2:30 PM ESTOffice Visit [facility] [address] [place] [address] Meghann Hinojosa, DPM [address] [place] [address] 11/05/2025 4:30 PM ESTProcedure Visit [facility] [address] [place] [address] Meghann Hinojosa, DPM [address] [place] [address] 09/19/2027 11:30 AM ESTOffice Visit [facility] [address] [place] [address] Chris Nielsen PA [address] [place] [address] Health MaintenanceDue DateLast DoneCommentsCT Aeeoeonwiklp1967Colonoscopy 1967Colorectal Cancer Esrrkthmq1967FIT-DNA1967FIT1967 FOBT1967 7619Qiwucczqaooyk1967Pap Smear03/21/19883549Owvjrpbvb04/08/2020 11/15/2018, 10/25/2017, 10/28/2016, Additional history existsCervical Cancer Rzzjigqnz57/28/2023HPV/Vfrhuk29COVID-19 Vaccine ( season)5011/21/2021, 02/27/2021, 02/06/2021Influenza Vaccine (#1) 2025Pneumococcal Vaccine: Pediatrics (0 to 5 Years) and At-Risk Patients (6 to 64 Years)Aged OutNo longer eligible based on patient's age to complete this topic Procedures Procedure NamePriorityDate/TimeAssociated DiagnosisCommentsXR KNEE 1-2 VIEWS XLLUZqomtaa04/14/2025 11:13 AM EST Acute pain of left knee XR FOOT 3+ VIEWS YJHCMBstplml34/10/2025 4:33 PM EST Surgery follow-up examination from Last 3 Months Results * XR knee 1 or 2 [...] left total knee arthroplasty Authorizing ProviderResult TypeResult StatusMataz Nielsen PAI XR PROCEDURES Final Result * XR foot 3+ views right (09/17/2025 4:33 PM EST)Anatomical RegionLaterality ModalityLower Extremities, FootRightRadiographic ImagingSpecimen (Source) Anatomical Location / LateralityCollection Method / VolumeCollection Time Received Time Narrative 09/17/2025 4:33 PM EST Imaging Result: Three views of the right foot: AP, MO, LAT were performed today in the office. Radiographs were read by myself and demonstrate: No evidence of acute fracture or dislocation. Normal joint spaces noted with no evidence of narrowing or osteophyte formation. ??Resection of the bone along the lateral 5th metatarsal head Authorizing ProviderResult TypeResult StatusMeghann Hinojosa DPMIMG XR PROCEDURESFinal Result from Last 3 Months Insurance Care Teams Team MemberRelationshipSpecialtyStart Date Nick Ledbetter MD [address] [place] [address] PCP - GeneralFamily Medicine04/13/[address] DO [address] [place] [address] Referring PhysicianNeurology2
--- OUTSIDE RECORDS SUMMARY | 2025-10-03 09:32 | XMS_ITS | Clinical Summary ---
Author Organization [facility] Address [address] [place], [place] [address] Care Team Providers Care Mail Delivery Supervisor Name Role Phone Nick Ledbetter MD Primary Care Provider [phone] Allergies No known active allergies Medications MedicationSigDispense QuantityRefillsLast FilledStart DateEnd DateStatus MULTIVITAMIN TABLET Active amitriptyline 25 mg tablet Take 1 tablet by mouth daily at bedtime.ctive levothyroxine (SYNTHROID) 150 mcg tablet Take 1 tablet by mouth once daily.ctive verapamil PM 200 mg CPCT Take 200 mg by mouth daily at bedtime.ctive lisinopril (ZESTRIL, PRINIVIL) 5 mg tablet TK 1 T PO QDActive metFORMIN ER (GLUCOPHAGE XR) 500 mg 24 hr tablet TK 2 TS PO BID WITH A BXFL573Active PROAIR HFA 90 mcg/actuation inhaler 08/13/2017Active amLODIPine (NORVASC) 10 mg tablet TK 1 T PO QD10/13/2020Active Active Problems ProblemNoted DateDiagnosed DateHistory of breast sibkvo6006/27/2014DCIS (ductal carcinoma in situ)08/11/2013Irregular cpvdeh1804/20/2013Subjective tinnitus 07/08/2004 Family History Medical HistoryRelationCommentsCancerMaternal GrandmotherbreastCancerMother breastCancerPaternal GrandmotherRelationStatusCommentsMaternal GrandmotherMother DeceasedBreast CAPaternal Grandmother Social History Tobacco UseTypesPacks/DayYears UsedDateSmoking Tobacco: NeverSmokeless Tobacco: NeverAlcohol UseStandard Drinks/WeekCommentsNot Asked0 (1 standard drink = 0.6 oz pure alcohol)PHQ-2AnswerDate RecordedPHQ-2 zlnxv63412/31/2019Area Deprivation IndexAnswerDate RecordedNational Score (1-100), lower number is lower risk64 03/30/2023State Score (1-10), lower number is lower tpbt3883Data from: https://www.neighborhoodatlas.[facility].edu/. Last address used for [address]CommentsNoSex and Gender Information ValueDate RecordedSex Assigned at BirthNot on fileLegal YpxAnajej68/02/2012 10:03 AM ESTGender IdentityNot on fileSexual OrientationNot on file Last Filed Vital Signs Vital SignReadingTime TakenCommentsBlood Xeedlhft072/8601/15/2022 11:48 AM EST Avmde3520 11:48 AM PSSZoqwtwxoddu40.5 ??C (97.7 ??F)01/15/2022 11:48 AM ESTRespiratory Hbnz769001/15/2022 11:48 AM ESTOxygen Qogbtqkfue40%01/15/2022 11:48 AM ESTInhaled Oxygen Concentration--Lexbyg438.9 kg (249 lb)01/15/2022 11:48 AM NITZfeunz429.5 cm (5' 2.01 )08/19/2017 1:15 PM EDTBody Mass Index45.5308/19/2017 1:15 PM EDT Plan of Treatment Health MaintenanceDue DateLast DoneCommentsAnxiety Zkqmqfray39/14/1985Depression Mtmzlrqih67/14/1985HIV Dmjmbmnjd68/14/1985Hepatitis C Mnrvppmnr33/14/1985 DTaP,Tdap,Td Vaccine (1 - Tdap)1986Hepatitis B Vaccine (1 of 3 - 19+ 3- dose series)1986Cervical Cancer Dspgxjove02/14/1988Mammogram Screening 2007CT Rfbyyijgybim40/14/2012Cologuard (FIT-DNA)2012Colonoscopy 2012Colorectal Cancer Hytfjemnk04/14/2012Fecal Occult Blood2012Lipid Hwktxefio21/14/1223Loabvdvmcqblp94/14/2012Pneumococcal Vaccine: 50+ (1 of 1 - PCV)2017Shingrix Vaccine (1 of 2)2017Diabetes Nqkagtruk06/06/2022 12/14/2018, 11/07/2018, 10/26/2018, Additional history existsCovid-19 Vaccine (2024- season)5011/21/2021, 02/27/2021, 02/06/2021Influenza Vaccine (#1)2025 Care Teams Team MemberRelationshipSpecialtyStart DateEnd Date Nick Ledbetter MD PCP - GeneralFamily Xilnqotu14/23/19
--- OUTSIDE RECORDS SUMMARY | 2025-10-03 09:32 | XMS_ITS | Encounter Summary ---
Author Organization [facility] Address [address] [place] [address] Care Team Providers Care Bakery Technician Name Role Phone Alma Street DO Unavailable [phone] Nick Ledbetter MD Primary Care Provider [phone] Encounter Details DateTypeDepartmentCare Team (Latest Contact Info)Jawbumrsnuo44/14/2025Travel Social History Tobacco UseTypesPacks/DayYears UsedDateSmoking Tobacco: NeverSmokeless Tobacco: NeverAlcohol UseStandard Drinks/WeekCommentsYes0 (1 standard drink = 0.6 oz pure alcohol)caffeine intake: 1-2 cups per day.CommentsUnknownSex and Gender InformationValueDate RecordedSex Assigned at BirthNot on fileLegal SexFemale 01/20/2023 6:52 PM EDTGender IdentityNot on fileSexual OrientationNot on file documented as of this encounter Plan of Treatment DateTypeDepartmentCare Team (Latest Contact Info)Mnmfhcnelpv58/15/2025 2:30 PM ESTOffice Visit [facility] [place] [facility] [address] [place] [address] Meghann Hinojosa DPM [address] [place] [address] 11/05/2025 4:30 PM ESTProcedure Visit [facility] [place] [facility] [address] [place] [address] Meghann Hinojosa DPM [address] [facility] [address] [place] [address] 09/19/2027 11:30 AM ESTOffice Visit [facility] [address] [place] [address] Chris Nielsen PA [address] [place] [address] documented as of this encounter Visit Diagnoses Not on filedocumented in this encounter Care Teams Team MemberRelationshipSpecialtyStart DateEnd Date Nick Ledbetter MD [address] [facility] [place] [address] PCP - GeneralFamily Medicine04/13/[address] DO [address] [place] [address] Referring PhysicianNeurology2/documented as of this encounter
--- OUTSIDE RECORDS SUMMARY | 2025-10-03 09:32 | XMS_ITS ---
Author Organization [employer] [facility] tem Address [facility] [id number] [place] [address] Care Team Providers Care Diagnostic Sales Specialist Name Role Phone Nick Ledbetter MD Primary Care Provider [phone] Active Problems ProblemNoted DateDiagnosed DateNonhealing surgical wound11/16/2018Respiratory failure, unspecified with kiqtdrf7110/21/20187394Vafkzqosfnk92/01/2018Complex endometrial hyperplasia with iwttwe0710/07/2018Well woman exam (no gynecological exam)10/04/20184558Qkonatmadclt11/14/2017DM type 2 (diabetes mellitus, type 2) 05/21/2017Breast gbwcig8405/21/2017 Overview (05/21/2017): Right breast 2011 History of breast ulksaj6406/27/2014DCIS (ductal carcinoma in situ)08/11/2013 Current Treatment and Therapy Plans No current plan information found. Other Current Plans AMBULATORY WOUND CARE* Plan Start Date:10/17/2018 Plan Provider:Olivia Kennedy, RUDI-THREAD PULLING MACHINE ATTENDANT Linked Problems Non-healing surgical wound, subsequent encounter Treatment Medications No medications scheduled. Past Treatment and Therapy Plans No past plan information found. Lifetime Dose Tracking * ChemicalLifetime DoseAutomatic EntryManual EntryFluoroscopy2.2 mGy2.2 mGy0 mGy
--- OUTSIDE RECORDS SUMMARY | 2025-10-03 09:32 | XMS_ITS | Encounter Summary ---
Author Organization [facility] Address [address] [place] [address] Care Team Providers Care Mica Laminating Machine Feeder Name Role Phone Alma Street DO Unavailable [phone] Nick Ledbetter MD Primary Care Provider [phone] Encounter Details DateTypeDepartmentCare Team (Latest Contact Info)Qkenddmqkrr16/14/2025amboo flowsheet [facility] [address] [place] [address] Chris Nielsen PA [address] [place] [address] Social History Tobacco UseTypesPacks/DayYears UsedDateSmoking Tobacco: NeverSmokeless Tobacco: NeverAlcohol UseStandard Drinks/WeekCommentsYes0 (1 standard drink = 0.6 oz pure alcohol)caffeine intake: 1-2 cups per day.CommentsUnknownSex and Gender InformationValueDate RecordedSex Assigned at BirthNot on fileLegal SexFemale 01/20/2023 6:52 PM EDTGender IdentityNot on fileSexual OrientationNot on file documented as of this encounter Plan of Treatment DateTypeDepartmentCare Team (Latest Contact Info)Sdctcpsvisb76/15/2025 2:30 PM ESTOffice Visit [facility] [address] [place] [address] Meghann Hinojosa DPM [address] [place] [address] 11/05/2025 4:30 PM ESTProcedure Visit [facility] [address] [place] [phone] Meghann Hinojosa DPM [address] [place] [address] 09/19/2027 11:30 AM ESTOffice Visit [facility] [address] [place] [address] Chris Nielsen, PA [address] [place] [address] documented as of this encounter Visit Diagnoses Not on filedocumented in this encounter Care Teams Team MemberRelationshipSpecialtyStart DateEnd Date Nick Ledbetter MD [address] [facility] [place] [address] PCP - GeneralFamily Medicine04/13/[address] DO [address] [place] [address] Referring PhysicianNeurology2documented as of this encounter
--- OUTSIDE RECORDS SUMMARY | 2025-10-03 09:32 | XMS_ITS | Clinical Summary ---
Author Organization [employer] [facility] tem Address [facility]-[id number] [address] [place] [address] Care Team Providers Care Coupler Name Role Phone Nick Ledbetter MD Primary Care Provider [phone] Allergies Active AllergyReactionsCriticalityNoted DateCommentsNo Known Drug Allergies 09/01/2016 Medications MedicationSigDispense QuantityRefillsLast FilledStart DateEnd DateStatus amitriptyline (ELAVIL) 10 mg tablet Take 1 tablet (10 mg total) by mouth nightly.Active lisinopril (PRINIVIL,ZESTRIL) 5 mg tablet Take 1 tablet (5 mg total) by mouth in the morning.Active multivitamin capsule Take 1 capsule by mouth in the morning.Active lancets (accu-chek soft touch) misc Indications:Type 2 diabetes mellitus without complication, without long-term current use of insulin ([facility])Monitor blood sugar daily 100 each Active albuterol (PROVENTIL HFA;VENTOLIN HFA) 90 mcg/actuation inhaler Indications:Upper respiratory tract infection, unspecified type,Cough in adult Inhale 2 puffs every 4 (four) hours as needed for wheezing. 18 g Active verapamil HCl ER (VERELAN PM) 200 mg capsule, [address] Indications:Essential hypertensionTake 2 capsules (400 mg total) by mouth daily. 180 capsule 04/18/2019Active blood sugar diagnostic (FREESTYLE LITE STRIPS) strip Indications:Type 2 diabetes mellitus without complication, without long-term current use of insulin ([facility])TEST ONCE DAILY 200 strip 05/23/2019Active doxepin (SINEquan) 10 mg capsule Take 1 capsule (10 mg total) by mouth nightly.Active metFORMIN XR (GLUCOPHAGE XR) 500 mg 24 hr tablet Indications:Type 2 diabetes mellitus without complication, without long-term current use of insulin ([facility])TAKE 1 TABLET(500 MG) BY MOUTH DAILY WITH DINNER 90 tablet 4Active amLODIPine (NORVASC) 10 mg tablet Take 1 tablet (10 mg total) by mouth.5Active rimegepant (NURTEC ODT) 75 mg tablet,disintegrating DISSOLVE 1 TABLET ON THE TONGUE DAILY EVERY OTHER DAY NEEDED FOR MIGRAINE 4Active simvastatin (ZOCOR) 20 mg tablet Take 1 tablet (20 mg total) by mouth.Active metoprolol succinate XL (TOPROL XL) 50 mg 24 hr tablet Take 1 tablet (50 mg total) by mouth in the morning.506Active levothyroxine (SYNTHROID, LEVOTHROID) 150 MCG tablet Indications:Postablative hypothyroidismTAKE 1 TABLET BY MOUTH EVERY MORNING EXCEPT TAKE 2 TABLETS ON SATURDAYS AND SUNDAYS. 112 tablet 5Active levothyroxine (SYNTHROID, LEVOTHROID) 150 MCG tablet Indications:Postablative hypothyroidismTAKE 1 TABLET BY MOUTH EVERY MORNING EXCEPT TAKE 2 TABLETS ON SATURDAYS AND SUNDAYS. 112 tablet Discontinued(Reorder) Active Problems ProblemNoted DateDiagnosed DateNonhealing surgical wound11/16/2018Respiratory failure, unspecified with fhynrgu2810/21/20183037Fujnunqcrpk03/01/2018Complex endometrial hyperplasia with febkzc9610/07/2018Well woman exam (no gynecological exam)10/04/20180191Daopwbdgckfr11/14/2017DM type 2 (diabetes mellitus, type 2) 05/21/2017Breast qfntuf0505/21/2017 Overview (05/21/2017): Right breast 2011 History of breast akhtmi4906/27/2014DCIS (ductal carcinoma in situ)08/11/2013 Encounters DateTypeDepartmentCare QslsHojzbeqfywe31/11/2025Refill [facility] Department of [facility] [address] [address] Leilani Purcell LPN Postablative hypothyroidismfrom Last 3 Months Immunizations ImmunizationAdministration DatesNext DueInfluenza, Injectable, quadrivalent (PF) 10/21/2018(Deferred: Patient Refused) Family History Medical HistoryRelationNameCommentsCancerMaternal GrandmotherDiabetesMaternal GrandmotherBreast cancerMotherCancerMotherBreast cancerPaternal Grandmother RelationNameStatusCommentsMaternal GrandmotherMotherPaternal Grandmother Social History Tobacco UseTypesPacks/DayYears UsedDateSmoking Tobacco: NeverSmokeless Tobacco: Never Tobacco Cessation:Counseling Given: Not Answered Alcohol UseStandard Drinks/WeekCommentsYes0 (1 standard drink = 0.6 oz pure alcohol)RarelyAUDIT-CAnswerDate RecordedFrequency of Alcohol ConsumptionNever 10/07/2018Average Number of DrinksNot on file10/07/2018Frequency of Binge DrinkingNot on file10/07/2018PHQ-2AnswerDate RecordedPHQ-2 Kwtsm94412/28/2017 ChildcareAnswerDate KwmjmjaxKgwjxogibQthkwce12/11/2019EmploymentAnswerDate CdxhgrieDrdyraregqUctaqvw88/11/2019Hunger ScreeningAnswerDate RecordedWithin the past 12 months we worried whether our food would run out before we got money to buy more.Never True08/25/2024Within the past 12 months the food we bought just didn't last and we didn't have money to get more.Never True4Purpose - LifeAnswerDate RecordedPurpose and direction in zuivTzpmhyb05/11/2021 CommentsNoSex and Gender InformationValueDate RecordedSex Assigned at BirthNot on fileLegal NhgGweust50/06/2015 11:39 AM EDTGender IdentityNot on fileSexual OrientationNot on file Last Filed Vital Signs Vital SignReadingTime TakenCommentsBlood Pyyffgpb661/8302 1:47 PM EST Ttgbi659112/29/2024 1:47 PM ZFACryyrjonwju05.9 ??C (98.4 ??F)02/13/2019 10:18 AM EDTRespiratory Oeub357602/13/2019 10:18 AM EDTOxygen Qfdjehqmdo54%02/13/2019 10:18 AM EDTInhaled Oxygen Concentration--Pobgfy644.3 kg (241 lb)12/29/2024 1:47 PM OTDGkmldg934.5 cm (5' 2.01 )02/13/2019 10:18 AM EDTBody Mass Index44.07 02/13/2019 10:18 AM EDT Plan of Treatment DateTypeDepartmentCare Team (Latest Contact Info)Wyqubvxktyq40/23/2026 2:45 PM ESTOffice Visit [facility] Department of [facility] [address] [address] Ann Marie Yan, TRUCKING CONTRACTOR-RESEARCH MANAGER [address] [address] Health MaintenanceDue DateLast DoneCommentsDiabetic Ophthalmology Exam1967 Depression Dlwaqpmim93/14/1979DTaP,Tdap and Td Vaccines (1 - Tdap)1986 Zoster (Shingles) Vaccine (1 of 2)03/21/19861173Ireqgoimt57, 10/25/2017COVID-19 Vaccine ( season)5011/21/2021, 02/27/2021, 02/06/2021Influenza Oqrnrwf5607/09/2025dult BMI Xaaakygqa92 Diabetic Foot Exam, 08/25/2024, 09/03/2023Statin Use: Lhawidaq48/Tobacco Mkoqfutlw01/Pap Smear Grnkykigudrm08/28/2018, 05/05/2018 Goals GoalPatient Goal TypeAssociated ProblemsRecent ProgressPatient-Stated?Author Discharge Home Jenny Estrella RN Note: Evaluation of progress towards goal:Discharge home self care w/spouse/family support Medical Devices Not on file Procedures Procedure NamePriorityDate/TimeAssociated DiagnosisCommentsMAMM DIAGNOSTIC BILATERAL W LVDZevmvzx63/08/2019 11:08 AM EST HX: breast cancer PAP MFCDPJbsxkmb13/28/2018 9:00 AM EDT from Last 3 Months or Most Recently Relevant to Health Maintenance Results * Mammography diagnostic bilateral with CAD (11/15/2018 11:08 AM EST)Anatomical RegionLateralityModalityBreastBilateralMammographySpecimen (Source)Anatomical Location / LateralityCollection Method / VolumeCollection TimeReceived Time 11/15/2018 11:09 AM EST Narrative 11/15/2018 11:15 AM EST Procedure: Diagnostic mammogram History: Right breast cancer Technique: Digital mammographic images of both breasts were obtained in the CC and MLO projections.. ??Computer-aided detection was utilized. ??Tomosynthesis was also performed bilaterally. Comparison: ??10/25/2017 Findings: Postoperative and post radiation changes are again seen in the upper outer aspect of the right breast, unchanged the previous examination. ??Benign calcic ages are again seen bilaterally. ??There is no evidence of dominant mass lesion, clustered like calcification, or skin thickening in either breast to suggest the presence of malignancy. Breast Density: There are scattered areas of fibroglandular density. Impression: 1. ??Stable postoperative changes on the right. 2. ??Both breasts negative for evidence of malignancy. ACR Category: ??BIRADS 2 - Benign. Finalized by Srinivasan Baugh MD on 11/15/2018 11:15 AM b 2 DIAG RAYNE 1 Y Procedure Note Srinivasan Baugh MD - 11/15/2018 Procedure: Diagnostic mammogram History: Right breast cancer Technique: Digital mammographic images of both breasts were obtained inthe CC and MLO projections.. Computer-aided detection was utilized.Tomosynthesis was also performed bilaterally. Comparison: 10/25/2017 Findings: Postoperative and post radiation changes are again seen in theupper outer aspect of the right breast, unchanged the previousexamination. Benign calcic ages are again seen bilaterally. There is noevidence of dominant mass lesion, clustered like calcification, or skinthickening in either breast to suggest the presence of malignancy. Breast Density: There are scattered areas of fibroglandular density. Impression: 1. Stable postoperative changes on the right. 2. Both breasts negative for evidence of malignancy. ACR Category: BIRADS 2 - Benign. Finalized by Srinivasan Baugh MD on 11/15/2018 11:15 AM b 2 DIAG RAYNE 1 Y Authorizing ProviderResult TypeResult StatusKhjill Ornelas MDIMAdam MAMMOGRAPHY ORDERABLESFinal Result * Pap Smear (05/05/2018 9:00 AM EDT)Specimen (Source)Anatomical Location / LateralityCollection Method / VolumeCollection TimeReceived TimeCervical TP 05/05/2018 9:00 AM EDT05/05/2018 9:01 AM EDT Narrative COPATH - 05/16/2018 12:53 PM EDT [facility] ? [address] [place] [address] ? [place] [address] ? Gynecologic Cytology Consultation ? Patient Name: PATY PELAEZ : 1965 (Age: 53) Gender: F Taken: 05/05/2018 Reported: 05/16/2018 Physician(s): RAYNA Shukla ([phone]) Copy To: ?? Med. Rec. #: [id number] Acct: # [id number] Final Cytologic Interpretation Cervical (with or without endocervical) ThinPrep: Satisfactory for evaluation. A transformation zone component is present. NEGATIVE FOR INTRAEPITHELIAL LESION OR MALIGNANCY. Comment: This specimen has been sent for HPV testing. The results are in a separate report. cjg/05/16/2018 Interpretation performed at [facility], [address] [place] [address] [place] [address], License number: [id number]. Electronically Signed Out By ?LEV Barksdale(ASCP) Date of Last Menstrual Period: ? (None Given) Other Clinical Conditions: Screening/Routine z01.419 Supervisor Mill exam wo/abn findings LMP: Unknown due to chemo medication Menopausal Bleeding, abnormal: Clinical history: ??Cancer history with chemotherapy (breast cancer) Source of Specimen Cervical (with or without endocervical) ThinPrep ? Thin Prep Pap (SUSTAINABLE AGRICULTURE SPECIALIST) Fee Code(s): ?? G0145 The Pap test is a screening test with an inherent, but low, probability of error. The Pap test is primarily effective for the diagnosis and prevention of squamous cell carcinoma. Regular screening iscritical for prevention. ThinPrep liquid-based slides, which meet the Traveling Secretary criteria for automated screening, have been screened by the ThinPrep Imaging System (as of 07/25/07) along with an additional manual rescreening by a zoology technical officer and, if indicated, by a pathologist.ALEKSANDRA Shukla 05/11/2018 Authorizing ProviderResult TypeResult StatusNot In System Ref Prov PATHOLOGY/CYTOLOGY ORDERABLESFinal ResultPerforming OrganizationAddress City/State/ZIP CodePhone Number COPATH from Last 3 Months or Most Recently Relevant to Health Maintenance Insurance Advance Directives * Full Code (Latest Code Status on File) Date ActivatedDate NxqjhnowcfpDjrdalpr32/14/2018 5:41 AM10/26/2018 5:32 PM * Full Code Date ActivatedDate ZvkqmiycgmgIgjtpabz32/2/2018 5:39 PM10/12/2018 6:49 PM Care Teams Team MemberRelationshipSpecialtyStart DateEnd Date Nick Ledbetter MD PCP - GeneralFamily Xfumuzqe12/14/22
--- OUTSIDE RECORDS SUMMARY | 2025-10-03 09:32 | XMS_ITS | Encounter Summary ---
Author Organization [facility] Address [address] [place] [address] Care Team Providers Care Coil Cutter Name Role Phone Alma Street DO Unavailable [phone] Nick Ledbetter MD Primary Care Provider [phone] Encounter Details DateTypeDepartmentCare Team (Latest Contact Info)Smbwqdqcllj90/18/2025Travel Social History Tobacco UseTypesPacks/DayYears UsedDateSmoking Tobacco: NeverSmokeless Tobacco: NeverAlcohol UseStandard Drinks/WeekCommentsYes0 (1 standard drink = 0.6 oz pure alcohol)caffeine intake: 1-2 cups per day.CommentsUnknownSex and Gender InformationValueDate RecordedSex Assigned at BirthNot on fileLegal SexFemale 01/20/2023 6:52 PM EDTGender IdentityNot on fileSexual OrientationNot on file documented as of this encounter Plan of Treatment DateTypeDepartmentCare Team (Latest Contact Info)Mhgpuwdiypk57/15/2025 2:30 PM ESTOffice Visit [facility] [place] [facility] [address] [place] [address] Meghann Hinojosa DPM [address] [place] [address] 11/05/2025 4:30 PM ESTProcedure Visit [facility] [place] [facility] [address] [place] [address] Meghann Hinojosa DPM [address] [facility] [address] [place] [address] 09/19/2027 11:30 AM ESTOffice Visit [facility] [address] [address] Chris Nielsen PA [address] [place] [address] documented as of this encounter Visit Diagnoses Not on filedocumented in this encounter Care Teams Team MemberRelationshipSpecialtyStart DateEnd Date Nick Ledbetter MD [address] [facility] [place] [address] PCP - GeneralFamily Medicine04/13/[address] DO [address] [place] [address] Referring PhysicianNeurology2/documented as of this encounter
[2025-10-03 10:08] LABS: Hematocrit 46.0 % (36.0-48.0); Hemoglobin 15.2 g/dL (12.0-16.0); Immature Granulocytes Abs Auto 0.01 10^3/uL (0.00-0.03); Immature Granulocytes Pct Auto 0.1 % (0.0-0.5); Lymphocytes Absolute Auto 2.0 10^3/uL (1.2-3.8); Mean Corpuscular HGB Conc 33.0 g/dL (29.9-35.2); Mean Corpuscular Hemoglobin 29.1 pg (26.7-34.0); Mean Corpuscular Volume 88.1 fL (81.0-99.0); Platelet Count 190 10^3/uL (150-450); Red Blood Count 5.22 10^6/uL (4.20-5.40); White Blood Count 7.5 10^3/uL (4.0-11.0)
[2025-10-03 10:49] LABS: Alanine Aminotransferase 25 U/L (14-59); Albumin Globulin Ratio 1.0; Albumin Level 3.5 g/dL (3.4-5.0); Alkaline Phosphatase 88 U/L (46-116); Anion Gap 11.2; Aspartate Amino Transferase 23 U/L (15-37); Blood Urea Nitrogen 13.0 mg/dL (7.0-18.0); Calcium 8.9 mg/dL (8.5-10.1); Carbon Dioxide 28.8 mmol/L (21.0-32.0); Chloride 105 mmol/L (98-107); Cholesterol 186 mg/dL (<=200); Estimated GFR (African America >60 (>=60 mL/min/1.73m^2); Estimated GFR (Non-African Ame >60 (>=60 mL/min/1.73m^2); Free T3 2.17 pg/mL (2.18-3.98); Globulin 3.6 g/dL; Glucose 93 mg/dL (74-106); HDL Cholesterol 83 mg/dL (40-60); Potassium 4.0 mmol/L (3.5-5.1); Sodium 141 mmol/L (136-145); Thyroid Stimulating Hormone 1.713 uIU/mL (0.358-3.740); Total Protein 7.1 g/dL (6.4-8.2); Triglycerides 54 mg/dL (<=150); VLDL CHOLESTEROL 10.8 mg/dL
[2025-10-03 11:06] LABS: Iron 122.0 ug/dL (50.0-170.0)
== END 2025-10-03 09:28 | disposition home or self-care (01) ==
LOC: LAB 09:27
PROVIDERS: PCP Family Medicine; Visit Provider Family Medicine
DX: Z00.00 Encounter for general adult medical examination without abnormal findings (principal)
CPT/HCPCS: 36415; 80053; 80061; 82306; 83036; 83525; 83540; 84436; 84443; 84481; 85025

== ENCOUNTER 2025-10-08 12:24 | Outpatient (REF) | payer OTHER, SELFPAY ==
--- OUTSIDE RECORDS SUMMARY | 2025-09-25 14:00 | XMS_ITS | Encounter Summary ---
Author Organization [facility] Address [address] [place] [address] Care Team Providers Care Studio Couch Frame Builder Name Role Phone Alma Street DO Unavailable Nick Ledbetter MD Primary Care Provider [phone] Encounter Details DateTypeDepartmentCare Team (Latest Contact Info)Bgctrldiqrz39/18/2025 2:00 PM ESTOffice Visit [facility] [address] [place] [address] Meghann Hinojosa DPM [address] [place] [address] Surgery follow-up examination (Primary Dx); Tailor's bunion of right foot; Right foot pain Social History Tobacco UseTypesPacks/DayYears UsedDateSmoking Tobacco: NeverSmokeless Tobacco: NeverAlcohol UseStandard Drinks/WeekCommentsYes0 (1 standard drink = 0.6 oz pure alcohol)caffeine intake: 1-2 cups per day.CommentsUnknownSex and Gender InformationValueDate RecordedSex Assigned at BirthNot on fileLegal SexFemale 01/20/2023 6:52 PM EDTGender IdentityNot on fileSexual OrientationNot on file documented as of this encounter Progress Notes * Meghann Hinojosa DPM - 09/25/2025 2:00 PM EST Images from the original note were not included. HPI: Paty Pelaez presents today for post-op appointment of correction tailor's bunion right, fluoroscopically guided injection bilateral midfoot. Surgery was performed on 09/14/2025 at [facility]. Patient complains of pain 10. Current symptoms are sharp. Majority of her symptoms are along the surgical sites. Patient has been icing and elevating as instructed. Examination: General Examination: GENERAL EXAMINATION: awake, aware of surroundings, in no acute distress. Foot exam: 09/25/25 Vascular: DORSALIS PEDIS PULSE: 2/4, bilaterally. POSTERIOR TIBIAL PULSE: 1/4, right 0/4 left. TEMPERATURE GRADIENT: warm to cool. EDEMA: moderate to the right foot CAPILLARY FILLING TIME(sec): capillary fill intact bilateral digits less than 3 secs. Neurologic: NEUROLOGIC: light touch is intact to the plantar foot. Dermatologic: SKIN FINDINGS: incision site to the 5th ray right with sutures intact. There is ecchymosis to the right foot along the toes. Good position noted to the 5th ray. HYPERKERATOSIS: distal 2nd digit left NAIL PATHOLOGY: [...] digit bilateral. PAIN ELICITED WITH PALPATION OF: No current pain to the bilateral foot along the tarsometatarsal joint. Pain along the surgical sites right foot. PAIN ELICITED WITH ROM: tarsometatarsal joint bilateral ankle. MUSCLE STRENGTH5/5 for all pedal groups tested. Orthotics fit well with no evidence of rubbing and good support noted to the arch with adequate width and length. Assessments: Surgery follow-up examination Osteoarthritis bilateral midfoot Bilateral foot pain Cheikh's bunion right foot Right foot pain Plan: Surgery Follow-up Examination: Sutures were removed from the incision site. Advised that she can begin to get the area wet, but toavoid soaking for the next 2-3 weeks until the skin is completely healed. She can start light touchmassage to help prevent nerve pain or symptoms along the incision site. Patient advised to return to her normal shoe gear as tolerated. RTC: 3-4 weeks. documented in this encounter Plan of Treatment DateTypeDepartmentCare Team (Latest Contact Info)Hkllpbmlyht74/15/2025 2:30 PM ESTOffice Visit [facility] [address] [place] [address] Meghann Hinojosa DPM [address] [place] [address] 11/05/2025 4:30 PM ESTProcedure Visit [facility] [place] [facility] [address] [place] [address] Meghann Hinojosa DPM [address] [place] [address] 09/19/2027 11:30 AM ESTOffice Visit [facility] [address] [facility] [place] [address] Chris Nielsen PA [address] [place] [address] documented as of this encounter Visit Diagnoses Diagnosis Surgery follow-up examination- Primary Follow-up examination, following unspecified surgery Tailor's bunion of right foot Right foot pain Pain in soft tissues of limb documented in this encounter Care Teams Team MemberRelationshipSpecialtyStart DateEnd Date Nick Ledbetter MD [address] [facility] [place] [address] PCP - GeneralFamily Medicine04/13/[address] DO [address] [place] [address] Referring PhysicianNeurology2/documented as of this encounter
--- OUTSIDE RECORDS SUMMARY | 2025-10-08 12:28 | XMS_ITS | Encounter Summary ---
Author Organization [facility] Address [address] [place] [address] Care Team Providers Care Shank Turner Name Role Phone Alma Street DO Unavailable [phone] Nick Ledbetter MD Primary Care Provider [phone] Encounter Details DateTypeDepartmentCare Team (Latest Contact Info)Olmltdrpkvl02/18/2025Travel Social History Tobacco UseTypesPacks/DayYears UsedDateSmoking Tobacco: NeverSmokeless Tobacco: NeverAlcohol UseStandard Drinks/WeekCommentsYes0 (1 standard drink = 0.6 oz pure alcohol)caffeine intake: 1-2 cups per day.CommentsUnknownSex and Gender InformationValueDate RecordedSex Assigned at BirthNot on fileLegal SexFemale 01/20/2023 6:52 PM EDTGender IdentityNot on fileSexual OrientationNot on file documented as of this encounter Plan of Treatment DateTypeDepartmentCare Team (Latest Contact Info)Xxvmcrxdjbt08/15/2025 2:30 PM ESTOffice Visit [facility] [place] [facility] [address] [place] [address] Meghann Hinojosa DPM [address] [place] [address] 11/05/2025 4:30 PM ESTProcedure Visit [facility] [address] [place] [address] Meghann Hinojosa DPM [address] [facility] [address] [place] [address] 09/19/2027 11:30 AM ESTOffice Visit [facility] [address] [place] [address] Chris Nielsen PA [address] [place] [address] documented as of this encounter Visit Diagnoses Not on filedocumented in this encounter Care Teams Team MemberRelationshipSpecialtyStart DateEnd Date Nikc Ledbetter MD [address] [facility] [place] [address] PCP - GeneralFamily Medicine04/13/[address] DO [address] [place] [address] Referring PhysicianNeurology2/documented as of this encounter
--- OUTSIDE RECORDS SUMMARY | 2025-10-08 12:28 | XMS_ITS | Clinical Summary ---
Author Organization [facility] Address [address] [place] [address] Care Team Providers Care Tax Lawyer Name Role Phone Nick Ledbetter MD Primary Care Provider [phone] Allergies No known active allergies Medications MedicationSigDispense [...] mg EC tablet Indications:Coronary artery disease involving [place] coronary artery of [place] heart with other form of angina pectorisTake 1 tablet (81 mg) by mouth in the morning. 30 tablet 11002/05/565296/ctive metoprolol succinate XL (Toprol-XL) 100 mg 24 hr tablet Indications:Essential hypertensionTake 1 tablet (100 mg) by mouth in the morning. Do not crush or chew. 30 tablet 111/969263/ctive Active Problems ProblemNoted DateDiagnosed DateCoronary artery disease involving [place] coronary artery of [place] heart02/17/2025typical chest pain12/17/2024bnormal stress test12/17/20243462Vqxoxihajmwwgm14/09/2025Morbid cppmgjo4012/17/2024ongenital deformity of toe04/30/2023orns and ksvjvinwgas69/23/5814Yttihgtsvutdl80/23/2023 Pain in both feet04/30/2023osterior tibial tendinitis of right lower extremity 04/30/2023Venous isypaxpogihsk57/23/2023Nonhealing surgical wound11/16/2018 Xxdjuftlmxn25/01/2018Complex endometrial hyperplasia with dimxst4210/07/2018Well woman exam (no gynecological exam)10/04/2018Breast qxtrks7805/21/2017 Overview (12/15/2024): Right breast 2011 Diabetes mellitus type II, non insulin ooasexxwh23/14/2017Essential hypertension 05/21/2017History of breast thpazl7006/27/2014DCIS (ductal carcinoma in situ) 08/11/2013Irregular zpqjge9304/20/2013Subjective fyrwwwyo27/31/2004 Resolved Problems ProblemNoted DateDiagnosed DateResolved DateRespiratory failure, unspecified with mufbglr83 Encounters DateTypeDepartmentCare YxjtOpuwldgfdsk15/10/2025 3:00 PM EDTOffice Visit [address] [address] Karen Cruz MD Coronary artery disease involving [place] coronary artery of [place] heart without angina pectoris (Primary Dx); Essential hypertension; Pure hypercholesterolemia; Diabetes mellitus type II, non insulin dependent (CMS/HCC); Morbid obesity (CMS/HCC); Acquired erqenzybfjeiey26/10/2025Orders Only [address] [address] Yuliana Russo MA Hyperlipidemia, unspecified hyperlipidemia type (Primary Dx)08/17/2025Orders Only [address] [address] Karen Flores MD from Last 3 Months Family History Medical HistoryRelationNameCommentsHeart diseaseFatherBreast cancerMother RelationNameStatusCommentsFatherAliveMotherDeceased Social History Tobacco UseTypesPacks/DayYears UsedDateSmoking Tobacco: NeverSmokeless Tobacco: Never Tobacco Cessation:Counseling Given: Not Answered Alcohol UseStandard Drinks/WeekCommentsNot Currently0 (1 standard drink = 0.6 oz pure alcohol)CommentsNoSex and Gender InformationValueDate RecordedSex Assigned at SwwtkBzlmik56/20/2025 6:41 AM EDTLegal EidIxutiz02/29/2022 10:18 PM EDTGender HnsozgbvMernsr42/20/2025 6:41 AM EDTSexual OrientationChoose not to gmxelpsh39/20/2025 6:41 AM EDT Last Filed Vital Signs Vital SignReadingTime TakenCommentsBlood Bkfwzbjz639/8510 2:53 PM EDT Ntaaw722908/17/2025 2:53 PM EDTTemperature--Respiratory Cbmh169601/25/2025 8:40 AM EDTOxygen Hyhykokrve98%08/17/2025 2:53 PM EDTInhaled Oxygen Concentration-- Ccpsiv347 kg (238 lb)08/17/2025 2:53 PM NCHQntpqq165.5 cm (5' 2 )08/17/2025 2:53 PM EDTBody Mass Index43.5308/17/2025 2:53 PM EDT Plan of Treatment Health MaintenanceDue DateLast DoneCommentsCT Uqpkivqapryr1967Colonoscopy 1967Colorectal Cancer Orvadmkio1967Diabetes: Hemoglobin A1C 1967FIT-DNA1967FIT1967FOBT1967 8975Mxkqrjwocizpu1967 Diabetes: Retinopathy Enfidqdmx24/14/1977Depression Ubujfodio06/14/1979Hepatitis B Vaccines (1 of 3 - 19+ 3-dose series)1986Pneumococcal Vaccine: Pediatrics (0 to 5 Years) and At-Risk Patients (6 to 64 Years) (1 of 2 - PCV) 1986Pap Smear1988Adult Obqehdo9203/21/1989Cervical Cancer Screening 1997HPV/Jctxti2803/21/1997Zoster Vaccines (1 of 2)2017COVID-19 Vaccine ( season)5011/21/2021, 02/27/2021, 02/06/2021Influenza Vaccine (#1)2025Diabetes: Urine Protein Efrrpgygh81/18/923879 YckikvpxgRrzjyislmlvu57/08/2019HIB VaccinesAged OutNo longer eligible based on patient's [...] MemberRelationshipSpecialtyStart DateEnd Date Nick Ledbetter MD [address] [facility] [address] [address] [facility] - General12/15/24
--- OUTSIDE RECORDS SUMMARY | 2025-10-08 12:28 | XMS_ITS | Clinical Summary ---
Author Organization [facility] Address [address] [place] [address] Care Team Providers Care Panel Cutter Name Role Phone Alma Street DO Unavailable Nick Ledbetter MD Primary Care Provider [phone] Allergies No known active allergies Medications MedicationSigDispense [...] Expired Active Problems ProblemNoted DateDiagnosed DateCorns and eqrtgqookjk44/23/2023ain in both feet 04/30/20239122Ujtcffpfamzrl62/23/2023Venous otdvbusxjjbvx44/23/2023osterior tibial tendinitis of right lower sagdgsmfw08/23/2023ongenital deformity of toe 04/30/2023 Encounters DateTypeDepartmentCare AgujRdxkuzmfdap18/18/2025 2:00 PM ESTOffice Visit [facility] [address] [place] [address] Meghann Hinojosa DPM Surgery follow-up examination (Primary Dx); Tailor's bunion of right foot; Right foot pain09/25/20255511Ohtpjb93/17/2493Qevbik93/14/2025 11:30 AM ESTOffice Visit [facility] [address] [place] [address] Chris Nielsen PA Acute pain of left knee (Primary Dx); History of left knee vlwfbdoesbm66/14/2025 11:15 AM ESTAncillary Procedure [facility] [address] [place] [phone] 09/21/2025amboo flowsheet [facility] [address] [place] [phone] Chris Nielsen PA 09/21/20253615Djyuxl73/10/2025 4:15 PM ESTOffice Visit [facility] [address] [place] [address] Meghann Hinojosa DPM Surgery follow-up examination (Primary Dx)09/17/2025amboo flowsheet [facility] [address] [place] [address] Meghann Hinojosa DPM 09/17/20252914Aqyugv72/08/7664Ijcjdt78/05/2025Telephone [facility] [address] [place] [address] Dixie Estrada MA Kwdxthbchsr89/28/2025 4:45 PM EDTOffice Visit [facility] [address] [place] [address] Meghann Hinojosa, DPM Tailor's bunion of right foot (Primary Dx); Right foot pain09/04/2025amboo flowsheet [facility] [address] [place] [address] Meghann Hinojosa DPM 09/04/20257513Kcfols25/25/4734Txmdfk41/21/2025bstract [facility] [address] [place] [address] Meghann Hinojosa DPM 08/15/2025Telephone [facility] [place] [facility] [address] [place] [address] Chris Nielsen, [place] Med Ljozsu7307/30/2025 4:00 PM EDTProcedure Visit [facility] [place] [facility] [address] [place] [address] Meghann Hinojosa, DPM Corns and callosities (Primary Dx); Pain in both feet; Onychomycosis; Type 2 diabetes mellitus without complication, without long-term current use of insulin ([facility])07/30/2025amboo flowsheet [facility] [place] [address] [place] [address] Meghann Hinojosa DPM 07/30/20253259Dnvseu37/16/4810Gmijnu35Orders Only [facility] [address] [place] [phone] Dixie Estrada MA Pre-op testing (Primary Dx)from Last 3 Months Family History * Patient [...] Last Filed Vital Signs Vital SignReadingTime TakenCommentsBlood Onadncnl481/9808 4:34 PM EDT Irzdc686007/04/2024 4:34 PM EDTTemperature--Respiratory Rate--Oxygen Rjlvbmnxob07% 07/04/2024 4:34 PM EDTInhaled Oxygen Concentration--Kmggyn837 kg (230 lb) 07/05/2023 3:19 PM YDMSwkumt786.5 cm (5' 2 )07/05/2023 3:19 PM EDTBody Mass Index42.0707/05/2023 3:19 PM EDT Plan of Treatment DateTypeDepartmentCare Team (Latest Contact Info)Dpzbvgpmuim25/15/2025 2:30 PM ESTOffice Visit [facility] [place] [facility] [address] [place] [phone] Meghann Hinojosa DPM [address] [place] [address] 11/05/2025 4:30 PM ESTProcedure Visit [facility] [address] [place] [phone] Meghann Hinojosa, DPM [address] [place] [address] 09/19/2027 11:30 AM ESTOffice Visit [facility] [address] [facility] [place] [place] [address] Chris Nielsen, PA [address] [place] [address] Health MaintenanceDue DateLast DoneCommentsCT Hbhiqcbgbjjm1967Colonoscopy 1967Colorectal Cancer Icndrqrpr1967FIT-DNA1967FIT1967 FOBT1967 2987Ijoocpsvmrews1967Pap Smear03/21/19882420Ucprfshye76/08/2020 11/15/2018, 10/25/2017, 10/28/2016, Additional history existsCervical Cancer Bzrmhiayu97/28/2023HPV/Ymhnkg89COVID-19 Vaccine ( season)501/, 02/27/2021, 02/06/2021Influenza Vaccine (#1) 2025Pneumococcal Vaccine: Pediatrics (0 to 5 Years) and At-Risk Patients (6 to 64 Years)Aged OutNo longer eligible based on patient's age to complete this topic Procedures Procedure NamePriorityDate/TimeAssociated DiagnosisCommentsXR KNEE 1-2 VIEWS QHVNZylqobb94/14/2025 11:13 AM EST Acute pain of left knee XR FOOT 3+ VIEWS LCZYYKogsxyl44/10/2025 4:33 PM EST Surgery follow-up examination from [...] knee arthroplasty Authorizing ProviderResult TypeResult StatusMataz Nielsen PAIMG XR PROCEDURES Final Result * XR foot [...] lateral 5th metatarsal head Authorizing ProviderResult TypeResult StatusCaalfonso Hinojosa DPMIMG XR PROCEDURESFinal Result from Last 3 Months Insurance * Guarantor: Paty Pelaez TypeRelation to PatientDate of BirthPhone Billing AddressPersonal/HdubxcFhpb1965 [facility] [place] [address] Care Teams Team MemberRelationshipSpecialtyStart DateEnd Nick Ledbetter MD [address] [place] [address] [facility]04/13/[address] DO [address] [place] [address] Referring PhysicianNeurology2
--- OUTSIDE RECORDS SUMMARY | 2025-10-08 12:28 | XMS_ITS | Encounter Summary ---
Author Organization [facility] Address [address] [place] [place] [address] Care Team Providers Care Cooker Chip Name Role Phone Alma Street DO Unavailable [phone] Nick Ledbetter MD Primary Care Provider [phone] Encounter Details DateTypeDepartmentCare Team (Latest Contact Info)Rgytwiflcng16/17/2025Travel Social History Tobacco UseTypesPacks/DayYears UsedDateSmoking Tobacco: NeverSmokeless Tobacco: NeverAlcohol UseStandard Drinks/WeekCommentsYes0 (1 standard drink = 0.6 oz pure alcohol)caffeine intake: 1-2 cups per day.CommentsUnknownSex and Gender InformationValueDate RecordedSex Assigned at BirthNot on fileLegal SexFemale 01/20/2023 6:52 PM EDTGender IdentityNot on fileSexual OrientationNot on file documented as of this encounter Plan of Treatment DateTypeDepartmentCare Team (Latest Contact Info)Nwyiizgxzip50/15/2025 2:30 PM ESTOffice Visit [facility] [place] [facility] [address] [place] [address] Meghann Hinojosa DPM [address] [place] [address] 11/05/2025 4:30 PM ESTProcedure Visit [facility] [address] [place] [phone] Meghann Hinojosa DPM [address] [facility] [address] [place] [address] 09/19/2027 11:30 AM ESTOffice Visit [facility] [address] [place] [address] Chris Nielsen PA [address] [place] [address] documented as of this encounter Visit Diagnoses Not on filedocumented in this encounter Care Teams Team MemberRelationshipSpecialtyStart DateEnd Date Nick Ledbetter MD [address] [facility] [facility] [place] [address] PCP - GeneralFamily Medicine04/13/[address] DO [address] [place] [address] Referring PhysicianNeurology2/documented as of this encounter
--- OUTSIDE RECORDS SUMMARY | 2025-10-08 12:49 | XMS_ITS | CCD ---
Author Organization [facility] CliniSyms Care Team Providers Care [employer] Installer Name Role Phone PHYSICIAN, DEFAULT Unavailable [...] Unavailable Chacha Evans MD Primary Care Provider [phone] DO Unavailable NADIA SOTOMAYOR Attending Unavailable CHACHA EVANS Referring Unavailable CHACHA EVANS Primary Care Unavailable FAHEEM ROCK Attending Unavailable CHACHA EVANS Referring Unavailable CHACHA EVANS Primary Care Unavailable Chacha Evans MD Primary Care Provider [phone] Chacha Evans MD Primary Care Provider [phone] CHACHA EVANS Referring Unavailable CHACHA EVANS [...] Care Provider [phone] JOSUE HINOJOSA Attending Unavailable JOSUE HINOJOSA Attending Unavailable JOSUE HINOJOSA Attending Unavailable JOSUE HINOJOSA Attending Unavailable JOSUE HINOJOSA Attending Unavailable JOSUE HINOJOSA Attending Unavailable JOSUE HINOJOSA Attending Unavailable JOSUE HINOJOSA Attending Unavailable Medications Current Medications MedicationDrug Class(es)DatesSig (Normalized)Sig (Original)acetaminophen 325 mg / oxyCODONE hydrochloride 5 mg oral tablet (2 sources)Opioid AgonistStart: 09-05-2025 End: 18-78-2987jxsu 1 tablet by mouth every six hoursoxyCODONE-acetaminophen (Percocet) 5-325 MG tablet Indications: Tailor's bunion of right foot Take 1 tablet by mouth every 6 (six) hours for 5 days 20 tablet 09/05/2025 09/10/2025 [id number] 200 actuat albuterol 0.09 mg/actuat metered dose inhaler (20 sources)beta2-Adrenergic AgonistStart: 42-57-6065pltw 2 puff(s) by inhalation every four hours as needed for wheezingalbuterol (PROVENTIL HFA;VENTOLIN HFA) 90 mcg/actuation inhaler Indications: Upper respiratory tract infection, unspecified type , Cough in adult Inhale 2 puffs every 4 (four) hours as needed for wheezing. 18 g 4 02/13/2019 ActiveStart: 08-87-7809OBSGLO HFA 90 mcg/actuation inhaleralbuterol HFA (ProAir HFA) 90 mcg/act inhaler every 4 (four) hours. ActiveamLODIPine 10 mg oral tablet (20 sources)Dihydropyridine Calcium Channel BlockerStart: 21-95-8286bdMWDCZiui (NORVASC) 10 mg tablet Take 1 tablet (10 mg total) by mouth. 12/11/2024 Active Comment on above:TK 1 T PO QDamoxicillin 500 mg oral tablet (20 sources)Penicillin-class AntibacterialStart: 39-71-3248ciai 4 tablets by mouth once at mealtimeamoxicillin (Amoxil) 500 MG tablet Indications: History of left knee replacement 4 tabs PO once 30-60 mins before procedure with food 4 tablet 3 08/15/2025 Activeaspirin 81 mg delayed release oral tablet (1 source)Platelet Aggregation Inhibitor, Nonsteroidal Anti-inflammatory Drug Start: 84-24-1924znir 1 tablet by mouth once dailyAspirin 81 [...] oral capsule (20 sources)Tricyclic AntidepressantStart: 03-19-2025 End: 69-57-9271kzdugco (SINEquan) 10 MG capsule Indications: Insomnia, unspecified type Take 1-3 capsules at bed time 120 capsule 1 03/19/2025 Active Start: 51-30-1527mjowlpy (SINEquan) 10 MG capsule Indications: Insomnia, unspecified type 2 po q hs 180 capsule 1 07/04/2024 ActiveStart: 06-21-2024 End: 69-36-5127hwia 2 capsules by mouth at bedtimedoxepin (SINEquan) 10 MG capsule Indications: Insomnia, unspecified type TAKE 2 CAPSULES BY MOUTH AT BEDTIME 180 capsule 06/21/2024 07/04/2024 Discontinued (Reorder)ferrous sulfate 325 mg oral tablet (3 sources)take 1 tablet by mouth every twenty-four hoursIron 325 (65 Fe) MG 1 tablet Orally Once a day Activefluocinonide 0.0005 mg/mg topical ointment (20 sources)CorticosteroidStart: 29-55-1481azmnjxzmobri (Lidex) 0.05 % ointment APPLY TOPICALLY TO HANDS AND KNEES TWICE DAILY 03/10/2023 ActiveIron (3 sources)take 1 tablet by mouth once dailyIron 325 (65 Fe) MG 1 tablet Orally Once a day ActivelevoFLOXacin 500 mg oral tablet (20 sources)Quinolone AntimicrobialStart: 39-20-6263qlbg 1 tablet by mouth in the morninglevoFLOXacin (Levaquin) 500 MG tablet Take 1 tablet by mouth in the morning. 10/22/2022 Activelevothyroxine sodium 0.15 mg oral tablet (20 sources)l-ThyroxineStart: 71-08-1950rzmroccyggrae (SYNTHROID, LEVOTHROID) 150 MCG tablet Indications: Postablative hypothyroidism TAKE 1 TABLET BY MOUTH EVERY MORNING EXCEPT TAKE 2 TABLETS ON SATURDAYS AND SUNDAYS. 112 tablet 1 09/18/2025 ActiveStart: 04-16-2023 End: 80-21-2342esey 1 tablet by mouth once dailyLevothyroxine 150 mcg tablet Active 150 MCG PO Daily June 25, 2025 12:00am Complies with drug therapy Start: 56-78-8093mbru 1 tablet by mouth once dailylevothyroxine (SYNTHROID) [...] mg extended release oral tablet (20 sources)BiguanideStart: 56-77-5618lhdn 1 tablet by mouth every twenty-four hoursMetformin 500 mg tablet extended release 24 hr Active MG PO June 25, 2025 12:00am Complies withdrug therapyStart: 09-03-2023 End: 08-66-8486kctl 1 tablet by mouth once daily at dinnermetFORMIN XR (GLUCOPHAGE XR) 500 mg 24 hr tablet Indications: Type 2 diabetes mellitus without complication, without long-term current use of insulin ([facility]) TAKE 1 TABLET(500 MG) BY MOUTH DAILY WITH DINNER 90 tablet 3 08/21/2024 ActiveStart: 94-88-7848sraj 1 tablet by mouth at mealtimemetFORMIN (Glucophage) 500 MG tablet Take 500 mg by mouth in the evening. Take with meals. 10/21/2022 ActiveStart: 37-46-2568oxkl 2 tablets by mouth twice daily at [...] oral tablet (5 sources)beta-Adrenergic BlockerStart: 12-15-2024 End: 35-84-9172rhfk 1 tablet by mouth every twenty-four hours [...] 75 mg disintegrating oral tablet (20 sources)Start: 99-54-0862Crtqldjdhd (Nurtec Odt) 75 mg tablet,disintegrating Active 75 MG PO Every 48 hours as needed for migraine headache June 25, 2025 12:00am Complies with drug therapyStart: 49-41-7937feojkxrcyc (NURTEC ODT) 75 mg tablet,disintegrating DISSOLVE 1 TABLET ON THE TONGUE DAILY EVERY OTHER DAY NEEDED FOR MIGRAINE 07/04/2024 ActiveStart: 03-24-2024 End: 82-70-7094milw 1 tablet by mouth once daily as needed, then take 1 tablet by mouth every other day as neededRimegepant Sulfate (Nurtec) 75 MG tablet dispersible Indications: Insomnia, unspecified type Take 75 mg by mouth Daily as needed (migraine qod) 15 tablet 2 07/04/2024 10/02/2024 Activesimvastatin 20 mg oral tablet (20 sources)HMG-CoA Reductase InhibitorStart: 40-47-7399japg 1 tablet by mouth in the eveningsimvastatin (Zocor) 20 MG tablet Take 20 mg by mouth in the evening. 03/18/2023 Uzjzcf40 hr verapamil hydrochloride 200 mg extended release oral capsule (10 sources)Calcium Channel BlockerStart: 81-87-6482tfcu 2 capsules by mouth once daily in the eveningverapamil HCl ER (VERELAN PM) 200 mg capsule, [address] Indications: Essential hypertension Take 2 capsules (400 mg total) by mouth daily. 180 capsule 04/18/2019 ActiveStart: 15-22-8397kbkw 200 mg by mouth once daily at [...] oral tablet (11 sources)Opioid AgonistStart: 08-10-2024 End: 10-46-8398kxmf 1 tablet by mouth every six hours for painHYDROcodone- acetaminophen ([place]) 5-325 MG tablet Indications: Exostosis of left foot Take 1 tabletby mouth every 6 (six) hours if needed for severe pain for up to 5 days 20 tablet 08/10/2024 08/15/2024 ExpiredStart: 52-52-0879ogdn 1 tablet by mouth every four hours as needed for painHYDROcodone-Acetaminophen 5-325 MG 1 tablet as needed for pain Orally up to every 4 hrs for 3 days Jun, Active amitriptyline hydrochloride 25 mg oral tablet (16 sources)Tricyclic AntidepressantStart: 62-66-9764lkko 1 tablet by mouth once daily at bedtimeamitriptyline 25 mg tablet Take 1 tablet by mouth daily at bedtime. 0 09/19/2012 Activetake 1 tablet by mouth once dailyamitriptyline (ELAVIL) 10 mg tablet Take 1 tablet (10 mg total) by mouth nightly. Active Comment on above:Take 1 tablet by mouth daily at bedtime.lisinopril 5 mg oral tablet (10 sources)Angiotensin Converting Enzyme InhibitorStart: 39-30-0193zmpi 1 tablet by mouth once dailylisinopril (ZESTRIL, PRINIVIL) 5 mg tablet TK 1 T PO QD 1 04/11/2017 ActiveComment on above:TK 1 T PO QDmethylPREDNISolone (15 sources)CorticosteroidStart: 09-11-2022 End: 13-90-9589slsrpyVGPXOTFxirgi (Medrol Dospak) 4 MG tablets FOLLOW PACKAGE DIRECTIONS 09/11/2022 08/16/2024 Discontinued (Therapy completed)Start: 86-22-9252vknrrkYCXQAYTupcbl (Medrol Dospak) 4 MG tablets FOLLOW PACKAGE DIRECTIONS 09/11/2022 ActiveStart: 47-11-1076okxahgRIQVEPGhzbuh (Medrol Dospak) 4 MG tablets FOLLOW PACKAGE DIRECTIONS 0 09/11/2022 ActiveMULTIVITAMIN TABLET (1 source)Start: 80-35-9897GVINJUNFAVLJ TABLETpredniSONE 10 mg oral tablet (15 sources)Start: 08-02-2023 End: 14-28-0305xmue 2 tablets by mouth twice daily, then [...] 08/02/2023 08/16/2024 Discontinued (Therapy completed)Triamcinolone (5 sources)CorticosteroidStart: 50-01-3925Alzrsib -40 mg Jan, 40 mg Start: 10-82-8419Epegfuu -40 mg Jun, 40 mg Problems Active Problems Problem ClassificationProblemDateDocumented DateEpisodic/ChronicAcquired foot deformities (4 sources)Tailor's bunion of right foot; Translations: [Bunionette of right foot]31-24-8402HqbvfbppNpmnll of breast (19 sources)Intraductal carcinoma in situ of breast; Translations: [Intraductal carcinoma in situ of unspecified breast]Onset: 162637-22-2063Dorrdvh Complications of surgical procedures or medical care (11 sources)Postprocedural hypothyroidism; 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]Onset: 405959-74-7659KzxpswjBzdjzfyd atherosclerosis and other heart disease (4 sources)Atherosclerotic heart disease of [place] coronary artery without angina pectoris; Translations: [Atherosclerotic heart disease of [place] coronary artery with other forms of angina pectoris]Onset: 71-07-3999IihizsiTlseqqka mellitus without complication (20 sources)Type 2 diabetes mellitus without complications; Translations: [Diabetes mellitus]Onset: 664488-33-0505GepcfblDxcqhuouz of lipid metabolism (2 sources)Pure hypercholesterolemia, unspecified; Translations: [Pure hypercholesterolemia, unspecified]Onset: 05-60-7010YmvutmdVtqhshstg hypertension (11 sources)Hypertensive disorder; Translations: [Essential (primary) hypertension]Onset: 790301-69-8252LubwgqpZcrgfevi; including migraine (4 sources)Migraine without aura, not refractory ; Translations: [Chronic migraine without aura, not intractable, without status migrainosus]07-04-2024 ChronicMenstrual disorders (1 source)Irregular periods; Translations: [Irregular menstruation, unspecified] Onset: 802705-71-8570HidvhceXrewyswygbiop mental health disorders (2 sources)Primary insomnia; Translations: [Primary insomnia]74-72-6466Leshpxd Osteoarthritis (20 sources)Osteoarthritis of left knee joint; Translations: [Unilateral primary osteoarthritis, left knee]Onset: 11-04-2021 Resolved: 83-87-0323MnlioehOfabi aftercare (12 sources)Surgical follow-up; Translations: [Encounter for follow-up examination after completed treatment for conditions other than malignant neoplasm]34-20-6685GkmxnrbvRepok bone disease and musculoskeletal deformities (12 sources)Exostosis of left foot; Translations: [Other specified disorders of bone, ankle and foot]71-33-9165TcbzxhguUndkh congenital anomalies (20 sources)Congenital deformity of toe; Translations: [Congenital deformity of feet, unspecified, unspecified foot]Onset: 671359-72-7418LgkyilfNeidl connective tissue disease (10 sources)Pain in left foot; Translations: [Pain in left foot]08-10-2024 EpisodicOther connective tissue disease (2 sources)Pain in right foot; Translations: [Pain in right foot]09-05-2025 EpisodicOther female genital disorders (9 sources)Complex atypical endometrial hyperplasia; 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]]Onset: 349063-34-1821YtcjibfPatpt non- traumatic joint disorders (2 sources)Pain in left knee; Translations: [Pain in joint, lower leg]08-15-2024 EpisodicOther nutritional; endocrine; and metabolic disorders (2 sources)Morbid (severe) obesity due to excess calories; Translations: [Morbid (severe) obesity due to excess calories]Onset: 35-96-4696GvccctdEfhdz upper respiratory infections (1 source)Acute sinusitis, unspecified; Translations: [ACUTE SINUSITIS UNSPECIFIED]Onset: 12-76-0291MyetwvrjEyhbdera codes; unclassified (1 source)Family history of malignant neoplasm of breast; Translations: [FAMILY HX MALIG NEOPLASM OF BREAST]Onset: 83-37-5640GswqmysuDlebcpd disorders (11 sources)Hypothyroidism; Translations: [Hypothyroidism, unspecified]Onset: 101234-43-2680FvfwhffPnnmmjmekntt (3 sources)CONTACT W/AND (SUSP) EXPOS COVID-19; Translations: [CONTACT W/AND (SUSP) EXPOS COVID-19]Onset: 09-30-2022 Past or Other Problems Problem ClassificationProblemDateDocumented DateEpisodic/ChronicCancer of breast (14 sources)Personal history of malignant neoplasm of breast; Translations: [History of malignant neoplasm of breast]Onset: 82-59-5566KmatrzhuDztbnmklfxzpn of surgical procedures or medical care (9 sources)Non-healing surgical wound; Translations: [Other complications of procedures, not elsewhere classified, initial encounter]Onset: 11-16-2018 49-72-0755ZqjinbyjAaetx disorders and dislocations; trauma-related (4 sources)Other tear of medial meniscus, current injury, left knee, subsequent encounterOnset: 10-14-2021 Resolved: 95-70-1312QvldclopXuku disorders (9 sources)Mood disordersOnset: 780808-83-8434Pgfrwmx (20 sources)Onychomycosis; Translations: [Tinea unguium]Onset: 04-30-2023 15-42-8932FgbiuaixMblyi connective tissue disease (20 sources)Pain in both feet; Translations: [Pain in right foot]Onset: 569003-16-1499UyjulrhyGiebf connective tissue disease (20 sources)Tendinitis of right posterior tibial tendon; Translations: [Posterior tibial tendinitis, right leg]Onset: 785014-22-5491RfbekqutNxcbu diseases of veins and lymphatics (20 sources)Vascular insufficiency; Translations: [Venous insufficiency (chronic) (peripheral)]Onset: 259174-64-7299AehypvqxUdzbm ear and sense organ disorders (1 source)Subjective tinnitus; Translations: [Tinnitus, unspecified ear]Onset: 014576-31-8874KdprkfddWijwl screening for suspected conditions (not mental disorders or infectious disease) (2 sources)Abnormal result of other cardiovascular function study; Translations: [Abnormal result of other cardiovascular function study]Onset: 12-17-2024 EpisodicOther skin disorders (20 sources)Callosity; Translations: [Corns and callosities]Onset: 04-30-2023 72-89-4581MjvehtsrNjvumwew codes; unclassified (4 sources)Other specified postprocedural statesOnset: 10-14-2021 Resolved: 73-97-3241MhtsietxHlotsiej codes; unclassified (2 sources)Insomnia; Translations: [Insomnia, unspecified]56-74-6365Arpqrvec Respiratory failure; insufficiency; arrest (adult) (9 sources)Hypoxemic respiratory failure; Translations: [Respiratory failure, unspecified with hypoxia]Onset: 851447-47-0262FrosuhfyUufyulkwgunp (1 source)CONTACT W/AND (SUSP) EXPOS COVID-19; Translations: [CONTACT W/AND (SUSP) EXPOS COVID-19]Onset: 45-09-3515Lgovhvmhpfoc (9 sources)Onset: Results Test NameValueInterpretationReference RangeFacilityXR Foot - right 3 Viewson 11-73-0267Papmeec Result: Three views of the right foot: AP, MO, LAT were performed today in the office. Radiographs were read by myself and demonstrate: No evidence of acute fracture or dislocation. Normal joint spaces noted with no evidence of narrowing or osteophyte formation. Resection of the bone along the lateral 5th metatarsal headSt. [facility] HealthcareRadiology Study observation (narrative)[facility] SystemOffice Visiton 73-99-4497Oqqrxv-up visit [id number] Richelle Montes 1965 F Date Provider Department Center 08/17/2025 DIPESH FAULKNER Family History Problem Relation Age of Onset Breast cancer Mother Heart disease Father Family Status - Relation Status Age at Mother Father Alive Level of Service:67749 AL OFFICE/OUTPATIENT ESTABLISHED MOD MDM 30 MIN Reason for Visit and Comments: Follow-up [754791] - Patient is here today for a 6 month follow. Patient need surgery clearance for a Bunionectomy. Patient has no cardiac complaints at this time Hypertension [157793] Hyperlipidemia [182] Coronary Artery Disease [187]NormalUnAshtabula County Medical CenterOrders Onlyon 07-02-8118Ztccnn [id number] Richelle Montes 1965 F Date Provider Department Center 08/17/2025 [id number], NAHUN Mann Family History Problem Relation Age of Onset Breast cancer Mother Heart disease Father Family Status - Relation Status Age at Mother Father AliveNormalUniversCleveland Clinic Union HospitalOffice Visiton 02-05-2025 Follow-up [id number] Richelle Montes 1965 F Date Provider Department Center 02/05/2025 DIPESH FAULKNER Family History Problem Relation Age of Onset Breast cancer Mother Heart disease Father Family Status - Relation Status Age at Mother Father Alive Level of Service:01224 AL OFFICE/OUTPATIENT ESTABLISHED MOD MDM 30 MIN Reason for Visit and Comments: Hypertension [011331] Chest Pain [893464]NormalUnAshtabula County Medical CenterCREATININE, SERUMon 97-94-1089Kctasusijh [Mass/Vol]0.68 mg/dLNormal0.60-1.20UnAshtabula County Medical CenterComment on above:Performed By: #### [id number] #### [facility] ([facility]) [address] [place], [place] [address]FVOCNFLYXV FILTRATION RATE ML/MIN/1.73 SQ M.GGXDQSFIZ273.5 mL/min/1.73m*2Normal>60.0UnAshtabula County Medical CenterComment on above: Result Comment: [facility]???s estimated glomerular filtration rate (eGFR) will no [...] affect anyone group of individuals.Performed By: #### [id number] #### [facility] ([place]) [address] [place], [place] [address]GQW HEART CORONARY W IV CONTRAST W OR WO FFRCTon 92-22-4929IAG HEART CORONARY W IV CONTRAST W OR [...] signed: Nidhi Aldridge MD. Not VldtdInvalid Interpretation CodeUnAshtabula County Medical CenterLabon [id number] Richelle Montes 1965 F Date Provider Department Center 01/25/2025 2245-[facility] OPD LAB RESOURCE [facility] OPD [facility] C Family History Problem Relation Age of Onset Breast cancer Mother Family Status - Relation Status Age at Mother DeceasedNormalUniversCleveland Clinic Union HospitalPOCT Glucose Fingerstick on 83-17-0480Bpajmbd [Mass/Vol]114 mg/lSBjbfdcfv57 - 99 mg/dLRiverside Methodist Hospital SystemInterpretation and review of laboratory resultsAbnormMarshfield Clinic Hospital SystemPOCT Hemoglobin A1con 66-86-4810GfZ3l (Bld) [Mass fraction]5.9 %4 - 7 %[facility] SystemOffice Visit on 45-33-5448Huqvii-up [id number] Richelle Montes 1965 F Date Provider Department Center 12/15/2024 34184-OGCZVFDIPESH RASCON ALLY [facility] Family History Problem Relation Age of Onset Breast cancer Mother Family Status - Relation Status Age at Mother Level of Service:08348 AL OFFICE/OUTPATIENT NEW MODERATE MDM 45 MINUTES Reason for Visit and Comments: Chest Pain [759374] - Denies chest pain and SOB. Had stress test last week. Hypertension [121491] Hyperlipidemia [182] - Had lipids in Sep 2024NormalUniversCleveland Clinic Union HospitalCOMPREHENSIVE METABOLIC PANELon 37-80-6401Kiejgkl [Mass/Vol]4.1 g/dLNormal 3.2-5.3ProMedcrestwood medical center [place] HospitalComment on above:Performed By: #### VALE THYR, 2132-07 #### [facility] ([id number]) [address], [address] [place], [place] [address]NAF [Catalytic activity/Vol]81 U/VBbocvw94-190AsbTkwkgj [facility] HospitalComment on above:Performed By: #### VALE THYR, 2132-07 #### [facility] ([id number]) [address], [address] [place], [place] [address]HAD [Catalytic activity/Vol]13 U/LNormal0-31ProMedcrestwood medical center [place] HospitalComment on above:Performed By: #### VALE THYR, 2132-07 #### [facility] ([id number]) [address], [address] [place], [place] [address]Bwyhw gap [Moles/Vol]10 mmol/LNormal5-15Pro[facility]ica [facility] HospitalComment on above:Performed By: #### VALE THYLeni, 2132-07 #### [facility] ([id number]) [address], [address] [place], [place] [address]NUZ [Catalytic activity/Vol]22 U/LNormal0-41ProMedica [facility] HospitalComment on above:Performed By: #### VALE THYR, 2132-07 #### [facility] ([id number]) [address], [address] [place], [place] [address]Awiszjvvc [Mass/Vol]0.8 mg/dLNormal0.3-1.2ProMedica [facility] HospitalComment on above:Performed By: #### VALE, THYR, 2132-07 #### [facility] ([id number]) [address], [address] [place], [place] [address]Gooybdn [Mass/Vol]9.0 mg/dLNormal8.5-10.5PFairfield Medical CenterComment on above:Performed By: #### VALE THYR, 2132-07 #### [facility] ([id number]) [address], [address] [place], [place] [address]Dflfqpgb [Moles/Vol]104 mmol/NOgvgpp70-443QgwItpdfl [place] HospitalComment on above:Performed By: #### VALE THYR, 2132-07 #### [facility] ([id number]) [address], [address] [place], [place] [address]DV1 [Moles/Vol]27 mmol/AVkqxaq40-75RpkEiwczwFairfield Medical Center Comment on above:Performed By: #### VALE THYR, 2132-07 #### [facility] ([id number]) [address], [address] [place], [place] [address]Gyglnkzvxs [Mass/Vol]0.90 mg/dLNormal0.40-1.00ProSouthern [place] Medical CenterComment on above:Result Comment: METHOD TRACEABLE TO IDMS STANDARD Performed By: #### VALE THYR, 2132-07 #### [facility] ([id number]) [address], [address] [place], [place] [address]QWS/1.73 sq M.predicted among non-blacks MDRD (S/P/Bld) [Vol rate/Area]75 mL/min/{1.73_m2}Normal>59ProSouthern [place] Medical CenterComment on above: Result Comment: Reported eGFR is based on the CKD-EPI 1 equation that does not use a race coefficient.Performed By: #### VALE, THYR, 2132-07 #### [facility] ([id number]) [address], [address] [place], [place] [address]Pawjxde [Mass/Vol]101 mg/oYLyoy68-54AnwXewniiSelect Medical [facility] Comment on above:Performed By: #### VALE, THYR, 2132-07 #### [facility] ([id number]) [address], [address] [place], [place] [address]Hulssfbih [Moles/Vol]3.8 mmol/LNormal3.5-5.0ProMedica [place] HospitalComment on above:Performed By: #### VALE THYR, 2132-07 #### [facility] ([id number]) [address], [address] [place], [place] [address]Syqfvws [Mass/Vol]6.8 g/dLNormal6.0-8.0[facility] Comment on above:Performed By: #### VALE THYR, 2132-07 #### [facility] ([id number]) [address], [address] [place], [place] [address]Sqeeec [Moles/Vol]141 mmol/UZdjeoi249-627TnpFzgkle [place] HospitalComment on above:Performed By: #### [facility]E [facility], 2132-07 #### [facility] ([id number]) [address], [address] [place], [place] [address]Ptlt nitrogen [Mass/Vol]22 mg/dLNormal5-23ProMedica [place] HospitalComment on above:Performed By: #### VALE, THYR, 2132-07 #### [facility] ([id number]) [address], [facility] [address] [place], [place] [address]NIAHCEVLAHXA - ALBUMIN:CREATININE URINE RATIOon 08-25-2024 ALB/CREAT RATIO12.6 mg/g creatNormal0.0-30.0ProMedica [facility] HospitalComment on above:Performed By: #### MALARTI #### [facility] ([id number]) [address], [address] [place], [place] [address]Bgwszsx DL <= 20 mg/L (U) [Mass/Vol]2.3 mg/dLHigh0.0-1.9 [facility] HospitalComment on above:Performed By: #### CEDRIC #### [facility] ([id number]) [address], [address] [place], [place] [address]RVGGS GAYQC727.00 mg/dLNormalSelect Medical OhioHealth Rehabilitation HospitalComment on above:Performed By: #### CEDRIC #### [facility] ([id number]) [address], [address] [place], [place] [address]FSWI Glucose Fingerstickon 55-38-4717Qdouuqo [Mass/Vol]145 mg/dL Zkfgcrmn94 - 99 mg/dLTogus VA Medical CenterInterpretation and review of laboratory resultsAbnoKindred Hospital PittsburghPOCT Hemoglobin A1con 90-32-9759VxA8l (Bld) [Mass fraction]5.7 %4 - 7 %[facility] SystemInterpretation and review of laboratory resultsAbnoKindred Hospital PittsburghTHYROID PROFILEon 38-80-3361Dnvz T4 [Mass/Vol]1.23 ng/dLNormal0.61-1.60ProSouthern Ohio Medical CenterComment on above: Performed By: #### VALE, THYR, 2132-07 #### [facility] ([id number]) [address] [facility], [address] [place], [place] [address]JFJ6.05 uIU/mLNormal0.49-4.67Select Medical OhioHealth Rehabilitation HospitalComment on above:Performed By: #### VALE, THYR, 2132-07 #### [facility] ([id number]) [address], [address] [place], [place] [address]GSHFUTG B12on 61-56-7786Exktwkssm (Vitamin B12) [Mass/Vol]619 pg/rRKwwhwv420-372FjmEamlyt Toledo HospitalComment on above:Performed By: #### VALE, THYR, 2132-07 #### [facility] ([id number]) [address], [address] [place], [place] [address]SD Foot - left 3 Viewson 25-88-9635Jzjgflg Result: Three views of the left foot: [...] loss of the ends of the toes 2,3,4NOMarshfield Medical Center - Ladysmith Rusk CountyRadiology Study observation (narrative)[facility] SystemXR Foot - left 3 Viewson 02-11-0804QSYUSaint Luke's Health System Imaging Result: Three views of the left foot: AP, MO, LAT were performed today in the office. Radiographs were read by myself and demonstrate: No evidence of acute fracture or dislocation. Narrowing to the tarsometatarsal joint left. 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 There is enlargement and prominence to the distal left 3rd digitNOMarshfield Medical Center - Ladysmith Rusk CountyRadiology Study observation (narrative)[facility]–SmithvilleCT Glucose Fingerstickon 62-13-2298Tqhikjj [Mass/Vol]94 mg/dL65 - 99 mg/dLEncompass HealthPOCT Hemoglobin A1con 98-22-8494JnI5l (Bld) [Mass fraction]5.5 g/dL4 - 7 g/dLChildren's Hospital of Wisconsin– Milwaukee SystemTHYROID PROFILEon 79-48-4496Nyaz T4 [Mass/Vol]1.40 ng/dL Normal0.61-1.60ProSouthern Ohio Medical CenterComment on above:Performed By: #### THYR #### [facility] ([id number]) [address] [facility], [address] [place], [place] [address]VIK7.10 uIU/mLLow0.49-4.67ProSouthern Ohio Medical CenterComment on above:Performed By: #### THYR #### [facility] ([id number]) [address] [facility], [address] [place], [place] [address]PPVIJFBQNLOH - ALBUMIN:CREATININE URINE RATIOon 11-12-2023 ALB/CREAT RATIO13.5 mg/g creatNormal0.0-30.0ProHocking Valley Community HospitalComment on above:Performed By: #### MALBU #### [facility] ([id number]) [address], [address] [place], [place] [address]Zrjulye DL <= 20 mg/L (U) [Mass/Vol]0.7 mg/dLNormal0.0-1.[address] John Of God HospitalComment on above:Performed By: #### MALBU #### [facility] ([id number]) [address] [facility], [address] [place], [place] [address]OQGYO CREAT51.79 mg/dLNormalProWvumedicine Harrison Community Hospital HospitalComment on above:Performed By: #### MALBU #### [facility] ([id number]) [address] [place] [address], [address] [place], [place] [address]DYCMCHL PROFILEon 22-80-2904Nggj T4 [Mass/Vol]1.37 ng/dLNormal 0.61-1.60ProHocking Valley Community HospitalComment on above:Performed By: #### THYR #### [facility] ([id number]) [address] [place] [address]GWZ3.06 uIU/mLLow0.49-4.67ProHocking Valley Community HospitalComment on above:Performed By: #### THYR #### [facility] ([id number]) [address] [place] [address]VDLYbv 32-65-5904SYGFRityiyodi (RADTSA) RICHELLE MONTES ([id number]) 1965 F Date Time Provider Department 04/06/23 [...] Fully Assessed Reason for Visit: Patient Question [0064] Prescriptions as of 04/06/2023 - amLODIPine (NORVASC) [...] 06/27/2014 Encounter Status:Closed by COURTNEY SCHULER on 04/06/23[facility]D MARGARITA CADon 26-08-6652CE MAMM DIAGNOSTIC 3D MARGARITA CAD Patient: RICHELLE MONTES Robbie Exam Date: 12/21/2022 : 1965 Gender:F Ordering : DR NORA BROOKS M.D. Admission #: [id number] Family : Order #: [id number] CLICK HERE TO VIEW EXAM RADIOLOGY REPORT [...] breast cancer at age 75. LOCATION: [facility] BREAST COMPOSITION: Almost entirely fatty. FINDINGS: [...] by: Jett Magdaleno MD on 12/21/2022 at 13:48NoG[facility]be[facility] Covid-[facility] PCR (CVDTBH)on 98-55-1000WNWD-CoV-2 (COVID-19) RNA ERIC+probe Ql (Unsp spec)Not detectedNormalNOT DETECTEDThe [facility] HospitalComment on above:Result Comment: When diagnostic testing [...] for this test is supported by the Endoscopy Specialty Technician of Health and Human Service's declaration that [...] longer be used).Performed By: #### CVDTBH #### [facility] [address] [place] [address] Dr. Lisbeth Cleaning AND B AGon 14-98-9983MWDUUBBNDIADSCleveland Clinic Marymount HospitalComment on above:Result Comment: Negative for Flu A protein angiten. Infection due to Flu A cannot be ruled out. FluA angiten in the sample may be below the detection limit of the test.Performed By: #### INFLUAB #### [facility] [address] [place] [address] Dr. Lisbeth RamirezINFLUBNEGOhioHealth Riverside Methodist Hospital on above: Result Comment: Negative for Flu B protein antigen. Infection due to Flu B cannot be ruled out. FluB antigen in the sample may be below the detection limit of the test.Performed By: #### INFLUAB #### [facility] [address] [place] [address] Dr. Lisbeth Cleaning AGNegativeNormalNEGATIVE SEE COMMENTThe [facility] on above:Performed By: #### INFLUAB #### [facility] [address] [place] [address] Dr. Lisbeth Allred AGNegativeNormalNEGATIVE SEE COMMENTThe [facility] HospitalComment on above:Performed By: #### INFLUAB #### [facility] [address] [place] [address] Dr. Lisbeth RamirezINTERNAL CONTROLSWithin Normal LimitsNormalWithin Normal Limits The [facility] HospitalComment on above:Performed By: #### INFLUAB #### [facility] [address] [place] [address] Dr. Lisbeth RamirezINSULINon 07-37-1753Xomurdi84.4 uIU/mLCritically high2.6-24.9The Buffalo HospitalComment on above:Performed By: #### INSULIN #### [facility] [address] [place] [address] Dr. Lisbeth Ching AUTO DIFFon 29-57-0553YTEE #0.1 103/ulNormal0.0-0.1The [facility] HospitalComment on above:Performed By: #### CBC #### [facility] [address] [place] [address] Dr. Lisbeth RamirezBasophils/100 WBC (Bld)0.8 %Normal0.2-2.0The [facility] Comment on above:Performed By: #### CBC #### [facility] [address] [place] [address] Dr. Lisbeth Cagle #0.2 103/ulNormal0.0-0.7The [facility] HospitalComment on above: Performed By: #### CBC #### [facility] [address] [place] [address] Dr. Lisbeth Zaldivarosinophils/100 WBC (Bld)2.5 %Normal0.9-7.0[facility] Comment on above:Performed By: #### CBC #### [facility] [address] [place] [address] Dr. Lisbeth Zaldivarrythrocyte distribution width (RBC) [Ratio]13.0 %Sszwyy74.0-15.0 The [facility] HospitalComment on above:Performed By: #### CBC #### [facility] [address] [place] [address] Dr. Lisbeth RamirezHematocrit (Bld) [Volume fraction]42.1 %Wzptwh23.0-48.0The [facility] HospitalComment on above:Performed By: #### CBC #### [facility] [address] [place] [address] Dr. Lisbeth RamirezHemoglobin (Bld) [Mass/Vol]14.0 g/jUBambxi36.0-16.0The [facility] HospitalComment on above:Performed By: #### CBC #### [facility] [address] [place] [address] Dr. Lisbeth Enamorado #0.02 10e3/ulNormal0.00-0.03The [facility] HospitalComment on above:Performed By: #### CBC #### [facility] [address] [place] [address] Dr. Lisbeth Enamorado %0.2 %Normal0.0-0.5The [facility] HospitalComment on above: Performed By: #### CBC #### [facility] [address] [place] [address] Dr. Lisbeth Eastman #1.8 103/ulNormal1.2-3.8The [facility] HospitalComment on above:Performed By: #### CBC #### [facility] [address] [place] [address] Dr. Lisbeth Dempseyhocytes/100 WBC (Bld)20.9 %Ffkqxv91.5-60.0The [facility] HospitalComment on above:Performed By: #### CBC #### [facility] [address] [place] [address] Dr. Lisbeth HaydenOUR LADY [facility] DIFF REQNONormalThe [facility] HospitalComment on above: Performed By: #### CBC #### [facility] [address] [place] [address] Dr. Lisbeth Garcia (RBC) [Entitic mass]28.7 adUlnorn95.7-34.0The [facility] HospitalComment on above:Performed By: #### CBC #### [facility] [address] [place] [address] Dr. Lisbeth Wilkes (RBC) [Mass/Vol]33.3 g/dSFieohv85.9-35.2The [facility] HospitalComment on above:Performed By: #### CBC #### [facility] [address] [place] [address] Dr. Lisbeth Wilkes (RBC) [Entitic vol]86.4 gQKmrtzz76.0-99.0The [facility] HospitalComment on above:Performed By: #### CBC #### [facility] [address] [place] [address] Dr. Lisbeth Sears #0.8 103/ulNormal0.3-0.8The [facility] HospitalComment on above:Performed By: #### CBC #### [facility] [address] [place] [address] Dr. Lisbeth Aliceaocytes/100 WBC (Bld)8.8 %Normal1.7-12.0The [facility] Comment on above:Performed By: #### CBC #### [facility] [address] [place] [address] Dr. Lisbeth Jaramillo #5.8 103/ulNormal1.4-6.5The [facility] HospitalComment on above:Performed By: #### CBC #### [facility] [address] [place] [address] Dr. Lisbeth De La Cruzophils/100 WBC (Bld)66.8 %Xojsne70.0-75.0The [facility] HospitalComment on above:Performed By: #### CBC #### [facility] [address] [place] [address] Dr. Lisbeth Reeder mean volume (Bld) [Entitic vol]10.5 fLNormal9.5-13.5The [facility] HospitalComment on above:Performed By: #### CBC #### [facility] [address] [place] [address] Dr. Lisbeth RamirezPLT222 103/fiCrwzyw351-469Tud [facility] HospitalComment on above: Performed By: #### CBC #### [facility] [address] [place] [address] Dr. Lisbeth SampsonC4.87 106/ulNormal4.20-5.40The [facility] HospitalComment on above:Performed By: #### CBC #### [facility] [address] [place] [address] Dr. Lisbeth RamirezWBC8.7 103/ulNormal4.0-11.0The [facility] HospitalComment on above: Performed By: #### CBC #### [facility] [address] [place] [address] Dr. Lisbeth MALLORY INDEX T7on 78-68-2321EFD4.25Jwwcsk9.30-4.50The [facility] Hospital for Rehabilitationment on above:Performed By: #### TSH, CMP, LIPID, T7 ####[facility] [address] [place] [address]Dr. Lisbeth RamirezT3U33.0 %Tmlflj70.0-39.0The [facility] HospitalComment on above: Performed By: #### TSH, CMP, LIPID, T7 ####[facility] [address] [place] [address]Dr. Lisbeth RamirezT4 [Mass/Vol]11.50 ug/dLNormal 4.80-13.90The [facility] HospitalComment on above:Performed By: #### TSH, CMP, LIPID, T7 ####[facility] [address] [place] [address]Dr. Lisbeth RamirezGLYCOHEMOGLOBIN A1Con 82-23-6618QFS RECOMMENDATIONSEE BELOW NormalThe [facility] on above:Result Comment: ADA RECOMMENDED LIMIT 4.0 - 6.0 ADA THERAPEUTIC TARGET < 7.0 ACTION SUGGESTED > 7.0Performed By: #### A1C #### [facility] [address] [place] [address] Dr. Lisbeth RamirezGlucose [Mass/Vol]105 mg/dLNormalThe [facility] HospitalComhills & dales general hospital on above:Performed By: #### A1C #### [facility] [address] [place] [address] Dr. Lisbeth RamirezHbA1c (Bld) [Mass fraction]5.3 %Normal4.5-6.2The [facility] HospitalComment on above:Performed By: #### A1C #### [facility] [address] [place] [address] Dr. Lisbeth Stevenson 34-74-6483Tbju [Mass/Vol]54.0 ug/sVZphwzy23.0-170.0The [facility] HospitalComment on above:Performed By: #### IRON #### [facility] [address] [place] [address] Dr. Lisbeth RamirezLIPID PROFILEon 86-30-4358DVRE-HDL RATIO NORMSMercy Health St. Joseph Warren HospitalComment on above:Result Comment: 3.3 - 4.4 LOW RISK 4.4 - 7.1 AVERAGE RISK 7.1 - 11.0 MODERATE RISK >11.0 HIGH RISKPerformed By: #### TSH, CMP, LIPID, T7 ####[facility] [address] [place] [address]Dr. Lisbeth RamirezCholesterol [Mass/Vol]187 mg/dLNormal<=200The [facility] HospitalComment on above:Performed By: #### TSH, CMP, LIPID, T7 ####[facility] [address] [place] [address]Dr. Lisbeth Ramirez Cholesterol in HDL [Mass/Vol]67 mg/dLCritically vsha63-08GiuCenterville Comment on above:Performed By: #### TSH, CMP, LIPID, T7 ####[facility] [address] [place] [address]Dr. Lisbeth RamirezCholesterol in LDL [Mass/Vol]95.8 mg/dLProMedica Fostoria Community HospitalComment on above:Performed By: #### TSH, CMP, LIPID, T7 ####[facility] [address] [place] [address]Dr. Lisbeth RamirezCholesterol.total/Cholesterol in HDL [Mass ratio]2.8 {ratio}NormalCentervilleComhills & dales general hospital on above:Performed By: #### TSH, CMP, LIPID, T7 ####[facility] [address] [place] [address]Dr. Lisbeth RamirezHDL NORMAL> or = 60 mg/dl - LOW CARDIOVASCULAR RISK <40 mg/dl - HIGH CARDIOVASCULAR RISKProMedica Fostoria Community HospitalComment on above:Performed By: #### TSH, CMP, LIPID, T7 ####[facility] [address] [place] [address]Dr. Lisbeth RamirezLDL CALC NORMALSEE Cincinnati VA Medical CenterComment on above:Result Comment: <100 mg/dl OPTIMAL 100 - 129 mg/dl NEAR OR ABOVE OPTIMAL 130 - 159 mg/dl BORDERLINE HIGH 160 - 189 mg/dl HIGH >190 mg/dl VERY HIGHPerformed By: #### TSH, CMP, LIPID, T7 ####[facility] [address] [place] [address]Dr. Lisbeth ChangTriglyceride [Mass/Vol]121 mg/dLNormal<=150The [facility] on above:Performed By: #### TSH, CMP, LIPID, T7 ####[facility] [address] [place] [address]Dr. Lisbeth ChangVLDL CALC24.2 mg/dLNormalThe [facility] HospitalComhills & dales general hospital on above:Performed By: #### TSH, CMP, LIPID, T7 ####[facility] [address] [place] [address]Dr. Lisbeth ChangPROF 14(COMP METB)on 44-31-9237Bkhckzf [Mass/Vol]4.1 g/dLNormal3.4-5.0The [facility] on above:Performed By: #### TSH, CMP, LIPID, T7 ####[facility] [address] [place] [address]Dr. Lisbeth ChangAlbumin/Globulin [Mass ratio]0.9 {ratio}NormalThe [facility] on above:Performed By: #### TSH, CMP, LIPID, T7 ####[facility] [address] [place] [address]Dr. Lisbeth ChangALP [Catalytic activity/Vol]94 U/RDlwsom08-322Jac [facility] on above:Performed By: #### TSH, CMP, LIPID, T7 ####[facility] [address] [place] [address]Dr. Lisbeth ChangALT [Catalytic activity/Vol]13 U/LCritically dpt81-26Kop [facility] on above:Performed By: #### TSH, CMP, LIPID, T7 ####[facility] [address] [place] [address]Dr. Lisbeth ChangAnion gap [Moles/Vol]11.4 mmol/LNormalThe [facility] HospitalComment on above:Performed By: #### TSH, CMP, LIPID, T7 ####[facility] [address] [place] [address]Dr. Yilan ChangAST [Catalytic activity/Vol]23 U/L Alnujf43-31App [facility] HospitalComhills & dales general hospital on above:Performed By: #### TSH, CMP, LIPID, T7 ####[facility] [address] [place] [address]Dr. Yilan ChangBilirubin [Mass/Vol]0.7 mg/dLNormal0.2-1.0The [facility] HospitalComhills & dales general hospital on above:Performed By: #### TSH, CMP, LIPID, T7 ####[facility] [address] [place] [address]Dr. Yilan Ramirez Calcium [Mass/Vol]9.5 mg/dLNormal8.5-10.1The [facility] HospitalComhills & dales general hospital on above: Performed By: #### TSH, CMP, LIPID, T7 ####[facility] [address] [place], [place] [address]Dr. Yilan ChangChloride [Moles/Vol]104 mmol/L Rjplgt86-139Qzj [facility] on above:Performed By: #### TSH, CMP, LIPID, T7 ####[facility] [address] [place] [address]Dr. Yilan ChangCO2 [Moles/Vol]25.9 mmol/UEujejf48.0-32.0The [facility] on above:Performed By: #### TSH, CMP, LIPID, T7 ####[facility] [address] [place] [address]Dr. Yilan Ramirez Creatinine [Mass/Vol]0.67 mg/dLNormal0.55-1.02The [facility] on above:Performed By: #### TSH, CMP, LIPID, T7 ####[facility] [address] [place] [address]Dr. Yilan ChangEGFR-AF BARBADIAN>60Normal>=60The [facility] Hospital for Rehabilitationment on above:Performed By: #### TSH, CMP, LIPID, T7 ####[facility] [address] [place] [address]Dr. Yilan ChangEGFR-NON AF BARBADIAN>60Normal>=60The [facility] HospitalComment on above:Performed By: #### TSH, CMP, LIPID, T7 ####[facility] [address] [place] [address]Dr. Yilan ChangGlobulin (S) [Mass/Vol]4.2 g/dLNormalThe [facility] HospitalComment on above:Performed By: #### TSH, CMP, LIPID, T7 ####[facility] [address] [place] [address]Dr. Yilan ChangGlucose [Mass/Vol]103 mg/qRCgbjeb71-846Vvd [facility] HospitalComhills & dales general hospital on above:Performed By: #### TSH, CMP, LIPID, T7 ####[facility] [address] [place], [place] [address]Dr. Yilan ChangPotassium [Moles/Vol]3.6 mmol/LNormal 3.5-5.1The [facility] HospitalComment on above:Performed By: #### TSH, CMP, LIPID, T7 ####[facility] [address] [place], [place] [address]Dr. Yilan ChangProtein [Mass/Vol]8.3 g/dLCritically high6.4-8.2The [facility] on above:Performed By: #### TSH, CMP, LIPID, T7 ####[facility] [address] [place], [place] [address]Dr. Yilan Ramirez Sodium [Moles/Vol]138 mmol/RZeyclr017-301Qnd [facility] on above: Performed By: #### TSH, CMP, LIPID, T7 ####[facility] [address] [place], [place] [address]Dr. Yilan ChangUrea nitrogen [Mass/Vol]12.0 mg/dLNormal7.0-18.0The [facility] HospitalComment on above:Performed By: #### TSH, CMP, LIPID, T7 ####[facility] [address] [place], [place] [address]Dr. Yilan ChangUrea nitrogen/Creatinine [Mass ratio]17.9 mg/mgNormal The [facility] HospitalComment on above:Performed By: #### TSH, CMP, LIPID, T7 ####[facility] [address] [place] [address]Dr. Lisbeth ValdiviaHon 86-46-5064OIC4.572 uIU/mLNormal0.358-3.740[place] Comment on above:Performed By: #### TSH, CMP, LIPID, T7 ####[facility] [address] [place] [address]DrJuliana Gasca (CLEAN/CATCH) EMERGENCY ROOM TECH/MICRO IF IND.on 49-13-4415Ypqzcbhti Ql (U)NegativeNormal NEGATIVECentervilleComment on above:Performed By: #### UACSBLAISE UMICRO #### [facility] [address] [address] [address] Lisbeth RamirezClarity (U)CLEARNormalCLEARCentervilleComment on above: Performed By: #### UACSBLAISE UMICRO #### [facility] [address] [address] [address] Lisbeth Gonzales (U)YELLOWNormalYELLOWCentervilleComment on above: Performed By: #### UACSBLAISE, UMICRO #### [facility] [address] [address] [address] Lisbeth RamirezGlucose Ql (U)NegativeNormalNEGATIVECentervilleComment on above:Performed By: #### UACSIND, UMICRO #### [facility] [address] [address] [address] Lisbeth RamirezHemoglobin Ql (U)MODERATEAbnormalNEGATIVECenterville Comment on above:Performed By: #### UACSIND, UMICRO #### [facility] [address] [address] [address] Lisbeth RamirezKetones Ql (U)NegativeNormalNEGATIVECentervilleComment on above:Performed By: #### UACSIND, UMICRO #### [facility] [address] [address] [address] Lisbeth RamirezLEUKOCYTESTRACEAbnormalNEGATIVEThe [facility] HospitalComment on above:Performed By: #### JOSE BARRERARO #### [facility] [address] [address] [address] Lisbeth Aquinotrite Ql (U)NegativeNormalNEGATIVEThe [facility] HospitalComment on above:Performed By: #### JOSE BARRERARO #### [facility] [address] [address] [address] Lisbeth RamirezpH (U)6.0 [pH]Normal5-9The [facility] HospitalComment on above: Performed By: #### JOSE BARRERARO #### [facility] [address] [address] [address] Lisbeth RamirezSPEC GRAVITY1.758Ouoqzi9.005-<=1.025The [facility] HospitalComment on above:Performed By: #### JOSE BARRERARO #### [facility] [address] [address] [address] Lisbeth Gasca PROTEINNegativeNormalNEGATIVE/ TRACEThe [facility] Comment on above:Performed By: #### JOSE BARRERARO #### [facility] [address] [address] [address] Lisbeth RamirezUR MICRO INDINDICATEDNormalThe [facility] HospitalComment on above: Performed By: #### JOSE BARRERARO #### [facility] [address] [address] [address] Lisbeth Joshuagen Qn (U)0.2 {Ricci'U}/dLNormal0.2 - 1.0The [facility] HospitalComment on above:Performed By: #### SMITA BARRERAICRO #### [facility] [address] [address] [address] Lisbeth Abdi MICROSCOPIC ONLYon 07-80-1455SHJPDVZUOCAN SEENNormalNONE SEENThe [facility] HospitalComment on above:Performed By: #### JOSHUACSBLAISE UMICRO #### [facility] [address] [address] [address] Lisbeth Morris identified Cx Nom (U)NOT INDICATEDNormalThCleveland Clinic Union HospitalComment on above:Performed By: #### JOSHUACSBLAISE, UMICRO #### [facility] [address] [address] [address] Lisbeth Varma SEENNormalNONE SEENCentervilleComment on above:Performed By: #### JOSHUACSBLAISE, UMICRO #### [facility] [address] [address] [address] Lisbeth Mcintoshystals LM Nom (Urine sed)NONE SEENNormalNONE SEENCentervilleComhills & dales general hospital on above:Performed By: #### BRUCE UMICRO #### [facility] [address] [address] [address] Bob ChangEpithelial cells LM Ql (Urine sed)FEWAbnormalNONE SEEN /RAREThe [facility] HospitalComment on above:Performed By: #### BRUCE UMICRO #### [facility] [address] [address] [address] Lisbeth TrammellE SEENNormtnNONE SEENCentervilleComhills & dales general hospital on above:Performed By: #### BRUCE UMICRO #### [facility] [facility] [address] [address] [address] Lisbeth RamirezRybarCPN0-3Kedakclz6-6Vfl [facility] HospitalComment on above:Performed By: #### BRUCE UMICRO #### [facility] [address] [address] [address] Lisbeth RamirezWBC0-2AbnormalNONE SEENCentervilleComhills & d[facility] on above: Performed By: #### BRUCE UMICRO #### [facility] [address] [address] [address] Lisbeth RamirezXR knee LT 2Von 99-17-4822RD knee LT [address] [place] [address] XRay Report Signed Patient: Richelle Montes MR#: [id number] : 1965 Acct:[id number] Age/Sex: 56 / F ADM Date: 01/12/22 Loc: SOX Room: Type: [facility] Attending Dr: Heath Silva MD Ordering [...] Carney Jr., M.D.01/12/2022 4:14 PM Dictation Location: [place] [address] Transcribed By: [facility] 01/12/22 1614 Dictated By: Andrea Carney Jr, MD 01/12/22 1608 Signed By: 01/12/22 1614[facility] 3D MARGARITA CADon 62-19-9631XD MAMM DIAGNOSTIC 3D MARGARITA CADPatient: RICHELLE MONTES Exam Date: 01/01/2022 : 1965 Gender:F Ordering : DR NORA BROOKS M.D. Admission #: [id number] Family : Order #: [id number] CLICK HERE TO VIEW EXAM RADIOLOGY REPORT [...] breast cancer at age 75. LOCATION: [facility] BREAST COMPOSITION: Almost entirely fatty. FINDINGS: [...] by: Moshe Castillo M.D. on 01/01/2022 at 15:42[facility] 27-35-1197DJJ Qn2.23 uIU/mlNormal0.47-4.68[facility] Diabetes Care CenterComment on above:Performed By: #### 750, 800, 1000, 1005, 4500, 4520, 4575 #### [facility] Unless Otherwise Noted [address] [place] [address] / COLA #4724/CLIA # [id number] B12on 01-30-1782Omeoqqptx (Vitamin B12) [Mass/Vol]713.0 pg/oSYauhxv411.0-931.0[facility] Diabetes Care CenterComment on above:Performed By: #### 750, 800, 1000, 1005, 4500, 4520, 4575 #### [facility] Unless Otherwise Noted [address] [address] / COLA #4724/CLIA # [id number] A1Con 77-07-9079ZmZ2x (Bld) [Mass fraction] 5.6 G/DLNormal4.5-6.0[facility] and Diabetes Care CenterComment on above: Performed By: #### 750, 800, 1000, 1005, 4500, 4520, 4575 #### [facility] Unless Otherwise Noted [address] [place] [address] / COLA #4724/CLIA # [id number] 77-57-2207Onaxljp [Mass/Vol]4.4 g/dL Normal3.5-5.0[facility] and Diabetes Care CenterComment on above:Performed By: #### 750, 800, 1000, 1005, 4500, 4520, 4575 #### [facility] Unless Otherwise Noted [address] [place] [address] / COLA #4724/CLIA # [id number] [Catalytic activity/Vol]98.0 U/FJkzamk78.0-126.0 [facility] Care CenterComment on above:Performed By: #### 750, 800, 1000, 1005, 4500, 4520, 4575 #### [facility] Unless Otherwise Noted [address] [place] [address] / COLA #4724/CLIA # [id number] [Catalytic activity/Vol]16.0 U/DQvawti25.0-69.0 [facility] Care CenterComment on above:Performed By: #### 750, 800, 1000, 1005, 4500, 4520, 4575 #### [facility] Unless Otherwise Noted [address] [address] / COLA #4724/CLIA # [id number] gap [Moles/Vol]7.0 mmol/LLow10.0-15.0Endocrine and Diabetes Care CenterComment on above:Performed By: #### 750, 800, 1000, 1005, 4500, 4520, 4575 #### [facility] Unless Otherwise Noted [address] [place] [address] / COLA #4724/CLIA # [id number] [Catalytic activity/Vol]39.0 U/EHtvncn77.0-46.0 [facility] Care CenterComment on above:Performed By: #### 750, 800, 1000, 1005, 4500, 4520, 4575 #### [facility] Unless Otherwise Noted [address] [place] [address] / COLA #4724/CLIA # [id number] Ql (U)0.40 mg/dLNormal0.20-1.30Endocrine and Diabetes Care CenterComment on above:Performed By: #### 750, 800, 1000, 1005, 4500, 4520, 4575 #### [facility] Unless Otherwise Noted [address] [place] [address] / COLA #4724/CLIA # [id number]/Cre Ratio18.8 RatioNormal7.0-27.0Endocrine and Diabetes Care CenterComment on above:Performed By: #### 750, 800, 1000, 1005, 4500, 4520, 4575 #### [facility] Unless Otherwise Noted [address] [place] [address] / COLA #4724/CLIA # [id number] [Mass/Vol]9.6 mg/dLNormal8.4-10.2End[facility] Diabetes Care CenterComment on above:Performed By: #### 750, 800, 1000, 1005, 4500, 4520, 4575 #### [facility] Unless Otherwise Noted [address] [place] [address] / COLA #4724/CLIA # [id number] [Moles/Vol]107.0 mmol/KZexhwn43.0-107.0 End[facility] Diabetes Care CenterComment on above:Performed By: #### 750, 800, 1000, 1005, 4500, 4520, 4575 #### [facility] Unless Otherwise Noted [address] [place] [address] / COLA #4724/CLIA # [id number] [Moles/Vol]28.0 mmol/GPuiahg80.0-30.0Endocrine and Diabetes Care CenterComment on above:Performed By: #### 750, 800, 1000, 1005, 4500, 4520, 4575 #### [facility] Unless Otherwise Noted [address] [place] [address] / COLA #4724/CLIA # [id number] [Mass/Vol]0.8 mg/dLNormal0.5-1.0Endocrine and Diabetes Care CenterComment on above:Performed By: #### 750, 800, 1000, 1005, 4500, 4520, 4575 #### [facility] Unless Otherwise Noted [address] [place] [address] / COLA #4724/CLIA # [id number]/1.73 sq M predicted among blacks MDRD (S/P/Bld) [Vol rate/Area]96.9 ml/m1.73NormalEndocrine and Diabetes Care CenterComment on above:Performed By: #### 750, 800, 1000, 1005, 4500, 4520, 4575 #### [facility] Unless Otherwise Noted [address] [place] [address] / COLA #4724/CLIA # [id number]/1.73 sq M predicted among non-blacks MDRD (S/P/Bld) [Vol rate/Area]80.1 ml/m1.73NormalEndocrine and Diabetes Care Center Comment on above:Performed By: #### 750, 800, 1000, 1005, 4500, 4520, 4575 #### [facility] Unless Otherwise Noted [address] [place] [address] / COLA #4724/CLIA # [id number]/1.73 sq M predicted among non-blacks MDRD (S/P/Bld) [Vol rate/Area]139.1 ml/m1.73NormValleywise Behavioral [facility] Maryvalendocrine and Diabetes Care Center Comment on above:Performed By: #### 750, 800, 1000, 1005, 4500, 4520, 4575 #### [facility] Unless Otherwise Noted [address] [place] [address] / COLA #4724/CLIA # [id number] [Mass/Vol]91.0 mg/bNLjaulo78.0-106.0 End[facility] and Diabetes Care CenterComment on above:Performed By: #### 750, 800, 1000, 1005, 4500, 4520, 4575 #### [facility] Unless Otherwise Noted [address] [place] [address] / COLA #4724/CLIA # [id number] [Moles/Vol]3.9 mmol/LNormal3.5-5.1 End[facility] Diabetes Care CenterComment on above:Performed By: #### 750, 800, 1000, 1005, 4500, 4520, 4575 #### [facility] Unless Otherwise Noted [address] [place] [address] / COLA #4724/CLIA # [id number] [Mass/Vol]7.6 g/dLNormal6.3-8.2Endocrine and Diabetes Care CenterComment on above:Performed By: #### 750, 800, 1000, 1005, 4500, 4520, 4575 #### [facility] Unless Otherwise Noted [address] [place] [address] / COLA #4724/CLIA # [id number] [Moles/Vol]142.0 mmol/DBbdjnf274.0-145.0 End[facility] Diabetes Care CenterComment on above:Performed By: #### 750, 800, 1000, 1005, 4500, 4520, 4575 #### [facility] Unless Otherwise Noted [address] [place] [address] / COLA #4724/CLIA # [id number] nitrogen [Mass/Vol]15.0 mg/dLNormal7.0-17.0 [facility] and Diabetes Care CenterComment on above:Performed By: #### 750, 800, 1000, 1005, 4500, 4520, 4575 #### [facility] Unless Otherwise Noted [address] [place] [address] / COLA #4724/CLIA # [id number] 22-74-1620Cuyt T4 [Mass/Vol]1.10 ng/dLNormal 0.64-1.79Endocrine and Diabetes Care CenterComment on above:Performed By: #### 750, 800, 1000, 1005, 4500, 4520, 4575 #### [facility] Unless Otherwise Noted [address] [address] / COLA #4724/CLIA # [id number] 39-81-4708Xuqkybechuq [Mass/Vol]209.0 mg/dL High0.0-199.0Endocrine and Diabetes Care CenterComment on above:Performed By: #### 750, 800, 1000, 1005, 4500, 4520, 4575 #### [facility] Unless Otherwise Noted [address] [place] [address] / COLA #4724/CLIA # [id number] in HDL [Mass/Vol]66.0 mg/gTRlca15.0-60.0 Endocrine and Diabetes Care CenterComment on above:Performed By: #### 750, 800, 1000, 1005, 4500, 4520, 4575 #### [facility] Unless Otherwise Noted [address] [place] [address] / COLA #4724/CLIA # [id number] in LDL [Mass/Vol]118.4 mg/dLHigh 0.0-100.0[facility] and Diabetes Care CenterComment on above:Performed By: #### 750, 800, 1000, 1005, 4500, 4520, 4575 #### [facility] Unless Otherwise Noted [address] [address] / COLA #4724/CLIA # [id number] in VLDL [Mass/Vol]24.6 mg/dLNormal Endocrine and Diabetes Care CenterComment on above:Performed By: #### 750, 800, 1000, 1005, 4500, 4520, 4575 #### [facility] Unless Otherwise Noted [address] [place] [address] / COLA #4724/CLIA # [id number].total/Cholesterol in HDL [Mass ratio]3.2 {ratio}NormalEndocrine and Diabetes Care CenterComment on above:Performed By: #### 750, 800, 1000, 1005, 4500, 4520, 4575 #### [facility] Unless Otherwise Noted [address] [place] [address] / COLA #4724/CLIA # [id number] [Mass/Vol]123.0 mg/dLNormal0.0-150.0 End[facility] and Diabetes Care CenterComment on above:Performed By: #### 750, 800, 1000, 1005, 4500, 4520, 4575 #### [facility] Unless Otherwise Noted [address] [place] [address] / COLA #4724/CLIA # [id number] MICROALBUMINon 97-90-4240Fmrjcgenoz (U) [Mass/Vol]128.3 mg/dLNormalEndocrine and Diabetes Care CenterComment on above: Performed By: #### 750, 800, 1000, 1005, 4500, 4520, 4575 #### [facility] Unless Otherwise Noted [address] [place] [address] / COLA #4724/CLIA # [id number] mg/LHigh0.0-30.0Endocrine and Diabetes Care CenterComment on above:Performed By: #### 750, 800, 1000, 1005, 4500, 4520, 4575 #### [facility] Unless Otherwise Noted [address] [facility] [address] [place] [address] / COLA #4724/CLIA # [id number] A/C Ratio28.8 mg/gNormal0.0-30.0Endocrine and Diabetes Care CenterComment on above:Performed By: #### 750, 800, 1000, 1005, 4500, 4520, 4575 #### [facility] Unless Otherwise Noted [address] [facility] [address] [place] [address] / COLA #4724/CLIA # [id number] Vital Signs Date TimeVital SignValuePerforming FsdzlwueqVrhjwzkr77-12-2239 16:12-0400Body ruvmbg701.48 cmChacha Evans MD Work Phone: [phone]08-18-2025 16:12-0400 Body mass index (BMI) [Ratio]42.6 kg/g9CkvimfrChacha Evans MD Work Phone: [phone]08-18-2025 16:12-0400 Body .68 kgChacha Evans MD Work Phone: [phone] [place], [place] 3169808-18-2025 16:12-0400 Diastolic blood zgtgjowi897 mm[Hg]Chacha Evans MD Work Phone: [phone]08-18-2025 16:12-0400 Heart rate88 /Mami Evans MD Work Phone: [phone])[address]08-18-2025 16:12-0400 Respiratory rate18 /Mami Evans MD Work Phone: [phone])[address]08-18-2025 16:12-0400 SaO2% (BldA) [Mass fraction]99 %Chacha Evans MD Work Phone: [phone]08-18-2025 16:12-0400 Systolic blood rtcsvelh803 mm[Hg]Chacha Evans MD Work Phone: [facility]02-21-2025 13:47-0500 Body mass index (BMI) [Ratio]44.07 kg/l2PfmbjaFaheem Rock HEALTH DIRECTOR-TOOL SMITH Work Phone: [phone]02-21-2025 13:47-0500Body jfitod726.32 kgFaheem Rock HEALTH DIRECTOR-TOOL SMITH Work Phone: [phone]02-21-2025 13:47-0500Diastolic blood frzovtoo65 mm[Hg]Faheem Rock HEALTH DIRECTOR-[employer] Work Phone: [phone] [place], [place] 43[address]402-21-2025 13:47-0500Heart rate 91 /minFaheem Rock HEALTH DIRECTOR-TOOL SMITH Work Phone: [phone]02-21-2025 13:47-0500Systolic blood tcsozkud066 mm[Hg]Faheem Rock HEALTH DIRECTOR-[employer] Work Phone: [phone] [place], [place] 43[address]10-18-2024 12:39-0400Body mass index (BMI) [Ratio]43.48 kg/k0SugunnFaheem Rock HEALTH DIRECTOR-TOOL [employer]ITH Work Phone: 1(310)[address]10-18-2024 12:39-0400Body wgxcqe929.86 kgFaheem Rock HEALTH DIRECTOR-[employer] Work Phone: [phone] [place], [place] [address]10-18-2024 12:39-0400Diastolic blood hsnkowyh09 mm[Hg]Faheem Rock HEALTH DIRECTOR-[employer] Work Phone: [phone] [place], [place] 43[address]10-18-2024 12:39-0400Heart rate 88 /minFaheem Rock HEALTH DIRECTOR-TOOL SMITH Work Phone: [phone] [place] [address] [employer] Emskxq06-04-3018 12:39-0400Systolic blood qfmkaumz902 mm[Hg]Faheem Rock HEALTH DIRECTOR-[employer] SMITH Work Phone: [phone] [place], [place] 4314408-27-2024 16:34-0400Diastolic blood opsawuti86 mm[Hg]Alma Street DO Work Phone: [facility] SystemEhensbgxhb77-65-8811 16:34-0400Heart rate88 /min Alma Street DO Work Phone: noCitizens Memorial HealthcareOdueqxtsir56-37-1010 16:34-1001TaY8% (BldA) [Mass fraction]98 %Alma Street DO Work Phone: noCitizens Memorial HealthcareTcytvldyrw18-03-4001 16:34-0400Systolic blood uqcuxycn844 mm[Hg]Alma Street DO Work Phone: [facility] SystemNdrfxviatg61-86-7041 12:05-0400Body mass index (BMI) [Ratio]42.53 kg/k0SudneNadia Sotomayor MD Work Phone: 1([phone] [place], [place] [address]Lifecrowd04-26-2024 12:05-0400Body zrvogo394.51 kgNadia Sotomayor MD Work Phone: [phone] [place], [place] [address]04-26-2024 12:05-0400Diastolic blood whlpelgq80 mm[Hg]Nadia Sotomayor MD Work Phone: 1([phone] [place], [place] [address]localbacon Vujhor56-91-1583 12:05-0400Heart rate 73 /minNadia Sotomayor MD Work Phone: [phone] [place] [address] [employer] Uhxwdb69-40-0313 12:05-0400Systolic blood pqxtqsgi591 mm[Hg]Nadia Sotomayor MD Work Phone: 1(675)925-[address] [place], [place] [address]localbacon Wdffew04-66-1747 16:00-0500Body cnxgoy446.48 cmThomas Olexa Other [facility] Other 03-07-2022 16:00-0500Body mass index (BMI) [Ratio] 45.17 kg/u5Wiufns Olexa Other [employer] Other 03-07-2022 16:00-0500Body paohtc261.04 kgThomas Olexa Other [facility] Other 12-28-2021 10:00-0500Body foqfpl899.48 cmThomas Olexa Other [facility] Other 12-28-2021 10:00-0500Body mass index (BMI) [Ratio] 46.82 kg/b7Dgvdzm Olexa Other [facility] Other 12-28-2021 10:00-0500Body kjarxf045.12 kgThomas Olexa Other [facility] Other 12-07-2021 14:30-0500Body .48 cmThomas Olexa Other [facility] Other 12-07-2021 14:30-0500Body mass index (BMI) [Ratio] 46.16 kg/w1Krynvh Olexa Other [facility] Other 12-07-2021 14:30-0500Body bfbkcy788.49 kgThomas Olexa Other [facility] Other 07-12-2019 18:58-0400Body wlhvdu588.1 KgEndocrine and Diabetes Care CenterComment on above:Performed By: #### 750, 800, 1000, 1005, 4500, 4520, 4575 #### [facility] Unless Otherwise Noted [address] [place] [address] / COLBlack #4724/ANTONY # [id number] Encounters Encounter DateEncounter TypeCare ProviderFacilityStart: 09-18-2025 End: 81-54-1558LgwnudHukyqrWilfred Mcgill Adult Endocrinology, A Department of [facility] HospitaledicMercy Memorial HospitalComment on above:Postablative hypothyroidismStart: 09-17-2025 End: 28-54-6061Ryngns follow up visit related to original Mattie Hinojosa DPM Work Phone: [facility] PodiatryComment on above:Surgery follow- up examination (Primary Dx)Start: 09-17-2025 End: 37-52-4560pysnbcsenkRYKDKRWUV H SMITHNot AvailableStart: 09-17-2025 End: 84-70-1852Bgwady flowsGallo Hinojosa DPM Work Phone: [facility] PodiatryStart: 09-17-2025 End: 00-88-4624Oshqdl flowsheetJosue Hinojosa DPM Work Phone: [facility] [place] PodiatryStart: 09-04-2025 End: 34-84-7874xgalyfgbqfOAARDKXBW H SMITHNot AvailableStart: 09-04-2025 End: 94-54-7487Pkrhse outpatient visit 15 minutesCaalfonso Hinojosa DPM Work Phone: [facility] PodiatryComment on above:Tailor's bunion of right foot (Primary Dx); Right foot painStart: 09-04-2025 End: 69-90-3361Nsolhq flowsGallo Hinojosa DPM Work Phone: [facility] [place] PodiatryStart: 09-04-2025 End: 27-74-2272Pdlufn Araceli Hinojosa DPM Work Phone: [facility] [place] PodiatryStart: 08-17-2025 End: 64-69-6554unqndizfbfHFHALWhite Hospitaltart: 08-15-2025 End: 05-29-2137Kkqhfirbg encounterMataz VALDEZ Work Phone: [facility] OrthopaedicsComment on above:Med Refill Start: 07-30-2025 End: 83-47-3347Fkuxhbt encounter procedureJosue Hinojosa DPM Work Phone: noMS [place] PodiatryComment on above:Corns and callosities (Primary Dx); Pain in both feet; Onychomycosis; Type 2 diabetes mellitus without complication, without long-term current use of insulin (HCC)Start: 07-30-2025 End: 14-48-7898zeqqpegrsgKFERDXECS H SMITHNot AvailableStart: 07-30-2025 End: 17-46-1352Yuqldc Araceli Hinojosa DPM Work Phone: [facility]iatryStart: 07-30-2025 End: 79-81-4478Hcxnqq Araceli Hinojosa DPM Work Phone: [facility] PodiatryStart: 06-25-2025 End: 69-72-3247vqmpssifylOzhnevh M Hoy MD Work Phone: [facility] Work Phone: Start: 06-25-2025 End: 81-01-6986Rvrxjxl encounter procedureNicevelyn Schroeder [facility] Neurology Work Phone: Start: 06-19-2025 End: 22-36-6662JdiwncOxtuqg Hook LPNPWillis-Knighton South & the Center for Women’s Healthrosio Adult Endocrinology, A Department of [facility] HospitalComment on above:Postablative hypothyroidismStart: 04-19-2025 End: 06-00-3012fmqrzlwpoyAKMQBXVCF H SMITHNot AvailableStart: 04-19-2025 End: 08-31-4063Vqeuutw encounter procedureJosue Hinojosa DPM Work Phone: noms [facility] PODIATRYComment on above:Corns and callosities (Primary Dx); Pain in both feet; Type 2 diabetes mellitus without complication, without long-term current use of insulin (HCC); OnychomycosisStart: 04-19-2025 End: 59-97-8258Lktzss Araceli BRYANM Work Phone: noms [facility] PODIATRYStart: 04-19-2025 End: 95-81-2410Jgzpjh Araceli Hinojosa DPM Work Phone: noms [facility] PODIATRYStart: 03-18-2025 End: 96-85-1513NaqfykDkiqirJennifer Rock APRN-TOOL SMITH Work Phone: [facility] Physicians Adult EndocrinologyComment on above:Postablative hypothyroidismStart: 02-26-2025 End: 48-27-7644Yeahsg outpatient visit 15 minutesCaalfonso BRYANM Work Phone: noms [facility] PODIATRYComment on above:Osteoarthritis of midtarsal joint of left foot (Primary Dx); Osteoarthritis of right ankle and foot; Pain in both feet; Tailor's bunion of right footStart: 02-26-2025 End: 03-95-3388qhbfpcuiraCAHHUPDKW H SMITHNot AvailableStart: 02-26-2025 End: 75-07-1562Obhvwo flowsGallo Hinojosa DPM Work Phone: noms [facility] PODIATRYStart: 02-26-2025 End: 07-59-7270Bmphyv flowsGallo Hinojosa DPM Work Phone: noms [facility] PODIATRYStart: 02-05-2025 End: 94-03-3579emohgwionoFWSYOMemorial Health Systemtart: 01-25-2025 End: 50-11-7991fedqmqrexbOCWFGMemorial Health Systemtart: 01-10-2025 End: 41-69-9804hddnixcgabDZJFJRWSI H SMITHNot AvailableStart: 01-10-2025 End: 39-32-5679Yhvenjb encounter procedureJosue Hinojosa DPM Work Phone: noms [facility] PODIATRYComment on above:Onychomycosis (Primary Dx); Corns and callosities; Pain in both feet; Type 2 diabetes mellitus without complication, without long-term current use of insulin ([facility])Start: 01-10-2025 End: 25-86-6960Qwdsdi flowsGallo Hinojosa DPM Work Phone: noms [facility] PODIATRYStart: 01-10-2025 End: 77-46-7675Wlxqou Araceli Hinojosa DPM Work Phone: noms [facility] PODIATRYStart: 12-29-2024 End: 70-87-2573Mjsvbs outpatient visit 25 minutesFaheem Alexandre Yuriy HEALTH DIRECTOR-TOOL SMITH Work Phone: proMedcrestwood medical center Adult Endocrinology, A Department of [facility] HospitalComment on above:Type 2 diabetes mellitus without complication, without long-term current use of insulin ([facility]) (Primary Dx); Postablative hypothyroidismStart: 12-29-2024 End: 51-05-7055tognfccfqeUCCASU J. PHILLIPSMercy Health Tiffin Hospitaltart: 12-15-2024 End: 79-13-1606uwcfcqvsauAFSMBWhite Hospitaltart: 11-20-2024 End: 85-30-6936Seuuwfsop encounterMattstew VALDEZ Work Phone: noms [facility] ORTHOComment on above:dentistStart: 11-02-2024 End: 14-99-2034Zklfgl Araceli Hinojosa DPM Work Phone: noms [facility] PODIATRYStart: 11-02-2024 End: 84-06-1743Fvyezn Araceli Hinojosa DPM Work Phone: noms [facility] PODIATRYStart: 11-02-2024 End: 32-61-0325Aalkej follow up visit related to original Mattie Hinojosa DPM Work Phone: noms [facility] PODIATRYComment on above:Surgery follow-up examination (Primary Dx); Exostosis of left foot; Osteoarthritis of midtarsal joint of left foot; Osteoarthritis of right ankle and foot; Onychomycosis; Corns and callosities; Pain in both feet; Type 2 diabetes mellitus without complication, without long-term current use of insulin ([facility]/HCC)Start: 11-02-2024 End: 08-66-4167icjzmgoeuoJUKQLROPD H SMITHNot AvailableStart: 10-09-2024 End: 13-75-7721waicwrsjwjOHXNGRESZ H SMITHNot AvailableStart: 10-09-2024 End: 26-76-4123Ccsgiu follow up visit related to original Mattie Hinojosa DPM Work Phone: [facility] PODIATRYComment on above:Surgery follow-up examination (Primary Dx); Exostosis of left foot; Left foot painStart: 10-09-2024 End: 30-27-9916Deobcc flowsGallo Hinojosa DPM Work Phone: [facility] PODIATRYStart: 10-09-2024 End: 20-50-1366Pxelpx flowsGallo Ngo Hinojosa DPM Work Phone: [facility] PODIATRYStart: 09-19-2024 End: 44-56-0091TsrjwtLlxjua J Phillips HEALTH DIRECTOR-Phorm Work Phone: pRelay Foodscrestwood medical center Physicians Adult EndocrinologyComment on above:Postablative hypothyroidismStart: 09-04-2024 End: 78-85-3852Kqslip follow up visit related to original Mattei Hinojosa DPM Work Phone: [facility] PODIATRYComment on above:Surgery follow-up examination (Primary Dx); Exostosis of left foot; Left foot painStart: 09-04-2024 End: 55-75-9524Bwlzko flowsGallo Hinojosa DPM Work Phone: [facility] PODIATRYStart: 09-04-2024 End: 61-15-3144Knnhiv flowsheetJosue Ngo Hinojosa DPM Work Phone: [facility] PODIATRYStart: 08-25-2024 End: 71-43-9725hmvazmarueZTWFZDF M HOYProMedUniversity Hospitals [facility] HospitalStart: 08-25-2024 End: 10-43-8603Kzwjww outpatient visit [facility] danversFaheem Rock HEALTH DIRECTOR-TOOL SMITH Work Phone: p[facility] Women’s HealthDonya Labs Physicians Adult EndocrinologyComment on above:Type 2 diabetes mellitus without complication, without long-term current use of insulin ([facility] [place] (Primary Dx); Postablative hypothyroidismStart: 08-25-2024 End: 45-67-2479kwvxkqvmisEYOAPN [facility] Start: 08-21-2024 End: 23-03-8412Jakhrc follow up visit related to original Mattie Hinojosa DPM Work Phone: [facility] PODIATRYComment on above:Surgery follow-up examination (Primary Dx); Exostosis of left foot; Left foot painStart: 08-21-2024 End: 13-69-8465Otcmbg flowsheetJosue Ngo Hinojosa DPM Work Phone: [facility] PODIATRYStart: 08-21-2024 End: 58-81-9422Xthcnp flowsheetJosue Ngo Hinojosa DPM Work Phone: noms SWS PODIATRYStart: 08-20-2024 End: 49-69-9257RboelqNcdqqd J Phillips HEALTH DIRECTOR-TOOL SMITH Work Phone: [facility]icians Adult EndocrinologyComment on above:Type 2 diabetes mellitus without complication, without long-term current use of insulin ([facility])Start: 08-16-2024 End: 27-29-3444Yxlauv outpatient visit 15 minutesMataz VALDEZ Work Phone: noms FB ORTHOPAEDICSComment on above:Acute pain of left knee (Primary Dx); History of left knee replacementStart: 08-16-2024 End: 47-07-3727Eiuowr Mark VALDEZ Work Phone: noms FB ORTHOPAEDICSStart: 08-16-2024 End: 47-76-7615Cuznjm Mark VALDEZ Work Phone: noms FB ORTHOPAEDICSStart: 08-14-2024 End: 36-51-0560Mtqwhp follow up visit related to original Mattie Ngo Hinojosa DPM Work Phone: noms SWS PODIATRYComment on above:Surgery follow-up examination (Primary Dx); Exostosis of left foot; Left foot painStart: 08-14-2024 End: 72-54-0522Pbznyz flowsheetJosue Hinojosa DPM Work Phone: noms [facility] PODIATRYStart: 08-14-2024 End: 69-94-3300Mcycwh flowsheetJosue Hinojosa DPM Work Phone: noms [facility] PODIATRYStart: 08-10-2024 End: 78-37-5620Gwkiuc flowsheetJosue Hinojosa DPM Work Phone: noms [facility] PODIATRYStart: 08-10-2024 End: 30-80-9809Sxsjkh flowsheetJosue Hinojosa DPM Work Phone: noms [facility] PODIATRYStart: 08-10-2024 End: 59-02-8733Qmefhi outpatient visit 15 minutesCaalfonso Hinojosa DPM Work Phone: noms [facility] PODIATRYComment on above:Exostosis of left foot (Primary Dx); Left foot pain; Osteoarthritis of midtarsal joint of left foot; Osteoarthritis of right ankle and footStart: 07-24-2024 End: 88-17-4680Eyfnegp encounter procedureJosue Hinojosa DPM Work Phone: noms [facility] PODIATRYComment on above:Onychomycosis (Primary Dx); Pain in both feet; Corns and callositiesStart: 07-24-2024 End: 40-65-0251Jjordt flowsGallo Hinojosa DPM Work Phone: noms [facility] PODIATRYStart: 07-24-2024 End: 79-51-6146Zrvanj flowsheetJosue Hinojosa DPM Work Phone: noms [facility] PODIATRYStart: 07-04-2024 End: 56-99-1775Gefhgt outpatient visit 15 minutesNicole Yenifer DO Work Phone: noms [place] STATE ROUTEComment on above:Insomnia, unspecified type; Chronic migraine without aura without status migrainosus, not intractable ([facility]/HCC); Tension headache; Primary insomniaStart: 07-04-2024 End: 64-95-7503Lofsbb flowsheetNicole Yenifer DO Work Phone: noms [facility] ROUTEStart: 07-04-2024 End: 75-82-6817Tskvrz flowsheetNicole Yenifer DO Work Phone: noms [facility] ROUTEStart: 03-03-2024 End: 62-92-4390xtlldxtekdYBDTR E [facility] Start: 03-03-2024 End: 02-05-0425Gkdmdf outpatient visit 25 minutesNadia Sotomayor MD Work Phone: pRelay Foodsoda Physicians Adult EndocrinologyComment on above:Type 2 diabetes mellitus without complication, without long-term current use of insulin ([facility]) (Primary Dx); Postablative hypothyroidismStart: 11-26-2023 End: 08-45-0775Qkfjnks encounter procedureJosue Hinojosa DPM Work Phone: NOXB EXT DEPComment on above:Primary osteoarthritis, left ankle and foot (Primary Dx); Primary osteoarthritis, right ankle and footStart: 56-13-9155Ixmslj Ruperto Rock HEALTH DIRECTOR-TOOL SMITH Work Phone: pRelay Foodstli Physicians Adult EndocrinologyComment on above:Postablative hypothyroidism (Primary Dx)Start: 11-12-2023 End: 78-26-5591ccdtyashvgVHMJGO J PH[facility]IPSMercy [facility] Start: 82-83-2384Qwjtswhtq encounterG Yuri Brooks MD Work Phone: Radiation OncologyComment on above:Patient Question Start: 12-21-2022 End: 62-46-0564grdsnyyajcTS NORA MOSHERRFacility:I1Qcfjh: 09-28-2022 End: 63-10-4299hikvjgarxiWU CHACHA EVANSFacility:E8Mfuzp: 62-39-2144Igpdfblqc for general adult medical examination without abnormal findingsDR CHACHA Arreolae [facility]Start: 08-28-2022 End: 75-71-4042yuthxrohiqIH CHACHA HOYFacility:C1Srsis: 08-28-2022 End: 43-93-8040Lbjplsesl for general adult medical examination without abnormal findingsDR CHACHA HOYFacility:Y8Rbalf: 99-02-4501Tdybyhvvy for other preprocedural examinationDR DOCTOR ELMORECTtaryn [facility] HospitalStart: 06-10-2022 End: 61-57-7466xxywngmkivPD CHACHA HOYFacility:S4Mdlfz: 06-10-2022 End: 47-03-5267Kryxadoox for other preprocedural examinationDR CHACHA HOY Facility:S3Ibdvd: 02-03-2022 End: 58-15-0921xmchmmoyctGvcxsv Olexa Other [facility] Other Start: 70-92-7174Oyiqky outpatient visit 15 minutes Heath [facility]ky [facility] BellevueStart: 01-12-2022 End: 46-64-0125yviggpaycoLaznzw Olexa Other [employer] Other Start: 44-29-3252Yupeto outpatient visit 15 minutes Heath Rojas OrthopedicsStart: 01-01-2022 End: 08-71-1498vlspvtdjwtWA CHACHA HOYFacility:M9Dsupe: 11-04-2021 End: 86-89-3693gnbrdvydtbGbdwmp Olexa Other [facility] Other Start: 00-91-5563Qfigqj outpatient visit 15 minutes Heath Gtzy OrthopedicsStart: 10-14-2021 End: 64-70-3382sqqwsuxxigYitjhn Olexa Other [employer] Other Start: 72-66-3850Wqlgui outpatient visit 15 minutes Heath Reyna [place] [facility] BellevueStart: 09-11-2021 End: 64-00-8282tflaadntvbSlrrpk Olexa Other [employer] Other Start: 69-97-3656Tjdhroluu encounterThomas OlexaLOREE Rojas OrthopedicsStart: 10-24-2018 End: 58-41-1030Lfygdji encounter procedureDEFAULT PHYSICIANFacility:UTMCStart: 25-34-9898Owyayfy encounter procedureFaheem Rock HEALTH DIRECTOR-TOOL SMITH Work Phone: p[facility] Procedures DateProcedureProcedure DetailPerforming ClinicianStart: 94-44-1291Bepvy foot complete minimum 3 viewsJosue Hinojosa DPM Work Phone: start: 12-29-2024 End: 38-05-9922Njqw bld gluc mntr dev cleared fda spec home useFaheem Rock HEALTH DIRECTOR-TOOL SMITH Work Phone: start: 13-94-6778Ktgs bld gluc mntr dev cleared fda spec home useFaheem Rock HEALTH DIRECTOR-TOOL SMITH Work Phone: start: 53-25-0348Slehiqqbmvah [Mass/volume] in Urine by Test stripFaheem Rock HEALTH DIRECTOR-TOOL SMITH Work Phone: start: 30-27-0927Lqvlx foot complete minimum 3 views Josue Hinojosa DPM Work Phone: start: 52-28-8379Fdqba foot complete minimum 3 views Josue Hinojosa DPM Work Phone: start: 03-03-2024 End: 78-47-0613Uoxw bld gluc mntr dev cleared fda spec home useNadia Sotomayor MD Work Phone: start: 69-62-4740Lesawucaimwh [Mass/volume] in Urine by Test stripFaheem Rock HEALTH DIRECTOR-TOOL SMITH Work Phone: start: 11-94-7621XjnqxfjtseuVnaqaedcl Smith DPM Work Phone: History of operative procedure on kneeHistory of left knee replacementAgapitotaz Alexandre Morales VALDEZ Work Phone: History of operative procedure on kneeHistory of left knee replacementMataz Alexandre Morales VALDEZ Work Phone: History of operative procedure on kneeHistory of left knee replacementAgapitofaithstew Schroeder Morales VALDEZ Work Phone: Plan of Treatment DateCare ActivityDetailAuthorStart: 15-13-5361Eryjk BMI ScreeningAdult BMI ScreeningRiverside Methodist Hospital SystemStart: 96-50-0975Jinnvfzp foot examination Diabetic Foot ExamProAcmc Healthcare System Glenbeigh SystemStart: 14-93-6559Ngauhv Use: Diabetic Statin Use: DiabeticRiverside Methodist Hospital SystemStart: 22-64-7066Hdonrhc Screening Tobacco ScreeningAsheville Specialty Hospitaltart: 11-05-2025 End: 43-26-4323Ujsbdri encounter hsfrmsgav57/29/2025 4:30 PM EST Procedure Visit [facility] [address] [place] [address] Josue Hinojosa DPM [address] [place] [address] PANDA Rojas PodiatryStart: 09-21-2025 End: 23-83-6975Fgoobfq encounter tzxrrrorv19/14/2025 11:30 AM EST Office Visit [facility] [address] [place] [address] Chris Nielsen PA [address] [place] [address] PANDA Hernandez OrthopaedicsStart: 09-17-2025 End: 40-15-6824Ycngbla encounter procedureNOMS Rojas PodiatryComment on above:ArrivedStart: 09-04-2025 End: 11-00-8488Glxzqeh encounter vkobpofxa51/28/2025 4:45 PM EDT Office Visit [facility]iatrluis felipe [address] [place] [address] Josue Hinojosa DPSerge [address] [facility] [address] [place] [address] MARINOJohn Rojas PodiatryStart: 08-25-2025 Adult BMI ScreeningAdult BMI ScreeningProAcmc Healthcare System Glenbeigh SystemStart: 08-25-2025 Diabetic foot examinationDiabetic Foot ExamProAcmc Healthcare System Glenbeigh SystemStart: 44-33-9828Qoslvjx ScreeningTobacco ScreeningProAcmc Healthcare System Glenbeigh SystemStart: 63-08-2382Dwuvk screening for proteinUrine MicroalbuminTogus VA Medical Center Start: 08-17-2025 End: 00-39-0075Okzubdm encounter wsmuicymd67/10/2025 11:30 AM EDT Office Visit [facility] [address] [place] [address] Chris Nielsen, COURTNEY [address] [facility] [address] [place] [address] NOMJohn FB ORTHOPAEDICSStart: 07-30-2025 End: 62-41-6931Ponksys encounter crojbkhog81/22/2025 4:00 PM EDT Procedure Visit [facility] [address] [facility] [address] [place] [address] Josue Hinojosa DPM [address] [facility] [address] [place] [address] ArrivedPANDA Rojas PodiatryComment on above:ArrivedStart: 72-29-6363OUFHU-19 Vaccine ( season)COVID-19 Vaccine ( season)NOMS HealthcareStart: 71-95-8811Olekcsfri vaccinationNOTN HealthcareStart: 06-11-2025 End: 17-51-5774Uqsnaug encounter qbcjdncaq93/04/2025 3:30 PM EDT Office Visit [facility] [address] [place] [address] Nadia Sotomayor MD [address] [address] [place] [address] [facility], A Department of [facility] Start: 04-27-2025 End: 56-21-1132Emjgirf encounter procedureProMedica Physicians Adult EndocrinologyStart: 04-25-2025 End: 94-75-0374Czaqqrr encounter kwtefjoii54/18/2025 4:30 PM EDT Office Visit [facility] [address] [facility] [address] [place] [address] DO [address] [place] [address] ERIK ZAVALAUSKYStart: 04-19-2025 End: 13-40-0627Lanmbbs encounter /12/2025 3:45 PM EDT Procedure Visit [facility] [address] [place] [address] Josue Hinojosa DPM [address] [place] [address] N[facility] SWS PODIATRYStart: 66-84-1465Wuqrn BMI Screening Adult BMI ScreeningRiverside Methodist Hospital SystemStart: 92-96-1114Blnssif Screening Tobacco ScreeningProAcmc Healthcare System Glenbeigh SystemStart: 02-26-2025 End: 94-96-5826Xqspsvn encounter heecnkeev97/21/2025 4:00 PM EDT Office Visit [facility] [address] [place] [address] Josue Hinojosa DPM [address] [place] [address] ArrivedNOMS SWS PODIATRYComment on above:ArrivedStart: 01-11-2025 End: 26-16-4905Hbkhgqa encounter weagiuuex09/06/2025 3:45 PM EST Procedure Visit [facility] [address] [place] [address] Josue Hinojosa, DPM [address] [place] [address] NOM[facility] SWS PODIATRYStart: 12-29-2024 End: 55-60-0648Bcdseks encounter phtgoqwry82/21/2025 2:00 PM EST Office Visit [facility] [id number] [place] [address] Faheem Rock, HEALTH DIRECTOR-TOOL SMITH [address] [place] [address] [facility] Adult EndocrinologyStart: 68-74-4250Pdwzp screening for proteinUrine MicroalbuminAsheville Specialty Hospitaltart: 11-02-2024 End: 64-29-8242Utywcyk encounter halxseywt06/26/2024 11:30 AM EST Office Visit [facility] [address] [place] [address] Josue Hinojosa, DPM [address] [place] [address] ArrivedNOMS SWS PODIATRYComment on above:ArrivedStart: 10-25-2024 End: 05-65-3973Bpeexlo encounter ozbnlkvra85/18/2024 4:15 PM EST Procedure Visit [facility] [address] [place] [address] Josue Hinojosa, DPM [address] [place] [address] NOMS SWS PODIATRYStart: 09-27-2024 End: 76-62-7286Cnonhlt encounter gtqokodma64/20/2024 4:00 PM EST Office Visit [facility] [address] [place] [address] Josue Hinojosa, DPM [address] [place] [address] [facility]S [facility] PODIATRYStart: 09-12-2024 End: 58-33-5664Ctvsyca encounter rtmvjzdxu95/05/2024 5:45 PM EST Office Visit [facility] [address] [place] [address], DO [address] [place] [address] NOMS NEUROLOGYStart: 09-04-2024 End: 13-35-9738Roxssxx encounter kagbtjwms59/28/2024 4:00 PM EDT Office Visit [facility] [address] [place] [address] Josue Hinojosa, DPM [address] [place] [address] NOMS [facility] PODIATRYStart: 00-06-4822Ecmal BMI Screening Adult BMI ScreeningRiverside Methodist Hospital SystemStart: 87-70-0555Serabfwb foot examinationDiabetic Foot ExamProAcmc Healthcare System Glenbeigh SystemStart: 34-77-4764Ksyngpl ScreeningTobacco ScreeningProAcmc Healthcare System Glenbeigh SystemStart: 08-28-2024 End: 34-27-3270Grxdnis encounter /21/2024 4:00 PM EDT Office Visit [facility] [address] [place] [address] Josue Hinojosa, DPM [address] [place] [address] NOMS [facility] PODIATRYStart: 08-25-2024 End: 72-89-1643Qyehrky encounter ciwwronni72/18/2024 1:30 PM EDT Office Visit [facility] [address] [place] [address] Faheem Rock, HEALTH DIRECTOR-TOOL SMITH [address] [place] [address] [facility] Adult EndocrinologyStart: 08-21-2024 End: 14-88-4095Lcgkofs encounter procedureNOMS SWS PODIATRYComment on above: ArrivedStart: 08-16-2024 End: 52-28-6348Rfxxrrt encounter procedureNOMS FB ORTHOPAEDICSComment on above: Acute pain of left knee (Primary Dx); History of left knee replacementStart: 08-14-2024 End: 49-63-6346Nvhguaz encounter procedureNOMS SWS PODIATRYComment on above: ArrivedStart: 08-11-2024 End: 10-19-2788Rmbmyog encounter xfzkvajjz43/04/2024 7:30 AM EDT Procedure Visit [facility] Josue Hinojosa, DPM [address] [address] NOMS EXT DEPStart: 08-10-2024 End: 66-33-0924Wtgknpz encounter /03/2024 9:45 AM EDT Office Visit [facility] [address] [place] [address] Josue Hinojosa, DPM [address] [place] [address] NOMS SWS PODIATRYStart: 07-24-2024 End: 01-47-1607Ytgjzyh encounter pikcckvii18/16/2024 4:15 PM EDT Procedure Visit [facility] [address] [place] [address] Josue Hinojosa, DPM [address] [place] [address] NOMS SWS PODIATRYStart: 80-33-3110PHHHL-19 Vaccine ( season)COVID-19 Vaccine ( season)[facility] Start: 29-15-1966GJZTQ-19 Vaccine ( season)COVID-19 Vaccine ( season)[facility] SystemStart: 53-52-1686Ogvogzrcq vaccinationSaint Luke's Health SystemStart: 07-04-2024 End: 55-70-1856Laagwff encounter /27/2024 4:30 PM EDT Office Visit [facility] [address] [place] [address] [facility]eniferAlmaGENERAL [facility] [address] [place], [place] [address] [facility] ROUTEComment on above: ArrivedStart: 07-03-2024 End: 29-74-9262Jbijtwz encounter ewbulmpny22/26/2024 3:00 PM EDT Office Visit [facility] [address] [facility] [address] [place] [address] Chris Nielsen PA [address] [place] [address] NOMS CI ORTHOPAEDICSStart: 03-03-2024 End: 07-10-4159Hnxywvw encounter /26/2024 11:45 AM EDT Office Visit [facility] [address] [place] [address] Nadia Sotomayor MD [address] [place] [address] [facility] Adult EndocrinologyStart: 01-26-2024 End: 76-13-8301Sdqknlq encounter zzrzxlicn59/20/2024 4:15 PM EDT Procedure Visit [facility] [address] [place] [address] Josue Hinojosa, DPM [address] [place] [address] PANDA TA PODIATRYStart: 01-10-2024 End: 72-74-2757Skdtqbz profile includes TSH KH5Mvdbkvr profile includes TSH FT4 Lab Routine Postablative hypothyroidism Expected: 01/10/2024 (Approximate), Expires: 11/15/2024[facility] Work Phone: comment on above:Expected: 01/10/2024 (Approximate), Expires: 11/15/2024Start: 51-11-9671QWZVC-19 Vaccine ( season)COVID- 19 Vaccine ()[facility] SystemStart: 57-38-6388Giilmictu vaccinationRegency Hospital Cleveland Easttart: 01-25-7143Epjrgsmda for malignant neoplasm of cervixNOMS HealthcareStart: 62-07-2973SNQGTRXPEV ASSESSMENTDEPRESSION ASSESSMENTRegency Hospital Cleveland Easttart: 85-34-9809MCNHH-19 VACCINE (4 - Booster for Pfizer series)COVID-19 VACCINE (4 - Booster for Pfizer series)[facility] Start: 24-36-3453KPGZLOAR SCREENDIABETES SCREENRegency Hospital Cleveland Easttart: 11-15-2019 Screening for malignant neoplasm of breastMammogramNOMS HealthcareStart: 50-27-8757VFQEBWMW VACCINE (1 of 2)SHINGRIX VACCINE (1 of 2)[facility] Start: 89-25-1624NVETMPCNE (FIT-DNA)COLOGUARD (FIT-DNA)[facility] Easttart: 72-32-2192LuxaixvyzsqOQKRTOVZADXHechzujvr ClinicStart: 65-86-9426SCOJLWUNUI CANCER SCREENINGCOLORECTAL CANCER SCREENINGRegency Hospital Cleveland Easttart: 99-69-2477FT COLONOGRAPHYCT COLONOGRAPHYRegency Hospital Cleveland Easttart: 56-94-1611KIZHW OCCULT BLOOD FECAL OCCULT BLOODRegency Hospital Cleveland Easttart: 43-44-6473KWMEF SCREENLIPID SCREEN [facility] Easttart: 66-03-9890VTWJTHNADHYEGSGJZAQJGRBGPYNatdszvcd Clinic Start: 14-21-8678PltlivkbxhaLZCQBDJGPGxlkfpgxn ClinicStart: 13-85-8612YTV TESTINGHPV TESTINGRegency Hospital Cleveland Easttart: 87-21-3111Fjvuqmdbp for malignant neoplasm of cervixNOMS HealthcareStart: 96-50-7842SUY TESTINGPAP TESTING [facility]tart: 01-00-6971Bvyrqhjsd for malignant neoplasm of cervixPap SmearNOTN HealthcareStart: 48-20-1782Ijnywesxnkimtl of varicella zoster vaccine Zoster (Shingles) Vaccine (1 of 2)[facility] Hospitaltart: 1986 DTaP,Tdap and Td Vaccines (1 - Tdap)DTaP,Tdap and Td Vaccines (1 - Tdap) [facility]tart: 67-01-5374Aejpcddbg B Vaccines (1 of 3 - 19+ 3- dose series)Hepatitis B Vaccines (1 of 3 - 19+ 3-dose series)[facility] Start: 41-37-6099Bivto microalbumin profileDTAP,TDAP,TD (1 - Tdap)[facility]: 02-14-1100IDTAZWTVF C SCREENINGHEPATITIS C SCREENINGRegency Hospital [facility] Easttart: 97-71-5395XVX SCREENINGHIV SCREENINGRegency Hospital Cleveland Easttart: 18-66-3965Kafngynxiz ScreeningDepression ScreeningAsheville Specialty Hospitaltart: 13-90-9359HNcZ/Tdap/Td Vaccines (1 - Tdap)DTaP/Tdap/Td Vaccines (1 - Tdap)[facility] SystemStart: 59-60-6680LNT Vaccines (1 of 1 - Standard series)MMR Vaccines (1 of 1 - Standard series)[facility] SystemStart: 52-22-3792Jfxldwxj screening Diabetic Ophthalmology ExamAsheville Specialty Hospitaltart: 13-43-0570RZVOSFMZS B (1 of 3 - 3-dose series)HEPATITIS B (1 of 3 - 3-dose series)[facility] Start: 55-87-2714Xhrqzfmaz for malignant neoplasm of colonNOMS Healthcare End: 83-54-5551Cylsyvfcscced metabolic 2000 panel - Serum or PlasmaComprehensive metabolic panel Lab Routine Type 2 diabetes mellitus without complication, without long-term current use of insulin (CMS-HCC) 1 Occurrences starting 08/25/2024 until 08/25/2025[facility] Work Phone: Comment on above:1 Occurrences starting 08/25/2024 until 08/25/2025 End: 94-51-1606Cehseirryoswwm vitamin b-12Vitamin B12 Lab Routine Type 2 diabetes mellitus without complication, without long-term current use of insulin ([facility] [place] 1 Occurrences starting 08/25/2024 until 08/25/2025[facility] [employer] [place] SystemComment on above:1 Occurrences starting 08/25/2024 until 08/25/2025 End: 26-36-3074Jjayb 1996 panel - Serum or PlasmaLipid profile Lab Routine Type 2 diabetes mellitus without complication, without long-term current use of insulin ([facility] [place] 1 Occurrences starting 08/25/2024 until 08/25/2025ProSt. Vincent'S Ch[facility] Mediakraft [place]ür[place] SystemComment on above:1 Occurrences starting 08/25/2024 until 08/25/2025 End: 59-50-0417Rrldjizcmjjl - Albumin: Creatinine Urine RatioMicroalbumin - Albumin: Creatinine Urine Ratio Lab Routine Type 2 diabetes mellitus without complication, without long-term current use of insulin ([facility] [place] 1 Occurrences starting 08/25/2024 until 08/25/2025[facility] [employer]ak[employer] [place] SystemComment on above:1 Occurrences starting 08/25/2024 until 08/25/2025 End: 65-41-8692Dvikvej profile includes TSH QK8Qtpszim profile includes TSH FT4 Lab Routine Postablative hypothyroidism 1 Occurrences starting 08/25/2024 until 08/25/2025[facility] SystemComment on above:1 Occurrences starting 08/25/2024 until 08/25/2025XR Knee - left 1 or 2 ViewsXR knee 1 or 2 views left Imaging Routine Acute pain of left knee 08/16/2024 3:04 PM EDN[facility] Work Phone: Immunizations Immunization DateImmunizationNotesCare ProviderFacilityNEGATED: Highlighted row has not occurred!70-56-1371grlboqmwz, injectable, quadrivalent, preservative freeFaheem Rock APRN-TOOL SMITH Work Phone: pEast [facility] SystemComment on above:Deferred: Patient Refused Payers DatePayer CategoryPayerPolicy [id number] Care Other (unspecified) [employer] .[id number] Private Health [id number] 87-52-1150Xgmbaod987195[id number] 2.0.1.327533.3.579.2.647 [id number] 2.0.1.560482.3.57[id number] 2.0.1.760118.3.57[id number] 2.0.1.407371.3.57[id number] 2.0.1.906460.3.57[id number] 2.840.1.778646.3.57[id number] 2.840.1.019622.3.57[id number] 2.0.1.135885.3.57[id number] 2.16.840.1.453737.3.579.2.267773-19-7926Rqpepfg880343921 2.16.840.1.284959.3.579.[id number] 2.16.840.1.293582.3.579.2.723648-81-3584Naclpog79522183 2.16.840.1.184187.3.579.2.784274-20-8366Rigmlxm44098196 2.16.840.1.037340.3.579.2.584912-04-2192Gmfjgtt43951516 2.16.840.1.135399.3.579.2.387512-76-7516Vyxynjm40175170 2.16.840.1.559461.3.579.2.098962-61-1231Nwbwwas47773047 2.16.840.1.239380.3.579.2.828000-48-1241Jmqlfgv6365713 2.16.840.1.417157.3.579.2.176557-82-6508Qibrhmk3588761 2.16.840.1.929827.3.579.2.678480-04-8933Tdtlnxx3433941 2.16.840.1.546424.3.579.2.849697-99-8858Btfprmh9081787 2..840.1.502370.3.579.2.435868-64-6173Cwtxjje052220973 2.840.1.154870.19 [id number] Social History DateTypeDetailFacilityStart: 12-19-2020 End: 75-17-9053Xhk Assigned At [facility] [employer] Other Start: 09-22-2012 End: 13-16-4736Pwttyew smoking status NHISNever smoked tobaccoAkron [facility] Start: 09-22-2012 End: 02-03-1060Vkdtxpn use and exposureSmokeless tobacco non-userRegency Hospital Cleveland Easttart: 24-99-6872Wubbryp intakeNot AskedRegency Hospital Cleveland Easttart: 1965 Sex Assigned At BirthNot on fileRegency Hospital Cleveland Easttart: 11-03-2023 End: 56-03-8097Cponxba intakeCurrent drinker of alcohol (finding)[facility] Start: 12-19-2020 End: 57-23-6476Vbknauz of Social functionMS HealthcareStart: 02-72-5599Btelaaf Commentcaffeine intake: 1-2 cups per day.[facility]Start: 01-20-2023 Frequency of Alcohol ConsumptionNeBetsy Johnson Regional Hospitaltart: 11-02-2018 Alcohol CommentRarelNationwide Children's Hospital SystemStart: [id number] (finding) [facility] Center[facility] [place] smoking status NHISUnknown if ever smoked [facility] Work Phone: Start: [id number] Assigned At [facility]FeSal[facility] Medical CenterHow often do you have a drink containing alcohol?Never [facility] Medical Equipment Procedure CodeEquipment CodeEquipment Original TextEquipment IdentifierDates [id number], [id number]: 11-03-2018 Goals DatePatient GoalDesired Activity/StatePersonal health goalComment on above: Evaluation of progress towards goal:Discharge home self care w/spouse/family support Clinical Notes 10-14-2021 to 09-18-2025 Note Date & [id number] Miscellaneous Notes* Telephone Encounter - Leilani Purcell LPN - 09/18/2025 9:34 AM EST PLEASE SIGN AND SEND. THANK YOU. documented in this encounterT[facility]us [facility]11-11-2025 Telephone encounter Note* Telephone Encounter - Leilani Purcell LPN - 09/18/2025 9:34 AM EST PLEASE SIGN AND SEND. THANK YOU. [employer]11-10-2025 History of Present illness Narrative* Josue Hinojosa DPM - 09/17/2025 4:15 PM EST Images from the original note were not included. HPI: Richelle Montes presents today for post-op appointment of correction tailor's bunion right, fluoroscopically guided injection bilateral midfoot. Surgery was performed on 09/14/2025 at [facility]. Patient complains of pain 10. Current symptoms [...] days for suture removal. documented in this encounterSaint Luke's Health [id number] History of Present illness Narrative* Josue Hinojosa DPM - 09/04/2025 4:45 PM EDT Images from the original note were not included. HPI: Patient presents today for their pre-operative appointment. The patient is scheduled for correctiontailor's bunion right, fluoroscopically guided injection bilateral midfoot at [facility] with Dr. Hinojosa on 09/14/2025 at 1:00 [...] 3-5 days after surgery. documented in this encounterSaint Luke's Health SystemLwtcxyfipj07-89-0177 [facility]Belle[facility] Note Reason for [...] at that time she was sent to [facility] and she had cardiac catheterization which [...] a past medical history of Asthma, Cancer ([facility]), Diabetes mellitus ([facility]), Hypertension, and Hypothyroid. Surgical History She has [...] DAILY EVERY OTHER D (more content not included)...[facility] 08-15-2025 Telephone encounter Note* Telephone Encounter - Miriam Dolan - 08/15/2025 3:46 PM EDT Patient called requesting antibiotic be sent to [facility] for dentist appt. [facility] [id number] Miscellaneous Notes* Telephone Encounter - Miriam Dolan - 08/15/2025 3:46 PM EDT Patient called requesting antibiotic be sent to [facility] for dentist appt. documented in this encounterSaint Luke's Health SystemKqleotwehn47-84-3815 History of Present illness Narrative* Josue Hinojosa [...] over the callous site. documented in this encounterSaint Luke's Health SystemXszphrnbcn57-23-9000 Miscellaneous Notes* Telephone Encounter - Leliani Purcell LPN - 06/19/2025 9:06 AM EDT PLEASE SIGN AND SEND. THANK YOU. documented in this encounterTogus [facility] Center08-12-2025 Telephone encounter Note* Telephone Encounter - Leilani Purcell LPN - 06/19/2025 9:06 AM EDT PLEASE SIGN AND SEND. THANK YOU. [facility]06-12-20[facility] History of Present illness Narrative* Josue Hinojosa [...] over the callous site. documented in this encounterSaint Luke's Health [id number] History of Present illness Narrative* Josue Hinojosa DPM - 02/26/2025 4:00 PM EDT Images from the original note were not included. HPI: Patient presents today for their pre-operative appointment. The patient is scheduled for injection bilateral foot at [facility] with Dr. Hinojosa on 03/09/2025 at 8:30AM. [...] based on recurrent symptoms. documented in this encounterSaint Luke's Health [id number] NoteBellevue Office Cardiology Clinic Note Reason for [...] at that time she was sent to [facility] and she had cardiac catheterization which [...] a past medical history of Asthma, Cancer ([facility]/HCC), Diabetes mellitus (CMS/HCC), Hypertension, and Hypothyroid. Surgical [...] CELENA, EOMI. NECK: trac (more content not included)...[facility] 01-10-2025 History of Present illness Narrative* Josue Hinojosa DPM - 01/10/2025 4:15 PM EST Images from the original note were not included. HPI: Richelle Montes presents today for post-op appointment of removal of bone left 3rd toe as well as toenail care. Surgery was performed on 08/11/2024 at [facility]. Patient complains of pain 0. Current [...] complication, without long-term current use of insulin ([facility]) E11.9 Plan: Diabetes, Onychomycosis: 1. Nails were [...] over the callous site. documented in this encounterSaint Luke's Health SystemJmkqipbwte33-39-3302 History of Present illness Narrative* Faheem Rock APRN-[employer] - 12/29/2024 2:00 PM EST REASON FOR [...] Disp: , Rfl: lancets (accu-chek soft touch) [facility], Monitor blood sugar daily, Disp: 100 each, [...] Medical History: Diagnosis Date Asthma Breast cancer ([facility] [place] Right breast 2011 DCIS Depression Disease of thyroid gland DM type 2 (diabetes mellitus, type 2) ([facility] [place]) Dry skin Endometrial hyperplasia GERD (gastroesophageal reflux [...] pg/mL Final Lab Results Component Value Date APNTXBJ1X 5.9 12/29/2024 OXGPTQN5Q 5.7 08/25/2024 LWVPTZM6Y 5.5 03/03/2024 Hemoglobin A1C Date Value Ref [...] complication, without long-term current use of insulin ([facility] [place]) - POCT Hemoglobin A1c - POCT Glucose [...] RAYNA Guaman 12/29/24 1401 documented in this encounterTogus [facility] Medical Center02-07-2025 NoteBellevue [facility] Card[facility] Clinic Note Reason for [...] [facility] which [...] a past medical history of Asthma, Cancer ([facility]), Diabetes mellitus ([facility]), Hypertension, and Hypothyroid. Surgical History She has [...] HEAD: atraumatic, normocephalic. EYES (more content not included)...[facility]01-13-2025 Telephone encounter Note* Telephone Encounter - COURTNEY Washburn - 11/20/2024 10:24 PM EST Rx sent to pharmacy [facility] [id number] Miscellaneous Notes* Telephone Encounter - COURTNEY Washburn - 11/20/2024 10:24 PM EST Rx sent to pharmacy * Telephone Encounter - Miriam Dolan - 11/20/2024 3:51 PM EST Patient called requesting antibiotic sent over to [facility] in [place] for her dentist appointment. documented in this encounterSaint Luke's Health SystemLywsakovwb85-82-5218 Telephone encounter Note* Telephone Encounter - Miriam Dolan - 11/20/2024 3:51 PM EST Patient called requesting antibiotic sent over to [facility] for her dentist appointment. [facility] SystemOkvnqadgwj64-22-1365 History of Present illness Narrative* Josue Hinojosa DPM - 11/02/2024 11:30 AM EST Images from the original note were not included. HPI: Richelle Montes presents today for post-op appointment of removal of bone left 3rd toe as well as toenail care. Surgery was performed on 08/11/2024 at [facility]. Patient complains of pain 0. Current [...] for that next spring. documented in this encounterSaint Luke's Health SystemUuubhvnmqm61-21-0620 History of Present illness Narrative* Josue Hinojosa DPM - 10/09/2024 3:45 PM EST Images from the original note were not included. HPI: Richelle Montes presents today for post-op appointment of removal of bone left 3rd toe. Surgery was performed on 08/11/2024 at [facility]. Patient complains of pain 0. Current [...] 2-3 weeks for recheck. [facility] History of Present illness Narrative* Josue Hinojosa DPM - 09/04/2024 4:00 PM EDT Images from the original note were not included. HPI: Richelle Montes presents today for post-op appointment of removal of bone left 3rd toe. Surgery was performed on 08/11/2024 at [facility]. Patient complains of pain 0. Current [...] Wednesday without any restrictions. She has a [place] appointment in 3 weeks and will follow-up then. documented in this encounterSaint Luke's Health SystemPrhsazysdn21-88-8762 History of Present illness Narrative* Josue Hinojosa DPM - 08/21/2024 4:30 PM EDT Images from the original note were not included. HPI: Richelle Montes presents today for post-op appointment of removal of bone left 3rd toe. Surgery was performed on 08/11/2024 at [facility]. Patient complains of pain 4. Current [...] symptoms. RTC: 3 weeks. documented in this encounterSaint Luke's Health SystemDqscuwndyq49-30-6158 History of Present illness Narrative* COURTNEY Washburn [...] Use: Not At Risk (10/07/2018) Received from [facility] [employer] [employer] [facility] Frequency of Alcohol Consumption: Never Average [...] for requiring urgent evaluation. documented in this encounterSaint Luke's Health SystemLihecbxsle12-79-4426 History of Present illness Narrative* Josue Hinojosa DPM - 08/14/2024 4:15 PM EDT Images from the original note were not included. HPI: Richelle Montes presents today for post-op appointment of removal of bone left 3rd toe. Surgery was performed on 08/11/2024 at [facility]. Patient complains of pain 8. Current [...] days for suture removal. documented in this encounterSaint Luke's Health [id number] History of Present illness Narrative* Josue Hinojosa DPM - 08/10/2024 9:45 AM EDT Images from the original note were not included. HPI: Patient presents today for their pre-operative appointment. The patient is scheduled for removal ofbone left 3rd toe at [facility] with Dr. Hinojosa on 08/11/2024 at [...] activities. Patient was dispensed their postoperativeprescriptions including: [place]. A post-operative shoe was also dispensed for [...] 3-5 days after surgery. documented in this encounterSaint Luke's Health SystemWdsfonzmsr46-08-4026 History of Present illness Narrative* Josue Hinojosa [...] over the callous site. [facility] this [facility] History of Present illness Narrative* Alma [...] 2012 FOOT SURGERY Bilateral 1990 HYSTERECTOMY 09/2018 AL KNEE SCOPE,CLEAN/DRAIN Left 2020 AL NASAL SURG PROC UNLISTED TOTAL KNEE ARTHROPLASTY [...] Primary insomnia 1. Migraine - G43.909 (Primary[place] [facility] [id number] 2. Insomnia, unspecified - G47.00[place] [facility] [id number] 58 year old female with headaches made [...] find anything wrong. 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 She has worked there since age 21. [...] to clinic: 6 months documented in this encounterSaint Luke's Health SystemYgvbmezknr41-93-3321 History of Present illness Narrative* Faheem Rock, HEALTH DIRECTOR-[employer] - 08/25/2024 1:30 PM EDT REASON FOR [...] Medical History: Diagnosis Date Asthma Breast cancer ([facility] [place] Right breast 2012 DCIS Depression Disease of thyroid gland DM type 2 (diabetes mellitus, type 2) ([facility] [place]) Dry skin Endometrial hyperplasia GERD (gastroesophageal reflux [...] pg/mL Final Lab Results Component Value Date BNFFOZK8M 5.7 08/25/2024 SFETNBW0N 5.5 03/03/2024 MUEXMTQ5F 5.6 09/03/2023 Hemoglobin A1C Date Value Ref [...] complication, without long-term current use of insulin ([facility] [place]) - POCT Glucose Fingerstick - POCT Hemoglobin [...] RAYNA Guaman 08/25/24 1256 documented in this encounterSelect Medical OhioHealth Rehabilitation Hospital - DublinClinical Ink Core[facility] Butterworth HospitalAztawg13-46-9851 History of Present illness Narrative* Nadia Sotomayor [...] Medical History: Diagnosis Date Asthma Breast cancer ([facility]) Right breast 2012 DCIS Depression Disease of thyroid gland DM type 2 (diabetes mellitus, type 2) ([facility]) Dry skin Endometrial hyperplasia GERD (gastroesophageal reflux [...] pg/mL Final Lab Results Component Value Date OWNYMJN9X 5.5 03/03/2024 DMMJNMW7W 5.6 09/03/2023 AVRXPPP7V 5.9 10/21/2022 Hemoglobin A1C Date Value Ref [...] complication, without long-term current use of insulin ([facility]) - POCT Hemoglobin A1c 2. Postablative hypothyroidism - POCT Hemoglobin A1c - TSH; Future - T4, free; Future RETURN TO CLINIC: [address] [facility]04-26-2024 Miscellaneous Notes* Addendum Note - Kristal Bejarano CMA - 03/03/2024 11:45 AM EDTAddended by: KRISTAL BEJARANO on: 03/03/2024 12:37 PM Modules accepted: Orders documented in this [facility]04-26-2024 Note* Addendum Note - Kristal Bejarano CMA - 03/03/2024 11:45 AM EDTAddended by: KRISTAL BEJARANO on: 03/03/2024 12:37 PM Modules accepted: Orders [facility] [employer] [place] [id number] History of Present illness Narrative* Josue Hinojosa DPM - 11/26/2023 9:30 AM EST See scanned Op note documented in this encounterSaint Luke's Health [id number] Miscellaneous Notes* Telephone Encounter - Courtney Schuler [...] advise. Courtney Schuler LPN documented in this encounterAkron [facility]03-29-2022 Evaluation note* Encounter Date Diagnosis Assessment Notes [...] aid in pain relief at the knee. [facility] Other 03-07-2022 Evaluation note* Encounter Date Diagnosis [...] Jan,ther specified postprocedural states (ICD-10 - Z98.890) [facility] Other 12-28-2021 Evaluation note* Encounter Date Diagnosis [...] - Z98.890) Patient off work until 11/19/21 [facility] Other 12-07-2021 Evaluation note* Encounter Date Diagnosis [...] work for off work until next appointment [facility] Other Evaluation noteNo InformationNort [employer] Other Evaluation note* Diagnosis Primary osteoarthritis, left [...] left knee replacement documented in this encounter [facility] HealthcareEvaluation note* Diagnosis Surgery follow-up examination- Primary Follow-up examination, following unspecified surgery Exostosis of left foot Left foot pain Pain in soft tissues of limb documented in this encounter [facility] HealthcareEvaluation note* Diagnosis Surgery follow-up examination- Primary Follow-up examination, following unspecified surgery Exostosis of left foot Left foot pain Pain in soft tissues of limb documented in this encounter [facility] HealthcareEvaluation note* Diagnosis Postablative hypothyroidism Other postablative hypothyroidism documented [facility]* Diagnosis Surgery follow-up examination- Primary Follow-up examination, following unspecified surgery Exostosis of left foot Left foot pain Pain in soft tissues of limb documented in this encounter [facility] HealthcareEvaluation note* Diagnosis Onychomycosis- Primary Dermatophytosis of nail Pain in both feet Corns and callosities documented in this encounter [facility] HealthcareEvaluation note* Diagnosis Insomnia, unspecified type Chronic migraine without aura without status migrainosus, not intractable ([facility]/HCC) Tension headache Primary insomnia Persistent disorder of initiating or maintaining sleep documented in this encounter [facility] HealthcareEvaluation note* Diagnosis Surgery follow-up examination- Primary Follow-up examination, following unspecified surgery 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 Onychomycosis Dermatophytosis of nail Corns and callosities Pain in both feet Type 2 diabetes mellitus without complication, without long-term current use of insulin ([facility]) documented in this encounter [facility] HealthcareEvaluation note* Diagnosis History of left knee replacement- Primary documented in this encounter [facility] HealthcareEvaluation note* Diagnosis Type 2 diabetes mellitus without complication, without long-term current use of insulin ([facility])- Primary Postablative hypothyroidism Other postablative hypothyroidism documented in this encounter [facility]* Diagnosis Postablative hypothyroidism- Primary Other postablative hypothyroidism [facility]* Diagnosis Type 2 diabetes mellitus without complication, without long-term current use of insulin (CMS-HCC) Type 2 diabetes mellitus without complication, without long-term current use of insulin (CMS-HCC)- Primary Postablative hypothyroidism Other postablative hypothyroidism documented in this encounter [facility]* Diagnosis Type 2 diabetes mellitus without complication, without long-term current use of insulin ([facility])- Primary Postablative hypothyroidism Other postablative hypothyroidism documented in this encounter [facility]* Diagnosis Type 2 diabetes mellitus without complication, without long-term current use of insulin ([facility])- Primary Postablative hypothyroidism Other postablative hypothyroidism documented in this encounter [facility]* Diagnosis Onychomycosis- Primary Dermatophytosis of nail Corns and callosities Pain in both feet Type 2 diabetes mellitus without complication, without long-term current use of insulin (CMS/HCC) documented in this encounter [facility] HealthcareEvaluation note* Diagnosis Osteoarthritis of midtarsal joint of left foot- Primary Osteoarthritis of right ankle and foot Pain in both feet Tailor's bunion of right foot documented in this encounter [facility] HealthcareEvaluation note* Diagnosis Postablative hypothyroidism Other postablative hypothyroidism documented in this encounter [facility]* Diagnosis Corns and callosities- Primary Pain in both feet Type 2 diabetes mellitus without complication, without long-term current use of insulin (HCC) Onychomycosis Dermatophytosis of nail documented in this encounter [facility] HealthcareEvaluation noteNo assessment information availableSt. Vincent Hospital Work Phone: Evaluation note* Diagnosis Corns and callosities- Primary Pain in both feet Onychomycosis Dermatophytosis of nail Type 2 diabetes mellitus without complication, without long-term current use of insulin (HCC) documented in this encounter [facility] HealthcareEvaluation note* Diagnosis History of left knee replacement- Primary documented in this encounter [facility] HealthcareEvaluation note* Diagnosis Tailor's bunion of right foot- Primary Right foot pain Pain in soft tissues of limb documented in this encounter [facility] HealthcareEvaluation note* Diagnosis Surgery follow-up examination- Primary Follow-up examination, following unspecified surgery documented in this encounter [facility] HealthcareHistory general Narrative - Reported* Type Description Date Medical History asthma Medical Historythyroid diseaseMedical Historyhigh blood pressureMedical History diabetes mallitusMedical Historyhigh cholesterolMedical Historybreast nodule Surgical HistoryhysterectomySurgical Historyfoot surgeriesSurgical Historysinus surgerySurgical Historyleft knee arthroscopy, medial menisecectomy. DOS 07/08/21 [facility] Other InstructionsNot on filedocumented in this encounter [facility] SystemInstructionsNot on filedocumented in this encounter [facility] SystemInstructionsNot on filedocumented in this encounter [facility] SystemInstructionsNot on filedocumented in this encounter [facility] SystemInstructionsNot on filedocumented in this encounter [facility] SystemReason for referral (narrative)No reason for referral information availableSt. Vincent Hospital Work Phone: Summary Purpose Family History Relationship Condition Age at Onset Recorded Date/T leeanna mother Unknown Malignant neoplasmUnknown Advance Directives Date ActivatedDate PfrzlcuftagQzgvemcs43/14/2018 5:41 AM10/26/2018 5:32 PMDate ActivatedDate GjttpwadbjkFomqxnet67/2/2018 5:39 PM10/12/2018 6:49 PMCode Status Date ActivatedDate InactivatedCommentsFull Code10/21/2018 5:41 AM10/26/2018 5:32 PMCode StatusDate ActivatedDate InactivatedCommentsFull Code10/09/2018 5:39 PM 10/12/2018 6:49 PM Advance Directive Response Recorded Date/ Time Advance Directives No August 18, 2019 3:48pm Additional Source Comments INFORMATION SOURCE (unrecogn ized section and content) DATE CREATED AUTHOR 10/27/2018 [facility] DATE CREATED AUTHOR AUTHOR'S ORGANIZ ATION 05/29/2019 [facility] DATE CREATED AUTHOR AUTHOR'S ORGANIZ ATION 01/13/2022 [facility] DATE CREATED AUTHOR AUTHOR'S ORGANIZ ATION 12/26/2022 [place] DATE CREATED AUTHOR AUTHOR'S ORGANIZ ATION 04/16/2023 [facility] DATE CREATED AUTHOR AUTHOR'S ORGANIZ ATION 11/14/2023 [facility] DATE CREATED AUTHOR AUTHOR'S ORGANIZ ATION 08/28/2024 [facility] DATE CREATED AUTHOR AUTHOR'S ORGANIZ ATION 12/31/2024 [facility] DATE CREATED AUTHOR AUTHOR'S ORGANIZ ATION 08/20/2025 [facility] DATE CREATED AUTHOR AUTHOR'S ORGANIZ ATION 09/18/2025 [facility] EPIC REASON FOR VISIT (unrecogniz ed section and content) ReasonOnset DateCommentsMed Grxzgg4409/18/2025ReasonOnset DateCommentsMed Refill 08/15/2025ReasonOnset DateCommentsMed Uhtikh7406/19/2025ReasonCommentsDiabetes ReasonOnset SnchLpjtthvkioeurgh14/13/2025ReasonCommentsMigraineReasonCommentsMed RefillReasonCommentsPainReasonCommentsPatient QuestionRecheck Left Knee Source Comments (unrecognize d section and content) In the event this informatio n is protected by the Federal Confidentiality of Alcohol and Drug Abuse Patient Records regulations: The Federal rules restrict any use of the information to criminally investigate or prosecute any alcohol or drug abuse patient.[facility] Care Teams (unrecognized sec tion and content) Team MemberRelationshipSpecialtyStart DateEnd Date Chacha Evans MD PCP - GeneralFamily Uzbzaohx49/23/19Team MemberRelationshipSpecialtyStart Date End Date Chacha Evans MD [address] [place] [address] PCP - GeneralFamily Medicine04/27/23Team MemberRelationshipSpecialtyStart DateEnd Date Chacha Evans MD [address] [facility] [place] [address] PCP - GeneralFamily Medicine04/27/[address] DO [address] [place] [address] Referring PhysicianNeurology2/Team MemberRelationshipSpecialtyStart DateEnd Date Chacha Evans MD [address] [facility] [address] [facility] - [facility] Medicine04/27/[address] DO [address] [place] [address] Referring PhysicianNeurology2Team MemberRelationshipSpecialtyStart DateEnd Chacha Evans MD [address] [facility] [place] [address] PCP - GeneralFami Medicine04/27/[address] DO [address] [place] [address] Referring PhysicianNeurology2Team MemberRelationshipSpecialtyStart DateEnd Date Chacha Evans MD [address] [place] [facility] [place] [address] PCP - [facility]Fafr[facility]04/27/[address] DO [address] [place] [address] Referring PhysicianNeurology2/27/24Team MemberRelationshipSpecialtyStart DateEnd Date Chacha Evans MD [address] [facility] [place] [address] PCP - GeneralFamily Medicine04/27/[address] DO [address] [place] [address] Referring PhysicianNeurolog01/04/24Team MemberRelationshipSpecialtyStart DateEnd Date Chacha Evans MD [address] [facility] [place] [address] PCP - GeneralFamily Medicine04/27/[address] DO [address] [place] [address] Referring PhysicianNeurology2Team MemberRelationshipSpecialtyStart DateEnd Date Chacha Evans MD PCP - GeneralFamily Shkflzqe79/14/22Team MemberRelationshipSpecialtyStart Date End Date Chacha Evans MD [address] [facility] [place] [address] PCP - GeneralFamily Medicine04/27/[address] DO [address] [place] [address] Referring PhysicianNeurology2Team MemberRelationshipSpecialtyStart DateEnd Date Chacha Evans MD [address] [facility] [place] [address] PCP - GeneralFamily Medicine04/27/[address] DO [address] [place] [address] Referring PhysicianNeurology2Team MemberRelationshipSpecialtyStart DateEnd Date Chacha Evans MD [address] [facility] [place] [address] PCP - GeneralFamily Medicine04/27/[address] DO [address] [place] [address] Referring PhysicianNeurology2Team MemberRelationshipSpecialtyStart DateEnd Date Chacha Evans MD [address] [facility] [place] [address] PCP - Generalmi Medicine04/27/[address] DO [address] [place] [address] Referring PhysicianNeurology2Team MemberRelationshipSpecialtyStart DateEnd Date Chacha Evans MD [address] [facility] [place] [address] PCP - GeneralFami Medicine04/27/[address] DO [address] [place] [address] Referring PhysicianNeurology2Team MemberRelationshipSpecialtyStart DateEnd Date Chacha Evans MD [address] [place] [address] PCP - GeneralFamily Rggdbecx82/14/22Team MemberRelationshipSpecialtyStart Date End Date Chacha Evans MD [address] [place] [address] PCP - GeneralFamily Lrdwpznc16/14/22Team MemberRelationshipSpecialtyStart Date End Date Chacha Evans MD PCP - GeneralFamily Eoyhrxee38/14/22Team MemberRelationshipSpecialtyStart Date End Date Chacha Evans MD PCP - GeneralFamily Ykzzyigb65/14/22Team MemberRelationshipSpecialtyStart Date End Date Chacha Evans MD PCP - GeneralFamily Ihwmeuxl35/14/22Team MemberRelationshipSpecialtyStart Date End Date Chacha Evans MD [address] [place] [address] PCP - GeneralFamily Medicine04/27/[address] DO [address] [place] [address] Referring PhysicianNeurology2Team MemberRelationshipSpecialtyStart DateEnd Date Chacha Evans MD [address] [place] [address] PCP - GeneralFamily Medicine04/27/[address] DO [address] [place] [address] Referring PhysicianNeurology2Team MemberRelationshipSpecialtyStart DateEnd Chacha Evans MD [address] [facility] [place] [address] PCP - [facility]04/13/[address] DO [address] [place] [address] Referring PhysicianNeuro[facility]aint [facility] [place]/04/24Team MemberRelationshipSpecialtyStart DateEnd Chacha Evans MD [address] [facility] [place] [address] PCP - [facility]04/13/[address] DO [address] [place] [address] Referring PhysicianNeurosaint [facility] [place]/04/24 Team Status: Active Member Role Status Lindsey Evans MD Primary Care Provider Active Team Status: Inactive Member Role Status Lindsey Evans MD Primary Care Provider Active Start: June 25, 2025 End: June 25, 2025Nicole DO YeniferAttending ProviderActiveStart: June 25, 2025 End: June 25, 2025Team MemberRelationshipSpecialtyStart DateEnd Date Chacha Evans MD [address] [facility] [place] [address] PCP - [facility]04/13/[address] DO [address] [place] [address] Referring PhysicianNeurology2Team MemberRelationshipSpecialtyStart DateEnd Date Chacha Evans MD [address] [facility] [place] [address] PCP - Generalmily Medicine04/13/[address] DO [address] [place] [address] Referring PhysicianNeurology2Team MemberRelationshipSpecialtyStart DateEnd Date Chacha Evans MD [address] [place] [address] PCP - Generalmily Medicine04/13/[address] DO [address] [place] [address] Referring PhysicianNeurology2Team MemberRelationshipSpecialtyStart DateEnd Chacha Evans MD [address] [place] [address] PCP - Generalmily Medicine04/13/[address] DO [address] [place] [address] Referring PhysicianNeurology2Team MemberRelationshipSpecialtyStart DateEnd Date Chacha Evans MD [address] [facility] [place] [address] PCP - Generalmily Medicine04/13/[address], [address] [place] [address] Referring PhysicianNeurology2 Goals (unrecognized section and content) [...] BE BASED ON THE PRIMARY CLINICAL RECORDS. [employer] [facility] provides no warranty or guarantee of the accuracy or completeness of information in this document.
== END 2025-10-08 12:25 | disposition home or self-care (01) ==
LOC: LAB 12:24
PROVIDERS: PCP Family Medicine; Visit Provider Family Medicine
DX: Z00.00 Encounter for general adult medical examination without abnormal findings (principal)
CPT/HCPCS: G0328